=== PATIENT | female | born 2000 | race Caucasian/White ===

== ENCOUNTER 2019-06-30 12:30 | Emergency (ER) | payer OTHER, SELFPAY ==
[2019-06-30 12:51] VITALS: BP 112/67; PULSE 80; RESP 18; TEMP 36.9; O2SAT 100
--- NOTE | 2019-06-30 13:11 | ED.ALLEREA ---
HPI - Allergic Reaction General Chief complaint: Allergic Reaction Stated complaint: ? Allergic reaction Time Seen by Provider: 06/30/19 12:39 Source: patient Mode of arrival: ambulatory Limitations: no limitations History of Present Illness HPI narrative: Patient is a 19-year-old female who presents to emergency department for evaluation of possible allergic reaction with irritation in the throat that began just prior to arrival after drinking a drink patient has a history of allergic reaction took Benadryl just prior to arrival patient notes mild scratchiness of the throat denies other complaints. Related Data Home Medications Medication Instructions Recorded Confirmed sertraline [Zoloft] 25 mg PO DAILY 06/30/19 06/30/19 Allergies Allergy/AdvReac Type Severity Reaction Status Date / Time Penicillins Allergy Intermediate Itching Verified 06/30/19 12:58 tree nut Allergy Intermediate Hives / Verified 06/30/19 12:58 Red Face Review of Systems Review of Systems: All systems reviewed & are unremarkable except as noted in HPI and below PMFSH Past Medical History Medical History Patient denies medical problems Social History Social History Tobacco type: e-cigarettes Gender identity (if verbalized by the patient): Female Exam Narrative: Exam Narrative: GENERAL: Well-appearing, well-nourished, and in no acute distress. HEAD: Normocephalic, atraumatic. EYES: PERRLA and EOMI. ENT: Nares clear, no rhinorrhea or epistaxis. Mucous membranes moist. Oropharynx without tonsillar hypertrophy exudate or other lesions. No angioedema in the oropharynx NECK: Supple. No adenopathy or masses. No stridor CHEST: Clear to auscultation. No respiratory distress. No wheezes rales or rhonchi HEART: Regular rate and rhythm. No murmur heard. Normal peripheral pulses. ABDOMEN: Soft, nontender, nondistended EXTREMITIES: Normal range of motion. No edema. SKIN: Warm, dry, no rash. NEURO: No focal deficits. Alert and oriented x3. Cranial nerves II through XII grossly intact PSYCH: Normal mood and affect. Course Course Emergency Course: Patient resting comfortably in the room in no distress with no worsening scenario afebrile nontoxic-appearing felt appropriate for outpatient reevaluation Vital Signs Vital signs: Vital Signs Temperature 98.5 F 06/30/19 12:51 Pulse Rate 80 06/30/19 12:51 Respiratory Rate 18 06/30/19 12:51 Blood Pressure 112/67 06/30/19 12:51 Pulse Oximetry 100 06/30/19 12:51 Temperature 98.5 F 06/30/19 12:51 Pulse Rate 80 06/30/19 12:51 Respiratory Rate 18 06/30/19 12:51 Blood Pressure 112/67 06/30/19 12:51 Pulse Oximetry 100 06/30/19 12:51 MDM - Allergic Reaction MDM Narrative Medical decision making narrative: Patient in the room in no distress no concerning findings at this time has been observed in the ER for 2 hours with no worsening condition felt appropriate for outpatient reevaluation provided with reasons to return Discharge Plan Discharge Clinical Impression: Allergic reaction Patient Disposition: Home, Self-Care Condition: Stable Instructions: Antibiotic Form, Anaphylaxis (ED) Additional Instructions: Follow up with your primary care provider within 5-7 days. Go to ER for shortness of breath, difficulty breathing, chest pain, fever/chills, weakness, nauseau/vomitting, throat tightening or tongue swelling etc. or any other concerns. Stay well-hydrated Take any prescribed medications as directed. Follow patient education sheets If you do not have a drug allergy to tylenol or motrin and can tolerate it then take tylenol or motrin as needed for discomfort/pain. Prescriptions: No Action sertraline [Zoloft] 25 mg Tablet 25 mg PO DAILY RF: 0 Follow-up/Referrals: UNKNOWN,DOCTOR [Primary Care Provider] -
[2019-06-30] MEDS: FAMOTIDINE 20 MG TABLET PO (13:12)
[2019-06-30] MEDS: predniSONE 20 MG TABLET 60 MG PO (13:12)
== END 2019-06-30 14:48 | disposition home or self-care (01) ==
PROVIDERS: Emergency Provider Emergency Medicine
DX: T78.40XA Allergy, unspecified, initial encounter (principal); F17.290 Nicotine dependence, other tobacco product, uncomplicated
CPT/HCPCS: 99283; A9270; J7512

== ENCOUNTER 2020-08-22 19:00 | Emergency (ER) | payer OTHER, SELFPAY ==
[2020-08-22 19:16] VITALS: BP 113/65; PULSE 80; RESP 16; TEMP 36.5; O2SAT 100
--- NOTE | 2020-08-22 19:45 | ED.BACK ---
HPI - Back Pain/Injury General Chief Complaint: Back Pain/Injury Stated Complaint: fell back pain Source: patient Mode of arrival: ambulatory Limitations: no limitations History of Present Illness HPI Narrative: Patient is a 20-year-old female who presents complaining of lower back pain that radiates down right leg. Patient reports fall while playing soccer approximately 2 weeks ago. Patient reports having x-rays completed and is currently seeing a chiropractor. She denies loss of bowel or bladder control. She reports a history of sciatica. She denies all other complaints at this time. MD elicited complaint: back pain Related Data Home Medications Medication Instructions Recorded Confirmed fluticasone propionate [Flovent 2 puff INHALATION BID 08/22/20 08/22/20 HFA] lamotrigine 50 mg PO DAILY 08/22/20 08/22/20 lithium carbonate 300 mg PO QAM 08/22/20 08/22/20 lithium carbonate 450 mg PO HS 08/22/20 08/22/20 olanzapine 5 mg PO QAM 08/22/20 08/22/20 olanzapine 10 mg PO HS 08/22/20 08/22/20 spironolactone 25 mg PO DAILY 08/22/20 08/22/20 trazodone 100 mg PO HS 08/22/20 08/22/20 Allergies Allergy/AdvReac Type Severity Reaction Status Date / Time tree nut Allergy Severe Anaphylaxis Verified 08/22/20 19:28 Penicillins Allergy Intermediate Hives Verified 08/22/20 19:28 Review of Systems Review of Systems: Narrative: CONSTITUTIONAL: Denies fever, chills, or sweats. EYES: Denies visual changes, redness, or discharge. ENT: Denies rhinorrhea, congestion, sore throat, or otalgia. CARDIOVASCULAR: Denies chest pain, palpitations, or edema. RESPIRATORY: Denies cough or dyspnea. GASTROINTESTINAL: Denies abdominal pain, nausea, vomiting, or diarrhea. GENITOURINARY: Denies dysuria or hematuria. SKIN: Denies rash or itching. MUSCULOSKELETAL: Lower back pain NEUROLOGIC: Denies headache, numbness, dizziness, or weakness. PSYCHIATRIC: Denies anxiety or depression. [facility] Past Medical History Medical History Patient denies medical problems Social History Social History (Updated 08/22/20 @ 19:53 by SAMI Foy) Smoking status: Current every day smoker Tobacco type: e-cigarettes/vaping Alcohol intake: current Alcohol use details: Occasional Substance use: never Living arrangements: with family Gender identity (if verbalized by the patient): Female Comments At the time of signature, I have reviewed and agree with nursing past medical, surgical, social, and family history unless otherwise noted. Please see nursing chart for further information. There is no relevant family history pertinent to the presenting complaint. Exam Narrative: Exam Narrative: GENERAL: Well-appearing, well-nourished, and in no acute distress. HEAD: Normocephalic, atraumatic. EYES: EOMI. No redness or drainage. Conjunctiva are normal. ENT: Mucous membranes pink and moist. CHEST: No respiratory distress. Clear to auscultation. HEART: Regular rate and rhythm. MUSCULOSKELETAL: No bony tenderness. EXTREMITIES: Normal range of motion. No edema. SKIN: Warm, dry, no rash. NEURO: No focal deficits. Alert and oriented x3. Gait steady. PSYCH: Normal affect. No signs of depression or anxiety. Course Vital Signs Vital signs: Vital Signs Temperature 36.5 C 08/22/20 19:16 Pulse Rate 80 08/22/20 19:16 Respiratory Rate 16 08/22/20 19:16 Blood Pressure 113/65 08/22/20 19:16 Pulse Oximetry 100 08/22/20 19:16 Temperature 36.5 C 08/22/20 19:16 Pulse Rate 80 08/22/20 19:16 Respiratory Rate 16 08/22/20 19:16 Blood Pressure 113/65 08/22/20 19:16 Pulse Oximetry 100 08/22/20 19:16 Reviewed MDM - Back Pain/Injury MDM Narrative Medical decision making narrative: Patient reports history of sciatica. Patient most likely has sciatica. Patient refuses x-ray at this time. Discussed use of Tylenol for pain, muscle relaxant as well as steroids. Tim
== END 2020-08-22 19:50 | disposition home or self-care (01) ==
PROVIDERS: Emergency Provider Nurse Practitioner
DX: M54.16 Radiculopathy, lumbar region (principal); M54.31 Sciatica, right side; F17.200 Nicotine dependence, unspecified, uncomplicated; J45.909 Unspecified asthma, uncomplicated; F31.9 Bipolar disorder, unspecified
CPT/HCPCS: 99213; G0463

== ENCOUNTER 2020-09-07 16:26 | Emergency (ER) | payer OTHER, SELFPAY ==
--- NOTE | 2020-09-07 16:44 | ED.FEMALEGU ---
HPI - Female Genitourinary General Chief complaint: Urogenital-Female Stated complaint: uti Time Seen by Provider: 09/07/20 16:44 Source: patient Mode of arrival: ambulatory Limitations: no limitations History of Present Illness HPI Narrative: Linh Lion is a 20 yo female with history of bipolar disorder who saw [facility] on , put on macrobid for dysurua, is not any better and now has back pain Related Data Home Medications Medication Instructions Recorded Confirmed lamotrigine 50 mg PO DAILY 08/22/20 09/07/20 lithium carbonate 300 mg PO QAM 08/22/20 09/07/20 Allergies Allergy/AdvReac Type Severity Reaction Status Date / Time tree nut Allergy Severe Anaphylaxis Verified 08/22/20 19:28 Penicillins Allergy Intermediate Hives Verified 08/22/20 19:28 Review of Systems Review of Systems: Narrative: CONSTITUTIONAL: Denies fever, chills, sweats. EYES: Denies visual changes, redness, discharge. ENT: Denies rhinorrhea, congestion, sore throat, otalgia. CARDIOVASCULAR: Denies chest pain, palpitations, edema. RESPIRATORY: Denies dyspnea, wheezing, cough GASTROINTESTINAL: Denies abdominal pain, nausea, vomiting, diarrhea. GENITOURINARY: Denies dysuria, hematuria, abnormal discharge SKIN: Denies rash or itching. NEUROLOGIC: Denies numbness, or focal weakness. PSYCHIATRIC: Denies anxiety or depression. Worsening dysuria PMFSH Past Medical History Medical History (Updated 09/07/20 @ 16:58 by Sandy Ruiz CNP) Patient denies medical problems Social History Social History Smoking status: Current every day smoker Tobacco type: e-cigarettes/vaping Alcohol intake: current Substance use: never Gender identity (if verbalized by the patient): Female Comments At time of signature, I agree with nursing past medical, surgical, social and family history. There is no relevant family history pertinent to the presenting complaint. Exam Narrative: Exam Narrative: GENERAL: This is a well-nourished, well-developed patient, in mild distress. HEAD: normocephalic, atraumatic. EYES: Sclera clear/white. Vision is grossly intact. EARS: External ears normal, . Hearing grossly intact. NOSE: External nose normal without nasal discharge, nares without redness, no rhinorrhea. THROAT: Mucous membranes moist, NECK: Neck supple, non-tender CARDIOVASCULAR: Regular rate and rhythm without murmurs, gallops, or rubs. RESPIRATORY: Clear to auscultation. Breath sounds equal bilaterally. No wheezes, rales, or rhonchi. GASTROINTESTINAL: Abdomen soft, non-tender, SKIN: warm, intact with no suspicious lesions or rash, good texture and turgor. NEURO: awake, alert, and oriented to person, place and time. There were no obvious focal neurologic abnormalities. Steady gait EXTREMITIES: Normal range of motion. BACK: Nontender without deformity Course Course Emergency Course: Patient seen at [facility] and given Macrobid on Thursday is here with increased back pain and increased dysuria Urine dipstick shows 3+ leukocytes 2+ blood, 2+ protein Patient started on ciprofloxacin-500 mg twice daily x7 days Patient given Pyridium Follow-up with PCP Vital Signs Vital signs: Vital Signs Temperature 97.7 F 09/07/20 16:52 Pulse Rate 103 H 09/07/20 16:52 Respiratory Rate 18 09/07/20 16:52 Blood Pressure 114/63 09/07/20 16:52 Pulse Oximetry 100 09/07/20 16:52 Temperature 97.7 F 09/07/20 16:52 Pulse Rate 103 H 09/07/20 16:52 Respiratory Rate 18 09/07/20 16:52 Blood Pressure 114/63 09/07/20 16:52 Pulse Oximetry 100 09/07/20 16:52 MDM - Female Genitourinary Differential Diagnosis Differential diagnosis: Likely urinary tract infection, vaginitis, cystitis and other Lab Data Labs: Urine Glucose Negative Reference Range: Negative Urine Bilirubin Negative
[2020-09-07 16:52] VITALS: BP 114/63; PULSE 103; RESP 18; TEMP 36.5; O2SAT 100
== END 2020-09-07 17:01 | disposition home or self-care (01) ==
PROVIDERS: Emergency Provider Nurse Practitioner
DX: N30.01 Acute cystitis with hematuria (principal); F17.200 Nicotine dependence, unspecified, uncomplicated; J45.909 Unspecified asthma, uncomplicated; F31.9 Bipolar disorder, unspecified
CPT/HCPCS: 81003; 87086; 87088; 87147; 99213; G0463

== ENCOUNTER 2020-11-03 11:01 | Emergency (ER) | payer OTHER, SELFPAY ==
--- NOTE | ~2020-11-03 | CT_ITS ---
EXAMINATION: CT abdomen pelvis w con DATE: 11/03/2020 12:32 INDICATION: Left abdominal pain. Nausea, vomiting, and diarrhea. TECHNIQUE: Computed tomography (CT) of the abdomen and pelvis was performed with 100 mL Omnipaque 350 intravenous contrast. Automated exposure control and iterative reconstruction technique were employe d. The dose-length product was 240.31 mGy-cm. COMPARISON: None. FINDINGS: The visualized portions of the lung bases demonstrate minimal atelectasis. No pleural effus ion. The heart size is normal. No pericardial effusion. The liver and gallbladder are normal. There i s an 11 mm low-attenuation lesion in the spleen, likely benign. The pancreas, adrenal glands, and kid neys are normal. There is an intrauterine device in abnormal position. One of the tines pierces the m yometrium. There are no dilated loops of bowel. The appendix is normal. There are no pathologically e nlarged lymph nodes. There is trace physiologic fluid in the pelvis. The bones are unremarkable. IMPRESSION: 1. Intrauterine device in abnormal position. One of the tines pierces the myometrium. Reviewed, dictated and finalized at location A. IMPRESSION: 1. Intrauterine device in abnormal position. One of the tines pierces the myome trium.
[2020-11-03 11:02] VITALS: BP 124/73; PULSE 95; RESP 15; TEMP 36.7; O2SAT 100
[2020-11-03 11:31] LABS: Basophils Percent Auto 0.5 % (0.2-1.2); Eosinophils Absolute Auto 0.2 K/mm3 (0-0.3); Eosinophils Percent Auto 2.2 % (0-4.4); Hematocrit 37.9 % (37.0-47.0); Hemoglobin 12.4 g/dL (12.0-15.0); Immature Granulocyte Absolute 0.03 K/mm3 (0.00-0.031); Immature Granulocyte Percent A 0.4 % (0-0.5); Lymphocytes Absolute Auto 1.22 K/mm3 (0.9-3.2); Lymphocytes Percent Auto 16.1 % (18.3-44.2); Mean Corpuscular HGB Conc 32.7 g/dl (32-36); Mean Corpuscular Hemoglobin 28.9 pg (26-34); Mean Corpuscular Volume 88.3 fl (80-100); Mean Platelet Volume 10.5 fl (7.4-10.4); Monocytes Absolute Auto 0.7 K/mm3 (0.1-0.6); Monocytes Percent Auto 9.4 % (2.6-8.5); Neutrophils Absolute Auto 5.4 K/mm3 (1.3-6.7); Neutrophils Percent Auto 71.4 % (45.5-73.1); Platelet Count Result 210 k/mm3 (150-375); Red Blood Count 4.29 M/mm3 (4.2-5.4); Red Cell Distribution Width 12.9 % (11.5-14.5); White Blood Count 7.6 K/mm3 (4.5-10.0)
[2020-11-03 11:37] LABS: Add Urine Microscopic? YES; Appearance Urine Clear (Clear); Bilirubin Urine Negative (Negative); Blood Urine Negative (Negative); Color Urine Yellow (Yellow); Glucose Urine UA Negative (Negative); Ketones Urine Negative (Negative); Leukocyte Esterase Ur Negative LEU/UL (Negative); Mucus Urine Rare /lpf; Nitrate Urine Negative (Negative); Protein Urine 2+ mg/dL (Negative); RBC Urine 0-2 /hpf (0-2); Specific Grav Ur 1.024 (1.001-1.035); Squamous Epithelial Cell Urine Rare /hpf (Few); Urobilinogen Urine Negative mg/dL (<2.0); WBC Urine 0-3 /hpf
[2020-11-03 11:40] LABS: Alanine Aminotransferase 17 U/L (4-35); Albumin Level 4.8 g/dL (3.5-5.1); Alkaline Phosphatase 52 U/L (38-126); Anion Gap 8 mmol/L (8-16); Aspartate Amino Transferase 30 U/L (14-36); Bilirubin,Total 0.9 mg/dL (0.2-1.3); Blood Urea Nitrogen 10 mg/dL (7-17); Carbon Dioxide 26 mmol/L (22-30); Chloride 105 mmol/L (98-107); Estimated CRCL calculation 109 ml/min; Estimated Glomerular Filt Rate > 60; Glucose 88 mg/dL (65-105); Lipase 56 U/L (23-300); Potassium 3.6 mmol/L (3.4-5.0); Sodium 139 mmol/L (137-145)
--- NOTE | 2020-11-03 11:48 | ED.GENADULT ---
HPI - General Adult General Chief complaint: Nausea/Vomiting/Diarrhea Stated complaint: vomiting Time Seen by Provider: 11/03/20 11:08 Source: patient Mode of arrival: ambulatory Limitations: no limitations History of Present Illness HPI narrative: Patient presents for evaluation of nausea, vomiting, diarrhea for the last 2 and half weeks. 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 She came in today because she was concerned that she may have. She denies any fever or chills. Reports dysuria without any hematuria, urinary frequency, hesitancy, or other urinary symptoms. She denies any vaginal discharge. LMP now. Reports occasional alcohol use with last intake last night. She is concerned that she had a small amount of blood noted in her emesis today. Related Data Home Medications Medication Instructions Recorded Confirmed lamotrigine 50 mg PO DAILY 08/22/20 09/07/20 lithium carbonate 300 mg PO QAM 08/22/20 09/07/20 spironolactone 25 mg PO DAILY 11/03/20 Allergies Allergy/AdvReac Type Severity Reaction Status Date / Time tree nut Allergy Severe Anaphylaxis Verified 11/03/20 11:15 Penicillins Allergy Intermediate Hives Verified 11/03/20 11:15 Review of Systems Review of Systems: Narrative: CONSTITUTIONAL: Denies fever, chills, or sweats. EYES: Denies visual changes, redness, or discharge. ENT: Denies rhinorrhea, congestion, sore throat, or otalgia. CARDIOVASCULAR: Denies chest pain, palpitations, or edema. RESPIRATORY: Denies cough or dyspnea. GASTROINTESTINAL: Reports abdominal pain, nausea, vomiting, diarrhea GENITOURINARY: Reports dysuria. Denies urinary frequency, hesitancy, hematuria SKIN: Denies rash or itching. MUSCULOSKELETAL: Denies back pain, joint pain, or myalgia. NEUROLOGIC: Denies headache, numbness, dizziness, or weakness. PSYCHIATRIC: Denies anxiety or depression. [facility] Past Medical History Medical History (Updated 11/03/20 @ 13:08 by Kyle Sánchez, SAMI, ) Anxiety Surgical History Surgical History No pertinent past surgical history Family History Family History Mother No pertinent past medical history Social History Social History (Updated 11/03/20 @ 11:50 by SAMI Barrera, ) Smoking status: Current every day smoker Tobacco type: e-cigarettes/vaping Alcohol intake: current Alcohol use details: Occasional Substance use type: marijuana Living arrangements: with family Gender identity (if verbalized by the patient): Female Spiritual care concerns: No Exam Narrative: Exam Narrative: GENERAL: Well-appearing, well-nourished, and in no acute distress. HEAD: Normocephalic, atraumatic. EYES: PERRLA and EOMI. ENT: Nares clear, no rhinorrhea or epistaxis. Mucous membranes moist. Oropharynx without tonsillar hypertrophy exudate or other lesions. Bilateral TMs pearly castellanos nonbulging NECK: Supple. No adenopathy or masses. No carotid bruits or JVD CHEST: Clear to auscultation. No respiratory distress. No wheezes rales or rhonchi HEART: Regular rate and rhythm. No murmur heard. Normal peripheral pulses. ABDOMEN: Soft, tenderness noted in epigastric region, left upper and left lower quadrants. Nondistended, normal active bowel sounds. EXTREMITIES: Normal range of motion. No edema. SKIN: Warm, dry, no rash. NEURO: No focal deficits. Alert and oriented x3. PSYCH: Normal mood and affect Course Course Emergency Course: This is a 20-year-old female who presented with complaints of nausea, vomiting, diarrhea. CT scan was essentially normal. She did have piercing of myometrium without complication. She was advised to follow up with [facility] for this. She requested discharge orders home. Labs were stable and patient was nontoxic appearing. Plans to discharge with Zofran and Lomotil an
[2020-11-03] MEDS: ONDANSETRON INJ 4 MG/2 ML VIAL IV PUSH (11:57)
[2020-11-03] MEDS: SODIUM CHLORIDE 0.9% IV 1,000 ML 999 ML IV CONT (11:57)
[2020-11-03] MEDS: FAMOTIDINE 20 MG/2 ML VIAL IV PUSH (11:57)
[2020-11-03 13:01] VITALS: BP 106/72; PULSE 91; RESP 18; O2SAT 100
== END 2020-11-03 13:22 | disposition home or self-care (01) ==
PROVIDERS: Emergency Provider Nurse Practitioner; PCP Emergency Medicine
DX: R11.2 Nausea with vomiting, unspecified (principal); R19.7 Diarrhea, unspecified; T83.32XA Displacement of intrauterine contraceptive device, initial encounter; F41.9 Anxiety disorder, unspecified; F17.290 Nicotine dependence, other tobacco product, uncomplicated
CPT/HCPCS: 36415; 74177; 80053; 81001; 81025; 83690; 85025; 96361; 96374; 96375; 99284; J2405; J7030; Q9967

== ENCOUNTER 2021-02-06 16:00 | Emergency (ER) | payer OTHER, MEDICAID, SELFPAY ==
[2021-02-06] VITALS (14 sets, daily range): BP systolic 99–127; BP diastolic 64–82; PULSE 78–93; RESP 14–24; TEMP 36.4; O2SAT 94–100
--- NOTE | ~2021-02-06 | XR_ITS ---
XR chest 2V DATE: 02/06/2021 16:39 INDICATION: Chest pain. Recent onset of control medication. TECHNIQUE: PA and lateral views COMPARISON: 04/10/2019 2 view chest FINDINGS: Normal heart size. No hilar or mediastinal enlargement. No pulmonary infiltrate or consolid ation, pleural effusion or pulmonary vascular congestion or pneumothorax. Included skeletal structures are unremarkable. IMPRESSION: Negative chest Negative chest does not preclude the possibility of pulmonary embolism. CT pulmonary scan would be mo re sensitive for detection of pulmonary emboli. Reviewed, dictated and finalized at location B. IMPRESSION: Negative chest Negative chest does not preclude the possibility of pulmonary embolism. CT pulm onary scan would be more sensitive for detection of pulmonary emboli.
--- NOTE | 2021-02-06 16:02 | ECG_ITS ---
Measurements Intervals [place] Rate: 80 P: TX: 0 QRS: 77 QRSD: 83 T: 57 QT: 350 QTc: 404 Interpretive Statements SINUS RHYTHM NORMAL ECG Electronically Signed On 02-06-2021 20:19:03 CDT by Guerrero Jara D.O.
[2021-02-06 16:39] LABS: Basophils Percent Auto 0.4 % (0.2-1.2); Eosinophils Absolute Auto 0.2 K/mm3 (0-0.3); Hematocrit 38.9 % (37.0-47.0); Hemoglobin 13.2 g/dL (12.0-15.0); Immature Granulocyte Absolute 0.02 K/mm3 (0.00-0.031); Immature Granulocyte Percent A 0.3 % (0-0.5); Lymphocytes Absolute Auto 1.82 K/mm3 (0.9-3.2); Lymphocytes Percent Auto 25.6 % (18.3-44.2); Mean Corpuscular HGB Conc 33.9 g/dl (32-36); Mean Corpuscular Hemoglobin 29.1 pg (26-34); Mean Corpuscular Volume 85.9 fl (80-100); Mean Platelet Volume 10.7 fl (7.4-10.4); Monocytes Absolute Auto 0.5 K/mm3 (0.1-0.6); Monocytes Percent Auto 6.5 % (2.6-8.5); Neutrophils Absolute Auto 4.6 K/mm3 (1.3-6.7); Neutrophils Percent Auto 64.2 % (45.5-73.1); Platelet Count Result 219 k/mm3 (150-375); Red Blood Count 4.53 M/mm3 (4.2-5.4); Red Cell Distribution Width 12.4 % (11.5-14.5); White Blood Count 7.1 K/mm3 (4.5-10.0)
[2021-02-06 16:51] LABS: Anion Gap 10 mmol/L (8-16); Blood Urea Nitrogen 8 mg/dL (7-17); Calcium 9.1 mg/dL (8.4-10.2); Carbon Dioxide 26 mmol/L (22-30); Chloride 105 mmol/L (98-107); Estimated CRCL calculation 109 ml/min; Estimated Glomerular Filt Rate > 60; Glucose 96 mg/dL (65-110); Potassium 3.9 mmol/L (3.4-5.0); Sodium 141 mmol/L (137-145)
[2021-02-06 17:00] LABS: Prothrombin Time 12.7 Seconds (11.1-14.7)
[2021-02-06 17:01] LABS: Partial Thromboplastin Time 34.2 SECONDS (22.3-36.8)
[2021-02-06 17:03] LABS: D Dimer 0.31 ug/mL (<0.48)
[2021-02-06 17:04] LABS: Troponin I < 0.012 ng/mL (0.000-0.034)
[2021-02-06] MEDS: ASPIRIN 81 MG CHEWABLE TABLET 324 MG PO (17:44)
--- NOTE | 2021-02-06 17:52 | ED.CHESTPAIN ---
HPI - Chest Pain General Chief Complaint: Chest Pain Stated Complaint: CHEST PAIN X4D Time Seen by Provider: 02/06/21 17:49 Source: patient Mode of arrival: ambulatory Limitations: no limitations History of Present Illness HPI narrative: Patient is a 20-year-old female presenting for evaluation of chest pain over the past 72 hours. Patient reports she has intermittent pain as well as palpitations. Pain is dull, aching in nature without radiation to the neck, jaw, shoulder. No associated shortness of breath. At times she feels her heart is pounding. She states it may be related to stress but was seen by her primary care physician today who referred her to this facility for evaluation. Patient has a Nexplanon implant for control. No recent car or air travel. No history of coagulopathy. History of Covid in April 2020, she was not hospitalized for this. She is now Covid vaccinated. She denies recent upper respiratory infection, congestion, runny nose. She denies cough or shortness of breath. No leg swelling or calf pain. Patient does use e-cigarettes/vaping. Denies other drug use. No vomiting or diaphoresis. Patient states she currently feels well and has no pain Related Data Home Medications Medication Instructions Recorded Confirmed lamotrigine 50 mg PO DAILY 08/22/20 09/07/20 lithium carbonate 300 mg PO QAM 08/22/20 09/07/20 spironolactone 25 mg PO DAILY 11/03/20 Allergies Allergy/AdvReac Type Severity Reaction Status Date / Time tree nut Allergy Severe Anaphylaxis Verified 11/03/20 11:15 Penicillins Allergy Intermediate Hives Verified 11/03/20 11:15 Review of Systems Review of Systems: CONSTITUTIONAL: Denies fever, chills, or sweats. EYES: Denies visual changes, redness, or discharge. ENT: Denies rhinorrhea, congestion, sore throat, or otalgia. CARDIOVASCULAR: Reports chest pain, palpitations, denies edema RESPIRATORY: Denies cough or dyspnea. GASTROINTESTINAL: Denies abdominal pain, nausea, vomiting, or diarrhea. GENITOURINARY: Denies dysuria or hematuria. SKIN: Denies rash or itching. MUSCULOSKELETAL: Denies back pain, joint pain, or myalgia. NEUROLOGIC: Denies headache, numbness, or weakness. PSYCHIATRIC: Reports anxiety PMFSH Past Medical History Medical History Anxiety Surgical History Surgical History No pertinent past surgical history Family History Family History Mother No pertinent past medical history Social History Social History Smoking status: Current every day smoker Tobacco type: e-cigarettes/vaping Alcohol intake: current Alcohol use details: Occasional Substance use type: marijuana Gender identity (if verbalized by the patient): Female Spiritual care concerns: No Exam Narrative: GENERAL: Awake, alert, conversant HEAD: Normocephalic, atraumatic. EYES: PERRLA and EOMI. ENT: Nares clear, no rhinorrhea or epistaxis. Mucous membranes moist. NECK: Supple. CHEST: No respiratory distress, breathing even and non labored, no reproducible chest wall pain HEART: Regular rate, sinus rhythm ABDOMEN:Non distended, non tender EXTREMITIES: Normal range of motion. No edema. No calf pain or tenderness. SKIN: Warm, dry, no rash. NEURO:No focal deficits. Alert and oriented x3 Course Vital Signs Vital signs: Vital Signs Temperature 36.4 C 02/06/21 16:05 Pulse Rate 78 02/06/21 16:05 Respiratory Rate 14 02/06/21 16:05 Blood Pressure 127/78 02/06/21 16:05 Pulse Oximetry 98 02/06/21 16:05 Temperature 36.4 C 02/06/21 16:05 Pulse Rate 85 02/06/21 17:49 Respiratory Rate 15 02/06/21 17:49 Blood Pressure 111/67 02/06/21 17:49 Pulse Oximetry 100 02/06/21 17:49 MDM - Chest Pain MDM Narrative Medical decision jerry
== END 2021-02-06 18:40 | disposition home or self-care (01) ==
PROVIDERS: Emergency Medicine; Emergency Provider Emergency Medicine; PCP Emergency Medicine
DX: R07.89 Other chest pain (principal); Z86.16 Personal history of COVID-19; F17.290 Nicotine dependence, other tobacco product, uncomplicated; F41.9 Anxiety disorder, unspecified
CPT/HCPCS: 36415; 71046; 80048; 81025; 84484; 85025; 85380; 85610; 85730; 93005; 99284; A9270

== ENCOUNTER → 2021-03-12 12:31 | Outpatient (CLI) | payer OTHER, MEDICAID, SELFPAY ==
--- NOTE | ~2021-03-12 | XR_ITS ---
XR chest 2V DATE: 03/12/2021 12:55 INDICATION: Productive cough and wheezing TECHNIQUE: PA and lateral views COMPARISON: None FINDINGS: Normal heart size. No hilar or mediastinal enlargement. No pulmonary vascular congestion or pleural effusion or pneumothorax. Minimal dextroscoliosis of the thoracic spine. IMPRESSION: No active cardiopulmonary disease Reviewed, dictated and finalized at location A. CE ARTIST
== END ==
PROVIDERS: PCP Emergency Medicine; Visit Provider Emergency Medicine
DX: R05.9 Cough, unspecified (principal); R06.2 Wheezing
CPT/HCPCS: 71046

== ENCOUNTER → 2021-03-13 02:11 | Outpatient (CLI) | payer OTHER, MEDICAID, SELFPAY ==
[2021-03-13 18:47] LABS: SARS-CoV-2 RNA PCR Negative
== END ==
PROVIDERS: PCP Emergency Medicine; Visit Provider Emergency Medicine
DX: J06.9 Acute upper respiratory infection, unspecified (principal); Z20.822 Contact with and (suspected) exposure to COVID-19
CPT/HCPCS: C9803; U0003; U0005

== ENCOUNTER 2021-03-18 19:26 | Emergency (ER) | payer OTHER, MEDICAID, SELFPAY ==
[2021-03-18 19:36] VITALS: BP 125/74; PULSE 87; RESP 16; TEMP 36.8; O2SAT 100
--- NOTE | 2021-03-18 19:51 | ED.URI ---
HPI - URI/Sore Throat General Chief Complaint: Upper Respiratory Infection Stated Complaint: Congestion Time Seen by Provider: 03/18/21 19:51 Source: patient, RN notes reviewed and old records reviewed Mode of arrival: ambulatory Limitations: no limitations History of Present Illness HPI Narrative: 20-year-old female presents to the [facility] with multiple symptoms that have been going on for over a month. Saw primary care provider Dr. Rose last week and was Covid and negative chest x-ray. Was prescribed a azithromycin at that time and states that she still has not better. No [id number] products tried. Patient is a vapor. Related Data Home Medications Medication Instructions Recorded Confirmed lamotrigine 50 mg PO DAILY 08/22/20 03/18/21 lithium carbonate 300 mg PO QAM 08/22/20 03/18/21 spironolactone 25 mg PO DAILY 11/03/20 03/18/21 Allergies Allergy/AdvReac Type Severity Reaction Status Date / Time tree nut Allergy Severe Anaphylaxis Verified 03/18/21 19:57 Penicillins Allergy Intermediate Hives Verified 03/18/21 19:57 Review of Systems Review of Systems: All systems reviewed & are unremarkable except as noted in HPI and below Constitutional: Constitutional: Reports no additional constitutional complaints, Denies chills and Denies fever(s) Eyes: Eyes: Reports no additional eye complaints ENT: Reports as per HPI, Reports nasal congestion and Reports sore throat Cardiovascular: Cardiovascular: Reports no additional cardiovascular complaints and Denies chest pain Respiratory: Respiratory: Reports no additional respiratory complaints, Reports chest congestion, Reports cough, Denies dyspnea and Denies wheezing Gastrointestinal: Gastrointestinal: Reports no additional gastrointestinal complaints, Denies abdominal pain, Denies nausea and Denies vomiting Genitourinary: Genitourinary: Reports no additional female genitourinary complaints Musculoskeletal: Musculoskeletal: Reports no additional musculoskeletal complaints Integumentary/Breasts: Skin/Breast: Reports system reviewed and no additional complaints, except as docu Neurologic: Reports system reviewed and no additional complaints, except as documented Psychiatric: Psychiatric: Reports no additional psychiatric complaints Allergic/Immunologic: Allergic/Immunologic: Reports no additional allergic/immunologic complaints PMFSH Past Medical History Medical History Anxiety Surgical History Surgical History No pertinent past surgical history Family History Family History Mother No pertinent past medical history Social History Social History Smoking status: Current every day smoker Tobacco type: e-cigarettes/vaping Alcohol intake: current Alcohol use details: Occasional Substance use type: marijuana Gender identity (if verbalized by the patient): Female Spiritual care concerns: No Comments At the time of my signature, I reviewed and agree with the nursing past medical, surgical, social, and family history. There is no relevant family history pertinent to the patient complaint. Exam Const: General: healthy appearing, no acute distress and alert Nutritional Appearance: well nourished Orientation/consciousness: patient oriented x3 Limitations: no limitations HENMT: Head: normal to inspection Ears: external ears normal, TM's normal bilaterally and EAC's normal Face and sinus: normal facial exam and face symmetric Mouth: Yes Normal oral and palatal mucosa present Throat: posterior oropharynx normal, tonsils normal and uvula midline Eyes: Conjunctivae: conjunctivae normal Pupils: Equal, round and reactive pupils present Neck: Neck: normal visual inspection, no lymphadenopathy and no meningeal signs Chest: Chest palpation & inspe
== END 2021-03-18 20:25 | disposition home or self-care (01) ==
PROVIDERS: Emergency Provider Nurse Practitioner; PCP Emergency Medicine
DX: J40 Bronchitis, not specified as acute or chronic (principal); F17.200 Nicotine dependence, unspecified, uncomplicated
CPT/HCPCS: 87804; 99213; G0463

== ENCOUNTER 2021-05-22 16:30 | Emergency (ER) | payer OTHER, MEDICAID, SELFPAY ==
--- NOTE | ~2021-05-22 | CT_ITS ---
EXAMINATION: CT brain wo con DATE: 05/22/2021 21:26 INDICATION: Headache TECHNIQUE: Computed tomography (CT) of the head was performed without intravenous contrast. The mA wa s adjusted according to patient size. Iterative reconstruction technique was employed. Exam dose: 60 5.33 mGy-cm total exam DLP. COMPARISON: None FINDINGS: No intracranial mass lesion or hemorrhage or cerebrovascular accident. No midline shift or mass effect. Normal ventricular size. Normal castellanos-white matter differentiation. No subdural or epidur al hematoma. No fracture or bone destruction of the cranial vault. Focal opacified right anterior ethmoid air cell. The paranasal sinuses and mastoid air cells are othe rwise unremarkable. IMPRESSION: Focal opacified anterior right ethmoid air cell Reviewed, dictated and finalized at [facility] Reviewed, dictated and finalized at [facility]. [employer]
[2021-05-22 16:34] VITALS: BP 118/69; PULSE 87; RESP 16; TEMP 36.1; O2SAT 100
--- NOTE | 2021-05-22 18:54 | PC.NURSE ---
Ice pack given to pt
[2021-05-22] MEDS: PROCHLORPERAZINE EDISYLATE 10 MG/2 ML VIAL 5 MG IV PUSH (20:51)
[2021-05-22] MEDS: KETOROLAC 30 MG/ML VIAL (*BKC) IV PUSH (20:51)
[2021-05-22] MEDS: SODIUM CHLORIDE 0.9% IV 1,000 ML 999 ML IV CONT (20:51)
[2021-05-22] MEDS: diphenhydrAMINE HCl INJ 50 MG/ML VIAL 25 MG IV PUSH (20:52)
[2021-05-22 21:06] LABS: Basophils Absolute Auto 0.1 K/mm3 (0.0-0.1); Basophils Percent Auto 0.8 % (0.2-1.2); Hematocrit 38.7 % (37.0-47.0); Hemoglobin 13.1 g/dL (12.0-15.0); Immature Granulocyte Absolute 0.02 K/mm3 (0.00-0.031); Immature Granulocyte Percent A 0.3 % (0-0.5); Lymphocytes Absolute Auto 1.62 K/mm3 (0.9-3.2); Lymphocytes Percent Auto 20.4 % (18.3-44.2); Mean Corpuscular HGB Conc 33.9 g/dl (32-36); Mean Corpuscular Hemoglobin 29.4 pg (26-34); Mean Corpuscular Volume 86.8 fl (80-100); Mean Platelet Volume 10.7 fl (7.4-10.4); Monocytes Absolute Auto 0.4 K/mm3 (0.1-0.6); Monocytes Percent Auto 4.9 % (2.6-8.5); Neutrophils Absolute Auto 5.9 K/mm3 (1.3-6.7); Neutrophils Percent Auto 73.6 % (45.5-73.1); Platelet Count Result 244 k/mm3 (150-375); Red Blood Count 4.46 M/mm3 (4.2-5.4); Red Cell Distribution Width 12.4 % (11.5-14.5)
[2021-05-22 21:11] LABS: Add Urine Microscopic? YES; Amorphous Sediment Urine Moderate; Appearance Urine Cloudy (Clear); Bilirubin Urine Negative (Negative); Blood Urine Negative (Negative); Color Urine Yellow (Yellow); Glucose Urine UA Negative (Negative); Ketones Urine Trace mg/dL (Negative); Leukocyte Esterase Ur Negative LEU/UL (Negative); Mucus Urine Rare /lpf; Nitrate Urine Negative (Negative); Protein Urine Negative (Negative); Specific Grav Ur 1.016 (1.001-1.035); Squamous Epithelial Cell Urine Rare /hpf (Few); Urobilinogen Urine Negative mg/dL (<2.0)
[2021-05-22 21:18] LABS: Anion Gap 11 mmol/L (8-16); Blood Urea Nitrogen 12 mg/dL (7-17); Calcium 9.5 mg/dL (8.4-10.2); Carbon Dioxide 26 mmol/L (22-30); Chloride 105 mmol/L (98-107); Estimated CRCL calculation 108 ml/min; Estimated Glomerular Filt Rate > 60; Glucose 102 mg/dL (65-110); Potassium 3.9 mmol/L (3.4-5.0); Sodium 142 mmol/L (137-145)
--- NOTE | 2021-05-22 21:39 | ED.HA ---
HPI - Headache General Chief Complaint: Headache Stated Complaint: headache Time Seen by Provider: 05/22/21 20:21 Source: patient Mode of arrival: ambulatory Limitations: no limitations History of Present Illness HPI Narrative: 21-year-old with a history of bipolar disorder, chronic migraine here with complaints of headache for last 3 days. Patient states that she has taken ibuprofen, naproxen, Tylenol with relief. Patient also states that she is nauseated and has thrown up several times. She denies any fever or chills. She also complains of scotomas. She states that she has a neurologist at [facility] but has not followed up with them for quite some time. MD elicited complaint: migraine Onset (ago): day(s) (4) Onset description: gradually Location: frontal Severity: moderate Relieving factors: nothing Associated symptoms: nausea and vomiting Treatments prior to arrival: acetaminophen and ibuprofen Related Data Home Medications Medication Instructions Recorded Confirmed bupropion HCl 150 mg PO DAILY 05/22/21 05/22/21 lamotrigine 150 mg PO DAILY 05/22/21 05/22/21 olanzapine 5 mg PO DAILY 05/22/21 05/22/21 Allergies Allergy/AdvReac Type Severity Reaction Status Date / Time tree nut Allergy Severe Anaphylaxis Verified 05/22/21 19:58 Penicillins Allergy Intermediate Hives Verified 05/22/21 19:58 Review of Systems Review of Systems: All systems reviewed & are unremarkable except as noted in HPI and below Constitutional: Constitutional: Reports no additional constitutional complaints Eyes: Eyes: Reports no additional eye complaints ENT: Reports system reviewed and no additional complaints, except as documented Cardiovascular: Cardiovascular: Reports no additional cardiovascular complaints Respiratory: Respiratory: Reports no additional respiratory complaints Gastrointestinal: Gastrointestinal: Reports as per HPI Integumentary/Breasts: Skin/Breast: Reports system reviewed and no additional complaints, except as docu Neurologic: Reports as per HPI Psychiatric: Psychiatric: Reports no additional psychiatric complaints Endocrine: Endocrine: Reports no additional endocrine complaints [facility] Past Medical History Medical History Anxiety Surgical History Surgical History No pertinent past surgical history Family History Family History Mother No pertinent past medical history Social History Social History Smoking status: Current every day smoker Tobacco type: e-cigarettes/vaping Alcohol intake: current Alcohol use details: Occasional Substance use type: marijuana Gender identity (if verbalized by the patient): Female Spiritual care concerns: No Exam Narrative: GENERAL: Well-appearing, well-nourished, and in no acute distress. HEAD: Normocephalic, atraumatic. EYES: PERRLA and EOMI. ENT: Nares clear, no rhinorrhea or epistaxis. Mucous membranes moist. NECK: Supple. CHEST: Clear to auscultation. No respiratory distress. HEART: Regular rate and rhythm. No murmur heard. Normal peripheral pulses. ABDOMEN: Soft, nontender, nondistended, normal active bowel sounds. EXTREMITIES: Normal range of motion. No edema. SKIN: Warm, dry, no rash. NEURO: No focal deficits. Alert and oriented x3. PSYCH: Normal mood and affect. Course Course Emergency Course: Patient feeling slightly better. Informed her about her lab work, CT findings. Advised her to continue home medication Vital Signs Vital signs: Vital Signs Temperature 36.1 C L 05/22/21 16:34 Pulse Rate 87 05/22/21 16:34 Respiratory Rate 16 05/22/21 16:34 Blood Pressure 118/69 05/22/21 16:34 Pulse Oximetry 100 05/22/21 16:34 Temperature 36.1 C L 05/22/21 16:34 Pulse Rate 87 05/22/21 16:34
== END 2021-05-22 21:54 | disposition home or self-care (01) ==
PROVIDERS: Emergency Provider Family Medicine; PCP Emergency Medicine
DX: G43.919 Migraine, unspecified, intractable, without status migrainosus (principal); F41.9 Anxiety disorder, unspecified
CPT/HCPCS: 36415; 70450; 80048; 81001; 85025; 96361; 96374; 96375; 99284; J0780; J1200; J1885; J7030

== ENCOUNTER 2021-06-19 10:25 | Outpatient (CLI) | payer OTHER, MEDICAID, SELFPAY | END 2021-06-19 10:26 | disposition home or self-care (01) | LOC: ANHSURGERY 10:32 | PROVIDERS: PCP Physician Assistant; Visit Provider Obstetrics & Gynecology | DX: R10.2 Pelvic and perineal pain (principal); Z01.818 Encounter for other preprocedural examination | CPT/HCPCS: 36415; 86850; 86900; 86901 ==

== ENCOUNTER 2021-06-21 02:01 | Day surgery (SDC) | payer OTHER, MEDICAID, SELFPAY ==
[2021-06-18 13:01] VITALS: BMI 20.5
--- NOTE | 2021-06-18 13:14 | PC.NURSE ---
Report to the Outpatient Waiting Room, entrance under the green pavilion located off [facility], at time 9:45 on date 06/21/21. OR Time: 11:45. - You and your visitor will be asked a series of questions to screen for COVID 19 for your protection. - A mask is required within the hospital. One visitor will be allowed to accompany the patient into the hospital. Patients visitor will be instructed to remain with patient at all times or leave the building. We will allow the visitor to come back to the postoperative area when patient is ready. Preoperative COVID Testing Requirements: No COVID Test needed if: (proof is required; if not received patient will have Rapid Test prior to entry) - Patient has received COVID Vaccine at least 14 days prior to procedure date or - Patient has positive COVID test result within last 90 days of surgery date. COVID Test needed if above criteria is not met Patients may have clear liquids (water, carbonated beverages, clear teas, apple juice) until 3 hours prior to surgery (8:45) with a maximum of 20 ounces. - No food from midnight until time of surgery Take the following medications with a SIP of water the morning of surgery: WELLBUTRIN, LAMOTRIGINE, OLANZAPINE Medications to discontinue per physician: N/A Date to take last dose: N/A Please no make-up, nail wolof, hairspray, perfume, deodorant, or body powder the day of surgery. No jewelry (including any body piercings) or valuables the day of surgery, leave them at home. Please take a shower or bath the night before, or the morning of, surgery with an antibacterial soap. Wear comfortable, loose fitting clothing. - Jewelry must be removed prior to entering the operating room. Rings and piercings that are not removed may be cut off. - The hospital will not accept responsibility for valuables. - Please leave all valuables, including medications, at home the day of surgery. If you are going home after surgery, a licensed wagon driver salesperson must drive you home. - NO public transportation without another adult. - We recommend that an adult stay with you for 24 hours following discharge. - We also recommend that you do not drive, make important decision, drink alcoholic beverages, or take any drugs that were not prescribed by your health care provider for at least 24 hours after your discharge time. Follow any additional instructions given to you from your surgeon. Telephone instructions given to HARVEY MACHADO and asked if any additional questions and then verbalized understanding. Patient advised to call surgeon office or pre surgery nurse liaison [phone] if any additional questions.
--- NOTE | 2021-06-19 07:59 | PM.IMHP ---
H&P: HPI History of Present Illness Date/Time: 06/19/21 07:59 This is 21-year-old female admitted for diagnostic laparoscopy secondary to pain and discomfort. She has had pain with intercourse with the negative appearing ultrasound. There is a strong family history of endometriosis. Risks and benefits reviewed including but not exclusive of , aspiration pneumonia, bleeding, transfusion, perforation injury to bowel, bladder, ureters, or other internal organs with need for open laparotomy. She received the [employer]CO[employer] handout entitled laparoscopy. She had all questions answered. She asked to proceed Chief Complaint: Pelvic pain/dyspareunia Review of Systems Review of Systems: All systems reviewed & are unremarkable except as noted in HPI and below PMFSH Past Medical History Medical History Anxiety Surgical History Surgical History No pertinent past surgical history Family History Family History Mother No pertinent past medical history Social History Social History Smoking status: Current every day smoker Tobacco type: e-cigarettes/vaping Alcohol intake: current Alcohol use details: 2/MONTH Substance use: never Substance use type: does not use Gender identity (if verbalized by the patient): Female Spiritual care concerns: No Meds Home Medications and Allergies Home Medications Medication Instructions Recorded Confirmed Type bupropion HCl 150 mg PO DAILY 05/22/21 06/18/21 History lamotrigine 150 mg PO DAILY 05/22/21 06/18/21 History olanzapine 5 mg PO DAILY PRN 05/22/21 06/18/21 History dextroamphetamine-amphetamine 10 mg PO DAILY 06/18/21 06/18/21 History [Adderall XR] Allergies Allergy/AdvReac Type Severity Reaction Status Date / Time tree nut Allergy Severe Anaphylaxis Verified 06/18/21 13:00 cefdinir [From Omnicef] Allergy Hives Verified 06/18/21 13:00 Exam Const: General: no acute distress Eyes: General: appearance normal, both eyes and all related structures Neck: Neck: supple and no JVD Thyroid: thyroid normal Resp: Effort & Inspection: normal respiratory effort Auscultation: clear to auscultation bilaterally Cardio: Rate: regular rate Rhythm: regular rhythm GI: Inspection: non-distended GI Palp: Yes Soft to palpation, No Tenderness to palpation present (GI) and No Guarding due to palpation present (GI) Auscultation: normal bowel sounds : External Female Exam: normal external appearance Speculum Exam - Vagina: normal appearance of the vagina Speculum Exam - Cervix: normal appearance of the cervix Bimanual exam- vagina & uterus: uterine size normal and Uterine tenderness Bimanual Exam- Adnexa, other: tender bilaterally Skin: General skin exam: no rashes or lesions noted Extrem: General: normal to inspection and no edema Psych: Mental Status: mental status grossly normal Affect: normal affect Assessment and Plan Additional Plan Impression: Chronic pelvic pain Plan: Diagnostic laparoscopy
[2021-06-21] VITALS (10 sets, daily range): BP systolic 109–134; BP diastolic 66–79; PULSE 74–97; RESP 11–20; TEMP 36.2–37.6; O2SAT 95–100
--- NOTE | 2021-06-21 06:42 | WPDHPUPDATE1 ---
History and Physical Update Update Date/Time: 06/21/21 06:42 History and Physical has been reviewed, including an updated exam of the patient. There are NO changes in the patient's condition. Risks, benefits, and alternatives have been discussed and questions answered. Patient agrees to proceed with procedure.
--- NOTE | 2021-06-21 10:20 | P.PNAN_ITS ---
Anes - Initial Pre Proc Eval Procedure: Operation Date: 06/21/21 11:45 Proposed Procedures p Diagnostic Laparoscopy - Philip Ahmadi MD Date/Time: 06/21/21 10:20 Surgeon: Philip Ahmadi MD Pre Op Diagnosis: Pelvic Pain Patient Data Age: 21 Gender: F Height: 1.63 m Weight: 58.2 kg Allergies Allergy/AdvReac Type Severity Reaction Status Date / Time tree nut Allergy Severe Anaphylaxis Verified 06/21/21 10:07 cefdinir [From Omnicef] Allergy Hives Verified 06/21/21 10:07 Home Medications Medication Instructions Recorded Confirmed Type bupropion HCl 150 mg PO DAILY 05/22/21 06/21/21 History lamotrigine 150 mg PO DAILY 05/22/21 06/21/21 History olanzapine 5 mg PO DAILY PRN 05/22/21 06/21/21 History dextroamphetamine-amphetamine 10 mg PO DAILY 06/18/21 06/21/21 History [Adderall XR] hydrocodone-acetaminophen 1 tablet PO Q4H PRN #20 tablet 06/21/21 Rx Patient hx anesthesia problems: none Family hx anesthesia problems: none Results Review: All pre-operative results and documents have been reviewed as part of the pre-operative evaluation. [facility] Past Medical History Medical History Anxiety Surgical History Surgical History No pertinent past surgical history Family History Family History Mother No pertinent past medical history Social History Social History Smoking status: Current every day smoker Tobacco type: e-cigarettes/vaping Alcohol intake: current Alcohol use details: Occasional Substance use type: marijuana Living arrangements: with family Gender identity (if verbalized by the patient): Female Spiritual care concerns: No Anes - Eval Final PreProcedure Day of Procedure 06/21/21 10:20 Patient weight: normal Heart: regular rate and rhythm Lungs: clear to auscultation Airway: Mallampati scale class II Neurological: alert and oriented Last oral intake: >/= 8 hours ASA classification: II Emergent: no Anesthetic plan: proceed Anesthesia type and monitoring: general ETT and standard monitoring Results Review: All pre-operative results and documents have been reviewed as part of the pre-operative evaluation. Informed Consent: The patient's anesthetic plan and its attendant risks and benefits were discussed with the patient/family/POA. Questions were solicited and answers provided to the satisfaction of the patient/family/POA.
[2021-06-21] MEDS: LACTATED RINGERS 1,000 ML 30 ML IV CONT (10:30)
[2021-06-21] MEDS: ACETAMINOPHEN 500 MG TABLET 1000 MG PO (10:30)
[2021-06-21] MEDS: KETOROLAC 15 MG/ML VIAL (*BKC) IV PUSH (10:33)
--- NOTE | 2021-06-21 11:56 | W.PM.PROC2 ---
Procedure Note - Detailed Date of Procedure 06/21/21 Pre-op Diagnosis Pelvic Pain Post-op Diagnosis other (endometriosis) Procedure Performed Laparoscopy with destruction of endometriosis Surgeon Philip Ahmadi MD Anesthesia general Indications A 21-year-old female with a history of endometriosis admitted for diagnostic laparoscopy secondary to severe pelvic pain refractory to medical therapy Findings Normal-appearing ovaries tubes and uterus. Endometriosis along the right left uterosacral ligament in the form of powder burn. [id number] of serosanguineous fluid in the cul-de-sac. Normal-appearing appendix and gallbladder and liver edge. Description of Procedure The patient was prepped draped sterile fashion placed in the dorsal lithotomy position. Under excellent general trach anesthesia weighted speculum placed posterior fornix vagina. Anterior lip of the cervix grasped with single-tooth tenacula Kanpp's cannula inserted the cervix. These 2 were attached to each other later for uterine manipulation. After emptying the bladder of over 400cc clear urine the weighted speculum was removed. The gloves were changed An infraumbilical incision made the Veress needle passed in the abdomen. Abdomen filled with CO2 gas [id number]. The 5mm trocar advanced under direct visualization with the Optiview and no injury seen. Patient placed in Trendelenburg and a suprapubic incision made. The 5mm trocar advanced under direct visualization assuring no injury. The 10cc of serosanguineous fluid was suctioned and removed followed by irrigation. Ovaries and tubes appeared within normal limits as did the uterus the appendix gallbladder liver edge appeared within normal limits areas of blistered endometriosis and alexandrea powder burn endometriosis was seen along the right left uterosacral ligament. This was point cauterized at 35 w per 2nd with monopolar cautery. Irrigation undertaken after that and no other abnormalities seen. The the lower site removed. The gas removed from the abdomen. The patient returned to the lithotomy position. The trocars and gas removed from the abdomen the incisions closed with 4 Monocryl and glue. Patient went to recovery in satisfactory condition. All sponge, needle, instrument counts were correct. There were no immediate complications Estimated Blood Loss 5 Drains No Packing No Pathology none sent Complications No immediate complications Condition stable Disposition PACU
[2021-06-21] MEDS: fentaNYL CITRATE INJ (*CRX) 100 MCG/2 ML VIAL 25 MCG IV PUSH ×8 (12:16→13:03)
[2021-06-21] MEDS: HYDROmorphone HCL INJ (*CRX) 1 MG/ML SYR 0.5 MG IV PUSH ×4 (13:15→13:30)
== END 2021-06-21 14:10 | disposition home or self-care (01) ==
PROVIDERS: PCP Physician Assistant; Visit Provider Obstetrics & Gynecology
PROC: (CPT 49320; principal; 2021-06-21 11:45)
DX: R10.2 Pelvic and perineal pain (principal); N80.3 Endometriosis of pelvic peritoneum; F41.9 Anxiety disorder, unspecified; F17.290 Nicotine dependence, other tobacco product, uncomplicated; F12.90 Cannabis use, unspecified, uncomplicated
CPT/HCPCS: 58662; 36415; 86850; 86900; 86901; A9270; J0330; J1100; J1170; J1885; J2250; J2270; J2405; J2704; J3010; J7120

== ENCOUNTER 2021-11-01 23:17 | Emergency (ER) | payer OTHER, MEDICAID, SELFPAY ==
--- NOTE | ~2021-11-01 | CT_ITS ---
EXAMINATION: CT abdomen pelvis w con DATE: 11/02/2021 00:43 INDICATION: Intermittent left flank pain for multiple days. Dysuria. TECHNIQUE: Computed tomography (CT) of the abdomen and pelvis was performed with 100 cc Omnipaque 300 intravenous contrast. The dose-length product was 166.28 mGy-cm. Automated exposure control and iterative reconstruction technique were employed. COMPARISON: CT dated 11/03/2020 FINDINGS: The lung bases are unremarkable. Heart size normal. No significant pleural or pericardial e ffusion. No significant vascular abnormality. No lymphadenopathy. The liver, spleen, pancreas, adrenal glands and kidneys are unremarkable. No hydronephrosis. Gallblad dao is contracted. There are small hypodensities of the spleen, likely benign cysts. No acute osseous abnormality. A levocurvature of the lumbar spine. IMPRESSION: 1. No acute abdominal abnormality. Reviewed, dictated and finalized at [facility].
[2021-11-01 23:31] VITALS: BP 123/76; PULSE 79; RESP 18; TEMP 37; O2SAT 99
[2021-11-01 23:45] LABS: Basophils Absolute Auto 0.1 K/mm3 (0.0-0.1); Basophils Percent Auto 0.7 % (0.2-1.2); Eosinophils Absolute Auto 0.2 K/mm3 (0-0.3); Eosinophils Percent Auto 2.2 % (0-4.4); Hematocrit 37.5 % (37.0-47.0); Hemoglobin 12.6 g/dL (12.0-15.0); Immature Granulocyte Absolute 0.02 K/mm3 (0.00-0.031); Immature Granulocyte Percent A 0.2 % (0-0.5); Lymphocytes Absolute Auto 2.08 K/mm3 (0.9-3.2); Lymphocytes Percent Auto 25.3 % (18.3-44.2); Mean Corpuscular HGB Conc 33.6 g/dl (32-36); Mean Corpuscular Hemoglobin 29.4 pg (26-34); Mean Corpuscular Volume 87.4 fl (80-100); Mean Platelet Volume 11.1 fl (7.4-10.4); Monocytes Absolute Auto 0.5 K/mm3 (0.1-0.6); Monocytes Percent Auto 6.6 % (2.6-8.5); Neutrophils Absolute Auto 5.4 K/mm3 (1.3-6.7); Platelet Count Result 239 k/mm3 (150-375); Red Blood Count 4.29 M/mm3 (4.2-5.4); Red Cell Distribution Width 12.7 % (11.5-14.5); White Blood Count 8.2 K/mm3 (4.5-10.0)
[2021-11-01 23:47] LABS: Appearance Urine Slightly Cloudy (Clear); Bilirubin Urine Negative (Negative); Blood Urine Negative (Negative); Color Urine Yellow (Yellow); Glucose Urine UA Negative (Negative); Ketones Urine Negative (Negative); Leukocyte Esterase Ur Negative LEU/UL (Negative); Nitrate Urine Negative (Negative); Protein Urine Negative (Negative); Specific Grav Ur 1.015 (1.001-1.035); Urobilinogen Urine 0.2 mg/dL (<2.0); pH Urine 7.5 (5.0-9.0)
[2021-11-01 23:54] LABS: Alanine Aminotransferase 18 U/L (6-35); Albumin Level 4.8 g/dL (3.5-5.1); Alkaline Phosphatase 62 U/L (38-126); Anion Gap 7 mmol/L (8-16); Aspartate Amino Transferase 22 U/L (14-36); Bilirubin,Total 0.3 mg/dL (0.2-1.3); Blood Urea Nitrogen 12 mg/dL (7-17); Calcium 8.8 mg/dL (8.4-10.2); Carbon Dioxide 27 mmol/L (22-30); Chloride 104 mmol/L (98-107); Estimated CRCL calculation 78 ml/min; Estimated Glomerular Filt Rate > 60; Glucose 87 mg/dL (65-110); Lipase 123 U/L (23-300); Potassium 3.6 mmol/L (3.4-5.0); Sodium 138 mmol/L (137-145)
[2021-11-01 23:57] LABS: Amorphous Sediment Urine Few; RBC Urine 0-2 /hpf (0-2); Squamous Epithelial Cell Urine Rare /hpf (Few)
[2021-11-01] MEDS: SODIUM CHLORIDE 0.9% IV 1,000 ML 999 ML IV CONT (23:58)
[2021-11-01] MEDS: KETOROLAC 30 MG/ML VIAL (*BKC) IV PUSH (23:59)
[2021-11-02 00:03] LABS: Add Urine Microscopic? YES
--- NOTE | 2021-11-02 01:20 | ED.GENADULT ---
HPI - General Adult General Chief complaint: Abdominal Pain Stated complaint: flank pain Time Seen by Provider: 11/01/21 23:30 Source: RN notes reviewed History of Present Illness HPI narrative: Patient presents emergency department from home for left flank pain. Patient states symptoms began 2 days ago. Notes pain in the left flank that radiates down into her left leg. Pain is described as sharp and stabbing worse with movement. Patient also notes painful urination with the symptoms she denies any fevers or chills chest pain shortness of breath abdominal pain nausea vomiting diarrhea or any other symptoms. Patient does note occasional tingling down the leg but denies any weakness of the leg denies any bowel or bladder incontinence Related Data Home Medications Medication Instructions Recorded Confirmed bupropion HCl 150 mg 24 hr tablet, 150 mg PO DAILY 05/22/21 06/21/21 extended release lamotrigine 100 mg tablet 150 mg PO DAILY 05/22/21 06/21/21 olanzapine 10 mg tablet 5 mg PO DAILY PRN Anxiety 05/22/21 06/21/21 dextroamphetamine-amphetamine ER 10 mg PO DAILY 06/18/21 06/21/21 10 mg 24hr capsule,extend release (Adderall XR) Allergies Allergy/AdvReac Type Severity Reaction Status Date / Time tree nut Allergy Severe Anaphylaxis Verified 06/21/21 10:07 cefdinir [From Omnicef] Allergy Hives Verified 06/21/21 10:07 Review of Systems Review of Systems: Gen.: Denies fevers or chills ENT: Denies congestion Respiratory: Denies shortness of breath or cough CV: Denies chest pain or palpitations GI: Denies abdominal pain nausea, emesis or diarrhea reports left flank pain reports dysuria Musculoskeletal: Reports left-sided back pain Neuro: Denies numbness, tingling, weakness or focal weakness Skin: Denies rash Except as documented, all other systems reviewed and negative PMFSH Past Medical History Medical History Anxiety Surgical History Surgical History No pertinent past surgical history Family History Family History Mother No pertinent past medical history Social History Social History Smoking status: Current every day smoker Tobacco type: e-cigarettes/vaping Alcohol intake: current Alcohol use details: Occasional Substance use type: marijuana Gender identity (if verbalized by the patient): Female Spiritual care concerns: No Exam Narrative: APPEARANCE: No acute distress, nontoxic, resting in bed EYES: EOMI HEENT: Normocephalic, atraumatic, OMM RESPIRATORY: No respiratory distress Clear to auscultation bilaterally with no rhonchi wheezing or rales. CARDIOVASCULAR: Regular rate and rhythm without murmurs rubs or gallops. Bilateral dorsalis pedis pulse 2+ ABDOMINAL: Soft, nontender, nondistended, no rebound or guarding or flank tenderness : Normal external exam, no skin lesions seen, no vaginal bleeding or discharge cervix is closed no adnexal tenderness no cervical motion tenderness MUSCULOSKELETAl: Moves all extremities. No clubbing, cyanosis or edema. Back: No midline thoracic lumbar tenderness palpation tender palpation over left paravertebral muscles L2-5 pain worse with forward flexion and rotation of the torso to the left NEURO: Awake and alert. Following commands, speech normal, no focal deficits muscle strength 5 out of 5 bilateral upper and lower extremities SKIN:: Warm, dry. No rashes lesions or abrasions PSYCHIATRIC: Normal affect/mood, Course Course Emergency Course: Patient will get up and ambulate in the emergency department with no difficulty States pain is improved at this time discussed with patient results of workup and diagnosis. Discussed need for follow-up with primary care, proper use of medication, and reasons to return to the emergency department
[2021-11-02 01:46] VITALS: BP 116/73; PULSE 89; RESP 16; O2SAT 100
[2021-11-02] MEDS: NITROFURANTOIN MONOHYD MACROCR 100 MG CAP PO (02:42)
[2021-11-02 02:46] VITALS: BP 118/65; PULSE 76; RESP 18; O2SAT 99
== END 2021-11-02 02:48 | disposition home or self-care (01) ==
PROVIDERS: Emergency Provider Emergency Medicine; PCP Physician Assistant
DX: M54.50 Low back pain, unspecified (principal); R30.0 Dysuria; F41.9 Anxiety disorder, unspecified; F17.290 Nicotine dependence, other tobacco product, uncomplicated
CPT/HCPCS: 36415; 74177; 80053; 81001; 81025; 83690; 85025; 96361; 96374; 99284; A9270; J1885; J7030; Q9967

== ENCOUNTER 2021-12-13 22:40 | Emergency (ER) | payer OTHER, MEDICAID, SELFPAY ==
--- NOTE | ~2021-12-13 | CT_ITS ---
EXAMINATION: CT abdomen pelvis wo con DATE: 12/14/2021 00:11 INDICATION: Right flank pain. Nausea. Constipation. TECHNIQUE: Computed tomography (CT) of the abdomen and pelvis was performed without intravenous contr ast. Automated exposure control and iterative reconstruction technique were employed. The dose-length product was 180.80 mGy-cm. COMPARISON: CT abdomen and pelvis 11/02/2021 FINDINGS: The visualized portions of the lung bases are clear without pneumonia or pleural effusion. The heart size is normal. No pericardial effusion. The liver, gallbladder, spleen, pancreas, adrenal glands, and kidneys are normal. There is no urolithiasis. There are no dilated loops of bowel. The ap pendix is normal. There are no pathologically enlarged lymph nodes. There is physiologic fluid in the pelvis. The bones are unremarkable. IMPRESSION: 1. No etiology for the patient's symptoms. Reviewed, dictated and finalized at location A.
[2021-12-13 22:44] VITALS: BP 120/84; PULSE 97; RESP 20; TEMP 37; O2SAT 98
[2021-12-13] MEDS: SODIUM CHLORIDE 0.9% IV 1,000 ML 999 ML IV CONT (23:19)
[2021-12-13] MEDS: ONDANSETRON INJ 4 MG/2 ML VIAL IV PUSH (23:20)
[2021-12-13] MEDS: MORPHINE SULFATE (*CRX) 4 MG/ML INJ IV PUSH (23:21)
[2021-12-13 23:28] LABS: Appearance Urine Clear (Clear); Basophils Absolute Auto 0.1 K/mm3 (0.0-0.1); Basophils Percent Auto 0.8 % (0.2-1.2); Bilirubin Urine Negative (Negative); Blood Urine Negative (Negative); Color Urine Yellow (Yellow); Eosinophils Absolute Auto 0.2 K/mm3 (0-0.3); Eosinophils Percent Auto 2.2 % (0-4.4); Glucose Urine UA Negative (Negative); Hemoglobin 13.2 g/dL (12.0-15.0); Immature Granulocyte Absolute 0.02 K/mm3 (0.00-0.031); Immature Granulocyte Percent A 0.2 % (0-0.5); Ketones Urine Negative (Negative); Leukocyte Esterase Ur Negative LEU/UL (Negative); Lymphocytes Absolute Auto 2.27 K/mm3 (0.9-3.2); Lymphocytes Percent Auto 24.5 % (18.3-44.2); Mean Corpuscular HGB Conc 33.8 g/dl (32-36); Mean Corpuscular Hemoglobin 29.2 pg (26-34); Mean Corpuscular Volume 86.3 fl (80-100); Mean Platelet Volume 10.7 fl (7.4-10.4); Monocytes Absolute Auto 0.5 K/mm3 (0.1-0.6); Monocytes Percent Auto 5.8 % (2.6-8.5); Neutrophils Absolute Auto 6.2 K/mm3 (1.3-6.7); Neutrophils Percent Auto 66.5 % (45.5-73.1); Nitrate Urine Negative (Negative); Platelet Count Result 244 k/mm3 (150-375); Protein Urine 1+ mg/dL (Negative); Red Blood Count 4.52 M/mm3 (4.2-5.4); Red Cell Distribution Width 12.2 % (11.5-14.5); Specific Grav Ur 1.015 (1.001-1.035); Urobilinogen Urine 0.2 mg/dL (<2.0); White Blood Count 9.3 K/mm3 (4.5-10.0)
--- NOTE | 2021-12-13 23:33 | ED.ABDPAIN ---
HPI - Abdominal Pain General Chief Complaint: Abdominal Pain Stated Complaint: abdominal pain and back pain Time Seen by Provider: 12/13/21 22:56 Source: RN notes reviewed History of Present Illness HPI narrative: Patient presents emergency department from home for abdominal pain. Patient states she has an ongoing history of of lower abdominal pain and flank pain secondary to endometriosis for which she is followed by Dr. Cheryl Restrepo. She states that she has had surgery for this before in the past and is scheduled to have surgery this coming Thursday states the pain became more severe today with diffuse pain throughout the bilateral lower abdomen going to the bilateral lower back patient also states she has been followed by nephrology for protein in her urine. She denies any fevers or chills chest pain shortness of breath does states she has been having nausea and vomiting patient states that she does take hydrocodone at home for the pain. Patient states that the pain was flared up approximately a week and a half ago when she was evaluated by Dr. Cheryl Restrepo in the office and had a pelvic exam at that time she states she been having increasing pain and just had a ultrasound in his office 2 days ago and since that time has had increased pain states ultrasound was normal Related Data Home Medications Medication Instructions Recorded Confirmed bupropion HCl 150 mg 24 hr tablet, 150 mg PO DAILY 05/22/21 06/21/21 extended release lamotrigine 100 mg tablet 150 mg PO DAILY 05/22/21 06/21/21 olanzapine 10 mg tablet 5 mg PO DAILY PRN Anxiety 05/22/21 06/21/21 dextroamphetamine-amphetamine ER 10 mg PO DAILY 06/18/21 06/21/21 10 mg 24hr capsule,extend release (Adderall XR) Allergies Allergy/AdvReac Type Severity Reaction Status Date / Time tree nut Allergy Severe Anaphylaxis Verified 12/13/21 23:13 cefdinir [From Omnicef] Allergy Hives Verified 12/13/21 23:13 Review of Systems Review of Systems: Gen.: Denies fevers or chills ENT: Denies congestion Respiratory: Denies shortness of breath or cough CV: Denies chest pain or palpitations GI: See HPI denies burning, urgency, frequency or hematuria Musculoskeletal: Denies back pain or muscle pain Neuro: Denies numbness, tingling, weakness or focal weakness Skin: Denies rash Except as documented, all other systems reviewed and negative PMFSH Past Medical History Medical History Anxiety Surgical History Surgical History No pertinent past surgical history Family History Family History Mother No pertinent past medical history Social History Social History Smoking status: Current every day smoker Tobacco type: e-cigarettes/vaping Alcohol intake: current Alcohol use details: Occasional Substance use type: marijuana Gender identity (if verbalized by the patient): Female Spiritual care concerns: No Exam Narrative: APPEARANCE: No acute distress, nontoxic, resting in bed HEENT: Normocephalic, atraumatic, OMM RESPIRATORY: No respiratory distress, clear to auscultation bilaterally with no rhonchi wheezing or rales CARDIOVASCULAR: RRR s murmur ABDOMINAL: Soft nondistended diffusely tender palpation no rebound or guarding MUSCULOSKELETAl: Moves all extremities. No clubbing, cyanosis or edema. NEURO: Awake and alert. Following commands, speech normal, no focal deficits SKIN:: Warm, dry. Normal Color PSYCHIATRIC: Normal affect/mood Course Course Emergency Course: Discussed with Dr. Cheryl Restrepo patient is well-known to himself states she is scheduled for surgery this Thursday patient had an ultrasound in the office showing possible varicose vein by the uterus otherwise normal ultrasound history of endometriosis Patient states that they are feeling be
[2021-12-13 23:37] LABS: Add Urine Microscopic? YES; Bacteria Urine Trace /hpf; Mucus Urine Rare /lpf; RBC Urine 0-2 /hpf (0-2); Squamous Epithelial Cell Urine Rare /hpf (Few); WBC Urine 0-3 /hpf
[2021-12-13 23:39] LABS: Alanine Aminotransferase 14 U/L (6-35); Albumin Level 4.9 g/dL (3.5-5.1); Alkaline Phosphatase 69 U/L (38-126); Anion Gap 12 mmol/L (8-16); Aspartate Amino Transferase 25 U/L (14-36); Bilirubin,Total 0.5 mg/dL (0.2-1.3); Blood Urea Nitrogen 12 mg/dL (7-17); Calcium 9.2 mg/dL (8.4-10.2); Carbon Dioxide 25 mmol/L (22-30); Chloride 101 mmol/L (98-107); Estimated CRCL calculation 90 ml/min; Estimated Glomerular Filt Rate > 60; Glucose 96 mg/dL (65-110); Lipase 77 U/L (23-300); Potassium 3.5 mmol/L (3.4-5.0); Sodium 138 mmol/L (137-145)
[2021-12-14] VITALS (12 sets, daily range): BP systolic 112–132; BP diastolic 66–90; PULSE 74–98; RESP 16–18; O2SAT 93–100
[2021-12-14] MEDS: KETOROLAC 30 MG/ML VIAL (*BKC) IV PUSH (00:42)
[2021-12-14] MEDS: HYDROmorphone HCL INJ (*CRX) 1 MG/ML SYR 0.5 MG IV PUSH (01:45)
== END 2021-12-14 02:22 | disposition home or self-care (01) ==
PROVIDERS: Emergency Provider Emergency Medicine
DX: R10.30 Lower abdominal pain, unspecified (principal); N80.9 Endometriosis, unspecified; F41.9 Anxiety disorder, unspecified; F17.290 Nicotine dependence, other tobacco product, uncomplicated
CPT/HCPCS: 36415; 74176; 80053; 81001; 81025; 83690; 85025; 96361; 96374; 96375; 99284; J1170; J1885; J2270; J2405; J7030

== ENCOUNTER → 2021-12-16 14:36 | Outpatient (CLI) | payer OTHER, MEDICAID, SELFPAY ==
--- NOTE | ~2021-12-16 | US_ITS ---
EXAMINATION: US renal BI DATE: 12/16/2021 14:59 INDICATION: Proteinuria. Right flank pain. TECHNIQUE: Multiple ultrasound grayscale images of the kidneys were obtained. COMPARISON: CT abdomen and pelvis dated 12/13/2021 FINDINGS: The right kidney measures 11.7 x 4.5 x 6.3 cm. The left kidney measures 11.5 x 5.9 x 6.0 cm. The kidn eys demonstrate normal echogenicity. There is no hydronephrosis in either kidney. No stones identifi ed. The bladder is normal. Incidentally noted are couple approximately 1 cm diameter anechoic cysts a long the posterior margin of the spleen. IMPRESSION: 1. Normal kidneys without hydronephrosis. Reviewed, dictated and finalized at location A.
== END ==
PROVIDERS: PCP Internal Medicine Nephrology; Visit Provider Internal Medicine Nephrology
DX: R80.8 Other proteinuria (principal)
CPT/HCPCS: 76775

== ENCOUNTER 2021-12-16 15:00 | Outpatient (CLI) | payer OTHER, MEDICAID, SELFPAY | END 2021-12-16 15:01 | disposition home or self-care (01) | LOC: ANHSURGERY 15:12 | PROVIDERS: Referring Provider Internal Medicine Nephrology; Visit Provider Obstetrics & Gynecology | DX: Z01.818 Encounter for other preprocedural examination (principal) | CPT/HCPCS: 36415; 86850; 86900; 86901 ==

== ENCOUNTER 2021-12-20 00:56 | Day surgery (SDC) | payer OTHER, MEDICAID, SELFPAY ==
[2021-12-16 14:20] VITALS: BMI 19.2
--- NOTE | 2021-12-16 14:22 | PC.NURSE ---
Report to the Outpatient Waiting Room, entrance under the green pavilion located off [facility], at time _0730_ on date _12/20/21_. OR Time: _09_. - You and your visitor will be asked to self-screen and do not enter if you have any COVID symptoms. - Only one visitor and NO children visitors are allowed at this time. - The patient visitor is requested to leave or wait in car when not with patient due to restrictions. - A mask is required within the hospital. Patients may have clear liquids (water, carbonated beverages, clear teas, apple juice) until 3 hours prior to surgery with a maximum of 20 ounces. - No food from midnight until time of surgery - Infants may have breast milk until 4 hours before surgery, formula 6 hours prior to surgery. - Children will be allowed to drink immediately following surgery. If applicable, please bring a bottle or sippy cup to assist with drinking. Juice, water, soda, and popsicles are readily available. For infants on formula, please bring formula the day of surgery. Pacifiers are allowed. Take the following medications with a SIP of water the morning of surgery: __alprazolam 0.5 mg _ Medications to discontinue per physician ___vitamins or supplements 3 days prior___ Date to take last dose Please no make-up, nail greek, hairspray, perfume, deodorant, or body powder the day of surgery. No jewelry (including any body piercings) or valuables the day of surgery, leave them at home. Please take a shower or bath the night before, or the morning of, surgery with an antibacterial soap. Wear comfortable, loose fitting clothing. Children are encouraged to wear pajamas. - Jewelry must be removed prior to entering the operating room. Rings and piercings that are not removed may be cut off. - The hospital will not accept responsibility for valuables. - Please leave all valuables, including medications, at home the day of surgery. If you are going home after surgery, a licensed local flatbed driver must drive you home. - NO public transportation without another adult. - We recommend that an adult stay with you for 24 hours following discharge. - We also recommend that you do not drive, make important decision, drink alcoholic beverages, or take any drugs that were not prescribed by your health care provider for at least 24 hours after your discharge time. For Pediatric surgeries, we recommend two adults accompany the child home (only one inside the building at this time). Follow any additional instructions given to you from your surgeon. If you or anyone in your household have experienced Covid symptoms in the past week, please notify your surgeon or the nurse liaison at the phone number below for possible testing. Telephone instructions given to _patient__and asked if any additional questions and then verbalized understanding. Patient advised to call surgeon office or pre surgery nurse liaison [phone] if any additional questions.
--- NOTE | 2021-12-16 18:13 | P.HP_ITS ---
H&P: HPI History of Present Illness Date/Time: 12/16/21 18:13 Chief Complaint: Pelvic pain Narrative: Cyst at 21-year-old female history endometriosis admitted for diagnostic laparoscopy and suspected recurrence of endometriosis she has had 2 ER visits negative imaging. Her pain is unrelenting. Risks and benefits of the procedure reviewed in full. She did receive the ACOG handout entitled laparoscopy PMFSH Past Medical History Medical History Anxiety Surgical History Surgical History No pertinent past surgical history Family History Family History Mother No pertinent past medical history Social History Social History Smoking status: Current every day smoker Tobacco type: e-cigarettes/vaping Alcohol intake: current Alcohol use details: socially Substance use: never Substance use type: does not use Additional living arrangements comments: lives with mother Gender identity (if verbalized by the patient): Female Spiritual care concerns: No Meds Home Medications and Allergies Home Medications Medication Instructions Recorded Confirmed Type lamotrigine 100 mg tablet 150 mg PO DAILY 05/22/21 12/16/21 History hydrocodone 5 mg-acetaminophen 325 1 tablet PO Q4H PRN pain #20 tabs 06/21/21 12/16/21 Rx mg tablet ibuprofen 600 mg tablet 600 mg PO TID PRN pain #14 tabs 11/02/21 12/16/21 Rx alprazolam 0.25 mg tablet 0.5 mg PO DAILY PRN Anxiety 12/16/21 12/16/21 History Allergies Allergy/AdvReac Type Severity Reaction Status Date / Time tree nut Allergy Severe Anaphylaxis Verified 12/16/21 14:08 cefdinir [From Omnicef] Allergy Hives Verified 12/16/21 14:08 escitalopram [From Lexapro] AdvReac Itching Verified 12/16/21 14:09 Exam Const: General: cooperative and healthy appearing Nutritional Appearance: average body habitus Orientation/consciousness: oriented to person, oriented to place and oriented to time Limitations: no limitations Resp: Effort & Inspection: normal respiratory effort Cardio: Rate: regular rate Rhythm: regular rhythm GI: Inspection: normal to inspection : External Female Exam: normal external appearance Speculum Exam - Vagina: normal appearance of the vagina Speculum Exam - Cervix: normal appear ance of the cervix and Cervical tenderness present Bimanual exam- vagina & uterus: Uterine tenderness Bimanual Exam- Adnexa, other: tender Assessment and Plan Assessment and plan (1) Pelvic pain: Code(s): R10.2 - Pelvic and perineal pain Status: Acute Plan Laparoscopy
--- NOTE | 2021-12-19 11:37 | P.PNAN_ITS ---
Anes - Initial Pre Proc Eval Procedure: Operation Date: 12/20/21 09:30 Proposed Procedures p Diagnostic Laparoscopy - Philip Restrepo MD Date/Time: 12/19/21 11:37 Surgeon: Philip Restrepo MD Pre Op Diagnosis: Pelvic Pain Patient Data Age: 21 Gender: F Height: 1.63 m Weight: 50.8 kg Allergies Allergy/AdvReac Type Severity Reaction Status Date / Time tree nut Allergy Severe Anaphylaxis Verified 12/20/21 08:15 cefdinir [From Omnicef] Allergy Hives Verified 12/20/21 08:15 escitalopram [From Lexapro] AdvReac Itching Verified 12/20/21 08:15 Home Medications Medication Instructions Recorded Confirmed Type lamotrigine 100 mg tablet 150 mg PO DAILY 05/22/21 12/16/21 History hydrocodone 5 mg-acetaminophen 325 1 tablet PO Q4H PRN pain #20 tabs 06/21/21 12/16/21 Rx mg tablet ibuprofen 600 mg tablet 600 mg PO TID PRN pain #14 tabs 11/02/21 12/16/21 Rx alprazolam 0.25 mg tablet 0.5 mg PO DAILY PRN Anxiety 12/16/21 12/16/21 History hydrocodone 5 mg-acetaminophen 325 1 tablet PO Q4H PRN pain #30 tabs 12/20/21 Rx mg tablet Patient hx anesthesia problems: none Family hx anesthesia problems: none Results Review: All pre-operative results and documents have been reviewed as part of the pre- operative evaluation. [facility] Past Medical History Medical History Anxiety Asthma Depression Endometriosis History of suicide attempt Surgical History Surgical History No pertinent past surgical history Family History Family History Mother No pertinent past medical history Social History Social History Smoking status: Current every day smoker Tobacco type: e-cigarettes/vaping Alcohol intake: current Alcohol use details: socially Substance use: never Substance use type: does not use Living arrangements: with family Additional living arrangements comments: lives with mother Gender identity (if verbalized by the patient): Female Spiritual care concerns: No Anes - Eval Final PreProcedure Day of Procedure 12/19/21 11:37 Patient weight: normal Heart: regular rate and rhythm Lungs: clear to auscultation Airway: Mallampati scale class II Neurological: alert and oriented Last oral intake: >/= 8 hours ASA classification: II Emergent: no Anesthetic plan: proceed Anesthesia type and monitoring: general ETT and standard monitoring Results Review: All pre-operative results and documents have been reviewed as part of the pre- operative evaluation. Informed Consent: The patient's anesthetic plan and its attendant risks and benefits were discussed with the patient/family/POA. Questions were solicited and answers provided to the satisfaction of the patient/family/POA.
[2021-12-20] VITALS (11 sets, daily range): BP systolic 91–122; BP diastolic 63–81; PULSE 50–95; RESP 12–18; TEMP 36.1–36.7; O2SAT 96–100
--- NOTE | 2021-12-20 04:34 | PM.IMHP ---
H&P: HPI History of Present Illness Date/Time: 12/20/21 04:34 Chief Complaint: Pelvic pain Narrative: 21-year-old female with known endometriosis admitted for laparoscopy secondary to severe pelvic pain. Risks and benefits reviewed including but not exclusive of , aspiration pneumonia, bleeding, transfusion, perforation injury to bowel, bladder, ureters, or other internal organs with need for open laparotomy. She received the ACOG handout entitled laparoscopy. She had all questions answered and asked to proceed PMFSH Past Medical History Medical History Anxiety Asthma Depression Endometriosis History of suicide attempt Surgical History Surgical History No pertinent past surgical history Family History Family History Mother No pertinent past medical history Social History Social History Smoking status: Current every day smoker Tobacco type: e-cigarettes/vaping Alcohol intake: current Alcohol use details: socially Substance use: never Substance use type: does not use Living arrangements: with family Additional living arrangements comments: lives with mother Gender identity (if verbalized by the patient): Female Spiritual care concerns: No Meds Home Medications and Allergies Home Medications Medication Instructions Recorded Confirmed Type lamotrigine 100 mg tablet 150 mg PO DAILY 05/22/21 12/16/21 History hydrocodone 5 mg-acetaminophen 325 1 tablet PO Q4H PRN pain #20 tabs 06/21/21 12/16/21 Rx mg tablet ibuprofen 600 mg tablet 600 mg PO TID PRN pain #14 tabs 11/02/21 12/16/21 Rx alprazolam 0.25 mg tablet 0.5 mg PO DAILY PRN Anxiety 12/16/21 12/16/21 History Allergies Allergy/AdvReac Type Severity Reaction Status Date / Time tree nut Allergy Severe Anaphylaxis Verified 12/16/21 14:08 cefdinir [From Omnicef] Allergy Hives Verified 12/16/21 14:08 escitalopram [From Lexapro] AdvReac Itching Verified 12/16/21 14:09 Exam Const: General: cooperative, healthy appearing and comfortable Nutritional Appearance: average body habitus Orientation/consciousness: oriented to person, oriented to place and oriented to time Limitations: no limitations Chest: Chest palpation & inspection: normal inspection of the chest Resp: Effort & Inspection: normal respiratory effort Cardio: Rate: regular rate Rhythm: regular rhythm Heart sounds: S1 normal heart sound present and S2 normal heart sound present GI: Inspection: normal to inspection GI Palp: Yes abdominal tenderness : External Female Exam: normal external appearance Speculum Exam - Vagina: normal appearance of the vagina Speculum Exam - Cervix: normal appearance of the cervix and Cervical tenderness present Bimanual exam- vagina & uterus: Uterine tenderness Bimanual Exam- Adnexa, other: tender bilaterally Assessment and Plan Assessment and plan (1) Pelvic pain: Code(s): R10.2 - Pelvic and perineal pain Status: Acute Plan diagnostic laparoscopy
--- NOTE | 2021-12-20 04:37 | WPDHPUPDATE1 ---
History and Physical Update Update Date/Time: 12/20/21 04:37 History and Physical has been reviewed, including an updated exam of the patient. There are NO changes in the patient's condition. Risks, benefits, and alternatives have been discussed and questions answered. Patient agrees to proceed with procedure.
[2021-12-20] MEDS: LACTATED RINGERS 1,000 ML 30 ML IV CONT ×2 (08:00→10:26)
[2021-12-20] MEDS: KETOROLAC 15 MG/ML VIAL (*BKC) IV PUSH (08:06)
[2021-12-20] MEDS: ACETAMINOPHEN 500 MG TABLET 1000 MG PO (08:06)
--- NOTE | 2021-12-20 09:57 | W.PM.PROC2 ---
Procedure Note - Detailed Date of Procedure 12/20/21 Pre-op Diagnosis Pelvic Pain Post-op Diagnosis Other (Right ovarian cyst/endometriosis) Procedure Performed Laparoscopic destruction of endometriosis and destruction of right ovarian cyst Surgeon Philip Restrepo MD Anesthesia General Indications Sh 21-year-old female with severe pelvic pain Findings Simple right ovarian cyst. Endometrial blistered implants along the right uterosacral ligament. Description of Procedure The patient is prepped draped in the normal sterile fashion placed in the dorsal lithotomy position. Under excellent general trach anesthesia weighted speculum placed in posterior fornix vagina. Anterior lip of the cervix grasped with single-tooth tenaculum. The Knapp's cannula inserted to the cervix and attached to the single-tooth to be used for uterine manipulation. The bladder was emptied of clear urine in the weighted speculum was removed. Gloves were changed An infraumbilical incision made the Veress needle passed in the abdomen. Abdomen filled with CO2 gas [id number]. The 5mm trocar advanced under direct visualization assuring injury. The patient placed in Trendelenburg and a suprapubic incision made. The 5mm trocar advanced under direct visualization assuring no injury about 5cc of serosanguineous fluid was seen in the cul-de-sac this was suction and irrigated. Small blistered areas of endometriosis seen along the right uterosacral ligament. This was point cauterized with monopolar cautery at 35 w per 2nd. A moderate-sized simple ovarian cyst was seen on the right and this was opened in linear fashion and drained of clear fluid. Irrigation then was undertaken the remainder the pelvis was within normal limits and photo documentation was undertaken. The lower site removed. The gas removed from the abdomen. The upper site removed incisions closed with 4 Monocryl glue. Patient went recovery in satisfactory condition. All sponge, needle, instrument counts were correct. There were no immediate complications Estimated Blood Loss 5 Drains No Packing No Pathology None sent Complications No immediate complications Condition Stable Disposition PACU
[2021-12-20] MEDS: fentaNYL CITRATE INJ (*CRX) 100 MCG/2 ML VIAL 25 MCG IV PUSH ×8 (10:16→11:02)
[2021-12-20] MEDS: oxyCODONE HCL (*CRX) 5 MG TAB IR PO (11:13)
[2021-12-20] MEDS: HYDROmorphone HCL INJ (*CRX) 1 MG/ML SYR 0.5 MG IV PUSH ×2 (11:47→12:23)
== END 2021-12-20 12:47 | disposition home or self-care (01) ==
PROVIDERS: Visit Provider Obstetrics & Gynecology
PROC: (CPT 49320; principal; 2021-12-20 09:30)
DX: R10.2 Pelvic and perineal pain (principal); N83.201 Unspecified ovarian cyst, right side; N80.3 Endometriosis of pelvic peritoneum; F17.290 Nicotine dependence, other tobacco product, uncomplicated
CPT/HCPCS: 58662; 36415; 86850; 86900; 86901; A9270; J1100; J1170; J1885; J2250; J2405; J2704; J2710; J3010; J7120

== ENCOUNTER 2021-12-24 21:33 | Emergency (ER) | payer OTHER, MEDICAID, SELFPAY ==
[2021-12-24 21:38] VITALS: BP 106/68; PULSE 97; RESP 16; TEMP 36.8; O2SAT 99
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
--- NOTE | 2021-12-25 01:29 | PC.NURSE ---
pt left ama signed formed and understands risks associated with leaving prior to completed treatment and assessment
== END 2021-12-25 01:16 | disposition left against medical advice (07) ==
PROVIDERS: Emergency Provider Emergency Medicine
DX: R10.84 Generalized abdominal pain (principal); Z98.890 Other specified postprocedural states; F41.9 Anxiety disorder, unspecified; J45.909 Unspecified asthma, uncomplicated; F32.A Depression, unspecified; N80.9 Endometriosis, unspecified; F17.290 Nicotine dependence, other tobacco product, uncomplicated
CPT/HCPCS: 99281

== ENCOUNTER 2022-05-27 09:21 | Outpatient (CLI) | payer OTHER, SELFPAY | END 2022-05-27 09:22 | disposition home or self-care (01) | PROVIDERS: Visit Provider Obstetrics & Gynecology | DX: R10.2 Pelvic and perineal pain (principal); Z01.818 Encounter for other preprocedural examination | CPT/HCPCS: 36415; 86850; 86900; 86901 ==

== ENCOUNTER 2022-05-30 02:04 | Day surgery (SDC) | payer OTHER, SELFPAY ==
[2022-05-21 10:05] VITALS: BMI 19.3
--- NOTE | 2022-05-21 10:14 | PC.NURSE ---
Report to the Outpatient Waiting Room, entrance under the green pavilion located off [facility], at time 1:30 on date 05/30/22. Planned Procedure Time: 3:30. Time changes happen often and if your time is changed the preop area will call you the afternoon before. - You and your visitor will be asked to self-screen and do not enter if you have any COVID symptoms. - Only one visitor is requested with a max of two and NO children visitors are allowed at this time. - The patient visitor may be requested to leave or wait in car when not with patient due to distancing restrictions. - A mask is optional within the hospital at this time. Patients may have clear liquids (water, carbonated beverages, clear teas, apple juice) until 3 hours prior to surgery (12:30) with a maximum of 20 ounces. - No food from midnight until time of surgery Take the following medications with a SIP of water the morning of surgery: ALPRAZOLAM DO NOT STOP ANY OF YOUR OTHER PRESCRIPTION MEDICATIONS PRIOR TO SURGERY?EXCEPT THE FOLLOWING Medications to discontinue per physician: N/A Date to take last dose: N/A Please no make-up, nail italian, hairspray, perfume, deodorant, or body powder the day of surgery. No jewelry (including any body piercings) or valuables the day of surgery, leave them at home. Please take a shower or bath the night before, or the morning of, surgery with an antibacterial soap. Wear comfortable, loose fitting clothing. - Jewelry must be removed prior to entering the operating room. Rings and piercings that are not removed may be cut off. - The hospital will not accept responsibility for valuables. - Please leave all valuables, including medications, at home the day of surgery. If you are going home after surgery, a licensed cdl a driver must drive you home. - NO public transportation without another adult if you receive anesthesia. - We recommend that an adult stay with you for 24 hours following discharge. - We also recommend that you do not drive, make important decision, drink alcoholic beverages, or take any drugs that were not prescribed by your health care provider for at least 24 hours after your discharge time. Follow any additional instructions given to you from your surgeon. If you or anyone in your household have experienced Covid symptoms in the past week, please notify your surgeon or the nurse liaison at the phone number below for possible testing. Telephone instructions given to PT - HARVEY MACHADO and asked if any additional questions and then verbalized understanding. Patient advised to call surgeon office or pre surgery nurse liaison [phone] if any additional questions.
--- NOTE | 2022-05-27 11:45 | PM.IMHP ---
H&P: HPI History of Present Illness Date/Time: 05/27/22 11:45 Chief Complaint: Pelvic pain and dyspareunia Narrative: This is a 22-year-old female with severe pelvic pain and dyspareunia. She has a history of endometriosis. She had taken oral is a which initially helped and now she continues to have pelvic discomfort. She has had colonoscopy negative STD testing, and pelvic floor training and continues to have the severe pain. Risks and benefits reviewed including but not exclusive of , aspiration pneumonia, bleeding, transfusion, perforation injury to bowel, bladder, ureters or other internal organs with need for laparotomy. She received the [employer] handout entitled laparoscopy. She had all questions answered. She asked to proceed PMFSH Past Medical History Medical History Anxiety Asthma Depression Endometriosis History of suicide attempt Surgical History Surgical History No pertinent past surgical history Family History Family History Mother No pertinent past medical history Social History Social History Smoking status: Current some day smoker Tobacco type: e-cigarettes/vaping Alcohol intake: current Alcohol use details: 1-2/MONTH Substance use: current Substance use type: marijuana Living arrangements: with family Additional living arrangements comments: MOM Gender identity (if verbalized by the patient): Female Spiritual care concerns: No Meds Home Medications and Allergies Home Medications Medication Instructions Recorded Confirmed Type lamotrigine 100 mg tablet 150 mg PO HS 05/22/21 05/21/22 History alprazolam 0.25 mg tablet 0.5 mg PO DAILY PRN Anxiety 12/16/21 05/21/22 History aripiprazole 5 mg tablet (Abilify) 5 mg PO HS 05/21/22 05/21/22 History Allergies Allergy/AdvReac Type Severity Reaction Status Date / Time tree nut Allergy Severe Anaphylaxis Verified 05/21/22 10:02 cefdinir [From Omnicef] Allergy Hives Verified 05/21/22 10:02 elagolix [From Orilissa] AdvReac Migraine Verified 05/21/22 10:03 escitalopram [From Lexapro] AdvReac Itching Verified 05/21/22 10:02 Exam Const: General: cooperative, healthy appearing, comfortable and well groomed Nutritional Appearance: average body habitus Orientation/consciousness: oriented to person, oriented to place and oriented to time HENMT: Head: normal to inspection Neck: Neck: normal visual inspection Chest: Chest palpation & inspection: normal inspection of the chest Resp: Effort & Inspection: normal respiratory effort Cardio: Rate: regular rate Rhythm: regular rhythm Heart sounds: S1 normal heart sound present and S2 normal heart sound present GI: Inspection: normal to inspection : External Female Exam: normal external appearance Speculum Exam - Vagina: normal appearance of the vagina Speculum Exam - Cervix: Cervical os closed Bimanual exam- vagina & uterus: Uterine tenderness Bimanual Exam- Adnexa, other: tender bilaterally Assessment and Plan Assessment and plan (1) Pelvic pain: Code(s): R10.2 - Pelvic and perineal pain Status: Acute Plan Diagnostic laparoscopy
[2022-05-30] VITALS (8 sets, daily range): BP systolic 93–121; BP diastolic 48–82; PULSE 49–90; RESP 10–18; TEMP 36.1; O2SAT 100
--- NOTE | 2022-05-30 06:42 | WPDHPUPDATE1 ---
History and Physical Update Update Date/Time: 05/30/22 06:42 History and Physical has been reviewed, including an updated exam of the patient. There are NO changes in the patient's condition. Risks, benefits, and alternatives have been discussed and questions answered. Patient agrees to proceed with procedure.
[2022-05-30] MEDS: ACETAMINOPHEN 500 MG TABLET 1000 MG PO (13:38)
[2022-05-30] MEDS: LACTATED RINGERS 1,000 ML 30 ML IV CONT ×2 (13:55→16:30)
[2022-05-30] MEDS: KETOROLAC 15 MG/ML VIAL (*BKC) IV PUSH (13:57)
--- NOTE | 2022-05-30 15:09 | WPDANESEPPF ---
Anes - Initial Pre Proc Eval Procedure: Operation Date: 05/30/22 15:30 Proposed Procedures p Laparoscopy with Possible Cautery of Endometriosis - Philip Restrepo MD Date/Time: 05/30/22 15:09 Surgeon: Philip Restrepo MD Pre Op Diagnosis: Pain, Hx of Endometriosis Patient Data Age: 22 Gender: F Height: 1.63 m Weight: 50.5 kg Allergies Allergy/AdvReac Type Severity Reaction Status Date / Time tree nut Allergy Severe Anaphylaxis Verified 05/30/22 13:27 cefdinir [From Omnicef] Allergy Hives Verified 05/30/22 13:27 elagolix [From Orilissa] AdvReac Migraine Verified 05/30/22 13:27 escitalopram [From Lexapro] AdvReac Itching Verified 05/30/22 13:27 Home Medications Medication Instructions Recorded Confirmed Type lamotrigine 100 mg tablet 150 mg PO HS 05/22/21 05/30/22 History alprazolam 0.25 mg tablet 0.5 mg PO DAILY PRN Anxiety 12/16/21 05/30/22 History aripiprazole 5 mg tablet (Abilify) 5 mg PO HS 05/21/22 05/30/22 History hydrocodone 5 mg-acetaminophen 325 1 tablet PO Q4H PRN pain #20 tabs 05/30/22 Rx mg tablet Patient hx anesthesia problems: none Family hx anesthesia problems: none Results Review: All pre-operative results and documents have been reviewed as part of the pre-operative evaluation. [facility] Past Medical History Medical History Anxiety Asthma Depression Endometriosis History of suicide attempt Surgical History Surgical History No pertinent past surgical history Family History Family History Mother No pertinent past medical history Social History Social History Smoking status: Current some day smoker Tobacco type: e-cigarettes/vaping Alcohol intake: current Alcohol use details: 1-2/MONTH Substance use: current Substance use type: marijuana Living arrangements: with family Additional living arrangements comments: MOM Gender identity (if verbalized by the patient): Female Spiritual care concerns: No Anes - Eval Final PreProcedure Day of Procedure 05/30/22 15:09 Patient weight: thin Heart: regular rate and rhythm Lungs: clear to auscultation Airway: Mallampati scale class II Neurological: alert and oriented Last oral intake: >/= 8 hours ASA classification: II Emergent: no Anesthetic plan: proceed Anesthesia type and monitoring: general ETT and standard monitoring Results Review: All pre-operative results and documents have been reviewed as part of the pre-operative evaluation. Informed Consent: The patient's anesthetic plan and its attendant risks and benefits were discussed with the patient/family/POA. Questions were solicited and answers provided to the satisfaction of the patient/family/POA.
--- NOTE | 2022-05-30 16:01 | P.OP_ITS ---
Procedure Note - Detailed Date of Procedure 05/30/22 Pre-op Diagnosis Pain, Hx of Endometriosis Post-op Diagnosis Same Procedure Performed Laparoscopy destruction of endometriosis and destruction of left ovarian cyst Surgeon Philip Restrepo MD Anesthesia General Indications this is 22-year-old female with severe pelvic pain and history of endometriosis Findings normal-appearing ovaries uterus the uterus and tubes. The left ovary had a several small simple cyst areas of endometriosis were seen along the right uterosacral ligament Description of Procedure patient was prepped draped in the normal sterile fashion placed in the dorsal lithotomy position. Under excellent general trach anesthesia weighted speculum placed in posterior fornix vagina. Anterior lip of the cervix grasped with single-tooth tenaculum. The Knapp's cannula inserted attached to the single- tooth to be used later for uterine manipulation. After emptying the bladder clear urine weighted speculum was removed. The gloves were changed. An infraumbilical incision made the Veress needle passed in the abdomen. Abdomen filled with CO2 gas with 15mmHg. The 5mm trocar advanced under direct visualization assuring no injury. Patient placed in Trendelenburg and a suprapubic incision made. The 5mm trocar advanced under direct visualization assuring no injury. But 10cc of serosanguineous fluid was seen in the cul-de-sac the at this was suction irrigated removed. Area of endometriosis was seen along the right uterosacral ligament cauterized at 35 w per 2nd with monopolar cautery. The left ovarian cyst was seen in linear incision was made in this drained of clear fluid. The appendix appeared within normal limits the liver edge appeared within normal limits. No other abnormalities were seen. The lower site removed. The gas removed from the abdomen. The upper site removed. The incisions closed with 4 Monocryl and glue. Instruments removed from the vagina. Patient went to recovery in satisfactory condition. All sponge, needle, instrument counts were correct. There were no immediate complications Estimated Blood Loss 5 Drains No Packing No Pathology None sent Complications No immediate complications Condition Stable Disposition PACU
[2022-05-30] MEDS: HYDROmorphone HCL INJ (*CRX) 1 MG/ML SYR 0.25 MG IV PUSH ×5 (16:56→17:53)
[2022-05-30] MEDS: oxyCODONE HCL (*CRX) 5 MG TAB IR PO (17:39)
== END 2022-05-30 18:05 | disposition home or self-care (01) ==
PROVIDERS: Visit Provider Obstetrics & Gynecology
PROC: (CPT 49320; principal; 2022-05-30 15:30)
DX: N80.3C1 Endometriosis of the right uterosacral ligament, unspecified depth (principal); N83.202 Unspecified ovarian cyst, left side; R10.2 Pelvic and perineal pain; F41.9 Anxiety disorder, unspecified; F32.A Depression, unspecified; F17.290 Nicotine dependence, other tobacco product, uncomplicated; F12.90 Cannabis use, unspecified, uncomplicated
CPT/HCPCS: 58662; 36415; 86850; 86900; 86901; A9270; J1100; J1170; J1885; J2250; J2405; J2704; J2710; J7120

== ENCOUNTER 2022-06-23 10:48 | Emergency (ER) | payer OTHER, SELFPAY ==
[2022-06-23 11:03] VITALS: BP 110/75; PULSE 99; RESP 16; TEMP 37.2; O2SAT 100
--- NOTE | 2022-06-23 11:11 | ED.ABDPAIN ---
HPI - Abdominal Pain General Chief Complaint: Nausea/Vomiting/Diarrhea Stated Complaint: Abdominal Pain Time Seen by Provider: 06/23/22 11:19 Source: patient, RN notes reviewed and old records reviewed Mode of arrival: ambulatory Limitations: no limitations History of Present Illness HPI narrative: 22-year-old female presents to the [facility] with complaints of abdominal pain, nausea, vomiting and diarrhea that started yesterday. Is doing better today but needs a work note. Denies any abdominal pain currently. Reports occasional cramping in the left lower quadrant Denies any urinary symptoms frequency urgency or burning. Denies fever Patient also reports pressure and popping in her right ear Onset (ago): day(s) (1) Related Data Patient : No Home Medications Medication Instructions Recorded Confirmed lamotrigine 100 mg tablet 150 mg PO HS 05/22/21 06/23/22 alprazolam 0.25 mg tablet 0.5 mg PO DAILY PRN Anxiety 12/16/21 06/23/22 aripiprazole 5 mg tablet (Abilify) 5 mg PO HS 05/21/22 06/23/22 Allergies Allergy/AdvReac Type Severity Reaction Status Date / Time tree nut Allergy Severe Anaphylaxis Verified 05/30/22 13:27 cefdinir [From Omnicef] Allergy Hives Verified 05/30/22 13:27 elagolix [From Orilissa] AdvReac Migraine Verified 05/30/22 13:27 escitalopram [From Lexapro] AdvReac Itching Verified 05/30/22 13:27 Review of Systems Review of Systems: All systems reviewed & are unremarkable except as noted in HPI and below Constitutional: Constitutional: Reports no additional constitutional complaints Eyes: Eyes: Reports no additional eye complaints ENT: Reports system reviewed and no additional complaints, except as documented Cardiovascular: Cardiovascular: Reports no additional cardiovascular complaints, Denies chest pain and Denies dyspnea Respiratory: Respiratory: Reports no additional respiratory complaints, Denies chest congestion, Denies cough and Denies dyspnea Gastrointestinal: Gastrointestinal: Reports as per HPI, Reports abdominal pain, Reports diarrhea, Reports nausea and Reports vomiting Musculoskeletal: Musculoskeletal: Reports no additional musculoskeletal complaints Integumentary/Breasts: Skin/Breast: Reports system reviewed and no additional complaints, except as docu Neurologic: Reports system reviewed and no additional complaints, except as documented Psychiatric: Psychiatric: Reports no additional psychiatric complaints Allergic/Immunologic: Allergic/Immunologic: Reports no additional allergic/immunologic complaints PMFSH Past Medical History Medical History Anxiety Asthma Depression Endometriosis History of suicide attempt Surgical History Surgical History No pertinent past surgical history Family History Family History Mother No pertinent past medical history Social History Social History Smoking status: Current some day smoker Tobacco type: e-cigarettes/vaping Alcohol intake: current Alcohol use details: 1-2/MONTH Substance use: current Substance use type: marijuana Living arrangements: with family Additional living arrangements comments: MOM Gender identity (if verbalized by the patient): Female Spiritual care concerns: No Comments At the time of my signature, I reviewed and agree with the nursing past medical, surgical, social, and family history. There is no relevant family history pertinent to the patient complaint. Exam Const: General: cooperative, healthy appearing, comfortable, no acute distress, well developed, alert and well nourished Nutritional Appearance: well nourished Orientation/consciousness: patient oriented x3 Limitations: no limitations HENMT: Head: normal to inspection Ears: hearing grossly normal bilate
== END 2022-06-23 11:38 | disposition home or self-care (01) ==
PROVIDERS: Emergency Provider Nurse Practitioner
DX: R11.2 Nausea with vomiting, unspecified (principal); H65.01 Acute serous otitis media, right ear; F17.290 Nicotine dependence, other tobacco product, uncomplicated; J45.909 Unspecified asthma, uncomplicated; N80.9 Endometriosis, unspecified; F41.9 Anxiety disorder, unspecified; F32.A Depression, unspecified
CPT/HCPCS: 99211; G0463

== ENCOUNTER 2023-01-26 11:12 | Outpatient (CLI) | payer OTHER, SELFPAY | END 2023-01-26 11:13 | disposition home or self-care (01) | LOC: ANHSURGERY 11:18 | PROVIDERS: Visit Provider Obstetrics & Gynecology | DX: R10.2 Pelvic and perineal pain (principal); Z01.818 Encounter for other preprocedural examination | CPT/HCPCS: 36415; 86850; 86900; 86901 ==

== ENCOUNTER 2023-01-30 01:30 | Day surgery (SDC) | payer OTHER, SELFPAY ==
[2023-01-21 11:19] VITALS: BMI 19.8
--- NOTE | 2023-01-21 11:24 | PC.NURSE ---
Report to the Outpatient Waiting Room, entrance under the green pavilion located off [facility], at time _1045_ on date _[id number]_. Planned Procedure Time: _1245_. Time changes happen often and if your time is changed the preop area will call you the afternoon before. - You and your visitor will be asked to self-screen and do not enter if you have any COVID symptoms. - A mask is optional within the hospital at this time. Patients may have clear liquids (water, carbonated beverages, clear teas, apple juice) until 3 hours prior to surgery with a maximum of 20 ounces. - No food from midnight until time of surgery Take the following medications with a SIP of water the morning of surgery: ____Alprazolam if needed. DO NOT STOP ANY OF YOUR OTHER PRESCRIPTION MEDICATIONS PRIOR TO SURGERY ?EXCEPT THE FOLLOWING Medications to discontinue per physician None Date to take last dose Please no make-up, nail hungarian, hairspray, perfume, deodorant, or body powder the day of surgery. No jewelry (including any body piercings) or valuables the day of surgery, leave them at home. Please take a shower or bath the night before, or the morning of, surgery with an antibacterial soap. Wear comfortable, loose fitting clothing. - Jewelry must be removed prior to entering the operating room. Rings and piercings that are not removed may be cut off. - The hospital will not accept responsibility for valuables. - Please leave all valuables, including medications, at home the day of surgery. If you are going home after surgery, a licensed cab driver must drive you home. - NO public transportation without another adult if you receive anesthesia. - We recommend that an adult stay with you for 24 hours following discharge. - We also recommend that you do not drive, make important decision, drink alcoholic beverages, or take any drugs that were not prescribed by your health care provider for at least 24 hours after your discharge time. Follow any additional instructions given to you from your surgeon. If you or anyone in your household have experienced Covid symptoms in the past week, please notify your surgeon or the nurse liaison at the phone number below for possible testing. Telephone instructions given to __Patient__and asked if any additional questions and then verbalized understanding. Patient advised to call surgeon office or pre surgery nurse liaison [phone] if any additional questions.
--- NOTE | 2023-01-28 07:31 | PM.IMHP ---
H&P: HPI History of Present Illness Date/Time: 01/28/23 07:31 Chief Complaint: Pelvic pain Narrative: A 22-year-old female with known history of endometriosis admitted for diagnostic laparoscopy and cauterization of endometriosis. Risks and benefits reviewed including but not exclusive of , aspiration pneumonia, bleeding, transfusion, perforation injury to bowel, bladder, ureters, or other internal organs with need for laparotomy. She had all questions answered and asked to proceed. She was offered alternative methods but was definitive in her desire for this procedure PMFSH Past Medical History Medical History (Updated 01/28/23 @ 07:34 by Philip Restrepo MD) Anxiety Asthma Depression Endometriosis History of suicide attempt Pelvic pain Surgical History Surgical History No pertinent past surgical history Family History Family History Mother No pertinent past medical history Social History Social History Smoking status: Current some day smoker Tobacco type: e-cigarettes/vaping Alcohol intake: current Alcohol use details: 1-2/MONTH Substance use: current Substance use type: marijuana Other substance usage details: Daily Living arrangements: with family Additional living arrangements comments: MOM Gender identity (if verbalized by the patient): Female Spiritual care concerns: No Meds Home Medications and Allergies Home Medications Medication Instructions Recorded Confirmed Type lamotrigine 100 mg tablet 150 mg PO HS 05/22/21 01/21/23 History alprazolam 0.25 mg tablet 0.5 mg PO DAILY PRN Anxiety 12/16/21 01/21/23 History aripiprazole 5 mg tablet (Abilify) 5 mg PO HS 05/21/22 01/21/23 History Allergies Allergy/AdvReac Type Severity Reaction Status Date / Time tree nut Allergy Severe Anaphylaxis Verified 01/21/23 11:18 morphine Allergy Mild Agitated Verified 01/21/23 11:18 cefdinir [From Omnicef] Allergy Hives Verified 01/21/23 11:18 elagolix [From Orilissa] AdvReac Migraine Verified 01/21/23 11:18 escitalopram [From Lexapro] AdvReac Itching Verified 01/21/23 11:18 Exam Const: General: cooperative, healthy appearing and comfortable Nutritional Appearance: average body habitus Orientation/consciousness: oriented to person, oriented to place and oriented to time HENMT: Head: normal to inspection Resp: Effort & Inspection: normal respiratory effort Cardio: Rate: regular rate Rhythm: regular rhythm Heart sounds: S1 normal heart sound present and S2 normal heart sound present GI: Inspection: normal to inspection : External Female Exam: normal external appearance Speculum Exam - Vagina: normal appearance of the vagina Speculum Exam - Cervix: normal appearance of the cervix Bimanual exam- vagina & uterus: Cervical tenderness present Bimanual Exam- Adnexa, other: tender bilaterally Assessment and Plan Assessment and plan (1) Pelvic pain: Code(s): R10.2 - Pelvic and perineal pain Status: Acute Plan Laparoscopy
[2023-01-30] VITALS (9 sets, daily range): BP systolic 102–123; BP diastolic 56–82; PULSE 64–90; RESP 14–18; TEMP 36.2–36.9; O2SAT 97–100
--- NOTE | 2023-01-30 06:30 | WPDHPUPDATE1 ---
History and Physical Update Update Date/Time: 01/30/23 06:30 History and Physical has been reviewed, including an updated exam of the patient. There are NO changes in the patient's condition. Risks, benefits, and alternatives have been discussed and questions answered. Patient agrees to proceed with procedure.
[2023-01-30] MEDS: LACTATED RINGERS 1,000 ML 30 ML IV CONT (08:39)
--- NOTE | 2023-01-30 08:51 | WPDANESEPPF ---
Anes - Initial Pre Proc Eval Procedure: Operation Date: 01/30/23 10:00 Proposed Procedures p Diagnostic Laparoscopy with Cautery of Endometriosis - Philip Restrepo MD Date/Time: 01/30/23 08:51 Surgeon: Philip Restrepo MD Pre Op Diagnosis: pain dysperennia, endometriosis Patient Data Age: 22 Gender: F Height: 1.63 m Weight: 52.3 kg Allergies Allergy/AdvReac Type Severity Reaction Status Date / Time tree nut Allergy Severe Anaphylaxis Verified 01/21/23 11:18 morphine Allergy Mild Agitated Verified 01/21/23 11:18 cefdinir [From Omnicef] Allergy Hives Verified 01/21/23 11:18 elagolix [From Orilissa] AdvReac Migraine Verified 01/21/23 11:18 escitalopram [From Lexapro] AdvReac Itching Verified 01/21/23 11:18 Home Medications Medication Instructions Recorded Confirmed Type lamotrigine 100 mg tablet 150 mg PO HS 05/22/21 01/21/23 History alprazolam 0.25 mg tablet 0.5 mg PO DAILY PRN Anxiety 12/16/21 01/21/23 History aripiprazole 5 mg tablet (Abilify) 5 mg PO HS 05/21/22 01/21/23 History hydrocodone 5 mg-acetaminophen 325 1 tablet PO Q4H PRN pain #20 tabs 01/30/23 Rx mg tablet Patient hx anesthesia problems: none Family hx anesthesia problems: none Results Review: All pre-operative results and documents have been reviewed as part of the pre-operative evaluation. [facility] Past Medical History Medical History Anxiety Asthma Depression Endometriosis History of suicide attempt Pelvic pain Surgical History Surgical History (Updated 01/30/23 @ 08:52 by Philip Leon MD) H/O laparoscopy Family History Family History Mother No pertinent past medical history Social History Social History Smoking status: Current some day smoker Tobacco type: e-cigarettes/vaping Alcohol intake: current Alcohol use details: 1-2/MONTH Substance use: current Substance use type: marijuana Other substance usage details: Daily Living arrangements: with family Additional living arrangements comments: MOM Gender identity (if verbalized by the patient): Female Spiritual care concerns: No Anes - Eval Final PreProcedure Day of Procedure 01/30/23 08:51 Patient weight: normal Heart: regular rate and rhythm Lungs: clear to auscultation Airway: Mallampati scale class II Neurological: alert and oriented Last oral intake: >/= 8 hours ASA classification: II Emergent: no Anesthetic plan: proceed Anesthesia type and monitoring: general ETT and standard monitoring Results Review: All pre-operative results and documents have been reviewed as part of the pre-operative evaluation. Informed Consent: The patient's anesthetic plan and its attendant risks and benefits were discussed with the patient/family/POA. Questions were solicited and answers provided to the satisfaction of the patient/family/POA.
[2023-01-30] MEDS: KETOROLAC 15 MG/ML VIAL (*BKC) IV PUSH (08:54)
[2023-01-30] MEDS: SCOPOLAMINE 1.5 MG PATCH TRANSDERM (08:54)
--- NOTE | 2023-01-30 09:54 | P.OP_ITS ---
Procedure Note - Detailed Date of Procedure 01/30/23 Pre-op Diagnosis pain dysperennia, endometriosis Post-op Diagnosis Same (Also right ovarian cyst) Procedure Performed Laparoscopy with destruction of endometriosis and destruction of right ovarian cyst Surgeon Philip Restrepo MD Anesthesia General Indications This is a 22-year-old female with a history of endometriosis and severe pelvic pain Findings Normal-appearing left ovary and tube normal-appearing right tube normal- appearing uterus. Small right ovarian cyst. Blistered endometriosis along the right and left uterosacral ligaments. Normal-appearing appendix and liver edge Description of Procedure Patient was prepped draped in the normal sterile fashion placed in the dorsal lithotomy position. Under excellent general trach anesthesia weighted speculum was placed in the posterior fornix of vagina. Anterior lip of the cervix grasped with a single-tooth tenaculum. Knapp's cannula inserted the cervix and attached to the single-tooth tenaculum to be used later for uterine manipulation. After emptying the bladder of clear urine the weighted speculum was removed and the gloves were changed. An infraumbilical incision made the Veress needle passed in the abdomen. Abdomen filled with CO2 gas [id number]. The 5mm trocar advanced with the optic scope under direct visualization assuring no injury. Patient was placed in Trendelenburg and a suprapubic incision made. The 5mm trocar advanced under direct visualization assuring no injury. [id number] of serosanguineous fluid was seen in the cul de sacs and this was suctioned and irrigated away. Small areas of endometriosis were seen along the right left uterosacral ligament with right greater than left. Small right ovarian cyst was also noted this was drained of clear follicular fluid. Cauterization with the 35mm firm up of mercury was undertaken to the endometriosis. Irrigation undertaken to clear. The trocars were then removed after the gas removed from the abdomen. The incisions closed with 4 Monocryl glue and the patient went to recovery in satisfactory condition. All sponge, needle, instrument counts were correct. There were no immediate complications Estimated Blood Loss 5 Drains No Packing No Pathology None sent Complications No immediate complications Condition Stable Disposition PACU
[2023-01-30] MEDS: fentaNYL CITRATE INJ (*CRX) 100 MCG/2 ML VIAL 25 MCG IV PUSH ×6 (10:30→12:19)
[2023-01-30] MEDS: MIDAZOLAM HCL (*CRX) 2 MG/2 ML VIAL 1 MG IV PUSH ×2 (10:46→10:53)
[2023-01-30] MEDS: ONDANSETRON INJ 4 MG/2 ML VIAL IV PUSH (12:44)
[2023-01-30] MEDS: HYDROcodone/acetaminophen (*CRX) 5-325 MG TABLET 1 TAB PO (12:44)
--- NOTE | 2023-01-30 13:08 | SUR.PHASEII ---
PATIENT HAD INTERMITTENT ANXIETY/PAIN DURING MUCH OF OP PERIOD, RESOLVING AT ABOUT 1230 PM. LAST HALF HOUR SHE WAS CALM, HAPPY AND CHATTING WITH HER FRIEND. ABLE TO MOVE ABOUT EASILY.
--- NOTE | 2023-01-30 13:12 | SUR.PHASEI ---
1200 - pt received fentanyl in 25 mcg increments at 1045, at 1050, and 1057. not charted in the mar.
== END 2023-01-30 13:10 | disposition home or self-care (01) ==
PROVIDERS: Visit Provider Obstetrics & Gynecology
PROC: (CPT 49320; principal; 2023-01-30 10:00)
DX: N80.3C3 Endometriosis of bilateral uterosacral ligament(s), unspecified depth (principal); N83.201 Unspecified ovarian cyst, right side; R10.2 Pelvic and perineal pain; N94.10 Unspecified dyspareunia; F41.9 Anxiety disorder, unspecified; F32.A Depression, unspecified; F17.290 Nicotine dependence, other tobacco product, uncomplicated; F12.90 Cannabis use, unspecified, uncomplicated
CPT/HCPCS: 58662; 36415; 86850; 86900; 86901; A9270; J1100; J1885; J2250; J2310; J2405; J2704; J3010; J7120

== ENCOUNTER 2023-02-06 13:15 | Emergency (ER) | payer OTHER, SELFPAY ==
--- NOTE | 2023-02-06 13:17 | ED.URI ---
HPI - URI/Sore Throat General Chief Complaint: Upper Respiratory Infection Stated Complaint: Sore Throat Time Seen by Provider: 02/06/23 13:36 Source: patient, RN notes reviewed and old records reviewed Mode of arrival: ambulatory Limitations: no limitations History of Present Illness HPI Narrative: 22-year-old female presents to the [facility] with a sore throat x2 days. Had taken left over doxycycline. Reports younger siblings have strep. Denies any other symptoms other than a sore throat. Onset (ago): day(s) (2) Treatments prior to arrival: antibiotics ( left over ) Related Data Home Medications Medication Instructions Recorded Confirmed lamotrigine 100 mg tablet 150 mg PO HS 05/22/21 01/30/23 alprazolam 0.25 mg tablet 0.5 mg PO DAILY PRN Anxiety 12/16/21 01/30/23 aripiprazole 5 mg tablet (Abilify) 5 mg PO HS 05/21/22 01/30/23 Allergies Allergy/AdvReac Type Severity Reaction Status Date / Time tree nut Allergy Severe Anaphylaxis Verified 02/06/23 13:25 morphine Allergy Mild Agitated Verified 02/06/23 13:25 cefdinir [From Omnicef] Allergy Hives Verified 02/06/23 13:25 elagolix [From Orilissa] AdvReac Migraine Verified 02/06/23 13:25 escitalopram [From Lexapro] AdvReac Itching Verified 02/06/23 13:25 Review of Systems Review of Systems: All systems reviewed & are unremarkable except as noted in HPI and below Constitutional: Constitutional: Reports no additional constitutional complaints Eyes: Eyes: Reports no additional eye complaints ENT: Reports as per HPI and Reports sore throat Cardiovascular: Cardiovascular: Reports no additional cardiovascular complaints, Denies chest pain and Denies dyspnea Respiratory: Respiratory: Reports no additional respiratory complaints, Denies chest congestion, Denies cough and Denies dyspnea Gastrointestinal: Gastrointestinal: Reports no additional gastrointestinal complaints, Denies abdominal pain, Denies nausea and Denies vomiting Musculoskeletal: Musculoskeletal: Reports no additional musculoskeletal complaints Integumentary/Breasts: Skin/Breast: Reports system reviewed and no additional complaints, except as docu Neurologic: Reports system reviewed and no additional complaints, except as documented Psychiatric: Psychiatric: Reports no additional psychiatric complaints Allergic/Immunologic: Allergic/Immunologic: Reports no additional allergic/immunologic complaints PMFSH Past Medical History Medical History Anxiety Asthma Depression Endometriosis History of suicide attempt Pelvic pain Surgical History Surgical History H/O laparoscopy Family History Family History Mother No pertinent past medical history Social History Social History Smoking status: Current some day smoker Tobacco type: e-cigarettes/vaping Alcohol intake: current Alcohol use details: 1-2/MONTH Substance use: current Substance use type: marijuana Other substance usage details: Daily Living arrangements: with family Additional living arrangements comments: MOM Gender identity (if verbalized by the patient): Female Spiritual care concerns: No Comments At the time of my signature, I reviewed and agree with the nursing past medical, surgical, social, and family history. There is no relevant family history pertinent to the patient complaint. Exam Const: General: cooperative, healthy appearing, comfortable, no acute distress, well developed, alert and well nourished Nutritional Appearance: well nourished Orientation/consciousness: patient oriented x3 Limitations: no limitations HENMT: Head: normal to inspection Ears: hearing grossly normal bilaterally and external ears normal Face/Nose/Sinus: Normal external nose present, Normal nares present, Normal
[2023-02-06 13:27] VITALS: BP 110/71; PULSE 97; RESP 16; TEMP 37; O2SAT 100
== END 2023-02-06 13:55 | disposition home or self-care (01) ==
PROVIDERS: Emergency Provider Nurse Practitioner
DX: J02.9 Acute pharyngitis, unspecified (principal); F17.290 Nicotine dependence, other tobacco product, uncomplicated; F12.90 Cannabis use, unspecified, uncomplicated; J45.909 Unspecified asthma, uncomplicated; N80.9 Endometriosis, unspecified; F41.9 Anxiety disorder, unspecified; F32.A Depression, unspecified
CPT/HCPCS: 87081; 87880; 99213; G0463

== ENCOUNTER 2024-06-16 13:33 | Outpatient (CLI) | payer OTHER, SELFPAY ==
--- OUTSIDE RECORDS SUMMARY | 2024-06-16 13:44 | XMS_ITS | Continuity of Care Document ---
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 Name Role Phone Joan CHOI, Pineda Unavailable Unavailable Allergies, Adverse Reactions, Alerts Substance Reaction Status Criticality cefdinir Diarrhea Active No Information Medications Medication Instructions Dosage Effective Dates (start - stop) Status Comments EPINEPHRINE 0.3 MG AUTO-INJECT INJECT 0.3 ML INTRAMUSCULARLY ONCE NEEDED FOR ANAPHYLAXIS - Active FLOVENT HFA 44 MCG INHALER TAKE 2 PUFFS BY MOUTH TWICE A DAY - Active ALBUTEROL HFA (PROVENTIL) INH INHALE 2 PUFFS BY MOUTH EVERY 4-6 HOURS NEEDED 2 puff - Active Aerochamber Plus Z Stat spacer Use with MDI as instructed - Active olanzapine 5 mg tablet - Active divalproex 125 mg capsule,delayed release sprinkle - Active levetiracetam 500 mg tablet - Active lithium carbonate ER 450 mg tablet,extended release - Active buspirone 7.5 mg tablet - Active alprazolam 0.25 mg tablet - Active EpiPen 2-Jarad 0.3 mg/0.3 mL injection, auto-injector inject 0.3 milliliter by intramuscular route once as needed for anaphylaxis 0.3 MG - No Longer Active Please dispense 2 two packs Procedures Procedure Date PREVENTIVE COUNSELING, INDIV EVALUATE PT USE OF INHALER Health Risk Assesment Patient Focused Perc Test New (Level 4) OFFICE/OUTPATIENT VISIT Advance Directives Directive Yes / No Effective Date File Name No Information Encounters Encounter Description Practice Location Reason(s) For Visit Diagnoses Date Provider Providers Copied on Encounter [facility], [address] [place] [address], [address] [place] [address], tel:[phone] [facility] No Information 1 Joan Sung. [address] [place] [address], [address] [place] [address] , . tel:[phone] Referring Provider: Scarlet Li, [address] [place] [address], [place], [place], [address] [place] [address] . tel:[phone] [facility], [address] [place] [address], [id number], tel:[phone] [facility] No Information 1 Yazan Novak. [address] [place] [address], [address], [address] [place] [address] , . tel:[phone] Referring Provider: Scarlet Li, [address] [place] [address], [place], [place], [address] [place] [address] . tel:[phone] [facility], [address] [place] [address], [id number], tel:[phone] [facility] No Information 1 Joan Sung. [address] [place] [address], [address], [id number] , . tel:[phone] Referring Provider: Scarlet Li, [address] [place] [address], [place], [place], [address] [place] [address] . tel:[phone] [facility], [address] [place] [address], [id number], tel:[phone] [facility] No Information 1 Steffi [facility] Gurvinder. [address] [facility], [place], [place], [facility] [place], [place]. tel:[phone] Referring Provider: Scarlet Li, [address] [place] [address], [place], [address] . tel:[phone] PREVENTIVE COUNSELING, INDIV [facility], [address] [place] [address], [place], [place], [id number], tel:[phone] [facility] allergy symptoms (chief complaint) Oth adverse food reactions, not elsewhere classified, initAllergy to nuts other than peanutsAsthmaOthe r allergic rhinitis 1 Steffi [facility] Gurvinder. [address] [facility], [place], [place], [facility] [place], [place]. tel:[phone] Referring Provider: Scarlet Li, [address] [place] [address], [place], [address] . tel:[phone] Family History Family Member Type Diagnosis Age At Onset No Information Payers Payer name Insurance type Covered green party ID Kalen flowers(s) Petey [id number] Social History Type Description Quantity Date Captured Comments Sex Female Smoking Status No Information Chief Complaint And Reason For Visit No Information Reason For Referral Reason For Referral No Information Plan Of Treatment Date Type Action Status Future Order: Lab Order ALMOND I gE (F20) ([id number]), Ordered on: Ordered Future Order: Lab Order Byfield N ut IgE W/Component Reflex ([id number]), Ordered on: Ordered Future Order: Lab Order Cashew N ut IgE W/Component Reflex ([id number]), Ordered on: Ordered Future Order: Lab Order Hazelnut IgE W/Component Reflex ([id number]), Ordered on: Ordered Future Order: Lab Order IgE, TOT AL ([id number]), Ordered on: Ordered Future Order: Lab Order Macadami a IgE (RF345) ([id number]), Ordered on: Ordered Future Order: Lab Order PECAN NU T IgE (F201) ([id number]), Ordered on: Ordered Future Order: Lab Order PISTACHI O NUT IgE (F203) ([id number]), Ordered on: Ordered History Of Present Illness Encounter Date Complaint History Of Prese nt Illness allergy symptoms She is a 20 yea r old female with a history of tree nut allergy, asthma, and allergy symptoms who presents today for allergy testing. She also requests refills of her EpiPens and albuterol inhaler. This is her initial visit. She is accompanied by her support person, Romy. She is interested in skin testing today for environmental, seasonal, and food allergies. She has allergy symptoms of stuffy nose, eye swelling, watery eyes, itchy eyes, congestion, runny nose and headaches. Her symptoms are worse in Spring and Fall. She thinks she is allergic to cats and birds. She will take either benadryl or Zyrtec PRN. Allergy symptoms do increase her asthma symptoms. While she presents today for skin testing, she is very anxious about the process.She has a history of asthma that was diagnosed in childhood. She reports she always feels like she is having a hard time breathing but reports her SPO2 is always normal. She has been seen most recently in for breathing 3-4 years ago. She was on oxygen and used albuterol. Denies use of oral steroids at that time. She takes albuterol PRN but uses a family member's inhaler, as she has been out of this medication. Reports that she used to be on daily Singulair and previously needed a daily inhaler that was orange, and may have been Flovent. She reports being unsure of what symptoms are related to her asthma vs her anxiety.She reports known food allergies to tree nuts. Has carried an EpiPen before, but does not currently have one. She reports being diagnosed with the tree allergy in childhood, and denies any known reactions. She avoids tree nuts. She reports drinking almond milk in coffee in 2019 and having a weird throat feeling. Reports being highly allergic to [place] Nuts. Eats peanut butter routinely.She reports her throat feels weird when eating eggs, particularly egg yolks. She feels like she has a hard time breathing after eating egg yolk. She avoids eggsShe reports throat feeling weird with eating strawberry or pineapple. She avoids fruits. She last had allergy testing at age 2.Patient denies a history of eczema, urticaria/angioedema, recurrent infections, contact dermatitis, latex allergy or stinging insect hypersensitivity.SHx: Lives in house with Mom. House built 2005, has lived there 6 months. One bird. Central A/C, gas heat. Carpet in living room and other bedrooms. Finished basement, no mold- uses humidifier. Vapes +nicotine. No smokers in the home. Off of work for [employer], off school for this semester. 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 Immunizations UTD without flu shots Functional Status Date Functional Assessmen t No Information Instructions Date Instruction Additional Infor mation No Information Assessments Type Assessment Date No Information Patient Care Teams Name Effective Dates (start - stop) Status Members No Information
--- OUTSIDE RECORDS SUMMARY | 2024-06-16 13:44 | XMS_ITS | Clinical Summary ---
Author Organization [facility] Address [address] [place] [id number] Phone Care Team Providers Care Chemists Name Role Phone Jennifer Reyes Primary Care Provider [phone] Allergies Active Allergy Reactions Criticality Noted Date Comments Cefdinir Diarrhea,Hives Medium 02/27/2020 Prochlorperazine Hives Medium 06/27/2020 Reaction: HIVES, Tree Extract Anaphylaxis High 12/11/2021 Medications Medication Sig Dispensed Refills Start Date End Date Status ALPRAZolam (XANAX) 0.5 MG tablet TAKE 1 BY MOUTH EVERY 12 HOURS NEEDED 11/25/2021 Active buPROPion XL (WELLBUTRIN XL) 300 MG 24 hr tablet Take 300 mg by mouth 1 (one) time each day 11/04/2021 Active cyclobenzaprine (FLEXERIL) 10 MG tablet TAKE 1 TABLET BY MOUTH THREE TIMES A DAY NEEDED FOR MUSCLE SPASM 11/02/2021 Active escitalopram (LEXAPRO) 5 MG tablet TAKE 1 TABLET BY MOUTH EVERY DAY IN THE MORNING 09/16/2021 Active FLUoxetine (PROzac) 20 MG capsule TAKE 1 CAPSULE BY MOUTH EVERY DAY IN THE MORNING (DISCONTINUE ESCITALOPRAM) 10/22/2021 Active HYDROcodone-acetamino phen (NORCO) 5-325 MG per tablet Take 1 tablet by mouth every 6 (six) hours if needed for pain 12/04/2021 Active lamoTRIgine (LaMICtal) 100 MG tablet Take 100 mg by mouth every night 11/05/2021 Active albuterol HFA (PROVENTIL HFA) 108 (90 Base) MCG/ACT inhaler Inhale 2 puffs 06/20/2020 Active butalbital-acetaminop hen-caffeine (FIORICET) 50-325-40 MG per tablet TAKE 1 TABLET BY MOUTH EVERY 6 HOURS NEEDED FOR HEADACHES 02/10/2022 Active Orilissa 200 MG tablet 01/24/2022 Active ondansetron ODT (ZOFRAN-ODT) 4 MG dispersible tablet TAKE 1 TABLET BY MOUTH EVERY 8 HOURS NEEDED FOR NAUSEA AND VOMITING 02/10/2022 Active Active Problems Problem Noted Date Diagnosed Date Dermatitis 06/12/2021 Overview (12/11/2021): Last Assessment & Plan: Will add steroid cream bid x 7 days. She was advised f/u in the next week if not improving, sooner if worsening. Endometriosis 06/12/2021 Overview (12/11/2021): Last Assessment & Plan: Continue with care per litigation attorney Otalgia of right ear 06/12/2021 Overview (12/11/2021): Last Assessment & Plan: Advised no drops in ear Advised wearing cotton in ear when showering for the next week Advised adding 500mg tylenol q6h prn pain to current ibuprofen regimen x 3d Advised f/u if not improving or if worsening over the next week Otorrhea of right ear 06/12/2021 Overview (12/11/2021): Last Assessment & Plan: Advised no drops in ear Advised wearing cotton in ear when showering for the next week Advised adding 500mg tylenol q6h prn pain to current ibuprofen regimen x 3d Advised f/u if not improving or if worsening over the next week Recurrent major depressive episodes, moderate Overview (12/11/2021): Last Assessment & Plan: Continue with care per psychiatry Tobacco use 06/12/2021 Overview (12/11/2021): Last Assessment & Plan: Encouraged continued attempts at smoking cessation, discussed that the wellbutrin may benefit these attempts 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 -Epinephrine 0.3mg IM PRN anaphylaxis Mild intermittent asthma 05/24/2018 Overview (12/11/2021): Last Assessment & Plan: Present on admission, currently asymptomatic. -Albuterol PRN Neck pain 12/02/2016 Overview (12/11/2021): Last Assessment & Plan: Present on admission. Given description as unilateral to bilateral, progressive, daily, throbbing headache accompanied by blurry vision, diplopia, and left sided decreased sensation of light touch & temperature with left sided extremity weakness at this time most concerning for: -Complex migraine: severity of headache with addition neurologic deficits -Idiopathic intracranial hypertension: with history of pulsatile tinnitus & positional quality of headache in addition to above characteristics Other considerations that are less likely at this time: -Cerebral Venous Sinus thrombosis as patient has vision changes with headache and is on oral contraceptives. However, her headache has been progressive over one month's time, she is a non-smoker, not , no other known chronic illness predisposing her to hypercoagulation. -Meningitis as patient has had headache and neck pain, however no fevers, no vital sign instability on presentation, currently non-ill appearing, and is without nuchal rigidity on exam. -Intracranial mass, however no notable cranial nerve palsies, papilledema, or vomiting for concern for elevated intracranial pressure. At this time would hold her Oral Contraceptives, continue toradol with compazine & benadryl as well as IV fluid hydration. 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 Foot pain 01/15/2016 Immunizations Name Administration Dates Next Due Influenza, Injectable, Quadrivalent, Preservativ e Free 05/25/2020,05/25/2018 Family History Medical History Relation Comments Nephrotic syndrome Brother Relation Status Comments Brother Social History Tobacco Use Types Packs/Day Years Used Date Smoking Tobacco: Every Day Smokeless Tobacco: Never Tobacco Cessation:Ready to Q uit: No; Counseling Given: Yes Comments:e-cigarettes/vaping Alcohol Use Standard Drinks/Week Comments Yes 0 (1 standard drink = 0.6 oz pur e alcohol) occasional use Sex and Gender Information Value Date Recorded Sex Assigned at Not on file Gender Identity Not on file Sexual Orientation Not on file Last Filed Vital Signs Vital Sign Reading Time Taken Comments Blood Pressure 134/70 12/11/2021 9:12 AM CDT Pulse - - Temperature 36.7 C (98.1 F) 12/11/2021 9:12 AM CDT Respiratory Rate 18 12/11/2021 9:12 AM CDT Oxygen Saturation - - Inhaled Oxygen Concentration - - Weight 52.2 kg (115 lb) 12/11/2021 9:12 AM CDT Height 162.6 cm (5' 4 ) 12/11/2021 9:12 AM CDT Body Mass Index 19.74 12/11/2021 9:12 AM CDT Plan of Treatment Health Maintenance Due Date Last Done Comments COVID-19 Vaccine ( season) 2023, 09/17/2020 Influenza Vaccine (#1) 2023 05/25/2020, 2018 Care Teams Chemists Relationship Specialty Start Date End Date Jennifer Reyes PA PCP - General Family Medicine 01/02/22
--- OUTSIDE RECORDS SUMMARY | 2024-06-16 13:45 | XMS_ITS ---
Author Organization [facility] [employer] Address [address] [address] Care Team Providers Care Edi Programmer Name Role Phone Herlinda Arriola Unavailable [phone] Allergies Allergen (clinical drug ingredient) Drug/Non Drug Allergy documented on EMR Reaction Allergy Type Onset Date Status TREE NUT (uncoded) Unknown Allergy 08/21/2023 Active escitalopram Lexapro Unknown Drug Allergy 08/21/2023 Act adam Omnicef Unknown Drug Allergy 08/21/2023 Active REASON FOR VISIT walk in today crisis Medications Medication SIG (Take, Route, Frequency, Duration) Notes Start Date End Date Status lamoTRIgine 200 MG 1 tablet Oral Once a day for 30 days d/c 150 mg dose Active ARIPiprazole 10 MG 1 tablet Oral Once a day for 90 days Active hydrOXYzine HCl 10 MG 1 tablet Orally three times a day for 30 days As needed Active Social History Sex Assigned At : Social History Observation Description Sex Assigned At Female Vital Signs Blood pressure systolic 149 mm Hg 05/16/19 25 Blood pressure diastolic 87 mm Hg 025 Height 64.00 in 05/16/2024 Height-cm 162.56 cm 05/16/2024 Encounters Encounter Location Date Provider Diagnosis [facility] [employer] [facility] [address] [facility] [address] [place] [address] 05/16/2024 Herlinda Arriola Bipolar disorder, current episode depressed, mild F31.31 ; Generalized anxiety disorder F41.1 ; Insomnia due to other mental disorder F51.05 ; Post-traumatic stress disorder, chronic F43.12 and 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 Z79.899 Assessments Encounter Date Diagnosis (ICD Code) Assessment Notes Treatment Notes Treatment Clinical Notes Section Notes 05/16/2024 Bipolar disorder, current episode depressed, mild (ICD-10 - F31.31) Bipolar Disorder: Care Instructions material was published, Learning About Movement Disorders From Antipsychotic Medicines material was published, Learning About How to Get Help During a Mental Health Crisis material was published, Learning About Long-Acting Injectable Antipsychotic Medicines material was published, Learning About Mood Disorders material was published, Learning About Long-Acting Injectable Antipsychotic Medicines material was published, Learning About How to Get Help During a Mental Health Crisis material was published, Learning About Movement Disorders From Antipsychotic Medicines material was published 1. Bipolar I disorder, most recent episode depression - educated to take rx as prescribed Abilify 10 mg at bedtime continue rx and educated on complaince rx jaleel 05/19 [email or web address] -[email or web address]- adhd/ Increase Lamotrigine 200 mg - patient reported depression increase will schedule weekly appointment for next month for increase depression educated on Lamotrigine and watch for rash Lamotrigine lamotrigine has a serious rashes requiring hospitalization and discontinue treatment includingSteven Noble syndrome rare case of toxic epidermal necrolysis and cache related deaths.Incidence with adjunct of epilepsy treatment 0.8% in 2 to 16 years old and 0.3% in adults, bipolarand other mood disorders incidence 0.8% this initial monotherapy and 0.13% as adjunctivetreatment. Other risk factor may include concomitant use of valproate acid derivative or exceeding initiallamotrigine does or does as clinician recommendation; most life-threatening rash of occurring first 2to 8 week of treatment with isolated cases after prolonged treatment; though benign may occur,discontinue treatment at first sign of rash unless clearly not a drug related; TC treatment may notprevent trash from becoming life-threatening or permanently disabling or disfiguring.Comment reaction include, nausea/vomiting, dizziness/vertigo, visual disturbances, somnolence,ataxia, pruritus/rash, pharyngitis, headache, rhinitis, diarrhea, fever, asthenia, insomnia, tremor,abdominal pain, cough, accidental injury, constipation, dysmenorrhea, incoordination, anxiety,seizures, irritability, anorexia, xerostomia, and photosensitivity.Ser ious reactions include: Rash, severe; Stuart Noble syndrome; toxic epidermal necrosis;injury edema, hypersensitivity reactions. Including fatal, multiple organ failure to safe fatal, rash witheosinophilia systemic symptoms, DIC, neutropenia, leukopenia, thrombocytopenia, pancytopenia,aplasti c anemia, hemolytic anemia, i pancreatitis, hepatic failure, rhabdomyolysis, worsening ofsuicidal ideation, worsening of depression, cleft lip/palate [first trimester use]DO not Change Cosmetic, perfumes or soap for next 4 weeks.The patient was advice to take lamotrigine as prescribed the patient was instructed not to deviatefrom the prescription dosages. Stop lamotrigine is the first sign of rash. Patient was insisted to informoffice if any of the serious side effect develops. educated on not drinking ETOH on medications educated on compliance on all medications educated on all medications, benefits, side effects and risk, and educated on depression, anxiety, and ADHD, mood d/o and educated on compliance of medications, metabolic and movement d/o education appointment is, continue therapy discussion with patient about course of treatment and patient instructions. education on serotonin syndrome SSRI/SNRI side effects discussed including but not limited to, gastric upset, nausea, vomiting, diarrhea and/or constipation, weight changes, sexual side effects including loss of libido, increased suicidal thoughts/behaviors in children and young adults, and serotonin syndrome. Second generation antipsychotics (SGAs) have metabolic syndrome issues with weight gain, increase in prolactin, increased waist circumference, increased lipids, and increased glucose. Thus routine monitoring of weight, metabolic labs, etc. is indicated. A general rank ordering of antipsychotics that have the greatest to the least risk of metabolic effects is olanzapine, quetiapine, risperidone, ziprasidone, and aripiprazole. However, weight gain can occur with all of these drugs and considerable variability exists among patients receiving the same drug regarding the risk of metabolic effects. Anti-psychotic agents not only increase the risk of metabolic disorder, they also increase the risk of CVA, akathisia, and movement disorders including EPS or tardive dyskinesia (more common with first generation antipsychotics) and more. Medication Management and Follow-Up - Plan: - Schedule follow-up appointments every 2-3 months to monitor the patient's response to the medication regimen. - Reinforce the importance of avoiding recreational drug use due to potential neurotoxicity and interactions with prescribed medications. schedule therapy educated patient not able to do her ADA forms she will need to see neurologist for her FND 2. 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 Insomnia disorder related to another mental disorder -stable 4. Chronic post-traumatic stress disorder -therapy 5. Long-term drug therapy - 05/16/2024 Generalized anxiety disorder (ICD-10 - F41.1) Generalized Anxiety Disorder: Care Instructions material was published, Learning About Generalized Anxiety Disorder material was published, Learning About Anxiety Disorders material was published, Generalized Anxiety Disorder: Care Instructions material was published, Learning About Generalized Anxiety Disorder material was published, Learning About Anxiety Disorders material was published 1. Bipolar I disorder, most recent episode depression - educated to take rx as prescribed Abilify 10 mg at bedtime continue rx and educated on complaince rx jaleel 05/19 [email or web address] -disorder-marijuana- adhd/ Increase Lamotrigine 200 mg - patient reported depression increase will schedule weekly appointment for next month for increase depression educated on Lamotrigine and watch for rash Lamotrigine lamotrigine has a serious rashes requiring hospitalization and discontinue treatment includingSteven Noble syndrome rare case of toxic epidermal necrolysis and cache related deaths.Incidence with adjunct of epilepsy treatment 0.8% in 2 to 16 years old and 0.3% in adults, bipolarand other mood disorders incidence 0.8% this initial monotherapy and 0.13% as adjunctivetreatment. Other risk factor may include concomitant use of valproate acid derivative or exceeding initiallamotrigine does or does as clinician recommendation; most life-threatening rash of occurring first 2to 8 week of treatment with isolated cases after prolonged treatment; though benign may occur,discontinue treatment at first sign of rash unless clearly not a drug related; TC treatment may notprevent trash from becoming life-threatening or permanently disabling or disfiguring.Comment reaction include, nausea/vomiting, dizziness/vertigo, visual disturbances, somnolence,ataxia, pruritus/rash, pharyngitis, headache, rhinitis, diarrhea, fever, asthenia, insomnia, tremor,abdominal pain, cough, accidental injury, constipation, dysmenorrhea, incoordination, anxiety,seizures, irritability, anorexia, xerostomia, and photosensitivity.Ser ious reactions include: Rash, severe; Stuart Noble syndrome; toxic epidermal necrosis;injury edema, hypersensitivity reactions. Including fatal, multiple organ failure to safe fatal, rash witheosinophilia systemic symptoms, DIC, neutropenia, leukopenia, thrombocytopenia, pancytopenia,aplasti c anemia, hemolytic anemia, i pancreatitis, hepatic failure, rhabdomyolysis, worsening ofsuicidal ideation, worsening of depression, cleft lip/palate [first trimester use]DO not Change Cosmetic, perfumes or soap for next 4 weeks.The patient was advice to take lamotrigine as prescribed the patient was instructed not to deviatefrom the prescription dosages. Stop lamotrigine is the first sign of rash. Patient was insisted to informoffice if any of the serious side effect develops. educated on not drinking ETOH on medications educated on compliance on all medications educated on all medications, benefits, side effects and risk, and educated on depression, anxiety, and ADHD, mood d/o and educated on compliance of medications, metabolic and movement d/o education appointment is, continue therapy discussion with patient about course of treatment and patient instructions. education on serotonin syndrome SSRI/SNRI side effects discussed including but not limited to, gastric upset, nausea, vomiting, diarrhea and/or constipation, weight changes, sexual side effects including loss of libido, increased suicidal thoughts/behaviors in children and young adults, and serotonin syndrome. Second generation antipsychotics (SGAs) have metabolic syndrome issues with weight gain, increase in prolactin, increased waist circumference, increased lipids, and increased glucose. Thus routine monitoring of weight, metabolic labs, etc. is indicated. A general rank ordering of antipsychotics that have the greatest to the least risk of metabolic effects is olanzapine, quetiapine, risperidone, ziprasidone, and aripiprazole. However, weight gain can occur with all of these drugs and considerable variability exists among patients receiving the same drug regarding the risk of metabolic effects. Anti-psychotic agents not only increase the risk of metabolic disorder, they also increase the risk of CVA, akathisia, and movement disorders including EPS or tardive dyskinesia (more common with first generation antipsychotics) and more. Medication Management and Follow-Up - Plan: - Schedule follow-up appointments every 2-3 months to monitor the patient's response to the medication regimen. - Reinforce the importance of avoiding recreational drug use due to potential neurotoxicity and interactions with prescribed medications. schedule therapy educated patient not able to do her ADA forms she will need to see neurologist for her FND 2. 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 Insomnia disorder related to another mental disorder -stable 4. Chronic post-traumatic stress disorder -therapy 5. Long-term drug therapy - 05/16/2024 Insomnia due to other mental disorder (ICD-10 - F51.05) 1. Bipolar I disorder, most recent episode depression - educated to take rx as prescribed Abilify 10 mg at bedtime continue rx and educated on complaince rx jaleel 05/19 [email or web address] -disorder-marijuana- adhd/ Increase Lamotrigine 200 mg - patient reported depression increase will schedule weekly appointment for next month for increase depression educated on Lamotrigine and watch for rash Lamotrigine lamotrigine has a serious rashes requiring hospitalization and discontinue treatment includingSteven Noble syndrome rare case of toxic epidermal necrolysis and cache related deaths.Incidence with adjunct of epilepsy treatment 0.8% in 2 to 16 years old and 0.3% in adults, bipolarand other mood disorders incidence 0.8% this initial monotherapy and 0.13% as adjunctivetreatment. Other risk factor may include concomitant use of valproate acid derivative or exceeding initiallamotrigine does or does as clinician recommendation; most life-threatening rash of occurring first 2to 8 week of treatment with isolated cases after prolonged treatment; though benign may occur,discontinue treatment at first sign of rash unless clearly not a drug related; TC treatment may notprevent trash from becoming life-threatening or permanently disabling or disfiguring.Comment reaction include, nausea/vomiting, dizziness/vertigo, visual disturbances, somnolence,ataxia, pruritus/rash, pharyngitis, headache, rhinitis, diarrhea, fever, asthenia, insomnia, tremor,abdominal pain, cough, accidental injury, constipation, dysmenorrhea, incoordination, anxiety,seizures, irritability, anorexia, xerostomia, and photosensitivity.Ser ious reactions include: Rash, severe; Stuart Noble syndrome; toxic epidermal necrosis;injury edema, hypersensitivity reactions. Including fatal, multiple organ failure to safe fatal, rash witheosinophilia systemic symptoms, DIC, neutropenia, leukopenia, thrombocytopenia, pancytopenia,aplasti c anemia, hemolytic anemia, i pancreatitis, hepatic failure, rhabdomyolysis, worsening ofsuicidal ideation, worsening of depression, cleft lip/palate [first trimester use]DO not Change Cosmetic, perfumes or soap for next 4 weeks.The patient was advice to take lamotrigine as prescribed the patient was instructed not to deviatefrom the prescription dosages. Stop lamotrigine is the first sign of rash. Patient was insisted to informoffice if any of the serious side effect develops. educated on not drinking ETOH on medications educated on compliance on all medications educated on all medications, benefits, side effects and risk, and educated on depression, anxiety, and ADHD, mood d/o and educated on compliance of medications, metabolic and movement d/o education appointment is, continue therapy discussion with patient about course of treatment and patient instructions. education on serotonin syndrome SSRI/SNRI side effects discussed including but not limited to, gastric upset, nausea, vomiting, diarrhea and/or constipation, weight changes, sexual side effects including loss of libido, increased suicidal thoughts/behaviors in children and young adults, and serotonin syndrome. Second generation antipsychotics (SGAs) have metabolic syndrome issues with weight gain, increase in prolactin, increased waist circumference, increased lipids, and increased glucose. Thus routine monitoring of weight, metabolic labs, etc. is indicated. A general rank ordering of antipsychotics that have the greatest to the least risk of metabolic effects is olanzapine, quetiapine, risperidone, ziprasidone, and aripiprazole. However, weight gain can occur with all of these drugs and considerable variability exists among patients receiving the same drug regarding the risk of metabolic effects. Anti-psychotic agents not only increase the risk of metabolic disorder, they also increase the risk of CVA, akathisia, and movement disorders including EPS or tardive dyskinesia (more common with first generation antipsychotics) and more. Medication Management and Follow-Up - Plan: - Schedule follow-up appointments every 2-3 months to monitor the patient's response to the medication regimen. - Reinforce the importance of avoiding recreational drug use due to potential neurotoxicity and interactions with prescribed medications. schedule therapy educated patient not able to do her ADA forms she will need to see neurologist for her FND 2. 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 Insomnia disorder related to another mental disorder -stable 4. Chronic post-traumatic stress disorder -therapy 5. Long-term drug therapy - 05/16/2024 Post-traumatic stress disorder, chronic (ICD-10 - F43.12) Post-Traumatic Stress Disorder (PTSD): Care Instructions material was published, Post-Traumatic Stress Disorder (PTSD): Care Instructions material was published 1. Bipolar I disorder, most recent episode depression - educated to take rx as prescribed Abilify 10 mg at bedtime continue rx and educated on complaince rx jaleel 05/19 [email or web address] -disorder-marijuana- adhd/ Increase Lamotrigine 200 mg - patient reported depression increase will schedule weekly appointment for next month for increase depression educated on Lamotrigine and watch for rash Lamotrigine lamotrigine has a serious rashes requiring hospitalization and discontinue treatment includingSteven Noble syndrome rare case of toxic epidermal necrolysis and cache related deaths.Incidence with adjunct of epilepsy treatment 0.8% in 2 to 16 years old and 0.3% in adults, bipolarand other mood disorders incidence 0.8% this initial monotherapy and 0.13% as adjunctivetreatment. Other risk factor may include concomitant use of valproate acid derivative or exceeding initiallamotrigine does or does as clinician recommendation; most life-threatening rash of occurring first 2to 8 week of treatment with isolated cases after prolonged treatment; though benign may occur,discontinue treatment at first sign of rash unless clearly not a drug related; TC treatment may notprevent trash from becoming life-threatening or permanently disabling or disfiguring.Comment reaction include, nausea/vomiting, dizziness/vertigo, visual disturbances, somnolence,ataxia, pruritus/rash, pharyngitis, headache, rhinitis, diarrhea, fever, asthenia, insomnia, tremor,abdominal pain, cough, accidental injury, constipation, dysmenorrhea, incoordination, anxiety,seizures, irritability, anorexia, xerostomia, and photosensitivity.Ser ious reactions include: Rash, severe; Stuart Noble syndrome; toxic epidermal necrosis;injury edema, hypersensitivity reactions. Including fatal, multiple organ failure to safe fatal, rash witheosinophilia systemic symptoms, DIC, neutropenia, leukopenia, thrombocytopenia, pancytopenia,aplasti c anemia, hemolytic anemia, i pancreatitis, hepatic failure, rhabdomyolysis, worsening ofsuicidal ideation, worsening of depression, cleft lip/palate [first trimester use]DO not Change Cosmetic, perfumes or soap for next 4 weeks.The patient was advice to take lamotrigine as prescribed the patient was instructed not to deviatefrom the prescription dosages. Stop lamotrigine is the first sign of rash. Patient was insisted to informoffice if any of the serious side effect develops. educated on not drinking ETOH on medications educated on compliance on all medications educated on all medications, benefits, side effects and risk, and educated on depression, anxiety, and ADHD, mood d/o and educated on compliance of medications, metabolic and movement d/o education appointment is, continue therapy discussion with patient about course of treatment and patient instructions. education on serotonin syndrome SSRI/SNRI side effects discussed including but not limited to, gastric upset, nausea, vomiting, diarrhea and/or constipation, weight changes, sexual side effects including loss of libido, increased suicidal thoughts/behaviors in children and young adults, and serotonin syndrome. Second generation antipsychotics (SGAs) have metabolic syndrome issues with weight gain, increase in prolactin, increased waist circumference, increased lipids, and increased glucose. Thus routine monitoring of weight, metabolic labs, etc. is indicated. A general rank ordering of antipsychotics that have the greatest to the least risk of metabolic effects is olanzapine, quetiapine, risperidone, ziprasidone, and aripiprazole. However, weight gain can occur with all of these drugs and considerable variability exists among patients receiving the same drug regarding the risk of metabolic effects. Anti-psychotic agents not only increase the risk of metabolic disorder, they also increase the risk of CVA, akathisia, and movement disorders including EPS or tardive dyskinesia (more common with first generation antipsychotics) and more. Medication Management and Follow-Up - Plan: - Schedule follow-up appointments every 2-3 months to monitor the patient's response to the medication regimen. - Reinforce the importance of avoiding recreational drug use due to potential neurotoxicity and interactions with prescribed medications. schedule therapy educated patient not able to do her ADA forms she will need to see neurologist for her FND 2. 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 Insomnia disorder related to another mental disorder -stable 4. Chronic post-traumatic stress disorder -therapy 5. 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 Bipolar I disorder, most recent episode depression - educated to take rx as prescribed Abilify 10 mg at bedtime continue rx and educated on complaince rx jaleel 05/19 [email or web address] Increase Lamotrigine 200 mg - patient reported depression increase will schedule weekly appointment for next month for increase depression educated on Lamotrigine and watch for rash Lamotrigine lamotrigine has a serious rashes requiring hospitalization and discontinue treatment includingSteven Noble syndrome rare case of toxic epidermal necrolysis and cache related deaths.Incidence with adjunct of epilepsy treatment 0.8% in 2 to 16 years old and 0.3% in adults, bipolarand other mood disorders incidence 0.8% this initial monotherapy and 0.13% as adjunctivetreatment. Other risk factor may include concomitant use of valproate acid derivative or exceeding initiallamotrigine does or does as clinician recommendation; most life-threatening rash of occurring first 2to 8 week of treatment with isolated cases after prolonged treatment; though benign may occur,discontinue treatment at first sign of rash unless clearly not a drug related; TC treatment may notprevent trash from becoming life-threatening or permanently disabling or disfiguring.Comment reaction include, nausea/vomiting, dizziness/vertigo, visual disturbances, somnolence,ataxia, pruritus/rash, pharyngitis, headache, rhinitis, diarrhea, fever, asthenia, insomnia, tremor,abdominal pain, cough, accidental injury, constipation, dysmenorrhea, incoordination, anxiety,seizures, irritability, anorexia, xerostomia, and photosensitivity.Ser ious reactions include: Rash, severe; Stuart Noble syndrome; toxic epidermal necrosis;injury edema, hypersensitivity reactions. Including fatal, multiple organ failure to safe fatal, rash witheosinophilia systemic symptoms, DIC, neutropenia, leukopenia, thrombocytopenia, pancytopenia,aplasti c anemia, hemolytic anemia, i pancreatitis, hepatic failure, rhabdomyolysis, worsening ofsuicidal ideation, worsening of depression, cleft lip/palate [first trimester use]DO not Change Cosmetic, perfumes or soap for next 4 weeks.The patient was advice to take lamotrigine as prescribed the patient was instructed not to deviatefrom the prescription dosages. Stop lamotrigine is the first sign of rash. Patient was insisted to informoffice if any of the serious side effect develops. educated on not drinking ETOH on medications educated on compliance on all medications educated on all medications, benefits, side effects and risk, and educated on depression, anxiety, and ADHD, mood d/o and educated on compliance of medications, metabolic and movement d/o education appointment is, continue therapy discussion with patient about course of treatment and patient instructions. education on serotonin syndrome SSRI/SNRI side effects discussed including but not limited to, gastric upset, nausea, vomiting, diarrhea and/or constipation, weight changes, sexual side effects including loss of libido, increased suicidal thoughts/behaviors in children and young adults, and serotonin syndrome. Second generation antipsychotics (SGAs) have metabolic syndrome issues with weight gain, increase in prolactin, increased waist circumference, increased lipids, and increased glucose. Thus routine monitoring of weight, metabolic labs, etc. is indicated. A general rank ordering of antipsychotics that have the greatest to the least risk of metabolic effects is olanzapine, quetiapine, risperidone, ziprasidone, and aripiprazole. However, weight gain can occur with all of these drugs and considerable variability exists among patients receiving the same drug regarding the risk of metabolic effects. Anti-psychotic agents not only increase the risk of metabolic disorder, they also increase the risk of CVA, akathisia, and movement disorders including EPS or tardive dyskinesia (more common with first generation antipsychotics) and more. Medication Management and Follow-Up - Plan: - Schedule follow-up appointments every 2-3 months to monitor the patient's response to the medication regimen. - Reinforce the importance of avoiding recreational drug use due to potential neurotoxicity and interactions with prescribed medications. schedule therapy educated patient not able to do her ADA forms she will need to see neurologist for her FND 2. 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 Insomnia disorder related to another mental disorder -stable 4. Chronic post-traumatic stress disorder -therapy 5. Long-term drug therapy - Plan Of Treatment Medication Medication Name Sig Start Date Stop Date Notes lamoTRIgine 200 MG 1 tablet Oral Once a day for 30 days d/c 150 mg dose Treatment Notes Assessment Notes Bipolar disorder, current ep isode depressed, mild Bipolar Disorder: Care Instructions material was published, Learning About Movement Disorders From Antipsychotic Medicines material was published, Learning About How to Get Help During a Mental Health Crisis material was published, Learning About Long-Acting Injectable Antipsychotic Medicines material was published, Learning About Mood Disorders material was published, Learning About Long-Acting Injectable Antipsychotic Medicines material was published, Learning About How to Get Help During a Mental Health Crisis material was published, Learning About Movement Disorders From Antipsychotic Medicines material was published Generalized anxiety disorder Generalized Anxiety Disorder: Care Instructions material was published, Learning About Generalized Anxiety Disorder material was published, Learning About Anxiety Disorders material was published, Generalized Anxiety Disorder: Care Instructions material was published, Learning About Generalized Anxiety Disorder material was published, Learning About Anxiety Disorders material was published Post-traumatic stress disorder, chronic Post-Traumatic Stress Disorder (PTSD): Care Instructions material was published, Post-Traumatic Stress Disorder (PTSD): Care Instructions material was published 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 M edication Refill: Care Instructions material was published, Medication Refill: Care Instructions material was published Next Appt Details Follow Up: 1 Week, Reason: w rush appt x 4 increase depression and increase Lamotigine Provider Name:Herlinda Arriola , 06/24/2024 04:15:00 PM, [address], [facility] [address], [place], [address], Progress Notes * HARVEY MACHADO RDOB:2000 (24 yo F)Acc No.[id number]:05/16/2024 Patient: Colleen MATTHEWJEETHARVEY R Provider: Karen ARRIOLA PMHNP :2000 A ge:24 Y S ex:Female Date:05/16/2024 Address:[facility] [address] [id number] Subjective: * Chief Complaints: * 1 . Walk in today crisis. * HPI: H istory of Presenting Problem: follow up depression, anxiety, sleep chronic reported Lamotrigine was increase last month been better I started therapy and brought up past and trauma and depression and suicidal thoughts and scary and I do not want to feel like this and I been in depression, tearful today I have not been sleeping best and I notice last 2 weeks hard, and I am afraid therapy will get harder and unsure how to get though it, I feel better when leave therapy and the aftermath of therapy, like I can not take it back what discuss, increase anxiety and depression, I feel like I am spiraling, and hard to wheel self back in I know make me better, I am sleeping 3-4 hours, I am having nightmares and flashbacks and hard to fall asleep, I am scared something bad will happen if go to sleep, appetite not good less, weight gained, I am trying not to back track and 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 I feel like I need to stay still where I am at and opportunity will come to me and not making money, I feel a lot ad, down, hopeless and helpless, anxious, restless, and c oncentration and focus not greatest and I feel like if not moving around I will sit in thoughts so I stay busy, and I feel defeated with world, no hypomnia, or m brooke no psychosis, no SI/HI no plan or intent, no s/e rx and no abnormal movements reportd or noted, I been taking all rx, I started menses last ady also and not helped and cause depression, 05/10/24 and also had therapy that day. I want to see [facility] provider weekly after therapy to help me until I get though this. Mom is doing really good and proud of her in PT now. Therapy every week on Thursday I have biopsy for oraries and uterues, [facility] and Dr. Cheryl Restrepo RECRUITMENT CONSULTANT refer me there? reported had biopsy dxn - endometerosis and adenomysosis Colleen (best friend and lives at their house since 04/18) saw neurologist and FND (functional neurological disorder) CBT - patient educated no control substance of use cannabis will do random UDS FND dxn denies SI/HI no plans or intent , no passive thoughts, no thoughts harm to self or others, hx self cutting mom- lymphoma neurologist hx therapy schedule HX suicide thoughts for relief and happiness to be I feel I am already and walking around , I had a plan and intent before none now, denies SI/HI no plans or intent today hx had suicide thoughts and I cut to cut out the pain, thighs, I think about what I would write on note and how and where I would do it, past attempts x2, OD on Jhoana and other drugs 08/31/2016 and hanging 03/14/19. [facility], ETOH occasional smoking vapor I am trying to stop vaping and smoking cannabis labs [facility] [place] BCP implant removed 07/29/23 Dr. 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 PNEUMATIC - was placed on BCP seen RECRUITMENT CONSULTANT 08/20/23- only take estrogen no progesterone BCP- SCHEDULE TO SEE RECRUITMENT CONSULTANT menses 05/21 DRUGS , cannabis dispensary- reported cut back HX drug use sober 12/2019 seizure- last one 03/2020 HX pseudo- SEIZURES, Asthma friend commit suicide x 2 friends Notes:mom trigger when talk about mental health and mom has lymphoma PTSD Context: f riends commit suicide Notes:friend committed suicide 05/21/2017 birthday [birth year][address] with Xochilt and Mayela and her dad mom Lymphoma Suicide AssessmentReported by yobany lawrence.Severity: s evere Spectrum: t ransient suicidal ideation; obsessional suicidal thought; #2 of suicidal attempts; current behavior/attempts; previous hospitalization for psychiatric condition denies SI/HI no plans or intent , no passive thoughts, no thoughts harm to self or others, hx self cutting friends committed no weapons in home SI/HI no plans or intent passive thoughts chronic stable cutting over 1 year ago anniversary friend weekend 08/11. D epression Screening: MITZI-7 (2018 Edition) F eeling nervous, anxious, or on edge?Nearly every day, N ot being able to stop or control worrying N early every day, W orrying too much about different things N early every day, T rouble relaxing N early every day, B eing so restless that it is hard to sit still N early every day, B ecoming easily annoyed or irritable N early every day, F eeling afraid as if something awful might happen N early every day, T otal MITZI-7 Score 2 1, I f you checked any problems, how difficult have they made it for you to do your work, take care of things at home, or get along with other people? V jose difficult, I nterpretation of Total ( 15 and over) Severe. D epression screening: PHQ-9 L ittle interest or pleasure in doing things N early every day, F eeling down, depressed, or hopeless N early every day, T rouble falling or staying asleep, or sleeping too much N early every day, F eeling tired or having little energy N early every day, P oor appetite or overeating N early every day, F eeling bad about yourself or that you are a failure, or have let yourself or your family down N early every day, T rouble concentrating on things, such as reading the newspaper or watching television?Nearly every day, M oving or speaking so slowly that other people could have noticed; or the opposite, being so fidgety or restless that you have been moving around a lot more than usual N early every day, T houghts that you would be better off or of hurting yourself in some way S everal days (Consider Suicide Assessment Risk), T otal Score 2 5, I nterpretation S evere Depression. I ntervention D epression Screening Findings P ositve, F ollow-Up for Depression M entnd health treatment assessment, Patient follow-up to return when and if necessary, S uicide Risk Assessment Performed , A dditional Evaluation for Depression P sychiatric interview and evaluation, N amandeep of the standardized tool used for adult depression screening: Yobany howard Health Questionnaire (PHQ-9). * ROS: N ose:: a llergies. P atient reports no constipation b ut reports no abdominal pain, no nausea, no vomiting, fair appetite, and no GERD. no diarrhea She reports no arthralgias/joint pain and neck pain b ut reports no muscle aches, no muscle weakness, reported back pain, no swelling in the extremities, and no difficulty walking. She reports s eizures (pseudo seizure hx) and migraines b ut reports no loss of consciousness, no weakness, no numbness, no dizziness, no tremor, no gait dysfunction, and no paralysis; functional neurological d/o- [facility] clinic. She reports depression and anxiety b ut reports sleep disturbances, no alcohol abuse, no hallucinations, no suicidal thoughts, no mood swings, memory loss, no agitation, She reports no fever, no significant weight gain, and no significant weight loss. She reports wears glasses/contact lenses. She reports no chest pain, no shortness of breath , no palpitations, no known heart murmur, and no ankle swelling. She reports no cough She reports no incontinence, no difficulty urinating, no hematuria, and no increased frequency. She reports fatigue. * Medical History: P allen: Attention deficit hyperactivity disorder, combined type, Bipolar I disorder, most recent episode depression, Cannabis dependence, continuous, Cannabis therapy, Chronic post-traumatic stress disorder, Easy bruising, Generalized anxiety disorder, History of SARS-CoV-2, Insomnia disorder related to another mental disorder, Long-term drug therapy, Mild recurrent major depression, Mixed bipolar I disorder, Moderate bipolar disorder, Self-injurious behavior, Severe recurrent major depression, Suicidal thoughts, Unable to concentrate, ,, Bipolar I disorder, most recent episode depression - Onset: 12/16/2022 Cannabis dependence, continuous - Onset: 12/16/2022 Mixed bipolar I disorder - Onset: 06/09/2022 Easy bruising - Onset: 10/29/2021 Cannabis therapy - Onset: 09/24/2021 Attention deficit hyperactivity disorder, combined type - Onset: 06/14/2021 History of SARS-CoV-2 - Onset: 04/13/2021 Unable to concentrate - Onset: 05/06/2021 Mild recurrent major depression - Onset: 10/05/2020 Long-term drug therapy - Onset: 05/21/2020 Moderate bipolar disorder - Onset: 05/18/2020 Self-injurious behavior - Onset: 04/30/2020 Chronic post- traumatic stress disorder - Onset: 04/24/2020 Suicidal thoughts - Onset: 04/24/2020 Insomnia disorder related to another mental disorder - Onset: 04/24/2020 Generalized anxiety disorder - Onset: 04/24/2020 Severe recurrent major depression - Onset: 04/24/2020. * Medications: T carlos lamoTRIgine 150 MG Tablet 1 tablet Oral Once a day , Notes to Pharmacist: d/c 100 mg dose, Taking ARIPiprazole 10 MG Tablet 1 tablet Oral Once a day , Taking hydrOXYzine HCl 10 MG Tablet 1 tablet Orally three times a day As needed, Medication List reviewed and reconciled with the patient * Allergies: T REE NUT: Allergy - Onset Date 08/21/2023, Lexapro: Allergy - Onset Date 08/21/2023, Omnicef: Allergy - Onset Date 08/21/2023. Objective: * Vitals: B P:149/87mm Hg, Ht: 64.00 in, Ht-cm: 162.56 cm. * Examination: P sychiatry: Appearance: w ell-groomed, well-nourished, appears stated age, thin. Abnormal body movements: n one. Affect / mood: s ad, tearful, depressed, apathetic, anxious. Aggression: l ow. Anger control: g ood. Attention: g ood. Attitude: c ooperative. Gait s teady. Homicidal ideation: n one. Suicidal ideation: n one. Memory status: n o impairment. Degree of awareness of surroundings: w ithin normal limits.? Delusions: n o. Hallucinations: n o. Impulse control: f air. Insight: g ood. Intellectual functioning: a verage. Comprehension - Intellectual function: a verage. Judgement: g ood. Orientation: a wake, alert and oriented x 3. Perceptual disorders: n o perceptual disorder noted. Psychomotor activity: w ithin normal range. Sexual impulse control: g ood. Speech / language: a ppropriate pitch/modulation, clear and coherent, normal rate, volume, and articulation (RVR), proper grammar used. Thought content: a ppropriate. Thought process: i ntact. Assessment: * Assessment: 1. B ipolar disorder, current episode depressed, mild - F31.31 (Primary) 2 .?Generalized anxiety disorder - F41.1 3 . I nsomnia due to other mental disorder - F51.05 4 . P ost-traumatic stress disorder, chronic - F43.12 5. O ther group home (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 - Z79.899 1. Bipolar I disorder, most recent episode depression - educated to take rx as prescribed Abilify 10 mg at bedtime continue rx and educated on complaince rx jaleel 05/19 [email or web address] Increase Lamotrigine 200 mg - patient reported depression increase will schedule weekly appointment for next month for increase depression educated on Lamotrigine and watch for rash Lamotrigine lamotrigine has a serious rashes requiring hospitalization and discontinue treatment includingSteven Noble syndrome rare case of toxic epidermal necrolysis and cache related deaths.Incidence with adjunct of epilepsy treatment 0.8% in 2 to 16 years old and 0.3% in adults, bipolarand other mood disorders incidence 0.8% this initial monotherapy and 0.13% as adjunctivetreatment.Other risk factor may include concomitant use of valproate acid derivative or exceeding initiallamotrigine does or does as clinician recommendation; most life-threatening rash of occurring first 2to 8 week of treatment with isolated cases after prolonged treatment; though benign may occur,discontinue treatment at first sign of rash unless clearly not a drug related; TC treatment may notprevent trash from becoming life-threatening or permanently disabling or disfiguring.Comment reaction include, nausea/vomiting, dizziness/vertigo, visual disturbances, somnolence,ataxia, pruritus/rash, pharyngitis, headache, rhinitis, diarrhea, fever, asthenia, insomnia, tremor,abdominal pain, cough, accidental injury, constipation, dysmenorrhea, incoordination, anxiety,seizures, irritability, anorexia, xerostomia, and photosensitivity.Serious reactions include: Rash, severe; Stuart Noble syndrome; toxic epidermal necrosis;injury edema, hypersensitivity reactions. Including fatal, multiple organ failure to safe fatal, rash witheosinophilia systemic symptoms, DIC, neutropenia, leukopenia, thrombocytopenia, pancytopenia,aplastic anemia, hemolytic anemia, i pancreatitis, hepatic failure, rhabdomyolysis, worsening ofsuicidal ideation, worsening of depression, cleft lip/palate [first trimester use]DO not Change Cosmetic, perfumes or soap for next 4 weeks.The patient was advice to take lamotrigine as prescribed the patient was instructed not to deviatefrom the prescription dosages. Stop lamotrigine is the first sign of rash. Patient was insisted to informoffice if any of the serious side effect develops. educated on not drinking ETOH on medications educated on compliance on all medications educated on all medications, benefits, side effects and risk, and educated on depression, anxiety, and ADHD, mood d/o and educated on compliance of medications, metabolic and movement d/o education appointment is, continue therapy discussion with patient about course of treatment and patient instructions. education on serotonin syndrome SSRI/SNRI side effects discussed including but not limited to, gastric upset, nausea, vomiting, diarrhea and/or constipation, weight changes, sexual side effects including loss of libido, increased suicidal thoughts/behaviors in children and young adults, and serotonin syndrome. Second generation antipsychotics (SGAs) have metabolic syndrome issues with weight gain, increase in prolactin, increased waist circumference, increased lipids, and increased glucose. Thus routine monitoring of weight, metabolic labs, etc. is indicated. A general rank ordering of antipsychotics that have the greatest to the least risk of metabolic effects is olanzapine, quetiapine, risperidone, ziprasidone, and aripiprazole. However, weight gain can occur with all of these drugs and considerable variability exists among patients receiving the same drug regarding the risk of metabolic effects. Anti-psychotic agents not only increase the risk of metabolic disorder, they also increase the risk of CVA, akathisia, and movement disorders including EPS or tardive dyskinesia (more common with first generation antipsychotics) and more. Medication Management and Follow-Up - Plan: - Schedule follow-up appointments every 2-3 months to monitor the patient's response to the medication regimen. - Reinforce the importance of avoiding recreational drug use due to potential neurotoxicity and interactions with prescribed medications. schedule therapy educated patient not able to do her ADA forms she will need to see neurologist for her FND 2. 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 Insomnia disorder related to another mental disorder -stable 4. Chronic post-traumatic stress disorder -therapy 5. Long-term drug therapy - Plan: * Treatment: 2. G eneralized anxiety disorder Notes: Generalized Anxiety Disorder: Care Instructions material was published, Learning About Generalized Anxiety Disorder material was published, Learning About Anxiety Disorders material was published, Generalized Anxiety Disorder: Care Instructions material was published, Learning About Generalized Anxiety Disorder material was published, Learning About Anxiety Disorders material was published? 3. P ost-traumatic stress disorder, chronic Notes: Post-Traumatic Stress Disorder (PTSD): Care Instructions material was published, Post-Traumatic Stress Disorder (PTSD): Care Instructions material was published 4. O ther group home (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 Notes: Medication Refill: Care Instructions material was published, Medication Refill: Care Instructions material was published * Procedure Codes: [id number] BEHAV ASSMT W/SCORE & DOCD/STAND INSTRUMENT, 92315 BEHAV ASSMT W/SCORE & DOCD/STAND INSTRUMENT, G9902 Pt scrn tbco and id as user * Preventive Medicine: Counseling: B P Management: P RE-HYPERTENSIVE FOLLOW-UP PLAN: F ollow-up 2 weeks ____, L IFESTYLE RECOMMENDATION: L ifestyle education Recommended Nonpharmacologic Interventions (Lifestyle Modifications) -Weight ReductionA heart-healthy diet , such as Dietary Approaches to Stop Hypertension (DASH) Eating PlanDietary Sodium RestrictionIncreased Physical ActivityModeration in alcohol consumption, R EFERRAL TO ALTERNATIVE / PRIMARY CARE PROVIDER: R eferral to general physician , P HYSICAL ACTIVITY RECOMMENDATION: e ducated on healthy b/p 120/80monitor b/p at homerefer to PCP, Urgent care/ERheart healthy diet and exciselimit salt intakelimit soda intake and caffieneincrease water. C ommunication to patient: C ounseled the Patient on tobacco use; cessation provided 0 05/16/2024 Do not smoke. Nicotine and other chemicals in cigarettes and cigars can cause lung damage. Ask your healthcare provider for information if you currently smoke and need help to quit. E-cigarettes or smokeless tobacco still contain nicotine. Talk to your healthcare provider before you use these products.education on decrease to stopping nicotine products and stop smoking hotline zmqge8-631-Yecn - Yes [place] Tobacco QuitlineCall a Smoking QuitlineThe National Cancer Dawn's Smoking Quitline, (3-177-33X-QUIT)Smokefree.gov, which connects you with your State's Quitline, (6-508-OKFTMHP)[facility] Smoking Quitline, (0-394-IZDVUQA). S moking Cessation counseling done Discuss the importance of quitting smoking,. * Follow Up: 1 Week (Reason: weekly appt x 4 increase depression and increase Lamotigine) * Billing Information: * Visit Code: 70842 OFFICE OUTPATIENT VISIT 25 MINUTES DETAILED HISTORY AND EXAM/MODERATE MEDICAL DECISION MAKING. * Procedure Codes: 30376 BEHAV ASSMT W/SCORE & DOCD/STAND INSTRUMENT. 57502 BEHAV ASSMT W/SCORE & DOCD/STAND INSTRUMENT. G9902 Pt scrn tbco and id as user. * [employer]ER Sign off status: Completed true * Provider: YEIMY VIDES Date: 05/16/2024 Generated for Jorje watson/Hi/Adamransmitting on: 0 06/16/2024 01:44 PM PEANUT [employer]KER History and Physical Notes * HPI (History of Present Illness) Category Sub-Category Detail Notes Category Not es History of Presenting Problem follow up depression, anxiety, sleep chronic reported Lamotrigine was increase last month been better I started therapy and brought up past and trauma and depression and suicidal thoughts and scary and I do not want to feel like this and I been in depression, tearful today I have not been sleeping best and I notice last 2 weeks hard, and I am afraid therapy will get harder and unsure how to get though it, I feel better when leave therapy and the aftermath of therapy, like I can not take it back what discuss, increase anxiety and depression, I feel like I am spiraling, and hard to wheel self back in I know make me better, I am sleeping 3-4 hours, I am having nightmares and flashbacks and hard to fall asleep, I am scared something bad will happen if go to sleep, appetite not good less, weight gained, I am trying not to back track and 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 I feel like I need to stay still where I am at and opportunity will come to me and not making money, I feel a lot ad, down, hopeless and helpless, anxious, restless, and concentration and focus not greatest and I feel like if not moving around I will sit in thoughts so I stay busy, and I feel defeated with world, no hypomnia, or jaleel no psychosis, no SI/HI no plan or intent, no s/e rx and no abnormal movements reportd or noted, I been taking all rx, I started menses last ady also and not helped and cause depression, 05/10/24 and also had therapy that day. I want to see [facility] provider weekly after therapy to help me until I get though this. Mom is doing really good and proud of her in PT now. Therapy every week on Thursday I have biopsy for oraries and uterues, [facility] and Dr. Cheryl Restrepo RECRUITMENT CONSULTANT refer me there reported had biopsy dxn - endometerosis and adenomysosis Colleen (best friend and lives at their house since 04/18) saw neurologist and FND (functional neurological disorder) CBT - patient educated no control substance of use cannabis will do random UDS FND dxn denies SI/HI no plans or intent , no passive thoughts, no thoughts harm to self or others, hx self cutting mom- lymphoma neurologist hx therapy schedule HX suicide thoughts for relief and happiness to be I feel I am already and walking around , I had a plan and intent before none now, denies SI/HI no plans or intent today hx had suicide thoughts and I cut to cut out the pain, thighs, I think about what I would write on note and how and where I would do it, past attempts x2, OD on Jhoana and other drugs 08/31/2016 and hanging 03/14/19. [place] 05/08/2020 [facility], ETOH occasional smoking vapor I am trying to stop vaping and smoking cannabis labs [facility] BCP implant removed 07/29/23 Dr. 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 PNEUMATIC - was placed on BCP seen RECRUITMENT CONSULTANT 08/20/23- only take estrogen no progesterone BCP- SCHEDULE TO SEE RECRUITMENT CONSULTANT menses 05/21 DRUGS , cannabis dispensary- reported cut back HX drug use sober 12/2019 seizure- last one 03/2020 HX pseudo- SEIZURES, Asthma friend commit suicide x 2 friends Notes:mom trigger when talk about mental health and mom has lymphoma PTSD Context: friends commit suicide Notes:friend committed suicide 05/21/2017 birthday 05[address] with Edward and her dad mom Lymphoma Suicide AssessmentReported by patient.Severity: severe Spectrum: transient suicidal ideation; obsessional suicidal thought; #2 of suicidal attempts; current behavior/attempts; previous hospitalization for psychiatric condition denies SI/HI no plans or intent , no passive thoughts, no thoughts harm to self or others, hx self cutting friends committed no weapons in home SI/HI no plans or intent passive thoughts chronic stable cutting over 1 year ago anniversary friend weekend 08/11 Depression screening PHQ-9 Little interest or pleasure in doing things: Nearly every day Feeling down, depressed, or hopeless: Ne viktoriya every day Trouble falling or staying asleep, or sl eeping too much: Nearly every day Feeling tired or having little energy: N early every day Poor appetite or overeating: Nearly ever y day Feeling bad about yourself o r that you are a failure, or have let yourself or your family down: Nearly every day Trouble concentrating on thi ngs, such as reading the newspaper or watching television: Nearly every day Moving or speaking so slowly that other people could have noticed; or the opposite, being so fidgety or restless that you have been moving around a lot more than usual: Nearly every day Thoughts that you would be b saeid off or of hurting yourself in some way: Several days (Consider Suicide Assessment Risk) Total Score: 25 Interpretation: Severe Depression Intervention Depression Screening Findings: P ositve Follow-Up for Depression: [facility] treatment assessment, Patient follow-up to return when and if necessary Suicide Risk Assessment Performed: Additional Evaluation for De pression: Psychiatric interview and evaluation Name of the standardized too l used for adult depression screening:: Patient Health Questionnaire (PHQ-9) Depression Screening MITZI-7 (2018 Edition) Feelin g nervous, anxious, or on edge: Nearly every day Not being able to stop or control worryi ng: Nearly every day Worrying too much about different things : Nearly every day Trouble relaxing: Nearly every day Being so restless that it is hard to sit still: Nearly every day Becoming easily annoyed or irritable: Ne viktoriya every day Feeling afraid as if something awful karson ht happen: Nearly every day Total MITZI-7 Score: 21 If you checked any problems, how difficult have they made it for you to do your work, take care of things at home, or get along with other people?: Very difficult Interpretation of Total: (15 and over) S evere Examination Category Sub-Category Detail Notes Category Not es Psychiatry Appearance: well-groomed, we ll-nourished, appears stated age, thin Attitude: cooperative Psychomotor activity: within normal rang e Abnormal body movements: none Attention: good Degree of awareness of surroundings: wit hin normal limits Orientation: awake, alert and viviane ented x 3 Affect / mood: sad, tearful, depres sed, apathetic, anxious Speech / language: appropriate pitch/mo dulation, clear and coherent, normal rate, volume, and articulation (RVR), proper grammar used Insight: good Judgement: good Thought process: intact Thought content: appropriate Perceptual disorders: no perceptual diso rder noted Aggression: low Anger control: good Suicidal ideation: none Homicidal ideation: none Intellectual functioning: average Impulse control: fair Sexual impulse control: good Memory status: no impairment Delusions: no Hallucinations: no Comprehension - Intellectual function: a verage Gait steady
--- OUTSIDE RECORDS SUMMARY | 2024-06-16 13:45 | XMS_ITS | Clinical Summary ---
Author Organization [facility] Address [address] [place] [address] Care Team Providers Care Waterproofer Helper Name Role Phone Denise Dyson CHIEF OF [employer] Primary Care Provider + Source Comments [facility] [employer],non-owned Affiliates and Associated Physician Practices is amultiple site organization consisting of ambulatory clinics and hospital sitesin [place], [place], [place] and [place]. This disclosure is being madepursuant to the Care Everywhere program and may not contain all information available regarding this patient. Last updated 18.[facility] [employer] Allergies Active Allergy Reactions Criticality Noted Date Comments [place] Oil Anaphylaxis High 02/09/2022 Cefdinir Diarrhea,Urticaria,Other Medium 02/27/2020 Escitalopram Other Medium 02/09/2022 Morphine Other Low 01/27/2023 Combative Prochlorperazine Other Medium 06/27/2020 Reaction: HIVES, Reaction: HIVES, Tree Extract Anaphylaxis High 12/11/2021 Tree Nuts Anaphylaxis High 05/23/2018 Medications * Be aware that medications may not be up to date on this document. Alwaysverify current medications with the patient. Medication Sig Dispensed Refills Start Date End Date Status ALPRAZolam (Xanax) 0.5 MG tablet 01/06/2023 Active ARIPiprazole (Abilify) 10 MG tablet 12/16/2022 Active lamoTRIgine (LaMICtal) 100 MG tablet 12/16/2022 Active PROzac 20 MG capsuleIndications:An xiety with depression 1 (one) capsule 08/21/2023 Active hydrocortisone (Hytone) 2.5 % ointmentIndications:E yelid dermatitis, allergic/contact Apply to affected area 2 times daily 30 g 12/24/2023 Active Active Problems Problem Noted Date Diagnosed Date Bipolar affective disorder 12/24/2023 [facility] current use of therapeutic drug 2023 Insomnia related to another mental disorder 07/27 Body dysmorphic disorder 02/04/2023 Asthma 04/10/2022 02/03/2023 Anxiety with depression 04/10/2022 02/04/20 23 Tobacco use 06/12/2021 02/03/2023 Overview (02/03/2023): Last Assessment & Plan: Encouraged continued attempts at smoking cessation, discussed that the wellbutrin may benefit these attempts Last Assessment & Plan: Encouraged continued attempts at smoking cessation, discussed that the wellbutrin may benefit these attempts Moderate episode of recurrent major depressive d isorder 06/12/2021 02/03/2023 Overview (02/03/2023): Last Assessment & Plan: Continue with care per psychiatry Last Assessment & Plan: Continue with care per psychiatry Endometriosis 06/12/2021 02/03/2023 Overview (02/03/2023): Last Assessment & Plan: Continue with care per chemical handler Last Assessment & Plan: Continue with care per chemical handler Dermatitis 06/12/2021 02/03/2023 Overview (02/03/2023): Last Assessment & Plan: Will add steroid cream bid x 7 days. She was advised f/u in the next week if not improving, sooner if worsening. Last Assessment & Plan: Will add steroid cream bid x 7 days. She was advised f/u in the next week if not improving, sooner if worsening. 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 023 Migraine without aura and wi thout status migrainosus, not intractable 04/23/2020 02/03/2023 Attention disturbance 04/23/2020 02/03/2023 Overview (02/03/2023): Last Assessment & Plan: Continue with care per psychiatry Last Assessment & Plan: Continue with care per psychiatry Food allergy 05/24/2018 02/03/2023 Overview (02/03/2023): Last Assessment & Plan: Present on admission, currently asymptomatic. -Epinephrine 0.3mg IM PRN anaphylaxis Last Assessment & Plan: Present on admission, currently asymptomatic. -Epinephrine 0.3mg IM PRN anaphylaxis Mild intermittent asthma 05/24/2018 023 Overview (02/03/2023): Last Assessment & Plan: Present on admission, currently asymptomatic. -Albuterol PRN Last Assessment & Plan: Present on admission, currently asymptomatic. -Albuterol PRN Cervicalgia 12/02/2016 02/03/2023 Overview (02/03/2023): Last Assessment & Plan: Present on admission. [...] Puncture -Discuss possibility of restarting oral contraceptives Last Assessment & Plan: Present on admission. [...] -Discuss possibility of restarting oral contraceptives Accessory navicular bone of right foot 6 02/03/2023 Resolved Problems Problem Noted Date Diagnosed Date Resolved Date Bipolar affective disorder, currently depressed, mild 08/21/2023 12/24/2023 Weakness of left side of body 04/10/2022 02/03/2023 12/24/2023 History of migraine headaches 04/10/2022 02/03/2023 12/24/2023 Right ear pain 06/12/2021 02/03/2023 12/24/2023 Overview (02/03/2023): Last Assessment & Plan: Advised no drops in ear Advised wearing cotton in ear when showering for the next week Advised adding 500mg tylenol q6h prn pain to current ibuprofen regimen x 3d Advised f/u if not improving or if worsening over the next week Last Assessment & Plan: Advised no drops in ear Advised wearing cotton in ear when showering for the next week Advised adding 500mg tylenol q6h prn pain to current ibuprofen regimen x 3d Advised f/u if not improving or if worsening over the next week Otorrhea of right ear 06/12/2021 02/03/20232023 Overview (02/03/2023): Last Assessment & Plan: Advised no drops in ear Advised wearing cotton in ear when showering for the next week Advised adding 500mg tylenol q6h prn pain to current ibuprofen regimen x 3d Advised f/u if not improving or if worsening over the next week Last Assessment & Plan: Advised no drops in ear Advised wearing cotton in ear when showering for the next week Advised adding 500mg tylenol q6h prn pain to current ibuprofen regimen x 3d Advised f/u if not improving or if worsening over the next week Pain of foot 01/15/2016 02/03/2023 12/24/2023 Immunizations Name Administration Dates Next Due INFLUENZA VACCINE, QUADR. (F LUZONE; FLULAVAL; FLUARIX; AFLURIA QUADRIVALENT; 6MO+), 0.5 ML (IIV4) 05/25/2020,05/25/2018 Family History Medical History Relation Name Comments Other Brother NEPHROTIC SYNDR OME None Known Father None Known Mother Relation Name Status Comments Brother Alive Father Alive Mother Alive Sister Alive Social History Tobacco Use Types Packs/Day Years Used Date Smoking Tobacco: Never Smokeless Tobacco: Never Tobacco Cessation:Counseling Given: No Alcohol Use Standard Drinks/Week Comments Not Currently 0 (1 standard drink = 0.6 oz pur e alcohol) PHQ-2 Answer Date Recorded Patient Health Questionnaire-2 Score 0 12/24/2023 Sex and Gender Information Value Date Recorded Sex Assigned at Not on file Gender Identity Not on file Sexual Orientation Not on file Last Filed Vital Signs Vital Sign Reading Time Taken Comments Blood Pressure 107/72 12/24/2023 12:58 PM CDT Pulse 67 12/24/2023 12:58 PM CDT Temperature 36.4 C (97.6 F) 12/24/2023 12:58 PM CDT Respiratory Rate - - Oxygen Saturation 97% 12/24/2023 12:58 PM CDT Inhaled Oxygen Concentration - - Weight 57.3 kg (126 lb 6.4 oz) 12/24/2023 12:58 PM CDT Height 162.6 cm (5' 4 ) 12/24/2023 12:58 PM CDT Body Mass Index 21.7 12/24/2023 12:58 PM CDT Plan of Treatment Health Maintenance Due Date Last Done Comments HIV SCREENING 2014 HPV VACCINE (1 - 3-dose series) 2014 CHLAMYDIA/GONORRHEA SCREENING 2015 HEPATITIS C SCREENING 04/29/2017 DTAP/TDAP/TD VACCINES (1 - Tdap) 2018 HEPATITIS B VACCINE (1 of 3 - 19+ 3-dose series) 2018 PNEUMOCOCCAL VACCINE (1 of 2 - PCV) 2018 COVID-19 VACCINE (2023-2 5 season) 2023 10/08/2020, 09/17/2020 INFLUENZA VACCINE (#1) 2023 , 05/25/2018 PAP SMEAR 12/26/2024 12/26/2021 ZOSTER VACCINE (1 of 2) 2049 HIB VACCINE Aged Out No longer eligi ble based on patient's age to complete this topic MENINGOCOCCAL (Group B) VACCINE Aged Out No longer eligible b ased on patient's age to complete this topic MENINGOCOCCAL VACCINE Aged Out No pérez kerline eligible based on patient's age to complete this topic Care Teams Waterproofer Helper Relationship Specialty Start Date End Date Denise Dyson, CHIEF OF [employer] [address] [place] [address] PCP - General Nurse Practitioner 03/25/23
--- OUTSIDE RECORDS SUMMARY | 2024-06-16 13:45 | XMS_ITS | Clinical Summary ---
Author Organization [facility] Address [address] [place] [address] Care Team Providers Care Machine Feller Name Role Phone Jennifer Reyes Primary Care Provider [phone] Allergies Active Allergy Reactions Criticality Noted Date Comments Cefdinir Hives,Diarrhea Medium 02/27/2020 Escitalopram Hives Medium 02/09/2022 Morphine Agitation Low 01/27/2023 Combative Prochlorperazine Hives Medium 06/27/2020 Reaction: HIVES, Tree Nuts Anaphylaxis High 05/23/2018 Medications albuterol HFA (PROVENTIL HFA,VENTOLIN HFA,PROAIR HFA) 90 mcg/actuation inhaler Inhale 2 puffs every 6 (six) hours as needed for wheezing Active lamoTRIgine (LaMICtal) 100 mg tablet Take 1 tablet (100 mg total) by mouth nightly 03/15/2021 Active ALPRAZolam (XANAX) 0.5 mg tablet Take by mouth 3 (three) times a day as needed 05/16/2022 Active ARIPiprazole (ABILIFY) 10 mg tablet TAKE 1 TABLET BY MOUTH EVERY DAY AT BEDTIME FOR 30 DAYS 05/15/2022 Active Active Problems Problem Noted Date Diagnosed Date Functional neurological symp gabriel disorder with weakness or paralysis 06/02/2022 Otorrhea of right ear 06/12/2021 Assessment & Plan (06/12/2021 10:35 AM OPERATING ROOM MANAGER): Advised no drops in ear Advised wearing cotton in ear when showering for the next week Advised adding 500mg tylenol q6h prn pain to current ibuprofen regimen x 3d Advised f/u if not improving or if worsening over the next week Otalgia, right 06/12/2021 Assessment & Plan (06/12/2021 10:35 AM OPERATING ROOM MANAGER): Advised no drops in ear Advised wearing cotton in ear when showering for the next week Advised adding 500mg tylenol q6h prn pain to current ibuprofen regimen x 3d Advised f/u if not improving or if worsening over the next week Dermatitis 06/12/2021 Assessment & Plan (06/12/2021 10:36 AM OPERATING ROOM MANAGER): Will add steroid cream bid x 7 days. She was advised f/u in the next week if not improving, sooner if worsening. Tobacco use 06/12/2021 Assessment & Plan (06/12/2021 10:35 AM OPERATING ROOM MANAGER): Encouraged continued attempts at smoking cessation, discussed that the wellbutrin may benefit these attempts Moderate episode of recurrent major depressive d isorder 06/12/2021 Assessment & Plan (06/12/2021 10:36 AM OPERATING ROOM MANAGER): Continue with care per psychiatry Endometriosis 06/12/2021 Assessment & Plan (06/12/2021 10:36 AM OPERATING ROOM MANAGER): Continue with care per explosive ordnance specialist Psychogenic nonepileptic seizure 08/09/2020 Migraine without aura and wi thout status migrainosus, not intractable 04/23/2020 Episodes of decreased attentiveness 04/23/2020 Assessment & Plan (06/12/2021 10:36 AM OPERATING ROOM MANAGER): Continue with care per psychiatry Mild intermittent asthma 05/24/2018 Assessment & Plan (05/24/2018 4:45 AM OPERATING ROOM MANAGER): Present on admission, currently asymptomatic. -Albuterol PRN Multiple food allergies 05/24/2018 Assessment & Plan (05/24/2018 4:47 AM OPERATING ROOM MANAGER): Present on admission, currently asymptomatic. -Epinephrine 0.3mg IM PRN anaphylaxis Cervical pain (neck) 12/02/2016 Assessment & Plan (05/24/2018 4:47 AM OPERATING ROOM MANAGER): Present on admission. Given description as unilateral [...] Accessory navicular bone of right foot 6 Pain of foot 01/15/2016 Resolved Problems Problem Noted Date Diagnosed Date Resolved Date Encounter to establish care 06/12/2021 08/21/2021 Immunizations Immunization Administration Dates Next Due Influenza, Quadrivalent, Spl it, Preservative Free, Intramuscular 05/25/2020,05/25/2018 Influenza, Unspecified 06/12/2021(Deferred: Christiana ent Refused) Pfizer SARS-CoV-2 Monovalent Vaccination (12+ Yrs) PURPLE 10/08/2020,09/17/2020 Surgical History Surgery Date Site/Laterality Comments WISDOM TOOTH EXTRACTION LAPAROSCOPY 06/21/2021 with destruction of endometriosis (Dr. Ahmadi) Medical History Medical History Date Comments Asthma TMJ (temporomandibular joint syndrome) Anxiety Depression Family History Medical History Relation Name Comments Cancer Maternal Grandfather Diabetes Maternal Grandfather Cancer Paternal Grandfather Diabetes Paternal Grandfather Relation Name Status Comments Maternal Grandfather Paternal Grandfather Social History Tobacco Use Types Packs/Day Years Used Date Smoking Tobacco: Some Days Vaping Smokeless Tobacco: Never Tobacco Cessation:Ready to Q uit: Not Asked; Counseling Given: Not Answered Alcohol Use Standard Drinks/Week Comments Yes 0 (1 standard drink = 0.6 oz pure alcohol) 4-6 drinks in one sitting once a month AUDIT-C Answer Date Recorded Q1: How often do you have a drink containing alc ohol? Monthly or less 06/02/2022 Q2: How many drinks containi ng alcohol do you have on a typical day when you are drinking? 1 or 2 06/02/2022 Q3: How often do you have si x or more drinks on one occasion? Never 06/02/2022 PHQ-2 Answer Date Recorded PHQ-2 Total Score (If total score is 3 or more points, staff should administer the PHQ-9) 0 06/12/2021 Hunger Vital Sign Answer Date Recorded Within the past 12 months, y ou worried that your food would run out before you got the money to buy more. Never true 01/28/20 23 Within the past 12 months, t he food you bought just didn't last and you didn't have money to get more. 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 Not on file Not on mihaela e Not on file Obstetrics History Last Filed Vital Signs Vital Sign Reading Time Taken Comments Blood Pressure 108/61 01/27/2023 2:59 PM CDT Pulse 82 01/27/2023 2:59 PM CDT Temperature 37.1 C (98.8 F) 01/27/2023 2:59 PM CDT Respiratory Rate 16 01/27/2023 2:59 PM CDT Oxygen Saturation 99% 06/02/2022 10:15 AM OPERATING ROOM MANAGER Inhaled Oxygen Concentration - - Weight 52.7 kg (116 lb 3.2 oz) 01/27/2023 2:59 P M CDT Height 162.6 cm (5' 4 ) 01/27/2023 2:59 PM CDT Body Mass Index 19.95 01/27/2023 2:59 PM CDT Plan of Treatment Health Maintenance Due Date Last Done Comments Cervical Cancer Screening 1999 Hepatitis C Screening 1999 DTaP/Tdap/Td Vaccine (1 - Tdap) 2010 Varicella Vaccines (1 of 2 - 13+ 2-dose series) 2012 HPV Vaccines (1 - 3-dose series) 2014 Hepatitis B Screening 2017 Regular Well Visit/Exam 18-64 2017 Pneumococcal vaccine <65 (1 of 2 - PCV) 2018 Depression Screening 06/12/2022 06/12/2021 Covid-19 Vaccine ( season) 2023, 09/17/2020 Influenza Vaccine (#1) 2023 05/25/2020, 2018 Insurance [facility] OPEN ACCESS CIGNA OPEN ACCESS AETNA [facility] CIGNA OPEN ACCESS [facility] PLAN [facility] Advance Directives For more information, please contact: [phone] Documents on File Type Date Recorded Patient Manager Mechanical Maintenance Expl anation ADVANCE DIRECTIVE 05/24/2018 12:50 AM * Full Code (Latest Code Status on File) Date Activated Date Inactivated Comments 06/27/2020 8:51 AM 06/30/2020 8:59 PM * Full Code Date Activated Date Inactivated Comments 05/24/2018 2:35 AM 05/25/2018 6:00 PM Care Teams Machine Feller Relationship Specialty Start Date End Date Jennifer Reyes PA PCP - General Chief Of Planning 06/12/21
--- OUTSIDE RECORDS SUMMARY | 2024-06-16 13:45 | XMS_ITS | Clinical Summary ---
Author Organization [facility] Address [address] [place] [address] Phone Care Team Providers Care Shearer Helper Name Role Phone Unavailable Primary Care Provider Unavailabl e Allergies Active Allergy Reactions Criticality Noted Date Comments Adhesive Tape-Silicones Rash Low 01/27/2024 Cefdinir Diarrhea,Hives,Other (See Comments),Unknown High 02/27/2020 Escitalopram Hives High 02/09/2022 Tree Nuts Anaphylaxis,Hives High 05/07/2023 Medications ARIPiprazole (ABILIFY) 10 mg tablet 05/15/2022 Active ALPRAZolam (XANAX) 0.5 mg tablet 11/25/2021 Active lamoTRIgine (LaMICtal) 100 mg tablet 50 mg daily. 03/15/2021 Active FLUoxetine (PROzac) 20 mg capsule TAKE 1 CAPSULE BY MOUTH EVERY DAY IN THE MORNING (DISCONTINUE ESCITALOPRAM ) 10/22/2021 Active albuterol sulfate HFA 90 mcg/actuation aerosol inhaler Take 2 Puffs by inhalation. 06/20/2020 Active hydrOXYzine HCL (ATARAX) 10 mg tablet Take 10 mg by mouth 3 times daily as needed for Itching or Anxiety. Active oxyCODONE (ROXICODONE) 5 mg tabletIndicatio ns:Post-op pain Take 1 Tablet (5 mg) by mouth every 4 hours as needed break-throug h pain. Max Daily Amount: 30 mg 5 Tablet 02/04/2024 1:40 PM CDT 02/04/2024 Active Active Problems No known active problems Encounters Date Type Department Care Team Description 06/15/2024 External Device Data [facility] ABSTRACTION Provider, Abstract 05/25/2024 External Device Data [facility]STRACTION Provider, Abstract 05/19/2024 External Device Data [facility]STRACTION Provider, Abstract from Last 3 Months Social History Tobacco Use Types Packs/Day Years Used Date Smoking Tobacco: Never Passive Smoke Exposure: Never Smokeless Tobacco: Never Alcohol Use Standard Drinks/Week Comments Yes 0 (1 standard drink = 0.6 oz pur e alcohol) monthly Feeling Safe Answer Date Recorded Are you in a relationship wi th someone who hurts you emotionally and/or physically? No 02/04/2024 Food Insecurity Answer Date Recorded Social/Environmental Concerns No concerns Transportation Needs Answer Date Record ed Social/Environmental Concerns No concerns Housing Stability Answer Date Recorded Social/Environmental Concerns No concerns Utility Needs Answer Date Recorded Social/Environmental Concerns No concerns Comments No Sex and Gender Information Value Date Recorded Sex Assigned at Not on file Legal Sex Female 11:48 AM CDT Gender Identity Not on file Sexual Orientation Not on file Last Filed Vital Signs Vital Sign Reading Time Taken Comments Blood Pressure 119/64 02/04/2024 1:51 PM CDT Pulse 76 02/04/2024 1:51 PM CDT Temperature 37 C (98.6 F) 02/04/2024 1:51 PM CDT Respiratory Rate 12 02/04/2024 1:51 PM CDT Oxygen Saturation 100% 02/04/2024 1:51 PM CDT Inhaled Oxygen Concentration - - Weight 56.1 kg (123 lb 9.6 oz) 02/04/2024 9:07 A M CDT Height 162.6 cm (5' 4 ) 02/18/2024 2:36 PM CDT Body Mass Index 21.22 02/04/2024 9:07 AM CDT Plan of Treatment Health Maintenance Due Date Last Done Comments PNEUMOCOCCAL VACCINE 0-64 YE ARS (1 of 2 - PCV) 2005 HPV VACCINES (1 - 3-dose series) 2014 DTAP/TDAP/TD VACCINES (1 - Tdap) 2018 HEPATITIS B VACCINES (1 of 3 - 19+ 3-dose series) 2018 CERVICAL CANCER SCREENING 2020 INFLUENZA VACCINE (#1) 2023 05/25/2020, 2018 COVID-19 Vaccine ( season) 2023, 09/17/2020 Medical Devices Implanted Type Area Communications Station Manager Device Identifier Shelf Expiration Date Model / Serial / Lot Barrier Interceed Adh 3x4in 4350 - [id number] Implanted:Qt y: 1 on 02/04/2024 by Rahul Kilgore MD at [facility] Adhesion Barrier N/A: Pelvis [employer] [id number] 04/26/2028 [id number] / / [id number] Barrier Interceed Adh 3x4in 4350 - [id number] Implanted:Qt y: 1 on 02/04/2024 by Rahul Kilgore MD at [facility] Adhesion Barrier N/A: Pelvis [employer] [id number] 04/26/2028 [id number] / / [id number] Insurance [facility] OPEN ACCESS HMO RX [employer] Advance Directives For more information, please contact: [phone] * Full Code (Latest Code Status on File) Date Activated Date Inactivated Comments 02/04/2024 11:42 AM 02/04/2024 4:01 PM * Full Code Date Activated Date Inactivated Comments 02/04/2024 9:22 AM 02/04/2024 11:42 AM
--- OUTSIDE RECORDS SUMMARY | 2024-06-16 13:45 | XMS_ITS ---
Author Organization [facility] [employer] Address [address] [place] [address] Care Team Providers Care Marketing Forecaster Name Role Phone Herlinda Arriola Unavailable [phone] Allergies Allergen (clinical drug ingredient) Drug/Non Drug Allergy documented on EMR Reaction Allergy Type Onset Date Status TREE NUT (uncoded) Unknown Allergy 08/21/2023 Active escitalopram Lexapro Unknown Drug Allergy 08/21/2023 Act adam Omnicef Unknown Drug Allergy 08/21/2023 Active REASON FOR VISIT follow-up increase Lamotirgine Medications Medication SIG (Take, Route, Fr equency, Duration) Notes Start Date End Date Status hydrOXYzine HCl 10 MG 1 tablet Orally three times a day for 30 days As needed Active lamoTRIgine 200 MG 1 tablet Oral Once a day for 90 days Active ARIPiprazole 10 MG 1 tablet Oral Once a day for 90 days Active Social History Tobacco Use: Social History Observation Description Date Details (start date - stop date) Unknown Sex Assigned At : Social History Observation Description Sex Assigned At Female Sexual History Question Answer Notes Had sex in the past 12 months (vaginal, oral, or anal)? Yes with Men only Tobacco use other than smoking: Question Answer Notes Are you an other tobacco user? Yes e cig Tobacco Control (Standard) Question Answer Notes Tobacco use: Uses tobacco in other forms Additional Findings: Tobacco user e-cigarette AUDIT-C (Standard) Question Answer Notes Did you have a drink contain ing alcohol in the past year? Yes How often did you have six o r more drinks on one occasion in the past year? Less than monthly (1 point) How many drinks did you have on a typical day when you were drinking in the past year? 1 or 2 drinks (0 point) How often did you have a dri nk containing alcohol in the past year? Monthly or less (1 point) Points 2 Interpretation Negative Vital Signs Blood pressure systolic 123 mm Hg 06/02/19 25 Blood pressure diastolic 79 mm Hg 025 Heart Rate 99 /min 06/02/2024 Height 64.00 in 06/02/2024 Weight 129 lbs 06/02/2024 BMI 22.14 kg/m2 06/02/2024 Height-cm 162.56 cm 06/02/2024 Weight-kg 58.51 kg 06/02/2024 Encounters Encounter Location Date Provider Diagnosis [facility] [address] [facility] [address] [place] [address] 06/02/2024 Herlinad Arriola Bipolar disorder, current episode depressed, mild F31.31 ; Generalized anxiety disorder F41.1 ; 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] FND 2. Generalized anxiety disorder -continue medications crystalizer tender PRESCRIBES Xanax - educated to take as [...] disorder -therapy 5. Long-term drug therapy - 06/02/2024 Generalized anxiety disorder (ICD-10 - F41.1) Generalized [...] rx and educated on complaince rx jaleel 1/23 [email or web address] adhd/ Lamotrigine 200 mg - patient reported depression increase will schedule weekly appointment for next month for depression and situational stress educated on Lamotrigine and watch for rash [...] FND 2. Generalized anxiety disorder -continue medications crystalizer tender PRESCRIBES Xanax - educated to take as [...] disorder -therapy 5. Long-term drug therapy - 06/02/2024 Insomnia due to other mental disorder (ICD-10 - F51.05) 1. Bipolar I disorder, most recent episode depression - educated to take rx as prescribed Abilify 10 mg at bedtime continue rx and educated on complaince rx jaleel 05/19 [email or web address]- adhd/ Lamotrigine 200 mg - patient reported depression increase will schedule weekly appointment for next month for depression and situational stress educated on Lamotrigine and watch for rash [...] FND 2. Generalized anxiety disorder -continue medications crystalizer tender PRESCRIBES Xanax - educated to take as [...] disorder -therapy 5. Long-term drug therapy - 06/02/2024 Post-traumatic stress disorder, chronic (ICD-10 - F43.12) Post-Traumatic Stress Disorder (PTSD): Care Instructions material was published, Post-Traumatic Stress Disorder (PTSD): Care Instructions material was published 1. Bipolar I disorder, most recent episode depression - educated to take rx as prescribed Abilify 10 mg at bedtime continue rx and educated on complaince rx jaleel 05/19 [email or web address]- adhd/ Lamotrigine 200 mg - patient reported depression increase will schedule weekly appointment for next month for depression and situational stress educated on Lamotrigine and watch for rash [...] FND 2. Generalized anxiety disorder -continue medications crystalizer tender PRESCRIBES Xanax - educated to take as [...] disorder -therapy 5. Long-term drug therapy - 06/02/2024 Other termite control technician (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 (ICD-10 - Z79.899) Medication Refill: Care Instructions material was published, Medication Refill: Care Instructions material was published 1. Bipolar I disorder, most recent episode depression - educated to take rx as prescribed Abilify 10 mg at bedtime continue rx and educated on complaince rx jaleel 05/19 [email or web address] -[email or web address]-marijuana- adhd/ Lamotrigine 200 mg - patient reported depression increase will schedule weekly appointment for next month for depression and situational stress educated on Lamotrigine and watch for rash [...] FND 2. Generalized anxiety disorder -continue medications crystalizer tender PRESCRIBES Xanax - educated to take as [...] Oral Once a day for 90 days Treatment Notes Assessment Notes Bipolar disorder, current [...] (PTSD): Care Instructions material was published Other termite control technician (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 M edication Refill: Care Instructions material was published, Medication Refill: Care Instructions material was published Next Appt Details Follow Up: 2 Months, Reason: f/u medications Provider Name:Herlinda Arriola , 06/24/2024 04:15:00 PM, [address], [facility] [address], [place], [address], Progress Notes * HARVEY MACHADO RDOB:2000 (24 yo F)Acc No.[id number]:06/02/2024 Patient: Colleen MATTHEWJEETHARVEY R Provider: Karen ARRIOLA PMHNP :2000 A ge:24 Y S ex:Female Date:06/02/2024 Address:[facility] [address] [facility] [id number] Subjective: * Chief Complaints: * 1 . follow-up increase Lamotirgine. * HPI: D epression Screening: MITZI-7 (2018 Edition) F [...] awful might happen N early every day, I f you checked any problems, how difficult have they made it for you to do your work, take care of things at home, or get along with other people? E xtremely difficult, I nterpretation of Total ( 15 and over) Severe. C [place]-Suicide Severity Rating Scale: Suicide Risk (CSRS-screener) i n the past one month Have you wished you were or wished you could go to sleep and not wake up? N o, i n the past one month Have you actually had any thoughts of killing yourself? Y es, H ave you started to work out or worked out the details of how to kill yourself? Do you intend to carry out this plan??No, H ave you had these thoughts and had some intention of acting on them? N o, H ave you been thinking about how you might do this? N o. D epression screening: PHQ-9 L ittle interest or pleasure in doing things N ot at all, F eeling down, depressed, or hopeless M ore than half the days, T rouble falling or staying asleep, or sleeping too much N early every day, F eeling tired or having little energy S everal days, P oor appetite or overeating M ore than half the days, F eeling bad about yourself or that you are a failure, or have let yourself or your family down N ot at all, T rouble concentrating on things, such as reading the newspaper or watching television?Several days, M oving or speaking so slowly that other people could have noticed; or the opposite, being so fidgety or restless that you have been moving around a lot more than usual M ore than half the days, T houghts that you would be better off or of hurting yourself in some way N ot at all, T otal Score 1 1, I nterpretation M oderate Depression. I ntervention D epression Screening Findings P ositsommer F ollow-Up for Depression M ental health treatment assessment, Patient follow-up to return when and if necessary, S uicide Risk Assessment Performed , A dditional Evaluation for Depression P sychiatric interview and evaluation, N amandeep of the standardized tool used for adult depression screening:?Patient Health Questionnaire (PHQ-9). H istory of Presenting Problem: follow up depression, anxiety, sleep chronic reported therapy been really rough and just getting down with a lot stuff and hard to work though and process and I realized before I used everytime I work with a certain person and relationships I turn to ETOH or drugs and I wrote on a board with things going on with what was going on and messed with me and still hooked up with old boyfriend and I am now tryign to work thogh it and not healed from it and hard ot get though it, now hard to be in a relationship now since not ready to date now. mom may come home on home health and I want her to but feel be hard to navigate though it and be her rn coronary care unit afraid I will not have a life and fears I be caring for her rest my life and never have a relationship or move out. 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 Cheryl Restrepo MERCHANDISE MANAGER refer me there? reported had biopsy dxn [...] 08/31/2016 and hanging 03/14/19. [place] 05/08/2020 [facility], ETOH occasional smoking vapor I am trying to stop vaping and smoking cannabis labs [facility] BCP implant removed 07/29/23 Dr. Cheryl Restrepo VISUAL INSPECTOR - was placed on BCP seen MERCHANDISE MANAGER 08/20/23- only take estrogen no progesterone BCP- SCHEDULE TO SEE MERCHANDISE MANAGER menses 05/21 DRUGS , cannabis dispensary- reported [...] 1 year ago anniversary friend weekend 08/11. * ROS: P erformance Met: N ormal blood pressure reading documented, follow-up not required ( G8783) N ose:: a llergies. P atient reports [...] dysfunction, and no paralysis; functional neurological d/o- [facility]. She reports depression and anxiety (situational with mom health) sleep disturbances, no alcohol abuse, no hallucinations, no suicidal thoughts, no mood swings, memory loss, no agitation,? She reports no fever, no significant weight gain, and no significant weight loss. She reports wears glasses/contact lenses. She reports no chest pain, no shortness of breath , no palpitations, no known heart murmur, and no ankle swelling. She reports no cough She reports no incontinence, no difficulty urinating, no hematuria, and no increased frequency. She reports fatigue. * Medical History: Yobany villa: Attention deficit hyperactivity disorder, combined type, Bipolar [...] recurrent major depression - Onset: 04/24/2020. * Social History: T obacco Use: T obacco use other than smoking A re you an other tobacco user? Y es ecig. T obacco Control (Standard) T obacco use: U ses tobacco in other forms, A dditional Findings: Tobacco user e -cigarette. M igrated Social History: M igrated Social History: Alcohol Intake: Occasional 07/10/2020,Tobacco Years: Never smoker 04/24/2020,Smoking Status: 3 06/08/2023. S exual History: S exual History H ad sex in the past 12 months (vaginal, oral, or anal)? Y es, w ith M en only. D rug/Alcohol: D rugs H ave you used drugs other than those for medical reasons in the past 12 months??Yes. C affeine I ntake: m ore than 4 cups per day. D o you smoke marijuana?: Admits. Do you drink alcohol?: Yes. AUDIT-C (Standard) D id you have a drink containing alcohol in the past year? Y es, H ow often did you have six or more drinks on one occasion in the past year? L ess than monthly (1 point), H ow many drinks did you have on a typical day when you were drinking in the past year? 1 or 2 drinks (0 point), H ow often did you have a drink containing alcohol in the past year? M onthly or less (1 point), P oints 2 , I nterpretation N egative. M iscellaneous: A dvance Care Planning A re you your own decision-maker Y es, D o you have Power of Clay Machine Operator for Health or Medical? N o. * Medications: T aking ARIPiprazole 10 MG Tablet 1 tablet Oral Once a day , Taking hydrOXYzine HCl 10 MG Tablet 1 tablet Orally three times a day As needed, Taking lamoTRIgine 200 MG Tablet 1 tablet Oral Once a day , Notes to Pharmacist: d/c 150 mg dose, Medication List reviewed and reconciled with the patient * Allergies: T REE NUT: Allergy - Onset Date 08/21/2023, Lexapro: Allergy - Onset Date 08/21/2023, Omnicef: Allergy - Onset Date 08/21/2023. Objective: * Vitals: B P:123/79mm Hg, HR:99/min, Wt:129lbs, Wt-k.51 kg, Ht: 64.00 in, Ht-cm: 162.56 cm, BMI:22.14Index, Body Surface Area: 1.62. * Examination: P sychiatry: Appearance: w ell-groomed, [...] disorder, chronic - F43.12 5. O ther care home (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 - Z79.899 1. Bipolar I disorder, most recent episode depression - educated to take rx as prescribed Abilify 10 mg at bedtime continue rx and educated on complaince rx jaleel 05/19 [email or web address] L amotrigine 200 mg - patient reported depression increase will schedule weekly appointment for next month for depression and situational stress educated on Lamotrigine and watch for rash [...] FND 2. Generalized anxiety disorder -continue medications crystalizer tender PRESCRIBES Xanax - educated to take as [...] Instructions material was published 4. O ther termite control technician (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 Notes: Medication Refill: Care Instructions material was published, Medication Refill: Care Instructions material was published * Procedure Codes: 9 6127 BEHAV ASSMT W/SCORE & DOCD/STAND INSTRUMENT, G8783 NORMAL BP READING DOC F/U NOT RQR, 65754 BEHAV ASSMT W/SCORE & DOCD/STAND INSTRUMENT, G2211 VISIT COMPLEXITY INHERENT TO ONGOING CARE RELATED TO A PATIENT'S SINGLE, SERIOUS CONDITION OR A COMPLEX CONDITION * Follow Up: 2 Months (Reason: f/u medications) * Billing Information: * Visit Code: 04272 OFFICE OUTPATIENT VISIT 25 MINUTES DETAILED HISTORY AND EXAM/MODERATE MEDICAL DECISION MAKING. * Procedure Codes: 08443 BEHAV ASSMT W/SCORE & DOCD/STAND INSTRUMENT. G8783 NORMAL BP READING DOC F/U NOT RQR. 02935 BEHAV ASSMT W/SCORE & DOCD/STAND INSTRUMENT. G2211 VISIT COMPLEXITY INHERENT TO ONGOING CARE RELATED TO A PATIENT'S SINGLE, SERIOUS CONDITION OR A COMPLEX CONDITION. * NGUAL TRAINER Sign off status: Completed true * Provider: YEIMY VIDES Date: 06/02/2024 Generated for Jorje watson/Hi/eTransmitting on: 06/16/2024 01:45 PM BILINGUAL TRAINER History and Physical Notes * HPI (History of Present Illness) Category Sub-Category Detail Notes Category Not es History of Presenting Problem follow up depression, anxiety, sleep chronic reported therapy been really rough and just getting down with a lot stuff and hard to work though and process and I realized before I used everytime I work with a certain person and relationships I turn to ETOH or drugs and I wrote on a board with things going on with what was going on and messed with me and still hooked up with old boyfriend and I am now tryign to work thogh it and not healed from it and hard ot get though it, now hard to be in a relationship now since not ready to date now. mom may come home on home health and I want her to but feel be hard to navigate though it and be her rn coronary care unit afraid I will not have a life and fears I be caring for her rest my life and never have a relationship or move out. 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 Cheryl Restrepo MERCHANDISE MANAGER refer me there reported had biopsy dxn [...] trying to stop vaping and smoking cannabis [facility] BCP implant removed 07/29/23 Dr. Cheryl Restrepo VISUAL INSPECTOR - was placed on BCP seen MERCHANDISE MANAGER 08/20/23- only take estrogen no progesterone BCP- SCHEDULE TO SEE MERCHANDISE MANAGER menses 05/21 DRUGS , cannabis dispensary- reported [...] Little interest or pleasure in doing things: Not at all Feeling down, depressed, or hopeless: Mo re than half the days Trouble falling or staying asleep, or sl eeping too much: Nearly every day Feeling tired or having little energy: S everal days Poor appetite or overeating: More than h kamran the days Feeling bad about yourself o r that you are a failure, or have let yourself or your family down: Not at all Trouble concentrating on thi ngs, such as reading the newspaper or watching television: Several days Moving or speaking so slowly that other people could have noticed; or the opposite, being so fidgety or restless that you have been moving around a lot more than usual: More than half the days Thoughts that you would be b saeid off or of hurting yourself in some way: Not at all Total Score: 11 Interpretation: Moderate Depression Intervention Depression Screening Findings: P ositve Follow-Up for Depression: [facility] health treatment assessment, Patient follow-up to return [...] awful karson ht happen: Nearly every day If you checked any problems, how difficult have they made it for you to do your work, take care of things at home, or get along with other people?: Extremely difficult Interpretation of Total: (15 and over) S [facility]-Suicide Severity Rating Scale Suicide Risk (CSRS-screener) in the past one month Have you wished you were or wished you could go to sleep and not wake up?: No in the past one month Have y ou actually had any thoughts of killing yourself?: Yes Have you started to work out or worked out the details of how to kill yourself? Do you intend to carry out this plan?: No Have you had these thoughts and had some intention of acting on them?: No Have you been thinking about how you might do this?: No Examination Category Sub-Category Detail Notes Category Not [...]
--- OUTSIDE RECORDS SUMMARY | 2024-06-16 13:45 | XMS_ITS | Clinical Summary ---
Author Organization [facility] Address [address] [place] [address] Care Team Providers Care Primary Teacher Name Role Phone Unavailable Primary Care Provider Unavailabl e Social History Tobacco Use Types Packs/Day Years Used Date Smoking Tobacco: Never Assessed Comments Unknown Sex and Gender Information Value Date Recorded Sex Assigned at Not on file Legal Sex Female 1:46 PM CIVIL PREPAREDNESS COORDINATOR Gender Identity Not on file Sexual Orientation Not on file Plan of Treatment Health Maintenance Due Date Last Done Comments Hepatitis C Virus (HCV) Screening 2000 TdaP Immunization 1999 Human Papillomavirus (HPV) Immunization (1 - 3-dose series) 2014 Hepatitis B Immunization (1 of 3 - 19+ 3-dose series) 2018 Pap Smear 2020 Influenza Immunization (#1) 2023 SARS-COV-2 Immunization ( season) 2023 Respiratory Syncytial Virus (RSV) Immunization (Adult) (1 - 1-dose 75+ series) 2074 Meningococcal Immunization (ACWY) Aged Out No longer eligible based on patient's age to complete this topic Pneumococcal Immunization Combined Aged Out No longer eligible based on patient's age to complete this topic Rotavirus Immunization Aged Out No lo nger eligible based on patient's age to complete this topic
--- OUTSIDE RECORDS SUMMARY | 2024-06-16 13:45 | XMS_ITS | Referral Summary ---
Author Organization [facility] Address [address] [place] [address] Care Team Providers Care Zipper Cutter Name Role Phone Jennifer Reyes Primary Care Provider [phone] Allergies Active Allergy Reactions Criticality Noted Date [...] 06/12/2021 Assessment & Plan (06/12/2021 10:35 AM JAVA GOLDEN GATE DEVELOPER): Advised no drops in ear Advised wearing cotton in ear when showering for the next week Advised adding 500mg tylenol q6h prn pain to current ibuprofen regimen x 3d Advised f/u if not improving or if worsening over the next week Otalgia, right 06/12/2021 Assessment & Plan (06/12/2021 10:35 AM JAVA GOLDEN GATE DEVELOPER): Advised no drops in ear Advised wearing cotton in ear when showering for the next week Advised adding 500mg tylenol q6h prn pain to current ibuprofen regimen x 3d Advised f/u if not improving or if worsening over the next week Dermatitis 06/12/2021 Assessment & Plan (06/12/2021 10:36 AM JAVA GOLDEN GATE DEVELOPER): Will add steroid cream bid x 7 days. She was advised f/u in the next week if not improving, sooner if worsening. Tobacco use 06/12/2021 Assessment & Plan (06/12/2021 10:35 AM JAVA GOLDEN GATE DEVELOPER): Encouraged continued attempts at smoking cessation, discussed that the wellbutrin may benefit these attempts Moderate episode of recurrent major depressive d isorder 06/12/2021 Assessment & Plan (06/12/2021 10:36 AM JAVA GOLDEN GATE DEVELOPER): Continue with care per psychiatry Endometriosis 06/12/2021 Assessment & Plan (06/12/2021 10:36 AM JAVA GOLDEN GATE DEVELOPER): Continue with care per care specialist Psychogenic nonepileptic seizure 08/09/2020 Migraine without aura and wi thout status migrainosus, not intractable 04/23/2020 Episodes of decreased attentiveness 04/23/2020 Assessment & Plan (06/12/2021 10:36 AM JAVA GOLDEN GATE DEVELOPER): Continue with care per psychiatry Mild intermittent asthma 05/24/2018 Assessment & Plan (05/24/2018 4:45 AM JAVA GOLDEN GATE DEVELOPER): Present on admission, currently asymptomatic. -Albuterol PRN Multiple food allergies 05/24/2018 Assessment & Plan (05/24/2018 4:47 AM JAVA GOLDEN GATE DEVELOPER): Present on admission, currently asymptomatic. -Epinephrine 0.3mg IM PRN anaphylaxis Cervical pain (neck) 12/02/2016 Assessment & Plan (05/24/2018 4:47 AM JAVA GOLDEN GATE DEVELOPER): Present on admission. 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 Not on file Not on mihaela e Not on file Last Filed Vital Signs Vital Sign Reading Time Taken Comments Blood Pressure 108/61 01/27/2023 2:59 PM CDT Pulse 82 01/27/2023 2:59 PM CDT Temperature 37.1 C (98.8 F) 01/27/2023 2:59 PM CDT Respiratory Rate 16 01/27/2023 2:59 PM CDT Oxygen Saturation 99% 06/02/2022 10:15 AM JAVA GOLDEN GATE DEVELOPER Inhaled Oxygen Concentration - - Weight 52.7 kg (116 lb 3.2 oz) 01/27/2023 2:59 P M CDT Height 162.6 cm (5' 4 ) 01/27/2023 2:59 PM CDT Body Mass Index 19.95 01/27/2023 2:59 PM CDT Plan of Treatment Not on file Insurance CIGNA OPEN ACCESS CIGNA OPEN ACCESS AETNA [facility] IDPA [facility] OPEN ACCESS [facility] PLAN [facility] Advance Directives For more information, please contact: [phone] Documents on File Type Date Recorded Patient Senior Drafter Expl anation ADVANCE DIRECTIVE 05/24/2018 12:50 AM * Full Code (Latest Code Status on File) Date Activated Date Inactivated Comments 06/27/2020 8:51 AM 06/30/2020 8:59 PM * Full Code Date Activated Date Inactivated Comments 05/24/2018 2:35 AM 05/25/2018 6:00 PM Care Teams Zipper Cutter Relationship Specialty Start Date End Date Jennifer Reyes PA PCP - General Lens Assistant 06/12/21
--- OUTSIDE RECORDS SUMMARY | 2024-06-16 13:45 | XMS_ITS ---
Author Organization [facility] [employer] Address [address] [place] [address] Care Team Providers Care Oracle Forms Developer Name Role Phone Herlinda Arriola Unavailable [phone] Allergies Allergen (clinical drug ingredient) Drug/Non Drug Allergy documented on EMR Reaction Allergy Type Onset Date Status TREE NUT (uncoded) Unknown Allergy 08/21/2023 Active escitalopram Lexapro Unknown Drug Allergy 08/21/2023 Act adam Omnicef Unknown Drug Allergy 08/21/2023 Active REASON FOR VISIT f/u depression Medications Medication SIG (Take, Route, Fr equency, Duration) Notes Start Date End Date Status ARIPiprazole 10 MG 1 tablet Oral Once a day for 90 days Active lamoTRIgine 200 MG 1 tablet Oral Once a day for 90 days Active hydrOXYzine HCl 10 MG 1 tablet Orally three times a day for 30 days As needed Active Social History Tobacco Use: Social History [...] Interpretation Negative Vital Signs Blood pressure systolic 121 mm Hg 06/10/19 25 Blood pressure diastolic 82 mm Hg 025 Heart Rate 97 /min 06/10/2024 Height 64.00 in 06/10/2024 Weight 129 lbs 06/10/2024 BMI 22.14 kg/m2 06/10/2024 Height-cm 162.56 cm 06/10/2024 Weight-kg 58.51 kg 06/10/2024 Encounters Encounter Location Date Provider Diagnosis [facility] [employer] [facility] [address] [place] [address] 06/10/2024 Herlinda Arriola Bipolar disorder, current episode depressed, mild F31.31 ; Generalized anxiety disorder F41.1 ; Insomnia due to other mental disorder F51.05 ; Post-traumatic stress disorder, chronic F43.12 and Other terminal 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 Z79.899 Assessments Encounter Date Diagnosis (ICD Code) Assessment Notes Treatment Notes Treatment Clinical Notes Section Notes 06/10/2024 Bipolar disorder, current episode depressed, mild (ICD-10 [...] and educated on complaince rx jaleel 05/19 [email or web address] -disorder-marijuana- adhd/ Lamotrigine 200 mg - patient reported depression increase will schedule weekly appointment for next month for depression and situational stress no refills needed today educated on Lamotrigine and watch for rash [...] FND 2. Generalized anxiety disorder -continue medications management supervisor PRESCRIBES Xanax - educated to take as [...] disorder -therapy 5. Long-term drug therapy - 06/10/2024 Generalized anxiety disorder (ICD-10 - F41.1) Generalized [...] and educated on complaince rx jaleel 1/23 https://www.Oatmeal/cannabis-use -disorder-marijuana- adhd/ Lamotrigine 200 mg - patient reported depression increase will schedule weekly appointment for next month for depression and situational stress no refills needed today educated on Lamotrigine and watch for rash [...] FND 2. Generalized anxiety disorder -continue medications management supervisor PRESCRIBES Xanax - educated to take as [...] disorder -therapy 5. Long-term drug therapy - 06/10/2024 Insomnia due to other mental disorder (ICD-10 - F51.05) 1. Bipolar I disorder, most recent episode depression - educated to take rx as prescribed Abilify 10 mg at bedtime continue rx and educated on complaince rx jaleel 05/19 https://www.Oatmeal/cannabis-use -disorder-marijuana- adhd/ Lamotrigine 200 mg - patient reported depression increase will schedule weekly appointment for next month for depression and situational stress no refills needed today educated on Lamotrigine and watch for rash [...] FND 2. Generalized anxiety disorder -continue medications management supervisor PRESCRIBES Xanax - educated to take as [...] disorder -therapy 5. Long-term drug therapy - 06/10/2024 Post-traumatic stress disorder, chronic (ICD-10 - F43.12) Post-Traumatic Stress Disorder (PTSD): Care Instructions material was published, Post-Traumatic Stress Disorder (PTSD): Care Instructions material was published 1. Bipolar I disorder, most recent episode depression - educated to take rx as prescribed Abilify 10 mg at bedtime continue rx and educated on complaince rx jaleel 05/19 https://www.Oatmeal/cannabis-use -disorder-marijuana- adhd/ Lamotrigine 200 mg - patient reported depression increase will schedule weekly appointment for next month for depression and situational stress no refills needed today educated on Lamotrigine and watch for rash [...] FND 2. Generalized anxiety disorder -continue medications management supervisor PRESCRIBES Xanax - educated to take as [...] disorder -therapy 5. Long-term drug therapy - 06/10/2024 Other fci (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 (ICD-10 - Z79.899) Medication Refill: Care Instructions material was published, Medication Refill: Care Instructions material was published 1. Bipolar I disorder, most recent episode depression - educated to take rx as prescribed Abilify 10 mg at bedtime continue rx and educated on complaince rx jaleel 05/19 https://www.Oatmeal/cannabis-use -disorder-marijuana- adhd/ Lamotrigine 200 mg - patient reported depression increase will schedule weekly appointment for next month for depression and situational stress no refills needed today educated on Lamotrigine and watch for rash [...] FND 2. Generalized anxiety disorder -continue medications management supervisor PRESCRIBES Xanax - educated to take as [...] Long-term drug therapy - Plan Of Treatment Treatment Notes Assessment Notes Bipolar disorder, current [...] (PTSD): Care Instructions material was published Other fci (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 M edication Refill: Care Instructions material was published, Medication Refill: Care Instructions material was published Next Appt Details Follow Up: 1 Week, Reason: f /u stress Provider Name:Herlinda Arriola , 06/24/2024 04:15:00 PM, [address] [facility] [address], [facility] [address], [place], [address], Progress Notes * HARVEY MACHADO RDOB:2000 (24 yo F)Acc No.[id number]:06/10/2024 Patient: Colleen JONES HARVEY R Provider: Karen ARRIOLA PMHNP :2000 A ge:24 Y S ex:Female Date:06/10/2024 Address:[facility] [address], [place], [id number] Subjective: * Chief Complaints: * 1 . F/u depression. * HPI: D epression Screening: MITZI-7 (2018 [...] go to sleep and not wake up? Y es, i n the past one month Have [...] thinking about how you might do this? Y es. D epression screening: PHQ-9 L ittle interest or pleasure in doing things N ot at all, F eeling down, depressed, or hopeless N ot at all, T rouble falling or staying asleep, or sleeping too much N ot at all, F eeling tired or having little energy N ot at all, P oor appetite or overeating M ore than half the days, F eeling bad about yourself or that you are a failure, or have let yourself or your family down N ot at all, T rouble concentrating on things, such as reading the newspaper or watching television N ot at all, M oving or speaking so slowly that other people could have noticed; or the opposite, being so fidgety or restless that you have been moving around a lot more than usual S everal days, T houghts that you would be better off or of hurting yourself in some way S ever (Consider Suicide Assessment Risk), T otal Score 4 , I nterpretation M inimal Depression. I ntervention D epression Screening Findings N egative, S uicide Risk Assessment Performed? . H istory of Presenting Problem: follow up depression, anxiety, sleep chronic since last visit I was told mom is coming home and I have to prepare for it and I feel likek work not going to be understanding what is going on and I had to change things around with therapy and work, somedays I can not put mental barrier after therapy and work, been a lot, I have to have US endometrosis is flare up and been in a lot pain, I do want to get back on BC implant and monitor hormones and mood. I been thinking negative thoughts and therapy and a lot working though and thoughts if not here and no active thoughts no self cutting, I am not same person as years ago and I have worked though a lot stuff and I do not want to act on thoughts, and I talked to grandma about help with mom and she said not about me, I am working in therapy not to put everything on my plate, h opeless and helpless, anxious, restless, with situation, and how to process it and life flipped upside down in one night, no hypomnia, or m brooke no psychosis, no SI/HI no plan or intent, no s/e rx and no abnormal movements reportd or noted, anxiety and worry keep me awake all night appetite eating and cooking dinner, taking rx, Therapy every week on Thursday I have biopsy for oraries and uterues, [facility] and Dr. Cheryl Restrepo SPRINKLER REPAIR TECHNICIAN refer me there? reported had biopsy dxn [...] 08/31/2016 and hanging 03/14/19. [place] 05/08/2020 [facility], ETOH occasional smoking vapor I am trying to stop vaping and smoking cannabis [facility] BCP implant removed 07/29/23 Dr. Cheryl Restrepo HYSTER MACHINE OPERATOR - was placed on BCP seen SPRINKLER REPAIR TECHNICIAN 08/20/23- only take estrogen no progesterone BCP- SCHEDULE TO SEE SPRINKLER REPAIR TECHNICIAN menses 05/21 DRUGS , cannabis dispensary- reported [...] pressure reading documented, follow-up not required ( G8783)Performance Met: N ormal blood pressure reading documented, follow-up not required ( G8783) N ose:: a llergies. Yobany lawrence reports no constipation b ut reports no [...] and no paralysis; functional neurological d/o- [facility] clinic. She reports depression and anxiety (situational with mom health and coming home next week) sleep disturbances, no alcohol abuse, no hallucinations, [...] es, D o you have Power of Outdoor Landscape Architect for Health or Medical? N o. * Medications: T aking ARIPiprazole 10 MG Tablet 1 tablet Oral Once a day , Taking hydrOXYzine HCl 10 MG Tablet 1 tablet Orally three times a day As needed, Taking lamoTRIgine 200 MG Tablet 1 tablet Oral Once a day , Medication List reviewed and reconciled with the patient * Allergies: T REE NUT: Allergy - Onset Date 08/21/2023, Lexapro: Allergy - Onset Date 08/21/2023, Omnicef: Allergy - Onset Date 08/21/2023. Objective: * Vitals: B P:121/82mm Hg, HR:97/min, Wt:129lbs, Wt-k.51 kg, Ht: 64.00 in, Ht-cm: [...] disorder, chronic - F43.12 5. O ther fci (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 - Z79.899 1. Bipolar I disorder, most recent episode depression - educated to take rx as prescribed Abilify 10 mg at bedtime continue rx and educated on complaince rx jaleel 05/19 [email or web address]-pvx-[email or web address]-marijuana-adhd/ Lamotrigine 200 mg - patient reported depression increase will schedule weekly appointment for next month for depression and situational stress no refills needed today educated on Lamotrigine and watch for rash [...] FND 2. Generalized anxiety disorder -continue medications management supervisor PRESCRIBES Xanax - educated to take as [...] Instructions material was published 4. O ther terminal 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 Notes: Medication Refill: Care Instructions material was published, Medication Refill: Care Instructions material was published * Procedure Codes: 9 6127 BEHAV ASSMT W/SCORE & DOCD/STAND INSTRUMENT, G8783 NORMAL BP READING DOC F/U NOT RQR, 45693 BEHAV ASSMT W/SCORE & DOCD/STAND INSTRUMENT, G8431 CLIN DEPRESSION SCREEN DOC, G8752 MOST RECENT SYSTOLIC BP < 140MM HG, G8754 MOST RECENT DIASTOLIC BP < 90MM HG, G2211 VISIT COMPLEXITY INHERENT TO ONGOING CARE RELATED TO A PATIENT'S SINGLE, SERIOUS CONDITION OR A COMPLEX CONDITION * Preventive Medicine: Counseling: C ommunication to patient: C ounseled the Patient on tobacco use; cessation provided 0 06/10/2024 Date, C ounseled the Patient on smoking cessation; education provided D ate, C ounseled the Patient on smoking effects; education provided D ate. S moking Cessation counseling done Discuss the importance of quitting smoking. * Follow Up: 1 Week (Reason: f/u stress) * Billing Information: * Visit Code: 08511 OFFICE OUTPATIENT VISIT 25 MINUTES DETAILED HISTORY AND EXAM/MODERATE MEDICAL DECISION MAKING. * Procedure Codes: 56855 BEHAV ASSMT W/SCORE & DOCD/STAND INSTRUMENT. G8783 NORMAL BP READING DOC F/U NOT RQR. 35135 BEHAV ASSMT W/SCORE & DOCD/STAND INSTRUMENT. G8431 CLIN DEPRESSION SCREEN DOC. G8752 MOST RECENT SYSTOLIC BP < 140MM HG. G8754 MOST RECENT DIASTOLIC BP < 90MM HG. G2211 VISIT COMPLEXITY INHERENT TO ONGOING CARE RELATED TO A PATIENT'S SINGLE, SERIOUS CONDITION OR A COMPLEX CONDITION. * MACY TECH CUSTOMER SERVICE Sign off status: Completed true * Provider: YEIMY VIDES Date: 06/10/2024 Generated for Jorje watson/Hi/Amena on: 06/16/2024 01:45 PM PHARMACY TECH CUSTOMER SERVICE History and Physical Notes * HPI (History of Present Illness) Category Sub-Category Detail Notes Category Not es History of Presenting Problem follow up depression, anxiety, sleep chronic since last visit I was told ady mom is coming home and I have to prepare for it and I feel likek work not going to be understanding what is going on and I had to change things around with therapy and work, somedays I can not put mental barrier after therapy and work, been a lot, I have to have US endometrosis is flare up and been in a lot pain, I do want to get back on BC implant and monitor hormones and mood. I been thinking negative thoughts and therapy and a lot working though and thoughts if not here and no active thoughts no self cutting, I am not same person as years ago and I have worked though a lot stuff and I do not want to act on thoughts, and I talked to grandma about help with mom and she said not about me, I am working in therapy not to put everything on my plate, hopeless and helpless, anxious, restless, with situation, and how to process it and life flipped upside down in one night, no hypomnia, or jaleel no psychosis, no SI/HI no plan or intent, no s/e rx and no abnormal movements reportd or noted, anxiety and worry keep me awake all night appetite eating and cooking dinner, taking rx, Therapy every week on Thursday I have biopsy for oraries and uterues, [facility] and Dr. Cheryl Restrepo SPRINKLER REPAIR TECHNICIAN refer me there reported had biopsy dxn [...] trying to stop vaping and smoking cannabis [facility] BCP implant removed 07/29/23 Dr. Cheryl Restrepo HYSTER MACHINE OPERATOR - was placed on BCP seen SPRINKLER REPAIR TECHNICIAN 08/20/23- only take estrogen no progesterone BCP- SCHEDULE TO SEE SPRINKLER REPAIR TECHNICIAN menses 05/21 DRUGS , cannabis dispensary- reported [...] at all Feeling down, depressed, or hopeless: No t at all Trouble falling or staying asleep, or sl eeping too much: Not at all Feeling tired or having little energy: N ot at all Poor appetite or overeating: More than h kamran the days Feeling bad about yourself o r that you are a failure, or have let yourself or your family down: Not at all Trouble concentrating on thi ngs, such as reading the newspaper or watching television: Not at all Moving or speaking so slowly that other people could have noticed; or the opposite, being so fidgety or restless that you have been moving around a lot more than usual: Several days Thoughts that you would be b saeid off or of hurting yourself in some way: Several days (Consider Suicide Assessment Risk) Total Score: 4 Interpretation: Minimal Depression Intervention Depression Screening Findings: N egative Suicide Risk Assessment Performed: ____ Depression Screening MITZI-7 (2018 Edition) Feelin g [...] Interpretation of Total: (15 and over) S [facility]-Suicide Severity Rating Scale Suicide Risk (CSRS-screener) in the past one month Have you wished you were or wished you could go to sleep and not wake up?: Yes in the past one month Have y [...] thinking about how you might do this?: Yes Examination Category Sub-Category Detail Notes Category Not [...]
--- OUTSIDE RECORDS SUMMARY | 2024-06-16 13:45 | XMS_ITS | Patient Health Summary ---
Author Organization [facility] Address [address] [place] [address] Care Team Providers Care Forest Engineer Name Role Phone Denise Dyson INVENTORY WORKER-CUSTOMER TRAINER Primary Care Provider + Note from [facility],non-owned Affiliates and Associated Physician Practices is amultiple site organization consisting of ambulatory clinics and hospital sitesin [place], [place], [place] and [place]. This disclosure is being madepursuant to the Care Everywhere program and may not contain all information available regarding this patient. Last updated 18.[facility] Allergies * Glenwood Oil(Anaphylaxis) -High Criticality * Cefdinir(Diarrhea,Urticaria,Other) -Medium Criticality * Escitalopram(Other) -Medium Criticality * Morphine(Other) -Low Criticality * Prochlorperazine(Other) -Medium Criticality * Tree Extract(Anaphylaxis) -High Criticality * Tree Nuts(Anaphylaxis) -High Criticality Medications * Be aware that medications may not be up to date on this document. Alwaysverify current medications with the patient. * ALPRAZolam (Xanax) 0.5 MG tablet(Started 01/06/2023) * ARIPiprazole (Abilify) 10 MG tablet(Started 12/16/2022) * lamoTRIgine (LaMICtal) 100 MG tablet(Started 12/16/2022) * PROzac 20 MG capsule(Started 08/21/2023) 1 (one) capsule * hydrocortisone (Hytone) 2.5 % ointment(Started 12/24/2023) Apply to affected area 2 times daily Active Problems Problem Noted Date Diagnosed Date Bipolar affective disorder 12/24/2023 assisted current use of therapeutic drug 2023 Insomnia related to another mental disorder 07/27 Body dysmorphic disorder 02/04/2023 Asthma 04/10/2022 02/03/2023 Anxiety with depression 04/10/2022 02/04/20 23 Tobacco use 06/12/2021 02/03/2023 Moderate episode of recurrent major depressive d isorder 06/12/2021 02/03/2023 Endometriosis 06/12/2021 02/03/2023 Dermatitis 06/12/2021 02/03/2023 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 023 Migraine without aura and wi thout status migrainosus, not intractable 04/23/2020 02/03/2023 Attention disturbance 04/23/2020 02/03/2023 Food allergy 05/24/2018 02/03/2023 Mild intermittent asthma 05/24/2018 023 Cervicalgia 12/02/2016 02/03/2023 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 (FLUZONE; FLULAVAL; FLUARIX; AFLURIA QUADRIVALENT; 6MO+), 0.5 ML (IIV4)(Given 05/25/2020, 05/25/2018) Social History Tobacco Use Types Packs/Day Years [...] Mass Index 21.7 12/24/2023 12:58 PM CDT Procedures * GLUCOSE - POINT OF CARE (AMB) OK(Performed 02/03/2023) Performed for Dizziness Results * GLUCOSE - POINT OF CARE (AMB) OK (02/03/2023 4:00 PM CDT) Glucose 95 60 - 100 mg/dL Blood BLOOD SPECIMEN / Unknown 02/03/2023 4:00 PM CDT Denise ANTOINE LAB - POINT OF C ARE ORDERABLES Care Teams Forest Engineer Relationship Specialty Start Date End Date Denise Dyson APRN-CNP [address] [place] [address]. [address] [place] [address] PCP - General Nurse Practitioner 03/25/23
--- OUTSIDE RECORDS SUMMARY | 2024-06-16 13:45 | XMS_ITS | Referral Summary ---
Author Organization [facility] (formerly [facility]) Address [address] [facility] [place] [address] Care Team Providers Care Duct Maker Name Role Phone Denise Dyson WINDOWS APPLICATION PACKAGER-DIRECTOR OF REGIONAL SALES Primary Care Provider + Source Comments [facility],non-owned Affiliates and Associated Physician Practices is amultiple site organization consisting of ambulatory clinics and hospital sitesin [place], [place], [place] and [place]. This disclosure is being madepursuant to the Care Everywhere program and may not contain all information available regarding this patient. Last updated 18.[facility] ([facility] Allergies Active Allergy Reactions Criticality Noted Date Comments [place] Oil Anaphylaxis High 02/09/2022 Cefdinir Diarrhea,Urticaria,Other Medium [...] Date Diagnosed Date Bipolar affective disorder 12/24/2023 care home current use of therapeutic drug 2023 Insomnia [...] Assessment & Plan: Continue with care per business continuity management director Last Assessment & Plan: Continue with care per business continuity management director Dermatitis 06/12/2021 02/03/2023 Overview (02/03/2023): Last Assessment [...] AFLURIA QUADRIVALENT; 6MO+), 0.5 ML (IIV4) 05/25/2020,05/25/2018 Social History Tobacco Use Types Packs/Day Years [...] 12/24/2023 12:58 PM CDT Plan of Treatment Not on file Care Teams Duct Maker Relationship Specialty Start Date End Date Denise Dyson, WINDOWS APPLICATION PACKAGER-DIRECTOR OF REGIONAL SALES [address] [place] [id number] PCP - General Nurse Practitioner 03/25/23
--- OUTSIDE RECORDS SUMMARY | 2024-06-16 13:45 | XMS_ITS | Continuity of Care Document ---
Author Organization [facility] Address [address] [place] [address] Phone Care Team Providers Care Assistant Press Operator Name Role Phone Conversion MD, Doctor Unavailable Unavailabl e Allergies, Adverse Reactions, Alerts Substance Reaction Status Criticality No Known Drug Allergies Other Active No I nformation Medications Medication Instructions Dosage Effective Dates (start - stop) Status Comments EPIPEN JR. 0.15MG SYRINGES 1 DIRECTE - Active Advance Directives Directive Yes / No Effective Date File Name No Information Encounters Encounter Description Practice Location Reason(s) For Visit Diagnoses Date Provider Providers [facility] [address], [place], [place], [id number], tel:[phone] Conversion Department No Information 1 Conversion Doctor. [address] [place] [address], [address], . [facility], [address], [place], [id number], tel:[phone] [facility] No Information 8 Noble Gleason. [address] [place] [address], [id number], . tel:[phone] Family History Family Member Type Diagnosis Age At Onset No Information Payers Payer name Insurance type Covered republican ID Authoriza tion(s) No Information Social History Type Description Quantity Date Captured Comments Sex Female Smoking Status No Information Chief Complaint And Reason For Visit No Information Reason For Referral Reason For Referral No Information History Of Present Illness Encounter Date Complaint History Of Prese nt Illness No Information Functional Status Date Functional Assessmen t No Information Instructions Date Instruction Additional Infor mation No Information Assessments Type Assessment Date No Information Patient Care Teams Name Effective Dates (start - stop) Status Members No Information
--- OUTSIDE RECORDS SUMMARY | 2024-06-16 13:45 | XMS_ITS | Clinical Summary ---
Author Organization [facility] Address [facility] [place] [address] Care Team Providers Care De Icer Installer Name Role Phone Brent Rubio MD Primary Care Provider Unav ailable Social History Tobacco Use Types Packs/Day Years Used Date Smoking Tobacco: Never Assessed Comments Unknown Sex and Gender Information Value Date Recorded Sex Assigned at Not on file Legal Sex Female 8:21 PM CDT Gender Identity Not on file Sexual Orientation Not on file Plan of Treatment Health Maintenance Due Date Last Done Comments Cervical Cancer Screening Pa p Smear (Age 21 to 29) Every 3 Years 1999 Cervical Cancer Screening 1999 Annual Physical 2002 HPV Vaccines (1 - 3-dose series) 2014 Hepatitis C 2017 DTaP, Tdap and Td Vaccines ( 1 - Tdap) 2018 Hepatitis B Vaccines (1 of 3 - 19+ 3-dose series) 2018 COVID-19 Vaccine (2023-2 5 season) 2023 Influenza Adult (#1) 2024 Meningococcal B Vaccine Aged Out No l onger eligible based on patient's age to complete this topic Meningococcal Vaccine Aged Out No pérez kerline eligible based on patient's age to complete this topic Pneumococcal Vaccine: Pediat rics (0 to 5 Years) and At-Risk Patients (6 to 64 Years) Aged Out No longer eligible b ased on patient's age to complete this topic RSV Immunizations Under 20 Months Aged Out No longer eligible based on patient's age to complete this topic Care Teams De Icer Installer Relationship Specialty Start Date End Date Brent Rubio MD PCP - General 01/04/16
--- OUTSIDE RECORDS SUMMARY | 2024-06-16 13:45 | XMS_ITS | Encounter Summary ---
Author Organization [facility] Address [address] [place] [address] Care Team Providers Care Geoscience Laboratory Technician Name Role Phone Unavailable Primary Care Provider Unavailabl e Encounter Details Date Type Department Care Team (Late st Contact Info) Description 06/15/2024 External Device Data STL ABSTRACTION Provider, Abstract NO ADDRESS ON FILE Social History Tobacco Use Types Packs/Day Years [...] on file Sexual Orientation Not on file documented as of this encounter Plan of Treatment Not on file documented as of this encounter Visit Diagnoses Not on filedocumented in this encounter
== END 2024-06-16 13:34 | disposition home or self-care (01) ==
LOC: ANHSURGERY 13:36
PROVIDERS: Visit Provider Obstetrics & Gynecology
DX: R10.2 Pelvic and perineal pain (principal)
CPT/HCPCS: 36415; 86850; 86900; 86901

== ENCOUNTER 2024-06-17 09:59 | Day surgery (SDC) | payer OTHER, SELFPAY ==
[2024-06-16 10:15] VITALS: BMI 21.8
--- NOTE | 2024-06-16 10:17 | PC.NURSE ---
Report to the Outpatient Waiting Room, entrance under the green pavilion located off [facility], at time _1000_ on date _[id number]_. Planned Procedure Time: _1200_.? Time changes happen often and if your time is changed the preop area will call you the afternoon before. - You and your visitor will be asked to self-screen and do not enter if you have any COVID symptoms. Please call surgeon if you need to reschedule. - A mask is optional within the hospital at this time. Patients may have clear liquids (water, carbonated beverages, clear teas, apple juice) until 3 hours prior to surgery with a maximum of 20 ounces. - No food from midnight until time of surgery and no smoking, or chewing tobacco (or any form of nicotine). No chewing gum, candy or mints. Take only the following medications with a SIP of water on the morning of surgery: __None____ DO NOT STOP ANY OF YOUR OTHER PRESCRIPTION MEDICATIONS PRIOR TO SURGERY EXCEPT THE FOLLOWING Hold all vitamins and supplements for 3 days per anesthesiologist. Medications to discontinue per physician _None __ Date to take last dose Please no make-up, nail mexican, hairspray, perfume, deodorant, or body powder the day of surgery.? No jewelry (including any body piercings) or valuables the day of surgery, leave them at home.? Please take a shower or bath the night before, or the morning of, surgery with an antibacterial soap.? Wear comfortable, loose fitting clothing.? - Jewelry must be removed prior to entering the operating room.? Rings and piercings that are not removed may be cut off. - The hospital will not accept responsibility for valuables.? - Please leave all valuables, including medications, at home the day of surgery. If you are going home after surgery, a licensed grain combine driver must drive you home.? - NO public transportation without another adult if you receive anesthesia. - We recommend that an adult stay with you for 24 hours following discharge. - We also recommend that you do not drive, make important decision, drink alcoholic beverages, or take any drugs that were not prescribed by your health care provider for at least 24 hours after your discharge time. Follow any additional instructions given to you from your surgeon. Telephone instructions given to __Madeline__and asked if any additional questions and then verbalized understanding. Patient advised to call surgeon office or pre surgery nurse liaison [phone] if any additional questions.
--- NOTE | 2024-06-16 12:39 | P.HP_ITS ---
H&P: HPI History of Present Illness Date/Time: 06/16/24 12:39 Chief Complaint: Pelvic pain and right ovarian cyst Narrative: 24-year-old female admitted for laparoscopy right cystectomy secondary to right ovarian cyst appears to be 3-4 cm in size but she describes the pain as 9/10. Risks and benefits of this procedure reviewed including not exclusive of , aspiration pneumonia, bleeding, transfusion, perforation injury to bowel,, ureters, or other internal organs with need for open laparotomy. She received the ACOG handout entitled laparoscopy. She had all questions answered. She asked to proceed. Review of Systems Review of Systems: All systems reviewed & are unremarkable except as noted in HPI and below Constitutional: Constitutional: Reports no additional constitutional complaints Eyes: Eyes: Reports no additional eye complaints ENT: Reports as per HPI and Reports sore throat Cardiovascular: Cardiovascular: Reports no additional cardiovascular complaints, Denies chest pain and Denies dyspnea Respiratory: Respiratory: Reports no additional respiratory complaints, Denies chest congestion, Denies cough and Denies dyspnea Gastrointestinal: Gastrointestinal: Reports no additional gastrointestinal complaints, Denies abdominal pain, Denies nausea and Denies vomiting Musculoskeletal: Musculoskeletal: Reports no additional musculoskeletal complaints Integumentary/Breasts: Skin/Breast: Reports system reviewed and no additional complaints, except as docu Neurologic: Reports system reviewed and no additional complaints, except as documented Psychiatric: Psychiatric: Reports no additional psychiatric complaints Allergic/Immunologic: Allergic/Immunologic: Reports no additional allergic/immunologic complaints [facility] Past Medical History Medical History History of suicide attempt Depression Endometriosis Asthma Pelvic pain Anxiety Surgical History Surgical History H/O laparoscopy Family History Family History Mother No pertinent past medical history Social History Social History Smoking status: Current some day smoker Tobacco type: e-cigarettes/vaping Alcohol intake: current Alcohol use details: 1-2/MONTH Substance use: current Substance use type: marijuana Other substance usage details: Daily Living arrangements: with family Additional living arrangements comments: MOM Gender identity (if verbalized by the patient): Female Spiritual care concerns: No Meds Home Medications and Allergies Home Medications ?Medication ?Instructions ?Recorded ?Confirmed ?Type aripiprazole 10 mg tablet 10 mg PO HS 06/16/24 06/16/24 History lamotrigine 200 mg tablet 200 mg PO HS 06/16/24 06/16/24 History Allergies Allergy/AdvReac Type Severity Reaction Status Date / Time tree nut Allergy Severe Anaphylaxis Verified 06/16/24 10:07 morphine Allergy Mild Agitated Verified 06/16/24 10:07 cefdinir (From Omnicef) Allergy Hives Verified 06/16/24 10:07 elagolix (From Orilissa) AdvReac Migraine Verified 06/16/24 10:07 escitalopram (From Lexapro) AdvReac Itching Verified 06/16/24 10:07 Exam Const: General: cooperative, healthy appearing and comfortable Nutritional Appearance: average body habitus Orientation/consciousness: oriented to person, oriented to place and oriented to time HENMT: Head: normal to inspection Resp: Effort & Inspection: normal respiratory effort Cardio: Rate: regular rate Rhythm: regular rhythm Heart sounds: S1 normal heart sound present and S2 normal heart sound present GI: Inspection: normal to inspection Percussion: Yes normal to percussion : External Female Exam: normal external appearance Speculum Exam - Vagina: normal appearance of the vagina Speculum Exam - Cervix: normal appearance of the cervix Bimanual exam- vagina & uterus: Uterine tenderness Bimanual Exam- Adnexa, other: tender on the right Assessment and Plan Assessment and plan (1) Pelvic pain: Code(s): R10.2 - Pelvic and perineal pain Status: Acute (2) Right ovarian cyst: Code(s): N83.201 - Unspecified ovarian cyst, right side Status: Acute Plan Proceed with laparoscopic right cystectomy
[2024-06-17] VITALS (13 sets, daily range): BP systolic 90–122; BP diastolic 50–108; PULSE 68–767; RESP 14–22; TEMP 36.6–37.1; O2SAT 94–100
--- NOTE | 2024-06-17 06:27 | WPDHPUPDATE1 ---
History and Physical Update Update Date/Time: 06/17/24 06:27 History and Physical has been reviewed, including an updated exam of the patient. There are NO changes in the patient's condition. Risks, benefits, and alternatives have been discussed and questions answered. Patient agrees to proceed with procedure.
--- OUTSIDE RECORDS SUMMARY | 2024-06-17 10:36 | XMS_ITS | Patient Health Summary ---
Author Organization [facility] Address [address] [facility] [place] [address] Care Team Providers Care Set Up Mechanic Stamping Machines Name Role Phone Denise Dyson FURNACE INSTALLER-DIRECTOR OF COUNTERINTELLIGENCE Primary Care Provider + Note from [facility],non-owned Affiliates and Associated Physician Practices is amultiple site organization consisting of ambulatory clinics and hospital sitesin [place], [place], [place] and [place]. This disclosure is being madepursuant to the Care Everywhere program and may not contain all information available regarding this patient. Last updated 18.[facility] Allergies * [place] Oil(Anaphylaxis) -High Criticality * Cefdinir(Diarrhea,Urticaria,Other) -Medium Criticality [...] Date Diagnosed Date Bipolar affective disorder 12/24/2023 senior care current use of therapeutic drug 2023 Insomnia [...] POINT OF C ARE ORDERABLES Care Teams Set Up Mechanic Stamping Machines Relationship Specialty Start Date End Date Denise Dyson APRN-CNP [address] [place] [address]. [address] [place] [address] PCP - General Nurse Practitioner 03/25/23
--- OUTSIDE RECORDS SUMMARY | 2024-06-17 10:36 | XMS_ITS | Continuity of Care Document ---
Author Organization [facility] Address [address] [facility] [address] [place] [address] Phone Care Team Providers Care Manager Shop Name Role Phone Joan CHOI, Pienda Unavailable Unavailable Allergies, Adverse Reactions, Alerts Substance [...] Encounter [facility], [address] [place] [address], [address] [place] [address], tel:[phone] [facility] No Information 1 Joan Sung. [address] [place] [address], [address] [place] [address] , . tel:[phone] Referring Provider: Scarlet Li, [address] [place] [address], [place], [place], [address] [place] [address] . tel:[phone] [facility], [address] [place] [address], [id number], tel:[phone] [facility] No Information 1 Yazan Novak. [address] [place] [address], [address], [address] [place] [address] , . tel:[phone] Referring Provider: Scarlet Li, [address] [place] [address], [place], [place], [address] [place] [address] . tel:[phone] [facility], [address] [place] [address], [id number], tel:[phone] [facility] No Information 1 Joan Sung. [address] [place] [address], [address], [id number] , . tel:[phone] Referring Provider: Scarlet Li, [address] [place] [address], [place], [address] [place] [address] . tel:[phone] [facility], [address] [place] [address], [id number], tel:[phone] [facility] No Information 1 Steffi [facility] Gurvinder. [address] [facility], [place], [place], [facility], [place]. tel:[phone] Referring Provider: Scarlet Li, [address] [place] [address], [place], [address] . tel:[phone] PREVENTIVE COUNSELING, INDIV [facility], [address] [place] [address], [place], [place], [id number], tel:[phone] [facility] allergy symptoms (chief complaint) Oth adverse food reactions, not elsewhere classified, initAllergy to nuts other than peanutsAsthmaOthe r allergic rhinitis 1 Steffi [facility] Gurvinder. [address] [facility], [place], [place], [facility], [place]. tel:[phone] Referring Provider: Scarlet Li, [address] [place] [address], [place], [address] . tel:[phone] Family History Family Member Type Diagnosis Age At Onset No Information Payers Payer name Insurance type Covered democrat ID Kalen flowers(s) Petey [id number] Social History Type Description Quantity Date Captured Comments Sex Female Smoking Status No Information Chief Complaint And Reason For Visit No Information Reason For Referral Reason For Referral No Information Plan Of Treatment Date Type Action Status Future Order: Lab Order ALMOND I gE (F20) ([id number]), Ordered on: Ordered Future Order: Lab Order [place] N ut IgE W/Component Reflex ([id number]), Ordered on: Ordered Future Order: Lab Order Cas[place] N ut IgE W/Component Reflex ([id number]), Ordered on: Ordered Future Order: Lab Order [place] IgE W/Component Reflex ([id number]), Ordered on: Ordered Future Order: Lab Order IgE, TOT AL ([id number]), Ordered on: Ordered Future Order: Lab Order [place] a IgE (RF345) ([id number]), Ordered on: Ordered Future Order: Lab Order PECAN NU T IgE (F201) ([id number]), Ordered on: Ordered Future Order: Lab Order PISTACHI O NUT IgE (F203) ([id number]), Ordered on: Ordered History Of Present Illness [...] throat feeling. Reports being highly allergic to [place] Nuts. Eats peanut butter routinely.She reports her [...] for this semester. 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 Immunizations UTD without flu shots Functional Status Date Functional Assessmen t No Information Instructions Date Instruction Additional Infor mation No Information Assessments Type Assessment Date No Information Patient Care Teams Name Effective Dates (start - stop) Status Members No Information
--- OUTSIDE RECORDS SUMMARY | 2024-06-17 10:36 | XMS_ITS | Clinical Summary ---
Author Organization [facility] Address [address] [place] [address] Phone Care Team Providers Care Rose Grader Name Role Phone Jennifer Reyes Primary Care Provider [phone] Allergies Active Allergy Reactions Criticality Noted Date [...] Assessment & Plan: Continue with care per donor technician Otalgia of right ear 06/12/2021 Overview (12/11/2021): [...] Vaccine (#1) 2023 05/25/2020, 2018 Care Teams Rose Grader Relationship Specialty Start Date End Date Jennifer Reyes PA PCP - General Family Medicine 01/02/22
--- OUTSIDE RECORDS SUMMARY | 2024-06-17 10:36 | XMS_ITS | Referral Summary ---
Author Organization [facility] Address [address] [facility] [place] [address] Care Team Providers Care Assistant Teacher Name Role Phone Denise Dyson SPOKE MAKER-HAND I BLOCKER Primary Care Provider + Source Comments [facility],non-owned Affiliates and Associated Physician Practices is amultiple site organization consisting of ambulatory clinics and hospital sitesin [place], [place], [place] and [place]. This disclosure is being madepursuant to the Care Everywhere program and may not contain all information available regarding this patient. Last updated 18.[facility] Allergies Active Allergy Reactions Criticality Noted Date Comments [place] Oil Anaphylaxis High 02/09/2022 Cefdinir Diarrhea,Urticaria,Other Medium [...] Date Diagnosed Date Bipolar affective disorder 12/24/2023 group home current use of therapeutic drug 2023 [...] Assessment & Plan: Continue with care per charger operator helper Last Assessment & Plan: Continue with care per charger operator helper Dermatitis 06/12/2021 02/03/2023 Overview (02/03/2023): Last Assessment [...] of Treatment Not on file Care Teams Assistant Teacher Relationship Specialty Start Date End Date Denise Dyson, SPOKE MAKER-HAND I BLOCKER [address] [place] [address] PCP - General Nurse Practitioner 03/25/23
--- OUTSIDE RECORDS SUMMARY | 2024-06-17 10:36 | XMS_ITS | Clinical Summary ---
Author Organization [facility] Address [address] [facility] [place] [address] Care Team Providers Care Commutator Presser Name Role Phone Denise Dyson MANAGING BROKER-PRODUCT/DEVICE TECHNOLOGIST Primary Care Provider + Source Comments [facility],non-owned Affiliates and Associated Physician Practices is amultiple site organization consisting of ambulatory clinics and hospital sitesin [place], [place], [place] and [place]. This disclosure is being madepursuant to the Care Everywhere program and may not contain all information available regarding this patient. Last updated 18.[facility] Allergies Active Allergy Reactions Criticality Noted Date Comments [place] Oil Anaphylaxis High 02/09/2022 Cefdinir Diarrhea,Urticaria,Other Medium [...] Assessment & Plan: Continue with care per manager spa Last Assessment & Plan: Continue with care per manager spa Dermatitis 06/12/2021 02/03/2023 Overview (02/03/2023): Last Assessment [...] age to complete this topic Care Teams Commutator Presser Relationship Specialty Start Date End Date Denise Dyson, MANAGING BROKER-PRODUCT/DEVICE TECHNOLOGIST [address] [facility] [place] [address] PCP - General Nurse Practitioner 03/25/23
--- OUTSIDE RECORDS SUMMARY | 2024-06-17 10:36 | XMS_ITS | Referral Summary ---
Author Organization [facility] Address [address] [place] [address] Care Team Providers Care Bodywork Therapist Name Role Phone Jennifer Reyes Primary Care Provider [phone] Allergies Active Allergy Reactions Criticality Noted Date [...] 06/12/2021 Assessment & Plan (06/12/2021 10:35 AM DISTRICT SALES REPRESENTATIVE): Advised no drops in ear Advised wearing cotton in ear when showering for the next week Advised adding 500mg tylenol q6h prn pain to current ibuprofen regimen x 3d Advised f/u if not improving or if worsening over the next week Otalgia, right 06/12/2021 Assessment & Plan (06/12/2021 10:35 AM DISTRICT SALES REPRESENTATIVE): Advised no drops in ear Advised wearing cotton in ear when showering for the next week Advised adding 500mg tylenol q6h prn pain to current ibuprofen regimen x 3d Advised f/u if not improving or if worsening over the next week Dermatitis 06/12/2021 Assessment & Plan (06/12/2021 10:36 AM DISTRICT SALES REPRESENTATIVE): Will add steroid cream bid x 7 days. She was advised f/u in the next week if not improving, sooner if worsening. Tobacco use 06/12/2021 Assessment & Plan (06/12/2021 10:35 AM DISTRICT SALES REPRESENTATIVE): Encouraged continued attempts at smoking cessation, discussed that the wellbutrin may benefit these attempts Moderate episode of recurrent major depressive d isorder 06/12/2021 Assessment & Plan (06/12/2021 10:36 AM DISTRICT SALES REPRESENTATIVE): Continue with care per psychiatry Endometriosis 06/12/2021 Assessment & Plan (06/12/2021 10:36 AM DISTRICT SALES REPRESENTATIVE): Continue with care per farm mortgage agent Psychogenic nonepileptic seizure 08/09/2020 Migraine without aura and wi thout status migrainosus, not intractable 04/23/2020 Episodes of decreased attentiveness 04/23/2020 Assessment & Plan (06/12/2021 10:36 AM DISTRICT SALES REPRESENTATIVE): Continue with care per psychiatry Mild intermittent asthma 05/24/2018 Assessment & Plan (05/24/2018 4:45 AM DISTRICT SALES REPRESENTATIVE): Present on admission, currently asymptomatic. -Albuterol PRN Multiple food allergies 05/24/2018 Assessment & Plan (05/24/2018 4:47 AM DISTRICT SALES REPRESENTATIVE): Present on admission, currently asymptomatic. -Epinephrine 0.3mg IM PRN anaphylaxis Cervical pain (neck) 12/02/2016 Assessment & Plan (05/24/2018 4:47 AM DISTRICT SALES REPRESENTATIVE): Present on admission. Given description as unilateral [...] on file Legal Sex Female 11:46 PM DISTRICT SALES REPRESENTATIVE Gender Identity Not on file Sexual Orientation [...] CDT Oxygen Saturation 99% 06/02/2022 10:15 AM DISTRICT SALES REPRESENTATIVE Inhaled Oxygen Concentration - - Weight 52.7 kg (116 lb 3.2 oz) 01/27/2023 2:59 P M CDT Height 162.6 cm (5' 4 ) 01/27/2023 2:59 PM CDT Body Mass Index 19.95 01/27/2023 2:59 PM CDT Plan of Treatment Not on file Insurance CIGNA OPEN ACCESS CIGNA OPEN ACCESS AETNA [facility]PA [facility] OPEN ACCESS [facility] Advance Directives For more information, please contact: [phone] Documents on File Type Date Recorded Patient Twist Maker Expl anation ADVANCE DIRECTIVE 05/24/2018 12:50 AM * Full Code (Latest Code Status on File) Date Activated Date Inactivated Comments 06/27/2020 8:51 AM 06/30/2020 8:59 PM * Full Code Date Activated Date Inactivated Comments 05/24/2018 2:35 AM 05/25/2018 6:00 PM Care Teams Bodywork Therapist Relationship Specialty Start Date End Date Jennifer Reyes PA PCP - General Bottom Scrubber 06/12/21
--- OUTSIDE RECORDS SUMMARY | 2024-06-17 10:37 | XMS_ITS | Continuity of Care Document ---
Author Organization [facility] Address [address] [place] [address] Phone Care Team Providers Care Director Nursery School Name Role Phone Conversion MD, Doctor Unavailable [...] Diagnoses Date Provider Providers Copied on [facility], [address], [place], [place], [id number], tel:[phone] Conversion Department No Information 1 Conversion Doctor. [address] [place] [address], [address], . [facility], [address], [place], [id number], tel:[phone] [facility] No Information 8 Noble Gleason. [address] [place] [address], [id number], . tel:[phone] Family History Family Member Type Diagnosis Age At Onset No Information Payers Payer name Insurance type Covered alliance party ID Authoriza tion(s) No Information Social History [...]
--- OUTSIDE RECORDS SUMMARY | 2024-06-17 10:37 | XMS_ITS | Clinical Summary ---
Author Organization [facility] Address [address] [place] [address] Care Team Providers Care Marble Worker Name Role Phone Jennifer Reyes Primary Care Provider [phone] Allergies Active Allergy Reactions Criticality Noted Date [...] 06/12/2021 Assessment & Plan (06/12/2021 10:35 AM PUBLIC MESSAGE SERVICE SUPERVISOR): Advised no drops in ear Advised wearing cotton in ear when showering for the next week Advised adding 500mg tylenol q6h prn pain to current ibuprofen regimen x 3d Advised f/u if not improving or if worsening over the next week Otalgia, right 06/12/2021 Assessment & Plan (06/12/2021 10:35 AM PUBLIC MESSAGE SERVICE SUPERVISOR): Advised no drops in ear Advised wearing cotton in ear when showering for the next week Advised adding 500mg tylenol q6h prn pain to current ibuprofen regimen x 3d Advised f/u if not improving or if worsening over the next week Dermatitis 06/12/2021 Assessment & Plan (06/12/2021 10:36 AM PUBLIC MESSAGE SERVICE SUPERVISOR): Will add steroid cream bid x 7 days. She was advised f/u in the next week if not improving, sooner if worsening. Tobacco use 06/12/2021 Assessment & Plan (06/12/2021 10:35 AM PUBLIC MESSAGE SERVICE SUPERVISOR): Encouraged continued attempts at smoking cessation, discussed that the wellbutrin may benefit these attempts Moderate episode of recurrent major depressive d isorder 06/12/2021 Assessment & Plan (06/12/2021 10:36 AM PUBLIC MESSAGE SERVICE SUPERVISOR): Continue with care per psychiatry Endometriosis 06/12/2021 Assessment & Plan (06/12/2021 10:36 AM PUBLIC MESSAGE SERVICE SUPERVISOR): Continue with care per solo truck driver Psychogenic nonepileptic seizure 08/09/2020 Migraine without aura and wi thout status migrainosus, not intractable 04/23/2020 Episodes of decreased attentiveness 04/23/2020 Assessment & Plan (06/12/2021 10:36 AM PUBLIC MESSAGE SERVICE SUPERVISOR): Continue with care per psychiatry Mild intermittent asthma 05/24/2018 Assessment & Plan (05/24/2018 4:45 AM PUBLIC MESSAGE SERVICE SUPERVISOR): Present on admission, currently asymptomatic. -Albuterol PRN Multiple food allergies 05/24/2018 Assessment & Plan (05/24/2018 4:47 AM PUBLIC MESSAGE SERVICE SUPERVISOR): Present on admission, currently asymptomatic. -Epinephrine 0.3mg IM PRN anaphylaxis Cervical pain (neck) 12/02/2016 Assessment & Plan (05/24/2018 4:47 AM PUBLIC MESSAGE SERVICE SUPERVISOR): Present on admission. Given description as unilateral [...] on file Legal Sex Female 11:46 PM PUBLIC MESSAGE SERVICE SUPERVISOR Gender Identity Not on file Sexual Orientation [...] CDT Oxygen Saturation 99% 06/02/2022 10:15 AM PUBLIC MESSAGE SERVICE SUPERVISOR Inhaled Oxygen Concentration - - Weight 52.7 [...] Influenza Vaccine (#1) 2023 05/25/2020, 2018 [facility] CIGNA OPEN ACCESS AETNA [facility] CIGNA OPEN ACCESS IDPA [facility] Advance Directives For more information, please contact: [phone] Documents on File Type Date Recorded Patient Shearer Helper Expl anation ADVANCE DIRECTIVE 05/24/2018 12:50 AM * Full Code (Latest Code Status on File) Date Activated Date Inactivated Comments 06/27/2020 8:51 AM 06/30/2020 8:59 PM * Full Code Date Activated Date Inactivated Comments 05/24/2018 2:35 AM 05/25/2018 6:00 PM Care Teams Marble Worker Relationship Specialty Start Date End Date Jennifer Reyes PA PCP - General Rail Washer 06/12/21
--- OUTSIDE RECORDS SUMMARY | 2024-06-17 10:37 | XMS_ITS | Clinical Summary ---
Author Organization [facility] Address [address] [place] [address] Phone Care Team Providers Care Charter Bus Driver Name Role Phone Unavailable Primary Care Provider [...] 2023, 09/17/2020 Medical Devices Implanted Type Area Hard Candy Batch Mixer Device Identifier Shelf Expiration Date Model / Serial / Lot Barrier Interceed Adh 3x4in 4350 - [id number] Implanted:Qt y: 1 on 02/04/2024 by Rahul Kilgore MD at [facility] Adhesion Barrier N/A: Pel[employer] [id number] 04/26/2028 4350 / / [id number] Barrier Interceed Adh 3x4in 4350 - [id number] Implanted:Qt y: 1 on 02/04/2024 by Rahul Kilgore MD at [facility] Adhesion Barrier N/A: [employer] [id number] 04/26/2028 4350 / / [id number] Insurance [facility] OPEN ACCESS HMO RX EXPRESS SCRIPTS Express Advance Directives For more information, please contact: [phone] * Full Code (Latest Code Status on File) Date Activated Date Inactivated Comments 02/04/2024 11:42 AM 02/04/2024 4:01 PM * Full Code Date Activated Date Inactivated Comments 02/04/2024 9:22 AM 02/04/2024 11:42 AM
--- OUTSIDE RECORDS SUMMARY | 2024-06-17 10:37 | XMS_ITS ---
Author Organization [facility] Address [address] [address] Care Team Providers Care Chemist Water Purification Name Role Phone Herlinda Arriola Unavailable [phone] Allergies Allergen (clinical drug ingredient) Drug/Non Drug [...] 05/16/2024 Encounters Encounter Location Date Provider Diagnosis [facility] [employer] [facility] [address] [facility] [address] [place] [address] 05/16/2024 Herlinda Arriola Bipolar disorder, current episode depressed, mild F31.31 ; Generalized anxiety disorder F41.1 ; Insomnia due to other mental disorder F51.05 ; Post-traumatic stress disorder, chronic F43.12 and Other manager intermediate (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 Z79.899 Assessments Encounter Date [...] and educated on complaince rx jaleel 05/19 https://www.[employer]/cannabis-use -disorder-marijuana- adhd/ Increase Lamotrigine 200 mg - [...] FND 2. Generalized anxiety disorder -continue medications parts room clerk PRESCRIBES Xanax - educated to take as [...] and educated on complaince rx jaleel 05/19 https://www.[employer]/cannabis-use -disorder-marijuana- adhd/ Increase Lamotrigine 200 mg - [...] FND 2. Generalized anxiety disorder -continue medications parts room clerk PRESCRIBES Xanax - educated to take as [...] and educated on complaince rx jaleel 05/19 https://www.[employer]/cannabis-use -disorder-marijuana- adhd/ Increase Lamotrigine 200 mg - [...] FND 2. Generalized anxiety disorder -continue medications parts room clerk PRESCRIBES Xanax - educated to take as [...] and educated on complaince rx jaleel 05/19 https://www.Mixbook.Nerd [employer]/cannabis-use -disorder-marijuana- adhd/ Increase Lamotrigine 200 mg - [...] FND 2. Generalized anxiety disorder -continue medications parts room clerk PRESCRIBES Xanax - educated to take as [...] 5. Long-term drug therapy - 05/16/2024 Other manager intermediate (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 (ICD-10 - Z79.899) Medication Refill: Care Instructions material was published, Medication Refill: Care Instructions material was published 1. Bipolar I disorder, most recent episode depression - educated to take rx as prescribed Abilify 10 mg at bedtime continue rx and educated on complaince rx jaleel 05/19 https://www.Mixbook.com/cannabis-use -disorder-marijuana- adhd/ Increase Lamotrigine 200 mg - [...] FND 2. Generalized anxiety disorder -continue medications parts room clerk PRESCRIBES Xanax - educated to take as [...] (PTSD): Care Instructions material was published Other manager intermediate (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 M edication Refill: Care Instructions material was published, Medication Refill: Care Instructions material was published Next Appt Details Follow Up: 1 Week, Reason: w rush appt x 4 increase depression and increase Lamotigine Provider Name:Herlinda Arriola , 06/24/2024 04:15:00 PM, [address], [facility] [address], [place], [address], Progress Notes * HARVEY MACHADO RDOB:2000 (24 yo F)Acc No.[id number]:05/16/2024 Patient: Colleen MATTHEWJEETHARVEY R Provider: Karen ARRIOLA PMHNP :2000 A ge:24 Y S ex:Female Date:05/16/2024 Address:[facility] [address] [facility] Subjective: * Chief Complaints: * 1 [...] I have biopsy for oraries and uterues, [facility] and Dr. Cheryl Restrepo FASHION STYLING INTERN refer me there? reported had biopsy dxn [...] to stop vaping and smoking cannabis labs [facility] BCP implant removed 07/29/23 Dr. Cheryl Restrepo BIG DATA LEAD - was placed on BCP seen FASHION STYLING INTERN 08/20/23- only take estrogen no progesterone BCP- SCHEDULE TO SEE FASHION STYLING INTERN menses 05/21 DRUGS , cannabis dispensary- reported [...] P ositve, F ollow-Up for Depression M entin health treatment assessment, Patient follow-up to return [...] dysfunction, and no paralysis; functional neurological d/o- [facility] clinic. She reports depression and anxiety b [...] disorder, chronic - F43.12 5. O ther halfway (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 - Z79.899 1. Bipolar I disorder, most recent episode depression - educated to take rx as prescribed Abilify 10 mg at bedtime continue rx and educated on complaince rx jaleel 05/19 https://www.additudemaHigher One.com/rqfkbzwu-dys-vjqmwuns-marijuana-adhd/ Increase Lamotrigine 200 mg - patient reported [...] FND 2. Generalized anxiety disorder -continue medications parts room clerk PRESCRIBES Xanax - educated to take as [...] Instructions material was published 4. O ther halfway (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 Notes: Medication Refill: Care Instructions material was published, Medication Refill: Care Instructions material was published * Procedure Codes: 9 6127 BEHAV ASSMT W/SCORE & DOCD/STAND INSTRUMENT, 26347 BEHAV ASSMT W/SCORE & DOCD/STAND INSTRUMENT, G9902 [...] stopping nicotine products and stop smoking hotline giuvh2-290-Jeid - Yes [place] Tobacco QuitlineCall a Smoking QuitlineThe National Cancer [place]'s Smoking Quitline, (5-937-04H-QUIT)Smokefree.gov, which connects you with your State's Quitline, (5-672-HRKUJVK)[facility] Smoking Quitline, (2-819-WJVYUUA). S moking Cessation counseling done Discuss the importance of quitting smoking,. * Follow Up: 1 Week (Reason: weekly appt x 4 increase depression and increase Lamotigine) * Billing Information: * Visit Code: 81744 OFFICE OUTPATIENT VISIT 25 MINUTES DETAILED HISTORY AND EXAM/MODERATE MEDICAL DECISION MAKING. * Procedure Codes: 56066 BEHAV ASSMT W/SCORE & DOCD/STAND INSTRUMENT. 26562 BEHAV ASSMT W/SCORE & DOCD/STAND INSTRUMENT. G9902 Pt scrn tbco and id as user. * TRICIAN SUBSTATION Sign off status: Completed true * Provider: YEIMY VIDES Date: 0 05/16/2024 Generated for Jorje watson/Hi/eTransmitting on: 0 06/17/2024 10:36 AM ELECTRICIAN SUBSTATION History and Physical Notes * HPI (History [...] I have biopsy for oraries and uterues, [facility] and Dr. Cheryl Restrepo FASHION STYLING INTERN refer me there reported had biopsy dxn [...] 08/31/2016 and hanging 03/14/19. [place] 05/08/2020 [facility], ETOH occasional smoking vapor I am trying to stop vaping and smoking cannabis labs [facility] BCP implant removed 07/29/23 Dr. Cheryl Restrepo BIG DATA LEAD - was placed on BCP seen FASHION STYLING INTERN 08/20/23- only take estrogen no progesterone BCP- SCHEDULE TO SEE FASHION STYLING INTERN menses 05/21 DRUGS , cannabis dispensary- reported [...] Screening Findings: P ositve Follow-Up for Depression: [facility] treatment assessment, Patient follow-up to return [...]
--- OUTSIDE RECORDS SUMMARY | 2024-06-17 10:37 | XMS_ITS ---
Author Organization [facility] Address [address] [place] [address] Care Team Providers Care Shear Scrapman Name Role Phone Herlinda Arriola Unavailable [phone] Allergies Allergen (clinical drug ingredient) Drug/Non Drug [...] 06/02/2024 Encounters Encounter Location Date Provider Diagnosis [facility] [employer] [facility] [address] [facility] [address] [place] [address] 06/02/2024 Herlinda Arriola Bipolar disorder, current episode depressed, mild F31.31 ; Generalized anxiety disorder F41.1 ; Insomnia due to other mental disorder F51.05 ; Post-traumatic stress disorder, chronic F43.12 and Other longterm (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 Z79.899 Assessments Encounter Date [...] and educated on complaince rx jaleel 05/19 https://www.[employer].com/cannabis-use -disorder-marijuana- adhd/ Lamotrigine 200 mg - patient [...] FND 2. Generalized anxiety disorder -continue medications hospital carrier PRESCRIBES Xanax - educated to take as [...] and educated on complaince rx jaleel 1/23 https://www.[employer]/cannabis-use -disorder-marijuana- adhd/ Lamotrigine 200 mg - patient [...] FND 2. Generalized anxiety disorder -continue medications hospital carrier PRESCRIBES Xanax - educated to take as [...] and educated on complaince rx jaleel 05/19 https://www.[employer]/cannabis-use -disorder-marijuana- adhd/ Lamotrigine 200 mg - patient [...] FND 2. Generalized anxiety disorder -continue medications hospital carrier PRESCRIBES Xanax - educated to take as [...] and educated on complaince rx jaleel 05/19 https://www.[employer]/cannabis-use -disorder-marijuana- adhd/ Lamotrigine 200 mg - patient [...] FND 2. Generalized anxiety disorder -continue medications hospital carrier PRESCRIBES Xanax - educated to take as [...] 5. Long-term drug therapy - 06/02/2024 Other lobsterman (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 (ICD-10 - Z79.899) Medication Refill: Care Instructions material was published, Medication Refill: Care Instructions material was published 1. Bipolar I disorder, most recent episode depression - educated to take rx as prescribed Abilify 10 mg at bedtime continue rx and educated on complaince rx jaleel 05/19 https://www.[employer]/cannabis-use -disorder-marijuana- adhd/ Lamotrigine 200 mg - patient [...] FND 2. Generalized anxiety disorder -continue medications hospital carrier PRESCRIBES Xanax - educated to take as [...] (PTSD): Care Instructions material was published Other lobsterman (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 M edication Refill: Care Instructions material was published, Medication Refill: Care Instructions material was published Next Appt Details Follow Up: 2 Months, Reason: f/u medications Provider Name:Herlinda Arriola , 06/24/2024 04:15:00 PM, [address], [facility] [address], [place], [address], Progress Notes * HARVEY MACHADO RDOB:2000 (24 yo F)Acc No.[id number]:06/02/2024 Patient: Colleen MATTHEWJEETHARVEY R Provider: Karen ARRIOLA PMHNP :2000 A ge:24 Y S ex:Female Date:06/02/2024 Address:[facility] [address], [facility] [place] Subjective: * Chief Complaints: * 1 . 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 Everything falls on me, I had to order picker a shift at [employer] and it is toxic for me but need money since not making money at [employer], therapy and I talked about it, really [...] I have biopsy for oraries and uterues, [facility] and Dr. Cheryl Restrepo COMMUNITY SERVICE COORDINATOR refer me there? reported had biopsy dxn [...] 08/31/2016 and hanging 03/14/19. [place] 05/08/2020 [facility], ETOH occasional smoking vapor I am trying to stop vaping and smoking cannabis labs [facility] BCP implant removed 07/29/23 Dr. Cheryl Restrepo B2B OUTSIDE SALES REPRESENTATIVE - was placed on BCP seen COMMUNITY SERVICE COORDINATOR 08/20/23- only take estrogen no progesterone BCP- SCHEDULE TO SEE COMMUNITY SERVICE COORDINATOR menses 05/21 DRUGS , cannabis dispensary- reported [...] dysfunction, and no paralysis; functional neurological d/o- [facility]. She reports depression and anxiety (situational [...] es, D o you have Power of Shop Router for Health or Medical? N o. * [...] disorder, chronic - F43.12 5. O ther longterm (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 - Z79.899 1. Bipolar I disorder, most recent episode depression - educated to take rx as prescribed Abilify 10 mg at bedtime continue rx and educated on complaince rx jaleel 05/19 https://www.DataSync/rtavunxm-atg-vovtyplm-marijuana-adhd/ L amotrigine 200 mg - patient reported [...] FND 2. Generalized anxiety disorder -continue medications hospital carrier PRESCRIBES Xanax - educated to take as [...] Instructions material was published 4. O ther lobsterman (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 Notes: Medication Refill: Care Instructions material was published, Medication Refill: Care Instructions material was published * Procedure Codes: 9 6127 BEHAV ASSMT W/SCORE & DOCD/STAND INSTRUMENT, G8783 NORMAL BP READING DOC F/U NOT RQR, 94400 BEHAV ASSMT W/SCORE & DOCD/STAND INSTRUMENT, G2211 VISIT COMPLEXITY INHERENT TO ONGOING CARE RELATED TO A PATIENT'S SINGLE, SERIOUS CONDITION OR A COMPLEX CONDITION * Follow Up: 2 Months (Reason: f/u medications) * Billing Information: * Visit Code: 72146 OFFICE OUTPATIENT VISIT 25 MINUTES DETAILED HISTORY AND EXAM/MODERATE MEDICAL DECISION MAKING. * Procedure Codes: 26681 BEHAV ASSMT W/SCORE & DOCD/STAND INSTRUMENT. G8783 NORMAL BP READING DOC F/U NOT RQR. 86792 BEHAV ASSMT W/SCORE & DOCD/STAND INSTRUMENT. G2211 VISIT COMPLEXITY INHERENT TO ONGOING CARE RELATED TO A PATIENT'S SINGLE, SERIOUS CONDITION OR A COMPLEX CONDITION. 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 Everything falls on me, I had to order picker a shift at [employer] and it is toxic for me but need money since not making money at [employer], therapy and I talked about it, really [...] I have biopsy for oraries and uterues, [facility] and Dr. Cheryl Restrepo COMMUNITY SERVICE COORDINATOR refer me there reported had biopsy dxn [...] trying to stop vaping and smoking cannabis [facility] BCP implant removed 07/29/23 Dr. Cheryl Restrepo B2B OUTSIDE SALES REPRESENTATIVE - was placed on BCP seen COMMUNITY SERVICE COORDINATOR 08/20/23- only take estrogen no progesterone BCP- SCHEDULE TO SEE COMMUNITY SERVICE COORDINATOR menses 05/21 DRUGS , cannabis dispensary- reported [...] Screening Findings: P ositve Follow-Up for Depression: [facility] health treatment assessment, Patient follow-up to return [...] Interpretation of Total: (15 and over) [facility]-Suicide Severity Rating Scale Suicide Risk (CSRS-screener) [...]
--- OUTSIDE RECORDS SUMMARY | 2024-06-17 10:37 | XMS_ITS | Encounter Summary ---
Author Organization [facility] Address [address] [place] [address] Care Team Providers Care Media Senior Recruiter Name Role Phone Unavailable Primary Care Provider [...]
--- OUTSIDE RECORDS SUMMARY | 2024-06-17 10:37 | XMS_ITS | Clinical Summary ---
Author Organization [facility] Address [facility] access hospital[address] [place] [address] Care Team Providers Care Portrait Painter Name Role Phone Brent Rubio MD Primary [...] age to complete this topic Care Teams Portrait Painter Relationship Specialty Start Date End Date Brent Rubio MD PCP - General 01/04/16
--- OUTSIDE RECORDS SUMMARY | 2024-06-17 10:37 | XMS_ITS | Clinical Summary ---
Author Organization [facility] Address [address] [place] [address] Care Team Providers Care Business Development Name Role Phone Unavailable Primary Care Provider Unavailabl e Social History Tobacco Use Types Packs/Day Years Used Date Smoking Tobacco: Never Assessed Comments Unknown Sex and Gender Information Value Date Recorded Sex Assigned at Not on file Legal Sex Female 1:46 PM TELEGRAPH INSTALLER Gender Identity Not on file Sexual Orientation [...]
--- OUTSIDE RECORDS SUMMARY | 2024-06-17 10:37 | XMS_ITS ---
Author Organization [facility] Address [address] [place] [address] Care Team Providers Care Stationary Engineer Refrigeration Name Role Phone Herlinda Arriola Unavailable [phone] Allergies Allergen (clinical drug ingredient) Drug/Non Drug [...] 06/10/2024 Encounters Encounter Location Date Provider Diagnosis [facility] [address] [place] [address] 06/10/2024 Herlinda Arriola Bipolar disorder, current episode depressed, mild F31.31 ; Generalized anxiety disorder F41.1 ; Insomnia due to other mental disorder F51.05 ; Post-traumatic stress disorder, chronic F43.12 and Other termite renewal inspector (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 Z79.899 Assessments Encounter Date [...] and educated on complaince rx jaleel 05/19 https://www.[employer].com/cannabis-use -disorder-marijuana- adhd/ Lamotrigine 200 mg - patient [...] FND 2. Generalized anxiety disorder -continue medications church business administrator PRESCRIBES Xanax - educated to take as [...] and educated on complaince rx jaleel 1/23 https://www.PandoDaily/cannabis-use -disorder-marijuana- adhd/ Lamotrigine 200 mg - patient [...] FND 2. Generalized anxiety disorder -continue medications church business administrator PRESCRIBES Xanax - educated to take as [...] and educated on complaince rx jaleel 05/19 https://www.[employer]/cannabis-use -disorder-marijuana- adhd/ Lamotrigine 200 mg - patient [...] FND 2. Generalized anxiety disorder -continue medications church business administrator PRESCRIBES Xanax - educated to take as [...] and educated on complaince rx jaleel 05/19 https://www.[employer]/cannabis-use -disorder-marijuana- adhd/ Lamotrigine 200 mg - patient [...] FND 2. Generalized anxiety disorder -continue medications church business administrator PRESCRIBES Xanax - educated to take as [...] 5. Long-term drug therapy - 06/10/2024 Other alf (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 (ICD-10 - Z79.899) Medication Refill: Care Instructions material was published, Medication Refill: Care Instructions material was published 1. Bipolar I disorder, most recent episode depression - educated to take rx as prescribed Abilify 10 mg at bedtime continue rx and educated on complaince rx jaleel 05/19 https://www.[employer]andoDaily/cannabis-use -disorder-marijuana- adhd/ Lamotrigine 200 mg - patient [...] FND 2. Generalized anxiety disorder -continue medications church business administrator PRESCRIBES Xanax - educated to take as [...] (PTSD): Care Instructions material was published Other alf (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 M edication Refill: Care Instructions material was published, Medication Refill: Care Instructions material was published Next Appt Details Follow Up: 1 Week, Reason: f /u stress Provider Name:Herlinda Arriola , 06/24/2024 04:15:00 PM, [address], [facility] [address], [place], [address], Progress Notes * HARVEY MACHADO RDOB:2000 (24 yo F)Acc No.[id number]:06/10/2024 Patient: Colleen JONES HARVEY R Provider: Karen ARRIOLA PMHNP :2000 A ge:24 Y S ex:Female Date:06/10/2024 Address:[facility] [address], [place], [place] Subjective: * Chief Complaints: * 1 . [...] I have biopsy for oraries and uterues, [facility] and Dr. Cheryl Restrepo OPERATIONS AND MAINTENANCE TECHNICAN refer me there? reported had biopsy dxn [...] hanging 03/14/19. [place] 05/08/2020 [facility], ETOH occasional smoking vapor I am trying to stop vaping and smoking cannabis [facility] BCP implant removed 07/29/23 Dr. Cheryl Restrepo RADIATION PROTECTION ENGINEER - was placed on BCP seen OPERATIONS AND MAINTENANCE TECHNICAN 08/20/23- only take estrogen no progesterone BCP- SCHEDULE TO SEE OPERATIONS AND MAINTENANCE TECHNICAN menses 05/21 DRUGS , cannabis dispensary- reported [...] dysfunction, and no paralysis; functional neurological d/o- [facility] clinic. She reports depression and anxiety (situational [...] es, D o you have Power of Padding Gluer for Health or Medical? N o. * [...] disorder, chronic - F43.12 5. O ther alf (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 - Z79.899 1. Bipolar I disorder, most recent episode depression - educated to take rx as prescribed Abilify 10 mg at bedtime continue rx and educated on complaince rx jaleel 05/19 https://www.[employer]/yunowqtr-wmt-otxscrwx-marijuana-adhd/ Lamotrigine 200 mg - patient reported depression [...] FND 2. Generalized anxiety disorder -continue medications church business administrator PRESCRIBES Xanax - educated to take as [...] material was published 4. O ther termite renewal inspector (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 Notes: Medication Refill: Care Instructions material was published, Medication Refill: Care Instructions material was published * Procedure Codes: 9 6127 BEHAV ASSMT W/SCORE & DOCD/STAND INSTRUMENT, G8783 NORMAL BP READING DOC F/U NOT RQR, 50210 BEHAV ASSMT W/SCORE & DOCD/STAND INSTRUMENT, G8431 [...] stress) * Billing Information: * Visit Code: 69809 OFFICE OUTPATIENT VISIT 25 MINUTES DETAILED HISTORY AND EXAM/MODERATE MEDICAL DECISION MAKING. * Procedure Codes: 71999 BEHAV ASSMT W/SCORE & DOCD/STAND INSTRUMENT. G8783 NORMAL BP READING DOC F/U NOT RQR. 07372 BEHAV ASSMT W/SCORE & DOCD/STAND INSTRUMENT. G8431 CLIN DEPRESSION SCREEN DOC. G8752 MOST RECENT SYSTOLIC BP < 140MM HG. G8754 MOST RECENT DIASTOLIC BP < 90MM HG. G2211 VISIT COMPLEXITY INHERENT TO ONGOING CARE RELATED TO A PATIENT'S SINGLE, SERIOUS CONDITION OR A COMPLEX CONDITION. * NG CRATER Sign off status: Completed true * Provider: YEIMY VIDES Date: 06/10/2024 Generated for Jorje watson/Hi/Amena on: 0 06/17/2024 10:37 AM SPRING CRATER History and Physical Notes * HPI (History [...] I have biopsy for oraries and uterues, [facility] and Dr. Cheryl Restrepo OPERATIONS AND MAINTENANCE TECHNICAN refer me there reported had biopsy dxn [...] BCP implant removed 07/29/23 Dr. Cheryl Restrepo RADIATION PROTECTION ENGINEER - was placed on BCP seen OPERATIONS AND MAINTENANCE TECHNICAN 08/20/23- only take estrogen no progesterone BCP- SCHEDULE TO SEE OPERATIONS AND MAINTENANCE TECHNICAN menses 05/21 DRUGS , cannabis dispensary- reported [...] Interpretation of Total: (15 and over) [facility] Suicide Risk (CSRS-screener) [...]
[2024-06-17] MEDS: KETOROLAC 15 MG/ML VIAL (*BKC) IV PUSH ×2 (11:05→15:23)
[2024-06-17] MEDS: LACTATED RINGERS 1,000 ML 30 ML IV CONT ×2 (11:05→14:00)
--- NOTE | 2024-06-17 11:41 | P.PNAN_ITS ---
Anes - Initial Pre Proc Eval Procedure: Operation Date: 06/17/24 12:00 Proposed Procedures p Diagnostic Laparoscopy, Right Ovarian Cystectomy - Philip Restrepo MD Date/Time: 06/17/24 11:41 Surgeon: Philip Restrepo MD Pre Op Diagnosis: pelvic pain, right ovarian cyst Patient Data Age: 24 Gender: F Height: 1.63 m Weight: 57.7 kg Allergies Allergy/AdvReac Type Severity Reaction Status Date / Time tree nut Allergy Severe Anaphylaxis Verified 06/16/24 10:07 morphine Allergy Mild Agitated Verified 06/16/24 10:07 cefdinir (From Omnicef) Allergy Hives Verified 06/16/24 10:07 elagolix (From Orilissa) AdvReac Migraine Verified 06/16/24 10:07 escitalopram (From Lexapro) AdvReac Itching Verified 06/16/24 10:07 Home Medications ?Medication ?Instructions ?Recorded ?Confirmed ?Type aripiprazole 10 mg tablet 10 mg PO HS 06/16/24 06/16/24 History lamotrigine 200 mg tablet 200 mg PO HS 06/16/24 06/16/24 History Patient hx anesthesia problems: none Family hx anesthesia problems: none Results Review: All pre-operative results and documents have been reviewed as part of the pre- operative evaluation. [facility] Past Medical History Medical History History of suicide attempt Depression Endometriosis Asthma Pelvic pain Anxiety Surgical History Surgical History H/O laparoscopy Family History Family History Mother No pertinent past medical history Social History Social History Smoking status: Current some day smoker Tobacco type: e-cigarettes/vaping Alcohol intake: current Alcohol use details: 1-2/MONTH Substance use: current Substance use type: marijuana Other substance usage details: Daily Living arrangements: with family Additional living arrangements comments: MOM Gender identity (if verbalized by the patient): Female Spiritual care concerns: No Anes - Eval Final PreProcedure Day of Procedure 06/17/24 11:41 Patient weight: normal Heart: regular rate and rhythm Lungs: clear to auscultation Airway: Mallampati scale class II Neurological: alert and oriented Last oral intake: >/= 8 hours ASA classification: III Emergent: no Anesthetic plan: proceed Anesthesia type and monitoring: general ETT and standard monitoring Results Review: All pre-operative results and documents have been reviewed as part of the pre- operative evaluation. Informed Consent: The patient's anesthetic plan and its attendant risks and benefits were discussed with the patient/family/POA. Questions were solicited and answers provided to the satisfaction of the patient/family/POA.
[2024-06-17] MEDS: SCOPOLAMINE 1 MG PATCH 1 PATCH TRANSDERM (12:05)
--- NOTE | 2024-06-17 12:48 | W.PM.PROC2 ---
Procedure Note - Detailed Date of Procedure 06/17/24 Pre-op Diagnosis pelvic pain, right ovarian cyst Post-op Diagnosis Same Procedure Performed Laparoscopic destruction of right ovarian cyst Surgeon Philip Restrepo MD Anesthesia General Indications 24-year-old female a large right ovarian cyst severe pelvic Findings Large right ovarian cyst benign in nature. Appearing left Description of Procedure Patient was prepped draped in normal sterile fashion placed dorsal lithotomy position. Under excellent general trach anesthesia weighted speculum placed in posterior fornix vagina. Anterior lip of the cervix grasped with single-tooth tenaculum. Knapp's cannula inserted attached to the single-tooth to be used later for uterine manipulation. After emptying the bladder clear urine the weighted speculum was removed the gloves were changed. An infraumbilical incision made the Veress needle passed in the abdomen. Abdomen filled with CO2 gas to 15mm Hg. 5mm trocar advanced under direct by direct visualization assuring no injury. Patient placed in Trendelenburg and a suprapubic incision made. The 5mm trocar advanced under direct visualization assuring no injury. Ovaries and tubes and uterus were visualized. There was some scar tissue from previous surgery of the endometriosis resection. A large right ovarian cyst about 5cm in size was present. This was opened in linear fashion and drained of clear fluid. This was cauterized at its base and no other abnormalities were seen this was suction and irrigated. No other abnormalities were seen. The lower site removed. The gas removed from the abdomen. The upper site removed. Incisions closed with 4 Monocryl and glue. The patient went to recovery in satisfactory condition. All sponge, needle, instrument counts were correct. There were no immediate complications Estimated Blood Loss 5 Drains No Packing No Pathology None sent Complications No immediate complications Condition Stable Disposition PACU
[2024-06-17] MEDS: fentaNYL CITRATE INJ (*CRX) 100 MCG/2 ML VIAL 25 MCG IV PUSH ×7 (13:16→14:19)
[2024-06-17] MEDS: oxyCODONE HCL (*CRX) 5 MG TAB IR PO (14:56)
[2024-06-17] MEDS: MIDAZOLAM HCL (*CRX) 2 MG/2 ML VIAL IV PUSH (15:38)
== END 2024-06-17 16:10 | disposition home or self-care (01) ==
LOC: ANHSURGERY 09:59
PROVIDERS: Visit Provider Obstetrics & Gynecology
PROC: (CPT 49320; principal; 2024-06-17 12:00)
DX: N83.201 Unspecified ovarian cyst, right side (principal); J45.909 Unspecified asthma, uncomplicated; F41.9 Anxiety disorder, unspecified; F32.A Depression, unspecified; N80.9 Endometriosis, unspecified; F12.90 Cannabis use, unspecified, uncomplicated; F17.290 Nicotine dependence, other tobacco product, uncomplicated; Z98.890 Other specified postprocedural states
CPT/HCPCS: 58662; A9270; J1100; J1885; J2003; J2250; J2405; J2704; J3010; J7120

== ENCOUNTER 2024-06-20 20:12 | Emergency (ER) | payer OTHER, SELFPAY ==
--- OUTSIDE RECORDS SUMMARY | 2024-06-20 20:14 | XMS_ITS | Patient Health Summary ---
Author Organization [facility] Address [address] [place] [address] Care Team Providers Care Environmental Studies Program Director Name Role Phone Denise Dyson MEDICAL AFFAIRS MANAGER-BRASSIERE CUP MOLD CUTTER Primary Care Provider + Note from [facility],non-owned Affiliates and Associated Physician Practices is amultiple site organization consisting of ambulatory clinics and hospital sitesin [place], [place], [place] and [place]. This disclosure is being madepursuant to the Care Everywhere program and may not contain all information available regarding this patient. Last updated 18.[facility] Allergies * [place] Oil(Anaphylaxis) -High Criticality * Cefdinir(Diarrhea,Urticaria,Other) -Medium Criticality [...] POINT OF C ARE ORDERABLES Care Teams Environmental Studies Program Director Relationship Specialty Start Date End Date Denise Dyson APRN-CNP [address] [place] [address]. [address] [place] [address] PCP - General Nurse Practitioner 03/25/23
--- OUTSIDE RECORDS SUMMARY | 2024-06-20 20:14 | XMS_ITS ---
Author Organization [facility] Address [address] [place] [address] Care Team Providers Care Watch Case Polisher Name Role Phone Herlinda Arriola Unavailable [phone] Allergies Allergen (clinical drug ingredient) Drug/Non Drug [...] 06/02/2024 Encounters Encounter Location Date Provider Diagnosis [facility] [address] [facility] [address] [place] [address] 06/02/2024 Herlinda Arriola Bipolar disorder, current episode depressed, mild F31.31 ; Generalized anxiety disorder F41.1 ; Insomnia due to other mental disorder F51.05 ; Post-traumatic stress disorder, chronic F43.12 and Other halfway (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 Z79.899 Assessments Encounter Date [...] and educated on complaince rx jaleel 05/19 [email or web address] -disorder-marijuana- adhd/ Lamotrigine 200 mg - patient [...] FND 2. Generalized anxiety disorder -continue medications rn document improvement specialist PRESCRIBES Xanax - educated to take [...] and educated on complaince rx jaleel 1/23 https://www.Bulb/cannabis-use -disorder-marijuana- adhd/ Lamotrigine 200 mg - patient [...] FND 2. Generalized anxiety disorder -continue medications rn document improvement specialist PRESCRIBES Xanax - educated to take [...] and educated on complaince rx jaleel 05/19 https://www.Bulb/cannabis-use -disorder-marijuana- adhd/ Lamotrigine 200 mg - patient [...] FND 2. Generalized anxiety disorder -continue medications rn document improvement specialist PRESCRIBES Xanax - educated to take [...] and educated on complaince rx jaleel 05/19 https://www.Bulb/[email or web address]-use -disorder-marijuana- adhd/ Lamotrigine 200 mg - patient [...] FND 2. Generalized anxiety disorder -continue medications rn document improvement specialist PRESCRIBES Xanax - educated to take [...] 5. Long-term drug therapy - 06/02/2024 Other long term care phlebotomist (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 (ICD-10 - Z79.899) Medication Refill: Care Instructions material was published, Medication Refill: Care Instructions material was published 1. Bipolar I disorder, most recent episode depression - educated to take rx as prescribed Abilify 10 mg at bedtime continue rx and educated on complaince rx jaleel 05/19 https://www.Bulb/cannabis-use -disorder-marijuana- adhd/ Lamotrigine 200 mg - patient [...] FND 2. Generalized anxiety disorder -continue medications rn document improvement specialist PRESCRIBES Xanax - educated to take [...] (PTSD): Care Instructions material was published Other long term care phlebotomist (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 M edication Refill: Care Instructions material was published, Medication Refill: Care Instructions material was published Next Appt Details Follow Up: 2 Months, Reason: f/u medications Provider Name:Herlinda Arriola , 06/24/2024 04:15:00 PM, [address], [facility] [address], [place], [address], Progress Notes * HARVEY MACHADO RDOB:2000 (24 yo F)Acc No.[id number]:06/02/2024 Patient: Colleen MATTHEWJEETHARVEY R Provider: Karen ARRIOLA PMHNP :2000 A ge:24 Y S ex:Female Date:06/02/2024 Address:[facility] [address], [place] [facility] [id number] Subjective: * Chief Complaints: * 1 . [...] I ntervention D epression Screening Findings P ositsomemr F ollow-Up for Depression M ental health [...] to navigate though it and be her senior caregiver afraid I will not have a life and fears I be caring for her rest my life and never have a relationship or move out. 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 Cheryl Restrepo VETERINARY RADIOLOGIST refer me there? reported had biopsy dxn [...] 08/31/2016 and hanging 03/14/19. [place] 05/08/2020 formerly [facility], ETOH occasional smoking vapor I am trying to stop vaping and smoking cannabis labs [facility] BCP implant removed 07/29/23 Dr. Cheryl Restrepo CAT AND DOG BATHER - was placed on BCP seen VETERINARY RADIOLOGIST 08/20/23- only take estrogen no progesterone BCP- SCHEDULE TO SEE VETERINARY RADIOLOGIST menses 05/21 DRUGS , cannabis dispensary- reported [...] and no paralysis; functional neurological d/o- [facility]. She reports depression and anxiety (situational [...] es, D o you have Power of Test Evaluator for Health or Medical? N o. * [...] and educated on complaince rx jaleel 05/19 [email or web address]://[email or web address]-marijuana-adhd/ L amotrigine 200 mg - patient reported [...] FND 2. Generalized anxiety disorder -continue medications rn document improvement specialist PRESCRIBES Xanax - educated to take [...] Instructions material was published 4. O ther long term care phlebotomist (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 Notes: Medication Refill: Care Instructions material was published, Medication Refill: Care Instructions material was published * Procedure Codes: 9 6127 BEHAV ASSMT W/SCORE & DOCD/STAND INSTRUMENT, G8783 NORMAL BP READING DOC F/U NOT RQR, 59489 BEHAV ASSMT W/SCORE & DOCD/STAND INSTRUMENT, G2211 VISIT COMPLEXITY INHERENT TO ONGOING CARE RELATED TO A PATIENT'S SINGLE, SERIOUS CONDITION OR A COMPLEX CONDITION * Follow Up: 2 Months (Reason: f/u medications) * Billing Information: * Visit Code: 68473 OFFICE OUTPATIENT VISIT 25 MINUTES DETAILED HISTORY AND EXAM/MODERATE MEDICAL DECISION MAKING. * Procedure Codes: 91448 BEHAV ASSMT W/SCORE & DOCD/STAND INSTRUMENT. G8783 NORMAL BP READING DOC F/U NOT RQR. 38647 BEHAV ASSMT W/SCORE & DOCD/STAND INSTRUMENT. G2211 VISIT COMPLEXITY INHERENT TO ONGOING CARE RELATED TO A PATIENT'S SINGLE, SERIOUS CONDITION OR A COMPLEX CONDITION. * ESS AND BAG INSPECTOR Sign off status: Completed true * Provider: YEIMY VIDES Date: 06/02/2024 Generated for Jorje watson/Hi/eTbethanieitting on: 06/20/2024 08:14 PM HARNESS AND BAG INSPECTOR History and Physical Notes * HPI (History [...] to navigate though it and be her senior caregiver afraid I will not have a life and fears I be caring for her rest my life and never have a relationship or move out. 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 Cheryl Restrepo VETERINARY RADIOLOGIST refer me there reported had biopsy dxn [...] trying to stop vaping and smoking cannabis [facility] BCP implant removed 07/29/23 Dr. Cheryl Restrepo CAT AND DOG BATHER - was placed on BCP seen VETERINARY RADIOLOGIST 08/20/23- only take estrogen no progesterone BCP- SCHEDULE TO SEE VETERINARY RADIOLOGIST menses 05/21 DRUGS , cannabis dispensary- reported [...] Screening Findings: P ositve Follow-Up for Depression: [facility] health treatment assessment, Patient follow-up to [...] Interpretation of Total: (15 and over) [facility]-Suicide Severity Rating Scale Suicide Risk (CSRS-screener) [...]
--- OUTSIDE RECORDS SUMMARY | 2024-06-20 20:14 | XMS_ITS | Referral Summary ---
Author Organization [facility] Address [address] [place] [address] Care Team Providers Care State Tested Nursing Assistant Name Role Phone Jennifer Reyes Primary Care Provider [phone] Allergies Active Allergy Reactions Criticality Noted Date [...] 06/12/2021 Assessment & Plan (06/12/2021 10:35 AM DIE SIZER): Advised no drops in ear Advised wearing cotton in ear when showering for the next week Advised adding 500mg tylenol q6h prn pain to current ibuprofen regimen x 3d Advised f/u if not improving or if worsening over the next week Otalgia, right 06/12/2021 Assessment & Plan (06/12/2021 10:35 AM DIE SIZER): Advised no drops in ear Advised wearing cotton in ear when showering for the next week Advised adding 500mg tylenol q6h prn pain to current ibuprofen regimen x 3d Advised f/u if not improving or if worsening over the next week Dermatitis 06/12/2021 Assessment & Plan (06/12/2021 10:36 AM DIE SIZER): Will add steroid cream bid x 7 days. She was advised f/u in the next week if not improving, sooner if worsening. Tobacco use 06/12/2021 Assessment & Plan (06/12/2021 10:35 AM DIE SIZER): Encouraged continued attempts at smoking cessation, discussed that the wellbutrin may benefit these attempts Moderate episode of recurrent major depressive d isorder 06/12/2021 Assessment & Plan (06/12/2021 10:36 AM DIE SIZER): Continue with care per psychiatry Endometriosis 06/12/2021 Assessment & Plan (06/12/2021 10:36 AM DIE SIZER): Continue with care per director of housing Psychogenic nonepileptic seizure 08/09/2020 Migraine without aura and wi thout status migrainosus, not intractable 04/23/2020 Episodes of decreased attentiveness 04/23/2020 Assessment & Plan (06/12/2021 10:36 AM DIE SIZER): Continue with care per psychiatry Mild intermittent asthma 05/24/2018 Assessment & Plan (05/24/2018 4:45 AM DIE SIZER): Present on admission, currently asymptomatic. -Albuterol PRN Multiple food allergies 05/24/2018 Assessment & Plan (05/24/2018 4:47 AM DIE SIZER): Present on admission, currently asymptomatic. -Epinephrine 0.3mg IM PRN anaphylaxis Cervical pain (neck) 12/02/2016 Assessment & Plan (05/24/2018 4:47 AM DIE SIZER): Present on admission. Given description as unilateral [...] on file Legal Sex Female 11:46 PM DIE SIZER Gender Identity Not on file Sexual Orientation [...] CDT Oxygen Saturation 99% 06/02/2022 10:15 AM DIE SIZER Inhaled Oxygen Concentration - - Weight 52.7 kg (116 lb 3.2 oz) 01/27/2023 2:59 P M CDT Height 162.6 cm (5' 4 ) 01/27/2023 2:59 PM CDT Body Mass Index 19.95 01/27/2023 2:59 PM CDT Plan of Treatment Not on file Insurance CIGNA OPEN ACCESS CIGNA OPEN ACCESS AETNA [facility] IDPA [facility] OPEN ACCESS [facility] PLAN [facility] Advance Directives For more information, please contact: [phone] Documents on File Type Date Recorded Patient Mechanical Manufacturing Technician Expl anation ADVANCE DIRECTIVE 05/24/2018 12:50 AM * Full Code (Latest Code Status on File) Date Activated Date Inactivated Comments 06/27/2020 8:51 AM 06/30/2020 8:59 PM * Full Code Date Activated Date Inactivated Comments 05/24/2018 2:35 AM 05/25/2018 6:00 PM Care Teams State Tested Nursing Assistant Relationship Specialty Start Date End Date Jennifer Reyes PA PCP - General Fiberglass Boat Builder 06/12/21
--- OUTSIDE RECORDS SUMMARY | 2024-06-20 20:14 | XMS_ITS ---
Author Organization [facility] Address [address] [place] [address] Care Team Providers Care Photogrammetric Engineer Name Role Phone Herlinda Arriola Unavailable [phone] Allergies Allergen (clinical drug ingredient) Drug/Non Drug [...] 06/10/2024 Encounters Encounter Location Date Provider Diagnosis [facility] [address] [place] [address] 06/10/2024 Herlinda Arriola Bipolar disorder, current episode depressed, mild F31.31 ; Generalized anxiety disorder F41.1 ; Insomnia due to other mental disorder F51.05 ; Post-traumatic stress disorder, chronic F43.12 and Other long term care administrator (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 Z79.899 Assessments Encounter Date [...] and educated on complaince rx jaleel 05/19 https://[email or web address]/cannabis-use -disorder-marijuana- adhd/ Lamotrigine 200 mg - patient [...] FND 2. Generalized anxiety disorder -continue medications fellmongering machine operator PRESCRIBES Xanax - educated to take as [...] and educated on complaince rx jaleel 1/23 https://www.SocialExpress/cannabis-use -disorder-marijuana- adhd/ Lamotrigine 200 mg - patient [...] FND 2. Generalized anxiety disorder -continue medications fellmongering machine operator PRESCRIBES Xanax - educated to take as [...] and educated on complaince rx jaleel 05/19 https://www.SocialExpress/cannabis-use -disorder-marijuana- adhd/ Lamotrigine 200 mg - patient [...] FND 2. Generalized anxiety disorder -continue medications fellmongering machine operator PRESCRIBES Xanax - educated to take as [...] and educated on complaince rx jaleel 05/19 https://www.SocialExpress/cannabis-use -disorder-marijuana- adhd/ Lamotrigine 200 mg - patient [...] FND 2. Generalized anxiety disorder -continue medications fellmongering machine operator PRESCRIBES Xanax - educated to take as [...] and educated on complaince rx jaleel 05/19 https://www.SocialExpress/cannabis-use -disorder-marijuana- adhd/ Lamotrigine 200 mg - patient [...] FND 2. Generalized anxiety disorder -continue medications fellmongering machine operator PRESCRIBES Xanax - educated to take as [...] Provider Name:Herlinda Arriola , 06/24/2024 04:15:00 PM, [address], [facility] [address], [place], [address], Progress Notes * HARVEY MACHADO RDOB:2000 (24 yo F)Acc No.[id number]:06/10/2024 Patient: Colleen JONES HARVEY R Provider: Karen ARRIOLA PMHNP :2000 A ge:24 Y S ex:Female Date:06/10/2024 Address:[facility] [address], [place], [id number] Subjective: * Chief Complaints: * 1 . [...] I have biopsy for oraries and uterues, [facility] and Dr. Cheryl Restrepo CBX OPERATOR refer me there? reported had biopsy dxn [...] 08/31/2016 and hanging 03/14/19. [place] 05/08/2020 community health, ETOH occasional smoking vapor I am trying to stop vaping and smoking cannabis [facility] BCP implant removed 07/29/23 Dr. Cheryl Restrepo WIRE PREPARATION MACHINE TENDER - was placed on BCP seen CBX OPERATOR 08/20/23- only take estrogen no progesterone BCP- SCHEDULE TO SEE CBX OPERATOR menses 05/21 DRUGS , cannabis dispensary- reported [...] paralysis; functional neurological d/o- [facility] clinic. She reports depression [...] es, D o you have Power of Assembler Crimper for Health or Medical? N o. * [...] and educated on complaince rx jaleel 05/19 [email or web address]-marijuana-adhd/ Lamotrigine 200 mg - patient reported depression [...] FND 2. Generalized anxiety disorder -continue medications fellmongering machine operator PRESCRIBES Xanax - educated to take as [...] published 4. O ther long term care administrator (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 Notes: Medication Refill: Care Instructions material was published, Medication Refill: Care Instructions material was published * Procedure Codes: 9 6127 BEHAV ASSMT W/SCORE & DOCD/STAND INSTRUMENT, G8783 NORMAL BP READING DOC F/U NOT RQR, 03000 BEHAV ASSMT W/SCORE & DOCD/STAND INSTRUMENT, G8431 [...] stress) * Billing Information: * Visit Code: 84798 OFFICE OUTPATIENT VISIT 25 MINUTES DETAILED HISTORY AND EXAM/MODERATE MEDICAL DECISION MAKING. * Procedure Codes: 61668 BEHAV ASSMT W/SCORE & DOCD/STAND INSTRUMENT. G8783 NORMAL BP READING DOC F/U NOT RQR. 81764 BEHAV ASSMT W/SCORE & DOCD/STAND INSTRUMENT. G8431 CLIN DEPRESSION SCREEN DOC. G8752 MOST RECENT SYSTOLIC BP < 140MM HG. G8754 MOST RECENT DIASTOLIC BP < 90MM HG. G2211 VISIT COMPLEXITY INHERENT TO ONGOING CARE RELATED TO A PATIENT'S SINGLE, SERIOUS CONDITION OR A COMPLEX CONDITION. * ILADA MAKER Sign off status: Completed true * Provider: YEIMY VIDES Date: 06/10/2024 Generated for Jorje watson/Hi/Amena on: 06/20/2024 08:14 PM ENCHILADA MAKER History and Physical Notes * HPI [...] I have biopsy for oraries and uterues, [facility] and Dr. Cheryl Restrepo CBX OPERATOR refer me there reported had biopsy dxn [...] BCP implant removed 07/29/23 Dr. Cheryl Restrepo WIRE PREPARATION MACHINE TENDER - was placed on BCP seen CBX OPERATOR 08/20/23- only take estrogen no progesterone BCP- SCHEDULE TO SEE CBX OPERATOR menses 05/21 DRUGS , cannabis dispensary- reported [...] Interpretation of Total: (15 and over) [facility] Suicide Risk (CSRS-screener) in [...]
--- OUTSIDE RECORDS SUMMARY | 2024-06-20 20:14 | XMS_ITS | Clinical Summary ---
Author Organization [facility] Address [address] [place] [address] Care Team Providers Care Nps Name Role Phone Jennifer Reyes Primary Care Provider +1- [phone] Allergies Active Allergy Reactions Criticality Noted Date [...] 06/12/2021 Assessment & Plan (06/12/2021 10:35 AM GANG HEMSTITCHING MACHINE OPERATOR): Advised no drops in ear Advised wearing cotton in ear when showering for the next week Advised adding 500mg tylenol q6h prn pain to current ibuprofen regimen x 3d Advised f/u if not improving or if worsening over the next week Otalgia, right 06/12/2021 Assessment & Plan (06/12/2021 10:35 AM GANG HEMSTITCHING MACHINE OPERATOR): Advised no drops in ear Advised wearing cotton in ear when showering for the next week Advised adding 500mg tylenol q6h prn pain to current ibuprofen regimen x 3d Advised f/u if not improving or if worsening over the next week Dermatitis 06/12/2021 Assessment & Plan (06/12/2021 10:36 AM GANG HEMSTITCHING MACHINE OPERATOR): Will add steroid cream bid x 7 days. She was advised f/u in the next week if not improving, sooner if worsening. Tobacco use 06/12/2021 Assessment & Plan (06/12/2021 10:35 AM GANG HEMSTITCHING MACHINE OPERATOR): Encouraged continued attempts at smoking cessation, discussed that the wellbutrin may benefit these attempts Moderate episode of recurrent major depressive d isorder 06/12/2021 Assessment & Plan (06/12/2021 10:36 AM GANG HEMSTITCHING MACHINE OPERATOR): Continue with care per psychiatry Endometriosis 06/12/2021 Assessment & Plan (06/12/2021 10:36 AM GANG HEMSTITCHING MACHINE OPERATOR): Continue with care per grinding room supervisor Psychogenic nonepileptic seizure 08/09/2020 Migraine without aura and wi thout status migrainosus, not intractable 04/23/2020 Episodes of decreased attentiveness 04/23/2020 Assessment & Plan (06/12/2021 10:36 AM GANG HEMSTITCHING MACHINE OPERATOR): Continue with care per psychiatry Mild intermittent asthma 05/24/2018 Assessment & Plan (05/24/2018 4:45 AM GANG HEMSTITCHING MACHINE OPERATOR): Present on admission, currently asymptomatic. -Albuterol PRN Multiple food allergies 05/24/2018 Assessment & Plan (05/24/2018 4:47 AM GANG HEMSTITCHING MACHINE OPERATOR): Present on admission, currently asymptomatic. -Epinephrine 0.3mg IM PRN anaphylaxis Cervical pain (neck) 12/02/2016 Assessment & Plan (05/24/2018 4:47 AM GANG HEMSTITCHING MACHINE OPERATOR): Present on admission. Given description as unilateral [...] on file Legal Sex Female 11:46 PM GANG HEMSTITCHING MACHINE OPERATOR Gender Identity Not on file Sexual Orientation [...] CDT Oxygen Saturation 99% 06/02/2022 10:15 AM GANG HEMSTITCHING MACHINE OPERATOR Inhaled Oxygen Concentration - - Weight 52.7 [...] Influenza Vaccine (#1) 2023 05/25/2020, 2018 [facility] CIGNA OPEN ACCESS AETNA VIA [facility] CIGNA OPEN ACCESS IDPA [facility] PLAN [facility] Advance Directives For more information, please contact: [phone] Documents on File Type Date Recorded Patient Account Receivable Clerk Expl anation ADVANCE DIRECTIVE 05/24/2018 12:50 AM * Full Code (Latest Code Status on File) Date Activated Date Inactivated Comments 06/27/2020 8:51 AM 06/30/2020 8:59 PM * Full Code Date Activated Date Inactivated Comments 05/24/2018 2:35 AM 05/25/2018 6:00 PM Care Teams Nps Relationship Specialty Start Date End Date Jennifer Reyes PA PCP - General Usability Engineer 06/12/21
--- OUTSIDE RECORDS SUMMARY | 2024-06-20 20:14 | XMS_ITS | Clinical Summary ---
Author Organization [facility] Address [address] [place] [address] Phone Care Team Providers Care Cage Unloader Name Role Phone Jennifer Reyes Primary Care Provider +1- [phone] Allergies Active Allergy Reactions Criticality Noted Date [...] Assessment & Plan: Continue with care per middle school art teacher Otalgia of right ear 06/12/2021 Overview (12/11/2021): [...] Vaccine (#1) 2023 05/25/2020, 2018 Care Teams Cage Unloader Relationship Specialty Start Date End Date Jennifer Reyes PA PCP - General Family Medicine 01/02/22
--- OUTSIDE RECORDS SUMMARY | 2024-06-20 20:14 | XMS_ITS | Clinical Summary ---
Author Organization [facility] Address [address] [place] [address] Care Team Providers Care Marketing Support Manager Name Role Phone Unavailable Primary Care Provider Unavailabl e Social History Tobacco Use Types Packs/Day Years Used Date Smoking Tobacco: Never Assessed Comments Unknown Sex and Gender Information Value Date Recorded Sex Assigned at Not on file Legal Sex Female 1:46 PM APPLE PACKING HEADER Gender Identity Not on file Sexual Orientation [...]
--- OUTSIDE RECORDS SUMMARY | 2024-06-20 20:14 | XMS_ITS | Clinical Summary ---
Author Organization [facility] Address [address] [place] [address] Phone Care Team Providers Care Jinrikisha Driver Name Role Phone Unavailable Primary Care [...] 2023, 09/17/2020 Medical Devices Implanted Type Area Transformer Assembly Supervisor Device Identifier Shelf Expiration Date Model / Serial / Lot Barrier Interceed Adh 3x4in 4350 - [id number] Implanted:Qt y: 1 on 02/04/2024 by Rahul Kilgore MD at [facility] Adhesion Barrier N/A: Pelvis [employer]- [employer] [id number] 04/26/2028 4350 / / [id number] Barrier Interceed Adh 3x4in 4350 - [id number] Implanted:Qt y: 1 on 02/04/2024 by Rahul Kilgore MD at [facility] Adhesion Barrier N/A: Pelvis [employer] [id number] 04/26/2028 [id number] / / [id number] Insurance [facility] OPEN ACCESS HMO RX EXPRESS [employer] Express Advance Directives For more information, please contact: [phone] * Full Code (Latest Code Status on File) Date Activated Date Inactivated Comments 02/04/2024 11:42 AM 02/04/2024 4:01 PM * Full Code Date Activated Date Inactivated Comments 02/04/2024 9:22 AM 02/04/2024 11:42 AM
--- OUTSIDE RECORDS SUMMARY | 2024-06-20 20:14 | XMS_ITS | Clinical Summary ---
Author Organization [facility] Address [address] [place] [address] Care Team Providers Care Inside Upholsterer Name Role Phone Denise Dyson BLINDSTITCH LINING FELLER-TOOL GRINDER Primary Care Provider + Source Comments [facility],non-owned Affiliates and Associated Physician Practices is amultiple site organization consisting of ambulatory clinics and hospital sitesin [place], [place], [place] and [place]. This disclosure is being madepursuant to the Care Everywhere program and may not contain all information available regarding this patient. Last updated 18.[facility] Allergies Active Allergy Reactions Criticality Noted Date Comments [place] Oil Anaphylaxis High 02/09/2022 Cefdinir Diarrhea,Urticaria,Other Medium [...] Date Diagnosed Date Bipolar affective disorder 12/24/2023 prison current use of therapeutic drug 2023 Insomnia [...] Assessment & Plan: Continue with care per learning designer Last Assessment & Plan: Continue with care per learning designer Dermatitis 06/12/2021 02/03/2023 Overview (02/03/2023): Last Assessment [...] age to complete this topic Care Teams Inside Upholsterer Relationship Specialty Start Date End Date Denise Dyson, BLINDSTITCH LINING FELLER-TOOL GRINDER [address] [place] [address] PCP - General Nurse Practitioner 03/25/23
--- OUTSIDE RECORDS SUMMARY | 2024-06-20 20:14 | XMS_ITS ---
Author Organization [facility] [facility] Address [address] [address] Care Team Providers Care Senior Security Engineer Name Role Phone Herlinda Arriola Unavailable [phone] Allergies Allergen (clinical drug ingredient) Drug/Non Drug [...] 05/16/2024 Encounters Encounter Location Date Provider Diagnosis [facility] [address] [facility] [address] [place] [address] 05/16/2024 Herlinda Arriola Bipolar disorder, current episode depressed, mild F31.31 ; Generalized anxiety disorder F41.1 ; Insomnia due to other mental disorder F51.05 ; Post-traumatic stress disorder, chronic F43.12 and Other director long term care (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 Z79.899 Assessments Encounter Date [...] and educated on complaince rx jaleel 05/19 [email or web address]/[email or web address]-use -disorder-marijuana- adhd/ Increase Lamotrigine 200 mg - [...] FND 2. Generalized anxiety disorder -continue medications inventory control assistant PRESCRIBES Xanax - educated to take as [...] and educated on complaince rx jaleel 05/19 https://www.[email or web address]/cannabis-use -disorder-marijuana- adhd/ Increase Lamotrigine 200 mg - [...] FND 2. Generalized anxiety disorder -continue medications inventory control assistant PRESCRIBES Xanax - educated to take as [...] and educated on complaince rx jaleel 05/19 https://www.[email or web address]/cannabis-use -disorder-marijuana- adhd/ Increase Lamotrigine 200 mg - [...] FND 2. Generalized anxiety disorder -continue medications inventory control assistant PRESCRIBES Xanax - educated to take as [...] and educated on complaince rx jaleel 05/19 https://[email or web address].[email or web address] BX/cannabis-use -disorder-marijuana- adhd/ Increase Lamotrigine 200 mg - [...] FND 2. Generalized anxiety disorder -continue medications inventory control assistant PRESCRIBES Xanax - educated to take as [...] 5. Long-term drug therapy - 05/16/2024 Other director long term care (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 (ICD-10 - Z79.899) Medication Refill: Care Instructions material was published, Medication Refill: Care Instructions material was published 1. Bipolar I disorder, most recent episode depression - educated to take rx as prescribed Abilify 10 mg at bedtime continue rx and educated on complaince rx jaleel 05/19 https://www.[employer].com/cannabis-use -disorder-marijuana- adhd/ Increase Lamotrigine 200 mg - [...] FND 2. Generalized anxiety disorder -continue medications inventory control assistant PRESCRIBES Xanax - educated to take as [...] (PTSD): Care Instructions material was published Other director long term care (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 M edication Refill: Care Instructions material was published, Medication Refill: Care Instructions material was published Next Appt Details Follow Up: 1 Week, Reason: w rush appt x 4 increase depression and increase Lamotigine Provider Name:Herlinda Arriola , 06/24/2024 04:15:00 PM, [address], [facility] [address], [place], [address], Progress Notes * HARVEY MACHADO RDOB:2000 (24 yo F)Acc No.[id number]:05/16/2024 Patient: Colleen MATTHEWJEETHARVEY R Provider: Karen ARRIOLA PMHNP :2000 A ge:24 Y S ex:Female Date:05/16/2024 Address:[facility] [address] [facility] Subjective: * Chief Complaints: * 1 [...] I have biopsy for oraries and uterues, [facility] and Dr. Cheryl Restrepo MOTH PROOFER refer me there? reported had biopsy dxn [...] to stop vaping and smoking cannabis labs [facility] BCP implant removed 07/29/23 Dr. Cheryl Restrepo SHIRT OPERATOR - was placed on BCP seen MOTH PROOFER 08/20/23- only take estrogen no progesterone BCP- SCHEDULE TO SEE MOTH PROOFER menses 05/21 DRUGS , cannabis dispensary- reported [...] P ositve, F ollow-Up for Depression M entmt health treatment assessment, Patient follow-up to return [...] dysfunction, and no paralysis; functional neurological d/o- [facility] clinic. She reports depression and anxiety b [...] and educated on complaince rx jaleel 05/19 [email or web address].[email or web address]-grx-lkdohxne-marijuana-adhd/ Increase Lamotrigine 200 mg - patient reported [...] FND 2. Generalized anxiety disorder -continue medications inventory control assistant PRESCRIBES Xanax - educated to take as [...] Instructions material was published 4. O ther care home (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 Notes: Medication Refill: Care Instructions material was published, Medication Refill: Care Instructions material was published * Procedure Codes: 9 6127 BEHAV ASSMT W/SCORE & DOCD/STAND INSTRUMENT, 52107 BEHAV ASSMT W/SCORE & DOCD/STAND INSTRUMENT, G9902 [...] stopping nicotine products and stop smoking hotline jaklt7-359-Kooo - Yes [place] Tobacco QuitlineCall a Smoking QuitlineThe National Cancer [place]'s Smoking Quitline, (5-090-21Z-QUIT)Smokefree.gov, which connects you with your State's Quitline, (9-502-FTQFHGT)[facility] Smoking Quitline, (3-511-LFQLFTP). S moking Cessation counseling done Discuss the importance of quitting smoking,. * Follow Up: 1 Week (Reason: weekly appt x 4 increase depression and increase Lamotigine) * Billing Information: * Visit Code: 96827 OFFICE OUTPATIENT VISIT 25 MINUTES DETAILED HISTORY AND EXAM/MODERATE MEDICAL DECISION MAKING. * Procedure Codes: 15544 BEHAV ASSMT W/SCORE & DOCD/STAND INSTRUMENT. 82231 BEHAV ASSMT W/SCORE & DOCD/STAND INSTRUMENT. G9902 Pt scrn tbco and id as user. * WICH MACHINE OPERATOR Sign off status: Completed true * Provider: YEIMY VIDES Date: 05/16/2024 Generated for Jorje watson/Hi/Adamransmitting on: 0 06/20/2024 08:14 PM SANDWICH MACHINE OPERATOR History and Physical Notes * HPI (History [...] I have biopsy for oraries and uterues, [facility] and Dr. Cheryl Restrepo MOTH PROOFER refer me there reported had biopsy dxn [...] and hanging 03/14/19. [place] 05/08/2020 [facility], ETOH occasional smoking vapor I am trying to stop vaping and smoking cannabis labs [facility] BCP implant removed 07/29/23 Dr. Cheryl Restrepo SHIRT OPERATOR - was placed on BCP seen MOTH PROOFER 08/20/23- only take estrogen no progesterone BCP- SCHEDULE TO SEE MOTH PROOFER menses 05/21 DRUGS , cannabis dispensary- reported [...] Screening Findings: P ositve Follow-Up for Depression: [facility] treatment assessment, Patient follow-up to [...]
--- OUTSIDE RECORDS SUMMARY | 2024-06-20 20:14 | XMS_ITS | Referral Summary ---
Author Organization [facility] Address [address] [facility] [place] [address] Care Team Providers Care Email Marketing Coordinator Name Role Phone Denise Dyson OPERATIONS BOARDMAN-STOCK HOUSE WORKER Primary Care Provider + Source Comments [facility],non-owned Affiliates and Associated Physician Practices is amultiple site organization consisting of ambulatory clinics and hospital sitesin [place], [place], [place] and [place]. This disclosure is being madepursuant to the Care Everywhere program and may not contain all information available regarding this patient. Last updated 18.[facility] Allergies Active Allergy Reactions Criticality Noted Date Comments [place] Oil Anaphylaxis High 02/09/2022 Cefdinir Diarrhea,Urticaria,Other Medium [...] Date Diagnosed Date Bipolar affective disorder 12/24/2023 nursing home current use of therapeutic drug 2023 [...] Assessment & Plan: Continue with care per enterprise resource planner Last Assessment & Plan: Continue with care per enterprise resource planner Dermatitis 06/12/2021 02/03/2023 Overview (02/03/2023): Last Assessment [...] of Treatment Not on file Care Teams Email Marketing Coordinator Relationship Specialty Start Date End Date Denise Dyson, OPERATIONS BOARDMAN-STOCK HOUSE WORKER [address] [place] [id number] PCP - General Nurse Practitioner 03/25/23
--- OUTSIDE RECORDS SUMMARY | 2024-06-20 20:15 | XMS_ITS | Clinical Summary ---
Author Organization [facility] Address Replaced by [facility] [address] [place] [address] Care Team Providers Care Diabetes Territory Manager Name Role Phone Brent Rubio MD Primary [...] age to complete this topic Care Teams Diabetes Territory Manager Relationship Specialty Start Date End Date Brent Rubio MD PCP - General 01/04/16
--- NOTE | 2024-06-20 20:39 | PC.NURSE ---
2038-NO ANSWER FROM WAITING ROOM
--- NOTE | 2024-06-20 20:45 | PC.NURSE ---
2044-NO ANSWER FROM WAITING ROOM
--- OUTSIDE RECORDS SUMMARY | 2024-06-20 20:57 | XMS_ITS | Clinical Summary ---
Author Organization [facility] Address [address] [place] [address] Phone Care Team Providers Care Crm System Administrator Name Role Phone Jennifer Reyes Primary Care Provider +1- [phone] Allergies Active Allergy Reactions Criticality Noted Date [...] Assessment & Plan: Continue with care per lining stamper Otalgia of right ear 06/12/2021 Overview (12/11/2021): [...] Vaccine (#1) 2023 05/25/2020, 2018 Care Teams Crm System Administrator Relationship Specialty Start Date End Date Jennifer Reyes PA PCP - General Family Medicine 01/02/22
--- OUTSIDE RECORDS SUMMARY | 2024-06-20 20:57 | XMS_ITS | Referral Summary ---
Author Organization [facility] Address [address] [place] [address] Care Team Providers Care Alternative Medicine Practitioner Name Role Phone Jennifer Reyes Primary Care Provider +1- [phone] Allergies Active Allergy Reactions Criticality Noted Date [...] 06/12/2021 Assessment & Plan (06/12/2021 10:35 AM BULK PLANT OPERATOR): Advised no drops in ear Advised wearing cotton in ear when showering for the next week Advised adding 500mg tylenol q6h prn pain to current ibuprofen regimen x 3d Advised f/u if not improving or if worsening over the next week Otalgia, right 06/12/2021 Assessment & Plan (06/12/2021 10:35 AM BULK PLANT OPERATOR): Advised no drops in ear Advised wearing cotton in ear when showering for the next week Advised adding 500mg tylenol q6h prn pain to current ibuprofen regimen x 3d Advised f/u if not improving or if worsening over the next week Dermatitis 06/12/2021 Assessment & Plan (06/12/2021 10:36 AM BULK PLANT OPERATOR): Will add steroid cream bid x 7 days. She was advised f/u in the next week if not improving, sooner if worsening. Tobacco use 06/12/2021 Assessment & Plan (06/12/2021 10:35 AM BULK PLANT OPERATOR): Encouraged continued attempts at smoking cessation, discussed that the wellbutrin may benefit these attempts Moderate episode of recurrent major depressive d isorder 06/12/2021 Assessment & Plan (06/12/2021 10:36 AM BULK PLANT OPERATOR): Continue with care per psychiatry Endometriosis 06/12/2021 Assessment & Plan (06/12/2021 10:36 AM BULK PLANT OPERATOR): Continue with care per senior manufacturing test engineer Psychogenic nonepileptic seizure 08/09/2020 Migraine without aura and wi thout status migrainosus, not intractable 04/23/2020 Episodes of decreased attentiveness 04/23/2020 Assessment & Plan (06/12/2021 10:36 AM BULK PLANT OPERATOR): Continue with care per psychiatry Mild intermittent asthma 05/24/2018 Assessment & Plan (05/24/2018 4:45 AM BULK PLANT OPERATOR): Present on admission, currently asymptomatic. -Albuterol PRN Multiple food allergies 05/24/2018 Assessment & Plan (05/24/2018 4:47 AM BULK PLANT OPERATOR): Present on admission, currently asymptomatic. -Epinephrine 0.3mg IM PRN anaphylaxis Cervical pain (neck) 12/02/2016 Assessment & Plan (05/24/2018 4:47 AM BULK PLANT OPERATOR): Present on admission. Given description as [...] on file Legal Sex Female 11:46 PM BULK PLANT OPERATOR Gender Identity Not on file Sexual [...] CDT Oxygen Saturation 99% 06/02/2022 10:15 AM BULK PLANT OPERATOR Inhaled Oxygen Concentration - - Weight 52.7 kg (116 lb 3.2 oz) 01/27/2023 2:59 P M CDT Height 162.6 cm (5' 4 ) 01/27/2023 2:59 PM CDT Body Mass Index 19.95 01/27/2023 2:59 PM CDT Plan of Treatment Not on file Insurance CIGNA OPEN ACCESS CIGNA OPEN ACCESS AETNA [facility] IDPA [facility] OPEN ACCESS [facility] PLAN [facility] Advance Directives For more information, please contact: [phone] Documents on File Type Date Recorded Patient Manager Wealth Management Expl anation ADVANCE DIRECTIVE 05/24/2018 12:50 AM * Full Code (Latest Code Status on File) Date Activated Date Inactivated Comments 06/27/2020 8:51 AM 06/30/2020 8:59 PM * Full Code Date Activated Date Inactivated Comments 05/24/2018 2:35 AM 05/25/2018 6:00 PM Care Teams Alternative Medicine Practitioner Relationship Specialty Start Date End Date Jennifer Reyes PA PCP - General Medical Physics Professor 06/12/21
--- OUTSIDE RECORDS SUMMARY | 2024-06-20 20:57 | XMS_ITS | Clinical Summary ---
Author Organization [facility] Address [address] [place] [address] Care Team Providers Care Mental Health Clinician Name Role Phone Unavailable Primary Care Provider Unavailabl e Social History Tobacco Use Types Packs/Day Years Used Date Smoking Tobacco: Never Assessed Comments Unknown Sex and Gender Information Value Date Recorded Sex Assigned at Not on file Legal Sex Female 1:46 PM CUT OFF SAWYER LOG Gender Identity Not on file Sexual Orientation [...]
--- OUTSIDE RECORDS SUMMARY | 2024-06-20 20:57 | XMS_ITS | Clinical Summary ---
Author Organization [facility] Address [address] [place] [address] Phone Care Team Providers Care Order Picker/Assembler Name Role Phone Unavailable Primary Care Provider [...] 2023, 09/17/2020 Medical Devices Implanted Type Area Clock Maker Device Identifier Shelf Expiration Date Model / Serial / Lot Barrier Interceed Adh 3x4in 4350 - [id number] Implanted:Qt y: 1 on 02/04/2024 by Rahul Kilgore MD at [facility] Adhesion Barrier N/A: Pelvis [employer] [id number] 04/26/2028 [id number] / / [id number] Barrier Interceed Adh 3x4in 4350 - [id number] Implanted:Qt y: 1 on 02/04/2024 by Rahul Kilgore MD at [facility] Adhesion Barrier N/A: Pelvis [employer] [id number] 04/26/2028 [id number] / / [id number] Insurance [facility] OPEN ACCESS HMO RX EXPRESS [employer] Express Advance Directives For more information, please contact: [phone] * Full Code (Latest Code Status on File) Date Activated Date Inactivated Comments 02/04/2024 11:42 AM 02/04/2024 4:01 PM * Full Code Date Activated Date Inactivated Comments 02/04/2024 9:22 AM 02/04/2024 11:42 AM
--- OUTSIDE RECORDS SUMMARY | 2024-06-20 20:57 | XMS_ITS | Clinical Summary ---
Author Organization [facility] Address [address] [place] [address] Care Team Providers Care Oilseed Meat Presser Name Role Phone Jennifer Reyes Primary Care Provider [phone] Allergies Active Allergy Reactions Criticality Noted Date [...] 06/12/2021 Assessment & Plan (06/12/2021 10:35 AM LEVEL VIAL INSPECTOR): Advised no drops in ear Advised wearing cotton in ear when showering for the next week Advised adding 500mg tylenol q6h prn pain to current ibuprofen regimen x 3d Advised f/u if not improving or if worsening over the next week Otalgia, right 06/12/2021 Assessment & Plan (06/12/2021 10:35 AM LEVEL VIAL INSPECTOR): Advised no drops in ear Advised wearing cotton in ear when showering for the next week Advised adding 500mg tylenol q6h prn pain to current ibuprofen regimen x 3d Advised f/u if not improving or if worsening over the next week Dermatitis 06/12/2021 Assessment & Plan (06/12/2021 10:36 AM LEVEL VIAL INSPECTOR): Will add steroid cream bid x 7 days. She was advised f/u in the next week if not improving, sooner if worsening. Tobacco use 06/12/2021 Assessment & Plan (06/12/2021 10:35 AM LEVEL VIAL INSPECTOR): Encouraged continued attempts at smoking cessation, discussed that the wellbutrin may benefit these attempts Moderate episode of recurrent major depressive d isorder 06/12/2021 Assessment & Plan (06/12/2021 10:36 AM LEVEL VIAL INSPECTOR): Continue with care per psychiatry Endometriosis 06/12/2021 Assessment & Plan (06/12/2021 10:36 AM LEVEL VIAL INSPECTOR): Continue with care per rough rounder Psychogenic nonepileptic seizure 08/09/2020 Migraine without aura and wi thout status migrainosus, not intractable 04/23/2020 Episodes of decreased attentiveness 04/23/2020 Assessment & Plan (06/12/2021 10:36 AM LEVEL VIAL INSPECTOR): Continue with care per psychiatry Mild intermittent asthma 05/24/2018 Assessment & Plan (05/24/2018 4:45 AM LEVEL VIAL INSPECTOR): Present on admission, currently asymptomatic. -Albuterol PRN Multiple food allergies 05/24/2018 Assessment & Plan (05/24/2018 4:47 AM LEVEL VIAL INSPECTOR): Present on admission, currently asymptomatic. -Epinephrine 0.3mg IM PRN anaphylaxis Cervical pain (neck) 12/02/2016 Assessment & Plan (05/24/2018 4:47 AM LEVEL VIAL INSPECTOR): Present on admission. Given description as unilateral [...] on file Legal Sex Female 11:46 PM LEVEL VIAL INSPECTOR Gender Identity Not on file Sexual Orientation [...] CDT Oxygen Saturation 99% 06/02/2022 10:15 AM LEVEL VIAL INSPECTOR Inhaled Oxygen Concentration - - Weight 52.7 [...] Influenza Vaccine (#1) 2023 05/25/2020, 2018 [facility] CIGNA OPEN ACCESS AETNA [facility] [employer] CIGNA OPEN ACCESS [facility] PLAN [facility] Advance Directives For more information, please contact: [phone] Documents on File Type Date Recorded Patient Sharepoint Trainer Expl anation ADVANCE DIRECTIVE 05/24/2018 12:50 AM * Full Code (Latest Code Status on File) Date Activated Date Inactivated Comments 06/27/2020 8:51 AM 06/30/2020 8:59 PM * Full Code Date Activated Date Inactivated Comments 05/24/2018 2:35 AM 05/25/2018 6:00 PM Care Teams Oilseed Meat Presser Relationship Specialty Start Date End Date Jennifer Reyes PA PCP - General Product Safety Engineer 06/12/21
--- OUTSIDE RECORDS SUMMARY | 2024-06-20 20:57 | XMS_ITS | Clinical Summary ---
Author Organization [facility] Address [address] [place] [address] Care Team Providers Care Machined Parts Quality Inspector Name Role Phone Denise Dyson TECHNICAL SERVICE ENGINEER-SPOUT WORKER Primary Care Provider + Source Comments [facility],non-owned Affiliates and Associated Physician Practices is amultiple site organization consisting of ambulatory clinics and hospital sitesin [place], [place], [place] and [place]. This disclosure is being madepursuant to the Care Everywhere program and may not contain all information available regarding this patient. Last updated 18.[facility] Allergies Active Allergy Reactions Criticality Noted Date Comments [place] Oil Anaphylaxis High 02/09/2022 Cefdinir Diarrhea,Urticaria,Other Medium [...] Date Diagnosed Date Bipolar affective disorder 12/24/2023 longterm current use of therapeutic drug 2023 Insomnia [...] Assessment & Plan: Continue with care per blasting machine operator Last Assessment & Plan: Continue with care per blasting machine operator Dermatitis 06/12/2021 02/03/2023 Overview (02/03/2023): Last Assessment [...] age to complete this topic Care Teams Machined Parts Quality Inspector Relationship Specialty Start Date End Date Denise Dyson, TECHNICAL SERVICE ENGINEER-SPOUT WORKER [address] [place] [address] PCP - General Nurse Practitioner 03/25/23
--- OUTSIDE RECORDS SUMMARY | 2024-06-20 20:57 | XMS_ITS | Patient Health Summary ---
Author Organization [facility] Address [address] [place] [address] Care Team Providers Care Surgical First Assistant Name Role Phone Denise Dyson HEAD PASTRY CHEF-CANCELING MACHINE OPERATOR Primary Care Provider + Note from [facility],non-owned Affiliates and Associated Physician Practices is amultiple site organization consisting of ambulatory clinics and hospital sitesin [place], [place], [place] and [place]. This disclosure is being madepursuant to the Care Everywhere program and may not contain all information available regarding this patient. Last updated 18.[facility] Allergies * [place] Oil(Anaphylaxis) -High Criticality * Cefdinir(Diarrhea,Urticaria,Other) -Medium Criticality [...] Date Diagnosed Date Bipolar affective disorder 12/24/2023 custodial current use of therapeutic drug 2023 Insomnia [...] POINT OF C ARE ORDERABLES Care Teams Surgical First Assistant Relationship Specialty Start Date End Date Denise Dyson APRN-CNP [address] [place] [address]. [address] [place] [address] PCP - General Nurse Practitioner 03/25/23
--- OUTSIDE RECORDS SUMMARY | 2024-06-20 20:57 | XMS_ITS | Referral Summary ---
Author Organization [facility] [employer] [employer] Address [address] [facility] [address] [facility] [address] [place] [address] Care Team Providers Care Needle Board Repairer Name Role Phone Denise Dyson VETERINARY RECEPTIONIST-RINK RAT Primary Care Provider + Source Comments [facility],non-owned Affiliates and Associated Physician Practices is amultiple site organization consisting of ambulatory clinics and hospital sitesin [place], [place], [place] and [place]. This disclosure is being madepursuant to the Care Everywhere program and may not contain all information available regarding this patient. Last updated 18.[facility] [employer] [facility] Allergies Active Allergy Reactions Criticality Noted Date Comments [place] Oil Anaphylaxis High 02/09/2022 Cefdinir Diarrhea,Urticaria,Other Medium [...] Date Diagnosed Date Bipolar affective disorder 12/24/2023 jail current use of therapeutic drug 2023 Insomnia [...] Assessment & Plan: Continue with care per counter weigher Last Assessment & Plan: Continue with care per counter weigher Dermatitis 06/12/2021 02/03/2023 Overview (02/03/2023): Last Assessment [...] of Treatment Not on file Care Teams Needle Board Repairer Relationship Specialty Start Date End Date Denise Dyson, VETERINARY RECEPTIONIST-RINK RAT [address] [place] [id number] PCP - General Nurse Practitioner 03/25/23
--- OUTSIDE RECORDS SUMMARY | 2024-06-20 20:57 | XMS_ITS | Patient Health Record ---
Author Organization [facility] ideeli [facility] Address [address] [facility] [address] [place] [address] Care Team Providers Care Financial Adviser Name Role Phone Herlinda Arriola Unavailable [phone] Migration, Provider Unavailable Unavailable Allergies Allergen (clinical drug ingredient) Drug/Non Drug Allergy documented on EMR Reaction Allergy Type Onset Date Status TREE NUT (uncoded) Unknown Allergy 08/21/2023 Active escitalopram Lexapro Unknown Drug Allergy 08/21/2023 Act adam Omnicef Unknown Drug Allergy 08/21/2023 Active Results Component Value Reference Range Notes CBC W/ AUTO DIFF Reviewed date:08/13/2023 12:00:00 AM Interpretation: Performing Lab: Notes/Report: ABSOLUTE BASOPHILS 52 CELLS/UL ABSOLUTE EOSINOPHILS 103 CELLS/UL ABSOLUTE LYMPHOCYTES 1092 CELLS/UL ABSOLUTE MONOCYTES 378 CELLS/UL ABSOLUTE NEUTROPHILS 6975 CELLS/UL BASOPHILS 0.6 % EOSINOPHILS 1.2 % HEMATOCRIT 39.9 % HEMOGLOBIN 13.2 G/DL LYMPHOCYTES 12.7 % MCH 28.9 PG MCHC 33.1 G/DL MCV 87.5 FL MONOCYTES 4.4 % MPV 12.4 FL NEUTROPHILS 81.1 % PLATELET COUNT 211 THOUSAND/UL RDW 12.9 % RED BLOOD CELL COUNT 4.56 MILLION/UL WHITE BLOOD CELL COUNT 8.6 THOUSAND/UL CMP, SERUM OR PLASMA Reviewed date:08/13/2023 12:00:00 AM Interpretation: Performing Lab: Notes/Report: ALBUMIN 4.7 G/DL ALBUMIN/GLOBULIN RATIO 2.0 (CALC) ALKALINE PHOSPHATASE 40 U/L ALT 14 U/L AST 15 U/L BILIRUBIN, TOTAL 0.7 MG/DL BUN/CREATININE RATIO SEE NOTE: (CALC) CALCIUM 9.3 MG/DL CARBON DIOXIDE 27 MMOL/L CHLORIDE 105 MMOL/L CREATININE 0.77 MG/DL EGFR 110 ML/MIN/1.73M2 GLOBULIN 2.4 G/DL (CALC) GLUCOSE 88 MG/DL POTASSIUM 4.0 MMOL/L PROTEIN, TOTAL 7.1 G/DL SODIUM 141 MMOL/L UREA NITROGEN (BUN) 16 MG/DL HBA1C (HEMOGLOBIN A1C), FLAKITO Briceño Reviewed date:08/13/2023 12:00:00 AM Interpretation: Performing Lab: Notes/Report: HEMOGLOBIN A1C 5.2 % OF TOTAL HGB TSH, SERUM OR PLASMA Reviewed date:08/13/2023 12:00:00 AM Interpretation: Performing Lab: Notes/Report: TSH W/REFLEX TO FT4 1.26 mIU/L LIPID PANEL, STANDARD (7600) Reviewed date:10/01/2023 08:54:06 AM Interpretation: Performing Lab:CATIE [facility] Energy-[id number] Igor [id number] Nikos Jacobsen MD Notes/Report: CHOLESTEROL, TOTAL 126 <200 mg/dL HDL CHOLESTEROL 61 > OR = 50 mg/dL TRIGLYCERIDES 31 <150 mg/dL LDL-CHOLESTEROL 56 Reference range: <100 Desirable range <100 mg/dL for primary prevention; <70 mg/dL for patients with CHD or diabetic patients with > or = 2 CHD risk factors. LDL-C is now calculated using the Farooq-Hylton calculation, which is a validated novel method providing better accuracy than the Friedewald equation in the estimation of LDL-C. Farooq SS et al. ELLIOTT. 2013;310(19): 5506-1063 (http://education.Xeneta.com/faq/F AQ164) CHOL/HDLC RATIO 2.1 <5.0 (calc) NON HDL CHOLESTEROL 65 <130 mg/dL (calc) For patients with diabetes plus 1 major ASCVD risk factor, treating to a non-HDL-C goal of <100 mg/dL (LDL-C of <70 mg/dL) is considered a therapeutic option. COMPREHENSIVE METABOLIC JM Narvaez ([id number]) Reviewed date:10/01/2023 08:53:46 AM Interpretation: Performing Lab:CATIE [facility] [id number] Igor GiraldoaKS[address] Nikos Jacobsen MD Notes/Report: GLUCOSE 88 65-99 mg/dL Fasting reference interval UREA NITROGEN (BUN) 16 7-25 mg/dL CREATININE 0.77 0.50-0.96 mg/dL EGFR 110 > OR = 60 mL/min/1.73m2 BUN/CREATININE RATIO SEE NOTE: 6-22 (calc) Not Reported: BUN and Creatinine are within reference range. SODIUM 141 135-146 mmol/L POTASSIUM 4.0 3.5-5.3 mmol/L CHLORIDE 105 98-110 mmol/L CARBON DIOXIDE 27 20-32 mmol/L CALCIUM 9.3 8.6-10.2 mg/dL PROTEIN, TOTAL 7.1 6.1-8.1 g/dL ALBUMIN 4.7 3.6-5.1 g/dL GLOBULIN 2.4 1.9-3.7 g/dL (calc) ALBUMIN/GLOBULIN RATIO 2.0 1.0-2.5 (calc) BILIRUBIN, TOTAL 0.7 0.2-1.2 mg/dL ALKALINE PHOSPHATASE 40 31-125 U/L AST 15 10-30 U/L ALT 14 6-29 U/L CBC (INCLUDES DIFF/PLT) ([id number] 9) Reviewed date:10/01/2023 08:52:58 AM Interpretation: Performing Lab:KS, [facility] Energy-[id number] Evy Singh, [id number] Nikos Jacobsen MD Notes/Report: WHITE BLOOD CELL COUNT 8.6 3.8-10.8 Thousand/ uL RED BLOOD CELL COUNT 4.56 3.80-5.10 Million/uL HEMOGLOBIN 13.2 11.7-15.5 g/dL HEMATOCRIT 39.9 35.0-45.0 % MCV 87.5 80.0-100.0 fL MCH 28.9 27.0-33.0 pg MCHC 33.1 32.0-36.0 g/dL RDW 12.9 11.0-15.0 % PLATELET COUNT 211 140-400 Thousand/uL MPV 12.4 7.5-12.5 fL ABSOLUTE NEUTROPHILS 6975 [id number] cells/uL ABSOLUTE LYMPHOCYTES 9393 961-2036 cells/uL ABSOLUTE MONOCYTES 378 200-950 cells/uL ABSOLUTE EOSINOPHILS 103 15-500 cells/uL ABSOLUTE BASOPHILS 52 0-200 cells/uL NEUTROPHILS 81.1 LYMPHOCYTES 12.7 MONOCYTES 4.4 EOSINOPHILS 1.2 BASOPHILS 0.6 HEMOGLOBIN A1c (496) Reviewed date:10/01/2023 08:52:09 AM Interpretation: Performing Lab:Rosalia BEGUM inploid.comHedrick Medical CenterGijxy60364 Administration Celia Weinberg [id number] Nikos Jacobsen Notes/Report: HEMOGLOBIN A1c 5.2 <5.7 % of total Hgb For the purpose of screening for the presence of diabetes: <5.7% Consistent with the absence of diabetes 5.7-6.4% Consistent with increased risk for diabetes (prediabetes) > or =6.5% Consistent with diabetes This assay result is consistent with a decreased risk of diabetes. Currently, no consensus exists regarding use of hemoglobin A1c for diagnosis of diabetes in children. According to [place] Diabetes Association (ADA) guidelines, hemoglobin A1c <7.0% represents optimal control in non- diabetic patients. Different metrics may apply to specific patient populations. Standards of Medical Care in Diabetes(ADA). This test was performed on the Jarad angelina c503 platform. Effective 07/13/23, a change in test platforms from the [employer] to the Jarad angelina c503 may have shifted HbA1c results compared to historical results. Based on laboratory validation testing conducted at [facility], the Jarad platform relative to the Gtz platform had an average increase in HbA1c value of < or = 0.3%. This difference is within accepted variability established by the National Glycohemoglobin Standardization Program. Note that not all individuals will have had a shift in their results and direct comparisons between historical and current results for testing conducted on different platforms is not recommended. TSH W/REFLEX TO FT4 (35344) Reviewed date:10/01/2023 08:52:34 AM Interpretation: Performing Lab:CATIE [facility] Energy-[id number] Evy Singh, [id number] Nikos Jacobsen MD Notes/Report: TSH W/REFLEX TO FT4 1.26 Reference Range > or = 20 Years 0.40-4.50 Ranges First trimester 0.26-2.66 Second trimester 0.55-2.73 Third trimester 0.43-2.91 LIPID PANEL, SERUM Reviewed date:08/13/2023 12:00:00 AM Interpretation: Performing Lab: Notes/Report: CHOL/HDLC RATIO 2.1 (CALC) CHOLESTEROL, TOTAL 126 MG/DL HDL CHOLESTEROL 61 MG/DL LDL-CHOLESTEROL 56 MG/DL (CALC) NON HDL CHOLESTEROL 65 MG/DL (CALC) TRIGLYCERIDES 31 MG/DL Reason For Referral No Information Medications Medication SIG (Take, Route, Fr equency, Duration) Notes Start Date End Date Status ARIPiprazole 10 MG 1 tablet Oral Once a day for 90 days Active lamoTRIgine 200 MG 1 tablet Oral Once a day for 90 days Active hydrOXYzine HCl 10 MG 1 tablet Orally three times a day for 30 days As needed Active Immunizations Vaccine Route Administration Date Status Comme nts Novel [id number], preservative free Unknown 05/25/2020 Administered Pfizer Biontech Covid-19 Vac cine 2nd dose Unknown 09/17/2020 Administered Pfizer [employer]iontech Covid-19 Vac cine 2nd dose Unknown 10/08/2020 Administered Social History Tobacco Use: Social History Observation [...] less (1 point) Points 2 Interpretation Negative Section Notes: Substance UseDo you or have you ever smoked tobacco?: Never smokerHow many years have you smoked tobacco?: 3At what age did you start smoking tobacco?: 16How much tobacco do you smoke?: NoneDo you or have you ever used any other forms of tobacco or nicotine?: NoDo you or have you ever used e-cigarettes or vape?: Current user of electronic cigarettesDo you or have you ever used smokeless tobacco?: Never used smokeless tobaccoHow much tobacco do you chew?: noneWhat was the date of your most recent tobacco screening?: 06/08/2023Has tobacco cessation counseling been provided?: NoOn what date was tobacco cessation counseling provided?: 05/28/2021What is your level of alcohol consumption?: OccasionalHow many years have you consumed alcohol?: 6Have you ever been counseled for unhealthy alcohol use?: YesDo you use any illicit or recreational drugs?: No (Notes: hx sober 4 months)Have you used IV drugs?: NoWhat is your level of caffeine consumption?: ModerateEducation and OccupationWhat is the highest grade or level of school you have completed or the highest degree you have received?: High school graduateAre you currently in school?: YesAre you currently employed?: YesWho is your employer?: [employer]What 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 SexualityWhat is your relationship status?: SingleAre you sexually active?: YesDo you use protection during sex?: NoHow many children do you have?: 0Home and EnvironmentAre you a caregiver?: NoDo you have any siblings?: 3Do you have any pets?: YesDo you have smoke and carbon monoxide detectors in your home?: YesAre you passively exposed to smoke?: NoAre there any smokers in your house?: NoAre there any guns present in your home?: NoDiet and ExerciseWhat type of diet are you following?: RegularLifestyleDo you feel stressed (tense, restless, nervous, or anxious, or unable to sleep at night)?: To some extentDo you use your seat belt or car seat routinely?: YesAdvance DirectiveDo you have an advance directive?: NoDo you have a medical power of manager provider relations?: NoPublic Health and TravelHave you been to an area known to be high risk for COVID-19?: NoActivities of Daily LivingAre you able to care for yourself?: No (Notes: lives with family friend calls her mom)Are you blind or do you have difficulty seeing?: NoAre you deaf or do you have serious difficulty hearing? : NoDo you have difficulty concentrating, remembering or making decisions?: NoDo you have difficulty walking or climbing stairs?: NoDo you have difficulty dressing or bathing?: NoDo you have difficulty doing errands alone?: NoAre you able to walk?: Yes: walks without restrictionsDo you have transportation difficulties?: NoOtherDrugs Abused: Adderall, cocaine, Delta 8Education: 2 Year CollegeFamily history of heart disease?: NoHigh blood pressure: NoHigh Cholesterol: NoMarital status: SinglePast steroid/HgH use?: NoGender Identity and LGBTQ IdentityGender identity: Identifies as FemaleAssigned sex at : FemaleSexual orientation: Straight or heterosexual Problems Problem Type SNOMED Code ICD Code Onset Dates Problem Status W/U Status Risk Notes Problem Bipolar affective disorder, currently depressed, mild (497092288) Bipolar disorder, current episode depressed, mild (F31.31) 4 Active confirmed Problem Generalized anxiety disorder (88643408) Generalized anxiety disorder (F41.1) 4 Active confirmed Problem Posttraumatic stress disorder (46374945) Post-traumatic stress disorder, chronic (F43.12) 4 Active confirmed Problem Insomnia disorder related to another mental disorder (31854664) Insomnia due to other mental disorder (F51.05) 4 Active confirmed Problem Long-term current use of drug therapy (141209171) 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 [address] [facility] [address] [address] 08/13/2023 Herlinda Arriola Major depressive disorder, recurrent, mild F33.0 ; Other usp (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 Z79.899 ; Anorexia R63.0 ; Abnormal weight loss R63.4 ; Other fatigue R53.83 ; Bipolar disorder, current episode depressed, mild F31.31 ; Generalized anxiety disorder F41.1 ; Nausea R11.0 ; Post-traumatic stress disorder, chronic F43.12 and Insomnia due to other mental disorder F51.05 [facility] [address] [facility] [address] [place] [address] 08/21/2023 Herlinda Arriola Major depressive disorder, recurrent, mild F33.0 ; Post-traumatic stress disorder, chronic F43.12 ; Bipolar disorder, current episode depressed, mild F31.31 ; Generalized anxiety disorder F41.1 ; Insomnia due to other mental disorder F51.05 ; Abnormal weight loss R63.4 ; Nausea R11.0 ; Other fatigue R53.83 ; Anorexia R63.0 and Other long lines 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 Z79.899 [facility] [address] [facility] [address] [place] [address] 09/14/2023 Herlinda Arriola [facility] [employer], [facility] [address] [facility] [address] [place] [address] 10/15/2023 Herlinda Arriola Bipolar disorder, current episode depressed, mild F31.31 ; Generalized anxiety disorder F41.1 ; Insomnia due to other mental disorder F51.05 ; Post-traumatic stress disorder, chronic F43.12 and Other long lines 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 Z79.899 [facility] [address] [facility] [address] [place] [address] 11/12/2023 Herlinda Arriola Bipolar disorder, current episode depressed, mild F31.31 ; Generalized anxiety disorder F41.1 ; Insomnia due to other mental disorder F51.05 ; Post-traumatic stress disorder, chronic F43.12 and Other usp (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 Z79.899 [facility] [employer], [facility] [address] [facility] [address] [place] [address] 01/11/2024 Herlinda Arriola Bipolar disorder, current episode depressed, mild F31.31 ; Generalized anxiety disorder F41.1 ; Insomnia due to other mental disorder F51.05 ; Post-traumatic stress disorder, chronic F43.12 and Other long lines 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 Z79.899 [facility] [employer], [facility] [address] [place] [address] [place] [address] 02/01/2024 Herlinda Arriola Bipolar disorder, current episode depressed, mild F31.31 ; Generalized anxiety disorder F41.1 ; Insomnia due to other mental disorder F51.05 ; Post-traumatic stress disorder, chronic F43.12 and Other usp (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 Z79.899 [facility] [employer], [facility] [address] [facility] [address] [place] [address] 02/29/2024 Herlinda Arriola Bipolar disorder, current episode depressed, mild F31.31 ; Generalized anxiety disorder F41.1 ; Insomnia due to other mental disorder F51.05 ; Post-traumatic stress disorder, chronic F43.12 and 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 long lines 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 Z79.899 [facility] [employer] [facility] [address] [place] [address] 04/14/2024 Herlindahugo Arriola Bipolar disorder, current episode depressed, mild F31.31 ; Generalized anxiety disorder F41.1 ; Insomnia due to other mental disorder F51.05 ; Post-traumatic stress disorder, chronic F43.12 and Other long lines 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 Z79.899 [facility] [employer] [facility] [address] [facility] [address] [place] [address] 05/16/2024 Herlindahugo Arriola Bipolar disorder, current episode depressed, mild F31.31 ; Generalized anxiety disorder F41.1 ; Insomnia due to other mental disorder F51.05 ; Post-traumatic stress disorder, chronic F43.12 and Other long lines 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 Z79.899 [employer] [facility] [address] [facility] [address] [place] [address] 06/02/2024 Herlinda Arriola Bipolar disorder, current episode depressed, mild F31.31 ; Generalized anxiety disorder F41.1 ; Insomnia due to other mental disorder F51.05 ; Post-traumatic stress disorder, chronic F43.12 and Other usp (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 Z79.899 [facility] [employer], [facility] [address] [place] [address] [place] [address] 06/10/2024 Herlinda Thery Bipolar disorder, current episode depressed, mild F31.31 ; Generalized anxiety disorder F41.1 ; Insomnia due to other mental disorder F51.05 ; Post-traumatic stress disorder, chronic F43.12 and Other long lines 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 Z79.899 [facility], [facility] [address] [place] [address] 06/25/[address] [facility], [facility] [address] [facility] [address] [place] [address] 07/23/2023 Provider [facility], [facility] [address] [place] [address] [place] [address] 07/31/2023 Provider [facility], [facility] [address] [place] [address] [place] [address] 08/12/[address] [facility], [facility] [address] [facility] [address] [place] [address] 08/24/2023 Provider [facility], [facility] [address] [facility] [address] [place] [address] 09/05/2023 Provider [facility], [facility] [address] [address] 09/12/2023 Provider [facility], [facility] [address] [address] 09/13/2023 Provider [facility], [facility] [address] [address] 10/13/[address] [facility], [facility] [address] [address] 04/13/[address] [facility], [facility] [address] [address] 05/16/2024 Herlinda Arriola Assessments Encounter Date Diagnosis (ICD Code) Assessment Notes Treatment Notes Treatment Clinical Notes Section Notes 08/13/2023 Bipolar disorder, current episode depressed, mild (ICD-10 - F31.31) 08/13/2023 Major depressive disorder, recurrent, mild (ICD-10 - F33.0) 08/13/2023 Generalized anxiety disorder (ICD-10 - F41.1) 08/13/2023 Post-traumat ic stress disorder, chronic (ICD-10 - F43.12) 08/13/2023 Insomnia due to other mental disorder (ICD-10 - F51.05) 08/13/2023 Nausea (ICD-10 - R11.0) 08/13/2023 Other fatigue (ICD-10 - R53.83) 08/13/2023 Anorexia (ICD-10 - R63.0) 08/13/2023 Abnormal weight loss (ICD-10 - R63.4) 08/13/2023 Other long lines 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 (ICD-10 - Z79.899) 01/11/2024 Bipolar disorder, current episode depressed, mild (ICD-10 [...] as prescribed Abilify 10 mg at bedtime started 05/22/22- reported been off rx 4-5 days continue rx jaleel 05/19 [email or web address] Lamotrigine 100 mg - patient reported depression mild and been off rx 4-5 days and would like to GDR - will decrease Lamotrgrine 50 mg daily educated on Lamotrigine and watch for rash Lamotriginelamotrigine has a serious rashes requiring hospitalization and discontinue treatment includingSteven Noble syndrome rare case of toxic epidermal necrolysis and cache related deaths.Incidence with adjunct of epilepsy treatment 0.8% in 2 to 16 years old and 0.3% in adults, bipolarand other mood disorders incidence 0.8% this initial monotherapy and 0.13% as adjunctivetreatment.Oth er risk factor may include concomitant use of [...] dysmenorrhea, incoordination, anxiety,seizures, irritability, anorexia, xerostomia, and photosensitivity.Seriou s reactions include: Rash, severe; Stuart Noble syndrome; [...] FND 2. Generalized anxiety disorder -continue medications veterans adviser PRESCRIBES Xanax - educated to take as prescribed to help anxiety and panic hx Vistaril 10 mg- not taking patient reported caused passive SI thoughts 08/21/23 reported no SI no plans or intent no passive thoughts schedule therapy patient reported see counselor at school helps educated on importance therapy and labs discuss and educated rx options for anxiety, panic and depression - schedule therapy Jose M Prozac 20 mg daily - monitor for jaleel and hypomania 3. Insomnia disorder related to another mental disorder -stable 4. Chronic post-traumatic stress disorder -therapy 5. Long-term drug therapy - 08/21/2023 Bipolar disorder, current episode depressed, mild (ICD-10 - F31.31) 08/21/2023 Major depressive disorder, recurrent, mild (ICD-10 - F33.0) 08/21/2023 Generalized anxiety disorder (ICD-10 - F41.1) 08/21/2023 Post-traumat ic stress disorder, chronic (ICD-10 - F43.12) 08/21/2023 Insomnia due to other mental disorder (ICD-10 - F51.05) 08/21/2023 Nausea (ICD-10 - R11.0) 08/21/2023 Other fatigue (ICD-10 - R53.83) 08/21/2023 Anorexia (ICD-10 - R63.0) 08/21/2023 Abnormal weight loss (ICD-10 - R63.4) 08/21/2023 Other usp (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 (ICD-10 - Z79.899) 10/15/2023 Bipolar disorder, current episode depressed, mild (ICD-10 - F31.31) Bipolar Disorder: Care Instructions material was published, Learning About Movement Disorders From Antipsychotic Medicines material was published, Learning About How to Get Help During a Mental Health Crisis material was published, Learning About Long-Acting Injectable Antipsychotic Medicines material was published, Learning About Mood Disorders material was published 1. Bipolar I disorder, most recent episode depression - educated to take rx as prescribed Abilify 10 mg at bedtime started 1/26/23 jaleel 05/19 Lamotrigine 100 mg - patient requested leave from school for 10 days 08/13/23- 08/24/23 educated on Lamotrigine and watch for rash Lamotriginelamotrigine has a serious rashes requiring hospitalization and discontinue treatment includingSteven Noble syndrome rare case of toxic epidermal necrolysis and cache related deaths.Incidence with adjunct of epilepsy treatment 0.8% in 2 to 16 years old and 0.3% in adults, bipolarand other mood disorders incidence 0.8% this initial monotherapy and 0.13% as adjunctivetreatment.Oth er risk factor may include concomitant use of [...] dysmenorrhea, incoordination, anxiety,seizures, irritability, anorexia, xerostomia, and photosensitivity.Seriou s reactions include: Rash, severe; Stuart Noble syndrome; [...] need to see neurologist for her FND F31.31: Bipolar disorder, current episode depressed, mild 2. Generalized anxiety disorder -continue medications veterans adviser PRESCRIBES Xanax - educated to take as prescribed to help anxiety and panic hx Vistaril 10 mg- patient reported caused passive SI thoughts 08/21/23 reported no SI no plans or intent no passive thoughts schedule therapy patient reported see counselor at school helps educated on importance therapy and labs discuss and educated rx options for anxiety, panic and depression - add Prozac 20 mg daily - monitor for jaleel and hypomania F41.1: Generalized anxiety disordereducated to take as prescribed refer to therapy fluoxetine 20 mg capsule - Take 1 capsule(s) every day by oral route in the morning 3. Insomnia disorder related to another mental disorder -stable F51.05: Insomnia due to other mental disorder 4. Chronic post-traumatic stress disorder -therapy F43.12: Post-traumatic stress disorder, chronic 5. Long-term drug therapy - 10/15/2023 Generalized anxiety disorder (ICD-10 - F41.1) Generalized Anxiety Disorder: Care Instructions material was published, Learning About Generalized Anxiety Disorder material was published, Learning About Anxiety Disorders material was published 1. 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 Generalized anxiety disorder -continue medications veterans adviser PRESCRIBES Xanax - educated to take as prescribed to help anxiety and panic hx Vistaril 10 mg- patient reported caused passive SI thoughts 08/21/23 reported no SI no plans or intent no passive thoughts schedule therapy patient reported see counselor at school helps educated on importance therapy and labs discuss and educated rx options for anxiety, panic and depression - add Prozac 20 mg daily - monitor for jaleel and hypomania F41.1: Generalized anxiety disordereducated to take as prescribed refer to therapy fluoxetine 20 mg capsule - Take 1 capsule(s) every day by oral route in the morning 3. Insomnia disorder related to another mental disorder -stable F51.05: Insomnia due to other mental disorder 4. Chronic post-traumatic stress disorder -therapy F43.12: Post-traumatic stress disorder, chronic 5. Long-term drug therapy - 02/29/2024 Bipolar disorder, current episode depressed, mild (ICD-10 [...] as prescribed Abilify 10 mg at bedtime started 05/22/22- continue rx and educated on complaince rx jaleel 05/19 [email or web address].[email or web address]/nqscjhrq-qlu-gazml oey-dajdciscy-cueq/ Lamotrigine 100 mg - patient reported depression mild Patient reprted been taking Lamotrigine 100 mg last week and improved mood , did not decrease to 50 mg last visit educated on Lamotrigine and watch for rash Lamotriginelamotrigine has a serious rashes requiring hospitalization and discontinue treatment includingSteven Noble syndrome rare case of toxic epidermal necrolysis and cache related deaths.Incidence with adjunct of epilepsy treatment 0.8% in 2 to 16 years old and 0.3% in adults, bipolarand other mood disorders incidence 0.8% this initial monotherapy and 0.13% as adjunctivetreatment.Oth er risk factor may include concomitant use of [...] dysmenorrhea, incoordination, anxiety,seizures, irritability, anorexia, xerostomia, and photosensitivity.Seriou s reactions include: Rash, severe; Stuart Noble syndrome; [...] FND 2. Generalized anxiety disorder -continue medications veterans adviser PRESCRIBES Xanax - educated to take as [...] anxiety, panic and depression - schedule therapy Lucius cordova requested to stop Prozac 20 mg daily - D/C monitor for jaleel and hypomania 3. Insomnia disorder related to another mental disorder -stable 4. Chronic post-traumatic stress disorder -therapy 5. 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 Generalized anxiety disorder -continue medications veterans adviser PRESCRIBES Xanax - educated to take as [...] anxiety, panic and depression - schedule therapy Kavitha or Katarina monitor for jaleel and hypomania 3. Insomnia disorder related to another mental disorder -stable 4. Chronic post-traumatic stress disorder -therapy 5. Long-term drug therapy - 05/16/2024 Bipolar disorder, current episode depressed, mild [...] and educated on complaince rx jaleel 05/19 https://[email or web address].[email or web address]/vetmnjtm-jvp-feqjt hgi-iyaasxcnf-lzzq/ Increase Lamotrigine 200 mg - patient reported [...] 0.8% this initial monotherapy and 0.13% as adjunctivetreatment.Oth er risk factor may include concomitant use of [...] dysmenorrhea, incoordination, anxiety,seizures, irritability, anorexia, xerostomia, and photosensitivity.Seriou s reactions include: Rash, severe; Stuart Noble syndrome; [...] FND 2. Generalized anxiety disorder -continue medications veterans adviser PRESCRIBES Xanax - educated to take as [...] -therapy 5. Long-term drug therapy - 06/02/2024 Bipolar disorder, current episode depressed, mild [...] and educated on complaince rx jaleel 05/19 https://[email or web address].Narrative/ndersxjd-nau-qnmpc wnk-fwzutrbkm-cyed/ Lamotrigine 200 mg - patient reported depression [...] 0.8% this initial monotherapy and 0.13% as adjunctivetreatment.Oth er risk factor may include concomitant use of [...] dysmenorrhea, incoordination, anxiety,seizures, irritability, anorexia, xerostomia, and photosensitivity.Seriou s reactions include: Rash, severe; Stuart Noble syndrome; [...] FND 2. Generalized anxiety disorder -continue medications veterans adviser PRESCRIBES Xanax - educated to take as [...] -therapy 5. Long-term drug therapy - 06/10/2024 Bipolar disorder, current episode depressed, mild [...] and educated on complaince rx jaleel 05/19 https://www.Narrative/kyihmxdi-ojg-ghxce sdw-lknygasxa-jiqj/ Lamotrigine 200 mg - patient reported depression [...] 0.8% this initial monotherapy and 0.13% as adjunctivetreatment.Oth er risk factor may include concomitant use of [...] dysmenorrhea, incoordination, anxiety,seizures, irritability, anorexia, xerostomia, and photosensitivity.Seriou s reactions include: Rash, severe; Stuart Noble syndrome; [...] FND 2. Generalized anxiety disorder -continue medications veterans adviser PRESCRIBES Xanax - educated to take as [...] disorder -therapy 5. 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 Generalized anxiety disorder -continue medications veterans adviser PRESCRIBES Xanax - educated to take as prescribed to help anxiety and panic hx Vistaril 10 mg- educated on rx Will Add Visatril 10 mg three times as needed for anxiety and panic patient reported caused passive SI thoughts 08/21/23 reported no SI no plans or intent no passive thoughts schedule therapy patient reported see counselor at school helps educated on importance therapy and labs discuss and educated rx options for anxiety, panic and depression - schedule therapy Kavitha- Prozac 20 mg daily - monitor for jaleel and hypomania 3. Insomnia disorder related to another mental disorder -stable 4. Chronic post-traumatic stress disorder -therapy 5. Long-term drug therapy - 11/12/2023 Bipolar disorder, current episode depressed, mild (ICD-10 - F31.31) Bipolar Disorder: Care Instructions material was published, Learning About Movement Disorders From Antipsychotic Medicines material was published, Learning About How to Get Help During a Mental Health Crisis material was published, Learning About Long-Acting Injectable Antipsychotic Medicines material was published, Learning About Mood Disorders material was published 1. 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 Generalized anxiety disorder -continue medications veterans adviser PRESCRIBES Xanax - educated to take as prescribed to help anxiety and panic hx Vistaril 10 mg- patient reported caused passive SI thoughts 08/21/23 reported no SI no plans or intent no passive thoughts schedule therapy patient reported see counselor at school helps educated on importance therapy and labs discuss and educated rx options for anxiety, panic and depression - schedule therapy Jose M Prozac 20 mg daily - monitor for jaleel and hypomania F41.1: Generalized anxiety disordereducated to take as prescribed refer to therapy fluoxetine 20 mg capsule - Take 1 capsule(s) every day by oral route in the morning 3. Insomnia disorder related to another mental disorder -stable F51.05: Insomnia due to other mental disorder 4. Chronic post-traumatic stress disorder -therapy F43.12: Post-traumatic stress disorder, chronic 5. Long-term drug therapy - 11/12/2023 Generalized anxiety disorder (ICD-10 - F41.1) Generalized Anxiety Disorder: Care Instructions material was published, Learning About Generalized Anxiety Disorder material was published, Learning About Anxiety Disorders material was published 1. 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 Generalized anxiety disorder -continue medications veterans adviser PRESCRIBES Xanax - educated to take as prescribed to help anxiety and panic hx Vistaril 10 mg- patient reported caused passive SI thoughts 08/21/23 reported no SI no plans or intent no passive thoughts schedule therapy patient reported see counselor at school helps educated on importance therapy and labs discuss and educated rx options for anxiety, panic and depression - schedule therapy Jose M Prozac 20 mg daily - monitor for jaleel and hypomania F41.1: Generalized anxiety disordereducated to take as prescribed refer to therapy fluoxetine 20 mg capsule - Take 1 capsule(s) every day by oral route in the morning 3. Insomnia disorder related to another mental disorder -stable F51.05: Insomnia due to other mental disorder 4. Chronic post-traumatic stress disorder -therapy F43.12: Post-traumatic stress disorder, chronic 5. 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 Generalized anxiety disorder -continue medications veterans adviser PRESCRIBES Xanax - educated to take as prescribed to help anxiety and panic hx Vistaril 10 mg- educated on rx Will Add Visatril 10 mg three times as needed for anxiety and panic patient reported caused passive SI thoughts 08/21/23 reported no SI no plans or intent no passive thoughts schedule therapy patient reported see counselor at school helps educated on importance therapy and labs discuss and educated rx options for anxiety, panic and depression - schedule therapy Kavitha- Prozac 20 mg daily - monitor for jaleel and hypomania 3. Insomnia [...] and educated on complaince rx jaleel 05/19 https://[email or web address] .[email or web address]/trbdwmbc-fqj-slush pbi-irmyfkiwr-fuzf/ Lamotrigine 200 mg - patient reported depression [...] 0.8% this initial monotherapy and 0.13% as adjunctivetreatment.Oth er risk factor may include concomitant use of [...] dysmenorrhea, incoordination, anxiety,seizures, irritability, anorexia, xerostomia, and photosensitivity.Seriou s reactions include: Rash, severe; Stuart Noble syndrome; [...] FND 2. Generalized anxiety disorder -continue medications veterans adviser PRESCRIBES Xanax - educated to take as [...] and educated on complaince rx jaleel 05/19 https://[email or web address].[email or web address]/bybekupo-fov-lfxfw jhk-otdnkxfuh-ghmg/ Lamotrigine 200 mg - patient reported depression [...] 0.8% this initial monotherapy and 0.13% as adjunctivetreatment.Oth er risk factor may include concomitant use of [...] dysmenorrhea, incoordination, anxiety,seizures, irritability, anorexia, xerostomia, and photosensitivity.Seriou s reactions include: Rash, severe; Stuart Noble syndrome; [...] FND 2. Generalized anxiety disorder -continue medications veterans adviser PRESCRIBES Xanax - educated to take as [...] and educated on complaince rx jaleel 05/19 https://[email or web address].Narrative/gwbkwreq-cpk-kdykz iqx-mbmzvyrfa-odny/ Increase Lamotrigine 200 mg - patient reported [...] 0.8% this initial monotherapy and 0.13% as adjunctivetreatment.Oth er risk factor may include concomitant use of [...] dysmenorrhea, incoordination, anxiety,seizures, irritability, anorexia, xerostomia, and photosensitivity.Seriou s reactions include: Rash, severe; Stuart Noble syndrome; [...] FND 2. Generalized anxiety disorder -continue medications veterans adviser PRESCRIBES Xanax - educated to take as prescribed to help anxiety and panic hx Vistaril 10 mg- educated on rx Visatril 10 mg three times as needed for anxiety and panic patient reported caused passive SI thoughts 4/26/24 reported no SI no plans or intent [...] disorder -therapy 5. 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 Generalized anxiety disorder -continue medications veterans adviser PRESCRIBES Xanax - educated to take as [...] anxiety, panic and depression - schedule therapy Kavitha or Katarina monitor for jaleel and hypomania 3. Insomnia disorder related to another mental disorder -stable 4. Chronic post-traumatic stress disorder -therapy 5. 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 Generalized anxiety disorder -continue medications veterans adviser PRESCRIBES Xanax - educated to take as [...] anxiety, panic and depression - schedule therapy Lucius cordova requested to stop Prozac 20 mg daily - D/C monitor for jaleel and hypomania 3. Insomnia disorder related to another mental disorder -stable 4. Chronic post-traumatic stress disorder -therapy 5. Long-term drug therapy - 10/15/2023 Insomnia due to other mental disorder (ICD-10 - F51.05) 1. 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 Generalized anxiety disorder -continue medications veterans adviser PRESCRIBES Xanax - educated to take as prescribed to help anxiety and panic hx Vistaril 10 mg- patient reported caused passive SI thoughts 08/21/23 reported no SI no plans or intent no passive thoughts schedule therapy patient reported see counselor at school helps educated on importance therapy and labs discuss and educated rx options for anxiety, panic and depression - add Prozac 20 mg daily - monitor for jaleel and hypomania F41.1: Generalized anxiety disordereducated to take as prescribed refer to therapy fluoxetine 20 mg capsule - Take 1 capsule(s) every day by oral route in the morning 3. Insomnia disorder related to another mental disorder -stable F51.05: Insomnia due to other mental disorder 4. Chronic post-traumatic stress disorder -therapy F43.12: Post-traumatic stress disorder, chronic 5. 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 Generalized anxiety disorder -continue medications veterans adviser PRESCRIBES Xanax - educated to take as prescribed to help anxiety and panic hx Vistaril 10 mg- not taking patient reported caused passive SI thoughts 08/21/23 reported no SI no plans or intent no passive thoughts schedule therapy patient reported see counselor at school helps educated on importance therapy and labs discuss and educated rx options for anxiety, panic and depression - schedule therapy Jose M Prozac 20 mg daily - monitor for jaleel and hypomania 3. Insomnia disorder related to another mental disorder -stable 4. Chronic post-traumatic stress disorder -therapy 5. Long-term drug therapy - 02/29/2024 Insomnia due to other mental disorder (ICD-10 - F51.05) 1. 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 Insomnia disorder related to another mental disorder -stable 4. Chronic post-traumatic stress disorder -therapy 5. Long-term drug therapy - 04/14/2024 Insomnia due to other mental disorder (ICD-10 - F51.05) 1. 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 Generalized anxiety disorder -continue medications veterans adviser PRESCRIBES Xanax - educated to take as [...] anxiety, panic and depression - schedule therapy Kavitha or Katarina monitor for jaleel and hypomania 3. Insomnia [...] and educated on complaince rx jaleel 05/19 [email or web address]://[email or web address].[email or web address]-hbg-parzo sow-jzcjtbpit-zpra/ Increase Lamotrigine 200 mg - patient reported [...] 0.8% this initial monotherapy and 0.13% as adjunctivetreatment.Oth er risk factor may include concomitant use of [...] dysmenorrhea, incoordination, anxiety,seizures, irritability, anorexia, xerostomia, and photosensitivity.Seriou s reactions include: Rash, severe; Stuart Noble syndrome; [...] FND 2. Generalized anxiety disorder -continue medications veterans adviser PRESCRIBES Xanax - educated to take as [...] and educated on complaince rx jaleel 05/19 https://[email or web address].[email or web address]/gufxzgck-peg-bmcvr mtp-ymlarhtyv-lcsp/ Lamotrigine 200 mg - patient reported depression [...] 0.8% this initial monotherapy and 0.13% as adjunctivetreatment.Oth er risk factor may include concomitant use of [...] dysmenorrhea, incoordination, anxiety,seizures, irritability, anorexia, xerostomia, and photosensitivity.Seriou s reactions include: Rash, severe; Stuart Noble syndrome; [...] FND 2. Generalized anxiety disorder -continue medications veterans adviser PRESCRIBES Xanax - educated to take as [...] and educated on complaince rx jaleel 05/19 [email or web address]-tnu-tkxwe xjl-jhtbqehfv-hema/ Lamotrigine 200 mg - patient reported depression [...] 0.8% this initial monotherapy and 0.13% as adjunctivetreatment.Oth er risk factor may include concomitant use of [...] dysmenorrhea, incoordination, anxiety,seizures, irritability, anorexia, xerostomia, and photosensitivity.Seriou s reactions include: Rash, severe; Stuart Noble syndrome; [...] FND 2. Generalized anxiety disorder -continue medications veterans adviser PRESCRIBES Xanax - educated to take as [...] disorder -therapy 5. Long-term drug therapy - 11/12/2023 Insomnia due to other mental disorder (ICD-10 - F51.05) 1. Bipolar I disorder, most recent episode depression - educated to take rx as prescribed Abilify 10 mg at bedtime started 05/22/22 jaleel 05/19 [email or web address]-ini-fxlxx ddr-cwjlcjxqe-sabk/ Lamotrigine 100 mg - patient requested leave from school for 10 days 08/13/23- 08/24/23 educated on Lamotrigine and watch for rash Lamotriginelamotrigine has a serious rashes requiring hospitalization and discontinue treatment includingSteven Noble syndrome rare case of toxic epidermal necrolysis and cache related deaths.Incidence with adjunct of epilepsy treatment 0.8% in 2 to 16 years old and 0.3% in adults, bipolarand other mood disorders incidence 0.8% this initial monotherapy and 0.13% as adjunctivetreatment.Oth er risk factor may include concomitant use of [...] dysmenorrhea, incoordination, anxiety,seizures, irritability, anorexia, xerostomia, and photosensitivity.Seriou s reactions include: Rash, severe; Stuart Noble syndrome; [...] need to see neurologist for her FND F31.31: Bipolar disorder, current episode depressed, mild 2. Generalized anxiety disorder -continue medications veterans adviser PRESCRIBES Xanax - educated to take as prescribed to help anxiety and panic hx Vistaril 10 mg- patient reported caused passive SI thoughts 08/21/23 reported no SI no plans or intent no passive thoughts schedule therapy patient reported see counselor at school helps educated on importance therapy and labs discuss and educated rx options for anxiety, panic and depression - schedule therapy Jose M Prozac 20 mg daily - monitor for jaleel and hypomania F41.1: Generalized anxiety disordereducated to take as prescribed refer to therapy fluoxetine 20 mg capsule - Take 1 capsule(s) every day by oral route in the morning 3. Insomnia disorder related to another mental disorder -stable F51.05: Insomnia due to other mental disorder 4. Chronic post-traumatic stress disorder -therapy F43.12: Post-traumatic stress disorder, chronic 5. Long-term drug therapy - 02/01/2024 Insomnia due to other mental disorder (ICD-10 - F51.05) 1. Bipolar I disorder, most recent episode depression - educated to take rx as prescribed Abilify 10 mg at bedtime started 05/22/22- continue rx and educated on complaince rx jaleel 05/19 [email or web address]-lkh-[email or web address] ygb-wxfhupegt-ikey/ Lamotrigine 100 mg - patient reported depression mild and been off rx 4-5 days and would like to GDR - will decrease Lamotrgrine 50 mg daily educated on Lamotrigine and watch for rash Lamotriginelamotrigine has a serious rashes requiring hospitalization and discontinue treatment includingSteven Noble syndrome rare case of toxic epidermal necrolysis and cache related deaths.Incidence with adjunct of epilepsy treatment 0.8% in 2 to 16 years old and 0.3% in adults, bipolarand other mood disorders incidence 0.8% this initial monotherapy and 0.13% as adjunctivetreatment.Oth er risk factor may include concomitant use of [...] dysmenorrhea, incoordination, anxiety,seizures, irritability, anorexia, xerostomia, and photosensitivity.Seriou s reactions include: Rash, severe; Stuart Noble syndrome; [...] FND 2. Generalized anxiety disorder -continue medications veterans adviser PRESCRIBES Xanax - educated to take as prescribed to help anxiety and panic hx Vistaril 10 mg- educated on rx Will Add Visatril 10 mg three times as needed for anxiety and panic patient reported caused passive SI thoughts 08/21/23 reported no SI no plans or intent no passive thoughts schedule therapy patient reported see counselor at school helps educated on importance therapy and labs discuss and educated rx options for anxiety, panic and depression - schedule therapy Kavitha- Prozac 20 mg daily - monitor for jaleel and hypomania 3. Insomnia disorder related to another mental disorder -stable 4. Chronic post-traumatic stress disorder -therapy 5. Long-term drug therapy - 01/11/2024 Insomnia due to other mental disorder (ICD-10 - F51.05) 1. Bipolar I disorder, most recent episode depression - educated to take rx as prescribed Abilify 10 mg at bedtime started 05/22/22- reported been off rx 4-5 days continue rx jaleel 05/19 [email or web address]-[email or web address] yar-lyxxqxarj-txel/ Lamotrigine 100 mg - patient reported depression mild and been off rx 4-5 days and would like to GDR - will decrease Lamotrgrine 50 mg daily educated on Lamotrigine and watch for rash Lamotriginelamotrigine has a serious rashes requiring hospitalization and discontinue treatment includingSteven Noble syndrome rare case of toxic epidermal necrolysis and cache related deaths.Incidence with adjunct of epilepsy treatment 0.8% in 2 to 16 years old and 0.3% in adults, bipolarand other mood disorders incidence 0.8% this initial monotherapy and 0.13% as adjunctivetreatment.Oth er risk factor may include concomitant use of [...] dysmenorrhea, incoordination, anxiety,seizures, irritability, anorexia, xerostomia, and photosensitivity.Seriou s reactions include: Rash, severe; Stuart Noble syndrome; [...] FND 2. Generalized anxiety disorder -continue medications veterans adviser PRESCRIBES Xanax - educated to take as prescribed to help anxiety and panic hx Vistaril 10 mg- not taking patient reported caused passive SI thoughts 08/21/23 reported no SI no plans or intent no passive thoughts schedule therapy patient reported see counselor at school helps educated on importance therapy and labs discuss and educated rx options for anxiety, panic and depression - schedule therapy Jose M Prozac 20 mg daily - monitor for jaleel and hypomania 3. Insomnia disorder related to another mental disorder -stable 4. Chronic post-traumatic stress disorder -therapy 5. Long-term drug therapy - 10/15/2023 Post-traumat ic stress disorder, chronic (ICD-10 - F43.12) Post-Traumatic Stress Disorder (PTSD): Care Instructions material was published 1. 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 Generalized anxiety disorder -continue medications veterans adviser PRESCRIBES Xanax - educated to take as prescribed to help anxiety and panic hx Vistaril 10 mg- patient reported caused passive SI thoughts 08/21/23 reported no SI no plans or intent no passive thoughts schedule therapy patient reported see counselor at school helps educated on importance therapy and labs discuss and educated rx options for anxiety, panic and depression - add Prozac 20 mg daily - monitor for jaleel and hypomania F41.1: Generalized anxiety disordereducated to take as prescribed refer to therapy fluoxetine 20 mg capsule - Take 1 capsule(s) every day by oral route in the morning 3. Insomnia disorder related to another mental disorder -stable F51.05: Insomnia due to other mental disorder 4. Chronic post-traumatic stress disorder -therapy F43.12: Post-traumatic stress disorder, chronic 5. Long-term drug therapy - 11/12/2023 Post-traumat ic stress disorder, chronic (ICD-10 - F43.12) Post-Traumatic Stress Disorder (PTSD): Care Instructions material was published 1. Bipolar I disorder, most recent episode depression - educated to take rx as prescribed Abilify 10 mg at bedtime started 05/22/22 jaleel 05/19 [email or web address]://[email or web address].[email or web address]/zqbsrkqy-eoc-xftgn ncl-bokwwjasv-wfxa/ Lamotrigine 100 mg - patient requested leave from school for 10 days 08/13/23- 08/24/23 educated on Lamotrigine and watch for rash Lamotriginelamotrigine has a serious rashes requiring hospitalization and discontinue treatment includingSteven Noble syndrome rare case of toxic epidermal necrolysis and cache related deaths.Incidence with adjunct of epilepsy treatment 0.8% in 2 to 16 years old and 0.3% in adults, bipolarand other mood disorders incidence 0.8% this initial monotherapy and 0.13% as adjunctivetreatment.Oth er risk factor may include concomitant use of [...] dysmenorrhea, incoordination, anxiety,seizures, irritability, anorexia, xerostomia, and photosensitivity.Seriou s reactions include: Rash, severe; Stuart Noble syndrome; [...] need to see neurologist for her FND F31.31: Bipolar disorder, current episode depressed, mild 2. Generalized anxiety disorder -continue medications veterans adviser PRESCRIBES Xanax - educated to take as prescribed to help anxiety and panic hx Vistaril 10 mg- patient reported caused passive SI thoughts 08/21/23 reported no SI no plans or intent no passive thoughts schedule therapy patient reported see counselor at school helps educated on importance therapy and labs discuss and educated rx options for anxiety, panic and depression - schedule therapy Jose M Prozac 20 mg daily - monitor for jaleel and hypomania F41.1: Generalized anxiety disordereducated to take as prescribed refer to therapy fluoxetine 20 mg capsule - Take 1 capsule(s) every day by oral route in the morning 3. Insomnia disorder related to another mental disorder -stable F51.05: Insomnia due to other mental disorder 4. Chronic post-traumatic stress disorder -therapy F43.12: Post-traumatic stress disorder, chronic 5. Long-term drug therapy - 02/01/2024 Post-traumat ic stress disorder, chronic (ICD-10 - F43.12) Post-Traumatic Stress Disorder (PTSD): Care Instructions material was published, Post-Traumatic Stress Disorder (PTSD): Care Instructions material was published 1. Bipolar I disorder, most recent episode depression - educated to take rx as prescribed Abilify 10 mg at bedtime started 05/22/22- continue rx and educated on complaince rx jaleel 05/19 https://[email or web address]-tgt-jdwtn rrp-uqrjyhjwl-xhxj/ Lamotrigine 100 mg - patient reported depression mild and been off rx 4-5 days and would like to GDR - will decrease Lamotrgrine 50 mg daily educated on Lamotrigine and watch for rash Lamotriginelamotrigine has a serious rashes requiring hospitalization and discontinue treatment includingSteven Noble syndrome rare case of toxic epidermal necrolysis and cache related deaths.Incidence with adjunct of epilepsy treatment 0.8% in 2 to 16 years old and 0.3% in adults, bipolarand other mood disorders incidence 0.8% this initial monotherapy and 0.13% as adjunctivetreatment.Oth er risk factor may include concomitant use of [...] dysmenorrhea, incoordination, anxiety,seizures, irritability, anorexia, xerostomia, and photosensitivity.Seriou s reactions include: Rash, severe; Stuart Noble syndrome; [...] FND 2. Generalized anxiety disorder -continue medications veterans adviser PRESCRIBES Xanax - educated to take as prescribed to help anxiety and panic hx Vistaril 10 mg- educated on rx Will Add Visatril 10 mg three times as needed for anxiety and panic patient reported caused passive SI thoughts 08/21/23 reported no SI no plans or intent no passive thoughts schedule therapy patient reported see counselor at school helps educated on importance therapy and labs discuss and educated rx options for anxiety, panic and depression - schedule therapy Kavitha- Prozac 20 mg daily - monitor for jaleel and hypomania 3. Insomnia disorder related to another mental disorder -stable 4. Chronic post-traumatic stress disorder -therapy 5. Long-term drug therapy - 06/10/2024 Post-traumat ic stress disorder, chronic (ICD-10 - F43.12) Post-Traumatic Stress Disorder (PTSD): Care Instructions material was published, Post-Traumatic Stress Disorder (PTSD): Care Instructions material was published 1. Bipolar I disorder, most recent episode depression - educated to take rx as prescribed Abilify 10 mg at bedtime continue rx and educated on complaince rx jaleel 05/19 https://[email or web address].[email or web address]/lbqkclsx-pvw-zgbrk shi-usieqlzxa-jude/ Lamotrigine 200 mg - patient reported depression [...] 0.8% this initial monotherapy and 0.13% as adjunctivetreatment.Oth er risk factor may include concomitant use of [...] dysmenorrhea, incoordination, anxiety,seizures, irritability, anorexia, xerostomia, and photosensitivity.Seriou s reactions include: Rash, severe; Stuart Noble syndrome; [...] FND 2. Generalized anxiety disorder -continue medications veterans adviser PRESCRIBES Xanax - educated to take as [...] -therapy 5. Long-term drug therapy - 06/02/2024 Post-traumat ic stress disorder, chronic (ICD-10 - F43.12) Post-Traumatic Stress Disorder (PTSD): Care Instructions material was published, Post-Traumatic Stress Disorder (PTSD): Care Instructions material was published 1. Bipolar I disorder, most recent episode depression - educated to take rx as prescribed Abilify 10 mg at bedtime continue rx and educated on complaince rx jaleel 05/19 https://[email or web address].[email or web address]-biy-kwowl dmq-mhrbplbkx-gxbu/ Lamotrigine 200 mg - patient reported depression [...] 0.8% this initial monotherapy and 0.13% as adjunctivetreatment.Oth er risk factor may include concomitant use of [...] dysmenorrhea, incoordination, anxiety,seizures, irritability, anorexia, xerostomia, and photosensitivity.Seriou s reactions include: Rash, severe; Stuart Noble syndrome; [...] FND 2. Generalized anxiety disorder -continue medications veterans adviser PRESCRIBES Xanax - educated to take as [...] -therapy 5. Long-term drug therapy - 05/16/2024 Post-traumat ic stress disorder, chronic (ICD-10 - F43.12) Post-Traumatic Stress Disorder (PTSD): Care Instructions material was published, Post-Traumatic Stress Disorder (PTSD): Care Instructions material was published 1. Bipolar I disorder, most recent episode depression - educated to take rx as prescribed Abilify 10 mg at bedtime continue rx and educated on complaince rx jaleel 05/19 https://[email or web address] .Tagstr/zsacknba-jlr-fbbuh dhj-xhqlmctcu-bsxe/ Increase Lamotrigine 200 mg - patient reported [...] 0.8% this initial monotherapy and 0.13% as adjunctivetreatment.Oth er risk factor may include concomitant use of [...] dysmenorrhea, incoordination, anxiety,seizures, irritability, anorexia, xerostomia, and photosensitivity.Seriou s reactions include: Rash, severe; Stuart Noble syndrome; [...] FND 2. Generalized anxiety disorder -continue medications veterans adviser PRESCRIBES Xanax - educated to take as [...] disorder -therapy 5. Long-term drug therapy - 04/14/2024 Post-traumat ic stress disorder, chronic (ICD-10 - F43.12) Post-Traumatic Stress Disorder (PTSD): Care Instructions material was published, Post-Traumatic Stress Disorder (PTSD): Care Instructions material was published 1. Bipolar I disorder, most recent episode depression - educated to take rx as prescribed Abilify 10 mg at bedtime started 05/22/22- continue rx and educated on complaince rx jaleel 05/19 https://www.[email or web address]-ejc-cbhob zos-zfboyubev-ruyh/ Increase Lamotrigine 150 mg - patient reported depression increase educated on Lamotrigine and watch for rash Lamotriginelamotrigine has a serious rashes requiring hospitalization and discontinue treatment includingSteven Noble syndrome rare case of toxic epidermal necrolysis and cache related deaths.Incidence with adjunct of epilepsy treatment 0.8% in 2 to 16 years old and 0.3% in adults, bipolarand other mood disorders incidence 0.8% this initial monotherapy and 0.13% as adjunctivetreatment.Oth er risk factor may include concomitant use of [...] dysmenorrhea, incoordination, anxiety,seizures, irritability, anorexia, xerostomia, and photosensitivity.Seriou s reactions include: Rash, severe; Stuart Noble syndrome; [...] FND 2. Generalized anxiety disorder -continue medications veterans adviser PRESCRIBES Xanax - educated to take as [...] anxiety, panic and depression - schedule therapy Kavitha or Katarina monitor for jaleel and hypomania 3. Insomnia disorder related to another mental disorder -stable 4. Chronic post-traumatic stress disorder -therapy 5. Long-term drug therapy - 10/15/2023 Other [facility] (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 (ICD-10 - Z79.899) Medication Refill: Care Instructions material was published 1. 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 Generalized anxiety disorder -continue medications veterans adviser PRESCRIBES Xanax - educated to take as prescribed to help anxiety and panic hx Vistaril 10 mg- patient reported caused passive SI thoughts 08/21/23 reported no SI no plans or intent no passive thoughts schedule therapy patient reported see counselor at school helps educated on importance therapy and labs discuss and educated rx options for anxiety, panic and depression - add Prozac 20 mg daily - monitor for jaleel and hypomania F41.1: Generalized anxiety disordereducated to take as prescribed refer to therapy fluoxetine 20 mg capsule - Take 1 capsule(s) every day by oral route in the morning 3. Insomnia disorder related to another mental disorder -stable F51.05: Insomnia due to other mental disorder 4. Chronic post-traumatic stress disorder -therapy F43.12: Post-traumatic stress disorder, chronic 5. Long-term drug therapy - 02/29/2024 Post-traumat ic stress disorder, chronic (ICD-10 - F43.12) Post-Traumatic Stress Disorder (PTSD): Care Instructions material was published, Post-Traumatic Stress Disorder (PTSD): Care Instructions material was published 1. Bipolar I disorder, most recent episode depression - educated to take rx as prescribed Abilify 10 mg at bedtime started 05/22/22- continue rx and educated on complaince rx jaleel 05/19 https://[email or web address].[email or web address]-keo-selnl gpp-yoxwnvahs-ghpv/ Lamotrigine 100 mg - patient reported depression mild Patient reprted been taking Lamotrigine 100 mg last week and improved mood , did not decrease to 50 mg last visit educated on Lamotrigine and watch for rash Lamotriginelamotrigine has a serious rashes requiring hospitalization and discontinue treatment includingSteven Noble syndrome rare case of toxic epidermal necrolysis and cache related deaths.Incidence with adjunct of epilepsy treatment 0.8% in 2 to 16 years old and 0.3% in adults, bipolarand other mood disorders incidence 0.8% this initial monotherapy and 0.13% as adjunctivetreatment.Oth er risk factor may include concomitant use of [...] dysmenorrhea, incoordination, anxiety,seizures, irritability, anorexia, xerostomia, and photosensitivity.Seriou s reactions include: Rash, severe; Stuart Noble syndrome; [...] FND 2. Generalized anxiety disorder -continue medications veterans adviser PRESCRIBES Xanax - educated to take as [...] anxiety, panic and depression - schedule therapy Lucius cordova requested to stop Prozac 20 mg daily - D/C monitor for jaleel and hypomania 3. Insomnia disorder related to another mental disorder -stable 4. Chronic post-traumatic stress disorder -therapy 5. Long-term drug therapy - 01/11/2024 Post-traumat ic stress disorder, chronic (ICD-10 - F43.12) Post-Traumatic Stress Disorder (PTSD): Care Instructions material was published, Post-Traumatic Stress Disorder (PTSD): Care Instructions material was published 1. Bipolar I disorder, most recent episode depression - educated to take rx as prescribed Abilify 10 mg at bedtime started 05/22/22- reported been off rx 4-5 days continue rx jaleel 05/19 [email or web address]/ Lamotrigine 100 mg - patient reported depression mild and been off rx 4-5 days and would like to GDR - will decrease Lamotrgrine 50 mg daily educated on Lamotrigine and watch for rash Lamotriginelamotrigine has a serious rashes requiring hospitalization and discontinue treatment includingSteven Noble syndrome rare case of toxic epidermal necrolysis and cache related deaths.Incidence with adjunct of epilepsy treatment 0.8% in 2 to 16 years old and 0.3% in adults, bipolarand other mood disorders incidence 0.8% this initial monotherapy and 0.13% as adjunctivetreatment.Oth er risk factor may include concomitant use of [...] dysmenorrhea, incoordination, anxiety,seizures, irritability, anorexia, xerostomia, and photosensitivity.Seriou s reactions include: Rash, severe; Stuart Noble syndrome; [...] FND 2. Generalized anxiety disorder -continue medications veterans adviser PRESCRIBES Xanax - educated to take as prescribed to help anxiety and panic hx Vistaril 10 mg- not taking patient reported caused passive SI thoughts 08/21/23 reported no SI no plans or intent no passive thoughts schedule therapy patient reported see counselor at school helps educated on importance therapy and labs discuss and educated rx options for anxiety, panic and depression - schedule therapy Jose M Prozac 20 mg daily - monitor for jaleel and hypomania 3. Insomnia disorder related to another mental disorder -stable 4. Chronic post-traumatic stress disorder -therapy 5. Long-term drug therapy - 02/29/2024 Other [facility]p (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 (ICD-10 - Z79.899) Medication Refill: Care Instructions material was published, Medication Refill: Care Instructions material was published 1. Bipolar I disorder, most recent episode depression - educated to take rx as prescribed Abilify 10 mg at bedtime started 05/22/22- continue rx and educated on complaince rx jaleel 05/19 [email or web address]-[email or web address] jfh-wglfttfzv-jswi/ Lamotrigine 100 mg - patient reported depression mild Patient reprted been taking Lamotrigine 100 mg last week and improved mood , did not decrease to 50 mg last visit educated on Lamotrigine and watch for rash Lamotriginelamotrigine has a serious rashes requiring hospitalization and discontinue treatment includingSteven Noble syndrome rare case of toxic epidermal necrolysis and cache related deaths.Incidence with adjunct of epilepsy treatment 0.8% in 2 to 16 years old and 0.3% in adults, bipolarand other mood disorders incidence 0.8% this initial monotherapy and 0.13% as adjunctivetreatment.Oth er risk factor may include concomitant use of [...] dysmenorrhea, incoordination, anxiety,seizures, irritability, anorexia, xerostomia, and photosensitivity.Seriou s reactions include: Rash, severe; Stuart Noble syndrome; [...] FND 2. 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 Insomnia disorder related to another mental disorder -stable 4. Chronic post-traumatic stress disorder -therapy 5. 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 Bipolar I disorder, most recent episode depression - educated to take rx as prescribed Abilify 10 mg at bedtime started 05/22/22- continue rx and educated on complaince rx jaleel 05/19 [email or web address]-[email or web address] paq-vnsxkwpmk-phsa/ Increase Lamotrigine 150 mg - patient reported depression increase educated on Lamotrigine and watch for rash Lamotriginelamotrigine has a serious rashes requiring hospitalization and discontinue treatment includingSteven Noble syndrome rare case of toxic epidermal necrolysis and cache related deaths.Incidence with adjunct of epilepsy treatment 0.8% in 2 to 16 years old and 0.3% in adults, bipolarand other mood disorders incidence 0.8% this initial monotherapy and 0.13% as adjunctivetreatment.Oth er risk factor may include concomitant use of [...] dysmenorrhea, incoordination, anxiety,seizures, irritability, anorexia, xerostomia, and photosensitivity.Seriou s reactions include: Rash, severe; Stuart Noble syndrome; [...] FND 2. Generalized anxiety disorder -continue medications veterans adviser PRESCRIBES Xanax - educated to take as [...] anxiety, panic and depression - schedule therapy Kavitha or Katarina monitor for jaleel and hypomania 3. Insomnia disorder related to another mental disorder -stable 4. Chronic post-traumatic stress disorder -therapy 5. 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 Bipolar I disorder, most recent episode depression - educated to take rx as prescribed Abilify 10 mg at bedtime continue rx and educated on complaince rx jaleel 05/19 [email or web address]-[email or web address]-bqkg/ Increase Lamotrigine 200 mg - patient reported [...] 0.8% this initial monotherapy and 0.13% as adjunctivetreatment.Oth er risk factor may include concomitant use of [...] dysmenorrhea, incoordination, anxiety,seizures, irritability, anorexia, xerostomia, and photosensitivity.Seriou s reactions include: Rash, severe; Stuart Noble syndrome; [...] FND 2. 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 Bipolar I disorder, most recent episode depression - educated to take rx as prescribed Abilify 10 mg at bedtime continue rx and educated on complaince rx jaleel 05/19 [email or web address]-eyzz/ Lamotrigine 200 mg - patient reported depression [...] 0.8% this initial monotherapy and 0.13% as adjunctivetreatment.Oth er risk factor may include concomitant use of [...] dysmenorrhea, incoordination, anxiety,seizures, irritability, anorexia, xerostomia, and photosensitivity.Seriou s reactions include: Rash, severe; Stuart Noble syndrome; [...] FND 2. Generalized anxiety disorder -continue medications veterans adviser PRESCRIBES Xanax - educated to take as [...] 5. Long-term drug therapy - 06/10/2024 Other [facility]p (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 (ICD-10 - Z79.899) Medication Refill: Care Instructions material was published, Medication Refill: Care Instructions material was published 1. Bipolar I disorder, most recent episode depression - educated to take rx as prescribed Abilify 10 mg at bedtime continue rx and educated on complaince rx jaleel 05/19 [email or web address]-[email or web address]-[email or web address]/ Lamotrigine 200 mg - patient reported depression [...] 0.8% this initial monotherapy and 0.13% as adjunctivetreatment.Oth er risk factor may include concomitant use of [...] dysmenorrhea, incoordination, anxiety,seizures, irritability, anorexia, xerostomia, and photosensitivity.Seriou s reactions include: Rash, severe; Stuart Noble syndrome; [...] FND 2. Generalized anxiety disorder -continue medications veterans adviser PRESCRIBES Xanax - educated to take as [...] disorder -therapy 5. 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 Bipolar I disorder, most recent episode depression - educated to take rx as prescribed Abilify 10 mg at bedtime started 05/22/22 jaleel 05/19 [email or web address]-fsy-[email or web address] [email or web address]-qdvg/ Lamotrigine 100 mg - patient requested leave from school for 10 days 08/13/23- 08/24/23 educated on Lamotrigine and watch for rash Lamotriginelamotrigine has a serious rashes requiring hospitalization and discontinue treatment includingSteven Noble syndrome rare case of toxic epidermal necrolysis and cache related deaths.Incidence with adjunct of epilepsy treatment 0.8% in 2 to 16 years old and 0.3% in adults, bipolarand other mood disorders incidence 0.8% this initial monotherapy and 0.13% as adjunctivetreatment.Oth er risk factor may include concomitant use of [...] dysmenorrhea, incoordination, anxiety,seizures, irritability, anorexia, xerostomia, and photosensitivity.Seriou s reactions include: Rash, severe; Stuart Noble syndrome; [...] need to see neurologist for her FND F31.31: Bipolar disorder, current episode depressed, mild 2. Generalized anxiety disorder -continue medications veterans adviser PRESCRIBES Xanax - educated to take as prescribed to help anxiety and panic hx Vistaril 10 mg- patient reported caused passive SI thoughts 08/21/23 reported no SI no plans or intent no passive thoughts schedule therapy patient reported see counselor at school helps educated on importance therapy and labs discuss and educated rx options for anxiety, panic and depression - schedule therapy Jose M Prozac 20 mg daily - monitor for jaleel and hypomania F41.1: Generalized anxiety disordereducated to take as prescribed refer to therapy fluoxetine 20 mg capsule - Take 1 capsule(s) every day by oral route in the morning 3. Insomnia disorder related to another mental disorder -stable F51.05: Insomnia due to other mental disorder 4. Chronic post-traumatic stress disorder -therapy F43.12: Post-traumatic stress disorder, chronic 5. Long-term drug therapy - 01/11/2024 Other [facility] (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 (ICD-10 - Z79.899) Medication Refill: Care Instructions material was published, Medication Refill: Care Instructions material was published 1. Bipolar I disorder, most recent episode depression - educated to take rx as prescribed Abilify 10 mg at bedtime started 05/22/22- reported been off rx 4-5 days continue rx jaleel 05/19 [email or web address]-[email or web address] [email or web address]-[email or web address]/ Lamotrigine 100 mg - patient reported depression mild and been off rx 4-5 days and would like to GDR - will decrease Lamotrgrine 50 mg daily educated on Lamotrigine and watch for rash Lamotriginelamotrigine has a serious rashes requiring hospitalization and discontinue treatment includingSteven Noble syndrome rare case of toxic epidermal necrolysis and cache related deaths.Incidence with adjunct of epilepsy treatment 0.8% in 2 to 16 years old and 0.3% in adults, bipolarand other mood disorders incidence 0.8% this initial monotherapy and 0.13% as adjunctivetreatment.Oth er risk factor may include concomitant use of [...] dysmenorrhea, incoordination, anxiety,seizures, irritability, anorexia, xerostomia, and photosensitivity.Seriou s reactions include: Rash, severe; Stuart Noble syndrome; [...] FND 2. Generalized anxiety disorder -continue medications veterans adviser PRESCRIBES Xanax - educated to take as prescribed to help anxiety and panic hx Vistaril 10 mg- not taking patient reported caused passive SI thoughts 08/21/23 reported no SI no plans or intent no passive thoughts schedule therapy patient reported see counselor at school helps educated on importance therapy and labs discuss and educated rx options for anxiety, panic and depression - schedule therapy Jose M Prozac 20 mg daily - monitor for jaleel and hypomania 3. Insomnia disorder related to another mental disorder -stable 4. Chronic post-traumatic stress disorder -therapy 5. Long-term drug therapy - 02/01/2024 Other usp (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 (ICD-10 - Z79.899) Medication Refill: Care Instructions material was published, Medication Refill: Care Instructions material was published 1. Bipolar I disorder, most recent episode depression - educated to take rx as prescribed Abilify 10 mg at bedtime started 05/22/22- continue rx and educated on complaince rx jaleel 05/19 [email or web address]-[email or web address] [email or web address]-lucepsued-pgxs/ Lamotrigine 100 mg - patient reported depression mild and been off rx 4-5 days and would like to GDR - will decrease Lamotrgrine 50 mg daily educated on Lamotrigine and watch for rash Lamotriginelamotrigine has a serious rashes requiring hospitalization and discontinue treatment includingSteven Noble syndrome rare case of toxic epidermal necrolysis and cache related deaths.Incidence with adjunct of epilepsy treatment 0.8% in 2 to 16 years old and 0.3% in adults, bipolarand other mood disorders incidence 0.8% this initial monotherapy and 0.13% as adjunctivetreatment.Oth er risk factor may include concomitant use of [...] dysmenorrhea, incoordination, anxiety,seizures, irritability, anorexia, xerostomia, and photosensitivity.Seriou s reactions include: Rash, severe; Stuart Noble syndrome; [...] FND 2. Generalized anxiety disorder -continue medications veterans adviser PRESCRIBES Xanax - educated to take as prescribed to help anxiety and panic hx Vistaril 10 mg- educated on rx Will Add Visatril 10 mg three times as needed for anxiety and panic patient reported caused passive SI thoughts 08/21/23 reported no SI no plans or intent no passive thoughts schedule therapy patient reported see counselor at school helps educated on importance therapy and labs discuss and educated rx options for anxiety, panic and depression - schedule therapy Kavitha- Prozac 20 mg daily - monitor for jaleel and hypomania 3. Insomnia disorder related to another mental disorder -stable 4. Chronic post-traumatic stress disorder -therapy 5. Long-term drug therapy - 10/15/2023 Other 1. Bipolar I disorder, most recent episode depression - educated to take rx as prescribed Abilify 10 mg at bedtime started 05/22/22mania 05/19Lamotrigine 100 mg - patient requested leave from school for 10 days 08/13/23- 08/24/23 educated on Lamotrigine and watch for rash Lamotriginelamotrig ine has a serious rashes requiring hospitalization and discontinue treatment includingSteven Noble syndrome rare case of toxic epidermal necrolysis and cache related deaths.Incidence with adjunct of epilepsy treatment 0.8% in 2 to 16 years old and 0.3% in adults, bipolarand other mood disorders incidence 0.8% this initial monotherapy and 0.13% as adjunctivetreatment .Other risk factor may include concomitant use of [...] dysmenorrhea, incoordination, anxiety,seizures, irritability, anorexia, xerostomia, and photosensitivity.Se rious reactions include: Rash, severe; Stuart Noble syndrome; toxic epidermal necrosis;injury edema, hypersensitivity reactions. Including fatal, multiple organ failure to safe fatal, rash witheosinophilia systemic symptoms, DIC, neutropenia, leukopenia, thrombocytopenia, pancytopenia,aplast ic anemia, hemolytic anemia, i pancreatitis, hepatic failure, [...] will need to see neurologist for her FNDF31.31: Bipolar disorder, current episode depressed, mild 2. 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 Insomnia disorder related to another mental disorder -stable F51.05: Insomnia due to other mental disorder 4. Chronic post-traumatic stress disorder -imwvyekO75.12: Post-traumatic stress disorder, chronic 5. Long-term drug therapy -, Aripiprazole Oral Tablet 10 mg (ARIPIPRAZOLE - ORAL) material was published, Lamotrigine Oral Tablet (LAMOTRIGINE - ORAL) material was published, Fluoxetine Oral Capsule (FLUOXETINE - ORAL) material was published 1. 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 Generalized anxiety disorder -continue medications veterans adviser PRESCRIBES Xanax - educated to take as prescribed to help anxiety and panic hx Vistaril 10 mg- patient reported caused passive SI thoughts 08/21/23 reported no SI no plans or intent no passive thoughts schedule therapy patient reported see counselor at school helps educated on importance therapy and labs discuss and educated rx options for anxiety, panic and depression - add Prozac 20 mg daily - monitor for jaleel and hypomania F41.1: Generalized anxiety disordereducated to take as prescribed refer to therapy fluoxetine 20 mg capsule - Take 1 capsule(s) every day by oral route in the morning 3. Insomnia disorder related to another mental disorder -stable F51.05: Insomnia due to other mental disorder 4. Chronic post-traumatic stress disorder -therapy F43.12: Post-traumatic stress disorder, chronic 5. Long-term drug therapy - 01/11/2024 Other Aripiprazole Or al Tablet 10 mg (ARIPIPRAZOLE - ORAL) material was published, Fluoxetine Oral Capsule (FLUOXETINE - ORAL) material was published 1. Bipolar I disorder, most recent episode depression - educated to take rx as prescribed Abilify 10 mg at bedtime started 05/22/22- reported been off rx 4-5 days continue rx jaleel 05/19 [email or web address]-[email or web address]-jtjgbmtgl-qxdf/ Lamotrigine 100 mg - patient reported depression mild and been off rx 4-5 days and would like to GDR - will decrease Lamotrgrine 50 mg daily educated on Lamotrigine and watch for rash Lamotriginelamotrigine has a serious rashes requiring hospitalization and discontinue treatment includingSteven Noble syndrome rare case of toxic epidermal necrolysis and cache related deaths.Incidence with adjunct of epilepsy treatment 0.8% in 2 to 16 years old and 0.3% in adults, bipolarand other mood disorders incidence 0.8% this initial monotherapy and 0.13% as adjunctivetreatment.Oth er risk factor may include concomitant use of [...] dysmenorrhea, incoordination, anxiety,seizures, irritability, anorexia, xerostomia, and photosensitivity.Seriou s reactions include: Rash, severe; Stuart Noble syndrome; [...] FND 2. Generalized anxiety disorder -continue medications veterans adviser PRESCRIBES Xanax - educated to take as prescribed to help anxiety and panic hx Vistaril 10 mg- not taking patient reported caused passive SI thoughts 08/21/23 reported no SI no plans or intent no passive thoughts schedule therapy patient reported see counselor at school helps educated on importance therapy and labs discuss and educated rx options for anxiety, panic and depression - schedule therapy Jose M Prozac 20 mg daily - monitor for jaleel and hypomania 3. Insomnia disorder related to another mental disorder -stable 4. Chronic post-traumatic stress disorder -therapy 5. Long-term drug therapy - Plan Of Treatment Next Appt Details Provider Name:Herlinda Flako , 06/24/2024 04:15:00 PM, [address] [facility] [address], [place], [address], Insurance Providers Payer Name Payer Address Payer Phone Subscriber Number Group Number Insured Name Patient Relationship to Insured Coverage Start Date Coverage End Date Petey HARRIS [id number] [place] [phone] [id number] TRAVIS MACHADO Child - Insured has Financial Responsibility Medical (General) History Medical History History ICD Code Problems: Attention deficit hyperactivit y disorder, combined type Bipolar I disorder, most recent episode depression Cannabis dependence, continuous Cannabis therapy Chronic post-traumatic stress disorder Easy bruising Generalized anxiety disorder History of SARS-CoV-2 Insomnia disorder related to another men damari disorder Long-term drug therapy Mild recurrent major depression Mixed bipolar I disorder Moderate bipolar disorder Self-injurious behavior Severe recurrent major depression Suicidal thoughts Unable to concentrate , Bipolar I disorder, most rec ent episode depression - Onset: 12/16/2022 Cannabis dependence, [...] 05/18/2020 Self-injurious behavior - Onset: 04/30/2020 Chronic post-traumatic stress disorder - Onset: 04/24/2020 Suicidal thoughts - Onset: 04/24/2020 Insomnia disorder related to another mental disorder - Onset: 04/24/2020 Generalized anxiety disorder - Onset: 04/24/2020 Severe recurrent major depression - Onset: 04/24/2020 Surgical History Surgery Date(Month/Year) wisdom teeth
--- OUTSIDE RECORDS SUMMARY | 2024-06-20 20:57 | XMS_ITS | Clinical Summary ---
Author Organization [facility] Address [facility] [address] [place] [address] Care Team Providers Care E Learning Specialist Name Role Phone Brent Rubio MD Primary [...] age to complete this topic Care Teams E Learning Specialist Relationship Specialty Start Date End Date Brent Rubio MD PCP - General 01/04/16
== END 2024-06-20 20:45 | disposition left against medical advice (07) ==
LOC: ANHED 20:55
DX: Z53.21 Procedure and treatment not carried out due to patient leaving prior to being seen by health care provider (principal)
CPT/HCPCS: 99199

== ENCOUNTER 2024-10-02 02:14 | Emergency (ER) | payer OTHER, SELFPAY ==
[2024-10-02] VITALS (7 sets, daily range): BP systolic 105–132; BP diastolic 60–80; PULSE 66–106; RESP 13–20; TEMP 36.8; O2SAT 95–100
--- OUTSIDE RECORDS SUMMARY | 2024-10-02 02:17 | XMS_ITS | Clinical Summary ---
Author Organization [facility] Address [address] [place] [id number] Phone Care Team Providers Care Combiner Operator Name Role Phone Jennifer Reyes Primary Care Provider [phone] Allergies Active Allergy Reactions Criticality Noted Date Comments Cefdinir Diarrhea,Hives Medium 02/27/2020 Prochlorperazine Hives Medium 06/27/2020 Reaction: HIVES, Tree Extract Anaphylaxis High 12/11/2021 Medications ALPRAZolam (XANAX) 0.5 MG tablet TAKE 1 BY MOUTH EVERY 12 HOURS NEEDED 2 Active buPROPion XL (WELLBUTRIN XL) 300 MG 24 hr tablet Take 300 mg by mouth 1 (one) time each day 2 Active cyclobenzaprine (FLEXERIL) 10 MG tablet TAKE 1 TABLET BY MOUTH THREE TIMES A DAY NEEDED FOR MUSCLE SPASM 2 Active escitalopram (LEXAPRO) 5 MG tablet TAKE 1 TABLET BY MOUTH EVERY DAY IN THE MORNING 2 Active FLUoxetine (PROzac) 20 MG capsule TAKE 1 CAPSULE BY MOUTH EVERY DAY IN THE MORNING (DISCONTINUE ESCITALOPRAM) 2 Active HYDROcodone-acet aminophen (NORCO) 5-325 MG per tablet Take 1 tablet by mouth every 6 (six) hours if needed for pain 2 Active lamoTRIgine (LaMICtal) 100 MG tablet Take 100 mg by mouth every night 2 Active albuterol HFA (PROVENTIL HFA) 108 (90 Base) MCG/ACT inhaler Inhale 2 puffs 1 Active butalbital-aceta minophen-caffein e (FIORICET) 50-325-40 MG per tablet TAKE 1 TABLET BY MOUTH EVERY 6 HOURS NEEDED FOR HEADACHES 2 Active Orilissa 200 MG tablet 2 Active ondansetron ODT (ZOFRAN-ODT) 4 MG dispersible tablet TAKE 1 TABLET BY MOUTH EVERY 8 HOURS NEEDED FOR NAUSEA AND VOMITING 2 Active Active Problems Problem Noted Date Diagnosed Date Dermatitis 06/12/2021 Overview (12/11/2021): Last Assessment & Plan: Will add steroid cream bid x 7 days. She was advised f/u in the next week if not improving, sooner if worsening. Endometriosis 06/12/2021 Overview (12/11/2021): Last Assessment & Plan: Continue with care per postal carrier Otalgia of right ear 06/12/2021 Overview (12/11/2021): [...] navicular bone 01/15/2016 Foot pain 01/15/2016 Immunizations Immunization Administration Dates Next Due Influenza, Injectable, Quadrivalent, [...] 0.6 oz pur e alcohol) occasional use Comments Unknown Sex and Gender Information Value Date Recorded Sex Assigned at Not on file Legal Sex Female 11:07 AM MDT Gender Identity Not on file Sexual Orientation [...] 9:12 AM CDT Height 162.6 cm (5' 4) 12/11/2021 9:12 AM CDT Body Mass Index 19.74 12/11/2021 9:12 AM CDT Plan of Treatment Health Maintenance Due Date Last Done Comments COVID-19 Vaccine ( season) 2023, 09/17/2020 Influenza Vaccine (Season Ended) 2024 05/25/19, 05/25/2018 Insurance [employer] [place]ICA[place] - [place] Care Teams Combiner Operator Relationship Specialty Start Date End Date Jennifer Reyes PA PCP - General Family Medicine 01/02/22
--- OUTSIDE RECORDS SUMMARY | 2024-10-02 02:18 | XMS_ITS | Continuity of Care Document ---
Author Organization [facility] Address [address] [place] [address] Phone Care Team Providers Care Administrative Nursing Supervisor Name Role Phone Conversion MD, Doctor Unavailable [...] Diagnoses Date Provider Providers Copied on Encounter [facility], [address], [place], [place], [id number], tel:[phone] Conversion Department No Information 1 Conversion Doctor. [address] [place] [address], [address], . [facility], [address], [place], [id number], tel:[phone] [place] [facility] No Information 8 Noble Gleason. [address] [place] [address], [id number], . tel:[phone] Family History Family Member Type Diagnosis Age At Onset No Information Payers Payer name Insurance type Covered democrat ID Authoriza tion(s) No Information Social History [...]
--- OUTSIDE RECORDS SUMMARY | 2024-10-02 02:18 | XMS_ITS | Clinical Summary ---
Author Organization [facility] Address [address] [place] [address] Care Team Providers Care Landscape Architecture Professor Name Role Phone Jennifer Reyes Primary Care Provider [phone]- [phone] Allergies Active Allergy Reactions Criticality Noted Date [...] 06/12/2021 Assessment & Plan (06/12/2021 10:35 AM PAPER CORE MACHINE OPERATOR): Advised no drops in ear Advised wearing cotton in ear when showering for the next week Advised adding 500mg tylenol q6h prn pain to current ibuprofen regimen x 3d Advised f/u if not improving or if worsening over the next week Otalgia, right 06/12/2021 Assessment & Plan (06/12/2021 10:35 AM PAPER CORE MACHINE OPERATOR): Advised no drops in ear Advised wearing cotton in ear when showering for the next week Advised adding 500mg tylenol q6h prn pain to current ibuprofen regimen x 3d Advised f/u if not improving or if worsening over the next week Dermatitis 06/12/2021 Assessment & Plan (06/12/2021 10:36 AM PAPER CORE MACHINE OPERATOR): Will add steroid cream bid x 7 days. She was advised f/u in the next week if not improving, sooner if worsening. Tobacco use 06/12/2021 Assessment & Plan (06/12/2021 10:35 AM PAPER CORE MACHINE OPERATOR): Encouraged continued attempts at smoking cessation, discussed that the wellbutrin may benefit these attempts Moderate episode of recurrent major depressive d isorder 06/12/2021 Assessment & Plan (06/12/2021 10:36 AM PAPER CORE MACHINE OPERATOR): Continue with care per psychiatry Endometriosis 06/12/2021 Assessment & Plan (06/12/2021 10:36 AM PAPER CORE MACHINE OPERATOR): Continue with care per durable medical equipment repairer Psychogenic nonepileptic seizure 08/09/2020 Migraine without aura and wi thout status migrainosus, not intractable 04/23/2020 Episodes of decreased attentiveness 04/23/2020 Assessment & Plan (06/12/2021 10:36 AM PAPER CORE MACHINE OPERATOR): Continue with care per psychiatry Mild intermittent asthma 05/24/2018 Assessment & Plan (05/24/2018 4:45 AM PAPER CORE MACHINE OPERATOR): Present on admission, currently asymptomatic. -Albuterol PRN Multiple food allergies 05/24/2018 Assessment & Plan (05/24/2018 4:47 AM PAPER CORE MACHINE OPERATOR): Present on admission, currently asymptomatic. -Epinephrine 0.3mg IM PRN anaphylaxis Cervical pain (neck) 12/02/2016 Assessment & Plan (05/24/2018 4:47 AM PAPER CORE MACHINE OPERATOR): Present on admission. Given description [...] Date Encounter to establish care 06/12/2021 08/21/2021 Encounters Date Type Department Care Team Description 07/07/2024 Telephone [facility] Minimally Invasive Surgery [address] [facility] 7th [address] [place] [address] Yessi Mukherjee, A New Referral from Last 3 Months Immunizations Immunization Administration Dates Next Due Influenza, [...] on file Legal Sex Female 11:46 PM PAPER CORE MACHINE OPERATOR Gender Identity Not on file [...] CDT Oxygen Saturation 99% 06/02/2022 10:15 AM PAPER CORE MACHINE OPERATOR Inhaled Oxygen Concentration - - Weight 52.7 kg (116 lb 3.2 oz) 01/27/2023 2:59 P M CDT Height 162.6 cm (5' 4) 01/27/2023 2:59 PM CDT Body Mass Index [...] 2018 Depression Screening 06/12/2022 06/12/2021 Covid-19 Vaccine (3 - season) 2023, 09/17/2020 Influenza Vaccine (Season Ended) 2024 05/25/19, 05/25/2018 [facility] [employer] [facility] A[facility]NA [facility] IDPA [facility] OPEN ACCESS IDPA [facility] Advance Directives For more information, please contact: [phone] Documents on File Type Date Recorded Patient Piecer Up Expl anation ADVANCE DIRECTIVE 05/24/2018 12:50 AM * Full Code (Latest Code Status on File) Date Activated Date Inactivated Comments 06/27/2020 8:51 AM 06/30/2020 8:59 PM * Full Code Date Activated Date Inactivated Comments 05/24/2018 2:35 AM 05/25/2018 6:00 PM Care Teams Landscape Architecture Professor Relationship Specialty Start Date End Date Jennifer Reyes PA PCP - General Office Rental Clerk 06/12/21
--- OUTSIDE RECORDS SUMMARY | 2024-10-02 02:18 | XMS_ITS | Referral Summary ---
Author Organization [facility] Address [address] [place] [address] Care Team Providers Care Well Servicing Rig Operator Name Role Phone Jennifer Reyes Primary Care Provider [phone] Encounters Date Type Department Care Team Description [facility]/07[facility] [address] [facility] 7th [address] [place] [address] Yessi Mukherjee, [facility] New Referral from Last 3 Months Allergies Active Allergy Reactions Criticality Noted Date [...] 06/12/2021 Assessment & Plan (06/12/2021 10:35 AM INCOME TAX ANALYST): Advised no drops in ear Advised wearing cotton in ear when showering for the next week Advised adding 500mg tylenol q6h prn pain to current ibuprofen regimen x 3d Advised f/u if not improving or if worsening over the next week Otalgia, right 06/12/2021 Assessment & Plan (06/12/2021 10:35 AM INCOME TAX ANALYST): Advised no drops in ear Advised wearing cotton in ear when showering for the next week Advised adding 500mg tylenol q6h prn pain to current ibuprofen regimen x 3d Advised f/u if not improving or if worsening over the next week Dermatitis 06/12/2021 Assessment & Plan (06/12/2021 10:36 AM INCOME TAX ANALYST): Will add steroid cream bid x 7 days. She was advised f/u in the next week if not improving, sooner if worsening. Tobacco use 06/12/2021 Assessment & Plan (06/12/2021 10:35 AM INCOME TAX ANALYST): Encouraged continued attempts at smoking cessation, discussed that the wellbutrin may benefit these attempts Moderate episode of recurrent major depressive d isorder 06/12/2021 Assessment & Plan (06/12/2021 10:36 AM INCOME TAX ANALYST): Continue with care per psychiatry Endometriosis 06/12/2021 Assessment & Plan (06/12/2021 10:36 AM INCOME TAX ANALYST): Continue with care per drawer hardware worker Psychogenic nonepileptic seizure 08/09/2020 Migraine without aura and wi thout status migrainosus, not intractable 04/23/2020 Episodes of decreased attentiveness 04/23/2020 Assessment & Plan (06/12/2021 10:36 AM INCOME TAX ANALYST): Continue with care per psychiatry Mild intermittent asthma 05/24/2018 Assessment & Plan (05/24/2018 4:45 AM INCOME TAX ANALYST): Present on admission, currently asymptomatic. -Albuterol PRN Multiple food allergies 05/24/2018 Assessment & Plan (05/24/2018 4:47 AM INCOME TAX ANALYST): Present on admission, currently asymptomatic. -Epinephrine 0.3mg IM PRN anaphylaxis Cervical pain (neck) 12/02/2016 Assessment & Plan (05/24/2018 4:47 AM INCOME TAX ANALYST): Present on admission. Given description as unilateral [...] on file Legal Sex Female 11:46 PM INCOME TAX ANALYST Gender Identity Not on file Sexual Orientation [...] CDT Oxygen Saturation 99% 06/02/2022 10:15 AM INCOME TAX ANALYST Inhaled Oxygen Concentration - - Weight 52.7 kg (116 lb 3.2 oz) 01/27/2023 2:59 P M CDT Height 162.6 cm (5' 4) 01/27/2023 2:59 PM CDT Body Mass Index 19.95 01/27/2023 2:59 PM CDT Plan of Treatment Not on file Insurance [employer] OPEN ACCESS [employer] OPEN ACCESS AETNA [facility] IDPA [facility] OPEN ACCESS IDPA [facility] PLAN [facility] Advance Directives For more information, please contact: [phone] Documents on File Type Date Recorded Patient Paraprofessional Education Assistant Expl anation ADVANCE DIRECTIVE 05/24/2018 12:50 AM * Full Code (Latest Code Status on File) Date Activated Date Inactivated Comments 06/27/2020 8:51 AM 06/30/2020 8:59 PM * Full Code Date Activated Date Inactivated Comments 05/24/2018 2:35 AM 05/25/2018 6:00 PM Care Teams Well Servicing Rig Operator Relationship Specialty Start Date End Date Jennifer Reyes PA PCP - General Vegetable Packer 06/12/21
--- OUTSIDE RECORDS SUMMARY | 2024-10-02 02:18 | XMS_ITS | Clinical Summary ---
Author Organization [facility] [employer] Address [address] [place] [address] Care Team Providers Care Heading Pinner Name Role Phone Denise Dyson MANAGER PSYCHOLOGY-BLOCK PRESS OPERATOR Primary Care Provider + Source Comments [facility],non-owned Affiliates and Associated Physician Practices is amultiple site organization consisting of ambulatory clinics and hospital sitesin [place], [place], [place] and [place]. This disclosure is being madepursuant to the Care Everywhere program and may not contain all information available regarding this patient. Last updated 18.[facility] [employer] Allergies Active Allergy Reactions Criticality Noted Date Comments Adhesive Sensitivity Rash Medium 01/27/2024 [place] Oil Anaphylaxis High 02/09/2022 Cefdinir Diarrhea,Other,Urtic ar ia,Rash,Unknown High 02/27/2020 Escitalopram Other,Urticaria,Unkn ow n High 02/09/2022 Morphine Other,Psychiatric Medium 01/27/2023 Combative Prochlorperazine Other,Urticaria Medium 06/27/2020 Reaction: HIVES, Reaction: HIVES, Reaction: HIVES, Reaction: HIVES, Reaction: HIVES, Reaction: HIVES, Skin Adhesives Rash Medium 01/27/2024 Tree Extract Anaphylaxis High 12/11/2021 Tree Nuts Anaphylaxis High 05/23/2018 Medications * This document contains information received from the source organization and may not represent a complete record from that organization. * Be aware that medications may not be up to date on this document. Alwaysverify current medications with the patient. ARIPiprazole (Abilify) 10 MG tablet 3 Active lamoTRIgine (LaMICtal) 100 MG tablet 3 Active DULoxetine (Cymbalta) 30 MG capsule Take 1 (one) capsule by mouth once daily 5 Active etonogestrel (Nexplanon) 68 MG implant 68 (sixty eight) mg by Subdermal route as directed Active EPINEPHrine (Epipen) 0.3 MG/0.3ML auto-injector penIndications:T ree nut allergy Inject 0.3 mL into muscle once as needed for Anaphylaxis 0.6 mL 5 Active beclomethasone HFA (Qvar RediHaler) 40 MCG/ACT inhalerIndicatio ns:Moderate persistent reactive airway disease without complication (HCC) Inhale 1 (one) puff by mouth 2 times daily 31.8 g 1 5 Active Active Problems Problem Noted Date Diagnosed Date ADHD (attention deficit hype ractivity disorder), combined type 09/01/2024 PTSD (post-traumatic stress disorder) 09/01/2024 Bipolar affective disorder 12/24/2023 group home current [...] Assessment & Plan: Continue with care per emergency department clinician Last Assessment & Plan: Continue with care per emergency department clinician Dermatitis 06/12/2021 02/03/2023 Overview (02/03/2023): Last Assessment [...] week Pain of foot 01/15/2016 02/03/2023 12/24/2023 Encounters * This document contains information received from the source organization and may not represent a complete record from that organization. Date Type Department Care Team Description 09/01/2024 12:20 PM CDT Office Visit [facility] - Family Medicine [address] [facility], [address] [address] Denise Dyson, MANAGER PSYCHOLOGY-[facility] Encounter for medical examination to establish care (Primary Dx); MITZI (generalized anxiety disorder); Moderate episode of recurrent major depressive disorder (HCC); PTSD (post-traumatic stress disorder); Bipolar 1 disorder (HCC); Insomnia related to another mental disorder; Moderate persistent reactive airway disease without complication (HCC); Chronic rhinitis; Tree nut allergy; Lipid screening; Encounter for vitamin deficiency screening; Thyroid disorder screen; Screening for deficiency anemia; Diabetes mellitus screening; Screen for STD (sexually transmitted disease); Encounter for screening for metabolic disorder 09/01/2024 Travel from Last 3 Months Immunizations Immunization Administration Dates Next Due INFLUENZA A [id number] VACCINE 05/25/2020 INFLUENZA VACCINE, QUADR. (F LUZONE; FLULAVAL; FLUARIX; AFLURIA QUADRIVALENT; 6MO+), 0.5 ML (IIV4) 05/25/2020,05/25/2018 Family History Medical History Relation Name Comments Other Brother NEPHROTIC SYNDR OME None Known Father None Known Maternal Aunt None Known Maternal Grandfather None Known Maternal Grandmother None Known Maternal Uncle Lymphoma Mother None Known Other None Known Paternal Aunt None Known Paternal Grandfather None Known Paternal Grandmother None Known Paternal Uncle Relation Name Status Comments Brother Alive Father Alive Maternal Aunt Maternal Grandfather Maternal Grandmother Maternal Uncle Mother Alive Other Paternal Aunt Paternal Grandfather Paternal Grandmother Paternal Uncle Sister Alive Social History Tobacco Use Types Packs/Day Years Used Date Smoking Tobacco: Never Smokeless Tobacco: Never Tobacco Cessation:Counseling Given: No Alcohol Use Standard Drinks/Week Comments Not Currently 0 (1 standard drink = 0.6 oz pur e alcohol) PHQ-2 Answer Date Recorded Patient Health Questionnaire-2 Score 4 09/01/2024 Comments No Sex and Gender Information Value Date Recorded Sex Assigned at Not on file Legal Sex Female 5:40 AM AIRCRAFT SKIN BURNISHER Gender Identity Not on file Sexual Orientation Not on file Last Filed Vital Signs Vital Sign Reading Time Taken Comments Blood Pressure 108/56 09/01/2024 12:34 PM CDT Pulse 96 09/01/2024 12:34 PM CDT Temperature 37 C (98.6 F) 09/01/2024 12:34 PM CDT Respiratory Rate 16 09/01/2024 12:34 PM CDT Oxygen Saturation 99% 09/01/2024 12:43 PM CDT Inhaled Oxygen Concentration - - Weight 58.3 kg (128 lb 9.6 oz) 09/01/2024 12:34 PM CDT Height 162.6 cm (5' 4) 09/01/2024 12:34 PM CDT Body Mass Index 22.07 09/01/2024 12:34 PM CDT Plan of Treatment Health Maintenance Due Date Last Done Comments HPV VACCINE (1 - 3-dose series) 2014 DTAP/TDAP/TD VACCINES (1 - Tdap) 2018 HEPATITIS B VACCINE (1 of 3 - 19+ 3-dose series) 2018 PNEUMOCOCCAL VACCINE (1 of 2 - PCV) 2018 COVID-19 VACCINE (3 - 2023-2 5 season) 2023 10/08/2020, 09/17/2020 INFLUENZA VACCINE (Season Ended) 2024 05/25/2020, 05/25/2020, 05/25/2018 PAP SMEAR 12/26/2024 12/26/2021 CHLAMYDIA/GONORRHEA SCREENING 09/02/2025 09/02/2024 ZOSTER VACCINE (1 of 2) 2049 HEPATITIS C SCREENING Completed 09/02/2024 HIV SCREENING Completed 09/02/2024 HIB VACCINE Aged Out No longer eligi ble based on patient's age to complete this topic MENINGOCOCCAL (Group B) VACCINE SHARED DECISION-MAKING Aged Out No longer eligible based on patient's age to complete this topic MENINGOCOCCAL GROUPS A/C/Y/W VACCINE Aged Out No longer eligible b ased on patient's age to complete this topic Procedures Procedure Name Priority Date/Time Associated Diagnosis Comments CHLAMYDIA + GC AMPLIFIED PROBE Routine 09/02/2024 2:48 PM CDT Screen for STD (sexually transmitted disease) HIV-1 HIV-2 ANTIBODY + HIV P24 AG PANEL Routine 09/02/2024 2:47 PM CDT Screen for STD (sexually transmitted disease) HEPATITIS C ANTIBODY Routine 09/02/2024 2:47 PM CDT Screen for STD (sexually transmitted disease) VITAMIN D 25-HYDROXY Routine 09/02/2024 2:47 PM CDT Encounter for vitamin deficiency screening TSH HI LOW REFLEX FREE T4 Routine 09/02/2024 2:47 PM CDT Thyroid disorder screen COMPREHENSIVE METABOLIC PANEL Routine 09/02/2024 2:47 PM CDT Diabetes mellitus screening CBC W AUTO DIFFERENTIAL Routine 09/02/2024 2:47 PM CDT Screening for deficiency anemia VITAMIN B12 Routine 09/02/2024 2:46 PM CDT Encounter for vitamin deficiency screening from Last 3 Months Results * CHLAMYDIA + GC AMPLIFIED PROBE (09/02/2024 2:48 PM CDT) Chlamydia GIOVANI Urine Negative Negative [facility] INSURANCE BILL GC GIOVANI Urine Negative Negative [facility] INSURANCE BILL Microbiology URINE / Unknown 09/02/2024 2 :48 PM CDT 09/02/2024 Comment: Narrative [facility] INSURANCE BILL - 09/05/2024 11:07 PM CDT Performed at: [address] [place] [id number] Bulk Sealer: Eloise Milian MD, Phone: [phone] Denise Dyson MANAGER PSYCHOLOGY-[facility] LAB - MICROBIOLOGY ORDER TU Final Result Performing Organization Address [facility] Co de Phone Number [facility] INSURANCE BILL [address] [place] [address] * HIV-1 HIV-2 ANTIBODY + HIV P24 AG PANEL (09/02/2024 2:47 PM CDT) Pathologist [facility] HIV Screen 4th Generation w Reflex Non Reactive Non Reactive [facility] INSURANCE BILL Comment: HIV-1/HIV-2 antibodies and HIV-1 p24 antigen were NOT detected. There is no laboratory evidence of HIV infection. HIV Negative Blood BLOOD SPECIMEN / Unknown 09/02/2024 2:47 PM CDT 09/02/2024 Narrative [facility] INSURANCE BILL - 09/03/2024 8:11 AM CDT Performed at: [address] [id number] Bulk Sealer: Kevin Dan PhD, Phone: [phone] Denise Dyson APRN-BLOCK PRESS OPERATOR LAB - CHEMISTRY ORDERABL ES Final Result Performing Organization Address [facility] Co de Phone Number [facility] INSURANCE BILL [address] [place] [address] * TSH HI LOW REFLEX FREE T4 (09/02/2024 2:47 PM CDT) Pathologist [facility] TSH 1.850 0.450 - 4.500 uIU/mL [facility] INSURANCE BILL Blood BLOOD SPECIMEN / Unknown 09/02/2024 2:47 PM CDT 09/02/2024 Narrative [facility] INSURANCE BILL - 09/03/2024 8:11 AM CDT Performed at: - [facility] [address] [id number] Bulk Sealer: Kevin Dan PhD, Phone: [phone] Denise Dyson APRN-[facility] LAB - CHEMISTRY ORDERABL ES Final Result Performing Organization Address [facility] Co de Phone Number [facility] INSURANCE BILL [address] [place] [address] * (ABNORMAL) VITAMIN D 25-HYDROXY (09/02/2024 2:47 PM CDT) [facility] Vitamin D, 25 Hydroxy 25.1(L) 30.0 - 100.0 ng/mL [facility] INSURANCE BILL Comment: Vitamin D deficiency has been defined by the [place] of Medicine and an Endocrine Society practice guideline as a level of serum 25-OH vitamin D less than 20 ng/mL (1,2). The Endocrine Society went on to further define vitamin D insufficiency as a level between 21 and 29 ng/mL (2). 1. IOM ([place] of Medicine). 2010. Dietary reference intakes for calcium and D. [place]: The National Academies Press. 2. Clovis MF, Ruddy NC, Elio CHOW, et al. Evaluation, treatment, and prevention of vitamin D deficiency: an Endocrine Society clinical practice guideline. JCEM. 2010; 96(7):1911-30. Blood BLOOD SPECIMEN / Unknown 09/02/2024 2:47 PM CDT 09/02/2024 Narrative [facility] INSURANCE BILL - 09/03/2024 7:09 AM CDT Performed at: - [facility] [address] [id number] Bulk Sealer: Kevin Dan PhD, Phone: [phone] Denise Dyson MANAGER PSYCHOLOGY-BLOCK PRESS OPERATOR LAB - CHEMISTRY ORDERABL ES Final Result Performing Organization Address [facility]/ZIP Co de Phone Number [facility] INSURANCE BILL [address] [place] [address] * CBC WITH DIFFERENTIAL (09/02/2024 2:47 PM CDT) WBC 5.8 3.4 - 10.8 x10E3/uL [facility] INSURANCE BILL RBC 4.72 3.77 - 5.28 x10E6/uL [facility] INSURANCE BILL Hemoglobin 13.7 11.1 - 15.9 g/dL [facility] INSURANCE BILL Hematocrit 42.5 34.0 - 46.6 % [facility] INSURANCE BILL MCV 90 79 - 97 fL [facility] INSURANCE BILL MCH 29.0 26.6 - 33.0 pg [facility] INSURANCE BILL MCHC 32.2 31.5 - 35.7 g/dL [facility] INSURANCE BILL RDW 12.6 11.7 - 15.4 % [facility] INSURANCE BILL Platelet Count 224 150 - 450 x10E3/uL [facility] INSURANCE BILL Granulocytes % 65 Not Estab. % [facility] INSURANCE BILL Lymphocytes % 18 Not Estab. % [facility] INSURANCE BILL Monocytes % 11 Not Estab. % [facility] INSURANCE BILL Eosinophils % 4 Not Estab. % [facility] INSURANCE BILL Basophils % 1 Not Estab. % [facility] INSURANCE BILL Granulocytes Absolute 3.8 1.4 - 7.0 x10E3/uL [facility] INSURANCE BILL Lymphocytes Absolute 1.0 0.7 - 3.1 x10E3/uL [facility] INSURANCE BILL Monocytes Absolute 0.7 0.1 - 0.9 x10E3/uL [facility] INSURANCE BILL Eosinophils Absolute 0.2 0.0 - 0.4 x10E3/uL [facility] INSURANCE BILL Basophils Absolute 0.1 0.0 - 0.2 x10E3/uL [facility] INSURANCE BILL Immature Granulocytes 1 Not Estab. % [facility] INSURANCE BILL Immature Granulocytes Absolute 0.0 0.0 - 0.1 x10E3/uL [facility] INSURANCE BILL Blood BLOOD SPECIMEN / Unknown 09/02/2024 2:47 PM CDT 09/02/2024 Narrative [facility] INSURANCE BILL - 09/03/2024 7:09 AM CDT Performed at: 01 - [address] [id number] Bulk Sealer: Kevin Dan PhD, Phone: [phone] us Denise Dyson MANAGER PSYCHOLOGY-BLOCK PRESS OPERATOR LAB - HEMATOLOGY ORDERAB LES Final Result [facility] INSURANCE BILL [address] [place] [address] * (ABNORMAL) COMPREHENSIVE METABOLIC PANEL (09/02/2024 2:47 PM CDT) Glucose 83 70 - 99 mg/dL [facility] INSURANCE BILL BUN 6 6 - 20 mg/dL [facility] INSURANCE BILL Creatinine 0.75 0.57 - 1.00 mg/dL [facility] INSURANCE BILL eGFR by CKD-EPI 113 >59 mL/min/1.7 3 [facility] INSURANCE BILL BUN/Creatinine Ratio 8(L) 9 - 23 [facility] INSURANCE BILL Sodium 141 134 - 144 mmol/L [facility] INSURANCE BILL Potassium 3.9 3.5 - 5.2 mmol/L [facility] INSURANCE BILL Chloride 102 96 - 106 mmol/L [facility] INSURANCE BILL CO2 23 20 - 29 mmol/L [facility] INSURANCE BILL Calcium 9.4 8.7 - 10.2 mg/dL [facility] INSURANCE BILL Protein Total 7.4 6.0 - 8.5 g/dL [facility] INSURANCE BILL Albumin 5.0 4.0 - 5.0 g/dL [facility] INSURANCE BILL Globulin Total 2.4 1.5 - 4.5 g/dL [facility] INSURANCE BILL Bilirubin Total 0.5 0.0 - 1.2 mg/dL [facility] INSURANCE BILL Alkaline Phosphatase 65 44 - 121 IU/L [facility] INSURANCE BILL AST 18 0 - 40 IU/L [facility] INSURANCE BILL ALT 14 0 - 32 IU/L [facility] INSURANCE BILL Blood BLOOD SPECIMEN / Unknown 09/02/2024 2:47 PM CDT 09/02/2024 Narrative [facility] INSURANCE BILL - 09/03/2024 8:11 AM CDT Performed at: 01 - [facility] [address] [place], [place] [id number] Bulk Sealer: Kevin Dan PhD, Phone: [phone] us Denise Dyson MANAGER PSYCHOLOGY-BLOCK PRESS OPERATOR LAB - CHEMISTRY ORDERABL ES Final Result [facility] INSURANCE BILL [address] [place] [address] * HEPATITIS C ANTIBODY (09/02/2024 2:47 PM CDT) Hepatitis C Antibody Non Reactive Non Reactive [facility] INSURANCE BILL Comment: HCV antibody alone does not differentiate between previously resolved infection and active infection. Equivocal and Reactive HCV antibody results should be followed up with an HCV RNA test to support the diagnosis of active HCV infection. Blood BLOOD SPECIMEN / Unknown 09/02/2024 2:47 PM CDT 09/02/2024 Narrative [facility] INSURANCE BILL - 09/03/2024 7:09 AM CDT Performed at: - [address] [id number] Bulk Sealer: Kevin Dan PhD, Phone: [phone] Denise Dyson MANAGER PSYCHOLOGY-BLOCK PRESS OPERATOR LAB - CHEMISTRY ORDERABL ES Final Result Performing Organization Address [facility]/ZIP Co de Phone Number [facility] [address] [place] [address] * VITAMIN B12 (09/02/2024 2:46 PM CDT) Vitamin B12 485 232 - 1,245 pg/mL [facility] INSURANCE BILL Blood BLOOD SPECIMEN / Unknown 09/02/2024 2:46 PM CDT 09/02/2024 Narrative [facility] INSURANCE BILL - 09/03/2024 8:11 AM CDT Performed at: [address] [id number] Bulk Sealer: Kevin Dan PhD, Phone: [phone] Denise Dyson MANAGER PSYCHOLOGY-BLOCK PRESS OPERATOR LAB - CHEMISTRY ORDERABL ES Final Result Performing Organization Address City/[facility]/ZIP Co de Phone Number [facility] [address] [place] [address] from Last 3 Months Insurance [employer] Care Teams Heading Pinner Relationship Specialty Start Date End Date Denise Dyson, MANAGER PSYCHOLOGY-BLOCK PRESS OPERATOR [address] [place] [address] PCP - General Nurse Practitioner 03/25/23
--- OUTSIDE RECORDS SUMMARY | 2024-10-02 02:18 | XMS_ITS | Clinical Summary ---
Author Organization [facility] Address [address] [place] [address] Care Team Providers Care Home Economics Teacher Name Role Phone Unavailable Primary Care Provider Unavailabl e Social History Tobacco Use Types Packs/Day Years Used Date Smoking Tobacco: Never Assessed Comments Unknown Sex and Gender Information Value Date Recorded Sex Assigned at Not on file Legal Sex Female 1:46 PM FIRE TENDER Gender Identity Not on file Sexual Orientation [...]
--- OUTSIDE RECORDS SUMMARY | 2024-10-02 02:18 | XMS_ITS | Clinical Summary ---
Author Organization [facility] Address [address] [place] [address] Phone Care Team Providers Care Structural Steel Fitter Name Role Phone Unavailable Primary Care Provider [...] Encounters Date Type Department Care Team Description 09/20/2024 External Device Data STL ABSTRACTION Provider, Abstract 09/16/2024 External Device Data ST[facility] ABSTRACTION Provider, Abstract 09/14/2024 External Device Data ST[facility] ABSTRACTION Provider, Abstract 09/14/2024 External Device Data STL ABSTRACTION Provider, Abstract 08/09/2024 External Device Data STL ABSTRACTION Provider, Abstract 07/13/2024 External Device Data STL ABSTRACTION Provider, Abstract 07/13/2024 External Device Data STL ABSTRACTION Provider, Abstract 07/02/2024 External Device Data STL ABSTRACTION Provider, Abstract 07/02/2024 External Device Data STL ABSTRACTION Provider, Abstract [...] No 02/04/2024 Food Insecurity Answer Date Recorded Patient needs follow up regardin 09/04/2024 Transportation Needs Answer Date Record ed Patient needs follow up regardin 09/04/2024 Housing Stability Answer Date Recorded Social/Environmental Concerns No concerns Utility Needs Answer Date Recorded Patient needs follow up regardin 09/04/2024 Comments No Sex and Gender Information Value [...] A M CDT Height 162.6 cm (5' 4) 02/18/2024 2:36 PM CDT Body Mass Index 21.22 02/04/2024 9:07 AM CDT Plan of Treatment Health Maintenance Due Date Last Done Comments HPV VACCINES (1 - 3-dose series) 2014 DTAP/TDAP/TD VACCINES (1 - Tdap) 2018 HEPATITIS B VACCINES (1 of 3 - 19+ 3-dose series) 2018 CERVICAL CANCER SCREENING 2020 HPV/Cotest (21-29) 2020 PAP SMEAR 2020 INFLUENZA VACCINE (#1) 2023 05/25/2020, 2018 COVID-19 Vaccine ( season) 2023, 09/17/2020 Medical Devices Implanted Type Area Biology Professor Device Identifier Shelf Expiration Date Model / Serial / Lot Barrier Interceed Adh 3x4in 4350 - [id number] Implanted:Qt y: 1 on 02/04/2024 by Rahul Kilgore MD at [facility] Adhesion Barrier N/A: [employer] [id number] 04/26/2028 4350 / / [id number] Barrier Interceed Adh 3x4in 4350 - [id number] Implanted:Qt y: 1 on 02/04/2024 by Rahul Kilgore MD at [facility] Adhesion Barrier N/A: [employer] [id number] 04/26/2028 [id number] / / [id number] Insurance CIG OPEN ACCESS HMO RX [employer] Express Advance Directives For more information, please contact: [phone] * Full Code (Latest Code Status on File) Date Activated Date Inactivated Comments 02/04/2024 11:42 AM 02/04/2024 4:01 PM * Full Code Date Activated Date Inactivated Comments 02/04/2024 9:22 AM 02/04/2024 11:42 AM
--- OUTSIDE RECORDS SUMMARY | 2024-10-02 02:18 | XMS_ITS | Continuity of Care Document ---
Author Organization [facility] Address [address] [facility] [address] [place] [address] Phone Care Team Providers Care Home Health Care Case Manager Name Role Phone Joan CHOI, Pineda [...] Encounter [facility], [address] [place] [address], [address] [place] [address], tel:[phone] [facility] No Information 1 Joan Sung. [address] [place] [address], [address] [place] [address] , . tel:[phone] Referring Provider: Scarlet Li, [address] [place] [address], [place], [place], [address] [place] [address] . tel:[phone] [facility], [address] [place] [address], [id number], tel:[phone] [facility] No Information 1 Yazan Novak. [address] [place] [address], [address], [address] [place] [address] , . tel:[phone] Referring Provider: Scarlet Li, [address] [place] [address], [place], [place], [address] [place] [address] . tel:[phone] [facility], [address] [place] [address], [id number], tel:[phone] [facility] No Information 1 Joan Sung. [address] [place] [address], [address], [id number] , . tel:[phone] Referring Provider: Scarlet Li, [address] [place] [address], [place], [place], [address] [place] [address] . tel:[phone] [facility], [address] [place] [address], [id number], tel:[phone] [facility] No Information 1 Steffi [facility] Gurvinder. [address] [facility], [place], [place], [facility], [place]. tel:[phone] Referring Provider: Scarlet Li, [address] [place] [address], [place], [address] . tel:[phone] PREVENTIVE COUNSELING, INDIV [facility], [address] [place] [address], [place], [place], [id number], tel:[phone] [facility] allergy symptoms (chief complaint) Oth adverse food reactions, not elsewhere classified, initAllergy to nuts other than peanutsAsthmaOthe r allergic rhinitis 1 Steffi [facility] Gurvinder. [address] [facility], [place], [place], [facility], [place]. tel:[phone] Referring Provider: Scarlet Li, [address] [place] [address], [place], [address] . tel:[phone] Family History Family Member Type Diagnosis Age At Onset No Information Payers Payer name Insurance type Covered constitution party ID Kalen flowers(s) Petey [id number] Social History Type Description Quantity Date Captured Comments Sex Female Smoking Status No Information Chief Complaint And Reason For Visit No Information Reason For Referral Reason For Referral No Information Plan Of Treatment Date Type Action Status Future Order: Lab Order ALMOND I gE ([id number]) ([id number]), Ordered on: Ordered Future Order: Lab Order Breckenridge N ut IgE W/Component Reflex ([id number]), Ordered on: Ordered Future Order: Lab Order Cashew N ut IgE W/Component Reflex ([id number]), Ordered on: Ordered Future Order: Lab Order Hazelnut IgE W/Component Reflex ([id number]), Ordered on: Ordered Future Order: Lab Order IgE, TOT AL ([id number]), Ordered on: Ordered Future Order: Lab Order Macadami a IgE ([id number]) ([id number]), Ordered on: Ordered Future Order: Lab Order PECAN NU T IgE (F201) ([id number]), Ordered on: Ordered Future Order: Lab Order PISTACHI O NUT IgE ([id number]) ([id number]), Ordered on: Ordered History Of Present Illness [...] throat feeling. Reports being highly allergic to Breckenridge Nuts. Eats peanut butter routinely.She reports her [...] for this semester. 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
--- NOTE | 2024-10-02 02:35 | ED.ALLEREA ---
HPI - Allergic Reaction General Chief complaint: Allergic Reaction Stated complaint: allergic rx, not used epi pen Time Seen by Provider: 10/02/24 02:25 History of Present Illness HPI narrative: 24-year-old female with a history of anaphylaxis to [place] and tree nuts presenting to the emergency department after having a pizza earlier today with tree nuts. Ingested approximately 1 slice about 30 minutes prior to arrival. She had immediate sensation of some numbness and tingling in her tongue lips and throat and feeling like her throat was closing. She vomited once and was feeling like she was having diarrhea. Did not use her epinephrine pending came to the hospital. 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 No history of any recent exposures, allergens or medical problems. Was otherwise in her normal state of health. Related Data Home Medications ?Medication ?Instructions ?Recorded ?Confirmed ?Last Taken ?Type aripiprazole 10 mg tablet 10 mg PO HS 06/16/24 06/16/24 Unknown History lamotrigine 200 mg tablet 200 mg PO HS 06/16/24 06/16/24 Unknown History Allergies Allergy/AdvReac Type Severity Reaction Status Date / Time tree nut Allergy Severe Anaphylaxis Verified 10/02/24 02:21 morphine Allergy Mild Agitated Verified 10/02/24 02:21 cefdinir (From Omnicef) Allergy Hives Verified 10/02/24 02:21 elagolix (From Orilissa) AdvReac Migraine Verified 10/02/24 02:21 escitalopram (From Lexapro) AdvReac Itching Verified 10/02/24 02:21 Review of Systems Review of Systems: As reviewed above in HPI [facility] Past Medical History Medical History History of suicide attempt Depression Endometriosis Asthma Pelvic pain Anxiety Surgical History Surgical History H/O laparoscopy Family History Family History Mother No pertinent past medical history Social History Social History Smoking status: Current some day smoker Tobacco type: e-cigarettes/vaping Alcohol intake: current Alcohol use details: 1-2/MONTH Substance use: current Substance use type: marijuana Other substance usage details: Daily Living arrangements: with family Additional living arrangements comments: MOM Gender identity (if verbalized by the patient): Female Spiritual care concerns: No Exam Narrative: GENERAL: Anxious appearing, complaining of throat closing, conversing in full sentences HEAD: [Normocephalic, atraumatic.] EYES: [PERRLA and EOMI.] ENT: Nares clear, no rhinorrhea or epistaxis. Mucous membranes moist. Posterior oropharynx without any erythema or exudates, no base of tongue swelling, no brawny neck edema. NECK: Supple. CHEST: [Clear to auscultation. No respiratory distress.] No stridor HEART: [Regular rate and rhythm]. No murmur heard. [Normal peripheral pulses.] ABDOMEN: [Soft, nondistended], [nontender], [No rigidity or guarding] EXTREMITIES: Normal range of motion. [No edema.] SKIN: Warm, dry, no rash. NEURO: [No focal deficits]. Alert and oriented [x3.] PSYCH: [Normal mood and affect.] Course Vital Signs Vital signs: Vital Signs Temperature 36.8 C 10/02/24 02:17 Pulse Rate 106 H 10/02/24 02:17 Respiratory Rate 20 10/02/24 02:17 Blood Pressure 132/80 10/02/24 02:17 Pulse Oximetry 100 10/02/24 02:17 Oxygen Delivery Room Air 10/02/24 02:17 Temperature 36.8 C 10/02/24 02:17 Pulse Rate 79 10/02/24 03:47 Respiratory Rate 16 10/02/24 03:47 Blood Pressure 105/60 10/02/24 03:47 Pulse Oximetry 99 10/02/24 03:47 Oxygen Delivery Room Air 10/02/24 02:31 MDM - Allergic Reaction MDM Narrative Medical decision making narrative: 24-year-old female with 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 Patient states that she had immediate sensation of throat closing, numbness and tingling in her face and lips and nauseousness with 1 episode of vomiting and feeling his she was having diarrhea. She presents about 30 minutes after the onset of symptoms. Did not use her epinephrine pen. Patient is very anxious appearing, is slightly tachycardic with a pulse of 106 but saturating well on room air. No hives or rash on her extremities are exam. She does have nauseousness, abdominal discomfort and sensations of numb lips and throat closing concerning for potential anaphylaxis given her history. She was given intramuscular epinephrine, IV Solu-Medrol Pepcid and diphenhydramine as well as a fluid bolus. Basic laboratory studies were obtained. Patient was re-evaluated for symptom management and will be observed here for several hours after epinephrine. Patient was treated for anaphylaxis here with great symptomatic resolution. Patient was re-evaluated after an hour and did not have any recurrence and still felt better. Discussed with her that we would like to observe her for several more hours given her allergic reaction and chances of rebound specially when the medications were off. Patient declined observation here in like to go home. She was given strict return precautions and she does have an epinephrine pen with her but she will sign against medical advice given that we would prefer to observe her for several hours for safety prior to a safe discharge. Medical Records Attestation: I reviewed the patient's medical records. Lab Data Attestation: I reviewed the patient's lab results. 10/02/24 02:50 10/02/24 02:50 Labs: Lab Results 10/02/24 Range/Units 02:50 WBC 7.5 (4.5-10.0) K/mm3 RBC 4.32 (4.2-5.4) M/mm3 Hgb 12.4 (12.0-15.0) g/dL Hct 37.9 (37.0-47.0) % MCV 87.7 (80-100) fl MCH 28.7 (26-34) pg MCHC 32.7 (32-36) g/dl RDW 12.6 (11.5-14.5) % Plt Count 214 (150-375) k/mm3 MPV 10.6 H (7.4-10.4) fl Immature Gran % (Auto) 0.1 (0-0.5) % Neut % (Auto) 65.4 (45.5-73.1) % Lymph % (Auto) 21.4 (18.3-44.2) % [place] % (Auto) 6.3 (2.6-8.5) % Eos % (Auto) 5.9 H (0-4.4) % Baso % (Auto) 0.9 (0.2-1.2) % Lymph # (Auto) 1.61 (0.9-3.2) K/mm3 [place] # (Auto) 0.5 (0.1-0.6) K/mm3 Eos # (Auto) 0.4 H (0-0.3) K/mm3 Baso # (Auto) 0.1 (0.0-0.1) K/mm3 Abs Immat Gran (auto) 0.01 (0.00-0.031) K/mm3 Absolute Neuts (auto) 4.9 (1.3-6.7) K/mm3 Absolute Nucleated RBC 0.000 (0.0-0.012) K/mm3 Nucleated RBC % 0.0 (0.0-0.2) % Sodium 140 (137-145) mmol/L Potassium 3.1 L (3.4-5.0) mmol/L Chloride 102 (98-107) mmol/L Carbon Dioxide 25 (22-30) mmol/L Anion Gap 13 H (4-12) mmol/L BUN 7 D (7-17) mg/dL Creatinine 0.65 L (0.7-1.0) mg/dL Estim Creat Clear Calc 97 ml/min Estimated GFR > 60 (59 - ) Glucose 82 (65-110) mg/dL Calcium 8.9 (8.4-10.2) mg/dL Discharge Plan Discharge Clinical Impression: Anaphylaxis Patient Disposition: Left Against Medical Advice Condition: Stable Patient Language: Congolese Prescriptions: No Action aripiprazole 10 mg tablet 10 mg PO HS lamotrigine 200 mg tablet 200 mg PO HS hydrocodone-acetaminophen 5-325 mg tablet 1 tablet PO Q4H PRN (Reason: pain) Qty: 30 0RF Follow-up/Referrals: PHYSICIAN,MINER ASSISTANT [Non-Staff] -
--- OUTSIDE RECORDS SUMMARY | 2024-10-02 02:39 | XMS_ITS | Clinical Summary ---
Author Organization [facility] Address [address] [place] [address] Care Team Providers Care Payroll Representative Name Role Phone Jennifer Reyes Primary Care Provider [phone] Allergies Active Allergy Reactions Criticality Noted Date [...] 06/12/2021 Assessment & Plan (06/12/2021 10:35 AM PUMP ERECTOR): Advised no drops in ear Advised wearing cotton in ear when showering for the next week Advised adding 500mg tylenol q6h prn pain to current ibuprofen regimen x 3d Advised f/u if not improving or if worsening over the next week Otalgia, right 06/12/2021 Assessment & Plan (06/12/2021 10:35 AM PUMP ERECTOR): Advised no drops in ear Advised wearing cotton in ear when showering for the next week Advised adding 500mg tylenol q6h prn pain to current ibuprofen regimen x 3d Advised f/u if not improving or if worsening over the next week Dermatitis 06/12/2021 Assessment & Plan (06/12/2021 10:36 AM PUMP ERECTOR): Will add steroid cream bid x 7 days. She was advised f/u in the next week if not improving, sooner if worsening. Tobacco use 06/12/2021 Assessment & Plan (06/12/2021 10:35 AM PUMP ERECTOR): Encouraged continued attempts at smoking cessation, discussed that the wellbutrin may benefit these attempts Moderate episode of recurrent major depressive d isorder 06/12/2021 Assessment & Plan (06/12/2021 10:36 AM PUMP ERECTOR): Continue with care per psychiatry Endometriosis 06/12/2021 Assessment & Plan (06/12/2021 10:36 AM PUMP ERECTOR): Continue with care per haulpak driver Psychogenic nonepileptic seizure 08/09/2020 Migraine without aura and wi thout status migrainosus, not intractable 04/23/2020 Episodes of decreased attentiveness 04/23/2020 Assessment & Plan (06/12/2021 10:36 AM PUMP ERECTOR): Continue with care per psychiatry Mild intermittent asthma 05/24/2018 Assessment & Plan (05/24/2018 4:45 AM PUMP ERECTOR): Present on admission, currently asymptomatic. -Albuterol PRN Multiple food allergies 05/24/2018 Assessment & Plan (05/24/2018 4:47 AM PUMP ERECTOR): Present on admission, currently asymptomatic. -Epinephrine 0.3mg IM PRN anaphylaxis Cervical pain (neck) 12/02/2016 Assessment & Plan (05/24/2018 4:47 AM PUMP ERECTOR): Present on admission. Given description as unilateral [...] Type Department Care Team Description 07/07/2024 Telephone [facility] Minimally Invasive Surgery [address] [facility] [address] 7th [address] [place] [address] Yessi Mukherjee, A New Referral [...] on file Legal Sex Female 11:46 PM PUMP ERECTOR Gender Identity Not on file Sexual Orientation [...] CDT Oxygen Saturation 99% 06/02/2022 10:15 AM PUMP ERECTOR Inhaled Oxygen Concentration - - Weight 52.7 [...] Vaccine (Season Ended) 2024 05/25/19, 05/25/2018 Insurance [employer] [facility] AETNA [facility] IDPA [facility] OPEN ACCESS IDPA [facility] HEALTHCARE [facility] Advance Directives For more information, please contact: [phone] Documents on File Type Date Recorded Patient Legal Advisor Expl anation ADVANCE DIRECTIVE 05/24/2018 12:50 AM * Full Code (Latest Code Status on File) Date Activated Date Inactivated Comments 06/27/2020 8:51 AM 06/30/2020 8:59 PM * Full Code Date Activated Date Inactivated Comments 05/24/2018 2:35 AM 05/25/2018 6:00 PM Care Teams Payroll Representative Relationship Specialty Start Date End Date Jennifer Reyes PA PCP - General Optometric Technician 06/12/21
--- OUTSIDE RECORDS SUMMARY | 2024-10-02 02:39 | XMS_ITS | Referral Summary ---
Author Organization [facility] Address [address] [place] [address] Care Team Providers Care Loom Operator Apprentice Name Role Phone Jennifer Reyes Primary Care Provider [phone]- [phone] Encounters Date Type Department Care Team Description 07/07/2024 [facility] [address] [facility] [facility] [address] 7th [address] [place] [address] Yessi Mukherjee, [facility] New Referral from Last 3 Months Allergies [...] 06/12/2021 Assessment & Plan (06/12/2021 10:35 AM OLERICULTURE TEACHER): Advised no drops in ear Advised wearing cotton in ear when showering for the next week Advised adding 500mg tylenol q6h prn pain to current ibuprofen regimen x 3d Advised f/u if not improving or if worsening over the next week Otalgia, right 06/12/2021 Assessment & Plan (06/12/2021 10:35 AM OLERICULTURE TEACHER): Advised no drops in ear Advised wearing cotton in ear when showering for the next week Advised adding 500mg tylenol q6h prn pain to current ibuprofen regimen x 3d Advised f/u if not improving or if worsening over the next week Dermatitis 06/12/2021 Assessment & Plan (06/12/2021 10:36 AM OLERICULTURE TEACHER): Will add steroid cream bid x 7 days. She was advised f/u in the next week if not improving, sooner if worsening. Tobacco use 06/12/2021 Assessment & Plan (06/12/2021 10:35 AM OLERICULTURE TEACHER): Encouraged continued attempts at smoking cessation, discussed that the wellbutrin may benefit these attempts Moderate episode of recurrent major depressive d isorder 06/12/2021 Assessment & Plan (06/12/2021 10:36 AM OLERICULTURE TEACHER): Continue with care per psychiatry Endometriosis 06/12/2021 Assessment & Plan (06/12/2021 10:36 AM OLERICULTURE TEACHER): Continue with care per it security administrator Psychogenic nonepileptic seizure 08/09/2020 Migraine without aura and wi thout status migrainosus, not intractable 04/23/2020 Episodes of decreased attentiveness 04/23/2020 Assessment & Plan (06/12/2021 10:36 AM OLERICULTURE TEACHER): Continue with care per psychiatry Mild intermittent asthma 05/24/2018 Assessment & Plan (05/24/2018 4:45 AM OLERICULTURE TEACHER): Present on admission, currently asymptomatic. -Albuterol PRN Multiple food allergies 05/24/2018 Assessment & Plan (05/24/2018 4:47 AM OLERICULTURE TEACHER): Present on admission, currently asymptomatic. -Epinephrine 0.3mg IM PRN anaphylaxis Cervical pain (neck) 12/02/2016 Assessment & Plan (05/24/2018 4:47 AM OLERICULTURE TEACHER): Present on admission. Given description as unilateral [...] on file Legal Sex Female 11:46 PM OLERICULTURE TEACHER Gender Identity Not on file Sexual Orientation [...] CDT Oxygen Saturation 99% 06/02/2022 10:15 AM OLERICULTURE TEACHER Inhaled Oxygen Concentration - - Weight 52.7 kg (116 lb 3.2 oz) 01/27/2023 2:59 P M CDT Height 162.6 cm (5' 4) 01/27/2023 2:59 PM CDT Body Mass Index 19.95 01/27/2023 2:59 PM CDT Plan of Treatment Not on file Insurance [employer] OPEN ACCESS [employer] OPEN ACCESS AETNA [facility] IDPA [facility] OPEN ACCESS IDPA [facility] PLAN [facility] Advance Directives For more information, please contact: [phone] Documents on File Type Date Recorded Patient Terra Cotta Setter Expl anation ADVANCE DIRECTIVE 05/24/2018 12:50 AM * Full Code (Latest Code Status on File) Date Activated Date Inactivated Comments 06/27/2020 8:51 AM 06/30/2020 8:59 PM * Full Code Date Activated Date Inactivated Comments 05/24/2018 2:35 AM 05/25/2018 6:00 PM Care Teams Loom Operator Apprentice Relationship Specialty Start Date End Date Jennifer Reyes PA PCP - General Hospice Bereavement Coordinator 06/12/21
--- OUTSIDE RECORDS SUMMARY | 2024-10-02 02:39 | XMS_ITS | Clinical Summary ---
Author Organization [facility] Address [address] [place] [address] Phone Care Team Providers Care Line Fisher Name Role Phone Unavailable Primary Care Provider [...] 2023, 09/17/2020 Medical Devices Implanted Type Area Investigations Manager Device Identifier Shelf Expiration Date Model / Serial / Lot Barrier Interceed Adh 3x4in 4350 - [id number] Implanted:Qt y: 1 on 02/04/2024 by Rahul Kilgore MD at [facility] Adhesion Barrier N/A: Pelvis [employer] [id number] 04/26/2028 [id number] / / [id number] Barrier Interceed Adh 3x4in 4350 - [id number] Implanted:Qt y: 1 on 02/04/2024 by Rahul Kilgore MD at [facility] Adhesion Barrier N/A: Pelvis [employer] [id number] 04/26/2028 [id number] / / [id number] Insurance CIG OPEN ACCESS HMO RX [employer] Advance Directives For more information, please contact: [phone] * Full Code (Latest Code Status on File) Date Activated Date Inactivated Comments 02/04/2024 11:42 AM 02/04/2024 4:01 PM * Full Code Date Activated Date Inactivated Comments 02/04/2024 9:22 AM 02/04/2024 11:42 AM
--- OUTSIDE RECORDS SUMMARY | 2024-10-02 02:39 | XMS_ITS | Clinical Summary ---
Author Organization [facility] Address [address] [place] [address] Care Team Providers Care Gauge Controller Name Role Phone Denise Dyson COORDINATOR INTEGRATED MARKETING-MOTOR SCOOTER MECHANIC Primary Care Provider + Source Comments [facility],non-owned Affiliates and Associated Physician Practices is amultiple site organization consisting of ambulatory clinics and hospital sitesin [place], [place], [place] and [place]. This disclosure is being madepursuant to the Care Everywhere program and may not contain all information available regarding this patient. Last updated 18.[facility] Allergies Active Allergy Reactions Criticality Noted Date Comments Adhesive Sensitivity Rash Medium 01/27/2024 Blue Oil Anaphylaxis High 02/09/2022 Cefdinir Diarrhea,Other,Urtic ar [...] stress disorder) 09/01/2024 Bipolar affective disorder 12/24/2023 longterm current use [...] Assessment & Plan: Continue with care per lead pharmacy technician Last Assessment & Plan: Continue with care per lead pharmacy technician Dermatitis 06/12/2021 02/03/2023 Overview (02/03/2023): Last Assessment [...] Description 09/01/2024 12:20 PM CDT Office Visit [facility] - Family Medicine [address] [facility], [address] [address] Denise Dyson, COORDINATOR INTEGRATED MARKETING-[facility] Encounter for medical examination to establish care [...] Immunization Administration Dates Next Due INFLUENZA A [id number] VACCINE 05/25/2020 INFLUENZA VACCINE, QUADR. 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 Gender Identity Not on file Sexual [...] - 09/05/2024 11:07 PM CDT Performed at: [address] [place] [id number] Sales Facilitator: Eloise Milian MD, Phone: [phone] Denise Dyson COORDINATOR INTEGRATED MARKETING-[facility] LAB - MICROBIOLOGY ORDER TU Final Result Performing Organization Address [facility] Co de Phone Number [facility] INSURANCE BILL [address] [place] [address] * HIV-1 HIV-2 ANTIBODY + HIV P24 AG PANEL (09/02/2024 2:47 PM CDT) Pathologist [facility] HIV Screen 4th Generation w Reflex Non Reactive Non Reactive [facility] INSURANCE BILL Comment: HIV-1/HIV-2 antibodies and HIV-1 p24 antigen were NOT detected. There is no laboratory evidence of HIV infection. HIV Negative Blood BLOOD SPECIMEN / Unknown 09/02/2024 2:47 PM CDT 09/02/2024 Narrative [facility] INSURANCE BILL - 09/03/2024 8:11 AM CDT Performed at: [address] [id number] Sales Facilitator: Kevin Dan PhD, Phone: [phone] Denise Dyson APRN-MOTOR SCOOTER MECHANIC LAB - CHEMISTRY ORDERABL ES Final Result Performing Organization Address [facility] Co de Phone Number [facility] INSURANCE BILL [address] [place] [address] * TSH HI LOW REFLEX FREE T4 (09/02/2024 2:47 PM CDT) Pathologist [facility] TSH 1.850 0.450 - 4.500 uIU/mL [facility] INSURANCE BILL Blood BLOOD SPECIMEN / Unknown 09/02/2024 2:47 PM CDT 09/02/2024 Narrative [facility] INSURANCE BILL - 09/03/2024 8:11 AM CDT Performed at: - [facility] [address] [id number] Sales Facilitator: Kevin Dan PhD, Phone: [phone] Denise Dyson APRN-[facility] LAB - CHEMISTRY ORDERABL ES Final Result Performing Organization Address [facility] Co de Phone Number [facility] INSURANCE BILL [address] [place] [address] * (ABNORMAL) VITAMIN D 25-HYDROXY (09/02/2024 2:47 PM CDT) [facility] Vitamin D, 25 Hydroxy 25.1(L) 30.0 - 100.0 ng/mL [facility] INSURANCE BILL Comment: Vitamin D deficiency has been defined by the [place] of [employer] and an Endocrine Society practice guideline as a level of serum 25-OH vitamin D less than 20 ng/mL (1,2). The Endocrine Society went on to further define vitamin D insufficiency as a level between 21 and 29 ng/mL (2). 1. IOM ([place] of [employer]). 2010. Dietary reference intakes for [...] 7:09 AM CDT Performed at: - [facility] [address] [id number] Sales Facilitator: Kevin Dan PhD, Phone: [phone] Denise Dyson COORDINATOR INTEGRATED MARKETING-MOTOR SCOOTER MECHANIC LAB - CHEMISTRY ORDERABL ES Final Result Performing Organization Address [facility]/ZIP Co de Phone Number [facility] INSURANCE BILL [address] [place] [address] * CBC WITH DIFFERENTIAL (09/02/2024 2:47 PM [...] 7:09 AM CDT Performed at: 01 - [address] [id number] Sales Facilitator: Kevin Dan PhD, Phone: [phone] us Denise Dyson COORDINATOR INTEGRATED MARKETING-MOTOR SCOOTER MECHANIC LAB - HEMATOLOGY ORDERAB LES Final Result [facility] INSURANCE BILL [address] [place] [address] * (ABNORMAL) COMPREHENSIVE METABOLIC PANEL (09/02/2024 2:47 [...] 8:11 AM CDT Performed at: 01 - [facility] [address] [place], [place] [id number] Sales Facilitator: Kevin Dan PhD, Phone: [phone] us Denise Dyson COORDINATOR INTEGRATED MARKETING-MOTOR SCOOTER MECHANIC LAB - CHEMISTRY ORDERABL ES Final Result [facility] INSURANCE BILL [address] [place] [address] * HEPATITIS C ANTIBODY (09/02/2024 2:47 PM [...] 09/03/2024 7:09 AM CDT Performed at: - [address] [id number] Sales Facilitator: Kevin Dan PhD, Phone: [phone] Denise Dysno COORDINATOR INTEGRATED MARKETING-MOTOR SCOOTER MECHANIC LAB - CHEMISTRY ORDERABL ES Final Result Performing Organization Address [facility]/ZIP Co de Phone Number [facility] [address] [place] [address] * VITAMIN B12 (09/02/2024 2:46 PM CDT) Vitamin B12 485 232 - 1,245 pg/mL [facility] INSURANCE BILL Blood BLOOD SPECIMEN / Unknown 09/02/2024 2:46 PM CDT 09/02/2024 Narrative [facility] INSURANCE BILL - 09/03/2024 8:11 AM CDT Performed at: [address] [id number] Sales Facilitator: Kevin Dan PhD, Phone: [phone] Denise Dyson COORDINATOR INTEGRATED MARKETING-MOTOR SCOOTER MECHANIC LAB - CHEMISTRY ORDERABL ES Final Result Performing Organization Address City/[facility]/ZIP Co de Phone Number [facility] B[facility] [address] [place] [address] from Last 3 Months Insurance [employer] Care Teams Gauge Controller Relationship Specialty Start Date End Date Denise Dyson, COORDINATOR INTEGRATED MARKETING-MOTOR SCOOTER MECHANIC [address] [place] [address] PCP - General Nurse Practitioner 03/25/23
--- OUTSIDE RECORDS SUMMARY | 2024-10-02 02:39 | XMS_ITS | Continuity of Care Document ---
Author Organization [facility] Address [address] [place] [address] Phone Care Team Providers Care Rehabilitation Program Coordinator Name Role Phone Conversion MD, Doctor Unavailable [...] Diagnoses Date Provider Providers Copied on Encounter [facility], [address], [place], [place], [id number], tel:[phone] Conversion Department No Information 1 Conversion Doctor. [address] [place] [address], [address], . [facility], [address], [place], [address], tel:[phone] [facility] No Information 8 Noble Gleason. [address] [place] [address], [id number], . tel:[phone] Family History Family Member Type Diagnosis Age At Onset No Information Payers Payer name Insurance type Covered green party ID Authoriza tion(s) No Information Social [...]
--- OUTSIDE RECORDS SUMMARY | 2024-10-02 02:39 | XMS_ITS | Clinical Summary ---
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
--- OUTSIDE RECORDS SUMMARY | 2024-10-02 02:39 | XMS_ITS | Patient Health Record ---
Author Organization [facility] [employer] Address [address] [facility] [address] [place] [address] Care Team Providers Care Pin Setter Name Role Phone Herlinda Arriola Unavailable [phone] Allergies Allergen (clinical drug ingredient) Drug/Non Drug Allergy documented on EMR Reaction Allergy Type Onset Date Status TREE NUT (uncoded) Unknown Allergy 08/21/2023 Active escitalopram Lexapro Unknown Drug Allergy 08/21/2023 Act adam Omnicef Unknown Drug Allergy 08/21/2023 Active Reason For Referral No Information Medications Medication SIG (Take, Route, Fr equency, Duration) Notes Start Date End Date Status hydrOXYzine HCl 10 MG 1 tablet Orally three times a day for 90 days As needed Active lamoTRIgine 200 MG 1 tablet Oral Once a day for 90 days Active ARIPiprazole 10 MG 1 tablet Oral Once a day for 90 days Active DULoxetine HCl 30 MG 1 capsule Orally On ce a day for 30 day(s) 08/23/2024 Active Immunizations Vaccine Route Administration Date Status Comme nts Pfizer Biontech Covid-19 Vac cine 2nd dose Unknown 09/17/2020 Administered Pfizer Biontech Covid-19 Vac cine 2nd dose Unknown 10/08/2020 Administered Novel [id number], preservative free Unknown 05/25/2020 Administered Social History Tobacco Use: Social History [...] you currently employed?: YesWho is your employer?: skip WrightWhat 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 SexualityWhat is [...] NoDo you have a medical power of privacy attorney?: NoPublic Health and TravelHave you been to [...] Problem Bipolar affective disorder, currently depressed, mild (419478594) Bipolar disorder, current episode depressed, mild (F31.31) 08/21/19 24 Active confirmed Problem Generalized anxiety disorder (56034948) Generalized anxiety disorder (F41.1) 08/21/19 24 Active confirmed Problem Posttraumatic stress disorder (72125537) Post-traumatic stress disorder, chronic (F43.12) 08/21/19 24 Active confirmed Problem Insomnia disorder related to another mental disorder (71021638) Insomnia due to other mental disorder (F51.05) 08/21/19 24 Active confirmed Problem Screening for cardiovascular system disease (064962223) Encounter for screening for cardiovascular disorders (Z13.6) Active confirmed Problem Long-term current use of drug therapy (743895327) Other long chain beamer (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 (Z79.899) 08/21/19 Active confirmed Problem Depression Screening (155889863) Encounter for screening for depression (Z13.31) Active confirmed Problem 94694358 ADHD (attention deficit hyperactivity disorder), combined type (F90.2) Active confirmed Vital Signs Heart Rate 67 /min 08/23/2024 Respiratory Rate 18 /min 01/11/2024 Height-cm 162.56 cm 08/23/2024 Blood pressure diastolic 72 mm Hg 08/23/2024 Weight-kg 58.97 kg 08/23/2024 Height 64.00 in 08/23/2024 Blood pressure systolic 108 mm Hg 08/23/2024 Weight 130 lbs 08/23/2024 BMI 22.31 kg/m2 08/23/2024 Encounters Encounter Location Date Provider Diagnosis Treato [address] [facility] [address] [address] 10/15/2023 Herlinda Arriola Bipolar disorder, current episode depressed, mild F31.31 ; Generalized anxiety disorder F41.1 ; Insomnia due to other mental disorder F51.05 ; Post-traumatic stress disorder, chronic F43.12 and Other long chain beamer (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 Z79.899 [employer] [facility] [address] [facility] [address] [address] 11/12/2023 Herlinda Arriola Bipolar disorder, current episode depressed, mild F31.31 ; Generalized anxiety disorder F41.1 ; Insomnia due to other mental disorder F51.05 ; Post-traumatic stress disorder, chronic F43.12 and Other assisted (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 Z79.899 [employer] [facility] [address] [facility] [address] [address] 01/11/2024 Herlinda Arriola Bipolar disorder, current episode depressed, mild F31.31 ; Generalized anxiety disorder F41.1 ; Insomnia due to other mental disorder F51.05 ; Post-traumatic stress disorder, chronic F43.12 and Other long chain beamer (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 Z79.899 [employer] [facility] [address] [facility] [address] [address] 02/01/2024 Herlinda Arriola Bipolar disorder, current episode depressed, mild F31.31 ; Generalized anxiety disorder F41.1 ; Insomnia due to other mental disorder F51.05 ; Post-traumatic stress disorder, chronic F43.12 and Other long chain beamer (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 Z79.899 [facility] [employer] [facility] [address] [place] [address] [place] [address] 02/29/2024 Herlinda Arriola Bipolar disorder, current episode depressed, mild F31.31 ; Generalized anxiety disorder F41.1 ; Insomnia due to other mental disorder F51.05 ; Post-traumatic stress disorder, chronic F43.12 and Other long chain beamer (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 Z79.899 [facility] [employer] [facility] [address] [place] [address] [place] [address] 04/14/2024 Herlinda Arriola Bipolar disorder, current episode depressed, mild F31.31 ; Generalized anxiety disorder F41.1 ; Insomnia due to other mental disorder F51.05 ; Post-traumatic stress disorder, chronic F43.12 and Other assisted (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 Z79.899 [facility] [employer] [facility] [address] [place] [address] [place] [address] 05/16/2024 Herlinda Arriola Bipolar disorder, current episode depressed, mild F31.31 ; Generalized anxiety disorder F41.1 ; Insomnia due to other mental disorder F51.05 ; Post-traumatic stress disorder, chronic F43.12 and Other assisted (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 Z79.899 [facility] [employer], [facility] [address] [place] [address] [place] [address] 06/02/2024 Herlinda Arriola Bipolar disorder, current episode depressed, mild F31.31 ; Generalized anxiety disorder F41.1 ; Insomnia due to other mental disorder F51.05 ; Post-traumatic stress disorder, chronic F43.12 and Other long chain beamer (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 Z79.899 [facility] [employer], [facility] [address] [place] [address] [place] [address] 06/10/2024 Herlindahugo Arriola Bipolar disorder, current episode depressed, mild F31.31 ; Generalized anxiety disorder F41.1 ; Insomnia due to other mental disorder F51.05 ; Post-traumatic stress disorder, chronic F43.12 and Other long chain beamer (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 Z79.899 [facility], [facility] [address] [facility] [address] [place] [address] 06/24/2024 Herlinda Arriola Bipolar disorder, current episode depressed, mild F31.31 ; Generalized anxiety disorder F41.1 ; Insomnia due to other mental disorder F51.05 ; Post-traumatic stress disorder, chronic F43.12 and Other long chain beamer (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 Z79.899 [facility], [place] [id number] [facility] [address] [facility] [address] [place] [address] 08/08/2024 Herlinda Arriola Encounter for screen ing for depression Z13.31 ; Encounter for screening for cardiovascular disorders Z13.6 ; Bipolar disorder, current episode depressed, mild F31.31 ; Generalized anxiety disorder F41.1 ; Insomnia due to other mental disorder F51.05 ; Post-traumatic stress disorder, chronic F43.12 ; Other assisted (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 Z79.899 and ADHD (attention deficit hyperactivity disorder), combined type F90.[address] [facility] [address] [place] [address] 08/23/2024 Herlinda Arriola Encounter for screen ing for depression Z13.31 ; Encounter for screening for cardiovascular disorders Z13.6 ; Bipolar disorder, current episode depressed, mild F31.31 ; Generalized anxiety disorder F41.1 ; Insomnia due to other mental disorder F51.05 ; Post-traumatic stress disorder, chronic F43.12 ; Other assisted (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 Z79.899 ; ADHD (attention deficit hyperactivity disorder), combined type F90.2 and Nicotine use Z72.0 [place] [address] [facility] [address] [place] [address] 09/16/2024 Herlinda Arriola [facility], [facility] [address] [address] 10/13/2023 Herlinda Arriola [facility], [place] [address] [facility] [address] [place] [address] 04/13/2024 Herlinda Arriola [facility], [place] [address] [facility] [address] [place] [address] 05/16/2024 Herlinda Arriola [facility] [address] [place] [address] [place] [address] 08/22/2024 Herlinda Arriola [facility] [employer] [facility] [address] [place] [address] [place] [address] 08/22/2024 Herlinda Arriola [facility] [employer] [facility] [address] [place] [address] [place] [address] 08/22/2024 Herlinda Flako Assessments Encounter Date Diagnosis (ICD Code) Assessment Notes Treatment Notes Treatment Clinical Notes Section Notes 08/23/2024 Encounter for screening for depression (ICD-10 - Z13.31) Learning About Depression Screening material was published 1. Bipolar I disorder, most recent episode depression - educated to take rx as prescribed Abilify 10 mg at bedtime continue rx and educated on complaince rx jaleel 05/19 https://www.[employer]/cannabis-use -disorder-marijuana- adhd/ Lamotrigine 200 mg - schedule weekly appointment for depression and situational stress educated on [...] FND 2. 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 Chronic post-traumatic stress disorder -therapy 5. ADHD Discuss and educated D/C Straterra 40 mg daily in am- Patient stopped 2 weeks ago - had depression on rx . Long-term drug therapy - 06/10/2024 Bipolar disorder, [...] and educated on complaince rx jaleel 05/19 https://www.[employer]/cannabis-use -disorder-marijuana- adhd/ Lamotrigine 200 mg - patient [...] FND 2. 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 Generalized anxiety disorder -continue medications dining room helper PRESCRIBES Xanax - educated to take as [...] and educated on complaince rx jaleel 05/19 https://www.[employer]/cannabis-use -disorder-marijuana- adhd/ Increase Lamotrigine 200 mg - [...] FND 2. 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 Long-term drug therapy - 02/29/2024 Bipolar [...] and educated on complaince rx jaleel 05/19 https://www.[employer]/cannabis-use -disorder-marijuana- adhd/ Lamotrigine 100 mg - patient reported depression mild Patient reprted been taking Lamotrigine 100 mg last week and improved mood , did not decrease to 50 mg last visit educated on Lamotrigine and watch for rash Lamotriginelamotrigi ne has a serious rashes requiring hospitalization and [...] FND 2. 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 Long-term drug therapy - 01/11/2024 Bipolar disorder, current episode depressed, mild [...] rx 4-5 days continue rx jaleel 05/19 https://www.[email or web address]/cannabis-use -disorder-marijuana- adhd/ Lamotrigine 100 mg - patient reported depression mild and been off rx 4-5 days and would like to GDR - will decrease Lamotrgrine 50 mg daily educated on Lamotrigine and watch for rash Lamotriginelamotrigi ne has a serious rashes requiring hospitalization and [...] FND 2. Generalized anxiety disorder -continue medications dining room helper PRESCRIBES Xanax - educated to take as [...] mg at bedtime started 05/22/22 jaleel 05/19 https://www.[email or web address]/cannabis-use -disorder-marijuana- adhd/ Lamotrigine 100 mg - patient requested leave from school for 10 days 08/13/23- 08/24/23 educated on Lamotrigine and watch for rash Allenotrigincassi herman has a serious rashes requiring hospitalization and [...] mild 2. 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 Long-term drug therapy - 10/15/2023 Bipolar disorder, current episode depressed, mild [...] educated on Lamotrigine and watch for rash Lamotriginelamotrigi virgil has a serious rashes requiring hospitalization and [...] mild 2. Generalized anxiety disorder -continue medications dining room helper PRESCRIBES Xanax - educated to take as [...] educated on Lamotrigine and watch for rash Lamotriginelamotrigi ne has a serious rashes requiring hospitalization and [...] mild 2. 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 Long-term drug therapy - 06/24/2024 Bipolar disorder, current episode depressed, mild (ICD-10 [...] and educated on complaince rx jaleel 05/19 no refill needed today https://www.[email or web address]/cannabis-use -disorder-marijuana- adhd/ Lamotrigine 200 mg - patient [...] FND 2. Generalized anxiety disorder -continue medications dining room helper PRESCRIBES Xanax - educated to take as prescribed to help anxiety and panic hx Vistaril 10 mg- educated on rx Visatril 10 mg three times as needed for anxiety and panic- educated ot take rx for anxiety patient reported caused passive SI thoughts 08/21/23 [...] disorder -therapy 5. Long-term drug therapy - 08/08/2024 Encounter for screening for depression (ICD-10 - Z13.31) Learning About Depression Screening material was published 1. Bipolar I disorder, most recent episode depression - educated to take rx as prescribed Abilify 10 mg at bedtime continue rx and educated on complaince rx jaleel 05/19 https://www.[employer]/cannabis-use -disorder-marijuana- adhd/ Lamotrigine 200 mg - patient [...] FND 2. 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 Chronic post-traumatic stress disorder -therapy 5. ADHD Discuss and educated on Straterra 40 mg daily in am . Long-term drug therapy - 04/14/2024 Bipolar disorder, [...] and educated on complaince rx jaleel 05/19 https://www.[employer]/cannabis-use -disorder-marijuana- adhd/ Increase Lamotrigine 150 mg - patient reported depression increase educated on Lamotrigine and watch for rash Lamotriginelamotrigi ne has a serious rashes requiring hospitalization and [...] FND 2. Generalized anxiety disorder -continue medications dining room helper PRESCRIBES Xanax - educated to take as [...] and educated on complaince rx jaleel 05/19 https://www.[employer]/cannabis-use -disorder-marijuana- adhd/ Lamotrigine 100 mg - patient reported depression mild and been off rx 4-5 days and would like to GDR - will decrease Lamotrgrine 50 mg daily educated on Lamotrigine and watch for rash Lamotriginelamotrigi ne has a serious rashes requiring hospitalization and [...] FND 2. 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 Long-term drug therapy - 02/01/2024 Generalized [...] and educated on complaince rx jaleel 05/19 https://www.[email or web address]/cannabis-use -disorder-marijuana- adhd/ Lamotrigine 100 mg - patient reported depression mild and been off rx 4-5 days and would like to GDR - will decrease Lamotrgrine 50 mg daily educated on Lamotrigine and watch for rash Lamotriginelamotrigi ne has a serious rashes requiring hospitalization and [...] FND 2. Generalized anxiety disorder -continue medications dining room helper PRESCRIBES Xanax - educated to take as [...] and educated on complaince rx jaleel 05/19 https://www.[employer]com/cannabis-use -disorder-marijuana- adhd/ Increase Lamotrigine 150 mg - patient reported depression increase educated on Lamotrigine and watch for rash Lamotriginelamotrigi ne has a serious rashes requiring hospitalization and [...] FND 2. Generalized anxiety disorder -continue medications dining room helper PRESCRIBES Xanax - educated to take as [...] disorder -therapy 5. Long-term drug therapy - 08/08/2024 Encounter for screening for cardiovascular disorders (ICD-10 - Z13.6) 1. Bipolar I disorder, most recent episode depression - educated to take rx as prescribed Abilify 10 mg at bedtime continue rx and educated on complaince rx jaleel 05/19 https://www.[email or web address]/cannabis-use -disorder-marijuana- adhd/ Lamotrigine 200 mg - patient [...] FND 2. 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 Chronic post-traumatic stress disorder -therapy 5. ADHD Discuss and educated on Straterra 40 mg daily in am . Long-term drug therapy - 10/15/2023 Insomnia due to other mental disorder (ICD-10 - F51.05) 1. Bipolar I disorder, most recent episode depression - educated to take rx as prescribed Abilify 10 mg at bedtime started 05/22/22 jaleel 05/19 Lamotrigine 100 mg - patient requested leave from school for 10 days 08/13/23- 08/24/23 educated on Lamotrigine and watch for rash Jose Guadalupe herman has a serious rashes requiring hospitalization and [...] mild 2. 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 Long-term drug therapy - 06/24/2024 Generalized anxiety disorder (ICD-10 - F41.1) Generalized [...] and educated on complaince rx jaleel 05/19 no refill needed today https://www.[employer]/cannabis-use -disorder-marijuana- adhd/ Lamotrigine 200 mg - patient [...] FND 2. 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 Long-term drug therapy - 11/12/2023 Generalized anxiety disorder (ICD-10 - F41.1) Generalized Anxiety Disorder: Care Instructions material was published, Learning About Generalized Anxiety Disorder material was published, Learning About Anxiety Disorders material was published 1. Bipolar I disorder, most recent episode depression - educated to take rx as prescribed Abilify 10 mg at bedtime started 05/22/22 jaleel 05/19 https://www.[employer]/cannabis-use -disorder-marijuana- adhd/ Lamotrigine 100 mg - patient requested leave from school for 10 days 08/13/23- 08/24/23 educated on Lamotrigine and watch for rash Lamotriginelamotrigi ne has a serious rashes requiring hospitalization and [...] mild 2. Generalized anxiety disorder -continue medications dining room helper PRESCRIBES Xanax - educated to take as [...] rx 4-5 days continue rx jaleel 05/19 https://www.[email or web address]/cannabis-use -disorder-marijuana- adhd/ Lamotrigine 100 mg - patient reported depression mild and been off rx 4-5 days and would like to GDR - will decrease Lamotrgrine 50 mg daily educated on Lamotrigine and watch for rash Lamotriginelamotrigi ne has a serious rashes requiring hospitalization and [...] FND 2. Generalized anxiety disorder -continue medications dining room helper PRESCRIBES Xanax - educated to take as [...] and educated on complaince rx jaleel 05/19 https://www[employer]com/cannabis-use -disorder-marijuana- adhd/ Lamotrigine 100 mg - patient reported depression mild Patient reprted been taking Lamotrigine 100 mg last week and improved mood , did not decrease to 50 mg last visit educated on Lamotrigine and watch for rash Lamotriginelamotrigi ne has a serious rashes requiring hospitalization and [...] FND 2. Generalized anxiety disorder -continue medications dining room helper PRESCRIBES Xanax - educated to take as [...] and educated on complaince rx jaleel 05/19 https://www.[employer]/cannabis-use -disorder-marijuana- adhd/ Increase Lamotrigine 200 mg - [...] FND 2. 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 Generalized anxiety disorder -continue medications dining room helper PRESCRIBES Xanax - educated to take as [...] disorder -therapy 5. Long-term drug therapy - 08/23/2024 Encounter for screening for cardiovascular disorders (ICD-10 - Z13.6) 1. Bipolar I disorder, most recent episode depression - educated to take rx as prescribed Abilify 10 mg at bedtime continue rx and educated on complaince rx jaleel 05/19 https://www.[employer]/cannabis-use -disorder-marijuana- adhd/ Lamotrigine 200 mg - schedule weekly appointment for depression and situational stress educated on [...] FND 2. 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 Chronic post-traumatic stress disorder -therapy 5. ADHD Discuss and educated D/C Straterra 40 mg daily in am- Patient stopped 2 weeks ago - had depression on rx . Long-term drug therapy - 08/23/2024 Bipolar disorder, current episode depressed, mild (ICD-10 [...] Disorders From Antipsychotic Medicines material was published, Bipolar Disorder: Care Instructions material was published, Learning About Movement Disorders From Antipsychotic Medicines material was published, Learning About Mood Disorders material was published 1. Bipolar I disorder, most recent episode depression - educated to take rx as prescribed Abilify 10 mg at bedtime continue rx and educated on complaince rx jaleel 05/19 https://www.[email or web address]/cannabis-use -disorder-marijuana- adhd/ Lamotrigine 200 mg - schedule weekly appointment for depression and situational stress educated on [...] FND 2. 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 Chronic post-traumatic stress disorder -therapy 5. ADHD Discuss and educated D/C Straterra 40 mg daily in am- Patient stopped 2 weeks ago - had depression on rx . Long-term drug therapy - 06/10/2024 Insomnia due to other mental disorder (ICD-10 - F51.05) 1. Bipolar I disorder, most recent episode depression - educated to take rx as prescribed Abilify 10 mg at bedtime continue rx and educated on complaince rx jaleel 05/19 https://www.[email or web address]/cannabis-use -disorder-marijuana- adhd/ Lamotrigine 200 mg - patient [...] FND 2. 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 Generalized anxiety disorder -continue medications dining room helper PRESCRIBES Xanax - educated to take as [...] and educated on complaince rx jaleel 05/19 https://www.[employer]/cannabis-use -disorder-marijuana- adhd/ Increase Lamotrigine 200 mg - [...] FND 2. Generalized anxiety disorder -continue medications dining room helper PRESCRIBES Xanax - educated to take as [...] and educated on complaince rx jaleel 05/19 https://www.[employer]/cannabis-use -disorder-marijuana- adhd/ Lamotrigine 100 mg - patient reported depression mild Patient reprted been taking Lamotrigine 100 mg last week and improved mood , did not decrease to 50 mg last visit educated on Lamotrigine and watch for rash Lamotriginelamotrigi virgil has a serious rashes requiring hospitalization and [...] FND 2. 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 Long-term drug therapy - 10/15/2023 Post-traumatic stress disorder, chronic (ICD-10 - F43.12) Post-Traumatic Stress Disorder (PTSD): Care Instructions material was published 1. Bipolar I disorder, most recent episode depression - educated to take rx as prescribed Abilify 10 mg at bedtime started 05/22/22 jaleel 05/19 Lamotrigine 100 mg - patient requested leave from school for 10 days 08/13/23- 08/24/23 educated on Lamotrigine and watch for rash Lamotriginelamotrigi ne has a serious rashes requiring hospitalization and [...] mild 2. 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 Long-term drug therapy - 11/12/2023 Insomnia due to other mental disorder (ICD-10 - F51.05) 1. Bipolar I disorder, most recent episode depression - educated to take rx as prescribed Abilify 10 mg at bedtime started 05/22/22 jaleel 05/19 https://www.[employer]/cannabis-use -disorder-marijuana- adhd/ Lamotrigine 100 mg - patient requested leave from school for 10 days 08/13/23- 08/24/23 educated on Lamotrigine and watch for rash Lamotriginelamotrigi ne has a serious rashes requiring hospitalization and [...] mild 2. 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 Long-term drug therapy - 08/08/2024 Bipolar disorder, current episode depressed, mild (ICD-10 [...] Disorders From Antipsychotic Medicines material was published, Bipolar Disorder: Care Instructions material was published, Learning About Movement Disorders From Antipsychotic Medicines material was published, Learning About Mood Disorders material was published 1. Bipolar I disorder, most recent episode depression - educated to take rx as prescribed Abilify 10 mg at bedtime continue rx and educated on complaince rx jaleel 05/19 https://www.[email or web address]/cannabis-use -disorder-marijuana- adhd/ Lamotrigine 200 mg - patient [...] FND 2. 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 Chronic post-traumatic stress disorder -therapy 5. ADHD Discuss and educated on Straterra 40 mg daily in am . Long-term drug therapy - 08/08/2024 Generalized anxiety disorder (ICD-10 - F41.1) Generalized [...] and educated on complaince rx jaleel 05/19 https://www.[employer]/cannabis-use -disorder-marijuana- adhd/ Lamotrigine 200 mg - patient [...] FND 2. 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 Chronic post-traumatic stress disorder -therapy 5. ADHD Discuss and educated on Straterra 40 mg daily in am . Long-term drug therapy - 06/24/2024 Insomnia due to other mental disorder (ICD-10 - F51.05) 1. Bipolar I disorder, most recent episode depression - educated to take rx as prescribed Abilify 10 mg at bedtime continue rx and educated on complaince rx jaleel 05/19 no refill needed today https://www.[employer]/cannabis-use -disorder-marijuana- adhd/ Lamotrigine 200 mg - patient [...] FND 2. 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 Long-term drug therapy - 02/01/2024 Insomnia due to other mental disorder (ICD-10 - F51.05) 1. Bipolar I disorder, most recent episode depression - educated to take rx as prescribed Abilify 10 mg at bedtime started 05/22/22- continue rx and educated on complaince rx jaleel 05/19 https://www.[email or web address]/cannabis-use -disorder-marijuana- adhd/ Lamotrigine 100 mg - patient reported depression mild and been off rx 4-5 days and would like to GDR - will decrease Lamotrgrine 50 mg daily educated on Lamotrigine and watch for rash Lamotriginelamotrigi ne has a serious rashes requiring hospitalization and [...] FND 2. 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 Long-term drug therapy - 02/01/2024 Post-traumatic stress disorder, chronic (ICD-10 - F43.12) Post-Traumatic Stress Disorder (PTSD): Care Instructions material was published, Post-Traumatic Stress Disorder (PTSD): Care Instructions material was published 1. Bipolar I disorder, most recent episode depression - educated to take rx as prescribed Abilify 10 mg at bedtime started 05/22/22- continue rx and educated on complaince rx jaleel 05/19 https://www.[email or web address]/cannabis-use -disorder-marijuana- adhd/ Lamotrigine 100 mg - patient reported depression mild and been off rx 4-5 days and would like to GDR - will decrease Lamotrgrine 50 mg daily educated on Lamotrigine and watch for rash Lamotriginelamotrigi ne has a serious rashes requiring hospitalization and [...] FND 2. 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 Long-term drug therapy - 04/14/2024 Post-traumatic stress disorder, chronic (ICD-10 - F43.12) Post-Traumatic Stress Disorder (PTSD): Care Instructions material was published, Post-Traumatic Stress Disorder (PTSD): Care Instructions material was published 1. Bipolar I disorder, most recent episode depression - educated to take rx as prescribed Abilify 10 mg at bedtime started 05/22/22- continue rx and educated on complaince rx jaleel 05/19 https://www.[email or web address]/cannabis-use -disorder-marijuana- adhd/ Increase Lamotrigine 150 mg - patient reported depression increase educated on Lamotrigine and watch for rash Lamotriginelamotrigi ne has a serious rashes requiring hospitalization and [...] FND 2. 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 Long-term drug therapy - 10/15/2023 Other long chain beamer (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 (ICD-10 - Z79.899) Medication Refill: Care Instructions material was published 1. Bipolar I disorder, most recent episode depression - educated to take rx as prescribed Abilify 10 mg at bedtime started 05/22/22 jaleel 05/19 Lamotrigine 100 mg - patient requested leave from school for 10 days 08/13/23- 08/24/23 educated on Lamotrigine and watch for rash Allenotrigincassi herman has a serious rashes requiring hospitalization and [...] mild 2. 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 Long-term drug therapy - 08/08/2024 Insomnia due to other mental disorder (ICD-10 - F51.05) 1. Bipolar I disorder, most recent episode depression - educated to take rx as prescribed Abilify 10 mg at bedtime continue rx and educated on complaince rx jaleel 05/19 https://www.[employer]/cannabis-use -disorder-marijuana- adhd/ Lamotrigine 200 mg - patient [...] FND 2. 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 Chronic post-traumatic stress disorder -therapy 5. ADHD Discuss and educated on Straterra 40 mg daily in am . Long-term drug therapy - 06/24/2024 Post-traumatic stress disorder, chronic (ICD-10 - F43.12) Post-Traumatic Stress Disorder (PTSD): Care Instructions material was published, Post-Traumatic Stress Disorder (PTSD): Care Instructions material was published 1. Bipolar I disorder, most recent episode depression - educated to take rx as prescribed Abilify 10 mg at bedtime continue rx and educated on complaince rx jaleel 05/19 no refill needed today https://www.[employer]/cannabis-use -disorder-marijuana- adhd/ Lamotrigine 200 mg - patient [...] FND 2. 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 Long-term drug therapy - 11/12/2023 Post-traumatic stress disorder, chronic (ICD-10 - F43.12) Post-Traumatic Stress Disorder (PTSD): Care Instructions material was published 1. Bipolar I disorder, most recent episode depression - educated to take rx as prescribed Abilify 10 mg at bedtime started 05/22/22 jaleel 05/19 https://www.[employer]/cannabis-use -disorder-marijuana- adhd/ Lamotrigine 100 mg - patient requested leave from school for 10 days 08/13/23- 08/24/23 educated on Lamotrigine and watch for rash Lamotriginelamotrigi ne has a serious rashes requiring hospitalization and [...] mild 2. 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 Long-term drug therapy - 01/11/2024 Post-traumatic stress disorder, chronic (ICD-10 - F43.12) Post-Traumatic Stress Disorder (PTSD): Care Instructions material was published, Post-Traumatic Stress Disorder (PTSD): Care Instructions material was published 1. Bipolar I disorder, most recent episode depression - educated to take rx as prescribed Abilify 10 mg at bedtime started 05/22/22- reported been off rx 4-5 days continue rx jaleel 05/19 https://www.[employer]/cannabis-use -disorder-marijuana- adhd/ Lamotrigine 100 mg - patient reported depression mild and been off rx 4-5 days and would like to GDR - will decrease Lamotrgrine 50 mg daily educated on Lamotrigine and watch for rash Lamotriginelamotrigi ne has a serious rashes requiring hospitalization and [...] FND 2. 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 Long-term drug therapy - 02/29/2024 Post-traumatic stress disorder, chronic (ICD-10 - F43.12) Post-Traumatic Stress Disorder (PTSD): Care Instructions material was published, Post-Traumatic Stress Disorder (PTSD): Care Instructions material was published 1. Bipolar I disorder, most recent episode depression - educated to take rx as prescribed Abilify 10 mg at bedtime started 05/22/22- continue rx and educated on complaince rx jaleel 05/19 https://www.[email or web address]/cannabis-use -disorder-marijuana- adhd/ Lamotrigine 100 mg - patient reported depression mild Patient reprted been taking Lamotrigine 100 mg last week and improved mood , did not decrease to 50 mg last visit educated on Lamotrigine and watch for rash Lamotriginelamotrigi ne has a serious rashes requiring hospitalization and [...] FND 2. 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 Generalized anxiety disorder -continue medications dining room helper PRESCRIBES Xanax - educated to take as [...] disorder -therapy 5. Long-term drug therapy - 08/23/2024 Generalized anxiety disorder (ICD-10 - F41.1) Generalized [...] and educated on complaince rx jaleel 05/19 https://www.[employer]/cannabis-use -disorder-marijuana- adhd/ Lamotrigine 200 mg - schedule weekly appointment for depression and situational stress educated on [...] FND 2. 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 Chronic post-traumatic stress disorder -therapy 5. ADHD Discuss and educated D/C Straterra 40 mg daily in am- Patient stopped 2 weeks ago - had depression on rx . Long-term drug therapy - 06/10/2024 Post-traumatic stress disorder, chronic (ICD-10 - F43.12) Post-Traumatic Stress Disorder (PTSD): Care Instructions material was published, Post-Traumatic Stress Disorder (PTSD): Care Instructions material was published 1. Bipolar I disorder, most recent episode depression - educated to take rx as prescribed Abilify 10 mg at bedtime continue rx and educated on complaince rx jaleel 05/19 https://www.[employer]/cannabis-use -disorder-marijuana- adhd/ Lamotrigine 200 mg - patient [...] FND 2. 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 Long-term drug therapy - 06/10/2024 Other long chain beamer (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 (ICD-10 - Z79.899) Medication Refill: Care Instructions material was published, Medication Refill: Care Instructions material was published 1. Bipolar I disorder, most recent episode depression - educated to take rx as prescribed Abilify 10 mg at bedtime continue rx and educated on complaince rx jaleel 05/19 https://www.[employer]/cannabis-use -disorder-marijuana- adhd/ Lamotrigine 200 mg - patient [...] FND 2. 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 Bipolar I disorder, most recent episode depression - educated to take rx as prescribed Abilify 10 mg at bedtime continue rx and educated on complaince rx jaleel 05/19 https://www.[email or web address]/cannabis-use -disorder-marijuana- adhd/ Lamotrigine 200 mg - patient [...] FND 2. Generalized anxiety disorder -continue medications dining room helper PRESCRIBES Xanax - educated to take as [...] Long-term drug therapy - 05/16/2024 Other long chain beamer (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 (ICD-10 - Z79.899) Medication Refill: Care Instructions material was published, Medication Refill: Care Instructions material was published 1. Bipolar I disorder, most recent episode depression - educated to take rx as prescribed Abilify 10 mg at bedtime continue rx and educated on complaince rx jaleel 05/19 https://www.[email or web address]/cannabis-use -disorder-marijuana- adhd/ Increase Lamotrigine 200 mg - [...] FND 2. 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 Long-term drug therapy - 02/29/2024 Other long chain beamer (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 (ICD-10 - Z79.899) Medication Refill: Care Instructions material was published, Medication Refill: Care Instructions material was published 1. Bipolar I disorder, most recent episode depression - educated to take rx as prescribed Abilify 10 mg at bedtime started 05/22/22- continue rx and educated on complaince rx jaleel 05/19 https://www.[employer]com/cannabis-use -disorder-marijuana- adhd/ Lamotrigine 100 mg - patient reported depression mild Patient reprted been taking Lamotrigine 100 mg last week and improved mood , did not decrease to 50 mg last visit educated on Lamotrigine and watch for rash Jose Guadalupe herman has a serious rashes requiring hospitalization and [...] FND 2. 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 Long-term drug therapy - 01/11/2024 Other long chain beamer (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 (ICD-10 - Z79.899) Medication Refill: Care Instructions material was published, Medication Refill: Care Instructions material was published 1. Bipolar I disorder, most recent episode depression - educated to take rx as prescribed Abilify 10 mg at bedtime started 05/22/22- reported been off rx 4-5 days continue rx jaleel 05/19 https://www.[employer]/cannabis-use -disorder-marijuana- adhd/ Lamotrigine 100 mg - patient reported depression mild and been off rx 4-5 days and would like to GDR - will decrease Lamotrgrine 50 mg daily educated on Lamotrigine and watch for rash Lamotriginelamotrigi ne has a serious rashes requiring hospitalization and [...] FND 2. 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 Bipolar I disorder, most recent episode depression - educated to take rx as prescribed Abilify 10 mg at bedtime started 05/22/22 jaleel 05/19 https://www.[employer]/cannabis-use -disorder-marijuana- adhd/ Lamotrigine 100 mg - patient requested leave from school for 10 days 08/13/23- 08/24/23 educated on Lamotrigine and watch for rash Lamotriginelamotrigi virgil has a serious rashes requiring hospitalization and [...] mild 2. 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 Long-term drug therapy - 08/08/2024 Post-traumatic stress disorder, chronic (ICD-10 - F43.12) Post-Traumatic Stress Disorder (PTSD): Care Instructions material was published, Post-Traumatic Stress Disorder (PTSD): Care Instructions material was published, Post-Traumatic Stress Disorder (PTSD): Care Instructions material was published 1. Bipolar I disorder, most recent episode depression - educated to take rx as prescribed Abilify 10 mg at bedtime continue rx and educated on complaince rx jaleel 05/19 https://www.[employer]/cannabis-use -disorder-marijuana- adhd/ Lamotrigine 200 mg - patient [...] FND 2. 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 Chronic post-traumatic stress disorder -therapy 5. ADHD Discuss and educated on Straterra 40 mg daily in am . 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 Bipolar I disorder, most recent episode depression - educated to take rx as prescribed Abilify 10 mg at bedtime continue rx and educated on complaince rx jaleel 05/19 https://www.[employer]/cannabis-use -disorder-marijuana- adhd/ Lamotrigine 200 mg - schedule weekly appointment for depression and situational stress educated on [...] FND 2. 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 Chronic post-traumatic stress disorder -therapy 5. ADHD Discuss and educated D/C Straterra 40 mg daily in am- Patient stopped 2 weeks ago - had depression on rx . Long-term drug therapy - 06/24/2024 Other long chain beamer (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 (ICD-10 - Z79.899) Medication Refill: Care Instructions material was published, Medication Refill: Care Instructions material was published 1. Bipolar I disorder, most recent episode depression - educated to take rx as prescribed Abilify 10 mg at bedtime continue rx and educated on complaince rx jaleel 05/19 no refill needed today https://www.[employer]com/cannabis-use -disorder-marijuana- adhd/ Lamotrigine 200 mg - patient [...] FND 2. Generalized anxiety disorder -continue medications dining room helper PRESCRIBES Xanax - educated to take as prescribed to help anxiety and panic hx Vistaril 10 mg- educated on rx Visatril 10 mg three times as needed for anxiety and panic- educated ot take rx for anxiety patient reported caused passive SI thoughts 08/21/23 [...] 5. Long-term drug therapy - 04/14/2024 Other assisted (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 (ICD-10 - Z79.899) Medication Refill: Care Instructions material was published, Medication Refill: Care Instructions material was published 1. Bipolar I disorder, most recent episode depression - educated to take rx as prescribed Abilify 10 mg at bedtime started 05/22/22- continue rx and educated on complaince rx jaleel 05/19 https://www.[employer]com/cannabis-use -disorder-marijuana- adhd/ Increase Lamotrigine 150 mg - patient reported depression increase educated on Lamotrigine and watch for rash Lamotrigincassi herman has a serious rashes requiring hospitalization and [...] FND 2. 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 Long-term drug therapy - 02/01/2024 Other assisted (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 (ICD-10 - Z79.899) Medication Refill: Care Instructions material was published, Medication Refill: Care Instructions material was published 1. Bipolar I disorder, most recent episode depression - educated to take rx as prescribed Abilify 10 mg at bedtime started 05/22/22- continue rx and educated on complaince rx jaleel 05/19 https://www.[employer].Last Guide/cannabis-use -disorder-marijuana- adhd/ Lamotrigine 100 mg - patient reported depression mild and been off rx 4-5 days and would like to GDR - will decrease Lamotrgrine 50 mg daily educated on Lamotrigine and watch for rash Allenotrigincassi herman has a serious rashes requiring hospitalization and [...] FND 2. Generalized anxiety disorder -continue medications dining room helper PRESCRIBES Xanax - educated to take as [...] disorder -therapy 5. Long-term drug therapy - 08/08/2024 Other assisted (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 (ICD-10 - Z79.899) Medication Refill: Care Instructions material was published, Medication Refill: Care Instructions material was published, Medication Refill: Care Instructions material was published 1. Bipolar I disorder, most recent episode depression - educated to take rx as prescribed Abilify 10 mg at bedtime continue rx and educated on complaince rx jaleel 05/19 https://www.[employer]/cannabis-use -disorder-marijuana- adhd/ Lamotrigine 200 mg - patient [...] FND 2. 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 Chronic post-traumatic stress disorder -therapy 5. ADHD Discuss and educated on Straterra 40 mg daily in am . Long-term drug therapy - 08/23/2024 Post-traumatic stress disorder, chronic (ICD-10 - F43.12) Post-Traumatic Stress Disorder (PTSD): Care Instructions material was published, Post-Traumatic Stress Disorder (PTSD): Care Instructions material was published, Post-Traumatic Stress Disorder (PTSD): Care Instructions material was published 1. Bipolar I disorder, most recent episode depression - educated to take rx as prescribed Abilify 10 mg at bedtime continue rx and educated on complaince rx jaleel 05/19 https://www.[employer]/cannabis-use -disorder-marijuana- adhd/ Lamotrigine 200 mg - schedule weekly appointment for depression and situational stress educated on [...] FND 2. 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 Chronic post-traumatic stress disorder -therapy 5. ADHD Discuss and educated D/C Straterra 40 mg daily in am- Patient stopped 2 weeks ago - had depression on rx . Long-term drug therapy - 08/23/2024 Other long chain beamer (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 (ICD-10 - Z79.899) Medication Refill: Care Instructions material was published, Medication Refill: Care Instructions material was published, Medication Refill: Care Instructions material was published 1. Bipolar I disorder, most recent episode depression - educated to take rx as prescribed Abilify 10 mg at bedtime continue rx and educated on complaince rx jaleel 05/19 https://www.[employer]/cannabis-use -disorder-marijuana- adhd/ Lamotrigine 200 mg - schedule weekly appointment for depression and situational stress educated on [...] FND 2. 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 Chronic post-traumatic stress disorder -therapy 5. ADHD Discuss and educated D/C Straterra 40 mg daily in am- Patient stopped 2 weeks ago - had depression on rx . Long-term drug therapy - 08/08/2024 ADHD (attention deficit hyperactivity disorder), combined type (ICD-10 - F90.2) Attention Deficit Hyperactivity Disorder (ADHD) in Adults: Care Instructions material was published, Learning About Attention Deficit Hyperactivity Disorder (ADHD) in Adults material was published, Learning About Stimulant Medicines for Attention Deficit Hyperactivity Disorder (ADHD) material was published 1. Bipolar I disorder, most recent episode depression - educated to take rx as prescribed Abilify 10 mg at bedtime continue rx and educated on complaince rx jaleel 05/19 https://www.[employer]com/cannabis-use -disorder-marijuana- adhd/ Lamotrigine 200 mg - patient [...] FND 2. 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 Chronic post-traumatic stress disorder -therapy 5. ADHD Discuss and educated on Straterra 40 mg daily in am . Long-term drug therapy - 08/23/2024 ADHD (attention deficit hyperactivity disorder), combined type (ICD-10 - F90.2) Attention Deficit Hyperactivity Disorder (ADHD) in Adults: Care Instructions material was published, Learning About Attention Deficit Hyperactivity Disorder (ADHD) in Adults material was published, Learning About Stimulant Medicines for Attention Deficit Hyperactivity Disorder (ADHD) material was published 1. Bipolar I disorder, most recent episode depression - educated to take rx as prescribed Abilify 10 mg at bedtime continue rx and educated on complaince rx jaleel 05/19 https://www.[employer].Last Guide/cannabis-use -disorder-marijuana- adhd/ Lamotrigine 200 mg - schedule weekly appointment for depression and situational stress educated on [...] FND 2. 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 Chronic post-traumatic stress disorder -therapy 5. ADHD Discuss and educated D/C Straterra 40 mg daily in am- Patient stopped 2 weeks ago - had depression on rx . Long-term drug therapy - 08/23/2024 Nicotine use (ICD-10 - Z72.0) 1. Bipolar I disorder, most recent episode depression - educated to take rx as prescribed Abilify 10 mg at bedtime continue rx and educated on complaince rx jaleel 05/19 https://www.[employer]/cannabis-use -disorder-marijuana- adhd/ Lamotrigine 200 mg - schedule weekly appointment for depression and situational stress educated on [...] FND 2. 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 Chronic post-traumatic stress disorder -therapy 5. ADHD Discuss and educated D/C Straterra 40 mg daily in am- Patient stopped 2 weeks ago - had depression on rx . Long-term drug therapy - 10/15/2023 Other 1. [...] depressed, mild 2. 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 Chronic post-traumatic stress disorder -nrsmrilE49.12: Post-traumatic stress disorder, chronic 5. Long-term drug [...] educated on Lamotrigine and watch for rash Lamotriginelamotrigi ne has a serious rashes requiring hospitalization and [...] mild 2. Generalized anxiety disorder -continue medications dining room helper PRESCRIBES Xanax - educated to take as [...] rx 4-5 days continue rx jaleel 05/19 https://www.[employer]com/cannabis-use -disorder-marijuana- adhd/ Lamotrigine 100 mg - patient reported depression mild and been off rx 4-5 days and would like to GDR - will decrease Lamotrgrine 50 mg daily educated on Lamotrigine and watch for rash Lamotriginelamotrigi ne has a serious rashes requiring hospitalization and [...] FND 2. Generalized anxiety disorder -continue medications dining room helper PRESCRIBES Xanax - educated to take as [...] disorder -therapy 5. Long-term drug therapy - 08/08/2024 Other Aripiprazole material was published, Lamotrigine material was published, Hydroxyzine material was published, Atomoxetine material was published 1. Bipolar I disorder, most recent episode depression - educated to take rx as prescribed Abilify 10 mg at bedtime continue rx and educated on complaince rx jaleel 05/19 https://www.[employer]com/cannabis-use -disorder-marijuana- adhd/ Lamotrigine 200 mg - patient [...] FND 2. 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 Chronic post-traumatic stress disorder -therapy 5. ADHD Discuss and educated on Straterra 40 mg daily in am . Long-term drug therapy - Plan Of Treatment No Information Insurance Providers Payer Name Payer Address Payer Phone Subscriber Number Group Number Insured Name Patient Relationship to Insured Coverage Start Date Coverage End Date Petey PENALOZA [id number] [place]HIRAM [id number] TRAVIS MACHADO Child - Insured has Financial [...]
--- OUTSIDE RECORDS SUMMARY | 2024-10-02 02:39 | XMS_ITS | Clinical Summary ---
Author Organization [facility] Address [address] [place] [address] Phone Care Team Providers Care Tractor Technician Name Role Phone Jennifer Reyes Primary Care Provider [phone] Allergies Active Allergy Reactions Criticality Noted Date [...] Assessment & Plan: Continue with care per hosiery mender Otalgia of right ear 06/12/2021 Overview (12/11/2021): [...] Insurance [employer] [place] - [place] Care Teams Tractor Technician Relationship Specialty Start Date End Date Jennifer Reyes PA PCP - General Family Medicine 01/02/22
--- OUTSIDE RECORDS SUMMARY | 2024-10-02 02:39 | XMS_ITS | Continuity of Care Document ---
Author Organization [facility] Address [address] [place] [address] Phone Care Team Providers Care Microsoft Application Developer Name Role Phone Joan CHOI, Pineda Unavailable [...] Encounter [facility], [address] [place] [address], [address] [place] [address], tel:[phone] [facility] No Information 1 Joan Sung. [address] [place] [address], [address] [place] [address] , . tel:[phone] Referring Provider: Scarlet Li, [address] [place] [address], [place], [place], [address] [place] [address] . tel:[phone] [facility], [address] [place] [address], [id number], tel:[phone] [facility] No Information 1 Yazan Novak. [address] [place] [address], [address], [address] [place] [address] , . tel:[phone] Referring Provider: Scarlet Li, [address] [place] [address], [place], [place], [address] [place] [address] . tel:[phone] [facility], [address] [place] [address], [id number], tel:[phone] [facility] No Information 1 Joan Sung. [address] [place] [address], [address], [id number] , . tel:[phone] Referring Provider: Scarlet Li, [address] [place] [address], [place], [place], [address] [place] [address] . tel:[phone] [facility], [address] [place] [address], [id number], tel:[phone] [facility] No Information 1 Steffi [facility] Gurvinder. [address] [facility], [place], [place], [facility], [place]. tel:[phone] Referring Provider: Scarlet Li, [address] [place] [address], [place], [address] . tel:[phone] PREVENTIVE COUNSELING, INDIV [facility], [address] [place] [address], [place], [place], [id number], tel:[phone] [facility] allergy symptoms (chief complaint) Oth adverse food reactions, not elsewhere classified, initAllergy to nuts other than peanutsAsthmaOthe r allergic rhinitis 1 Steffi [facility] Gurvinder. [address] [facility], [place], [place], [facility], [place]. tel:[phone] Referring Provider: Scarlet Li, [address] [place] [address], [place], [address] . tel:[phone] Family History Family Member Type Diagnosis Age At Onset No Information Payers Payer name Insurance type Covered constitution party ID Kalen flowers(s) Petey [id number] Social History Type Description Quantity Date Captured Comments Sex Female Smoking Status No Information Chief Complaint And Reason For Visit No Information Reason For Referral Reason For Referral No Information Plan Of Treatment Date Type Action Status Future Order: Lab Order ALMOND I gE (F20) ([id number]), Ordered on: Ordered Future Order: Lab Order Comanche N ut IgE W/Component Reflex ([id number]), Ordered on: Ordered Future Order: Lab Order Cashew N ut IgE W/Component Reflex ([id number]), Ordered on: Ordered Future Order: Lab Order Hazelnut IgE W/Component Reflex ([id number]), Ordered on: Ordered Future Order: Lab Order IgE, TOT AL ([id number]), Ordered on: Ordered Future Order: Lab Order Macadami a IgE (RF345) ([id number]), Ordered on: Ordered Future Order: Lab Order PECAN NU T IgE (F201) ([id number]), Ordered on: Ordered Future Order: Lab Order PISTACHI O NUT IgE (F203) ([id number]), Ordered on: Ordered History Of Present Illness [...] throat feeling. Reports being highly allergic to Comanche Nuts. Eats peanut butter routinely.She reports her [...] for this semester. 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
[2024-10-02] MEDS: EPINEPHrine HCL INJ 1 MG/ML AMPUL 0.3 MG IM (02:44)
[2024-10-02] MEDS: LACTATED RINGERS 1,000 ML 999 ML IV CONT (02:50)
[2024-10-02] MEDS: diphenhydrAMINE HCl INJ 50 MG/ML VIAL IV PUSH (02:50)
[2024-10-02] MEDS: methylPREDNISolone SOD SUCC 125 MG VIAL IV PUSH (02:52)
[2024-10-02] MEDS: FAMOTIDINE 20 MG/2 ML VIAL IV PUSH (02:53)
[2024-10-02 02:57] LABS: Basophils Absolute Auto 0.1 K/mm3 (0.0-0.1); Basophils Percent Auto 0.9 % (0.2-1.2); Eosinophils Absolute Auto 0.4 K/mm3 (0-0.3); Eosinophils Percent Auto 5.9 % (0-4.4); Hematocrit 37.9 % (37.0-47.0); Hemoglobin 12.4 g/dL (12.0-15.0); Immature Granulocyte Absolute 0.01 K/mm3 (0.00-0.031); Immature Granulocyte Percent A 0.1 % (0-0.5); Lymphocytes Absolute Auto 1.61 K/mm3 (0.9-3.2); Lymphocytes Percent Auto 21.4 % (18.3-44.2); Mean Corpuscular HGB Conc 32.7 g/dl (32-36); Mean Corpuscular Hemoglobin 28.7 pg (26-34); Mean Corpuscular Volume 87.7 fl (80-100); Mean Platelet Volume 10.6 fl (7.4-10.4); Monocytes Absolute Auto 0.5 K/mm3 (0.1-0.6); Monocytes Percent Auto 6.3 % (2.6-8.5); Neutrophils Absolute Auto 4.9 K/mm3 (1.3-6.7); Neutrophils Percent Auto 65.4 % (45.5-73.1); Platelet Count Result 214 k/mm3 (150-375); Red Blood Count 4.32 M/mm3 (4.2-5.4); Red Cell Distribution Width 12.6 % (11.5-14.5); White Blood Count 7.5 K/mm3 (4.5-10.0)
[2024-10-02 03:10] LABS: Anion Gap 13 mmol/L (4-12); Blood Urea Nitrogen 7 mg/dL (7-17); Calcium 8.9 mg/dL (8.4-10.2); Carbon Dioxide 25 mmol/L (22-30); Chloride 102 mmol/L (98-107); Estimated CRCL calculation 97 ml/min; Estimated Glomerular Filt Rate > 60; Glucose 82 mg/dL (65-110); Potassium 3.1 mmol/L (3.4-5.0); Sodium 140 mmol/L (137-145)
== END 2024-10-02 03:49 | disposition left against medical advice (07) ==
LOC: ANHED 02:38
PROVIDERS: Emergency Provider Student in an Organized Health Care Education/Training Program; PCP Nurse Practitioner Family
DX: T78.05XA Anaphylactic reaction due to tree nuts and seeds, initial encounter (principal); F17.290 Nicotine dependence, other tobacco product, uncomplicated; F32.A Depression, unspecified; J45.909 Unspecified asthma, uncomplicated; F41.9 Anxiety disorder, unspecified
CPT/HCPCS: 36415; 80048; 85025; 96361; 96372; 96374; 96375; 99284; J0171; J1200; J2919; J7120

== ENCOUNTER 2024-11-16 03:50 | Emergency (ER) | payer OTHER, SELFPAY ==
--- OUTSIDE RECORDS SUMMARY | 2024-11-16 03:52 | XMS_ITS | Clinical Summary ---
Author Organization [facility] Address [address] [place] [address] Phone Care Team Providers Care Nail Puller Name Role Phone Jennifer Reyes Primary Care Provider [phone] Allergies Active Allergy Reactions Criticality Noted Date [...] Assessment & Plan: Continue with care per timber deadener Otalgia of right ear 06/12/2021 Overview (12/11/2021): [...] ( season) 2023, 09/17/2020 Influenza Vaccine (#1) 2024 05/25/2020, 2018 Insurance [employer] [place]ICA[place] - [place] Care Teams Nail Puller Relationship Specialty Start Date End Date Jennifer Reyes PA PCP - General Family Medicine 01/02/22
--- OUTSIDE RECORDS SUMMARY | 2024-11-16 03:52 | XMS_ITS | Clinical Summary ---
Author Organization [facility] Address [address] [place] [address] Care Team Providers Care Travel Nurse Name Role Phone Denise Dyson HIGH SCHOOL AUTO REPAIR TEACHER-BILLBOARD ERECTOR Primary Care Provider + Source Comments [facility],non-owned Affiliates and Associated Physician Practices is amultiple site organization consisting of ambulatory clinics and hospital sitesin [place], [place], [place] and [place]. This disclosure is being madepursuant to the Care Everywhere program and may not contain all information available regarding this patient. 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 drug 2023 Insomnia [...] Assessment & Plan: Continue with care per band booker Last Assessment & Plan: Continue with care per band booker Dermatitis 06/12/2021 02/03/2023 Overview (02/03/2023): Last Assessment [...] navicular bone of right foot 6 02/03/2023 History of suicide attempt Resolved Problems Problem Noted Date Diagnosed Date [...] Description 09/01/2024 12:20 PM CDT Office Visit [facility] - Family Medicine [address] [place] [id number] Denise Dyson, HIGH SCHOOL AUTO REPAIR TEACHER-BILLBOARD ERECTOR Encounter for medical examination to establish care [...] Immunization Administration Dates Next Due INFLUENZA A H3O7-23 VACCINE 05/25/2020 INFLUENZA VACCINE, QUADR. (F LUZONE; [...] on file Legal Sex Female 5:40 AM TWIST TESTER Gender Identity Not on file Sexual Orientation [...] season) 2023 10/08/2020, 09/17/2020 INFLUENZA VACCINE (#1) 2024 , 05/25/2020, 05/25/2018 PAP SMEAR 12/26/2024 12/26/2021 CHLAMYDIA/GONORRHEA [...] - 09/05/2024 11:07 PM CDT Performed at: [address] [id number] Product Safety Test Engineer: Eloise Milian MD, Phone: [phone] Denise Dyson HIGH SCHOOL AUTO REPAIR TEACHER-[facility] - MICROBIOLOGY ORDER TU Final Result Performing Organization Address [facility]/ZIP Co de Phone Number [facility] INSURANCE BILL [address] [place] [address] * HIV-1 HIV-2 ANTIBODY + HIV P24 AG PANEL (09/02/2024 2:47 PM CDT) Pathologist [facility] HIV Screen 4th Generation w Reflex Non Reactive Non Reactive [facility] INSURANCE BILL Comment: HIV-1/HIV-2 antibodies and HIV-1 p24 antigen were NOT detected. There is no laboratory evidence of HIV infection. HIV Negative Blood BLOOD SPECIMEN / Unknown 09/02/2024 2:47 PM CDT 09/02/2024 Narrative [facility] INSURANCE BILL - 09/03/2024 8:11 AM CDT Performed at: [address] [id number] Product Safety Test Engineer: Kevin Dan PhD, Phone: [phone] Denise Dyson HIGH SCHOOL AUTO REPAIR TEACHER-BILLBOARD ERECTOR LAB - CHEMISTRY ORDERABL ES Final Result Performing Organization Address [facility]/ZIP Co de Phone Number [facility] INSURANCE BILL [address] [place] [address] * TSH HI LOW REFLEX FREE T4 (09/02/2024 2:47 PM CDT) Pathologist [facility] TSH 1.850 0.450 - 4.500 uIU/mL [facility] INSURANCE BILL Blood BLOOD SPECIMEN / Unknown 09/02/2024 2:47 PM CDT 09/02/2024 Narrative [facility] INSURANCE BILL - 09/03/2024 8:11 AM CDT Performed at: - [facility] [id number] Product Safety Test Engineer: Kevin Dan PhD, Phone: [phone] Denisesofya Dyson HIGH SCHOOL AUTO REPAIR TEACHER-[facility] - CHEMISTRY ORDERABL ES Final Result Performing Organization Address [facility] Co de Phone Number [facility] INSURANCE BILL [address] [place] [address] * (ABNORMAL) VITAMIN D 25-HYDROXY (09/02/2024 2:47 PM CDT) Vitamin D, 25 Hydroxy 25.1(L) 30.0 - 100.0 ng/mL [facility] INSURANCE BILL Comment: Vitamin D deficiency has been defined by the [place] of Medicine and an Endocrine Society practice guideline as a level of serum 25-OH vitamin D less than 20 ng/mL (1,2). The Endocrine Society went on to further define vitamin D insufficiency as a level between 21 and 29 ng/mL (2). 1. IOM ([place] of Medicine). 2010. Dietary reference intakes for [...] 09/03/2024 7:09 AM CDT Performed at: - [address] [id number] Product Safety Test Engineer: Kevin Dan PhD, Phone: [phone] Denise Dyson HIGH SCHOOL AUTO REPAIR TEACHER-BILLBOARD ERECTOR LAB - CHEMISTRY ORDERABL ES Final Result Performing Organization Address City/[facility]/ZIP Co de Phone Number [facility] INSURANCE BILL [address] [place] [address] * CBC WITH DIFFERENTIAL (09/02/2024 2:47 PM [...] 7:09 AM CDT Performed at: 01 - [address] [id number] Product Safety Test Engineer: Kevin Dan PhD, Phone: [phone] us Denise Dyson HIGH SCHOOL AUTO REPAIR TEACHER-BILLBOARD ERECTOR LAB - HEMATOLOGY ORDERAB LES Final Result [facility] INSURANCE BILL [address] [place] [address] * (ABNORMAL) COMPREHENSIVE METABOLIC PANEL (09/02/2024 2:47 [...] 8:11 AM CDT Performed at: 01 - [place] [id number] [place], [place] [id number] Product Safety Test Engineer: Kevin Dan PhD, Phone: [phone] us Denise Dyson HIGH SCHOOL AUTO REPAIR TEACHER-BILLBOARD ERECTOR LAB - CHEMISTRY ORDERABL ES Final Result [facility] INSURANCE BILL [address] [place] [address] * HEPATITIS C ANTIBODY (09/02/2024 2:47 PM [...] 09/03/2024 7:09 AM CDT Performed at: - [address] [id number] Product Safety Test Engineer: Kevin Dan PhD, Phone: [phone] Denise Dyson HIGH SCHOOL AUTO REPAIR TEACHER-BILLBOARD ERECTOR LAB - CHEMISTRY ORDERABL ES Final Result Performing Organization Address [facility]/ZIP Co de Phone Number [facility] [address] [place] [address] * VITAMIN B12 (09/02/2024 2:46 PM CDT) Vitamin B12 485 232 - 1,245 pg/mL [facility] INSURANCE BILL Blood BLOOD SPECIMEN / Unknown 09/02/2024 2:46 PM CDT 09/02/2024 Narrative [facility] INSURANCE BILL - 09/03/2024 8:11 AM CDT Performed at: [address] [id number] Product Safety Test Engineer: Kevin Dan PhD, Phone: [phone] Denise Dyson HIGH SCHOOL AUTO REPAIR TEACHER-BILLBOARD ERECTOR LAB - CHEMISTRY ORDERABL ES Final Result Performing Organization Address City/[facility]/ZIP Co de Phone Number [facility] [address] [place] [address] from Last 3 Months Insurance [employer] Care Teams Travel Nurse Relationship Specialty Start Date End Date Denise Dyson, HIGH SCHOOL AUTO REPAIR TEACHER-BILLBOARD ERECTOR [address] [facility] [address] [place] [id number] PCP - General Nurse Practitioner 03/25/23
--- OUTSIDE RECORDS SUMMARY | 2024-11-16 03:52 | XMS_ITS | Clinical Summary ---
Author Organization [facility] Address [address] [place] [address] Phone Care Team Providers Care Entry Driver Operator Name Role Phone Unavailable Primary Care Provider [...] Encounters Date Type Department Care Team Description 11/09/2024 External Device Data STL ABSTRACTION Provider, Abstract 11/09/2024 External Device Data STL ABSTRACTION Provider, Abstract 10/11/2024 External Device Data STL ABSTRACTION Provider, Abstract 09/20/2024 External Device Data STL ABSTRACTION Provider, [...] = 0.6 oz pur e alcohol) monthly Comments No Sex and Gender Information Value [...] series) 2018 CERVICAL CANCER SCREENING 2020 HPV/Cotest () 2020 PAP SMEAR 2020 COVID-19 Vaccine (3 - season) 2023, 09/17/2020 INFLUENZA VACCINE (#1) 2024 05/25/2020, 2018 Medical Devices Implanted Type Area Blower Operator Device Identifier Shelf Expiration Date Model / Serial / Lot Barrier Interceed Adh 3x4in 4350 - [id number] Implanted:Qt y: 1 on 02/04/2024 by Rahul Kilgore MD at [facility] Adhesion Barrier N/A: Pelvis [employer] [id number] 04/26/2028 [id number] / / [id number] Barrier Interceed Adh 3x4in 4350 - [id number] Implanted:Qt y: 1 on 02/04/2024 by Rahul Kilgore MD at [facility] Adhesion Barrier N/A: Pelvis [employer] [id number] 04/26/2028 [id number] / / [id number] Insurance [facility] OPEN ACCESS HMO RX [employer] Advance Directives For more information, please contact: [phone] * Full Code (Latest Code Status on File) Date Activated Date Inactivated Comments 02/04/2024 11:42 AM 02/04/2024 4:01 PM * Full Code Date Activated Date Inactivated Comments 02/04/2024 9:22 AM 02/04/2024 11:42 AM
--- OUTSIDE RECORDS SUMMARY | 2024-11-16 03:52 | XMS_ITS | Clinical Summary ---
Author Organization [facility] Address [address] [place] [id number] Care Team Providers Care Tool Design Draftsperson Name Role Phone Brent Rubio MD Primary Care Provider Unav ailable Allergies Active Allergy Reactions Criticality Noted Date Comments [place] Oil Anaphylaxis High 02/09/2022 Cefdinir Diarrhea,Hives,Other (see comment),Rash,Unknown High 02/27/2020 Escitalopram Hives,Other (see comment),Unknown High 02/09/2022 Morphine Anxiety,Other (see comment) Low 01/27/2023 Combative Prochlorperazine Hives,Other (see comment) Medium 06/27/2020 Reaction: HIVES, Reaction: HIVES, Reaction: HIVES, Reaction: HIVES, Tape Rash Low 01/27/2024 Tree Extract Anaphylaxis High 12/11/2021 Medications No known medications Social History Tobacco Use Types Packs/Day Years Used Date Smoking Tobacco: Never Assessed Comments No Sex and Gender Information Value Date Recorded Sex Assigned at Female 06/20/2024 9:14 PM NEWS CLIPPING CUTTER Legal Sex Female 8:21 PM CDT Gender Identity Not on file Sexual Orientation Not on file Last Filed Vital Signs Vital Sign Reading Time Taken Comments Blood Pressure 106/58 06/21/2024 1:00 AM NEWS CLIPPING CUTTER Pulse 110 06/20/2024 9:05 PM NEWS CLIPPING CUTTER Temperature 37.3 C (99.2 F) 06/20/2024 9:05 PM NEWS CLIPPING CUTTER Respiratory Rate 18 06/20/2024 9:05 PM NEWS CLIPPING CUTTER Oxygen Saturation 94% 06/21/2024 1:00 AM NEWS CLIPPING CUTTER Inhaled Oxygen Concentration - - Weight 58.7 kg (129 lb 6.6 oz) 06/20/2024 9:05 P M NEWS CLIPPING CUTTER Height 162.6 cm (5' 4) 06/20/2024 9:05 PM NEWS CLIPPING CUTTER Body Mass Index 22.21 06/20/2024 9:05 PM NEWS CLIPPING CUTTER Plan of Treatment Health Maintenance Due Date [...] - 19+ 3-dose series) 2018 COVID-19 Vaccine (3 - 2023-2 5 season) 2023 10/08/2020, 09/17/2020 Meningococcal B Vaccine Aged Out No l onger eligible based on patient's age to complete this topic Meningococcal Vaccine Aged Out No pérez kerline eligible based on patient's age to complete this topic Pneumococcal Vaccine: Pediatrics (0 to 5 Years) and At-Risk Patients (6 to 49 Years) Aged Out No longer eligible b ased on patient's age to complete this topic RSV Immunizations Under 20 Months Aged Out No longer eligible b ased on patient's age to complete this topic Insurance Care Teams Tool Design Draftsperson Relationship Specialty Start Date End Date Brent Rubio MD PCP - General 01/04/16
--- OUTSIDE RECORDS SUMMARY | 2024-11-16 03:52 | XMS_ITS | Referral Summary ---
Author Organization [facility] Address [address] [place] [address] Care Team Providers Care Bottoming Room Supervisor Name Role Phone Jennifer Reyes Primary Care Provider [phone]- [phone] Encounters Date Type Department Care Team Description 10/11/2024 2:15 PM CDT Office Visit [facility] [address] [place] [address] Health 7th Floor [address] [place] [address] Sara Alcala MD Endometriosis (Primary Dx); Chronic pelvic pain in female from Last 3 Months Allergies Active Allergy Reactions Criticality Noted Date Comments Adhesive Rash Medium 01/27/2024 [place] Oil Anaphylaxis High 02/09/2022 Cefdinir Hives,Diarrhea Medium 02/27/2020 Escitalopram Hives Medium 02/09/2022 Morphine Agitation Low 01/27/2023 Combative Other Anaphylaxis High 12/11/2021 TREE EXTRACT Prochlorperazine Hives Medium 06/27/2020 Reaction: HIVES, Tree Nuts Anaphylaxis High 05/23/2018 Medications lamoTRIgine (LaMICtal) 100 mg tablet Take 1 tablet (100 mg total) by mouth nightly 1 Active ARIPiprazole (ABILIFY) 10 mg tablet TAKE 1 TABLET BY MOUTH EVERY DAY AT BEDTIME FOR 30 DA[address] (CYMBALTA) 30 mg capsule Take 1 capsule (30 mg total) by mouth daily 5 Active lamoTRIgine (LaMICtal) 200 mg tablet 5 Active etonogestreL (NEXPLANON) 68 mg implantIndications : Contraception by subdermal route Active methocarbamoL (ROBAXIN) 750 mg tabletIndications: Pelvic Pain Take 1 tablet (750 mg total) by mouth 3 (three) times a day Start taking at night, and then if tolerated, increase to 3x/day. 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 06/02/2022 Otorrhea of right ear 06/12/2021 Assessment & Plan (06/12/2021 10:35 AM HEALTH/SAFETY JOB TITLES): Advised no drops in ear Advised wearing cotton in ear when showering for the next week Advised adding 500mg tylenol q6h prn pain to current ibuprofen regimen x 3d Advised f/u if not improving or if worsening over the next week Otalgia, right 06/12/2021 Assessment & Plan (06/12/2021 10:35 AM HEALTH/SAFETY JOB TITLES): Advised no drops in ear Advised wearing cotton in ear when showering for the next week Advised adding 500mg tylenol q6h prn pain to current ibuprofen regimen x 3d Advised f/u if not improving or if worsening over the next week Dermatitis 06/12/2021 Assessment & Plan (06/12/2021 10:36 AM HEALTH/SAFETY JOB TITLES): Will add steroid cream bid x 7 days. She was advised f/u in the next week if not improving, sooner if worsening. Tobacco use 06/12/2021 Assessment & Plan (06/12/2021 10:35 AM HEALTH/SAFETY JOB TITLES): Encouraged continued attempts at smoking cessation, discussed that the wellbutrin may benefit these attempts Moderate episode of recurrent major depressive d isorder 06/12/2021 Assessment & Plan (06/12/2021 10:36 AM HEALTH/SAFETY JOB TITLES): Continue with care per psychiatry Endometriosis 06/12/2021 Assessment & Plan (06/12/2021 10:36 AM HEALTH/SAFETY JOB TITLES): Continue with care per chick sexer Psychogenic nonepileptic seizure 08/09/2020 Migraine without aura and wi thout status migrainosus, not intractable 04/23/2020 Episodes of decreased attentiveness 04/23/2020 Assessment & Plan (06/12/2021 10:36 AM HEALTH/SAFETY JOB TITLES): Continue with care per psychiatry Mild intermittent asthma 05/24/2018 Assessment & Plan (05/24/2018 4:45 AM HEALTH/SAFETY JOB TITLES): Present on admission, currently asymptomatic. -Albuterol PRN Multiple food allergies 05/24/2018 Assessment & Plan (05/24/2018 4:47 AM HEALTH/SAFETY JOB TITLES): Present on admission, currently asymptomatic. -Epinephrine 0.3mg IM PRN anaphylaxis Cervical pain (neck) 12/02/2016 Assessment & Plan (05/24/2018 4:47 AM HEALTH/SAFETY JOB TITLES): Present on admission. Given description as unilateral [...] Preservative Free, Intramuscular 05/25/2020,05/25/2018 Influenza, Unspecified 06/12/2021(Deferred: Christiaan ent Refused) Pfizer SARS-CoV-2 Monovalent Vaccination (12+ [...] money to get more. 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 Not on file Not on file Not on file Last Filed Vital Signs Vital Sign Reading Time Taken Comments Blood Pressure 115/70 10/11/2024 2:18 PM CDT Pulse 82 01/27/2023 2:59 PM CDT Temperature 37.1 C (98.8 F) 01/27/2023 2:59 PM CDT Respiratory Rate 16 01/27/2023 2:59 PM CDT Oxygen Saturation 99% 06/02/2022 10: 15 AM HEALTH/SAFETY JOB TITLES Inhaled Oxygen Concentration - - Weight 57.5 kg (126 lb 11.2 oz) 10/11/2024 2:18 PM CDT Height 162.6 cm (5' 4) 10/11/2024 2:18 PM CDT Body Mass Index 21.75 10/11/2024 2:18 PM CDT Plan of Treatment Not on file Insurance [employer] OPEN ACCESS CIGNA OPEN ACCESS AETNA [facility] [place] [address] [place] [address] OPEN ACCESS IDPA [employer] [facility] Advance Directives For more information, please contact: [phone] Documents on File Type Date Recorded Patient Gaming Host Expl anation ADVANCE DIRECTIVE 05/24/2018 12:50 AM * Full Code (Latest Code Status on File) Date Activated Date Inactivated Comments 06/27/2020 8:51 AM 06/30/2020 8:59 PM * Full Code Date Activated Date Inactivated Comments 05/24/2018 2:35 AM 05/25/2018 6:00 PM Care Teams Bottoming Room Supervisor Relationship Specialty Start Date End Date Jennifer Reyes PA PCP - General Haunted History Tour Guide 06/12/21
--- OUTSIDE RECORDS SUMMARY | 2024-11-16 03:52 | XMS_ITS | Clinical Summary ---
Author Organization [facility] Address [address] [place] [address] Care Team Providers Care License Inspector Name Role Phone Jennifer Reyes Primary Care Provider [phone]- [phone] Allergies Active Allergy Reactions Criticality Noted Date Comments Adhesive Rash Medium 01/27/2024 [place] Oil Anaphylaxis High 02/09/2022 Cefdinir Hives,Diarrhea Medium [...] 06/12/2021 Assessment & Plan (06/12/2021 10:35 AM SURGICAL DENTAL ASSISTANT): Advised no drops in ear Advised wearing cotton in ear when showering for the next week Advised adding 500mg tylenol q6h prn pain to current ibuprofen regimen x 3d Advised f/u if not improving or if worsening over the next week Otalgia, right 06/12/2021 Assessment & Plan (06/12/2021 10:35 AM SURGICAL DENTAL ASSISTANT): Advised no drops in ear Advised wearing cotton in ear when showering for the next week Advised adding 500mg tylenol q6h prn pain to current ibuprofen regimen x 3d Advised f/u if not improving or if worsening over the next week Dermatitis 06/12/2021 Assessment & Plan (06/12/2021 10:36 AM SURGICAL DENTAL ASSISTANT): Will add steroid cream bid x 7 days. She was advised f/u in the next week if not improving, sooner if worsening. Tobacco use 06/12/2021 Assessment & Plan (06/12/2021 10:35 AM SURGICAL DENTAL ASSISTANT): Encouraged continued attempts at smoking cessation, discussed that the wellbutrin may benefit these attempts Moderate episode of recurrent major depressive d isorder 06/12/2021 Assessment & Plan (06/12/2021 10:36 AM SURGICAL DENTAL ASSISTANT): Continue with care per psychiatry Endometriosis 06/12/2021 Assessment & Plan (06/12/2021 10:36 AM SURGICAL DENTAL ASSISTANT): Continue with care per hair or beauty salon manager Psychogenic nonepileptic seizure 08/09/2020 Migraine without aura and wi thout status migrainosus, not intractable 04/23/2020 Episodes of decreased attentiveness 04/23/2020 Assessment & Plan (06/12/2021 10:36 AM SURGICAL DENTAL ASSISTANT): Continue with care per psychiatry Mild intermittent asthma 05/24/2018 Assessment & Plan (05/24/2018 4:45 AM SURGICAL DENTAL ASSISTANT): Present on admission, currently asymptomatic. -Albuterol PRN Multiple food allergies 05/24/2018 Assessment & Plan (05/24/2018 4:47 AM SURGICAL DENTAL ASSISTANT): Present on admission, currently asymptomatic. -Epinephrine 0.3mg IM PRN anaphylaxis Cervical pain (neck) 12/02/2016 Assessment & Plan (05/24/2018 4:47 AM SURGICAL DENTAL ASSISTANT): Present on admission. 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 on file Not on file Not on file Obstetrics History Para Term AB IAB SAB Ectopic Multiple Livin g Live Births 0 0 0 0 0 0 0 0 0 0 0 Last Filed Vital Signs Vital Sign Reading Time Taken Comments Blood Pressure 115/70 10/11/2024 2:18 PM CDT Pulse 82 01/27/2023 2:59 PM CDT Temperature 37.1 C (98.8 F) 01/27/2023 2:59 PM CDT Respiratory Rate 16 01/27/2023 2:59 PM CDT Oxygen Saturation 99% 06/02/2022 10: 15 AM SURGICAL DENTAL ASSISTANT Inhaled Oxygen Concentration - - Weight 57.5 kg (126 lb 11.2 oz) 10/11/2024 2:18 PM CDT Height 162.6 cm (5' 4) 10/11/2024 2:18 PM CDT Body Mass Index 21.75 10/11/2024 2:18 PM CDT Plan of Treatment Health Maintenance [...] Depression Screening 06/12/2022 06/12/2021 Covid-19 Vaccine ( - season) 2023, 09/17/2020 Influenza Vaccine (#1) 2024 05/25/2020, 2018 Insurance CIGNA OPEN ACCESS CIGNA OPEN ACCESS AETNA [facility] [place] [address] [place] [address] OPEN ACCESS IDPA [facility] Advance Directives For more information, please contact: [phone] Documents on File Type Date Recorded Patient Cartoon Artist Expl anation ADVANCE DIRECTIVE 05/24/2018 12:50 AM * Full Code (Latest Code Status on File) Date Activated Date Inactivated Comments 06/27/2020 8:51 AM 06/30/2020 8:59 PM * Full Code Date Activated Date Inactivated Comments 05/24/2018 2:35 AM 05/25/2018 6:00 PM Care Teams License Inspector Relationship Specialty Start Date End Date Jennifer Reyes PA PCP - General Electrical Manufacturing Technician 06/12/21
--- OUTSIDE RECORDS SUMMARY | 2024-11-16 03:52 | XMS_ITS | Clinical Summary ---
Author Organization [facility] Address [address] [place] [address] Care Team Providers Care Toaster Element Repairer Name Role Phone Unavailable Primary Care Provider Unavailabl e Social History Tobacco Use Types Packs/Day Years Used Date Smoking Tobacco: Never Assessed Comments Unknown Sex and Gender Information Value Date Recorded Sex Assigned at Not on file Legal Sex Female 1:46 PM FLY SETTER Gender Identity Not on file Sexual Orientation [...]
--- OUTSIDE RECORDS SUMMARY | 2024-11-16 03:53 | XMS_ITS | Patient Health Record ---
Author Organization [facility] [employer] Address [address] [place] [address] Care Team Providers Care Senior Consulting Manager Name Role Phone Herlinda Arriola Unavailable [phone] Allergies Allergen (clinical drug ingredient) Drug/Non Drug [...] MG 1 tablet Orally three times a day; Duration: 90 days As needed Active lamoTRIgine 200 MG 1 tablet Oral Once a day; Duration: 90 days Active ARIPiprazole 10 MG 1 tablet Oral Once a day; Duration: 90 days Active DULoxetine HCl 30 MG 1 capsule Orally On ce a day; Duration: 30 day(s) 08/23/2024 Active Immunizations Vaccine Route Administration Date Status Comme nts Pfizer Biontech Covid-19 Vac cine 2nd dose Unknown 09/17/2020 Administered Pfizer Biontech Covid-19 Vac cine 2nd dose Unknown 10/08/2020 Administered Novel [id number]-[id number], preservative free Unknown 05/25/2020 Administered Social History [...] NoDo you have a medical power of attorney general?: NoPublic Health and TravelHave you been to [...] Problem Bipolar affective disorder, currently depressed, mild (411492440) Bipolar disorder, current episode depressed, mild (F31.31) 08/21/19 24 Active confirmed Problem Generalized anxiety disorder (46806907) Generalized anxiety disorder (F41.1) 08/21/19 24 Active confirmed Problem Posttraumatic stress disorder (43701868) Post-traumatic stress disorder, chronic (F43.12) 08/21/19 24 Active confirmed Problem Insomnia disorder related to another mental disorder (44562187) Insomnia due to other mental disorder (F51.05) 08/21/19 Active confirmed Problem Screening for cardiovascular system disease (047728187) Encounter for screening for cardiovascular disorders (Z13.6) Active confirmed Problem Long-term current use of drug therapy (837607523) Other intermediate frame tender (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 (Z79.899) 08/21/19 Active confirmed Problem Depression Screening (780702089) Encounter for screening for depression (Z13.31) Active confirmed Problem ADHD (attention deficit hyperactivity disorder), combined type (F90.2) Active confirmed Vital Signs Heart Rate 67 /min 08/23/2024 Respiratory Rate 18 /min 01/11/2024 Blood pressure diastolic 72 mm Hg 08/23/2024 Height-cm 162.56 cm 08/23/2024 Weight-kg 58.97 kg 08/23/2024 Height 64.00 in 08/23/2024 Blood pressure systolic 108 mm Hg 08/23/2024 Weight 130 lbs 08/23/2024 BMI 22.31 kg/m2 08/23/2024 Encounters Encounter Location Date Provider Diagnosis [facility] [address] [facility] [address] [address] 01/11/2024 Herlinda Arriola Bipolar disorder, current episode depressed, mild F31.31 ; Generalized anxiety disorder F41.1 ; Insomnia due to other mental disorder F51.05 ; Post-traumatic stress disorder, chronic F43.12 and Other intermediate frame tender (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 Z79.899 [facility] [address] [facility] [address] [address] 02/01/2024 Herlinda Arriola Bipolar disorder, current episode depressed, mild F31.31 ; Generalized anxiety disorder F41.1 ; Insomnia due to other mental disorder F51.05 ; Post-traumatic stress disorder, chronic F43.12 and Other intermediate frame tender (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 Z79.899 [facility] [address] [facility] [address] [address] 02/29/2024 Herlinda Arriola Bipolar disorder, current episode depressed, mild F31.31 ; Generalized anxiety disorder F41.1 ; Insomnia due to other mental disorder F51.05 ; Post-traumatic stress disorder, chronic F43.12 and Other care home (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 Z79.899 [facility] [address] [place] [address] 04/14/2024 Herlinda Flako Bipolar disorder, current episode depressed, mild F31.31 ; Generalized anxiety disorder F41.1 ; Insomnia due to other mental disorder F51.05 ; Post-traumatic stress disorder, chronic F43.12 and Other care home (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 Z79.899 [facility] [employer] [facility] [address] [facility] [address] [place] [address] 05/16/2024 Herlinda Flako Bipolar disorder, current episode depressed, mild F31.31 ; Generalized anxiety disorder F41.1 ; Insomnia due to other mental disorder F51.05 ; Post-traumatic stress disorder, chronic F43.12 and Other care home (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 Z79.899 [facility] [employer] [facility] [address] [facility] [address] [facility] [address] [place] [address] 06/02/2024 Herlinda Flako Bipolar disorder, current episode depressed, mild F31.31 ; Generalized anxiety disorder F41.1 ; Insomnia due to other mental disorder F51.05 ; Post-traumatic stress disorder, chronic F43.12 and Other care home (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 Z79.899 [facility] [employer] [facility] [address] [facility] [address] [place] [address] 06/10/2024 Herlinda Arriola Bipolar disorder, current episode depressed, mild F31.31 ; Generalized anxiety disorder F41.1 ; Insomnia due to other mental disorder F51.05 ; Post-traumatic stress disorder, chronic F43.12 and Other care home (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 Z79.899 [facility] [employer] [facility] [address] [facility] [address] [place] [address] 06/24/2024 Herlinda Therel Bipolar disorder, current episode depressed, mild F31.31 ; Generalized anxiety disorder F41.1 ; Insomnia due to other mental disorder F51.05 ; Post-traumatic stress disorder, chronic F43.12 and Other intermediate frame tender (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 Z79.899 [facility] [employer] [facility] [address] [facility] [address] [place] [address] 08/08/2024 Herlinda Arriola Encounter for screen ing for depression Z13.31 ; Encounter for screening for cardiovascular disorders Z13.6 ; Bipolar disorder, current episode depressed, mild F31.31 ; Generalized anxiety disorder F41.1 ; Insomnia due to other mental disorder F51.05 ; Post-traumatic stress disorder, chronic F43.12 ; Other care home (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 Z79.899 and ADHD (attention deficit hyperactivity disorder), combined type F90.2 [facility] [employer] [facility] [address] [facility] [address] [address] 08/23/2024 Herlinda Arriola Encounter for screen ing for depression Z13.31 ; Encounter for screening for cardiovascular disorders Z13.6 ; Bipolar disorder, current episode depressed, mild F31.31 ; Generalized anxiety disorder F41.1 ; Insomnia due to other mental disorder F51.05 ; Post-traumatic stress disorder, chronic F43.12 ; Other intermediate frame tender (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 Z79.899 ; ADHD (attention deficit hyperactivity disorder), combined type F90.2 and Nicotine use Z72.0 [facility] [employer] [facility] [address] [facility] [address] [address] 09/16/2024 Herlinda [facility]QM[facility], [facility] [address] [address] 04/13/2024 Herlinda [facility]QM[facility], [facility] [address] [facility] [address] [address] 05/16/2024 Herlinda [facility]QMOS[facility], [facility] [address] [facility] [address] [address] 08/22/2024 Herlinda [facility]QM[facility], [facility] [address] [address] 08/22/2024 Herlinda [facility]QMOS[facility], [facility] [address] [facility] [address] [address] 08/22/2024 Herlinda Arriola Assessments Encounter Date Diagnosis (ICD Code) Assessment Notes Treatment Notes Treatment Clinical Notes Section Notes 01/11/2024 Bipolar disorder, current episode depressed, mild [...] rx 4-5 days continue rx jaleel 05/19 https://www.[employer]/bfpipgjp-wfs-uxhyl sog-nrwhcjvzi-hsav/ Lamotrigine 100 mg - patient reported depression [...] FND 2. Generalized anxiety disorder -continue medications customs import specialist PRESCRIBES Xanax - educated to take [...] and depression - schedule therapy Jose M Mackey 20 mg daily - monitor for jaleel and hypomania 3. Insomnia disorder related to another mental disorder -stable 4. Chronic post-traumatic stress disorder -therapy 5. Long-term drug therapy - 08/23/2024 Encounter for screening for depression (ICD-10 - Z13.31) Learning About Depression Screening material was published 1. Bipolar I disorder, most recent episode depression - educated to take rx as prescribed Abilify 10 mg at bedtime continue rx and educated on complaince rx jaleel 05/19 https://www.[employer]/kktvtzht-yuu-myamz fin-acfmlklgu-lsec/ Lamotrigine 200 mg - schedule weekly appointment [...] FND 2. Generalized anxiety disorder -continue medications customs import specialist PRESCRIBES Xanax - educated to take [...] rx . Long-term drug therapy - 08/08/2024 Encounter for screening for depression (ICD-10 - Z13.31) Learning About Depression Screening material was published 1. Bipolar I disorder, most recent episode depression - educated to take rx as prescribed Abilify 10 mg at bedtime continue rx and educated on complaince rx jaleel 05/19 https://www.[employer]/rkcpexpp-nlq-hznew dza-iphhyfvbg-svdy/ Lamotrigine 200 mg - patient reported depression [...] FND 2. Generalized anxiety disorder -continue medications customs import specialist PRESCRIBES Xanax - educated to take [...] am . Long-term drug therapy - 06/24/2024 Bipolar disorder, [...] rx jaleel 05/19 no refill needed today https://www.[employer] .[employer]/nwucsllt-bnr-akggh qjy-wnzawzrnm-ixqx/ Lamotrigine 200 mg - patient reported depression [...] FND 2. Generalized anxiety disorder -continue medications customs import specialist PRESCRIBES Xanax - educated to take [...] and educated on complaince rx jaleel 05/19 https://www.[employer]/wbqyxtrw-akq-vsunw ouf-mvrmvrcdq-gqlw/ Lamotrigine 200 mg - patient reported depression [...] FND 2. Generalized anxiety disorder -continue medications customs import specialist PRESCRIBES Xanax - educated to take [...] and educated on complaince rx jaleel 05/19 https://www.[employer]/bizwnoew-xmv-wxdhh suj-usluaclpt-poso/ Lamotrigine 200 mg - patient reported depression [...] FND 2. Generalized anxiety disorder -continue medications customs import specialist PRESCRIBES Xanax - educated to take [...] and educated on complaince rx jaleel 05/19 https://www.[employer]/jthhsdkk-xyy-gqyhb iok-nudvchlcp-rekp/ Increase Lamotrigine 200 mg - patient reported [...] FND 2. Generalized anxiety disorder -continue medications customs import specialist PRESCRIBES Xanax - educated to take [...] and educated on complaince rx jaleel 05/19 https://www.[employer] .[employer] Media/njzkoxba-feo-kbrqw xtj-vrksjzyxy-qttw/ Lamotrigine 100 mg - patient reported depression [...] FND 2. Generalized anxiety disorder -continue medications customs import specialist PRESCRIBES Xanax - educated to take [...] and educated on complaince rx jaleel 05/19 https://www.[employer]/cmqvzzdo-kvc-pysfi lnu-hacppscwc-hlln/ Lamotrigine 100 mg - patient reported depression [...] FND 2. Generalized anxiety disorder -continue medications customs import specialist PRESCRIBES Xanax - educated to take [...] and educated on complaince rx jaleel 05/19 https://www.[employer]/iewdipas-ale-aelzb tfp-fvhcquajl-wbsv/ Increase Lamotrigine 150 mg - patient reported [...] FND 2. Generalized anxiety disorder -continue medications customs import specialist PRESCRIBES Xanax - educated to take [...] and educated on complaince rx jaleel 05/19 https://www.[employer]/tgjdqple-wwl-onzfv viq-ttwqdfsdt-vgvp/ Increase Lamotrigine 150 mg - patient reported [...] FND 2. Generalized anxiety disorder -continue medications customs import specialist PRESCRIBES Xanax - educated to take [...] and educated on complaince rx jaleel 05/19 https://www.[employer] .[employer] Media/pvhbajqw-ikr-zljea inj-grqyoezmt-cvlb/ Lamotrigine 100 mg - patient reported depression [...] FND 2. Generalized anxiety disorder -continue medications customs import specialist PRESCRIBES Xanax - educated to take [...] and educated on complaince rx jaleel 05/19 https://www.[employer]/psevnhyy-hpq-iomtl gkl-uczrhwtvg-jetg/ Lamotrigine 100 mg - patient reported depression mild Patient reprted been taking Lamotrigine 100 mg last week and improved mood , did not decrease to 50 mg last visit educated on Lamotrigine and watch for rash Lamotriginpedromotrigine has a serious rashes requiring hospitalization and [...] FND 2. Generalized anxiety disorder -continue medications customs import specialist PRESCRIBES Xanax - educated to take [...] and educated on complaince rx jaleel 05/19 https://www.[employer]/sfpgorfr-uki-gpqdl wek-qjmlrposr-gpsb/ Increase Lamotrigine 200 mg - patient reported [...] FND 2. Generalized anxiety disorder -continue medications customs import specialist PRESCRIBES Xanax - educated to take [...] and educated on complaince rx jaleel 05/19 https://www.[employer]/dihzhfim-exn-loltg wgy-gkzkjeola-gcim/ Lamotrigine 200 mg - patient reported depression [...] FND 2. Generalized anxiety disorder -continue medications customs import specialist PRESCRIBES Xanax - educated to take [...] and educated on complaince rx jaleel 05/19 https://www.[employer]/wuludfey-lfo-dsdsy wns-pblmmyyew-gtmf/ Lamotrigine 200 mg - patient reported depression [...] FND 2. Generalized anxiety disorder -continue medications customs import specialist PRESCRIBES Xanax - educated to take [...] disorder -therapy 5. Long-term drug therapy - 06/24/2024 Generalized [...] rx jaleel 05/19 no refill needed today https://www[employer] .[employer] Media/cpappzlk-fwx-hzfxx mws-zvqqlnjnq-mccl/ Lamotrigine 200 mg - patient reported depression [...] FND 2. Generalized anxiety disorder -continue medications customs import specialist PRESCRIBES Xanax - educated to take [...] and educated on complaince rx jaleel 05/19 https://www.[employer] .com/eosfhszm-ksp-qulqw kza-qvgmlygzr-dlll/ Lamotrigine 200 mg - patient reported depression [...] FND 2. Generalized anxiety disorder -continue medications customs import specialist PRESCRIBES Xanax - educated to take [...] am . Long-term drug therapy - 08/23/2024 Encounter for screening for cardiovascular disorders (ICD-10 - Z13.6) 1. Bipolar I disorder, most recent episode depression - educated to take rx as prescribed Abilify 10 mg at bedtime continue rx and educated on complaince rx jaleel 05/19 https://www.[employer]/jrbrvdel-ijz-cuirb zsw-idqenksgm-iqng/ Lamotrigine 200 mg - schedule weekly appointment [...] FND 2. Generalized anxiety disorder -continue medications customs import specialist PRESCRIBES Xanax - educated to take [...] on rx . Long-term drug therapy - 01/11/2024 Generalized anxiety [...] rx 4-5 days continue rx jaleel 05/19 https://www.[employer]/zeaekrsl-kfr-ebftp hby-nioedaaom-simq/ Lamotrigine 100 mg - patient reported depression [...] FND 2. Generalized anxiety disorder -continue medications customs import specialist PRESCRIBES Xanax - educated to take [...] -therapy 5. Long-term drug therapy - 08/23/2024 Bipolar disorder, [...] and educated on complaince rx jaleel 05/19 https://www.[employer]/lxgkwjqh-vwe-eweml vsk-daewikjkb-bhfb/ Lamotrigine 200 mg - schedule weekly appointment [...] FND 2. Generalized anxiety disorder -continue medications customs import specialist PRESCRIBES Xanax - educated to take [...] rx . Long-term drug therapy - 08/08/2024 Bipolar disorder, [...] and educated on complaince rx jaleel 05/19 https://www.[employer] .[employer] Media/rnskopur-ynh-jcyar agh-obyqentnr-atyh/ Lamotrigine 200 mg - patient reported depression [...] FND 2. Generalized anxiety disorder -continue medications customs import specialist PRESCRIBES Xanax - educated to take [...] and educated on complaince rx jaleel 05/19 https://www.[employer]/aysjsbhz-tqp-yovid kon-fgwkmeptm-yxej/ Lamotrigine 200 mg - patient reported depression [...] FND 2. Generalized anxiety disorder -continue medications customs import specialist PRESCRIBES Xanax - educated to take [...] rx jaleel 05/19 no refill needed today https://www.[employer]/mjgipogc-ykz-mztdn rwh-mobslysoj-fdet/ Lamotrigine 200 mg - patient reported depression [...] FND 2. Generalized anxiety disorder -continue medications customs import specialist PRESCRIBES Xanax - educated to take [...] and educated on complaince rx jaleel 05/19 https://www.[employer]/tcfsoebc-bbr-mtmjq cvz-jkkbensmi-qgxu/ Lamotrigine 200 mg - patient reported depression [...] FND 2. Generalized anxiety disorder -continue medications customs import specialist PRESCRIBES Xanax - educated to take [...] and educated on complaince rx jaleel 05/19 https://www.[employer]/kzxnztsz-say-ihajx riv-posyllnvp-lrjz/ Lamotrigine 200 mg - patient reported depression [...] FND 2. Generalized anxiety disorder -continue medications customs import specialist PRESCRIBES Xanax - educated to take [...] and educated on complaince rx jaleel 05/19 https://www.[employer]/oytbojdv-riw-riqol qcn-pzyeuwyha-lhak/ Increase Lamotrigine 200 mg - patient reported [...] FND 2. Generalized anxiety disorder -continue medications customs import specialist PRESCRIBES Xanax - educated to take [...] and educated on complaince rx jaleel 05/19 https://www.[employer]/rjfcqlia-yxh-drhbo aog-yzbaqhynt-tlxf/ Lamotrigine 100 mg - patient reported depression [...] FND 2. Generalized anxiety disorder -continue medications customs import specialist PRESCRIBES Xanax - educated to take [...] rx 4-5 days continue rx jaleel 05/19 https://www.[employer] .[employer] Media/adydzeak-xlp-wgctj pzk-vnfrpcoca-lhys/ Lamotrigine 100 mg - patient reported depression [...] FND 2. Generalized anxiety disorder -continue medications customs import specialist PRESCRIBES Xanax - educated to take [...] and educated on complaince rx jaleel 05/19 https://www.[employer] .[employer] Media/esccgjqi-avv-qapwi wwy-nojmmugpg-yxjw/ Lamotrigine 100 mg - patient reported depression [...] FND 2. Generalized anxiety disorder -continue medications customs import specialist PRESCRIBES Xanax - educated to take [...] and educated on complaince rx jaleel 05/19 https://www.[employer]/cdufqfge-tlt-wcgqr ohv-goytruphd-nifo/ Increase Lamotrigine 150 mg - patient reported [...] FND 2. Generalized anxiety disorder -continue medications customs import specialist PRESCRIBES Xanax - educated to take [...] and educated on complaince rx jaleel 05/19 https://www.[employer]/kiemhmtr-pia-tyarg ain-pcvhfjuqt-tfrj/ Increase Lamotrigine 150 mg - patient reported [...] FND 2. Generalized anxiety disorder -continue medications customs import specialist PRESCRIBES Xanax - educated to take [...] and educated on complaince rx jaleel 05/19 https://www.[employer]/bnrddfjs-hyz-kiyjm liv-wuucxwfvs-jxoo/ Lamotrigine 100 mg - patient reported depression [...] FND 2. Generalized anxiety disorder -continue medications customs import specialist PRESCRIBES Xanax - educated to take [...] and educated on complaince rx jaleel 05/19 https://www.[employer]/zakbqmwr-uzr-hemnt tws-hsijbolsp-qaev/ Lamotrigine 100 mg - patient reported depression [...] FND 2. Generalized anxiety disorder -continue medications customs import specialist PRESCRIBES Xanax - educated to take [...] panic and depression - schedule therapy Kavitha- nylat requested to stop Prozac 20 mg daily [...] and educated on complaince rx jaleel 05/19 https://www.[employer]/zxftztvq-kmc-eukkp leg-hewqbyfxs-fhuz/ Increase Lamotrigine 200 mg - patient reported [...] FND 2. Generalized anxiety disorder -continue medications customs import specialist PRESCRIBES Xanax - educated to take [...] and educated on complaince rx jaleel 05/19 https://www.[employer]/eedepgfm-puj-wmzuj urc-begturaqy-kuen/ Lamotrigine 200 mg - patient reported depression [...] FND 2. Generalized anxiety disorder -continue medications customs import specialist PRESCRIBES Xanax - educated to take [...] and educated on complaince rx jaleel 05/19 https://www.[employer]/aqjqtcyo-ydb-haiiq mqw-ayfzbacel-chfe/ Lamotrigine 200 mg - patient reported depression [...] FND 2. Generalized anxiety disorder -continue medications customs import specialist PRESCRIBES Xanax - educated to take [...] disorder -therapy 5. Long-term drug therapy - 06/24/2024 Post-traumatic stress disorder, chronic (ICD-10 - F43.12) Post-Traumatic Stress Disorder (PTSD): Care Instructions material was published, Post-Traumatic Stress Disorder (PTSD): Care Instructions material was published 1. Bipolar I disorder, most recent episode depression - educated to take rx as prescribed Abilify 10 mg at bedtime continue rx and educated on complaince rx jaleel 05/19 no refill needed today https://www.[employer]/coxgqpfj-yrb-yarvt euk-fcizauiwb-xiga/ Lamotrigine 200 mg - patient reported depression [...] FND 2. Generalized anxiety disorder -continue medications customs import specialist PRESCRIBES Xanax - educated to take [...] -therapy 5. Long-term drug therapy - 08/08/2024 Insomnia due to other mental disorder (ICD-10 - F51.05) 1. Bipolar I disorder, most recent episode depression - educated to take rx as prescribed Abilify 10 mg at bedtime continue rx and educated on complaince rx jaleel 05/19 https://www.[employer]/udoakzdf-hhi-ftiwk dgh-illoqieil-ofyc/ Lamotrigine 200 mg - patient reported depression [...] FND 2. Generalized anxiety disorder -continue medications customs import specialist PRESCRIBES Xanax - educated to take [...] am . Long-term drug therapy - 08/23/2024 Generalized anxiety [...] and educated on complaince rx jaleel 05/19 https://www.[employer]/sljghkrz-car-mopwi eqk-zvfxtteda-mtyt/ Lamotrigine 200 mg - schedule weekly appointment [...] FND 2. Generalized anxiety disorder -continue medications customs import specialist PRESCRIBES Xanax - educated to take [...] on rx . Long-term drug therapy - 01/11/2024 Post-traumatic stress disorder, chronic (ICD-10 - F43.12) Post-Traumatic Stress Disorder (PTSD): Care Instructions material was published, Post-Traumatic Stress Disorder (PTSD): Care Instructions material was published 1. Bipolar I disorder, most recent episode depression - educated to take rx as prescribed Abilify 10 mg at bedtime started 05/22/22- reported been off rx 4-5 days continue rx jaleel 05/19 https://www.[employer]/jmtvplsf-rae-ihbkw dfs-vlzagavss-jyvz/ Lamotrigine 100 mg - patient reported depression [...] FND 2. Generalized anxiety disorder -continue medications customs import specialist PRESCRIBES Xanax - educated to take [...] -therapy 5. 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 Bipolar I disorder, most recent episode depression - educated to take rx as prescribed Abilify 10 mg at bedtime continue rx and educated on complaince rx jaleel 05/19 https://www.[employer]/vkqgcxum-ylz-akmtw xtn-hwuvgxzhc-pxll/ Lamotrigine 200 mg - schedule weekly appointment [...] FND 2. Generalized anxiety disorder -continue medications customs import specialist PRESCRIBES Xanax - educated to take [...] rx . Long-term drug therapy - 08/08/2024 Post-traumatic stress [...] and educated on complaince rx jaleel 05/19 https://www[employer]/uemuamhv-nkv-sglnn rqv-nbzrhjxck-yvex/ Lamotrigine 200 mg - patient reported depression [...] FND 2. Generalized anxiety disorder -continue medications customs import specialist PRESCRIBES Xanax - educated to take [...] am . Long-term drug therapy - 06/24/2024 Other care home (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 (ICD-10 - Z79.899) Medication Refill: Care Instructions material was published, Medication Refill: Care Instructions material was published 1. Bipolar I disorder, most recent episode depression - educated to take rx as prescribed Abilify 10 mg at bedtime continue rx and educated on complaince rx jaleel 05/19 no refill needed today [email or web address]://[email or web address]/lzsijfdo-aal-sdraw rsi-xxtxfpyzk-kmcf/ Lamotrigine 200 mg - patient reported depression [...] FND 2. Generalized anxiety disorder -continue medications customs import specialist PRESCRIBES Xanax - educated to take [...] 5. Long-term drug therapy - 06/10/2024 Other care home (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 (ICD-10 - Z79.899) Medication Refill: Care Instructions material was published, Medication Refill: Care Instructions material was published 1. Bipolar I disorder, most recent episode depression - educated to take rx as prescribed Abilify 10 mg at bedtime continue rx and educated on complaince rx jaleel 05/19 https://www.Sandata/krematqs-wgu-xjfuw pbg-tmfoopcbw-qfov/ Lamotrigine 200 mg - patient reported depression [...] FND 2. Generalized anxiety disorder -continue medications customs import specialist PRESCRIBES Xanax - educated to take [...] 5. Long-term drug therapy - 06/02/2024 Other care home (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 (ICD-10 - Z79.899) Medication Refill: Care Instructions material was published, Medication Refill: Care Instructions material was published 1. Bipolar I disorder, most recent episode depression - educated to take rx as prescribed Abilify 10 mg at bedtime continue rx and educated on complaince rx jaleel 05/19 https://www.Sandata/stbxuugf-vwa-vslfg llg-ljcwimehi-hugw/ Lamotrigine 200 mg - patient reported depression [...] FND 2. Generalized anxiety disorder -continue medications customs import specialist PRESCRIBES Xanax - educated to take [...] 5. Long-term drug therapy - 05/16/2024 Other care home (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 (ICD-10 - Z79.899) Medication Refill: Care Instructions material was published, Medication Refill: Care Instructions material was published 1. Bipolar I disorder, most recent episode depression - educated to take rx as prescribed Abilify 10 mg at bedtime continue rx and educated on complaince rx jaleel 05/19 https://www.Sandata/grthesbn-wlt-cyuks qeo-fnxpljrgc-nttx/ Increase Lamotrigine 200 mg - patient reported [...] FND 2. Generalized anxiety disorder -continue medications customs import specialist PRESCRIBES Xanax - educated to take [...] 5. Long-term drug therapy - 02/29/2024 Other care home (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 (ICD-10 - Z79.899) Medication Refill: Care Instructions material was published, Medication Refill: Care Instructions material was published 1. Bipolar I disorder, most recent episode depression - educated to take rx as prescribed Abilify 10 mg at bedtime started 05/22/22- continue rx and educated on complaince rx jaleel 05/19 https://www.[email or web address]/syqbjphn-jzn-mquxg bnl-lsdnpdybc-sjkw/ Lamotrigine 100 mg - patient reported depression [...] FND 2. Generalized anxiety disorder -continue medications customs import specialist PRESCRIBES Xanax - educated to take [...] 5. Long-term drug therapy - 01/11/2024 Other intermediate frame tender (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 (ICD-10 - Z79.899) Medication Refill: Care Instructions material was published, Medication Refill: Care Instructions material was published 1. Bipolar I disorder, most recent episode depression - educated to take rx as prescribed Abilify 10 mg at bedtime started 05/22/22- reported been off rx 4-5 days continue rx jaleel 05/19 https://www.[employer] .[employer] Media/hxuffoxj-ezt-yyyjb hbv-zakndqkqw-crlm/ Lamotrigine 100 mg - patient reported depression [...] FND 2. Generalized anxiety disorder -continue medications customs import specialist PRESCRIBES Xanax - educated to take [...] 5. Long-term drug therapy - 02/01/2024 Other intermediate frame tender (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 (ICD-10 - Z79.899) Medication Refill: Care Instructions material was published, Medication Refill: Care Instructions material was published 1. Bipolar I disorder, most recent episode depression - educated to take rx as prescribed Abilify 10 mg at bedtime started 05/22/22- continue rx and educated on complaince rx jaleel 05/19 https://www.[employer] .[employer]59 Media/gihzoess-rct-tijuq rir-wnywnhexz-lvlf/ Lamotrigine 100 mg - patient reported depression [...] FND 2. Generalized anxiety disorder -continue medications customs import specialist PRESCRIBES Xanax - educated to take [...] 5. Long-term drug therapy - 04/14/2024 Other intermediate frame tender (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 (ICD-10 - Z79.899) Medication Refill: Care Instructions material was published, Medication Refill: Care Instructions material was published 1. Bipolar I disorder, most recent episode depression - educated to take rx as prescribed Abilify 10 mg at bedtime started 05/22/22- continue rx and educated on complaince rx jalele 05/19 https://www.Sandata/wxnkhuzz-gvx-ysrsc xns-ybvvctgsv-lndf/ Increase Lamotrigine 150 mg - patient reported depression increase educated on Lamotrigine and watch for rash Lamotriginpedromotrigine has a serious rashes requiring hospitalization and [...] FND 2. Generalized anxiety disorder -continue medications customs import specialist PRESCRIBES Xanax - educated to take [...] 5. Long-term drug therapy - 08/08/2024 Other intermediate frame tender (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 (ICD-10 - Z79.899) Medication Refill: Care Instructions material was published, Medication Refill: Care Instructions material was published, Medication Refill: Care Instructions material was published 1. Bipolar I disorder, most recent episode depression - educated to take rx as prescribed Abilify 10 mg at bedtime continue rx and educated on complaince rx jaleel 05/19 https://www.Sandata/fmfqesgz-gsz-smalj kbi-grvvpangq-nbnt/ Lamotrigine 200 mg - patient reported depression [...] FND 2. Generalized anxiety disorder -continue medications customs import specialist PRESCRIBES Xanax - educated to take [...] and educated on complaince rx jaleel 05/19 https://www.Sandata/pfreeeng-ths-acgnr xcw-fhnleneor-zzqq/ Lamotrigine 200 mg - schedule weekly appointment [...] FND 2. Generalized anxiety disorder -continue medications customs import specialist PRESCRIBES Xanax - educated to take [...] . Long-term drug therapy - 08/23/2024 Other care home (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 (ICD-10 - Z79.899) Medication Refill: Care Instructions material was published, Medication Refill: Care Instructions material was published, Medication Refill: Care Instructions material was published 1. Bipolar I disorder, most recent episode depression - educated to take rx as prescribed Abilify 10 mg at bedtime continue rx and educated on complaince rx jaleel 05/19 https://www.Sandata/qkntihnl-nxm-cnaaq ydj-rfnyztggb-itlx/ Lamotrigine 200 mg - schedule weekly appointment [...] FND 2. Generalized anxiety disorder -continue medications customs import specialist PRESCRIBES Xanax - educated to take [...] and educated on complaince rx jaleel 05/19 https://www.[employer] .[employer]59 Media/ieyokezv-rom-gupgd dyi-wzatmbfqa-ijnx/ Lamotrigine 200 mg - patient reported depression [...] FND 2. Generalized anxiety disorder -continue medications customs import specialist PRESCRIBES Xanax - educated to take [...] and educated on complaince rx jaleel 05/19 https://www.Sandata/wclocazx-qol-wyrln zdq-adotgfrtu-iiwo/ Lamotrigine 200 mg - schedule weekly appointment [...] FND 2. Generalized anxiety disorder -continue medications customs import specialist PRESCRIBES Xanax - educated to take [...] and educated on complaince rx jaleel 05/19 https://www.Sandata/yphmmspu-xrw-rdtfd ugl-zdmqtygbq-magx/ Lamotrigine 200 mg - schedule weekly appointment [...] FND 2. Generalized anxiety disorder -continue medications customs import specialist PRESCRIBES Xanax - educated to take as prescribed to help anxiety and panic hx Vistaril 10 mg- educated on rx Visatril 10 mg three times as needed for anxiety and panic- educated to take rx for anxiety discuss and educated on medication options add Cymbalta 30 mg daily for depression and anxiety patient reported caused passive SI thoughts 4/26/24 [...] on rx . Long-term drug therapy - 01/11/2024 Other Aripiprazole Oral Tablet 10 mg (ARIPIPRAZOLE - ORAL) material was published, Fluoxetine Oral Capsule (FLUOXETINE - ORAL) material was published 1. Bipolar I disorder, most recent episode depression - educated to take rx as prescribed Abilify 10 mg at bedtime started 05/22/22- reported been off rx 4-5 days continue rx jaleel 05/19 https://www.Sandata/gviijtme-apg-kvgoy wya-azzuwewfv-thmg/ Lamotrigine 100 mg - patient reported depression [...] FND 2. Generalized anxiety disorder -continue medications customs import specialist PRESCRIBES Xanax - educated to take [...] and educated on complaince rx jaleel 05/19 https://www.Sandata/ajcnhukh-cki-amdkq dfu-ocsjjfnea-jaxr/ Lamotrigine 200 mg - patient reported depression [...] FND 2. Generalized anxiety disorder -continue medications customs import specialist PRESCRIBES Xanax - educated to take [...] Insured Coverage Start Date Coverage End Date [employer] [address] [place] [address] [id number] TRAVIS MACHADO Child - Insured has Financial [...]
[2024-11-16 03:54] VITALS: BP 151/93; PULSE 92; RESP 20; TEMP 36.7; O2SAT 100
[2024-11-16 04:52] VITALS: BP 125/93; PULSE 87; RESP 13; TEMP 37.1; O2SAT 97
[2024-11-16 05:09] LABS: BEDSIDEPREGUCG Negative (Negative)
--- OUTSIDE RECORDS SUMMARY | 2024-11-16 05:14 | XMS_ITS | Clinical Summary ---
Author Organization [facility] Address [address] [place] [address] Care Team Providers Care Piercing Artist Name Role Phone Jennifer Reyes Primary Care Provider [phone]- [phone] Allergies Active Allergy Reactions Criticality Noted Date Comments Adhesive Rash Medium 01/27/2024 Hope Oil Anaphylaxis High 02/09/2022 Cefdinir Hives,Diarrhea Medium [...] 06/12/2021 Assessment & Plan (06/12/2021 10:35 AM TELECOMMUNICATIONS PROJECT MANAGER): Advised no drops in ear Advised wearing cotton in ear when showering for the next week Advised adding 500mg tylenol q6h prn pain to current ibuprofen regimen x 3d Advised f/u if not improving or if worsening over the next week Otalgia, right 06/12/2021 Assessment & Plan (06/12/2021 10:35 AM TELECOMMUNICATIONS PROJECT MANAGER): Advised no drops in ear Advised wearing cotton in ear when showering for the next week Advised adding 500mg tylenol q6h prn pain to current ibuprofen regimen x 3d Advised f/u if not improving or if worsening over the next week Dermatitis 06/12/2021 Assessment & Plan (06/12/2021 10:36 AM TELECOMMUNICATIONS PROJECT MANAGER): Will add steroid cream bid x 7 days. She was advised f/u in the next week if not improving, sooner if worsening. Tobacco use 06/12/2021 Assessment & Plan (06/12/2021 10:35 AM TELECOMMUNICATIONS PROJECT MANAGER): Encouraged continued attempts at smoking cessation, discussed that the wellbutrin may benefit these attempts Moderate episode of recurrent major depressive d isorder 06/12/2021 Assessment & Plan (06/12/2021 10:36 AM TELECOMMUNICATIONS PROJECT MANAGER): Continue with care per psychiatry Endometriosis 06/12/2021 Assessment & Plan (06/12/2021 10:36 AM TELECOMMUNICATIONS PROJECT MANAGER): Continue with care per senior developer Psychogenic nonepileptic seizure 08/09/2020 Migraine without aura and wi thout status migrainosus, not intractable 04/23/2020 Episodes of decreased attentiveness 04/23/2020 Assessment & Plan (06/12/2021 10:36 AM TELECOMMUNICATIONS PROJECT MANAGER): Continue with care per psychiatry Mild intermittent asthma 05/24/2018 Assessment & Plan (05/24/2018 4:45 AM TELECOMMUNICATIONS PROJECT MANAGER): Present on admission, currently asymptomatic. -Albuterol PRN Multiple food allergies 05/24/2018 Assessment & Plan (05/24/2018 4:47 AM TELECOMMUNICATIONS PROJECT MANAGER): Present on admission, currently asymptomatic. -Epinephrine 0.3mg IM PRN anaphylaxis Cervical pain (neck) 12/02/2016 Assessment & Plan (05/24/2018 4:47 AM TELECOMMUNICATIONS PROJECT MANAGER): Present on admission. Given description as [...] CDT Office Visit [facility] [address] [facility] [address] [address] [place] [address] Sara Alcala MD Endometriosis (Primary [...] on file Legal Sex Female 11:46 PM TELECOMMUNICATIONS PROJECT MANAGER Gender Identity Not on file Sexual [...] Oxygen Saturation 99% 06/02/2022 10: 15 AM TELECOMMUNICATIONS PROJECT MANAGER Inhaled Oxygen Concentration - - Weight 57.5 [...] CIGNA OPEN ACCESS CIGNA OPEN ACCESS AETNA [facility] [address] [place] [address] OPEN ACCESS IDPA [facility] Advance Directives For more information, please contact: [phone] Documents on File Type Date Recorded Patient Frame Feeder Expl anation ADVANCE DIRECTIVE 05/24/2018 12:50 AM * Full Code (Latest Code Status on File) Date Activated Date Inactivated Comments 06/27/2020 8:51 AM 06/30/2020 8:59 PM * Full Code Date Activated Date Inactivated Comments 05/24/2018 2:35 AM 05/25/2018 6:00 PM Care Teams Piercing Artist Relationship Specialty Start Date End Date Jennifer Reyes PA PCP - General Manager Appointment 06/12/21
--- OUTSIDE RECORDS SUMMARY | 2024-11-16 05:14 | XMS_ITS | Clinical Summary ---
Author Organization [facility] Address [address] [facility] [place] [address] Care Team Providers Care Prune Washer Name Role Phone Denise Dyson INTERIOR DESIGN FACULTY MEMBER-SALESPERSON HOSIERY Primary Care Provider + Source Comments [facility],non-owned Affiliates and Associated Physician Practices is amultiple site organization consisting of ambulatory clinics and hospital sitesin [place], [place] and [place]. This disclosure is being madepursuant to the Care Everywhere program and may not contain all information available regarding this patient. Last updated 18.[facility] Allergies Active Allergy Reactions Criticality Noted Date Comments Adhesive Sensitivity Rash Medium 01/27/2024 [place] Oil Anaphylaxis High 02/09/2022 Cefdinir Diarrhea,Other,Urtic ar [...] stress disorder) 09/01/2024 Bipolar affective disorder 12/24/2023 termite inspector current use of therapeutic drug 2023 Insomnia [...] & Plan: Continue with care per manager part Last Assessment & Plan: Continue with care per manager part Dermatitis 06/12/2021 02/03/2023 Overview (02/03/2023): Last Assessment [...] Description 09/01/2024 12:20 PM CDT Office Visit [facility] [address] [place] [phone] Denise Dyson, INTERIOR DESIGN FACULTY MEMBER-SALESPERSON HOSIERY Encounter for medical examination to establish care [...] Immunization Administration Dates Next Due INFLUENZA A [id number] VACCINE 05/25/2020 INFLUENZA VACCINE, QUADR. (F LUZONE; [...] on file Legal Sex Female 5:40 AM FINGERPRINT EXPERT Gender Identity Not on file Sexual Orientation [...] - 09/05/2024 11:07 PM CDT Performed at: [address] [id number] Compounding Scaler: Eloise Milian MD, Phone: [phone] Denise Dyson INTERIOR DESIGN FACULTY MEMBER-[facility] - MICROBIOLOGY ORDER TU Final Result Performing Organization Address [facility] [place] [facility]/ZIP Co de Phone Number [facility] INSURANCE BILL [address] [place] [address] * HIV-1 HIV-2 ANTIBODY + HIV P24 [...] - 09/03/2024 8:11 AM CDT Performed at: [address] [id number] Compounding Scaler: Kevin Dan PhD, Phone: [phone] Denise Dyson INTERIOR DESIGN FACULTY MEMBER-SALESPERSON HOSIERY LAB - CHEMISTRY ORDERABL ES Final Result Performing Organization Address [facility] [place] [facility] [place] [facility]/ZIP Co de Phone Number [facility] INSURANCE BILL [address] [place] [address] * TSH HI LOW REFLEX FREE T4 (09/02/2024 2:47 PM CDT) Pathologist [facility] TSH 1.850 0.450 - 4.500 uIU/mL [facility] INSURANCE BILL Blood BLOOD SPECIMEN / Unknown 09/02/2024 2:47 PM CDT 09/02/2024 Narrative [facility] INSURANCE BILL - 09/03/2024 8:11 AM CDT Performed at: - [facility] [id number] Compounding Scaler: Kevin Dan PhD, Phone: [phone] Denisesofya Dyson INTERIOR DESIGN FACULTY MEMBER-[facility] - CHEMISTRY ORDERABL ES Final Result Performing Organization Address [facility] [place] [facility] [place] [facility] Co de Phone Number [facility] INSURANCE BILL [address] [place] [address] * (ABNORMAL) VITAMIN D 25-HYDROXY (09/02/2024 2:47 PM CDT) Vitamin D, 25 Hydroxy 25.1(L) 30.0 - 100.0 ng/mL [facility] INSURANCE BILL Comment: Vitamin D deficiency has been defined by the [place] of Medicine and an Endocrine Society practice guideline as a level of serum 25-OH vitamin D less than 20 ng/mL (1,2). The Endocrine Society went on to further define vitamin D insufficiency as a level between 21 and 29 ng/mL (2). 1. IOM ([place] of Medicine). 2010. Dietary reference intakes for [...] 09/03/2024 7:09 AM CDT Performed at: - [facility] [id number] Compounding Scaler: Kevin Dan PhD, Phone: [phone] Denise Dyson INTERIOR DESIGN FACULTY MEMBER-SALESPERSON HOSIERY LAB - CHEMISTRY ORDERABL ES Final Result Performing Organization Address City/[facility] [place] [facility]/ZIP Co de Phone Number [facility] INSURANCE BILL [address] [place] [address] * CBC WITH DIFFERENTIAL (09/02/2024 2:47 PM [...] 7:09 AM CDT Performed at: 01 - [facility] [id number] Compounding Scaler: Kevin Dan PhD, Phone: [phone] us Denise Dyson INTERIOR DESIGN FACULTY MEMBER-SALESPERSON HOSIERY LAB - HEMATOLOGY ORDERAB LES Final Result [facility] INSURANCE BILL [address] [place] [address] * (ABNORMAL) COMPREHENSIVE METABOLIC PANEL (09/02/2024 2:47 [...] 8:11 AM CDT Performed at: 01 - [place] [id number] [place], [place] [id number] Compounding Scaler: Kevin Dan PhD, Phone: [phone] us Denise Dyson INTERIOR DESIGN FACULTY MEMBER-SALESPERSON HOSIERY LAB - CHEMISTRY ORDERABL ES Final Result [facility] INSURANCE BILL [address] [place] [address] * HEPATITIS C ANTIBODY (09/02/2024 2:47 PM [...] 09/03/2024 7:09 AM CDT Performed at: - [facility] [id number] Compounding Scaler: Kevin Dan PhD, Phone: [phone] Denise Dyson INTERIOR DESIGN FACULTY MEMBER-SALESPERSON HOSIERY LAB - CHEMISTRY ORDERABL ES Final Result Performing Organization Address [facility] [place] [facility] [place] [facility]/ZIP Co de Phone Number [facility] INS[facility] BILL [address] [place] [address] * VITAMIN B12 (09/02/2024 2:46 PM CDT) Vitamin B12 485 232 - 1,245 pg/mL [facility] INSURANCE BILL Blood BLOOD SPECIMEN / Unknown 09/02/2024 2:46 PM CDT 09/02/2024 Narrative [facility] INSURANCE BILL - 09/03/2024 8:11 AM CDT Performed at: [facility] [id number] Compounding Scaler: Kevin Dan PhD, Phone: [phone] Denise Dyson INTERIOR DESIGN FACULTY MEMBER-SALESPERSON HOSIERY LAB - CHEMISTRY ORDERABL ES Final Result Performing Organization Address City/[facility] [place] [facility]/ZIP Co de Phone Number [facility] INSURANCE BILL [address] [place] [address] from Last 3 Months Insurance CIGNA Care Teams Prune Washer Relationship Specialty Start Date End Date Denise Dyson, INTERIOR DESIGN FACULTY MEMBER-SALESPERSON HOSIERY [address] [facility] [address] [place] [id number] PCP - General Nurse Practitioner 03/25/23
--- OUTSIDE RECORDS SUMMARY | 2024-11-16 05:14 | XMS_ITS | Clinical Summary ---
Author Organization Address [address] [place] [address] Care Team Providers Care Sports Marketer Name Role Phone Unavailable Primary Care Provider Unavailabl e Social History Tobacco Use Types Packs/Day Years Used Date Smoking Tobacco: Never Assessed Comments Unknown Sex and Gender Information Value Date Recorded Sex Assigned at Not on file Legal Sex Female 1:46 PM SUPERVISOR IRRIGATION Gender Identity Not on file Sexual Orientation [...]
--- OUTSIDE RECORDS SUMMARY | 2024-11-16 05:14 | XMS_ITS | Clinical Summary ---
Author Organization [facility] Address [address] [place] [id number] Phone Care Team Providers Care Soft Mud Molder Name Role Phone Jennifer Reyes Primary Care Provider +1- [phone] Allergies Active Allergy Reactions Criticality Noted Date [...] Assessment & Plan: Continue with care per clinical research administrator Otalgia of right ear 06/12/2021 Overview (12/11/2021): [...] Insurance CIGNA [place]ICA[place] - [place] Care Teams Soft Mud Molder Relationship Specialty Start Date End Date Jennifer Reyes PA PCP - General Family Medicine 01/02/22
--- OUTSIDE RECORDS SUMMARY | 2024-11-16 05:14 | XMS_ITS | Clinical Summary ---
Author Organization [facility] Address [address] [place] [address] Phone Care Team Providers Care Director Of Software Development Name Role Phone Unavailable Primary Care [...] 05/25/2020, 2018 Medical Devices Implanted Type [facility] Orderly Device Identifier Shelf Expiration Date Model / Serial / Lot Barrier Interceed Adh 3x4in 4350 - [id number] Implanted:Qt y: 1 on 02/04/2024 by Rahul Kilgore MD at [facility] Adhesion Barrier N/A: Pelvis [employer] [id number] 04/26/2028 4350 / / [id number] Barrier Interceed Adh 3x4in 4350 - [id number] Implanted:Qt y: 1 on 02/04/2024 by Rahul Kilgore MD at [facility] Adhesion Barrier N/A: Pelvis [employer] [id number] 04/26/2028 [id number] / / [id number] Insurance [facility] OPEN ACCESS HMO RX [employer] Advance Directives For more information, please contact: [phone] * Full Code (Latest Code Status on File) Date Activated Date Inactivated Comments 02/04/2024 11:42 AM 02/04/2024 4:01 PM * Full Code Date Activated Date Inactivated Comments 02/04/2024 9:22 AM 02/04/2024 11:42 AM
--- OUTSIDE RECORDS SUMMARY | 2024-11-16 05:14 | XMS_ITS | Referral Summary ---
Author Organization [facility] osp[facility] Address [address] [place] [address] Care Team Providers Care Coding Tech Name Role Phone Jennifer Reyes Primary Care Provider [phone]- [phone] Encounters Date Type Department Care Team Description 10/11/2024 2:15 PM CDT Office Visit [facility] [address] [place] [address] Health 7th Floor [address] [place] [address] Sara Alcala MD Endometriosis (Primary Dx); Chronic pelvic pain in female from Last 3 Months Allergies Active Allergy Reactions Criticality Noted Date Comments Adhesive Rash Medium 01/27/2024 [place] Oil Anaphylaxis High 02/09/2022 Cefdinir Hives,Diarrhea Medium [...] 06/12/2021 Assessment & Plan (06/12/2021 10:35 AM AEROSOL SUPERVISOR): Advised no drops in ear Advised wearing cotton in ear when showering for the next week Advised adding 500mg tylenol q6h prn pain to current ibuprofen regimen x 3d Advised f/u if not improving or if worsening over the next week Otalgia, right 06/12/2021 Assessment & Plan (06/12/2021 10:35 AM AEROSOL SUPERVISOR): Advised no drops in ear Advised wearing cotton in ear when showering for the next week Advised adding 500mg tylenol q6h prn pain to current ibuprofen regimen x 3d Advised f/u if not improving or if worsening over the next week Dermatitis 06/12/2021 Assessment & Plan (06/12/2021 10:36 AM AEROSOL SUPERVISOR): Will add steroid cream bid x 7 days. She was advised f/u in the next week if not improving, sooner if worsening. Tobacco use 06/12/2021 Assessment & Plan (06/12/2021 10:35 AM AEROSOL SUPERVISOR): Encouraged continued attempts at smoking cessation, discussed that the wellbutrin may benefit these attempts Moderate episode of recurrent major depressive d isorder 06/12/2021 Assessment & Plan (06/12/2021 10:36 AM AEROSOL SUPERVISOR): Continue with care per psychiatry Endometriosis 06/12/2021 Assessment & Plan (06/12/2021 10:36 AM AEROSOL SUPERVISOR): Continue with care per superintendent fish hatchery Psychogenic nonepileptic seizure 08/09/2020 Migraine without aura and wi thout status migrainosus, not intractable 04/23/2020 Episodes of decreased attentiveness 04/23/2020 Assessment & Plan (06/12/2021 10:36 AM AEROSOL SUPERVISOR): Continue with care per psychiatry Mild intermittent asthma 05/24/2018 Assessment & Plan (05/24/2018 4:45 AM AEROSOL SUPERVISOR): Present on admission, currently asymptomatic. -Albuterol PRN Multiple food allergies 05/24/2018 Assessment & Plan (05/24/2018 4:47 AM AEROSOL SUPERVISOR): Present on admission, currently asymptomatic. -Epinephrine 0.3mg IM PRN anaphylaxis Cervical pain (neck) 12/02/2016 Assessment & Plan (05/24/2018 4:47 AM AEROSOL SUPERVISOR): Present on admission. Given description as [...] on file Legal Sex Female 11:46 PM AEROSOL SUPERVISOR Gender Identity Not on file Sexual [...] Oxygen Saturation 99% 06/02/2022 10: 15 AM AEROSOL SUPERVISOR Inhaled Oxygen Concentration - - Weight 57.5 kg (126 lb 11.2 oz) 10/11/2024 2:18 PM CDT Height 162.6 cm (5' 4) 10/11/2024 2:18 PM CDT Body Mass Index 21.75 10/11/2024 2:18 PM CDT Plan of Treatment Not on file Insurance [employer] OPEN ACCESS CIGNA OPEN ACCESS AETNA [facility] [place] [place] [address] OPEN ACCESS IDPA [employer] PLAN [facility] Advance Directives For more information, please contact: [phone] Documents on File Type Date Recorded Patient Carbon Furnace Operator Expl anation ADVANCE DIRECTIVE 05/24/2018 12:50 AM * Full Code (Latest Code Status on File) Date Activated Date Inactivated Comments 06/27/2020 8:51 AM 06/30/2020 8:59 PM * Full Code Date Activated Date Inactivated Comments 05/24/2018 2:35 AM 05/25/2018 6:00 PM Care Teams Coding Tech Relationship Specialty Start Date End Date Jennifer Reyes PA PCP - General Materials Coordinator 06/12/21
--- OUTSIDE RECORDS SUMMARY | 2024-11-16 05:14 | XMS_ITS | Clinical Summary ---
Author Organization [facility] Address [address] [place] [id number] Care Team Providers Care Pick Out Hand Name Role Phone Brent Rubio MD Primary Care Provider Unav ailable Allergies Active Allergy Reactions Criticality Noted Date Comments [place] Oil Anaphylaxis High 02/09/2022 Cefdinir Diarrhea,Hives,Other (see [...] Sex Assigned at Female 06/20/2024 9:14 PM SPRINKLING SYSTEM INSTALLER Legal Sex Female 8:21 PM CDT Gender Identity Not on file Sexual Orientation Not on file Last Filed Vital Signs Vital Sign Reading Time Taken Comments Blood Pressure 106/58 06/21/2024 1:00 AM SPRINKLING SYSTEM INSTALLER Pulse 110 06/20/2024 9:05 PM SPRINKLING SYSTEM INSTALLER Temperature 37.3 C (99.2 F) 06/20/2024 9:05 PM SPRINKLING SYSTEM INSTALLER Respiratory Rate 18 06/20/2024 9:05 PM SPRINKLING SYSTEM INSTALLER Oxygen Saturation 94% 06/21/2024 1:00 AM SPRINKLING SYSTEM INSTALLER Inhaled Oxygen Concentration - - Weight 58.7 kg (129 lb 6.6 oz) 06/20/2024 9:05 P M SPRINKLING SYSTEM INSTALLER Height 162.6 cm (5' 4) 06/20/2024 9:05 PM SPRINKLING SYSTEM INSTALLER Body Mass Index 22.21 06/20/2024 9:05 PM SPRINKLING SYSTEM INSTALLER Plan of Treatment Health Maintenance Due Date [...] to complete this topic Insurance Care Teams Pick Out Hand Relationship Specialty Start Date End Date Brent Rubio MD PCP - General 01/04/16
[2024-11-16 05:15] LABS: Hematocrit 41.0 % (37.0-47.0); Hemoglobin 13.8 g/dL (12.0-15.0); Immature Granulocyte Percent A 0.3 % (0-0.5); Lymphocytes Absolute Auto 0.86 K/mm3 (0.9-3.2); Mean Corpuscular HGB Conc 33.7 g/dl (32-36); Mean Corpuscular Hemoglobin 29.3 pg (26-34); Mean Corpuscular Volume 87.0 fl (80-100); Nucleated Red Blood Cells Absolute Auto 0.000 K/mm3 (0.0-0.012); Nucleated Red Blood Cells Perc 0.0 % (0.0-0.2); Platelet Count Result 253 k/mm3 (150-375); Red Blood Count 4.71 M/mm3 (4.2-5.4); White Blood Count 15.6 K/mm3 (4.5-10.0)
--- NOTE | 2024-11-16 05:16 | ED.NAVMDI ---
HPI - Nausea/Vomiting/Diarrhea General Chief complaint: Nausea/Vomiting/Diarrhea Stated complaint: n/v for 24 hours Time Seen by Provider: 11/16/24 04:55 History of Present Illness HPI Narrative: 24-year-old otherwise healthy female presenting to the emergency department with diffuse chills and nauseousness with vomiting. She states she has had some diarrhea as well. Symptoms going on for last 2 days. Was otherwise in her normal state of health, no fever, headache, vision changes, abdominal pain, back pain, urinary complaints. She states she feels very dehydrated. States that she is not able tolerate oral intake as she just vomits. Has tried some Zofran home without relief as she states she took it and vomited the Zofran up without having intake affect. Was otherwise in her normal state of health. Only recent medication changes that she had her Nexplanon removed and she started oral pills again. Denies urinary complaints, vaginal complaints or chance of . Related Data Home Medications ?Medication ?Instructions ?Recorded ?Confirmed ?Last Taken ?Type aripiprazole 10 mg tablet 10 mg PO HS 06/16/24 06/16/24 Unknown History lamotrigine 200 mg tablet 200 mg PO HS 06/16/24 06/16/24 Unknown History Allergies Allergy/AdvReac Type Severity Reaction Status Date / Time tree nut Allergy Severe Anaphylaxis Verified 11/16/24 03:51 morphine Allergy Mild Agitated Verified 11/16/24 03:51 cefdinir (From Omnicef) Allergy Hives Verified 11/16/24 03:51 elagolix (From [place]ilissa) AdvReac Migraine Verified 11/16/24 03:51 escitalopram (From Lexapro) AdvReac Itching Verified 11/16/24 03:51 Review of Systems Review of Systems: As reviewed above in HPI PMFSH Past Medical History Medical History History of suicide attempt Depression Endometriosis Asthma Pelvic pain Anxiety Surgical History Surgical History H/O laparoscopy Family History Family History Mother No pertinent past medical history Social History Social History Smoking status: Current some day smoker Tobacco type: e-cigarettes/vaping Alcohol intake: current Alcohol use details: 1-2/MONTH Substance use: current Substance use type: marijuana Other substance usage details: Daily Living arrangements: with family Additional living arrangements comments: MOM Gender identity (if verbalized by the patient): Female Spiritual care concerns: No Exam Narrative: GENERAL: [Well-appearing, well-nourished, and in no acute distress.] HEAD: [Normocephalic, atraumatic.] EYES: [PERRLA and EOMI.] ENT: Nares clear, no rhinorrhea or epistaxis. Mucous membranes moist. NECK: Supple. CHEST: [Clear to auscultation. No respiratory distress.] HEART: [Regular rate and rhythm]. No murmur heard. [Normal peripheral pulses.] ABDOMEN: [Soft, nondistended], [nontender], [No rigidity or guarding] EXTREMITIES: Normal range of motion. [No edema.] SKIN: Warm, dry, no rash. NEURO: [No focal deficits]. Alert and oriented [x3.] PSYCH: [Normal mood and affect.] Course Vital Signs Vital signs: Vital Signs Temperature 36.7 C 11/16/24 03:54 Pulse Rate 92 11/16/24 03:54 Respiratory Rate 20 11/16/24 03:54 Blood Pressure 151/93 H 11/16/24 03:54 Pulse Oximetry 100 11/16/24 03:54 Oxygen Delivery Room Air 11/16/24 03:54 Temperature 37.1 C 11/16/24 04:52 Pulse Rate 87 11/16/24 04:52 Respiratory Rate 13 11/16/24 04:52 Blood Pressure 125/93 H 11/16/24 04:52 Pulse Oximetry 97 11/16/24 04:52 Oxygen Delivery Room Air 11/16/24 04:52 MDM - Nausea/Vomiting/Diarrhea MDM Narrative Medical decision making narrative: 24-year-old otherwise healthy female presenting to the emergency department with diffuse chills and nauseousness with vomiting. She states she has had some diarrhea as well. Symptoms going on for last 2 days. Was otherwise in her normal state of health, no fever, headache, vision changes, abdominal pain, back pain, urinary complaints. She states she feels very dehydrated. States that she is not able tolerate oral intake as she just vomits. Has tried some Zofran home without relief as she states she took it and vomited the Zofran up without having intake affect. Was otherwise in her normal state of health. Only recent medication changes that she had her Nexplanon removed and she started oral pills again. Denies urinary complaints, vaginal complaints or chance of . Patient is hemodynamically stable with normal vital signs here afebrile without any hypoxia, tachypnea, tachycardia or blood pressure concerns. She has an unremarkable physical examination. She does appear slightly dehydrated with dry mucous membranes. Likely gastroenteritis given her symptomatology. Low suspicion other acute pathology given the lack of any pain or urinary symptoms. Could also be secondary to the estrogen and hormone changes with her changes in her Nexplanon to oral pills. Her job was concerned about COVID. Viral panel swabs obtained, CBC, CMP, urinalysis and lipase obtained. She was given D5 LR and Zofran and re-evaluated. Patient need additional antiemetics and responded well to Compazine diphenhydramine. She has a minor white count but no abdominal pain or tenderness on examination. No urinary complaints. Normal hemoglobin, normal platelets. Electrolytes were largely unremarkable. Normal renal function. LFTs mildly elevated but not severe. Likely viral etiology in nature causing gastroenteritis. Urinalysis shows moderate squames but no signs of significant infection. test negative. UDS positive for cannabinoids which could contribute to the symptoms. Viral panel negative. Patient felt much better after re-evaluation will be sent home with Compazine prescription as well as Toradol for symptom control. She will follow-up with her doctor and given return precautions. Medical Records Attestation: I reviewed the patient's medical records. Lab Data Attestation: I reviewed the patient's lab results. 11/16/24 05:03 11/16/24 05:03 Labs: Lab Results 11/16/24 11/16/24 11/16/24 Range/Units 05:03 05:07 06:06 WBC 15.6 H (4.5-10.0) K/mm3 RBC 4.71 (4.2-5.4) M/mm3 Hgb 13.8 (12.0-15.0) g/dL Hct 41.0 (37.0-47.0) % MCV 87.0 (80-100) fl MCH 29.3 (26-34) pg MCHC 33.7 (32-36) g/dl RDW 13.0 (11.5-14.5) % Plt Count 253 (150-375) k/mm3 MPV 11.3 H (7.4-10.4) fl Immature Gran % (Auto) 0.3 (0-0.5) % Neut % (Auto) 84.9 H (45.5-73.1) % Lymph % (Auto) 5.5 L (18.3-44.2) % [place] % (Auto) 9.1 H (2.6-8.5) % Eos % (Auto) 0.0 (0-4.4) % Baso % (Auto) 0.2 (0.2-1.2) % Lymph # (Auto) 0.86 L (0.9-3.2) K/mm3 [place] # (Auto) 1.4 H (0.1-0.6) K/mm3 Eos # (Auto) 0.0 (0-0.3) K/mm3 Baso # (Auto) 0.0 (0.0-0.1) K/mm3 Abs Immat Gran (auto) 0.05 H (0.00-0.031) K/mm3 Absolute Neuts (auto) 13.3 H (1.3-6.7) K/mm3 Absolute Nucleated RBC 0.000 (0.0-0.012) K/mm3 Nucleated RBC % 0.0 (0.0-0.2) % Sodium 138 (137-145) mmol/L Potassium 3.3 L (3.4-5.0) mmol/L Chloride 100 (98-107) mmol/L Carbon Dioxide 24 (22-30) mmol/L Anion Gap 14 H (4-12) mmol/L BUN 12 D (7-17) mg/dL Creatinine 0.66 L (0.7-1.0) mg/dL Estim Creat Clear Calc 96 ml/min Estimated GFR > 60 (59 - ) Glucose 109 (65-110) mg/dL Calcium 9.9 (8.4-10.2) mg/dL Total Bilirubin 0.8 (0.2-1.3) mg/dL AST 46 H (14-36) U/L ALT 47 H (6-35) U/L Alkaline Phosphatase 58 (38-126) U/L Total Protein 8.3 H (6.3-8.2) g/dL Albumin 5.1 (3.5-5.1) g/dL Lipase 73 (23-300) U/L Urine Color Dark yellow (Yellow) Urine Appearance Cloudy H (Clear) Urine pH 6.0 (5.0-9.0) Ur Specific [place] 1.029 (1.001-1.035) Urine Protein 3+ H (Negative) mg/dL Urine Glucose (UA) Trace H (Negative) mg/dL Urine Ketones 1+ H (Negative) mg/dL Ur Blood (Man) Negative (Negative) Urine Nitrate Negative (Negative) Urine Bilirubin Negative (Negative) Urine Urobilinogen 1.0 (<2.0) mg/dL Add Ur Microanalysis Reviewed Leukocyte Esterase Rfl Negative (Negative) HEBER/UL Urine RBC 0-2 (0-2) /hpf Urine WBC 6-10 H (0-3) /hpf Ur Squamous Epith Cells Moderate (Few) /hpf Urine Bacteria None seen /hpf Urine Casts 6-10 POC Urine HCG, Qual Negative (Negative) Urine Opiates Screen Negative (Negative) Urine Methadone Screen Negative (Negative) Ur Barbiturates Screen Negative (Negative) Ur Phencyclidine Scrn Negative (Negative) Ur Amphetamine Screen Negative (Negative) U Benzodiazepines Scrn Negative (Negative) Urine Cocaine Screen Negative (Negative) U Cannabinoids Screen Positive A (Negative) Influenza A (RT-PCR) Negative (Negative) Influenza B (RT-PCR) Negative (Negative) RSV (RT-PCR) Negative (Negative) SARS-CoV-2 RNA (RT-PCR) Negative (Negative) Discharge Plan Discharge Clinical Impression: Acute viral syndrome, Gastroenteritis Patient Disposition: Home Condition: Stable Instructions: Antibiotic Form Additional Instructions: Symptoms likely secondary to viral gastroenteritis. We will send you home with Compazine as well as Toradol for symptom control. Return with any emergent concerns. Follow-up with regular doctor. Maintain a bland diet and use electrolyte replacement solutions and water. Patient Language: Tongan Prescriptions: New prochlorperazine maleate [Compazine] 10 mg tablet 10 mg PO Q8H PRN (Reason: nausea and vomiting) Qty: 20 0RF ketorolac 10 mg tablet 10 mg PO Q8H PRN (Reason: pain) 5 Days Qty: 20 0RF Rx Instructions: maximum total duration of 5 days from all oral, intranasal, or parenteral formulations No Action aripiprazole 10 mg tablet 10 mg PO HS lamotrigine 200 mg tablet 200 mg PO HS hydrocodone-acetaminophen 5-325 mg tablet 1 tablet PO Q4H PRN (Reason: pain) Qty: 30 0RF Follow-up/Referrals: Kiel,Denise Rodríguez APRN [Primary Care Provider] - Time of Disposition: 06:55
[2024-11-16] MEDS: ONDANSETRON INJ 4 MG/2 ML VIAL IV PUSH (05:22)
[2024-11-16] MEDS: DEXTROSE 5%/LACTATED RINGERS 1,000 ML 1000 ML IV CONT (05:22)
[2024-11-16 05:37] LABS: Add Urine Microscopic? YES; Alanine Aminotransferase 47 U/L (6-35); Albumin Level 5.1 g/dL (3.5-5.1); Alkaline Phosphatase 58 U/L (38-126); Anion Gap 14 mmol/L (4-12); Appearance Urine Cloudy (Clear); Aspartate Amino Transferase 46 U/L (14-36); Bilirubin,Total 0.8 mg/dL (0.2-1.3); Blood Urea Nitrogen 12 mg/dL (7-17); Calcium 9.9 mg/dL (8.4-10.2); Carbon Dioxide 24 mmol/L (22-30); Chloride 100 mmol/L (98-107); Estimated CRCL calculation 96 ml/min; Estimated Glomerular Filt Rate > 60; Glucose 109 mg/dL (65-110); Glucose Urine UA Trace mg/dL (Negative); Leukocyte Esterase Ur Negative LEU/UL (Negative); Lipase 73 U/L (23-300); Need Manual Microscopic Reviewed; Nitrate Urine Negative (Negative); Potassium 3.3 mmol/L (3.4-5.0); Sodium 138 mmol/L (137-145); Specific Grav Ur 1.029 (1.001-1.035); Total Protein 8.3 g/dL (6.3-8.2)
[2024-11-16] MEDS: PROCHLORPERAZINE EDISYLATE 10 MG/2 ML VIAL IV PUSH (05:50)
[2024-11-16 06:44] LABS: Cannabinoid Screen Urine Positive (Negative)
[2024-11-16 06:46] LABS: Influenza A QL RT-PCR Negative (Negative); Influenza B QL RT-PCR Negative (Negative); RSV RNA, RT-PCR Negative (Negative); SARS-CoV-2 RNA PCR Negative (Negative)
== END 2024-11-16 07:10 | disposition home or self-care (01) ==
PROVIDERS: Emergency Provider Student in an Organized Health Care Education/Training Program; PCP Nurse Practitioner Family
DX: A08.4 Viral intestinal infection, unspecified (principal); Z20.822 Contact with and (suspected) exposure to COVID-19; J45.909 Unspecified asthma, uncomplicated; N80.9 Endometriosis, unspecified; F32.A Depression, unspecified; F41.9 Anxiety disorder, unspecified; F17.290 Nicotine dependence, other tobacco product, uncomplicated
CPT/HCPCS: 36415; 80053; 80307; 81001; 81025; 83690; 85025; 87637; 96361; 96374; 96375; 99284; J0780; J1200; J2405; J7121

== ENCOUNTER 2024-11-20 16:51 | Emergency (ER) | payer OTHER, SELFPAY ==
--- OUTSIDE RECORDS SUMMARY | 2024-11-20 16:53 | XMS_ITS | Referral Summary ---
Author Organization [facility] Address [address] [place] [address] Care Team Providers Care Code Clerk Name Role Phone Jennifer Reyes Primary Care Provider +1- [phone] Encounters Date Type Department Care Team Description 10/11/2024 2:15 PM CDT Office Visit [facility] [address] [place] [address] Health 7th Floor [address] [place] [address] Sara Alcala MD Endometriosis (Primary Dx); Chronic pelvic pain in female from Last 3 Months Allergies Active Allergy Reactions Criticality Noted Date Comments Adhesive Rash Medium 01/27/2024 [place] Oil Anaphylaxis High 02/09/2022 Cefdinir Hives,Diarrhea Medium [...] 06/12/2021 Assessment & Plan (06/12/2021 10:35 AM CHURN TENDER): Advised no drops in ear Advised wearing cotton in ear when showering for the next week Advised adding 500mg tylenol q6h prn pain to current ibuprofen regimen x 3d Advised f/u if not improving or if worsening over the next week Otalgia, right 06/12/2021 Assessment & Plan (06/12/2021 10:35 AM CHURN TENDER): Advised no drops in ear Advised wearing cotton in ear when showering for the next week Advised adding 500mg tylenol q6h prn pain to current ibuprofen regimen x 3d Advised f/u if not improving or if worsening over the next week Dermatitis 06/12/2021 Assessment & Plan (06/12/2021 10:36 AM CHURN TENDER): Will add steroid cream bid x 7 days. She was advised f/u in the next week if not improving, sooner if worsening. Tobacco use 06/12/2021 Assessment & Plan (06/12/2021 10:35 AM CHURN TENDER): Encouraged continued attempts at smoking cessation, discussed that the wellbutrin may benefit these attempts Moderate episode of recurrent major depressive d isorder 06/12/2021 Assessment & Plan (06/12/2021 10:36 AM CHURN TENDER): Continue with care per psychiatry Endometriosis 06/12/2021 Assessment & Plan (06/12/2021 10:36 AM CHURN TENDER): Continue with care per slipper maker Psychogenic nonepileptic seizure 08/09/2020 Migraine without aura and wi thout status migrainosus, not intractable 04/23/2020 Episodes of decreased attentiveness 04/23/2020 Assessment & Plan (06/12/2021 10:36 AM CHURN TENDER): Continue with care per psychiatry Mild intermittent asthma 05/24/2018 Assessment & Plan (05/24/2018 4:45 AM CHURN TENDER): Present on admission, currently asymptomatic. -Albuterol PRN Multiple food allergies 05/24/2018 Assessment & Plan (05/24/2018 4:47 AM CHURN TENDER): Present on admission, currently asymptomatic. -Epinephrine 0.3mg IM PRN anaphylaxis Cervical pain (neck) 12/02/2016 Assessment & Plan (05/24/2018 4:47 AM CHURN TENDER): Present on admission. Given description as unilateral [...] on file Legal Sex Female 11:46 PM CHURN TENDER Gender Identity Not on file Sexual [...] Oxygen Saturation 99% 06/02/2022 10: 15 AM CHURN TENDER Inhaled Oxygen Concentration - - Weight 57.5 kg (126 lb 11.2 oz) 10/11/2024 2:18 PM CDT Height 162.6 cm (5' 4) 10/11/2024 2:18 PM CDT Body Mass Index 21.75 10/11/2024 2:18 PM CDT Plan of Treatment Not on file Insurance [employer] [place] C[employer] OPEN ACCESS AETNA [facility] [place] [place] [address] OPEN ACCESS IDPA BLUE CROSS COMMUNITY HE[employer] PLAN [facility] Advance Directives For more information, please contact: [phone] Documents on File Type Date Recorded Patient Movie Theater Usher Expl anation ADVANCE DIRECTIVE 05/24/2018 12:50 AM * Full Code (Latest Code Status on File) Date Activated Date Inactivated Comments 06/27/2020 8:51 AM 06/30/2020 8:59 PM * Full Code Date Activated Date Inactivated Comments 05/24/2018 2:35 AM 05/25/2018 6:00 PM Care Teams Code Clerk Relationship Specialty Start Date End Date Jennifer Reyes PA PCP - General Final Inspector And Tester 06/12/21
--- OUTSIDE RECORDS SUMMARY | 2024-11-20 16:53 | XMS_ITS | Clinical Summary ---
Author Organization [facility] Address [address] [place] [address] Care Team Providers Care Flue Dust Laborer Name Role Phone Denise Dyson QUAL RESEARCH MANAGER-EXPERIENTIAL THERAPIST Primary Care Provider + Source Comments [facility],non-owned Affiliates and Associated Physician Practices is amultiple site organization consisting of ambulatory clinics and hospital sitesin [place], [place], [place] and [place]. This disclosure is being madepursuant to the Care Everywhere program and may not contain all information available regarding this patient. 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 Date Type Department Care Team Description 11/17/2024 Results Follow-Up [facility] [address] [place] [address] Crystal Kolb MD 11/17/2024 Results Follow-Up [facility] [address] [place], [place] Crystal Jeffrey MD 11/17/2024 Results Follow-Up [facility] [place], [place] Crystal Jeffrey MD 11/17/2024 Results Follow-Up [facility] [address] [place], [place] [address]Crystal Gruber MD 09/01/2024 12:20 PM CDT Office Visit [facility] - Family Medicine [address] [place] [phone] Denise Dyson, QUAL RESEARCH MANAGER-EXPERIENTIAL THERAPIST Encounter for medical examination to establish care [...] Immunization Administration Dates Next Due INFLUENZA A [id number] VACCINE 05/25/2020 INFLUENZA VACCINE, QUADR. 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 11/16/2024 Narrative 11/16/2024 Ordered by an unspecified provider. us Scanned Document LAB - THERAPEUTIC DRUG MONITORI NG ORDERABLES Final Result * CHLAMYDIA + GC AMPLIFIED PROBE (09/02/2024 2:48 PM CDT) Chlamydia GIOVANI Urine Negative Negative [facility] INSURANCE BILL GC GIOVANI Urine Negative Negative [facility] INSURANCE BILL Microbiology URINE / Unknown 09/02/2024 2 :48 PM CDT 09/02/2024 Comment: Narrative [facility] INSURANCE BILL - 09/05/2024 11:07 PM CDT Performed at: - Lab[address], [place] [id number] Solutions Sales Consultant: Eloise Milian MD, Phone: [phone] us Denise Dyson APRN-EXPERIENTIAL THERAPIST LAB - MICROBIOLOGY ORDER TU Final Result Performing Organization Address [facility] Co de Phone Number [facility] INSURANCE BILL [address] [place] [address] * HIV-1 HIV-2 ANTIBODY + HIV P24 AG PANEL (09/02/2024 2:47 PM CDT) Pathologist [facility] HIV Screen 4th Generation w Reflex Non Reactive Non Reactive [facility] INSURANCE BILL Comment: HIV-1/HIV-2 antibodies and HIV-1 p24 antigen were NOT detected. There is no laboratory evidence of HIV infection. HIV Negative Blood BLOOD SPECIMEN / Unknown 09/02/2024 2:47 PM CDT 09/02/2024 Narrative [facility] INSURANCE BILL - 09/03/2024 8:11 AM CDT Performed at: [address] [place] [id number] Solutions Sales Consultant: Kevin Dan PhD, Phone: [phone] Denise Dyson APRN-[facility] LAB - CHEMISTRY ORDERABL ES Final Result Performing Organization Address [facility] de Phone Number [facility] INSURANCE BILL [address] [place] [address] * TSH HI LOW REFLEX FREE T4 (09/02/2024 2:47 PM CDT) [facility] TSH 1.850 0.450 - 4.500 uIU/mL [facility] INSURANCE BILL Blood BLOOD SPECIMEN / Unknown 09/02/2024 2:47 PM CDT 09/02/2024 Narrative [facility] INSURANCE BILL - 09/03/2024 8:11 AM CDT Performed at: [address] [id number] Solutions Sales Consultant: Kevin Dan PhD, Phone: [phone] Denise Dyson QUAL RESEARCH MANAGER-[facility] LAB - CHEMISTRY ORDERABL ES Final Result Performing Organization Address [facility] Co de Phone Number [facility] INSURANCE BILL [address] [place] [address] * (ABNORMAL) VITAMIN D 25-HYDROXY (09/02/2024 2:47 PM CDT) Vitamin D, 25 Hydroxy 25.1(L) 30.0 - 100.0 ng/mL [facility] INSURANCE BILL Comment: Vitamin D deficiency has been defined by the [place] of Medicine and an Endocrine Society practice guideline as a level of serum 25-OH vitamin D less than 20 ng/mL (1,2). The Endocrine Society went on to further define vitamin D insufficiency as a level between 21 and 29 ng/mL (2). 1. IOM ([place] of Medicine). 2010. Dietary reference intakes for calcium and D. [place]: The National Academies Press. 2. [place] MF, Ruddy BOLANOS, Elio CHOW, et al. Evaluation, treatment, and prevention of vitamin D deficiency: an Endocrine Society clinical practice guideline. JCEM. 2010; 96(7):1911-30. Blood BLOOD SPECIMEN / Unknown 09/02/2024 2:47 PM CDT 09/02/2024 Narrative [facility] INSURANCE BILL - 09/03/2024 7:09 AM CDT Performed at: 01 - [address] [id number] Solutions Sales Consultant: Kevin Dna PhD, Phone: [phone] Denise Dyson QUAL RESEARCH MANAGER-EXPERIENTIAL THERAPIST LAB - CHEMISTRY ORDERABL ES Final Result [facility] INSURANCE BILL [address] [place] [address] * CBC WITH DIFFERENTIAL (09/02/2024 2:47 PM [...] 09/03/2024 7:09 AM CDT Performed at: [address] [id number] Solutions Sales Consultant: Kevin Dan PhD, Phone: [phone] Denise Dyson QUAL RESEARCH MANAGER-EXPERIENTIAL THERAPIST LAB - HEMATOLOGY ORDERAB LES Final Result [facility] INSURANCE BILL [address] [place] [address] * (ABNORMAL) COMPREHENSIVE METABOLIC PANEL (09/02/2024 2:47 PM CDT) [facility] Glucose 83 70 - 99 mg/dL [facility] [...] - 09/03/2024 8:11 AM CDT Performed at: [address] [place] [id number] Solutions Sales Consultant: Kevin Dan PhD, Phone: [phone] us Denise Dyson QUAL RESEARCH MANAGER-EXPERIENTIAL THERAPIST LAB - CHEMISTRY ORDERABL ES Final Result [facility] INSURANCE BILL [address] [place] [address] * HEPATITIS C ANTIBODY (09/02/2024 2:47 PM CDT) [facility] Hepatitis C Antibody Non Reactive Non Reactive [...] 7:09 AM CDT [facility]formed [facility]: [facility] [address] [place], [place] [id number] Solutions Sales Consultant: Kevin Dan PhD, Phone: [phone] Denise Dyson QUAL RESEARCH MANAGER-EXPERIENTIAL THERAPIST LAB - CHEMISTRY ORDERABL ES Final Result [facility] INSURANCE BILL [address] [place] [address] * VITAMIN B12 (09/02/2024 2:46 PM CDT) [facility] Vitamin B12 485 232 - 1,245 pg/mL [facility] INSURANCE BILL Blood BLOOD SPECIMEN / Unknown 09/02/2024 2:46 PM CDT 09/02/2024 Narrative [facility] INSURANCE BILL - 09/03/2024 8:11 AM CDT Performed at: [facility] [address] [id number] Solutions Sales Consultant: Kevin Dan PhD, Phone: [phone] Denise Dyson QUAL RESEARCH MANAGER-EXPERIENTIAL THERAPIST LAB - CHEMISTRY ORDERABL ES Final Result Performing Organization Address [facility] Co de Phone Number [facility] INSURANCE BILL [address] [place] [address] from Last 3 Months Insurance [facility] Care Teams Flue Dust Laborer Relationship Specialty Start Date End Date Denise Dyson, QUAL RESEARCH MANAGER-EXPERIENTIAL THERAPIST [address] [place] [address] [place] [address] PCP - General Nurse Practitioner 03/25/23
--- OUTSIDE RECORDS SUMMARY | 2024-11-20 16:53 | XMS_ITS | Encounter Summary ---
Author Organization [facility] Address [address] [place] [address] Care Team Providers Care Substitute Teacher Name Role Phone Denise Dyson APRN-STUDIO TECHNICIAN Primary Care Provider + Encounter Details Date Type Department Care Team (Late st Contact Info) Description 11/17/2024 Results Follow-Up [facility] [address] [place] [address] Crystal Kolb MD [address] [place] [address] Social History Tobacco Use Types Packs/Day Years Used Date Smoking Tobacco: Never Smokeless Tobacco: Never Alcohol Use Standard Drinks/Week Comments Not Currently 0 (1 standard drink = 0.6 oz pur e alcohol) PHQ-2 Answer Date Recorded Patient Health Questionnaire-2 Score 4 09/01/2024 Comments No Sex and Gender Information Value Date Recorded Sex Assigned at Not on file Legal Sex Female 5: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 Gender Identity Not on file Sexual Orientation Not on file documented as of this encounter Progress Notes * Crystal Kolb MD - 11/17/2024 10:29 AM CDT Your laboratory tests from [facility] ER visit from 11/16/2024 arrived to our office-reviewed as discussed over the phone documented in this encounter Plan of Treatment Not on file documented as of this encounter Visit Diagnoses Not on filedocumented in this encounter Care Teams Substitute Teacher Relationship Specialty Start Date End Date Denise Dyson APRN-CNP [address] [phone] PCP - General Nurse Practitioner 03/25/23 documented as of this encounter
--- OUTSIDE RECORDS SUMMARY | 2024-11-20 16:53 | XMS_ITS | Clinical Summary ---
Author Organization [facility] Address [address] [place] [address] Phone Care Team Providers Care Broadcast Program Director Name Role Phone Unavailable Primary Care Provider [...] 05/25/2020, 2018 Medical Devices Implanted Type Area Colors Custodian Device Identifier Shelf Expiration Date Model / Serial / Lot Barrier Interceed Adh 3x4in 4350 - [id number] Implanted:Qt y: 1 on 02/04/2024 by Rahul Kilgore MD at [facility] Adhesion Barrier N/A: Pelvis [employer] [id number] 04/26/2028 [id number] / / [id number] Barrier Interceed Adh 3x4in 4350 - [id number] Implanted:Qt y: 1 on 02/04/2024 by Rahul Kilgore MD at [facility] Adhesion Barrier N/A: Pelvis [employer] [id number] 04/26/2028 [id number] / / [id number] Insurance [facility] OPEN ACCESS HMO RX [employer] Express Advance Directives For more information, please contact: [phone] * Full Code (Latest Code Status on File) Date Activated Date Inactivated Comments 02/04/2024 11:42 AM 02/04/2024 4:01 PM * Full Code Date Activated Date Inactivated Comments 02/04/2024 9:22 AM 02/04/2024 11:42 AM
--- OUTSIDE RECORDS SUMMARY | 2024-11-20 16:53 | XMS_ITS | Clinical Summary ---
Author Organization [facility] Address [address] [place] [address] Care Team Providers Care Sweatband Decorating Machine Operator Name Role Phone Jennifer Reyes Primary Care Provider [phone] Allergies Active Allergy Reactions Criticality Noted Date Comments Adhesive Rash Medium 01/27/2024 [place] Oil Anaphylaxis High 02/09/2022 Cefdinir Hives,Diarrhea Medium [...] 06/12/2021 Assessment & Plan (06/12/2021 10:35 AM SERVICE WORKER): Advised no drops in ear Advised wearing cotton in ear when showering for the next week Advised adding 500mg tylenol q6h prn pain to current ibuprofen regimen x 3d Advised f/u if not improving or if worsening over the next week Otalgia, right 06/12/2021 Assessment & Plan (06/12/2021 10:35 AM SERVICE WORKER): Advised no drops in ear Advised wearing cotton in ear when showering for the next week Advised adding 500mg tylenol q6h prn pain to current ibuprofen regimen x 3d Advised f/u if not improving or if worsening over the next week Dermatitis 06/12/2021 Assessment & Plan (06/12/2021 10:36 AM SERVICE WORKER): Will add steroid cream bid x 7 days. She was advised f/u in the next week if not improving, sooner if worsening. Tobacco use 06/12/2021 Assessment & Plan (06/12/2021 10:35 AM SERVICE WORKER): Encouraged continued attempts at smoking cessation, discussed that the wellbutrin may benefit these attempts Moderate episode of recurrent major depressive d isorder 06/12/2021 Assessment & Plan (06/12/2021 10:36 AM SERVICE WORKER): Continue with care per psychiatry Endometriosis 06/12/2021 Assessment & Plan (06/12/2021 10:36 AM SERVICE WORKER): Continue with care per corncob pipes assembler Psychogenic nonepileptic seizure 08/09/2020 Migraine without aura and wi thout status migrainosus, not intractable 04/23/2020 Episodes of decreased attentiveness 04/23/2020 Assessment & Plan (06/12/2021 10:36 AM SERVICE WORKER): Continue with care per psychiatry Mild intermittent asthma 05/24/2018 Assessment & Plan (05/24/2018 4:45 AM SERVICE WORKER): Present on admission, currently asymptomatic. -Albuterol PRN Multiple food allergies 05/24/2018 Assessment & Plan (05/24/2018 4:47 AM SERVICE WORKER): Present on admission, currently asymptomatic. -Epinephrine 0.3mg IM PRN anaphylaxis Cervical pain (neck) 12/02/2016 Assessment & Plan (05/24/2018 4:47 AM SERVICE WORKER): Present on admission. Given description as unilateral [...] CDT Office Visit [facility] [address] 7[address] [place] [address] Sara Alcala MD Endometriosis (Primary [...] on file Legal Sex Female 11:46 PM SERVICE WORKER Gender Identity Not on file Sexual Orientation [...] Oxygen Saturation 99% 06/02/2022 10: 15 AM SERVICE WORKER Inhaled Oxygen Concentration - - Weight 57.5 [...] CIGNA OPEN ACCESS CIGNA OPEN ACCESS AETNA [facility] [place] [address] [address] OPEN ACCESS IDPA [facility] Advance Directives For more information, please contact: [phone] Documents on File Type Date Recorded Patient Corrugator Operator Helper Expl anation ADVANCE DIRECTIVE 05/24/2018 12:50 AM * Full Code (Latest Code Status on File) Date Activated Date Inactivated Comments 06/27/2020 8:51 AM 06/30/2020 8:59 PM * Full Code Date Activated Date Inactivated Comments 05/24/2018 2:35 AM 05/25/2018 6:00 PM Care Teams Sweatband Decorating Machine Operator Relationship Specialty Start Date End Date Jennifer Reyes PA PCP - General Harp Action Assembler 06/12/21
--- OUTSIDE RECORDS SUMMARY | 2024-11-20 16:53 | XMS_ITS | Encounter Summary ---
Author Organization [facility] Address [address] [place] [address] Care Team Providers Care Hot Water Heater Installer Name Role Phone Denise Dyson APRN-CAT DOG OR OTHER PET GROOMER Primary Care Provider + Encounter Details Date Type Department Care Team (Late st Contact Info) Description 11/17/2024 Results Follow-Up [facility] [address] [place] [address] Crystal Kolb MD [address] [place] [address] Social History Tobacco Use Types [...] on file Legal Sex Female 5:40 AM UNIT DIRECTOR Gender Identity Not on file Sexual Orientation Not on file documented as of this encounter Progress Notes * Crystal Kolb MD - 11/17/2024 10:30 AM CDT Your laboratory tests results from [facility] ER visit on 11/16/2024 arrive to our office-reviewed as discussed over the phone documented in this encounter Plan of Treatment Not on file documented as of this encounter Visit Diagnoses Not on filedocumented in this encounter Care Teams Hot Water Heater Installer Relationship Specialty Start Date End Date Denise Dyson APRN-CNP [address] [phone] PCP - General Nurse Practitioner 03/25/23 documented as of this encounter
--- OUTSIDE RECORDS SUMMARY | 2024-11-20 16:53 | XMS_ITS | Encounter Summary ---
Author Organization [facility] Address [address] [place] [address] Care Team Providers Care High School Social Studies Tutor Name Role Phone Denise Dyson APRN-LOVIN Primary Care Provider + Encounter Details Date Type Department Care Team (Late st Contact Info) Description 11/17/2024 Results Follow-Up [facility] [address] [place] [address] Crystal Kolb MD [address] [place] [address] Social History Tobacco Use Types [...] on file Legal Sex Female 5:40 AM COPPER MINER Gender Identity Not on file Sexual Orientation Not on file documented as of this encounter Progress Notes * Crystal Kolb MD - 11/17/2024 10:18 AM CDT Please review laboratory tests in MyChart: test negative documented in this encounter Plan of Treatment Not on file documented as of this encounter Visit Diagnoses Not on filedocumented in this encounter Care Teams High School Social Studies Tutor Relationship Specialty Start Date End Date Denise Dyson APRN-CNP [address] [place] [address] [place] [address] PCP - General Nurse Practitioner 03/25/23 documented as of this encounter
--- OUTSIDE RECORDS SUMMARY | 2024-11-20 16:53 | XMS_ITS | Encounter Summary ---
Author Organization [facility] Address [address] [place] [address] Care Team Providers Care Forestry Instructor Name Role Phone Denise Dyson APRN-FORM SETTER/DRIVER Primary Care Provider + Encounter Details Date Type Department Care Team (Late st Contact Info) Description 11/17/2024 Results Follow-Up [facility] [address] [place] [address] Crystal Kolb MD [address] [place] [address] Social History Tobacco Use Types [...] on file Legal Sex Female 5:40 AM MARKETING TEACHER Gender Identity Not on file Sexual Orientation Not on file documented as of this encounter Progress Notes * Crystal Kolb MD - 11/17/2024 10:30 AM CDT Your results from [facility] ER visit from 11/16/2024 arrive to our office-reviewed as discussed over the phone documented in this encounter Plan of Treatment Not on file documented as of this encounter Visit Diagnoses Not on filedocumented in this encounter Care Teams Forestry Instructor Relationship Specialty Start Date End Date Denise Dyson APRN-CNP [address] [phone] PCP - General Nurse Practitioner 03/25/23 documented as of this encounter
[2024-11-20 16:54] VITALS: BP 129/79; PULSE 92; RESP 16; TEMP 36.6; O2SAT 98
--- OUTSIDE RECORDS SUMMARY | 2024-11-20 16:54 | XMS_ITS | Patient Health Record ---
Author Organization [facility] [employer] Address [address] [place] [address] Care Team Providers Care Diving Instructor Name Role Phone Herlinda Arriola Unavailable [phone] Allergies Allergen (clinical drug ingredient) Drug/Non Drug [...] cine 2nd dose Unknown 10/08/2020 Administered Novel Qvlvpoxht-[id number], preservative free Unknown 05/25/2020 Administered Social History [...] NoDo you have a medical power of transactional attorney?: NoPublic Health and TravelHave you been [...] Problem Bipolar affective disorder, currently depressed, mild (044223396) Bipolar disorder, current episode depressed, mild (F31.31) 08/21/19 24 Active confirmed Problem Generalized anxiety disorder (11003508) Generalized anxiety disorder (F41.1) 08/21/19 24 Active confirmed Problem Posttraumatic stress disorder (78095189) Post-traumatic stress disorder, chronic (F43.12) 08/21/19 24 Active confirmed Problem Insomnia disorder related to another mental disorder (49655638) Insomnia due to other mental disorder (F51.05) 08/21/19 Active confirmed Problem Screening for cardiovascular system disease (972272367) Encounter for screening for cardiovascular disorders (Z13.6) Active confirmed Problem Long-term current use of drug therapy (113257300) Other termination clerk (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 (Z79.899) 08/21/19 Active confirmed Problem Depression Screening (364106662) Encounter for screening for depression (Z13.31) Active confirmed Problem Attention deficit hyperactivity disorder (413680491) ADHD (attention deficit hyperactivity disorder), combined type (F90.2) Active confirmed Vital Signs Heart Rate 67 /min 08/23/2024 Respiratory Rate 18 /min 01/11/2024 Blood pressure diastolic 72 mm Hg 08/23/2024 Height-cm 162.56 cm 08/23/2024 Weight-kg 58.97 kg 08/23/2024 Height 64.00 in 08/23/2024 Blood pressure systolic 108 mm Hg 08/23/2024 Weight 130 lbs 08/23/2024 BMI 22.31 kg/m2 08/23/2024 Encounters Encounter Location Date Provider Diagnosis [employer] [address] [facility] [address] [address] 01/11/2024 Herlinda Arriola Bipolar disorder, current episode depressed, mild F31.31 ; Generalized anxiety disorder F41.1 ; Insomnia due to other mental disorder F51.05 ; Post-traumatic stress disorder, chronic F43.12 and Other termination clerk (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 Z79.899 [facility] [facility] [address] [facility] [address] [address] 02/01/2024 Herlinda Arriola Bipolar disorder, current episode depressed, mild F31.31 ; Generalized anxiety disorder F41.1 ; Insomnia due to other mental disorder F51.05 ; Post-traumatic stress disorder, chronic F43.12 and Other fpc (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 Z79.899 [facility] [address] [facility] [address] [address] 02/29/2024 Herlinda Arriola Bipolar disorder, current episode depressed, mild F31.31 ; Generalized anxiety disorder F41.1 ; Insomnia due to other mental disorder F51.05 ; Post-traumatic stress disorder, chronic F43.12 and Other fpc (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 Z79.899 [facility] [facility] [address] [facility] [address] [place] [address] 04/14/2024 Herlinda Arriola Bipolar disorder, current episode depressed, mild F31.31 ; Generalized anxiety disorder F41.1 ; Insomnia due to other mental disorder F51.05 ; Post-traumatic stress disorder, chronic F43.12 and Other fpc (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 Z79.899 [facility], [facility] [address] [facility] [address] [facility] [address] [place] [address] 05/16/2024 Herlindahugo Arriola Bipolar disorder, current episode depressed, mild F31.31 ; Generalized anxiety disorder F41.1 ; Insomnia due to other mental disorder F51.05 ; Post-traumatic stress disorder, chronic F43.12 and Other fpc (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 Z79.899 [facility], [facility] [address] [facility] [address] [address] 06/02/2024 Herlindahugo Arriola Bipolar disorder, current episode depressed, mild F31.31 ; Generalized anxiety disorder F41.1 ; Insomnia due to other mental disorder F51.05 ; Post-traumatic stress disorder, chronic F43.12 and Other termination clerk (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 Z79.899 [facility] [employer] [facility] [address] [facility] [address] [address] 06/10/2024 Herlinda Arriola Bipolar disorder, current episode depressed, mild F31.31 ; Generalized anxiety disorder F41.1 ; Insomnia due to other mental disorder F51.05 ; Post-traumatic stress disorder, chronic F43.12 and Other termination clerk (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 Z79.899 [facility] [employer], [facility] [address] [facility] [address] [address] 06/24/2024 Herlindahugo Arriola Bipolar disorder, current episode depressed, mild F31.31 ; Generalized anxiety disorder F41.1 ; Insomnia due to other mental disorder F51.05 ; Post-traumatic stress disorder, chronic F43.12 and Other termination clerk (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 Z79.899 [facility] [employer], [facility] [address] [facility] [address] [facility] [address] [place] [address] 08/08/2024 Herlinda Arriola Encounter for screen ing for depression Z13.31 ; Encounter for screening for cardiovascular disorders Z13.6 ; Bipolar disorder, current episode depressed, mild F31.31 ; Generalized anxiety disorder F41.1 ; Insomnia due to other mental disorder F51.05 ; Post-traumatic stress disorder, chronic F43.12 ; Other termination clerk (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 Z79.899 and ADHD (attention deficit hyperactivity disorder), combined type F90.2 [facility] [employer] [facility] [address] [facility] [address] [address] 08/23/2024 Herlinda Arriola Encounter for screen ing for depression Z13.31 ; Encounter for screening for cardiovascular disorders Z13.6 ; Bipolar disorder, current episode depressed, mild F31.31 ; Generalized anxiety disorder F41.1 ; Insomnia due to other mental disorder F51.05 ; Post-traumatic stress disorder, chronic F43.12 ; Other termination clerk (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 Z79.899 ; ADHD (attention deficit hyperactivity disorder), combined type F90.2 and Nicotine use Z72.0 [facility] [employer] [place] [address] [address] 09/16/2024 Herlinda [employer] [facility], [place] [address] [facility] [address] [address] 04/13/2024 Hrelinda [employer] [facility], [place] [address] [address] 05/16/2024 Herlinda [employer] [facility], [place] [address] [address] 08/22/2024 Herlinda [employer] [facility], [place] [address] [address] 08/22/2024 Herlinda [employer] [facility], [place] [address] [facility] [address] [address] 08/22/2024 Herlinda Arriola Assessments Encounter Date Diagnosis [...] rx 4-5 days continue rx jaleel 05/19 https://www.[employer]/bxyklksg-wbw-iznte sim-wywejnfhw-pxmi/ Lamotrigine 100 mg - patient reported depression [...] FND 2. Generalized anxiety disorder -continue medications interior block wirer PRESCRIBES Xanax - educated to take as [...] and educated on complaince rx jaleel 05/19 https://www.[employer]/xgigkfnx-dnd-gklwk otg-mgunplygi-vfud/ Lamotrigine 100 mg - patient reported depression [...] FND 2. Generalized anxiety disorder -continue medications interior block wirer PRESCRIBES Xanax - educated to take as [...] anxiety, panic and depression - schedule therapy Kvaitha- Prozac 20 mg daily - monitor for [...] and educated on complaince rx jaleel 05/19 https://www.[employer]/amvnnclx-mzr-tgdym zoo-cfwzlfygv-kmsc/ Lamotrigine 100 mg - patient reported depression [...] FND 2. Generalized anxiety disorder -continue medications interior block wirer PRESCRIBES Xanax - educated to take as [...] and educated on complaince rx jaleel 05/19 https://www.[employer]/xxsmtmbd-sme-wowms soj-ojtfckdgc-rowo/ Increase Lamotrigine 150 mg - patient reported [...] FND 2. Generalized anxiety disorder -continue medications interior block wirer PRESCRIBES Xanax - educated to take as [...] and educated on complaince rx jaleel 05/19 https://www.[employer]/gknxajiz-hlg-qnyqn dap-lbnivnxdn-utca/ Increase Lamotrigine 200 mg - patient reported [...] FND 2. Generalized anxiety disorder -continue medications interior block wirer PRESCRIBES Xanax - educated to take as [...] and educated on complaince rx jaleel 05/19 https://www.[employer]/mwytzzzy-bgb-goiih dhs-sjpsgbazx-wmbn/ Lamotrigine 200 mg - patient reported depression [...] FND 2. Generalized anxiety disorder -continue medications interior block wirer PRESCRIBES Xanax - educated to take as [...] and educated on complaince rx jaleel 05/19 https://www.[employer]/yxcjppni-ujm-epxpf htw-gghugaeat-tcok/ Lamotrigine 200 mg - patient reported depression [...] FND 2. Generalized anxiety disorder -continue medications interior block wirer PRESCRIBES Xanax - educated to take as [...] -therapy 5. Long-term drug therapy - 06/24/2024 Bipolar [...] rx jaleel 05/19 no refill needed today https://www.[employer]/eqovjihi-cey-hniye hwe-hkozsivba-sjcs/ Lamotrigine 200 mg - patient reported depression [...] FND 2. Generalized anxiety disorder -continue medications interior block wirer PRESCRIBES Xanax - educated to take as [...] and educated on complaince rx jaleel 05/19 https://www.[employer]/ajgepmme-wsg-woaaa dpe-acgrnxvwd-msnr/ Lamotrigine 200 mg - patient reported depression [...] FND 2. Generalized anxiety disorder -continue medications interior block wirer PRESCRIBES Xanax - educated to take as [...] and educated on complaince rx jaleel 05/19 https://www.[employer]/nanqptlh-yiq-xaunu fnm-hbazyacdt-pahd/ Lamotrigine 200 mg - schedule weekly appointment [...] FND 2. Generalized anxiety disorder -continue medications interior block wirer PRESCRIBES Xanax - educated to take as [...] rx . Long-term drug therapy - 08/23/2024 Encounter for screening for cardiovascular disorders (ICD-10 - Z13.6) 1. Bipolar I disorder, most recent episode depression - educated to take rx as prescribed Abilify 10 mg at bedtime continue rx and educated on complaince rx jaleel 05/19 https://www.[employer]/mishrhfu-wih-zxdgb ukc-tnltyajyx-zjfi/ Lamotrigine 200 mg - schedule weekly appointment [...] FND 2. Generalized anxiety disorder -continue medications interior block wirer PRESCRIBES Xanax - educated to take as [...] and educated on complaince rx jaleel 05/19 https://www.[employer]/mmcblhuj-alf-pqvqn zrf-akzcdiqoz-itth/ Lamotrigine 200 mg - patient reported depression [...] FND 2. Generalized anxiety disorder -continue medications interior block wirer PRESCRIBES Xanax - educated to take as [...] am . Long-term drug therapy - 06/24/2024 Generalized anxiety [...] rx jaleel 05/19 no refill needed today https://www.[employer]/orohztio-nmi-rqxyx nrz-yvxmjlfbs-ughy/ Lamotrigine 200 mg - patient reported depression [...] FND 2. Generalized anxiety disorder -continue medications interior block wirer PRESCRIBES Xanax - educated to take as [...] and educated on complaince rx jaleel 05/19 https://www.[employer]/kdebhdis-bag-lxygy fbq-vayqimgzi-rwyt/ Lamotrigine 200 mg - patient reported depression [...] FND 2. Generalized anxiety disorder -continue medications interior block wirer PRESCRIBES Xanax - educated to take as [...] and educated on complaince rx jaleel 05/19 https://www.[employer]/vovbjobm-khp-ukmbz uxp-xdgvomhxu-bhvy/ Lamotrigine 200 mg - patient reported depression [...] and photosensitivity.Seriou s reactions include: Rash, severe; Stuatr Noble syndrome; toxic epidermal necrosis;injury edema, hypersensitivity [...] FND 2. Generalized anxiety disorder -continue medications interior block wirer PRESCRIBES Xanax - educated to take as [...] and educated on complaince rx jaleel 05/19 https://www.[employer]/ltohxzhh-ynr-colze vhq-wdsjznxjh-zrwu/ Increase Lamotrigine 200 mg - patient reported [...] FND 2. Generalized anxiety disorder -continue medications interior block wirer PRESCRIBES Xanax - educated to take as [...] and educated on complaince rx jaleel 05/19 https://www.[employer]/qgyufosa-efl-uoktu ouc-hslxylbqu-oyvc/ Increase Lamotrigine 150 mg - patient reported [...] FND 2. Generalized anxiety disorder -continue medications interior block wirer PRESCRIBES Xanax - educated to take as [...] and educated on complaince rx jaleel 05/19 https://www.[employer]/layziush-akw-wuseh vwv-simeuugth-dyek/ Lamotrigine 100 mg - patient reported depression [...] FND 2. Generalized anxiety disorder -continue medications interior block wirer PRESCRIBES Xanax - educated to take as [...] and educated on complaince rx jaleel 05/19 https://www.[employer]/vxihdscm-rzt-skndi qtb-igclpigqj-kwmt/ Lamotrigine 100 mg - patient reported depression [...] FND 2. Generalized anxiety disorder -continue medications interior block wirer PRESCRIBES Xanax - educated to take as [...] -therapy 5. Long-term drug therapy - 01/11/2024 Generalized [...] rx 4-5 days continue rx jaleel 05/19 https://www.[employer]/ojigjlnw-vov-rpinh ixe-dnxljhgwr-tfwu/ Lamotrigine 100 mg - patient reported depression [...] FND 2. Generalized anxiety disorder -continue medications interior block wirer PRESCRIBES Xanax - educated to take as [...] rx 4-5 days continue rx jaleel 05/19 https://www.[employer]/ppaesvtg-bba-rlexf vnp-jftfaryih-lhsn/ Lamotrigine 100 mg - patient reported depression [...] FND 2. Generalized anxiety disorder -continue medications interior block wirer PRESCRIBES Xanax - educated to take as [...] and educated on complaince rx jaleel 05/19 https://www.[employer]/uwtcpjlf-qdi-ecydv kai-ndvrofjoh-fxbq/ Lamotrigine 100 mg - patient reported depression [...] FND 2. Generalized anxiety disorder -continue medications interior block wirer PRESCRIBES Xanax - educated to take as [...] and educated on complaince rx jaleel 05/19 https://www.[employer]/mcajiadp-zzt-wplbe jbj-lboukqebd-yeel/ Lamotrigine 100 mg - patient reported depression [...] FND 2. Generalized anxiety disorder -continue medications interior block wirer PRESCRIBES Xanax - educated to take as [...] and educated on complaince rx jaleel 05/19 https://www.[employer]/xzzztyxw-enk-dpqjw oev-brutonxll-dztt/ Increase Lamotrigine 150 mg - patient reported [...] FND 2. Generalized anxiety disorder -continue medications interior block wirer PRESCRIBES Xanax - educated to take as [...] and educated on complaince rx jaleel 05/19 https://www.[employer]/ivwqqbgi-uyx-btjbe rdo-itmwcfmkz-yyxu/ Increase Lamotrigine 200 mg - patient reported [...] FND 2. Generalized anxiety disorder -continue medications interior block wirer PRESCRIBES Xanax - educated to take as [...] and educated on complaince rx jaleel 05/19 https://www.[employer]/mxhshptl-vwz-kkyeg bul-kmzzizxac-lgoj/ Lamotrigine 200 mg - patient reported depression [...] FND 2. Generalized anxiety disorder -continue medications interior block wirer PRESCRIBES Xanax - educated to take as [...] and educated on complaince rx jaleel 05/19 https://www.[employer]/gvqherhx-fef-qjlnv mwz-mkraoffxs-pdwg/ Lamotrigine 200 mg - patient reported depression [...] FND 2. Generalized anxiety disorder -continue medications interior block wirer PRESCRIBES Xanax - educated to take as [...] -therapy 5. Long-term drug therapy - 06/24/2024 Insomnia due to other mental disorder (ICD-10 - F51.05) 1. Bipolar I disorder, most recent episode depression - educated to take rx as prescribed Abilify 10 mg at bedtime continue rx and educated on complaince rx jaleel 05/19 no refill needed today https://www.[employer]/qjbvubsy-jpr-ppbfy niz-wkszmscys-hxhu/ Lamotrigine 200 mg - patient reported depression [...] FND 2. Generalized anxiety disorder -continue medications interior block wirer PRESCRIBES Xanax - educated to take as [...] -therapy 5. Long-term drug therapy - 08/08/2024 Bipolar [...] and educated on complaince rx jaleel 05/19 https://www.[employer]/noqvxlup-vbt-mikns uux-vkxkqwhll-wusi/ Lamotrigine 200 mg - patient reported depression [...] FND 2. Generalized anxiety disorder -continue medications interior block wirer PRESCRIBES Xanax - educated to take as [...] and educated on complaince rx jaleel 05/19 https://www.[employer]/meukbapy-skb-kyxsa oyg-qxupxgirq-xinb/ Lamotrigine 200 mg - patient reported depression [...] FND 2. Generalized anxiety disorder -continue medications interior block wirer PRESCRIBES Xanax - educated to take as [...] am . Long-term drug therapy - 08/23/2024 Bipolar [...] and educated on complaince rx jaleel 05/19 https://www.[employer]/ojpthmfa-dsx-xqwwv flu-cnxkmtvea-dkff/ Lamotrigine 200 mg - schedule weekly appointment [...] FND 2. Generalized anxiety disorder -continue medications interior block wirer PRESCRIBES Xanax - educated to take as [...] rx . Long-term drug therapy - 08/23/2024 Generalized [...] and educated on complaince rx jaleel 05/19 https://www.[employer]/uliznndz-sdc-wbodb ewp-oejxidbun-kotx/ Lamotrigine 200 mg - schedule weekly appointment [...] FND 2. Generalized anxiety disorder -continue medications interior block wirer PRESCRIBES Xanax - educated to take as [...] rx . Long-term drug therapy - 08/08/2024 Insomnia due to other mental disorder (ICD-10 - F51.05) 1. Bipolar I disorder, most recent episode depression - educated to take rx as prescribed Abilify 10 mg at bedtime continue rx and educated on complaince rx jaleel 05/19 https://[employer].FeZo/vloirrbt-yxb-gwmgz hyu-xwfhbrrwr-mhas/ Lamotrigine 200 mg - patient reported depression [...] FND 2. Generalized anxiety disorder -continue medications interior block wirer PRESCRIBES Xanax - educated to take as [...] rx jaleel 05/19 no refill needed today https://www.[employer]/myswrnfp-vqu-bfqvv dlk-tlemjkdfb-vrhv/ Lamotrigine 200 mg - patient reported depression [...] FND 2. Generalized anxiety disorder -continue medications interior block wirer PRESCRIBES Xanax - educated to take as [...] and educated on complaince rx jaleel 05/19 https://www.Fe[employer]/bfeamcqs-ssj-ezxzm gmc-qvlczozag-mjah/ Lamotrigine 200 mg - patient reported depression [...] FND 2. Generalized anxiety disorder -continue medications interior block wirer PRESCRIBES Xanax - educated to take as [...] and educated on complaince rx jaleel 05/19 https://www.[employer]/wivmehig-kky-iybwn rpe-gjurtdkbe-njbv/ Lamotrigine 200 mg - patient reported depression [...] FND 2. Generalized anxiety disorder -continue medications interior block wirer PRESCRIBES Xanax - educated to take as [...] and educated on complaince rx jaleel 05/19 https://www.[employer]/hwxfboob-mkq-rsstn xrj-ifvnvgowh-nlcz/ Increase Lamotrigine 200 mg - patient reported [...] FND 2. Generalized anxiety disorder -continue medications interior block wirer PRESCRIBES Xanax - educated to take as [...] - educated to take rx as prescribed Abigilberty 10 mg at bedtime started 05/22/22- continue rx and educated on complaince rx jaleel 05/19 https://www.[employer]/ggzjbsqe-cny-xzyaw tbw-ziadmxjcd-gldx/ Increase Lamotrigine 150 mg - patient reported [...] FND 2. Generalized anxiety disorder -continue medications interior block wirer PRESCRIBES Xanax - educated to take as [...] and educated on complaince rx jaleel 05/19 https://www.Fe[employer]/qcwrhxmu-yya-rxepu aqw-qxlkwalke-fgva/ Lamotrigine 100 mg - patient reported depression [...] FND 2. Generalized anxiety disorder -continue medications interior block wirer PRESCRIBES Xanax - educated to take as [...] anxiety, panic and depression - schedule therapy KavithaEfrain rat requested to stop Prozac 20 mg daily [...] and educated on complaince rx jaleel 05/19 https://www.[employer]/nmabosfa-sth-sliov cle-lgdjybvjf-hghw/ Lamotrigine 100 mg - patient reported depression [...] FND 2. Generalized anxiety disorder -continue medications interior block wirer PRESCRIBES Xanax - educated to take as [...] -therapy 5. Long-term drug therapy - 01/11/2024 Post-traumatic stress disorder, chronic (ICD-10 - F43.12) Post-Traumatic Stress Disorder (PTSD): Care Instructions material was published, Post-Traumatic Stress Disorder (PTSD): Care Instructions material was published 1. Bipolar I disorder, most recent episode depression - educated to take rx as prescribed Abilify 10 mg at bedtime started 05/22/22- reported been off rx 4-5 days continue rx jaleel 05/19 https://www.[employer]/jynihdbj-vjr-bbkmn yzq-aibrnmtzx-rptk/ Lamotrigine 100 mg - patient reported depression [...] FND 2. Generalized anxiety disorder -continue medications interior block wirer PRESCRIBES Xanax - educated to take as [...] 5. Long-term drug therapy - 01/11/2024 Other fpc (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 (ICD-10 - Z79.899) Medication Refill: Care Instructions material was published, Medication Refill: Care Instructions material was published 1. Bipolar I disorder, most recent episode depression - educated to take rx as prescribed Abilify 10 mg at bedtime started 05/22/22- reported been off rx 4-5 days continue rx jaleel 05/19 https://www.[employer]/bnktnvbe-aii-ktetv qfp-dytwbbbor-ixtp/ Lamotrigine 100 mg - patient reported depression [...] FND 2. Generalized anxiety disorder -continue medications interior block wirer PRESCRIBES Xanax - educated to take as [...] 5. Long-term drug therapy - 02/01/2024 Other termination clerk (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 (ICD-10 - Z79.899) Medication Refill: Care Instructions material was published, Medication Refill: Care Instructions material was published 1. Bipolar I disorder, most recent episode depression - educated to take rx as prescribed Abilify 10 mg at bedtime started 05/22/22- continue rx and educated on complaince rx jaleel 05/19 https://www.[employer]/bdwurkox-plv-ozcsg gao-vndlzooeg-wwwg/ Lamotrigine 100 mg - patient reported depression [...] FND 2. Generalized anxiety disorder -continue medications interior block wirer PRESCRIBES Xanax - educated to take as [...] 5. Long-term drug therapy - 02/29/2024 Other termination clerk (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 (ICD-10 - Z79.899) Medication Refill: Care Instructions material was published, Medication Refill: Care Instructions material was published 1. Bipolar I disorder, most recent episode depression - educated to take rx as prescribed Abilify 10 mg at bedtime started 05/22/22- continue rx and educated on complaince rx jaleel 05/19 https://www.[employer]/vqutvbhg-hni-hnfvf bnw-swmrtagfx-rlvd/ Lamotrigine 100 mg - patient reported depression [...] FND 2. Generalized anxiety disorder -continue medications interior block wirer PRESCRIBES Xanax - educated to take as [...] 5. Long-term drug therapy - 04/14/2024 Other termination clerk (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 (ICD-10 - Z79.899) Medication Refill: Care Instructions material was published, Medication Refill: Care Instructions material was published 1. Bipolar I disorder, most recent episode depression - educated to take rx as prescribed Abilify 10 mg at bedtime started 05/22/22- continue rx and educated on complaince rx jaleel 05/19 https://www.[employer]/yuttejpc-xeq-xcxof utt-gbndyuuzv-zlnd/ Increase Lamotrigine 150 mg - patient reported [...] FND 2. Generalized anxiety disorder -continue medications interior block wirer PRESCRIBES Xanax - educated to take as [...] 5. Long-term drug therapy - 05/16/2024 Other fpc (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 (ICD-10 - Z79.899) Medication Refill: Care Instructions material was published, Medication Refill: Care Instructions material was published 1. Bipolar I disorder, most recent episode depression - educated to take rx as prescribed Abilify 10 mg at bedtime continue rx and educated on complaince rx jaleel 05/19 https://www.[employer]/hzrvgehf-cfh-lmgpj ezs-iidlcwjdi-idji/ Increase Lamotrigine 200 mg - patient reported [...] FND 2. Generalized anxiety disorder -continue medications interior block wirer PRESCRIBES Xanax - educated to take as [...] 5. Long-term drug therapy - 06/02/2024 Other termination clerk (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 (ICD-10 - Z79.899) Medication Refill: Care Instructions material was published, Medication Refill: Care Instructions material was published 1. Bipolar I disorder, most recent episode depression - educated to take rx as prescribed Abilify 10 mg at bedtime continue rx and educated on complaince rx jaleel 05/19 https://www.FeZo/rkpzcdtl-rob-eprzy leb-yhyhxdygk-wqhm/ Lamotrigine 200 mg - patient reported depression [...] FND 2. Generalized anxiety disorder -continue medications interior block wirer PRESCRIBES Xanax - educated to take as [...] 5. Long-term drug therapy - 06/10/2024 Other fpc (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 (ICD-10 - Z79.899) Medication Refill: Care Instructions material was published, Medication Refill: Care Instructions material was published 1. Bipolar I disorder, most recent episode depression - educated to take rx as prescribed Abilify 10 mg at bedtime continue rx and educated on complaince rx jaleel 05/19 https://www.FeZo/lujfrmzb-jze-jfwhr izb-jgohtgplj-zqcf/ Lamotrigine 200 mg - patient reported depression [...] FND 2. Generalized anxiety disorder -continue medications interior block wirer PRESCRIBES Xanax - educated to take as [...] -therapy 5. Long-term drug therapy - 08/08/2024 Post-traumatic [...] and educated on complaince rx jaleel 05/19 https://www.FeZo/ixbtayav-nxj-jabbh biz-ihurwcbwc-fosy/ Lamotrigine 200 mg - patient reported depression [...] FND 2. Generalized anxiety disorder -continue medications interior block wirer PRESCRIBES Xanax - educated to take as [...] . Long-term drug therapy - 06/24/2024 Other fpc (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 (ICD-10 - Z79.899) Medication Refill: Care Instructions material was published, Medication Refill: Care Instructions material was published 1. Bipolar I disorder, most recent episode depression - educated to take rx as prescribed Abilify 10 mg at bedtime continue rx and educated on complaince rx jaleel 05/19 no refill needed today https://www.[employer] .[employer]/qtpawltg-gqy-houwo xxb-shidsmezk-uwip/ Lamotrigine 200 mg - patient reported depression [...] FND 2. Generalized anxiety disorder -continue medications interior block wirer PRESCRIBES Xanax - educated to take as [...] and educated on complaince rx jaleel 05/19 https://www.[employer] .[employer]/uwmssymm-srf-zfmdb ewj-nllncvwvk-bagz/ Lamotrigine 200 mg - schedule weekly appointment [...] FND 2. Generalized anxiety disorder -continue medications interior block wirer PRESCRIBES Xanax - educated to take as [...] rx . Long-term drug therapy - 08/23/2024 Post-traumatic [...] and educated on complaince rx jaleel 05/19 https://www.FeZo/eqnqjbko-uqu-fdxcx sws-ncqqlxrlo-rdkn/ Lamotrigine 200 mg - schedule weekly appointment [...] FND 2. Generalized anxiety disorder -continue medications interior block wirer PRESCRIBES Xanax - educated to take as [...] rx . Long-term drug therapy - 08/08/2024 Other termination clerk (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 (ICD-10 - Z79.899) Medication Refill: Care Instructions material was published, Medication Refill: Care Instructions material was published, Medication Refill: Care Instructions material was published 1. Bipolar I disorder, most recent episode depression - educated to take rx as prescribed Abilify 10 mg at bedtime continue rx and educated on complaince rx jaleel 05/19 https://www.FeZo/ojlgpaed-dys-sgpxd tzh-afjwtvgks-nrps/ Lamotrigine 200 mg - patient reported depression [...] FND 2. Generalized anxiety disorder -continue medications interior block wirer PRESCRIBES Xanax - educated to take as [...] am . Long-term drug therapy - 08/08/2024 ADHD [...] and educated on complaince rx jaleel 05/19 https://www.FeZo/dsoxvsww-oqo-xsofq gab-yshinaktw-cafy/ Lamotrigine 200 mg - patient reported depression [...] FND 2. Generalized anxiety disorder -continue medications interior block wirer PRESCRIBES Xanax - educated to take as [...] am . Long-term drug therapy - 08/23/2024 Other termination clerk (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 (ICD-10 - Z79.899) Medication Refill: Care Instructions material was published, Medication Refill: Care Instructions material was published, Medication Refill: Care Instructions material was published 1. Bipolar I disorder, most recent episode depression - educated to take rx as prescribed Abilify 10 mg at bedtime continue rx and educated on complaince rx jaleel 05/19 https://www.[employer] .[employer]/kzqiypqp-azj-ubmqz wtu-nqyllvmvn-nows/ Lamotrigine 200 mg - schedule weekly appointment [...] FND 2. Generalized anxiety disorder -continue medications interior block wirer PRESCRIBES Xanax - educated to take as [...] rx . Long-term drug therapy - 08/23/2024 ADHD [...] and educated on complaince rx jaleel 05/19 https://www.FeZo/mqbhogdp-bcw-nrjpx yag-gbgffyllh-hxyk/ Lamotrigine 200 mg - schedule weekly appointment [...] FND 2. Generalized anxiety disorder -continue medications interior block wirer PRESCRIBES Xanax - educated to take as [...] and educated on complaince rx jaleel 05/19 https://www.FeZo/augutmog-vsr-twfyg vnh-gezwdwsuw-nvnq/ Lamotrigine 200 mg - schedule weekly appointment [...] FND 2. Generalized anxiety disorder -continue medications interior block wirer PRESCRIBES Xanax - educated to take as [...] rx 4-5 days continue rx jaleel 05/19 https://www.FeZo/ifoimmtc-zvx-jgbbz riv-yxakkxays-qerp/ Lamotrigine 100 mg - patient reported depression [...] FND 2. Generalized anxiety disorder -continue medications interior block wirer PRESCRIBES Xanax - educated to take as [...] and educated on complaince rx jaleel 05/19 https://www.FeZo/vnysyvbe-ksu-davfs tzl-gtsweosqn-bzrz/ Lamotrigine 200 mg - patient reported depression [...] FND 2. Generalized anxiety disorder -continue medications interior block wirer PRESCRIBES Xanax - educated to take as [...] Insured Coverage Start Date Coverage End Date [employer] [address] [place] [address] [phone] [id number] TRAVIS MACHADO Child - Insured has Financial [...]
--- OUTSIDE RECORDS SUMMARY | 2024-11-20 16:54 | XMS_ITS | Clinical Summary ---
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
--- OUTSIDE RECORDS SUMMARY | 2024-11-20 16:54 | XMS_ITS | Clinical Summary ---
Author Organization [facility] Address [address] [place] [id number] Care Team Providers Care Content Specialist Name Role Phone Brent Rubio MD Primary Care Provider Unav ailable Allergies Active Allergy Reactions Criticality Noted Date Comments [place] Oil Anaphylaxis High 02/09/2022 Cefdinir Diarrhea,Hives,Other (see [...] Sex Assigned at Female 06/20/2024 9:14 PM [employer] Legal Sex Female 8:21 PM CDT Gender Identity Not on file Sexual Orientation Not on file Last Filed Vital Signs Vital Sign Reading Time Taken Comments Blood Pressure 106/58 06/21/2024 1:00 AM [employer] Pulse 110 06/20/2024 9:05 PM [employer] Temperature 37.3 C (99.2 F) 06/20/2024 9:05 PM [employer] Respiratory Rate 18 06/20/2024 9:05 PM [employer] Oxygen Saturation 94% 06/21/2024 1:00 AM [employer] Inhaled Oxygen Concentration - - Weight 58.7 kg (129 lb 6.6 oz) 06/20/2024 9:05 P M [employer] Height 162.6 cm (5' 4) 06/20/2024 9:05 PM [employer] Body Mass Index 22.21 06/20/2024 9:05 PM [employer] Plan of Treatment Health Maintenance Due Date [...] to complete this topic Insurance Care Teams Content Specialist Relationship Specialty Start Date End Date Brent Rubio MD PCP - General 01/04/16
--- OUTSIDE RECORDS SUMMARY | 2024-11-20 16:54 | XMS_ITS | Clinical Summary ---
Author Organization [facility] Address [address] [place] [address] Phone Care Team Providers Care Barrel Washer Name Role Phone Jennifer Reyes Primary Care Provider +1- [phone] Allergies Active Allergy Reactions Criticality Noted Date [...] & Plan: Continue with care per lead medical technologist Otalgia of right ear 06/12/2021 Overview (12/11/2021): [...] Insurance [employer]NA [place]ICA[place] - [place] Care Teams Barrel Washer Relationship Specialty Start Date End Date Jennifer Reyes PA PCP - General Family Medicine 01/02/22
[2024-11-20 17:05] LABS: BEDSIDEPREGUCG Negative (Negative)
[2024-11-20 17:15] LABS: Add Urine Microscopic? YES; Appearance Urine Cloudy (Clear); Glucose Urine UA Negative (Negative); Leukocyte Esterase Ur Negative LEU/UL (Negative); Nitrate Urine Negative (Negative); Non Pathogenic Casts 0-2; Specific Grav Ur 1.008 (1.001-1.035)
--- OUTSIDE RECORDS SUMMARY | 2024-11-20 20:43 | XMS_ITS | Encounter Summary ---
Author Organization [facility] Health Address [address] [place] [address] Care Team Providers Care Rn Nursery Name Role Phone Denise Dyson APRN-GEOGRAPHY HEAD Primary Care Provider + Encounter Details Date Type Department Care Team (Late st Contact Info) Description 11/17/2024 Results Follow-Up [facility] [address] [place] [address] Crystal Kolb MD [address] [place] [address] Social History Tobacco Use Types [...] on file Legal Sex Female 5:40 AM MEDIA RELATIONS SPECIALIST Gender Identity Not on file Sexual Orientation Not on file documented as of this encounter Progress Notes * Crystal Kolb MD - 11/17/2024 10:29 AM CDT Your laboratory tests from [facility] ER visit from 11/16/2024 arrived to our office-reviewed as discussed over the phone documented in this encounter Plan of Treatment Not on file documented as of this encounter Visit Diagnoses Not on filedocumented in this encounter Care Teams Rn Nursery Relationship Specialty Start Date End Date Denise Dyson APRN-CNP [address] [phone] PCP - General Nurse Practitioner 03/25/23 documented as of this encounter
--- OUTSIDE RECORDS SUMMARY | 2024-11-20 20:43 | XMS_ITS | Encounter Summary ---
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
--- OUTSIDE RECORDS SUMMARY | 2024-11-20 20:43 | XMS_ITS | Encounter Summary ---
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 Gender Identity Not on file Sexual Orientation Not on file documented as of this encounter Progress Notes * Crystal Kolb MD - 11/17/2024 10:30 AM CDT Your results from [facility] ER visit from 11/16/2024 arrive to our office-reviewed as discussed over the phone documented in this encounter Plan of Treatment Not on file documented as of this encounter Visit Diagnoses Not on filedocumented in this encounter Care Teams Bundle Clerk Relationship Specialty Start Date End Date Denise Dyson APRN-CNP [address] [phone] PCP - General Nurse Practitioner 03/25/23 documented as of this encounter
--- OUTSIDE RECORDS SUMMARY | 2024-11-20 20:43 | XMS_ITS | Referral Summary ---
Author Organization [facility] Address [address] [place] [address] Care Team Providers Care Baker Head Name Role Phone Jennifer Reyes Primary Care Provider +1- [phone] Encounters Date Type Department Care Team Description 10/11/2024 2:15 PM CDT Office Visit [facility] [address] [place] [address] Health 7th Floor [address] [place] [address] Sara Alcala MD Endometriosis (Primary Dx); Chronic pelvic pain in female from Last 3 Months Allergies Active Allergy Reactions Criticality Noted Date Comments Adhesive Rash Medium 01/27/2024 [place] Oil Anaphylaxis High 02/09/2022 Cefdinir Hives,Diarrhea Medium [...] 06/12/2021 Assessment & Plan (06/12/2021 10:35 AM SEARCH COORDINATOR): Advised no drops in ear Advised wearing cotton in ear when showering for the next week Advised adding 500mg tylenol q6h prn pain to current ibuprofen regimen x 3d Advised f/u if not improving or if worsening over the next week Otalgia, right 06/12/2021 Assessment & Plan (06/12/2021 10:35 AM SEARCH COORDINATOR): Advised no drops in ear Advised wearing cotton in ear when showering for the next week Advised adding 500mg tylenol q6h prn pain to current ibuprofen regimen x 3d Advised f/u if not improving or if worsening over the next week Dermatitis 06/12/2021 Assessment & Plan (06/12/2021 10:36 AM SEARCH COORDINATOR): Will add steroid cream bid x 7 days. She was advised f/u in the next week if not improving, sooner if worsening. Tobacco use 06/12/2021 Assessment & Plan (06/12/2021 10:35 AM SEARCH COORDINATOR): Encouraged continued attempts at smoking cessation, discussed that the wellbutrin may benefit these attempts Moderate episode of recurrent major depressive d isorder 06/12/2021 Assessment & Plan (06/12/2021 10:36 AM SEARCH COORDINATOR): Continue with care per psychiatry Endometriosis 06/12/2021 Assessment & Plan (06/12/2021 10:36 AM SEARCH COORDINATOR): Continue with care per sulfur burner Psychogenic nonepileptic seizure 08/09/2020 Migraine without aura and wi thout status migrainosus, not intractable 04/23/2020 Episodes of decreased attentiveness 04/23/2020 Assessment & Plan (06/12/2021 10:36 AM SEARCH COORDINATOR): Continue with care per psychiatry Mild intermittent asthma 05/24/2018 Assessment & Plan (05/24/2018 4:45 AM SEARCH COORDINATOR): Present on admission, currently asymptomatic. -Albuterol PRN Multiple food allergies 05/24/2018 Assessment & Plan (05/24/2018 4:47 AM SEARCH COORDINATOR): Present on admission, currently asymptomatic. -Epinephrine 0.3mg IM PRN anaphylaxis Cervical pain (neck) 12/02/2016 Assessment & Plan (05/24/2018 4:47 AM SEARCH COORDINATOR): Present on admission. Given description as unilateral [...] on file Legal Sex Female 11:46 PM SEARCH COORDINATOR Gender Identity Not on file Sexual [...] Oxygen Saturation 99% 06/02/2022 10: 15 AM SEARCH COORDINATOR Inhaled Oxygen Concentration - - Weight 57.5 kg (126 lb 11.2 oz) 10/11/2024 2:18 PM CDT Height 162.6 cm (5' 4) 10/11/2024 2:18 PM CDT Body Mass Index 21.75 10/11/2024 2:18 PM CDT Plan of Treatment Not on file Insurance [employer] OPEN ACCESS CIGNA OPEN ACCESS AETNA [facility] [place] [address] [place] [address] OPEN ACCESS IDPA [facility] Advance Directives For more information, please contact: [phone] Documents on File Type Date Recorded Patient Dentist/Owner Expl anation ADVANCE DIRECTIVE 05/24/2018 12:50 AM * Full Code (Latest Code Status on File) Date Activated Date Inactivated Comments 06/27/2020 8:51 AM 06/30/2020 8:59 PM * Full Code Date Activated Date Inactivated Comments 05/24/2018 2:35 AM 05/25/2018 6:00 PM Care Teams Baker Head Relationship Specialty Start Date End Date Jennifer Reyes PA PCP - General Concrete Bucket Loader 06/12/21
--- OUTSIDE RECORDS SUMMARY | 2024-11-20 20:43 | XMS_ITS | Encounter Summary ---
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 Gender Identity Not on file Sexual Orientation Not on file documented as of this encounter Progress Notes * Crystal Kolb MD - 11/17/2024 10:30 AM CDT Your laboratory tests results from [facility] ER visit on 11/16/2024 arrive to our office-reviewed as discussed over the phone documented in this encounter Plan of Treatment Not on file documented as of this encounter Visit Diagnoses Not on filedocumented in this encounter Care Teams Blow Molding Machine Operator Relationship Specialty Start Date End Date Denise Dyson APRN-CNP [address] [phone] PCP - General Nurse Practitioner 03/25/23 documented as of this encounter
--- OUTSIDE RECORDS SUMMARY | 2024-11-20 20:43 | XMS_ITS | Clinical Summary ---
Author Organization [facility] Address [address] [place] [address] Care Team Providers Care Car Wash Supervisor Name Role Phone Jennifer Reyes Primary Care Provider +1- [phone] Allergies Active Allergy Reactions Criticality Noted Date Comments Adhesive Rash Medium 01/27/2024 [place] Oil Anaphylaxis High 02/09/2022 Cefdinir Hives,Diarrhea Medium [...] 06/12/2021 Assessment & Plan (06/12/2021 10:35 AM QUENCHING CAR OPERATOR): Advised no drops in ear Advised wearing cotton in ear when showering for the next week Advised adding 500mg tylenol q6h prn pain to current ibuprofen regimen x 3d Advised f/u if not improving or if worsening over the next week Otalgia, right 06/12/2021 Assessment & Plan (06/12/2021 10:35 AM QUENCHING CAR OPERATOR): Advised no drops in ear Advised wearing cotton in ear when showering for the next week Advised adding 500mg tylenol q6h prn pain to current ibuprofen regimen x 3d Advised f/u if not improving or if worsening over the next week Dermatitis 06/12/2021 Assessment & Plan (06/12/2021 10:36 AM QUENCHING CAR OPERATOR): Will add steroid cream bid x 7 days. She was advised f/u in the next week if not improving, sooner if worsening. Tobacco use 06/12/2021 Assessment & Plan (06/12/2021 10:35 AM QUENCHING CAR OPERATOR): Encouraged continued attempts at smoking cessation, discussed that the wellbutrin may benefit these attempts Moderate episode of recurrent major depressive d isorder 06/12/2021 Assessment & Plan (06/12/2021 10:36 AM QUENCHING CAR OPERATOR): Continue with care per psychiatry Endometriosis 06/12/2021 Assessment & Plan (06/12/2021 10:36 AM QUENCHING CAR OPERATOR): Continue with care per ob tech Psychogenic nonepileptic seizure 08/09/2020 Migraine without aura and wi thout status migrainosus, not intractable 04/23/2020 Episodes of decreased attentiveness 04/23/2020 Assessment & Plan (06/12/2021 10:36 AM QUENCHING CAR OPERATOR): Continue with care per psychiatry Mild intermittent asthma 05/24/2018 Assessment & Plan (05/24/2018 4:45 AM QUENCHING CAR OPERATOR): Present on admission, currently asymptomatic. -Albuterol PRN Multiple food allergies 05/24/2018 Assessment & Plan (05/24/2018 4:47 AM QUENCHING CAR OPERATOR): Present on admission, currently asymptomatic. -Epinephrine 0.3mg IM PRN anaphylaxis Cervical pain (neck) 12/02/2016 Assessment & Plan (05/24/2018 4:47 AM QUENCHING CAR OPERATOR): Present on admission. Given description as [...] CDT Office Visit [facility] [address] [facility] 7th Floor [address] [place] [address] Sara Alcala MD Endometriosis (Primary [...] on file Legal Sex Female 11:46 PM QUENCHING CAR OPERATOR Gender Identity Not on file Sexual [...] Oxygen Saturation 99% 06/02/2022 10: 15 AM QUENCHING CAR OPERATOR Inhaled Oxygen Concentration - - Weight 57.5 [...] CIGNA OPEN ACCESS CIGNA OPEN ACCESS AETNA [facility] [place] [address] [address] OPEN ACCESS IDPA [facility] Advance Directives For more information, please contact: [phone] Documents on File Type Date Recorded Patient Welfare Manager Expl anation ADVANCE DIRECTIVE 05/24/2018 12:50 AM * Full Code (Latest Code Status on File) Date Activated Date Inactivated Comments 06/27/2020 8:51 AM 06/30/2020 8:59 PM * Full Code Date Activated Date Inactivated Comments 05/24/2018 2:35 AM 05/25/2018 6:00 PM Care Teams Car Wash Supervisor Relationship Specialty Start Date End Date Jennifer Reyes PA PCP - General Shirt Trimmer 06/12/21
--- OUTSIDE RECORDS SUMMARY | 2024-11-20 20:43 | XMS_ITS | Clinical Summary ---
Author Organization [facility] Address [address] [place] [address] Phone Care Team Providers Care Oil Distributor Name Role Phone Jennifer Reyes Primary Care Provider +1- [phone] Allergies Active Allergy Reactions Criticality Noted Date [...] & Plan: Continue with care per lining cleaner Otalgia of right ear 06/12/2021 Overview (12/11/2021): [...] Insurance C[employer] - [place] Care Teams Oil Distributor Relationship Specialty Start Date End Date Jennifer Reyes PA PCP - General Family Medicine 01/02/22
--- OUTSIDE RECORDS SUMMARY | 2024-11-20 20:43 | XMS_ITS | Clinical Summary ---
Author Organization [facility] Address [address] [place] [address] Phone Care Team Providers Care Compensation Associate Name Role Phone Unavailable Primary Care Provider [...] 05/25/2020, 2018 Medical Devices Implanted Type Area Enterprise Integration Architect Device Identifier Shelf Expiration Date Model / Serial / Lot Barrier Interceed Adh 3x4in 4350 - [id number] Implanted:Qt y: 1 on 02/04/2024 by Rahul Kilgore MD at [facility] Adhesion Barrier N/A: Pelvis [employer] [id number] 04/26/2028 [id number] / / [id number] Barrier Interceed Adh 3x4in 4350 - [id number] Implanted:Qt y: 1 on 02/04/2024 by Rahul Kilgore MD at [facility] Adhesion Barrier N/A: Pelvis [employer] [id number] 04/26/2028 [id number] / / [id number] Insurance REPLACED BY [facility] OPEN ACCESS HMO RX [employer] Advance Directives For more information, please contact: [phone] * Full Code (Latest Code Status on File) Date Activated Date Inactivated Comments 02/04/2024 11:42 AM 02/04/2024 4:01 PM * Full Code Date Activated Date Inactivated Comments 02/04/2024 9:22 AM 02/04/2024 11:42 AM
--- OUTSIDE RECORDS SUMMARY | 2024-11-20 20:43 | XMS_ITS | Clinical Summary ---
Author Organization [facility] [employer] Address [address] [facility] [place] [address] Care Team Providers Care Appeals Nurse Name Role Phone Denise Dyson BARK TANNER-SENIOR PUBLICATIONS SPECIALIST Primary Care Provider + Source Comments [facility],non-owned Affiliates and Associated Physician Practices is amultiple site organization consisting of ambulatory clinics and hospital sitesin [place], [place], [place] and [place]. This disclosure is being madepursuant to the Care Everywhere program and may not contain all information available regarding this patient. 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 2023 Insomnia [...] Assessment & Plan: Continue with care per buying intern Last Assessment & Plan: Continue with care per buying intern Dermatitis 06/12/2021 02/03/2023 Overview (02/03/2023): Last Assessment [...] Description 11/17/2024 Results Follow-Up [facility] [address] [place] [address] Crystal Kolb MD 11/17/2024 Results Follow-Up [facility] [address] [place], [place] Crystal [place] MD 11/17/2024 Results Follow-Up [facility] [place], [place] Crystal [place] MD 11/17/2024 Results Follow-Up [facility] [address] [place], [place] [address]Crystal Gruber MD 09/01/2024 12:20 PM CDT Office Visit [facility] - Family Medicine [address] [place] [phone] Denise Dyson, BARK TANNER-SENIOR PUBLICATIONS SPECIALIST Encounter for medical examination to establish care [...] Immunization Administration Dates Next Due INFLUENZA A [id number] VACCINE 05/25/2020 INFLUENZA VACCINE, QUADR. 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 Gender Identity Not on file Sexual Orientation [...] 09/05/2024 11:07 PM CDT Performed at: - [address], [place] [id number] Merchandising Intern: Eloise Milian MD, Phone: [phone] us Denise Dyson APRN-SENIOR PUBLICATIONS SPECIALIST LAB - MICROBIOLOGY ORDER TU Final Result Performing Organization Address [facility] Co de Phone Number [facility] INSURANCE BILL [address] [place] [address] * HIV-1 HIV-2 ANTIBODY + HIV P24 AG PANEL (09/02/2024 2:47 PM CDT) Pathologist [facility] HIV Screen 4th Generation w Reflex Non Reactive Non Reactive [facility] INSURANCE BILL Comment: HIV-1/HIV-2 antibodies and HIV-1 p24 antigen were NOT detected. There is no laboratory evidence of HIV infection. HIV Negative Blood BLOOD SPECIMEN / Unknown 09/02/2024 2:47 PM CDT 09/02/2024 Narrative [facility] INSURANCE BILL - 09/03/2024 8:11 AM CDT Performed at: [address] [place] [id number] Merchandising Intern: Kevin Dan PhD, Phone: [phone] Denise Dyson APRN-[facility] LAB - CHEMISTRY ORDERABL ES Final Result Performing Organization Address [facility] de Phone Number [facility] INSURANCE BILL [address] [place] [address] * TSH HI LOW REFLEX FREE T4 (09/02/2024 2:47 PM CDT) [facility] TSH 1.850 0.450 - 4.500 uIU/mL [facility] INSURANCE BILL Blood BLOOD SPECIMEN / Unknown 09/02/2024 2:47 PM CDT 09/02/2024 Narrative [facility] INSURANCE BILL - 09/03/2024 8:11 AM CDT Performed at: [address] [id number] Merchandising Intern: Kevin Dan PhD, Phone: [phone] Denise Dyson BARK TANNER-[facility] LAB - CHEMISTRY ORDERABL ES Final Result Performing Organization Address [facility] Co de Phone Number [facility] INSURANCE BILL [address] [place] [address] * (ABNORMAL) VITAMIN D 25-HYDROXY (09/02/2024 2:47 PM CDT) Vitamin D, 25 Hydroxy 25.1(L) 30.0 - 100.0 ng/mL [facility] INSURANCE BILL Comment: Vitamin D deficiency has been defined by the Forman of Medicine and an Endocrine Society practice guideline as a level of serum 25-OH vitamin D less than 20 ng/mL (1,2). The Endocrine Society went on to further define vitamin D insufficiency as a level between 21 and 29 ng/mL (2). 1. IOM (Forman of Medicine). 2010. Dietary reference intakes for [...] 7:09 AM CDT Performed at: 01 - [address] [id number] Merchandising Intern: Kevin Dan PhD, Phone: [phone] Denise Dyson BARK TANNER-SENIOR PUBLICATIONS SPECIALIST LAB - CHEMISTRY ORDERABL ES Final Result [facility] INSURANCE BILL [address] [place] [address] * CBC WITH DIFFERENTIAL (09/02/2024 2:47 PM [...] 09/03/2024 7:09 AM CDT Performed at: [address] [id number] Merchandising Intern: Kevin Dan PhD, Phone: [phone] Denise Dyson BARK TANNER-SENIOR PUBLICATIONS SPECIALIST LAB - HEMATOLOGY ORDERAB LES Final Result [facility] INSURANCE BILL [address] [place] [address] * (ABNORMAL) COMPREHENSIVE METABOLIC PANEL (09/02/2024 2:47 PM CDT) [facility] Glucose 83 70 - 99 mg/dL [facility] [...] - 09/03/2024 8:11 AM CDT Performed at: [address] [place] [id number] Merchandising Intern: Kevin Dan PhD, Phone: [phone] us Denise Dyson BARK TANNER-SENIOR PUBLICATIONS SPECIALIST LAB - CHEMISTRY ORDERABL ES Final Result [facility] INSURANCE BILL [address] [place] [address] * HEPATITIS C ANTIBODY (09/02/2024 2:47 PM CDT) [facility] Hepatitis C Antibody Non Reactive Non Reactive [...] 7:09 AM CDT [facility] [address] [place], [place] [id number] Merchandising Intern: Kevin Dan PhD, Phone: [phone] Denise Dyson BARK TANNER-SENIOR PUBLICATIONS SPECIALIST LAB - CHEMISTRY ORDERABL ES Final Result [facility] INSURANCE BILL [address] [place] [address] * VITAMIN B12 (09/02/2024 2:46 PM CDT) [facility] Vitamin B12 485 232 - 1,245 pg/mL [facility] INSURANCE BILL Blood BLOOD SPECIMEN / Unknown 09/02/2024 2:46 PM CDT 09/02/2024 Narrative [facility] INSURANCE BILL - 09/03/2024 8:11 AM CDT Performed at: [facility] [address] [id number] Merchandising Intern: Kevin Dan PhD, Phone: [phone] Denise Dyson BARK TANNER-SENIOR PUBLICATIONS SPECIALIST LAB - CHEMISTRY ORDERABL ES Final Result Performing Organization Address [facility] Co de Phone Number [facility] INSURANCE BILL [address] [place] [address] from Last 3 Months Insurance [facility] Address: [facility] [id number] [phone] Care Teams Appeals Nurse Relationship Specialty Start Date End Date Denise Dyson, BARK TANNER-SENIOR PUBLICATIONS SPECIALIST [address] [place] [address] [place] [address] PCP - General Nurse Practitioner 03/25/23
--- OUTSIDE RECORDS SUMMARY | 2024-11-20 20:43 | XMS_ITS | Clinical Summary ---
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 Legal Sex Female 8:21 PM CDT Gender Identity Not on file Sexual Orientation Not on file Last Filed Vital Signs Vital Sign Reading Time Taken Comments Blood Pressure 106/58 06/21/2024 1:00 AM GRE INSTRUCTOR Pulse 110 06/20/2024 9:05 PM GRE INSTRUCTOR Temperature 37.3 C (99.2 F) 06/20/2024 9:05 PM GRE INSTRUCTOR Respiratory Rate 18 06/20/2024 9:05 PM GRE INSTRUCTOR Oxygen Saturation 94% 06/21/2024 1:00 AM GRE INSTRUCTOR Inhaled Oxygen Concentration - - Weight 58.7 kg (129 lb 6.6 oz) 06/20/2024 9:05 P M GRE INSTRUCTOR Height 162.6 cm (5' 4) 06/20/2024 9:05 PM GRE INSTRUCTOR Body Mass Index 22.21 06/20/2024 9:05 PM GRE INSTRUCTOR Plan of Treatment Health Maintenance Due Date [...] to complete this topic Insurance Care Teams Horse Racetrack Manager Relationship Specialty Start Date End Date Brent Rubio MD PCP - General 01/04/16
--- OUTSIDE RECORDS SUMMARY | 2024-11-20 20:43 | XMS_ITS | Clinical Summary ---
Author Organization 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
== END 2024-11-20 20:15 | disposition left against medical advice (07) ==
PROVIDERS: Emergency Provider Emergency Medicine; PCP Nurse Practitioner Family
DX: N93.9 Abnormal uterine and vaginal bleeding, unspecified (principal)
CPT/HCPCS: 81001; 81025; 99199

== ENCOUNTER 2024-11-29 08:55 | Outpatient (CLI) | payer OTHER, SELFPAY ==
--- OUTSIDE RECORDS SUMMARY | 2024-11-29 09:12 | XMS_ITS | Clinical Summary ---
Author Organization [facility] Address [address] [place] [address] Phone Care Team Providers Care Measurement Supervisor Name Role Phone Jennifer Reyes Primary Care Provider [phone] Allergies Active Allergy Reactions Criticality Noted Date [...] Assessment & Plan: Continue with care per supervisor dog license officer Otalgia of right ear 06/12/2021 Overview (12/11/2021): [...] Insurance [employer] [place] Care Teams Measurement Supervisor Relationship Specialty Start Date End Date Jennifer Reyes PA PCP - General Family Medicine 01/02/22
--- OUTSIDE RECORDS SUMMARY | 2024-11-29 09:12 | XMS_ITS | Patient Health Record ---
Author Organization [facility] Address [address] [facility] [address] [place] [address] Care Team Providers Care Technicians And Trades Workers Name Role Phone Herlinda Arriola Unavailable [phone] Allergies Allergen (clinical drug ingredient) Drug/Non Drug Allergy documented on EMR Reaction Allergy Type Onset Date Status TREE NUT (uncoded) Unknown Allergy 08/21/2023 Active escitalopram Lexapro Unknown Drug Allergy 08/21/2023 Act adam Omnicef Unknown Drug Allergy 08/21/2023 Active clindamycin Clindamycin Unknown Drug Allergy Act adam doxycycline Doxycycline Unknown Drug Allergy Act adam morphine Morphine Unknown Drug Allergy Active Reason For Referral No Information Medications Medication SIG (Take, Route, Fr equency, Duration) Notes Start Date End Date Status DULoxetine HCl 30 MG 1 capsule Orally On ce a day; Duration: 90 days Active lamoTRIgine 200 MG 1 tablet Oral Once a day; Duration: 90 days Active ARIPiprazole 10 MG 1 tablet Oral Once a day; Duration: 90 days Active hydrOXYzine HCl 10 MG 1 tablet Orally three times a day; Duration: 90 days As needed Active Immunizations Vaccine Route Administration Date Status Comme nts Novel [id number], preservative free Unknown 05/25/2020 Administered Pfizer Biontech [...] NoDo you have a medical power of claim attorney?: NoPublic Health and TravelHave you been [...] Problem Bipolar affective disorder, currently depressed, mild (584995168) Bipolar disorder, current episode depressed, mild (F31.31) 08/21/19 24 Active confirmed Problem Generalized anxiety disorder (77696807) Generalized anxiety disorder (F41.1) 08/21/19 24 Active confirmed Problem Posttraumatic stress disorder (57233116) Post-traumatic stress disorder, chronic (F43.12) 08/21/19 24 Active confirmed Problem Insomnia disorder related to another mental disorder (19132499) Insomnia due to other mental disorder (F51.05) 08/21/19 24 Active confirmed Problem Screening for cardiovascular system disease (036371652) Encounter for screening for cardiovascular disorders (Z13.6) Active confirmed Problem Long-term current use of drug therapy (189970720) 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 shaft repairer (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 (Z79.899) 08/21/19 24 Active confirmed Problem Depression Screening (910913502) Encounter for screening for depression (Z13.31) Active confirmed Problem Attention deficit hyperactivity disorder (382139929) ADHD (attention deficit hyperactivity disorder), combined type (F90.2) Active confirmed Problem Bipolar disorder (06803674) Bipolar depression (F31.9) Active confirmed Vital Signs Heart Rate 94 /min 11/22/2024 Respiratory Rate 18 /min 11/22/2024 Blood pressure diastolic 78 mm Hg 11/22/2024 Height-cm 162.56 cm 11/22/2024 Weight-kg 55.79 kg 11/22/2024 Height 64.00 in 11/22/2024 Blood pressure systolic 115 mm Hg 11/22/2024 Weight 123 lbs 11/22/2024 BMI 21.11 kg/m2 11/22/2024 Encounters Encounter Location Date Provider Diagnosis [facility] [employer] [facility] [address] [facility] [address] [address] 01/11/2024 Herlinda Arriola Bipolar disorder, current episode depressed, mild F31.31 ; Generalized anxiety disorder F41.1 ; Insomnia due to other mental disorder F51.05 ; Post-traumatic stress disorder, chronic F43.12 and Other intermediate (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 Z79.899 [facility] [employer] [facility] [address] [address] 02/01/2024 Herlinda Arriola Bipolar disorder, current episode depressed, mild F31.31 ; Generalized anxiety disorder F41.1 ; Insomnia due to other mental disorder F51.05 ; Post-traumatic stress disorder, chronic F43.12 and Other intermediate (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 Z79.899 [facility] [employer] [facility] [address] [address] 02/29/2024 Herlinda Arriola Bipolar disorder, current episode depressed, mild F31.31 ; Generalized anxiety disorder F41.1 ; Insomnia due to other mental disorder F51.05 ; Post-traumatic stress disorder, chronic F43.12 and Other shaft repairer (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 Z79.899 [facility] [employer] [facility] [address] [place] [address] [place] [address] 04/14/2024 Herlinda Arriola Bipolar disorder, current episode depressed, mild F31.31 ; Generalized anxiety disorder F41.1 ; Insomnia due to other mental disorder F51.05 ; Post-traumatic stress disorder, chronic F43.12 and Other shaft repairer (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 Z79.899 [facility] [employer] [facility] [address] [place] [address] [place] [address] 05/16/2024 Herlinda Therel Bipolar disorder, current episode depressed, mild F31.31 ; Generalized anxiety disorder F41.1 ; Insomnia due to other mental disorder F51.05 ; Post-traumatic stress disorder, chronic F43.12 and Other intermediate (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 Z79.899 [facility] [employer] [facility] [address] [place] [address] [place] [address] 06/02/2024 Herlinda Arriola Bipolar disorder, current episode depressed, mild F31.31 ; Generalized anxiety disorder F41.1 ; Insomnia due to other mental disorder F51.05 ; Post-traumatic stress disorder, chronic F43.12 and Other shaft repairer (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 Z79.899 [facility] [employer] [facility] [address] [facility] [address] [place] [address] 06/10/2024 Herlinda Thery Bipolar disorder, current episode depressed, mild F31.31 ; Generalized anxiety disorder F41.1 ; Insomnia due to other mental disorder F51.05 ; Post-traumatic stress disorder, chronic F43.12 and Other intermediate (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 Z79.899 [facility] [employer] [facility] [address] [place] [address] [place] [address] 06/24/2024 Herlinda Thery Bipolar disorder, current episode depressed, mild F31.31 ; Generalized anxiety disorder F41.1 ; Insomnia due to other mental disorder F51.05 ; Post-traumatic stress disorder, chronic F43.12 and Other intermediate (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 Z79.899 [facility] [employer], [facility] [address] [place] [address] [place] [address] 08/08/2024 Herlinda Therel Encounter for screen ing for depression Z13.31 ; Encounter for screening for cardiovascular disorders Z13.6 ; Bipolar disorder, current episode depressed, mild F31.31 ; Generalized anxiety disorder F41.1 ; Insomnia due to other mental disorder F51.05 ; Post-traumatic stress disorder, chronic F43.12 ; Other intermediate (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 Z79.899 and ADHD (attention deficit hyperactivity disorder), combined type F90.2 [facility] [employer] [place] [address] [place] [address] [place] [address] 08/23/2024 Herlinda Therel Encounter for screen ing for depression Z13.31 ; Encounter for screening for cardiovascular disorders Z13.6 ; Bipolar disorder, current episode depressed, mild F31.31 ; Generalized anxiety disorder F41.1 ; Insomnia due to other mental disorder F51.05 ; Post-traumatic stress disorder, chronic F43.12 ; Other shaft repairer (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 Z79.899 ; ADHD (attention deficit hyperactivity disorder), combined type F90.2 and Nicotine use Z72.0 [facility] [employer] [place] [address] [facility] [address] [place] [address] 09/16/2024 Herlinda Arriola [facility] [employer], [facility] [address] [facility] [address] [place] [address] 11/22/2024 Herlinda Therel Encounter for screen ing for depression Z13.31 ; Bipolar depression F31.9 ; Encounter for screening for cardiovascular disorders Z13.6 ; Generalized anxiety disorder F41.1 ; Insomnia due to other mental disorder F51.05 ; Post-traumatic stress disorder, chronic F43.12 ; Other intermediate (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 Z79.899 ; ADHD (attention deficit hyperactivity disorder), combined type F90.2 and Nicotine use Z72.0 [facility] [employer] [facility] [address] [facility] [address] [place] [address] 04/13/2024 Herlinda globa.lyel [facility], [place] [address] [place] [address] [place] [address] 05/16/2024 Herlinda Therel [facility] [employer], [facility] [address] [place] [address] [place] [address] 08/22/2024 Herlinda globa.lyel [facility] [address] [place] [address] [place] [address] 08/22/2024 Herlinda Tariqel [facility] [employer] [facility] [address] [place] [address] [place] [address] 08/22/2024 Herlinda Tariqel [facility] [employer] [facility] [address] [place] [address] [place] [address] 11/22/2024 Herlinda Flako Assessments Encounter Date Diagnosis (ICD [...] rx 4-5 days continue rx jaleel 05/19 https://www.[employer]/jhqhnvzk-nqi-tsvik psf-blhwadkkk-knlh/ Lamotrigine 100 mg - patient reported depression [...] FND 2. Generalized anxiety disorder -continue medications motor and generator brush maker PRESCRIBES Xanax - educated to take as [...] and educated on complaince rx jaleel 05/19 https://www.[employer]/spdlbkah-pnz-cocsx zeb-xhtaovmdo-ueyw/ Lamotrigine 100 mg - patient reported depression [...] FND 2. Generalized anxiety disorder -continue medications motor and generator brush maker PRESCRIBES Xanax - educated to take as [...] and educated on complaince rx jaleel 05/19 https://www.[employer]/sfazxzqz-quw-vgguf pee-uktynnjpf-yopl/ Lamotrigine 100 mg - patient reported depression [...] FND 2. Generalized anxiety disorder -continue medications motor and generator brush maker PRESCRIBES Xanax - educated to take as [...] panic and depression - schedule therapy KavithaEfrain nylajess requested to stop Prozac 20 mg daily [...] and educated on complaince rx jaleel 05/19 https://www.[employer]/etcstlxx-ltb-frrqb sfi-ygeyywjrb-vzgh/ Increase Lamotrigine 150 mg - patient reported [...] FND 2. Generalized anxiety disorder -continue medications motor and generator brush maker PRESCRIBES Xanax - educated to take as [...] and educated on complaince rx jaleel 05/19 https://www.[employer]/hfuyihld-inx-kudmv qcs-sjxvbtvvs-bbns/ Increase Lamotrigine 200 mg - patient reported [...] FND 2. Generalized anxiety disorder -continue medications motor and generator brush maker PRESCRIBES Xanax - educated to take as [...] and educated on complaince rx jaleel 05/19 https://www.[employer]/doodgxgo-aan-hxnea vtk-wwzozlbxq-imdf/ Lamotrigine 200 mg - patient reported depression [...] FND 2. Generalized anxiety disorder -continue medications motor and generator brush maker PRESCRIBES Xanax - educated to take as [...] and educated on complaince rx jaleel 05/19 https://www.[employer]/gxeagqtx-ccx-nqibo udg-zszexuwjm-kyur/ Lamotrigine 200 mg - patient reported depression [...] FND 2. Generalized anxiety disorder -continue medications motor and generator brush maker PRESCRIBES Xanax - educated to take as [...] rx jaleel 05/19 no refill needed today https://www.[employer]/jgjixypf-aqa-egqpx haz-yngyutjuy-qdco/ Lamotrigine 200 mg - patient reported depression [...] FND 2. Generalized anxiety disorder -continue medications motor and generator brush maker PRESCRIBES Xanax - educated to take as [...] and educated on complaince rx jaleel 05/19 https://www.[employer]/jsjvqufe-tru-xlfsq vem-hsfkmxalk-ugga/ Lamotrigine 200 mg - patient reported depression [...] FND 2. Generalized anxiety disorder -continue medications motor and generator brush maker PRESCRIBES Xanax - educated to take as [...] and educated on complaince rx jaleel 05/19 https://www.[employer]/yjjfsbnm-hnl-vawdr taw-ycenszoiu-plfw/ Lamotrigine 200 mg - schedule weekly appointment [...] FND 2. Generalized anxiety disorder -continue medications motor and generator brush maker PRESCRIBES Xanax - educated to take as [...] on rx . Long-term drug therapy - 11/22/2024 Encounter for screening for depression (ICD-10 - Z13.31) Learning About Depression Screening material was published 1. Bipolar I disorder, most recent episode depression - educated to take rx as prescribed restart Abilify 10 mg at bedtime- having increase depression, agiation continue rx and educated on complaince rx jaleel 05/19 https://www.[employer]/slneejlp-uwt-ssinh wtf-rekqyhdlu-mmkh/ Lamotrigine 200 mg - schedule weekly appointment [...] FND 2. Generalized anxiety disorder -continue medications motor and generator brush maker PRESCRIBES Xanax - educated to take as prescribed to help anxiety and panic hx Vistaril 10 mg- educated on rx Visatril 10 mg three times as needed for anxiety and panic- educated to take rx for anxiety discuss and educated on medication options Cymbalta 30 mg daily for depression and [...] 40 mg daily in am- Patient stopped after 2 weeks ago - had depression on rx 5. Nicotine use Smoking Education Do not smoke. Nicotine and other chemicals in cigarettes and cigars can cause lung damage. Ask your healthcare provider for information if you currently smoke and need help to quit. E-cigarettes or smokeless tobacco still contain nicotine. Talk to your healthcare provider before you use these products. education on decrease to stopping nicotine products and stop smoking hotline given -Quit - Yes [place] Tobacco Quitline Call a Smoking Quitline The [employer]'s Smoking Quitline, (3-385-32T-QUIT) Smokefree.gov, which connects you with your State's Quitline, (0-716-KLTBDEI) Veterans Smoking Quitline, (9-290-JFMQABM) 6. cannabis use Cannabis Use Education NO CONTROL SUBSTANCE PRESCRIBED BY SUBHA with cannabis use Recommend decrease/stop cannabis use as it can negatively impact mood, motivation, anxiety, sleep, focus/concentration/mem ory (vigilance, elasticity, processing and attention); can also contribute to development of psychosis. Recommend decrease/stop cannabis use as it may be negatively impacting mood, motivation, anxiety, sleep, focus; can also contribute to development of psychosis Cannabis/marijuana information: http_s://nagi.nih.gov/p ublications/drugfacts/c annabis-marijuana http_s://www.[employer]/soqsxduk-ktp-neim cuhd-xqeqgmngy-lhrd/ 11/22/2024 Bipolar depression (ICD-10 - F31.9) 1. Bipolar I disorder, most recent episode depression - educated to take rx as prescribed restart Abilify 10 mg at bedtime- having increase depression, agiation continue rx and educated on complaince rx jaleel 05/19 https://www.[employer]/dhlnclml-cai-nafly cqt-qchwmdqil-kmhf/ Lamotrigine 200 mg - schedule weekly appointment [...] FND 2. Generalized anxiety disorder -continue medications motor and generator brush maker PRESCRIBES Xanax - educated to take as prescribed to help anxiety and panic hx Vistaril 10 mg- educated on rx Visatril 10 mg three times as needed for anxiety and panic- educated to take rx for anxiety discuss and educated on medication options Cymbalta 30 mg daily for depression and [...] 40 mg daily in am- Patient stopped after 2 weeks ago - had depression on rx 5. Nicotine use Smoking Education Do not smoke. Nicotine and other chemicals in cigarettes and cigars can cause lung damage. Ask your healthcare provider for information if you currently smoke and need help to quit. E-cigarettes or smokeless tobacco still contain nicotine. Talk to your healthcare provider before you use these products. education on decrease to stopping nicotine products and stop smoking hotline given -Quit - Yes [place] Tobacco Quitline Call a Smoking Quitline The [employer]'s Smoking Quitline, (5-880-95R-QUIT) Smokefree.gov, which connects you with your State's Quitline, (4-616-JUDOIMA) Veterans Smoking Quitline, (8-638-YHMNQKY) 6. cannabis use Cannabis Use Education NO CONTROL SUBSTANCE PRESCRIBED BY SUBHA with cannabis use Recommend decrease/stop cannabis use as it can negatively impact mood, motivation, anxiety, sleep, focus/concentration/mem ory (vigilance, elasticity, processing and attention); can also contribute to development of psychosis. Recommend decrease/stop cannabis use as it may be negatively impacting mood, motivation, anxiety, sleep, focus; can also contribute to development of psychosis Cannabis/marijuana information: http_s://nagi.nih.gov/p ublications/drugfacts/c annabis-marijuana http_s://www.[employer]/vqfnvial-wcx-hrsc axhm-pprtfquwa-okwq/ 08/23/2024 Encounter for screening for cardiovascular disorders (ICD-10 - Z13.6) 1. Bipolar I disorder, most recent episode depression - educated to take rx as prescribed Abilify 10 mg at bedtime continue rx and educated on complaince rx jaleel 05/19 https://www.[employer]/kninoptx-xog-atcfx ujx-qubgjjqlk-wghh/ Lamotrigine 200 mg - schedule weekly appointment [...] FND 2. Generalized anxiety disorder -continue medications motor and generator brush maker PRESCRIBES Xanax - educated to take as [...] on rx . Long-term drug therapy - 11/22/2024 Encounter for screening for cardiovascular disorders (ICD-10 - Z13.6) 1. Bipolar I disorder, most recent episode depression - educated to take rx as prescribed restart Abilify 10 mg at bedtime- having increase depression, agiation continue rx and educated on complaince rx jaleel 05/19 https://www.[employer]/tavsougp-fyw-stawj slp-hnmcloazq-lvvc/ Lamotrigine 200 mg - schedule weekly appointment [...] FND 2. Generalized anxiety disorder -continue medications motor and generator brush maker PRESCRIBES Xanax - educated to take as prescribed to help anxiety and panic hx Vistaril 10 mg- educated on rx Visatril 10 mg three times as needed for anxiety and panic- educated to take rx for anxiety discuss and educated on medication options Cymbalta 30 mg daily for depression and [...] 40 mg daily in am- Patient stopped after 2 weeks ago - had depression on rx 5. Nicotine use Smoking Education Do not smoke. Nicotine and other chemicals in cigarettes and cigars can cause lung damage. Ask your healthcare provider for information if you currently smoke and need help to quit. E-cigarettes or smokeless tobacco still contain nicotine. Talk to your healthcare provider before you use these products. education on decrease to stopping nicotine products and stop smoking hotline given Quit - Yes [place] Tobacco Quitline Call a Smoking Quitline The [employer]'s Smoking Quitline, (6-842-92N-QUIT) Smokefree.gov, which connects you with your State's Quitline, (5-276-CSCOQCA) Veterans Smoking Quitline, (0-215-NZNJMGJ) 6. cannabis use Cannabis Use Education NO CONTROL SUBSTANCE PRESCRIBED BY SUBHA with cannabis use Recommend decrease/stop cannabis use as it can negatively impact mood, motivation, anxiety, sleep, focus/concentration/mem ory (vigilance, elasticity, processing and attention); can also contribute to development of psychosis. Recommend decrease/stop cannabis use as it may be negatively impacting mood, motivation, anxiety, sleep, focus; can also contribute to development of psychosis Cannabis/marijuana information: http_s://nagi.nih.gov/p ublications/drugfacts/c annabis-marijuana http_s://www.[employer]/ugdmgcnj-imc-otdn ctgz-yfwwhyiqj-ssiy/ 08/08/2024 Encounter for screening for cardiovascular disorders (ICD-10 - Z13.6) 1. Bipolar I disorder, most recent episode depression - educated to take rx as prescribed Abilify 10 mg at bedtime continue rx and educated on complaince rx jaleel 05/19 https://www.[employer]/bazfdtwx-gzk-qbrot nox-dzasibrnp-cltu/ Lamotrigine 200 mg - patient reported depression [...] FND 2. Generalized anxiety disorder -continue medications motor and generator brush maker PRESCRIBES Xanax - educated to take as [...] rx jaleel 05/19 no refill needed today https://www.[employer]/fvbqqnaa-ejn-brznn ryi-exgumajwo-djtt/ Lamotrigine 200 mg - patient reported depression [...] FND 2. Generalized anxiety disorder -continue medications motor and generator brush maker PRESCRIBES Xanax - educated to take as [...] and educated on complaince rx jaleel 05/19 https://www.[employer]/zaocqcrw-xtj-tlmer lce-hlmuhdvtw-hrpm/ Lamotrigine 200 mg - patient reported depression [...] FND 2. Generalized anxiety disorder -continue medications motor and generator brush maker PRESCRIBES Xanax - educated to take as [...] and educated on complaince rx jaleel 05/19 https://www.[employer]/tuowypme-mdz-zgfpf dmp-mofmwmfdb-babp/ Lamotrigine 200 mg - patient reported depression [...] FND 2. Generalized anxiety disorder -continue medications motor and generator brush maker PRESCRIBES Xanax - educated to take as [...] and educated on complaince rx jaleel 05/19 https://www.[employer]/jsyniuat-msa-nfbzh fot-bxlkxihgh-xplq/ Increase Lamotrigine 200 mg - patient reported [...] FND 2. Generalized anxiety disorder -continue medications motor and generator brush maker PRESCRIBES Xanax - educated to take as [...] and educated on complaince rx jaleel 05/19 https://www.[employer]/axlwivvt-yhu-ouqhs nja-btumbkwxo-dgdm/ Increase Lamotrigine 150 mg - patient reported [...] FND 2. Generalized anxiety disorder -continue medications motor and generator brush maker PRESCRIBES Xanax - educated to take as [...] and educated on complaince rx jaleel 05/19 https://www.[employer]/uydmgked-kyj-nwbnm mzn-najxydiez-jkno/ Lamotrigine 100 mg - patient reported depression [...] FND 2. Generalized anxiety disorder -continue medications motor and generator brush maker PRESCRIBES Xanax - educated to take as [...] and educated on complaince rx jaleel 05/19 https://www.[employer]/nscgtdbx-dho-aumxz uxt-apxoqtjug-rlxu/ Lamotrigine 100 mg - patient reported depression [...] FND 2. Generalized anxiety disorder -continue medications motor and generator brush maker PRESCRIBES Xanax - educated to take as [...] rx 4-5 days continue rx jaleel 05/19 https://www.[employer]/kzkfoije-etd-oleej cta-nlsvwtbem-fcke/ Lamotrigine 100 mg - patient reported depression [...] FND 2. Generalized anxiety disorder -continue medications motor and generator brush maker PRESCRIBES Xanax - educated to take as [...] rx 4-5 days continue rx jaleel 05/19 https://www.[employer]/uaprdwwh-gma-etyvl ncr-yfzndocfq-dexn/ Lamotrigine 100 mg - patient reported depression [...] FND 2. Generalized anxiety disorder -continue medications motor and generator brush maker PRESCRIBES Xanax - educated to take as [...] and educated on complaince rx jaleel 05/19 https://www.[employer]/ujaokgzh-fmi-vxrxf gwf-yizqvedug-kjyb/ Lamotrigine 100 mg - patient reported depression [...] FND 2. Generalized anxiety disorder -continue medications motor and generator brush maker PRESCRIBES Xanax - educated to take as [...] and educated on complaince rx jaleel 05/19 https://www.[employer]/uslaxasn-mos-qcrha vos-zctwkidrk-esyn/ Lamotrigine 100 mg - patient reported depression [...] FND 2. Generalized anxiety disorder -continue medications motor and generator brush maker PRESCRIBES Xanax - educated to take as [...] and educated on complaince rx jaleel 05/19 https://www.[employer]/pybztzue-diz-idguy ome-bdezabmnb-hyeu/ Increase Lamotrigine 150 mg - patient reported [...] FND 2. Generalized anxiety disorder -continue medications motor and generator brush maker PRESCRIBES Xanax - educated to take as [...] and educated on complaince rx jaleel 05/19 https://www.[employer]/tvviwsqt-qrl-hypxu mvp-btwkqegrv-cjmb/ Increase Lamotrigine 200 mg - patient reported [...] FND 2. Generalized anxiety disorder -continue medications motor and generator brush maker PRESCRIBES Xanax - educated to take as [...] and educated on complaince rx jaleel 05/19 https://www.[employer]/nqxdhihw-iaw-fbmhu cjj-gewqrrhik-cqhw/ Lamotrigine 200 mg - patient reported depression [...] FND 2. Generalized anxiety disorder -continue medications motor and generator brush maker PRESCRIBES Xanax - educated to take as [...] and educated on complaince rx jaleel 05/19 https://www.[employer]/gcwzzucl-jsy-raxrg fny-yeyrlkxgb-wlag/ Lamotrigine 200 mg - patient reported depression [...] FND 2. Generalized anxiety disorder -continue medications motor and generator brush maker PRESCRIBES Xanax - educated to take as [...] rx jaleel 05/19 no refill needed today https://www.[employer]/zbowmhgd-lmu-qnmur ahj-twpacynsi-fzdf/ Lamotrigine 200 mg - patient reported depression [...] FND 2. Generalized anxiety disorder -continue medications motor and generator brush maker PRESCRIBES Xanax - educated to take as [...] and educated on complaince rx jaleel 05/19 https://www.[employer]/tlmghegs-slc-csrld kpf-yxcvdogjh-blpq/ Lamotrigine 200 mg - patient reported depression [...] FND 2. Generalized anxiety disorder -continue medications motor and generator brush maker PRESCRIBES Xanax - educated to take as [...] and educated on complaince rx jaleel 05/19 https://www.[employer]/sjjdoydh-cgw-pkpza cra-lbeygsniu-cont/ Lamotrigine 200 mg - patient reported depression [...] FND 2. Generalized anxiety disorder -continue medications motor and generator brush maker PRESCRIBES Xanax - educated to take as [...] and educated on complaince rx jaleel 05/19 https://www.[employer]/dsttzrqe-cbj-bijtw vzl-qnwbwwqcg-zvyw/ Lamotrigine 200 mg - schedule weekly appointment [...] FND 2. Generalized anxiety disorder -continue medications motor and generator brush maker PRESCRIBES Xanax - educated to take as [...] on rx . Long-term drug therapy - 11/22/2024 Generalized anxiety disorder (ICD-10 - F41.1) Generalized [...] - educated to take rx as prescribed restart Abilify 10 mg at bedtime- having increase depression, agiation continue rx and educated on complaince rx jaleel 05/19 https://www.[employer]/dcdcibot-wbs-uubdd ppd-zscskzusm-craj/ Lamotrigine 200 mg - schedule weekly appointment [...] FND 2. Generalized anxiety disorder -continue medications motor and generator brush maker PRESCRIBES Xanax - educated to take as prescribed to help anxiety and panic hx Vistaril 10 mg- educated on rx Visatril 10 mg three times as needed for anxiety and panic- educated to take rx for anxiety discuss and educated on medication options Cymbalta 30 mg daily for depression and [...] 40 mg daily in am- Patient stopped after 2 weeks ago - had depression on rx 5. Nicotine use Smoking Education Do not smoke. Nicotine and other chemicals in cigarettes and cigars can cause lung damage. Ask your healthcare provider for information if you currently smoke and need help to quit. E-cigarettes or smokeless tobacco still contain nicotine. Talk to your healthcare provider before you use these products. education on decrease to stopping nicotine products and stop smoking hotline given Quit - Yes [place] Tobacco Quitline Call a Smoking Quitline The [employer]'s Smoking Quitline, (6-268-52B-QUIT) Smokefree.gov, which connects you with your State's Quitline, (4-889-WTNDSDO) Veterans Smoking Quitline, (4-793-TARRAOO) 6. cannabis use Cannabis Use Education NO CONTROL SUBSTANCE PRESCRIBED BY SUBHA with cannabis use Recommend decrease/stop cannabis use as it can negatively impact mood, motivation, anxiety, sleep, focus/concentration/mem ory (vigilance, elasticity, processing and attention); can also contribute to development of psychosis. Recommend decrease/stop cannabis use as it may be negatively impacting mood, motivation, anxiety, sleep, focus; can also contribute to development of psychosis Cannabis/marijuana information: http_s://nagi.nih.gov/p ublications/drugfacts/c annabis-marijuana http_s://www.[employer]/ngkhgvuk-chc-ubvg txam-marbbchqi-xfub/ 11/22/2024 Insomnia due to other mental disorder (ICD-10 - F51.05) 1. Bipolar I disorder, most recent episode depression - educated to take rx as prescribed restart Abilify 10 mg at bedtime- having increase depression, agiation continue rx and educated on complaince rx jaleel 05/19 https://www.[employer]/uordltvf-xkr-osokq dfu-osuooakbi-fbhe/ Lamotrigine 200 mg - schedule weekly appointment [...] FND 2. Generalized anxiety disorder -continue medications motor and generator brush maker PRESCRIBES Xanax - educated to take as prescribed to help anxiety and panic hx Vistaril 10 mg- educated on rx Visatril 10 mg three times as needed for anxiety and panic- educated to take rx for anxiety discuss and educated on medication options Cymbalta 30 mg daily for depression and [...] 40 mg daily in am- Patient stopped after 2 weeks ago - had depression on rx 5. Nicotine use Smoking Education Do not smoke. Nicotine and other chemicals in cigarettes and cigars can cause lung damage. Ask your healthcare provider for information if you currently smoke and need help to quit. E-cigarettes or smokeless tobacco still contain nicotine. Talk to your healthcare provider before you use these products. education on decrease to stopping nicotine products and stop smoking hotline given -Quit - Yes [place] Tobacco Quitline Call a Smoking Quitline The [employer]'s Smoking Quitline, (3-095-87P-QUIT) Smokefree.gov, which connects you with your State's Quitline, (5-906-ZIQNZWV) Veterans Smoking Quitline, (6-283-VVCBJFF) 6. cannabis use Cannabis Use Education NO CONTROL SUBSTANCE PRESCRIBED BY SUBHA with cannabis use Recommend decrease/stop cannabis use as it can negatively impact mood, motivation, anxiety, sleep, focus/concentration/mem ory (vigilance, elasticity, processing and attention); can also contribute to development of psychosis. Recommend decrease/stop cannabis use as it may be negatively impacting mood, motivation, anxiety, sleep, focus; can also contribute to development of psychosis Cannabis/marijuana information: http_s://nagi.nih.gov/p ublications/drugfacts/c annabis-marijuana http_s://www.[employer]/uiojdcmp-bxj-dqlr vpdt-ixdahelqw-ttmx/ 08/23/2024 Generalized anxiety disorder (ICD-10 - F41.1) [...] and educated on complaince rx jaleel 05/19 https://www.[employer]/lgjvobpb-diu-afcks qni-fswrpcvws-botp/ Lamotrigine 200 mg - schedule weekly appointment [...] FND 2. Generalized anxiety disorder -continue medications motor and generator brush maker PRESCRIBES Xanax - educated to take as [...] and educated on complaince rx jaleel 05/19 https://www.[employer]/vrfleabg-ztu-ebxff hzn-dssegydux-uwxu/ Lamotrigine 200 mg - patient reported depression [...] FND 2. Generalized anxiety disorder -continue medications motor and generator brush maker PRESCRIBES Xanax - educated to take as [...] rx jaleel 05/19 no refill needed today https://[employer]/fxfmlmrh-cnu-tsbnl alv-sxkpgslyo-rqab/ Lamotrigine 200 mg - patient reported depression [...] FND 2. Generalized anxiety disorder -continue medications motor and generator brush maker PRESCRIBES Xanax - educated to take as [...] and educated on complaince rx jaleel 05/19 https://www.[employer]/dgpqbkds-jkq-kmngn hvn-cdtlqbqpm-ipmx/ Lamotrigine 200 mg - patient reported depression [...] FND 2. Generalized anxiety disorder -continue medications motor and generator brush maker PRESCRIBES Xanax - educated to take as [...] and educated on complaince rx jaleel 05/19 https://www.[employer]/dkycdfdf-gnv-nqrgi nho-xttmuxgcs-endy/ Lamotrigine 200 mg - patient reported depression [...] FND 2. Generalized anxiety disorder -continue medications motor and generator brush maker PRESCRIBES Xanax - educated to take as [...] and educated on complaince rx jaleel 05/19 https://www.[employer]/fkbwgsmw-spw-hwjbr hce-vppobwvwn-wnkd/ Increase Lamotrigine 200 mg - patient reported [...] FND 2. Generalized anxiety disorder -continue medications motor and generator brush maker PRESCRIBES Xanax - educated to take as [...] and educated on complaince rx jaleel 05/19 https://www.[employer]/uvcmshly-wso-brgta ocb-dynqivwnx-fnpn/ Increase Lamotrigine 150 mg - patient reported [...] FND 2. Generalized anxiety disorder -continue medications motor and generator brush maker PRESCRIBES Xanax - educated to take as [...] and educated on complaince rx jaleel 05/19 https://www.[employer]/rvoxotea-jub-slcbw zod-ofovfxlso-dcsg/ Lamotrigine 100 mg - patient reported depression [...] FND 2. Generalized anxiety disorder -continue medications motor and generator brush maker PRESCRIBES Xanax - educated to take as [...] and educated on complaince rx jaleel 05/19 https://www.[employer]/cslkypmq-euh-idhyi tdq-tkkqdygim-rgeu/ Lamotrigine 100 mg - patient reported depression [...] FND 2. Generalized anxiety disorder -continue medications motor and generator brush maker PRESCRIBES Xanax - educated to take as [...] rx 4-5 days continue rx jaleel 05/19 https://[employer]/kxjjrqct-cke-knvuz jbf-faivepkji-rwll/ Lamotrigine 100 mg - patient reported depression [...] FND 2. Generalized anxiety disorder -continue medications motor and generator brush maker PRESCRIBES Xanax - educated to take as [...] 5. Long-term drug therapy - 01/11/2024 Other shaft repairer (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 (ICD-10 - Z79.899) Medication Refill: Care Instructions material was published, Medication Refill: Care Instructions material was published 1. Bipolar I disorder, most recent episode depression - educated to take rx as prescribed Abilify 10 mg at bedtime started 05/22/22- reported been off rx 4-5 days continue rx jaleel 05/19 https://www.[employer]/oudbxyue-fje-lmwyt zjk-xxubwklgc-acwr/ Lamotrigine 100 mg - patient reported depression [...] FND 2. Generalized anxiety disorder -continue medications motor and generator brush maker PRESCRIBES Xanax - educated to take as [...] Long-term drug therapy - 02/01/2024 Other intermediate (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 (ICD-10 - Z79.899) Medication Refill: Care Instructions material was published, Medication Refill: Care Instructions material was published 1. Bipolar I disorder, most recent episode depression - educated to take rx as prescribed Abilify 10 mg at bedtime started 05/22/22- continue rx and educated on complaince rx jaleel 05/19 https://www.[employer]/ximxmkxi-kqi-eyhvc ers-roumgjwtr-tgjx/ Lamotrigine 100 mg - patient reported depression [...] FND 2. Generalized anxiety disorder -continue medications motor and generator brush maker PRESCRIBES Xanax - educated to take as [...] 5. Long-term drug therapy - 02/29/2024 Other intermediate (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 (ICD-10 - Z79.899) Medication Refill: Care Instructions material was published, Medication Refill: Care Instructions material was published 1. Bipolar I disorder, most recent episode depression - educated to take rx as prescribed Abilify 10 mg at bedtime started 05/22/22- continue rx and educated on complaince rx jaleel 05/19 https://www.[employer]/odbruiai-hnn-bpsho wno-tkykrjtsk-metk/ Lamotrigine 100 mg - patient reported depression [...] FND 2. Generalized anxiety disorder -continue medications motor and generator brush maker PRESCRIBES Xanax - educated to take as [...] 5. Long-term drug therapy - 04/14/2024 Other shaft repairer (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 (ICD-10 - Z79.899) Medication Refill: Care Instructions material was published, Medication Refill: Care Instructions material was published 1. Bipolar I disorder, most recent episode depression - educated to take rx as prescribed Abilify 10 mg at bedtime started 05/22/22- continue rx and educated on complaince rx jaleel 05/19 https://www.[employer]/fiwxanzu-xxz-exldh doz-lqowgmrxf-xvcz/ Increase Lamotrigine 150 mg - patient reported [...] FND 2. Generalized anxiety disorder -continue medications motor and generator brush maker PRESCRIBES Xanax - educated to take as [...] 5. Long-term drug therapy - 05/16/2024 Other shaft repairer (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 (ICD-10 - Z79.899) Medication Refill: Care Instructions material was published, Medication Refill: Care Instructions material was published 1. Bipolar I disorder, most recent episode depression - educated to take rx as prescribed Abilify 10 mg at bedtime continue rx and educated on complaince rx jaleel 05/19 https://www.[employer]/mdgawjao-iuu-yvopy dxo-fiwkekndb-zklu/ Increase Lamotrigine 200 mg - patient reported [...] FND 2. Generalized anxiety disorder -continue medications motor and generator brush maker PRESCRIBES Xanax - educated to take as [...] 5. Long-term drug therapy - 06/02/2024 Other shaft repairer (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 (ICD-10 - Z79.899) Medication Refill: Care Instructions material was published, Medication Refill: Care Instructions material was published 1. Bipolar I disorder, most recent episode depression - educated to take rx as prescribed Abilify 10 mg at bedtime continue rx and educated on complaince rx jaleel 05/19 https://www.[employer]/jbhgqvgh-thh-ehkcz zle-wczowdtjm-xube/ Lamotrigine 200 mg - patient reported depression [...] FND 2. Generalized anxiety disorder -continue medications motor and generator brush maker PRESCRIBES Xanax - educated to take as [...] 5. Long-term drug therapy - 06/10/2024 Other intermediate (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 (ICD-10 - Z79.899) Medication Refill: Care Instructions material was published, Medication Refill: Care Instructions material was published 1. Bipolar I disorder, most recent episode depression - educated to take rx as prescribed Abilify 10 mg at bedtime continue rx and educated on complaince rx jaleel 05/19 https://[employer]/bzcicrwi-zgt-tifcu tbr-blllwnngd-aric/ Lamotrigine 200 mg - patient reported depression [...] FND 2. Generalized anxiety disorder -continue medications motor and generator brush maker PRESCRIBES Xanax - educated to take as [...] and educated on complaince rx jaleel 05/19 https://www.[employer]/ftcanhla-cuv-ztgxp plu-dubmuglgi-ropu/ Lamotrigine 200 mg - patient reported depression [...] FND 2. Generalized anxiety disorder -continue medications motor and generator brush maker PRESCRIBES Xanax - educated to take as [...] . Long-term drug therapy - 06/24/2024 Other intermediate (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 (ICD-10 - Z79.899) Medication Refill: Care Instructions material was published, Medication Refill: Care Instructions material was published 1. Bipolar I disorder, most recent episode depression - educated to take rx as prescribed Abilify 10 mg at bedtime continue rx and educated on complaince rx jaleel 05/19 no refill needed today https://www.[employer]/qjssionc-cuo-wlpxs gtw-bjamjyukf-tenj/ Lamotrigine 200 mg - patient reported depression [...] FND 2. Generalized anxiety disorder -continue medications motor and generator brush maker PRESCRIBES Xanax - educated to take as [...] and educated on complaince rx jaleel 05/19 https://www.[employer]/tihrxkqr-jib-vuefp sjd-iggcctsxi-zxci/ Lamotrigine 200 mg - schedule weekly appointment [...] FND 2. Generalized anxiety disorder -continue medications motor and generator brush maker PRESCRIBES Xanax - educated to take as [...] on rx . Long-term drug therapy - 11/22/2024 Post-traumatic stress disorder, chronic (ICD-10 - F43.12) Post-Traumatic Stress Disorder (PTSD): Care Instructions material was published, Post-Traumatic Stress Disorder (PTSD): Care Instructions material was published, Post-Traumatic Stress Disorder (PTSD): Care Instructions material was published 1. Bipolar I disorder, most recent episode depression - educated to take rx as prescribed restart Abilify 10 mg at bedtime- having increase depression, agiation continue rx and educated on complaince rx jaleel 05/19 https://www.[employer]/zdjijdzw-for-jhtzn wnv-tnudvsrab-ghci/ Lamotrigine 200 mg - schedule weekly appointment [...] FND 2. Generalized anxiety disorder -continue medications motor and generator brush maker PRESCRIBES Xanax - educated to take as prescribed to help anxiety and panic hx Vistaril 10 mg- educated on rx Visatril 10 mg three times as needed for anxiety and panic- educated to take rx for anxiety discuss and educated on medication options Cymbalta 30 mg daily for depression and [...] 40 mg daily in am- Patient stopped after 2 weeks ago - had depression on rx 5. Nicotine use Smoking Education Do not smoke. Nicotine and other chemicals in cigarettes and cigars can cause lung damage. Ask your healthcare provider for information if you currently smoke and need help to quit. E-cigarettes or smokeless tobacco still contain nicotine. Talk to your healthcare provider before you use these products. education on decrease to stopping nicotine products and stop smoking hotline given -Quit - Yes [place] Tobacco Quitline Call a Smoking Quitline The [employer]'s Smoking Quitline, (1-063-28T-QUIT) Smokefree.gov, which connects you with your State's Quitline, (9-254-MCHNSVE) Veterans Smoking Quitline, (6-300-BXZIMXI) 6. cannabis use Cannabis Use Education NO CONTROL SUBSTANCE PRESCRIBED BY SUBHA with cannabis use Recommend decrease/stop cannabis use as it can negatively impact mood, motivation, anxiety, sleep, focus/concentration/mem ory (vigilance, elasticity, processing and attention); can also contribute to development of psychosis. Recommend decrease/stop cannabis use as it may be negatively impacting mood, motivation, anxiety, sleep, focus; can also contribute to development of psychosis Cannabis/marijuana information: http_s://nagi.nih.gov/p ublications/drugfacts/c annabis-marijuana http_s://www.[employer]/tkceubzk-lfh-qlbt ndia-kkzeaagzg-umyk/ 11/22/2024 Other intermediate (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 (ICD-10 - Z79.899) Medication Refill: Care Instructions material was published, Medication Refill: Care Instructions material was published, Medication Refill: Care Instructions material was published 1. Bipolar I disorder, most recent episode depression - educated to take rx as prescribed restart Abilify 10 mg at bedtime- having increase depression, agiation continue rx and educated on complaince rx jaleel 05/19 https://www.[employer]/udxypcuf-xer-xslpf azm-crogzajda-ikot/ Lamotrigine 200 mg - schedule weekly appointment [...] FND 2. Generalized anxiety disorder -continue medications motor and generator brush maker PRESCRIBES Xanax - educated to take as prescribed to help anxiety and panic hx Vistaril 10 mg- educated on rx Visatril 10 mg three times as needed for anxiety and panic- educated to take rx for anxiety discuss and educated on medication options Cymbalta 30 mg daily for depression and [...] 40 mg daily in am- Patient stopped after 2 weeks ago - had depression on rx 5. Nicotine use Smoking Education Do not smoke. Nicotine and other chemicals in cigarettes and cigars can cause lung damage. Ask your healthcare provider for information if you currently smoke and need help to quit. E-cigarettes or smokeless tobacco still contain nicotine. Talk to your healthcare provider before you use these products. education on decrease to stopping nicotine products and stop smoking hotline given -Quit - Yes [place] Tobacco Quitline Call a Smoking Quitline The [employer]'s Smoking Quitline, (3-640-90R-QUIT) Smokefree.gov, which connects you with your State's Quitline, (3-670-PSYFCQY) Veterans Smoking Quitline, (1-788-XGEFIPL) 6. cannabis use Cannabis Use Education NO CONTROL SUBSTANCE PRESCRIBED BY SUBHA with cannabis use Recommend decrease/stop cannabis use as it can negatively impact mood, motivation, anxiety, sleep, focus/concentration/mem ory (vigilance, elasticity, processing and attention); can also contribute to development of psychosis. Recommend decrease/stop cannabis use as it may be negatively impacting mood, motivation, anxiety, sleep, focus; can also contribute to development of psychosis Cannabis/marijuana information: http_s://nagi.nih.gov/p ublications/drugfacts/c annabis-marijuana http_s://www.[employer]/cikhdpxr-fzw-vcng unqu-nfjoiesck-kbgt/ 08/23/2024 Post-traumatic stress disorder, chronic (ICD-10 - [...] and educated on complaince rx jaleel 05/19 https://www.[employer]/rxhoqoai-fee-ifgel suu-helupzfhd-ipzh/ Lamotrigine 200 mg - schedule weekly appointment [...] FND 2. Generalized anxiety disorder -continue medications motor and generator brush maker PRESCRIBES Xanax - educated to take as [...] . Long-term drug therapy - 08/08/2024 Other intermediate (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 (ICD-10 - Z79.899) Medication Refill: Care Instructions material was published, Medication Refill: Care Instructions material was published, Medication Refill: Care Instructions material was published 1. Bipolar I disorder, most recent episode depression - educated to take rx as prescribed Abilify 10 mg at bedtime continue rx and educated on complaince rx jaleel 05/19 https://www.[employer]/hxcywfja-bkf-bixtx gfh-msflhhuto-aayj/ Lamotrigine 200 mg - patient reported depression [...] FND 2. Generalized anxiety disorder -continue medications motor and generator brush maker PRESCRIBES Xanax - educated to take as [...] and educated on complaince rx jaleel 05/19 https://www.[employer]/fbbvxedj-upw-rncqo nqq-xfsjsxzlo-ptor/ Lamotrigine 200 mg - patient reported depression [...] FND 2. Generalized anxiety disorder -continue medications motor and generator brush maker PRESCRIBES Xanax - educated to take as [...] . Long-term drug therapy - 08/23/2024 Other intermediate (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 (ICD-10 - Z79.899) Medication Refill: Care Instructions material was published, Medication Refill: Care Instructions material was published, Medication Refill: Care Instructions material was published 1. Bipolar I disorder, most recent episode depression - educated to take rx as prescribed Abilify 10 mg at bedtime continue rx and educated on complaince rx jaleel 05/19 https://www.[employer]/elmqfyhn-ebi-alrwj cpg-pmxjzydaa-gola/ Lamotrigine 200 mg - schedule weekly appointment [...] FND 2. Generalized anxiety disorder -continue medications motor and generator brush maker PRESCRIBES Xanax - educated to take as [...] on rx . Long-term drug therapy - 11/22/2024 ADHD (attention deficit hyperactivity disorder), combined type (ICD-10 - F90.2) Attention Deficit Hyperactivity Disorder (ADHD) in Adults: Care Instructions material was published, Learning About Attention Deficit Hyperactivity Disorder (ADHD) in Adults material was published, Learning About Stimulant Medicines for Attention Deficit Hyperactivity Disorder (ADHD) material was published 1. Bipolar I disorder, most recent episode depression - educated to take rx as prescribed restart Abilify 10 mg at bedtime- having increase depression, agiation continue rx and educated on complaince rx jaleel 05/19 https://www.[employer]/ymnbpgli-otk-thqta qex-cgfbjbjep-doiw/ Lamotrigine 200 mg - schedule weekly appointment [...] FND 2. Generalized anxiety disorder -continue medications motor and generator brush maker PRESCRIBES Xanax - educated to take as prescribed to help anxiety and panic hx Vistaril 10 mg- educated on rx Visatril 10 mg three times as needed for anxiety and panic- educated to take rx for anxiety discuss and educated on medication options Cymbalta 30 mg daily for depression and [...] 40 mg daily in am- Patient stopped after 2 weeks ago - had depression on rx 5. Nicotine use Smoking Education Do not smoke. Nicotine and other chemicals in cigarettes and cigars can cause lung damage. Ask your healthcare provider for information if you currently smoke and need help to quit. E-cigarettes or smokeless tobacco still contain nicotine. Talk to your healthcare provider before you use these products. education on decrease to stopping nicotine products and stop smoking hotline given -Quit - Yes [place] Tobacco Quitline Call a Smoking Quitline The [employer]'s Smoking Quitline, (9-512-88O-QUIT) Smokefree.gov, which connects you with your State's Quitline, (3-960-VNLCNYI) Veterans Smoking Quitline, (9-637-SVNRAQO) 6. cannabis use Cannabis Use Education NO CONTROL SUBSTANCE PRESCRIBED BY SUBHA with cannabis use Recommend decrease/stop cannabis use as it can negatively impact mood, motivation, anxiety, sleep, focus/concentration/mem ory (vigilance, elasticity, processing and attention); can also contribute to development of psychosis. Recommend decrease/stop cannabis use as it may be negatively impacting mood, motivation, anxiety, sleep, focus; can also contribute to development of psychosis Cannabis/marijuana information: http_s://nagi.nih.gov/p ublications/drugfacts/c annabis-marijuana http_s://www.[employer]/rrjspecx-njk-xhvo jmnq-gakziqojs-qmar/ 11/22/2024 Nicotine use (ICD-10 - Z72.0) 1. Bipolar I disorder, most recent episode depression - educated to take rx as prescribed restart Abilify 10 mg at bedtime- having increase depression, agiation continue rx and educated on complaince rx jaleel 05/19 https://www.[employer]/xvzlvwjo-kxk-pzxtm fgv-oghnoaqpu-uysg/ Lamotrigine 200 mg - schedule weekly appointment [...] FND 2. Generalized anxiety disorder -continue medications motor and generator brush maker PRESCRIBES Xanax - educated to take as prescribed to help anxiety and panic hx Vistaril 10 mg- educated on rx Visatril 10 mg three times as needed for anxiety and panic- educated to take rx for anxiety discuss and educated on medication options Cymbalta 30 mg daily for depression and [...] 40 mg daily in am- Patient stopped after 2 weeks ago - had depression on rx 5. Nicotine use Smoking Education Do not smoke. Nicotine and other chemicals in cigarettes and cigars can cause lung damage. Ask your healthcare provider for information if you currently smoke and need help to quit. E-cigarettes or smokeless tobacco still contain nicotine. Talk to your healthcare provider before you use these products. education on decrease to stopping nicotine products and stop smoking hotline given -Quit - Yes [place] Tobacco Quitline Call a Smoking Quitline The National [employer]'s Smoking Quitline, (8-887-12C-QUIT) Smokefree.gov, which connects you with your State's Quitline, (3-322-AYHHGBJ) Veterans Smoking Quitline, (8-723-GXFKEJB) 6. cannabis use Cannabis Use Education NO CONTROL SUBSTANCE PRESCRIBED BY SUBHA with cannabis use Recommend decrease/stop cannabis use as it can negatively impact mood, motivation, anxiety, sleep, focus/concentration/mem ory (vigilance, elasticity, processing and attention); can also contribute to development of psychosis. Recommend decrease/stop cannabis use as it may be negatively impacting mood, motivation, anxiety, sleep, focus; can also contribute to development of psychosis Cannabis/marijuana information: http_s://nagi.nih.gov/p ublications/drugfacts/c annabis-marijuana http_s://www.[employer]/fakbmqxz-fsm-ydvz alew-klvrvrhwx-iuet/ 08/23/2024 ADHD (attention deficit hyperactivity disorder), combined [...] and educated on complaince rx jaleel 05/19 https://www.[employer]/muyxnxtf-nne-swjak zqb-joihrrclb-yelk/ Lamotrigine 200 mg - schedule weekly appointment [...] FND 2. Generalized anxiety disorder -continue medications motor and generator brush maker PRESCRIBES Xanax - educated to take as [...] and educated on complaince rx jaleel 05/19 https://www.[employer]/jxdhiobt-jjr-pstag uix-zfwxkwofy-lqzm/ Lamotrigine 200 mg - schedule weekly appointment [...] FND 2. Generalized anxiety disorder -continue medications motor and generator brush maker PRESCRIBES Xanax - educated to take as [...] rx 4-5 days continue rx jaleel 05/19 https://www.[employer]/tyqzxxhp-jra-mplyu dub-ycvopqyhp-pzfh/ Lamotrigine 100 mg - patient reported depression [...] FND 2. Generalized anxiety disorder -continue medications motor and generator brush maker PRESCRIBES Xanax - educated to take as [...] and educated on complaince rx jaleel 05/19 https://www.[employer]/xgxfumbv-xgh-kogbu wwz-cmqkftwjt-bzjk/ Lamotrigine 200 mg - patient reported depression [...] FND 2. Generalized anxiety disorder -continue medications motor and generator brush maker PRESCRIBES Xanax - educated to take as [...] in am . Long-term drug therapy - 11/22/2024 Other Bipolar Disorder: Care Instructions material was published, [...] - educated to take rx as prescribed restart Abilify 10 mg at bedtime- having increase depression, agiation continue rx and educated on complaince rx jaleel 05/19 https://www.[employer]/fvzjtdqj-hfu-efcun lib-bkpwelduk-uepl/ Lamotrigine 200 mg - schedule weekly appointment [...] FND 2. Generalized anxiety disorder -continue medications motor and generator brush maker PRESCRIBES Xanax - educated to take as prescribed to help anxiety and panic hx Vistaril 10 mg- educated on rx Visatril 10 mg three times as needed for anxiety and panic- educated to take rx for anxiety discuss and educated on medication options Cymbalta 30 mg daily for depression and [...] 40 mg daily in am- Patient stopped after 2 weeks ago - had depression on rx 5. Nicotine use Smoking Education Do not smoke. Nicotine and other chemicals in cigarettes and cigars can cause lung damage. Ask your healthcare provider for information if you currently smoke and need help to quit. E-cigarettes or smokeless tobacco still contain nicotine. Talk to your healthcare provider before you use these products. education on decrease to stopping nicotine products and stop smoking hotline given Quit - Yes [place] Tobacco Quitline Call a Smoking Quitline The National [employer]'s Smoking Quitline, (6-339-15K-QUIT) Smokefree.gov, which connects you with your State's Quitline, (2-719-IDVIYBJ) Veterans Smoking Quitline, (8-226-YMTEVCL) 6. cannabis use Cannabis Use Education NO CONTROL SUBSTANCE PRESCRIBED BY SUBHA with cannabis use Recommend decrease/stop cannabis use as it can negatively impact mood, motivation, anxiety, sleep, focus/concentration/mem ory (vigilance, elasticity, processing and attention); can also contribute to development of psychosis. Recommend decrease/stop cannabis use as it may be negatively impacting mood, motivation, anxiety, sleep, focus; can also contribute to development of psychosis Cannabis/marijuana information: http_s://nagi.nih.gov/p ublications/drugfacts/c annabis-marijuana http_s://www.[employer]/iqrecclf-zgc-xqtu mdpy-sqgoykzhs-gfze/ Plan Of Treatment No Information Insurance Providers Payer Name Payer Address Payer Phone Subscriber Number Group Number Insured Name Patient Relationship to Insured Coverage Start Date Coverage End Date Cigna [address] [place] [address] [id number] TRAVIS MACHADO Child - Insured has Financial [...]
--- OUTSIDE RECORDS SUMMARY | 2024-11-29 09:13 | XMS_ITS | Referral Summary ---
Author Organization [facility] Address [address] [place] [address] Care Team Providers Care Progressive Care Unit Registered Nurse Name Role Phone Jennifer Reyes Primary Care Provider [phone] Encounters Date Type Department Care Team Description 11/25/2024 Telephone [facility] Obstetrics and Gynecology [address] [place] [address] Floor [address] [place] [phone] Sara Lassiter Scheduling Appointments 11/25/2024 Telephone [facility] Minimally Invasive Surgery [address] [place] [address] Floor [address] [place] [phone] Sara Alcala MD Follow-up 10/11/2024 2:15 PM CDT Office Visit [facility] Minimally Invasive Surgery [address] [place] [address] Floor [address] [place] [phone] Sara Alcala MD Endometriosis (Primary Dx); Chronic pelvic pain in female from Last 3 Months Allergies Active Allergy Reactions Criticality Noted Date Comments Adhesive Rash Medium 01/27/2024 [place] Oil Anaphylaxis High 02/09/2022 Cefdinir Hives,Diarrhea Medium [...] 06/12/2021 Assessment & Plan (06/12/2021 10:35 AM INVESTIGATIVE AGENT): Advised no drops in ear Advised wearing cotton in ear when showering for the next week Advised adding 500mg tylenol q6h prn pain to current ibuprofen regimen x 3d Advised f/u if not improving or if worsening over the next week Otalgia, right 06/12/2021 Assessment & Plan (06/12/2021 10:35 AM INVESTIGATIVE AGENT): Advised no drops in ear Advised wearing cotton in ear when showering for the next week Advised adding 500mg tylenol q6h prn pain to current ibuprofen regimen x 3d Advised f/u if not improving or if worsening over the next week Dermatitis 06/12/2021 Assessment & Plan (06/12/2021 10:36 AM INVESTIGATIVE AGENT): Will add steroid cream bid x 7 days. She was advised f/u in the next week if not improving, sooner if worsening. Tobacco use 06/12/2021 Assessment & Plan (06/12/2021 10:35 AM INVESTIGATIVE AGENT): Encouraged continued attempts at smoking cessation, discussed that the wellbutrin may benefit these attempts Moderate episode of recurrent major depressive d isorder 06/12/2021 Assessment & Plan (06/12/2021 10:36 AM INVESTIGATIVE AGENT): Continue with care per psychiatry Endometriosis 06/12/2021 Assessment & Plan (06/12/2021 10:36 AM INVESTIGATIVE AGENT): Continue with care per educational institution curator Psychogenic nonepileptic seizure 08/09/2020 Migraine without aura and wi thout status migrainosus, not intractable 04/23/2020 Episodes of decreased attentiveness 04/23/2020 Assessment & Plan (06/12/2021 10:36 AM INVESTIGATIVE AGENT): Continue with care per psychiatry Mild intermittent asthma 05/24/2018 Assessment & Plan (05/24/2018 4:45 AM INVESTIGATIVE AGENT): Present on admission, currently asymptomatic. -Albuterol PRN Multiple food allergies 05/24/2018 Assessment & Plan (05/24/2018 4:47 AM INVESTIGATIVE AGENT): Present on admission, currently asymptomatic. -Epinephrine 0.3mg IM PRN anaphylaxis Cervical pain (neck) 12/02/2016 Assessment & Plan (05/24/2018 4:47 AM INVESTIGATIVE AGENT): Present on admission. 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 Not on file Not on file Not on file Last Filed Vital Signs Vital Sign Reading Time Taken Comments Blood Pressure 115/70 10/11/2024 2:18 PM CDT Pulse 82 01/27/2023 2:59 PM CDT Temperature 37.1 C (98.8 F) 01/27/2023 2:59 PM CDT Respiratory Rate 16 01/27/2023 2:59 PM CDT Oxygen Saturation 99% 06/02/2022 10: 15 AM INVESTIGATIVE AGENT Inhaled Oxygen Concentration - - Weight 57.5 kg (126 lb 11.2 oz) 10/11/2024 2:18 PM CDT Height 162.6 cm (5' 4) 10/11/2024 2:18 PM CDT Body Mass Index 21.75 10/11/2024 2:18 PM CDT Plan of Treatment Not on file Insurance BOND OPEN ACCESS BOND OPEN ACCESS AETNA [facility] IDPA [facility] E Bailee [address] OPEN ACCESS IDPA [facility] PLAN [facility] Advance Directives For more information, please contact: [phone] Documents on File Type Date Recorded Patient Packaging Designer Expl anation ADVANCE DIRECTIVE 05/24/2018 12:50 AM * Full Code (Latest Code Status on File) Date Activated Date Inactivated Comments 06/27/2020 8:51 AM 06/30/2020 8:59 PM * Full Code Date Activated Date Inactivated Comments 05/24/2018 2:35 AM 05/25/2018 6:00 PM Care Teams Progressive Care Unit Registered Nurse Relationship Specialty Start Date End Date Jennifer Reyes PA PCP - General Feed Mill Supervisor 06/12/21
--- OUTSIDE RECORDS SUMMARY | 2024-11-29 09:13 | XMS_ITS | Clinical Summary ---
Author Organization [facility] Address [address] [place] [address] Care Team Providers Care Geothermal Hvac Technician Name Role Phone Denise Dyson WOOD CARVING MACHINE OPERATOR-LINEN TECH Primary Care Provider + Source Comments [facility],non-owned Affiliates and Associated Physician Practices is amultiple site organization consisting of ambulatory clinics and hospital sitesin [place], [place], [place] and [place]. This disclosure is being madepursuant to the Care Everywhere program and may not contain all information available regarding this patient. Last updated 18.[facility] Allergies Active Allergy Reactions Criticality Noted Date Comments Adhesive Sensitivity Rash Medium 01/27/2024 [place] Oil Anaphylaxis High 02/09/2022 Cefdinir Diarrhea,Other,Urtic ar [...] stress disorder) 09/01/2024 Bipolar affective disorder 12/24/2023 watermelon inspector current use of therapeutic drug 2023 [...] Assessment & Plan: Continue with care per employment appeals examiner Last Assessment & Plan: Continue with care per employment appeals examiner Dermatitis 06/12/2021 02/03/2023 Overview (02/03/2023): Last Assessment [...] Description 11/17/2024 Results Follow-Up [facility] [address] [place] [address] Crystal Kolb MD 11/17/2024 Results Follow-Up [facility] [address] [place], [place] Crystal Jeffrey MD 11/17/2024 Results Follow-Up [facility] [place], [place] Crystal Jeffrey MD 11/17/2024 Results Follow-Up [facility] [address] [place], [place] [address]Crystal Gruber MD 09/01/2024 12:20 PM CDT Office Visit [facility] [address] [place] [phone] Denise Dyson, WOOD CARVING MACHINE OPERATOR-LINEN TECH Encounter for medical examination to establish care [...] Immunization Administration Dates Next Due INFLUENZA A [id number] VACCINE 05/25/2020 INFLUENZA VACCINE, QUADR. (F LUZONE; [...] on file Legal Sex Female 5:40 AM COUGAR HUNTER Gender Identity Not on file Sexual Orientation [...] 09/05/2024 11:07 PM CDT Performed at: - Lab[address], [place] [id number] Sales Representative Cash Registers: Eloise Milian MD, Phone: [phone] us Denise Dyson APRN-LINEN TECH LAB - MICROBIOLOGY ORDER TU Final Result Performing Organization Address [facility] Co de Phone Number [facility] INSURANCE BILL [address] [place] [address] * HIV-1 HIV-2 ANTIBODY + HIV P24 [...] - 09/03/2024 8:11 AM CDT Performed at: [address] [place] [id number] Sales Representative Cash Registers: Kevin Dan PhD, Phone: [phone] Denise Dyson APRN-[facility] LAB - CHEMISTRY ORDERABL ES Final Result Performing Organization Address [facility] de Phone Number [facility] INSURANCE BILL [address] [place] [address] * TSH HI LOW REFLEX FREE T4 (09/02/2024 2:47 PM CDT) [facility] TSH 1.850 0.450 - 4.500 uIU/mL [facility] INSURANCE BILL Blood BLOOD SPECIMEN / Unknown 09/02/2024 2:47 PM CDT 09/02/2024 Narrative [facility] INSURANCE BILL - 09/03/2024 8:11 AM CDT Performed at: [address] [id number] Sales Representative Cash Registers: Kevin Dna PhD, Phone: [phone] Denise Dyson WOOD CARVING MACHINE OPERATOR-[facility] LAB - CHEMISTRY ORDERABL ES Final Result Performing Organization Address [facility] Co de Phone Number [facility] INSURANCE BILL [address] [place] [address] * (ABNORMAL) VITAMIN D 25-HYDROXY (09/02/2024 2:47 PM CDT) Vitamin D, 25 Hydroxy 25.1(L) 30.0 - 100.0 ng/mL [facility] INSURANCE BILL Comment: Vitamin D deficiency has been defined by the [place] of Medicine and an Endocrine Society practice guideline as a level of serum 25-OH vitamin D less than 20 ng/mL (1,2). The Endocrine Society went on to further define vitamin D insufficiency as a level between 21 and 29 ng/mL (2). 1. IOM ([place] of Medicine). 2010. Dietary reference intakes for [...] 7:09 AM CDT Performed at: 01 - Lab[address] [id number] Sales Representative Cash Registers: Kevin Dan PhD, Phone: [phone] Denise Dyson WOOD CARVING MACHINE OPERATOR-LINEN TECH LAB - CHEMISTRY ORDERABL ES Final Result [facility] INSURANCE BILL [address] [place] [address] * CBC WITH DIFFERENTIAL (09/02/2024 2:47 PM [...] 09/03/2024 7:09 AM CDT Performed at: [address] [id number] Sales Representative Cash Registers: Kevin Dan PhD, Phone: [phone] Denise Dyson WOOD CARVING MACHINE OPERATOR-LINEN TECH LAB - HEMATOLOGY ORDERAB LES Final Result [facility] INSURANCE BILL [address] [place] [address] * (ABNORMAL) COMPREHENSIVE METABOLIC PANEL (09/02/2024 2:47 PM CDT) [facility] Glucose 83 70 - 99 mg/dL [...] - 09/03/2024 8:11 AM CDT Performed at: [address] [place] [id number] Sales Representative Cash Registers: Kevin Dan PhD, Phone: [phone] us Denise Dyson WOOD CARVING MACHINE OPERATOR-LINEN TECH LAB - CHEMISTRY ORDERABL ES Final Result [facility] INSURANCE BILL [address] [place] [address] * HEPATITIS C ANTIBODY (09/02/2024 2:47 PM CDT) [facility] Hepatitis C Antibody Non Reactive Non [...] 7:09 AM CDT [facility]formed [facility]: [facility] [address] [place], [place] [id number] Sales Representative Cash Registers: Kevin Dan PhD, Phone: [phone] Denise Dyson WOOD CARVING MACHINE OPERATOR-LINEN TECH LAB - CHEMISTRY ORDERABL ES Final Result [facility] INSURANCE BILL [address] [place] [address] * VITAMIN B12 (09/02/2024 2:46 PM CDT) [facility] Vitamin B12 485 232 - 1,245 pg/mL [facility] INSURANCE BILL Blood BLOOD SPECIMEN / Unknown 09/02/2024 2:46 PM CDT 09/02/2024 Narrative [facility] INSURANCE BILL - 09/03/2024 8:11 AM CDT Performed at: [facility] Lab[address] [id number] Sales Representative Cash Registers: Kevin Dan PhD, Phone: [phone] Denise Dyson WOOD CARVING MACHINE OPERATOR-LINEN TECH LAB - CHEMISTRY ORDERABL ES Final Result Performing Organization Address [facility] Co de Phone Number [facility] INSURANCE BILL [address] [place] [address] from Last 3 Months Insurance [facility] Care Teams Geothermal Hvac Technician Relationship Specialty Start Date End Date Denise Dyson, WOOD CARVING MACHINE OPERATOR-LINEN TECH [address] [place] [address] [place] [phone] PCP - General Nurse Practitioner 03/25/23
--- OUTSIDE RECORDS SUMMARY | 2024-11-29 09:13 | XMS_ITS | Encounter Summary ---
Author Organization [facility] Health Address [address] [place] [address] Care Team Providers Care Carbide Tool Die Maker Name Role Phone Denise Dyson APRN-SENIOR STACK ENGINEER Primary Care Provider + Encounter Details Date Type Department Care Team (Late st Contact Info) Description 11/17/2024 Results Follow-Up [facility] [address] [place] [address] Crystal Kolb MD [address] [place] [address] Social History Tobacco Use Types [...] on file Legal Sex Female 5:40 AM VISUAL MERCHANDISING COORDINATOR Gender Identity Not on file Sexual Orientation Not on file documented as of this encounter Progress Notes * Crystal Kolb MD - 11/17/2024 10:30 AM CDT Your laboratory tests results from [facility] ER visit on 11/16/2024 arrive to our office-reviewed as discussed over the phone documented in this encounter Plan of Treatment Not on file documented as of this encounter Visit Diagnoses Not on filedocumented in this encounter Care Teams Carbide Tool Die Maker Relationship Specialty Start Date End Date Denise Dyson APRN-CNP [address] [phone] PCP - General Nurse Practitioner 03/25/23 documented as of this encounter
--- OUTSIDE RECORDS SUMMARY | 2024-11-29 09:13 | XMS_ITS | Encounter Summary ---
Author Organization [facility] Health Address [address] [place] [address] Care Team Providers Care Parent Aide Name Role Phone Denise Dyson APRN-OLVIN Primary Care Provider + Encounter Details Date Type Department Care Team (Late st Contact Info) Description 11/17/2024 Results Follow-Up [facility] [address] [place] [address] Crystal Kolb MD [address] [place] [address] Social History Tobacco Use Types [...] file Legal Sex Female 5:40 AM MEDIA JOB TITLES Gender Identity Not on file Sexual Orientation Not on file documented as of this encounter Progress Notes * Crystal Kolb MD - 11/17/2024 10:18 AM CDT Please review laboratory tests in MyChart: test negative documented in this encounter Plan of Treatment Not on file documented as of this encounter Visit Diagnoses Not on filedocumented in this encounter Care Teams Parent Aide Relationship Specialty Start Date End Date Denise Dyson APRN-CNP [address] [address] [place] [phone] PCP - General Nurse Practitioner 03/25/23 documented as of this encounter
--- OUTSIDE RECORDS SUMMARY | 2024-11-29 09:13 | XMS_ITS | Encounter Summary ---
Author Organization [facility] Health Address [address] [place] [address] Care Team Providers Care Creamery Worker Name Role Phone Denise Dyson APRN-CONSTRUCTION CONSULTANT Primary Care Provider + Encounter Details Date Type Department Care Team (Late st Contact Info) Description 11/17/2024 Results Follow-Up [facility] [address] [place] [address] Crystal Kolb MD [address] [place] [address] Social History Tobacco Use Types [...] on file Legal Sex Female 5:40 AM FLIGHT INSTRUCTOR Gender Identity Not on file Sexual Orientation Not on file documented as of this encounter Progress Notes * Crystal Kolb MD - 11/17/2024 10:29 AM CDT Your laboratory tests from [facility] ER visit from 11/16/2024 arrived to our office-reviewed as discussed over the phone documented in this encounter Plan of Treatment Not on file documented as of this encounter Visit Diagnoses Not on filedocumented in this encounter Care Teams Creamery Worker Relationship Specialty Start Date End Date Denise Dyson APRN-CNP [address] [phone] PCP - General Nurse Practitioner 03/25/23 documented as of this encounter
--- OUTSIDE RECORDS SUMMARY | 2024-11-29 09:13 | XMS_ITS | Encounter Summary ---
Author Organization [facility] Health Address [address] [place] [address] Care Team Providers Care Stiff Leg Operator Name Role Phone Denise Dyson APRN-UNIT TRUST MANAGER Primary Care Provider + Encounter Details Date Type Department Care Team (Late st Contact Info) Description 11/17/2024 Results Follow-Up [facility] [address] [place] [address] Crystal Kolb MD [address] [place] [address] Social History Tobacco Use Types [...] on file Legal Sex Female 5:40 AM WIDE AREA NETWORK SYSTEMS ADMINISTRATOR Gender Identity Not on file Sexual Orientation Not on file documented as of this encounter Progress Notes * Crystal Kolb MD - 11/17/2024 10:30 AM CDT Your results from [facility] ER visit from 11/16/2024 arrive to our office-reviewed as discussed over the phone documented in this encounter Plan of Treatment Not on file documented as of this encounter Visit Diagnoses Not on filedocumented in this encounter Care Teams Stiff Leg Operator Relationship Specialty Start Date End Date Denise Dyson APRN-CNP [address] [phone] PCP - General Nurse Practitioner 03/25/23 documented as of this encounter
--- OUTSIDE RECORDS SUMMARY | 2024-11-29 09:13 | XMS_ITS | Clinical Summary ---
Author Organization [facility] Address [address] [place] [address] Phone Care Team Providers Care Regional Marketing Director Name Role Phone Unavailable Primary Care [...] 05/25/2020, 2018 Medical Devices Implanted Type Area Software Security Architect Device Identifier Shelf Expiration Date Model / Serial / Lot Barrier Interceed Adh 3x4in 4350 - [id number] Implanted:Qt y: 1 on 02/04/2024 by Rahul Kilgore MD at [facility] Adhesion Barrier N/A: Pelvis [employer] [id number] 04/26/2028 4350 / / [id number] Barrier Interceed Adh 3x4in 4350 - [id number] Implanted:Qt y: 1 on 02/04/2024 by Rahul Kilgore MD at [facility] Adhesion Barrier N/A: Pelvis [employer] [id number] 04/26/2028 4350 / / [id number] Insurance [facility] OPEN ACCESS HMO RX [employer] Express Advance Directives For more information, please contact: [phone] * Full Code (Latest Code Status on File) Date Activated Date Inactivated Comments 02/04/2024 11:42 AM 02/04/2024 4:01 PM * Full Code Date Activated Date Inactivated Comments 02/04/2024 9:22 AM 02/04/2024 11:42 AM
--- OUTSIDE RECORDS SUMMARY | 2024-11-29 09:13 | XMS_ITS | Clinical Summary ---
Author Organization [facility] Address [address] [place] [address] Care Team Providers Care Meat Inspector Name Role Phone Jennifer Reyes Primary Care Provider +1- [phone] Allergies Active Allergy Reactions Criticality Noted Date Comments Adhesive Rash Medium 01/27/2024 [place] Oil Anaphylaxis High 02/09/2022 Cefdinir Hives,Diarrhea Medium [...] 06/12/2021 Assessment & Plan (06/12/2021 10:35 AM CLIP RIVETER): Advised no drops in ear Advised wearing cotton in ear when showering for the next week Advised adding 500mg tylenol q6h prn pain to current ibuprofen regimen x 3d Advised f/u if not improving or if worsening over the next week Otalgia, right 06/12/2021 Assessment & Plan (06/12/2021 10:35 AM CLIP RIVETER): Advised no drops in ear Advised wearing cotton in ear when showering for the next week Advised adding 500mg tylenol q6h prn pain to current ibuprofen regimen x 3d Advised f/u if not improving or if worsening over the next week Dermatitis 06/12/2021 Assessment & Plan (06/12/2021 10:36 AM CLIP RIVETER): Will add steroid cream bid x 7 days. She was advised f/u in the next week if not improving, sooner if worsening. Tobacco use 06/12/2021 Assessment & Plan (06/12/2021 10:35 AM CLIP RIVETER): Encouraged continued attempts at smoking cessation, discussed that the wellbutrin may benefit these attempts Moderate episode of recurrent major depressive d isorder 06/12/2021 Assessment & Plan (06/12/2021 10:36 AM CLIP RIVETER): Continue with care per psychiatry Endometriosis 06/12/2021 Assessment & Plan (06/12/2021 10:36 AM CLIP RIVETER): Continue with care per senior maintenance mechanic Psychogenic nonepileptic seizure 08/09/2020 Migraine without aura and wi thout status migrainosus, not intractable 04/23/2020 Episodes of decreased attentiveness 04/23/2020 Assessment & Plan (06/12/2021 10:36 AM CLIP RIVETER): Continue with care per psychiatry Mild intermittent asthma 05/24/2018 Assessment & Plan (05/24/2018 4:45 AM CLIP RIVETER): Present on admission, currently asymptomatic. -Albuterol PRN Multiple food allergies 05/24/2018 Assessment & Plan (05/24/2018 4:47 AM CLIP RIVETER): Present on admission, currently asymptomatic. -Epinephrine 0.3mg IM PRN anaphylaxis Cervical pain (neck) 12/02/2016 Assessment & Plan (05/24/2018 4:47 AM CLIP RIVETER): Present on admission. Given description as unilateral [...] Type Department Care Team Description 11/25/2024 Telephone [facility] Obstetrics and Gynecology [address] [facility] 7th [address] [place] [address] Sara Lassiter Scheduling Appointments 11/25/2024 Telephone [facility] Minimally Invasive Surgery [address] [place] [address] 7th Floor [address] [place] [address] Sara Alcala MD Follow-up 10/11/2024 2:15 PM CDT Office Visit [facility] Minimally Invasive Surgery [address] [place] [address] 7th Floor [address] [place] [address] Sara Alcala MD Endometriosis (Primary [...] on file Legal Sex Female 11:46 PM CLIP RIVETER Gender Identity Not on file Sexual Orientation [...] Oxygen Saturation 99% 06/02/2022 10: 15 AM CLIP RIVETER Inhaled Oxygen Concentration - - Weight 57.5 [...] Influenza Vaccine (#1) 2024 05/25/2020, 2018 Insurance [employer] OPEN ACCESS CIGNA OPEN ACCESS AETNA [facility] OPEN ACCESS IDPA [facility] PLAN CRITICAL ACCESS HOSPITAL HEALTHCARE [facility] Advance Directives For more information, please contact: [phone] Documents on File Type Date Recorded Patient Button Grader Expl anation ADVANCE DIRECTIVE 05/24/2018 12:50 AM * Full Code (Latest Code Status on File) Date Activated Date Inactivated Comments 06/27/2020 8:51 AM 06/30/2020 8:59 PM * Full Code Date Activated Date Inactivated Comments 05/24/2018 2:35 AM 05/25/2018 6:00 PM Care Teams Meat Inspector Relationship Specialty Start Date End Date Jennifer Reyes PA PCP - General Rn Family 06/12/21
--- OUTSIDE RECORDS SUMMARY | 2024-11-29 09:13 | XMS_ITS | Encounter Summary ---
Author Organization [facility] Address [address] [place] [address] Phone Care Team Providers Care Educational Director Name Role Phone Jennifer Reyes Primary Care Provider +1- [phone] Reason for Visit * Reason Onset Date Comments Follow-up 11/25/2024 Encounter Details Date Type Department Care Team (Late st Contact Info) Description 11/25/2024 Telephone [facility] Minimally Invasive Surgery [address] [facility] 7th Floor [address] [place] [address] Sara Alcala MD [address] [facility] [phone] [place] [address] Follow-up Social History Tobacco Use Types Packs/Day Years Used Date Smoking Tobacco: Some Days Vaping Smokeless Tobacco: Never Alcohol Use Standard Drinks/Week [...] on file Legal Sex Female 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 Cheryl Restrepo. Pt is to have them fax records over. Pt wants to know if you are able to do the surgery alone or ifshe needs to see another physician. If so can you direct her in the correct direction. documented in this encounter Plan of Treatment Not on file documented as of this encounter Visit Diagnoses Not on filedocumented in this encounter Care Teams Educational Director Relationship Specialty Start Date End Date Jennifer Reyes PA PCP - General Feeder Operator 06/12/21 documented as of this encounter
[2024-11-29 09:19] LABS: Hematocrit 37.0 % (37.0-47.0); Hemoglobin 12.3 g/dL (12.0-15.0); Mean Corpuscular HGB Conc 33.2 g/dl (32-36); Mean Corpuscular Hemoglobin 29.4 pg (26-34); Mean Corpuscular Volume 88.5 fl (80-100); Platelet Count Result 202 k/mm3 (150-375); Red Blood Count 4.18 M/mm3 (4.2-5.4); White Blood Count 5.8 K/mm3 (4.5-10.0)
[2024-11-29 09:58] LABS: Beta HCG Quantitative < 2.39 mIU/ML
[2024-11-29 10:13] LABS: Thyroid Stimulating Hormone 0.465 uIU/mL (0.465-4.680)
== END 2024-11-29 08:56 | disposition home or self-care (01) ==
LOC: ANHLAB 08:59
PROVIDERS: PCP Nurse Practitioner Family; Visit Provider Obstetrics & Gynecology
DX: N91.2 Amenorrhea, unspecified (principal)
CPT/HCPCS: 36415; 84443; 84702; 85027

== ENCOUNTER 2024-12-09 10:15 | Emergency (ER) | payer OTHER, SELFPAY ==
--- NOTE | ~2024-12-09 | CT_ITS ---
EXAMINATION: CT abdomen pelvis w con DATE: 12/09/2024 13:32 INDICATION: Abdominal pain, nausea and vomiting TECHNIQUE: Computed tomography (CT) of the abdomen and pelvis was performed with 100 mL Omnipaque-350 intravenous contrast. Automated exposure control and iterative reconstruction technique were employe d. The dose-length product was 188.57 mGy-cm. COMPARISON: 12/13/2021 FINDINGS: Lung bases are clear. Heart size is normal. No pericardial or pleural effusion. Liver, gallbladder, p ancreas, bilateral adrenal glands and right kidney are normal. 6 mm left renal cyst. Unchanged 1.6 cm splenic cyst. The decompressed bladder, anteverted uterus and bilateral adnexa are unremarkable. Bledsoe els including the appendix are normal. Minimal likely physiologic free fluid in the cul-de-sac. No ab scess or free intraperineal gas. No pathologically enlarged abdominal or pelvic lymphadenopathy. Bone s are unremarkable. IMPRESSION: 1. No acute intra-abdominal/pelvic process. Reviewed, dictated and finalized at location A.
[2024-12-09 10:17] VITALS: BP 144/94; PULSE 110; RESP 16; TEMP 36.6; O2SAT 100
--- OUTSIDE RECORDS SUMMARY | 2024-12-09 10:18 | XMS_ITS | Clinical Summary ---
Author Organization [facility] Address [address] [place] [address] Phone Care Team Providers Care Remotely Operated Vehicle Name Role Phone Jennifer Reyes Primary Care Provider +1- [phone] Allergies Active Allergy Reactions Criticality Noted Date [...] Assessment & Plan: Continue with care per statistics intern Otalgia of right ear 06/12/2021 Overview (12/11/2021): [...] Insurance CIGNA [place] - [place] Care Teams Remotely Operated Vehicle Relationship Specialty Start Date End Date Jennifer Reyes PA PCP - General Family Medicine 01/02/22
--- OUTSIDE RECORDS SUMMARY | 2024-12-09 10:18 | XMS_ITS | Encounter Summary ---
Author Organization [facility] Address [address] [place] [address] Care Team Providers Care Timber Sizer Name Role Phone Denise Dyson APRN-ENVIRONMENTAL SERVICES TECH Primary Care Provider + Encounter Details Date Type Department Care Team (Late st Contact Info) Description 12/02/2024 Results Follow-Up [facility] [address] [place] [address] Denise Dyson APRN-CNP [address] [place] [address] Social History Tobacco Use Types Packs/Day Years Used Date Smoking Tobacco: Never Smokeless Tobacco: Never Alcohol Use Standard Drinks/Week Comments Not Currently 0 (1 standard drink = 0.6 oz pur e alcohol) PHQ-2 Answer Date Recorded Patient Health Questionnaire-2 Score 4 09/01/2024 Comments No Sex and Gender Information Value Date Recorded Sex Assigned at Not on file Legal Sex Female 5: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
--- OUTSIDE RECORDS SUMMARY | 2024-12-09 10:19 | XMS_ITS | Encounter Summary ---
Author Organization 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 Gender Identity Not on file Sexual Orientation Not on file documented as of this encounter Progress Notes * Crystal Kolb MD - 11/17/2024 10:29 AM CDT Your laboratory tests from [facility] ER visit from 11/16/2024 arrived to our office-reviewed as discussed over the phone documented in this encounter Plan of Treatment Not on file documented as of this encounter Visit Diagnoses Not on filedocumented in this encounter Care Teams Radiology Technician Relationship Specialty Start Date End Date Denise Dyson APRN-CNP [address] [id number] PCP - General Nurse Practitioner 03/25/23 documented as of this encounter
--- OUTSIDE RECORDS SUMMARY | 2024-12-09 10:19 | XMS_ITS | Clinical Summary ---
Author Organization [id number] Address [address] [facility] [place] [address] Care Team Providers Care Graphic Designer Name Role Phone Denise Dyson SMALL PIECE CUTTER-RECEPTIONIST SECRETARY Primary Care Provider + Source Comments [facility],non-owned Affiliates and Associated Physician Practices is amultiple site organization consisting of ambulatory clinics and hospital sitesin [place], [place], [place] and [place]. This disclosure is being madepursuant to the Care Everywhere program and may not contain all information available regarding this patient. Last updated 18.[facility] Allergies Active Allergy Reactions Criticality Noted Date Comments Adhesive Sensitivity Rash Medium 01/27/2024 [place] Oil Anaphylaxis High 02/09/2022 Cefdinir Diarrhea,Other,Urtic ar [...] Assessment & Plan: Continue with care per layup worker Last Assessment & Plan: Continue with care per layup worker Dermatitis 06/12/2021 02/03/2023 Overview (02/03/2023): Last Assessment [...] organization. Date Type Department Care Team Description 12/02/2024 Results Follow-Up [facility] [address] [place] [address] Denise Dyson, RABIA-RECEPTIONIST SECRETARY 11/17/2024 Results Follow-Up [facility] [address] [place] [address] Crystal Kolb MD 11/17/2024 Results Follow-Up [facility] [address] [place] [address] Crystal Jeffrey MD 11/17/2024 Results Follow-Up [facility] [address] [place] [address] Crystal Jeffrey MD 11/17/2024 Results Follow-Up [facility] [address] [place] [address] Crystal Jeffrey MD from Last 3 Months Immunizations Immunization Administration Dates Next Due INFLUENZA A [id number] VACCINE 05/25/2020 INFLUENZA VACCINE, QUADR. (F LUZONE; [...] on file Legal Sex Female 5:40 AM EPIC BEACON ANALYST Gender Identity Not on file Sexual [...] Date/Time Associated Diagnosis Comments LAB RESULTS ORDER 11/29/2024 LAB RESULTS ORDER 11/16/2024 LAB RESULTS ORDER [...] CDT Screen for STD (sexually transmitted disease) from Last 3 Months or Most Recently Relevant to Health Maintenance Results * LAB RESULTS ORDER (11/29/2024) Only the most recent of7 resultswithin the time period is included. 11/29/2024 Narrative 11/29/2024 Ordered by an unspecified provider. Scanned Document LAB - THERAPEUTIC DRUG MONITORI NG ORDERABLES Final Result * CHLAMYDIA + GC AMPLIFIED PROBE (09/02/2024 2:48 PM CDT) Chlamydia GIOVANI Urine Negative Negative [facility] INSURANCE BILL GC GIOVANI Urine Negative Negative [facility] INSURANCE BILL Microbiology URINE / Unknown 09/02/2024 2 :48 PM CDT 09/02/2024 Comment: Narrative [facility] INSURANCE BILL - 09/05/2024 11:07 PM CDT Performed at: [address] [id number] Centrifugal Operator: Eloise Milian MD, Phone: [phone] Denise Dyson APRN-RECEPTIONIST SECRETARY LAB - MICROBIOLOGY ORDER TU Final Result Performing Organization Address [facility] de Phone Number [facility] INSURANCE BILL [address] [place] [address] * HIV-1 HIV-2 ANTIBODY + HIV P24 AG PANEL (09/02/2024 2:47 PM CDT) Pathologist [facility] HIV Screen 4th Generation w Reflex Non Reactive Non Reactive [facility] INSURANCE BILL Comment: HIV-1/HIV-2 antibodies and HIV-1 p24 antigen were NOT detected. There is no laboratory evidence of HIV infection. HIV Negative Blood BLOOD SPECIMEN / Unknown 09/02/2024 2:47 PM CDT 09/02/2024 Narrative [facility] INSURANCE BILL - 09/03/2024 8:11 AM CDT Performed at: [address] [id number] Centrifugal Operator: Kevin Dan PhD, Phone: [phone] Denise Dyson APRN-RECEPTIONIST SECRETARY LAB - CHEMISTRY ORDERABL ES Final Result Performing Organization Address [facility] Co de Phone Number [facility] INSURANCE BILL [address] [place] [address] * HEPATITIS C ANTIBODY (09/02/2024 2:47 PM [...] 7:09 AM CDT Performed at: [facility] [address] [place], [place] [id number] Centrifugal Operator: Kevin Dan PhD, Phone: [phone] Denise Dyson APRN-RECEPTIONIST SECRETARY LAB - CHEMISTRY ORDERABL ES Final Result [facility] INSURANCE BILL [address] [place] [address] from Last 3 Months or Most Recently Relevant to Health Maintenance Insurance [facility] Care Teams Graphic Designer Relationship Specialty Start Date End Date Denise Dyson APRN-RECEPTIONIST SECRETARY [address] [place] [address] [address] [place] [address] PCP - General Nurse Practitioner 03/25/23
--- OUTSIDE RECORDS SUMMARY | 2024-12-09 10:19 | XMS_ITS | Patient Health Record ---
Author Organization [facility] Tagent Address [address] [facility] [address] [place] [address] Care Team Providers Care Curriculum Specialist Name Role Phone Herlinda Arriola Unavailable [phone] Allergies Allergen (clinical drug ingredient) Drug/Non Drug [...] Route Administration Date Status Comme nts Novel Lddxovrjf-V4H2-57, preservative free Unknown 05/25/2020 Administered Pfizer [employer] [...] NoDo you have a medical power of criminal defense attorney?: NoPublic Health and TravelHave you been [...] Problem Bipolar affective disorder, currently depressed, mild (460375072) Bipolar disorder, current episode depressed, mild (F31.31) 08/21/19 24 Active confirmed Problem Generalized anxiety disorder (22041005) Generalized anxiety disorder (F41.1) 08/21/19 24 Active confirmed Problem Posttraumatic stress disorder (76065780) Post-traumatic stress disorder, chronic (F43.12) 08/21/19 24 Active confirmed Problem Insomnia disorder related to another mental disorder (29624821) Insomnia due to other mental disorder (F51.05) 08/21/19 24 Active confirmed Problem Screening for cardiovascular system disease (255803702) Encounter for screening for cardiovascular disorders (Z13.6) Active confirmed Problem Long-term current use of drug therapy (396438202) Other emt intermediate (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 (Z79.899) 08/21/19 24 Active confirmed Problem Depression Screening (245775838) Encounter for screening for depression (Z13.31) Active confirmed Problem Attention deficit hyperactivity disorder (972864106) ADHD (attention deficit hyperactivity disorder), combined type (F90.2) Active confirmed Problem Bipolar disorder (29037417) Bipolar depression (F31.9) Active confirmed Vital Signs Heart Rate 94 /min 11/22/2024 Respiratory Rate 18 /min 11/22/2024 Blood pressure diastolic 78 mm Hg 11/22/2024 Height-cm 162.56 cm 11/22/2024 Weight-kg 55.79 kg 11/22/2024 Height 64.00 in 11/22/2024 Blood pressure systolic 115 mm Hg 11/22/2024 Weight 123 lbs 11/22/2024 BMI 21.11 kg/m2 11/22/2024 Encounters Encounter Location Date Provider Diagnosis [facility] [employer] [facility] [address] [facility] [address] [address] 01/11/2024 Herlinda Arriola Bipolar disorder, current episode depressed, mild F31.31 ; Generalized anxiety disorder F41.1 ; Insomnia due to other mental disorder F51.05 ; Post-traumatic stress disorder, chronic F43.12 and Other fdc (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 Z79.899 [facility] [employer] [facility] [address] [address] 02/01/2024 Herlinda Arriola Bipolar disorder, current episode depressed, mild F31.31 ; Generalized anxiety disorder F41.1 ; Insomnia due to other mental disorder F51.05 ; Post-traumatic stress disorder, chronic F43.12 and Other fdc (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 Z79.899 [facility] [employer] [facility] [address] [address] 02/29/2024 Herlinda Arriola Bipolar disorder, current episode depressed, mild F31.31 ; Generalized anxiety disorder F41.1 ; Insomnia due to other mental disorder F51.05 ; Post-traumatic stress disorder, chronic F43.12 and Other emt intermediate (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 Z79.899 [facility] [employer] [facility] [address] [place] [address] [place] [address] 04/14/2024 Herlinda Arriola Bipolar disorder, current episode depressed, mild F31.31 ; Generalized anxiety disorder F41.1 ; Insomnia due to other mental disorder F51.05 ; Post-traumatic stress disorder, chronic F43.12 and Other emt intermediate (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 Z79.899 [facility] [employer] [facility] [address] [place] [address] [place] [address] 05/16/2024 Herlinda Therel Bipolar disorder, current episode depressed, mild F31.31 ; Generalized anxiety disorder F41.1 ; Insomnia due to other mental disorder F51.05 ; Post-traumatic stress disorder, chronic F43.12 and Other fdc (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 Z79.899 [facility] [employer] [facility] [address] [place] [address] [place] [address] 06/02/2024 Herlinda Arriola Bipolar disorder, current episode depressed, mild F31.31 ; Generalized anxiety disorder F41.1 ; Insomnia due to other mental disorder F51.05 ; Post-traumatic stress disorder, chronic F43.12 and Other emt intermediate (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 Z79.899 [facility] [employer] [facility] [address] [facility] [address] [place] [address] 06/10/2024 Herlinda Thery Bipolar disorder, current episode depressed, mild F31.31 ; Generalized anxiety disorder F41.1 ; Insomnia due to other mental disorder F51.05 ; Post-traumatic stress disorder, chronic F43.12 and Other emt intermediate (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 Z79.899 [facility] [employer] [facility] [address] [place] [address] [place] [address] 06/24/2024 Herlinda Thery Bipolar disorder, current episode depressed, mild F31.31 ; Generalized anxiety disorder F41.1 ; Insomnia due to other mental disorder F51.05 ; Post-traumatic stress disorder, chronic F43.12 and Other emt intermediate (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 Z79.899 [facility] [place], [facility] [address] [place] [address] [place] [address] 08/08/2024 Herlinda Therel Encounter for screen ing for depression Z13.31 ; Encounter for screening for cardiovascular disorders Z13.6 ; Bipolar disorder, current episode depressed, mild F31.31 ; Generalized anxiety disorder F41.1 ; Insomnia due to other mental disorder F51.05 ; Post-traumatic stress disorder, chronic F43.12 ; Other fdc (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 Z79.899 and ADHD (attention deficit hyperactivity disorder), combined type F90.2 [facility] [employer] [place] [address] [place] [address] [place] [address] 08/23/2024 Herlinda Therel Encounter for screen ing for depression Z13.31 ; Encounter for screening for cardiovascular disorders Z13.6 ; Bipolar disorder, current episode depressed, mild F31.31 ; Generalized anxiety disorder F41.1 ; Insomnia due to other mental disorder F51.05 ; Post-traumatic stress disorder, chronic F43.12 ; Other emt intermediate (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 Z79.899 ; ADHD (attention deficit hyperactivity disorder), combined type F90.2 and Nicotine use Z72.0 [facility] [employer] [place] [address] [facility] [address] [place] [address] 09/16/2024 Herlinda Arriola [facility] [place], [facility] [address] [facility] [address] [place] [address] 11/22/2024 Herlinda Therel Encounter for screen ing for depression Z13.31 ; Bipolar depression F31.9 ; Encounter for screening for cardiovascular disorders Z13.6 ; Generalized anxiety disorder F41.1 ; Insomnia due to other mental disorder F51.05 ; Post-traumatic stress disorder, chronic F43.12 ; Other emt intermediate (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 Z79.899 ; ADHD (attention deficit hyperactivity disorder), combined type F90.2 and Nicotine use Z72.0 [facility] [employer] [facility] [address] [facility] [address] [place] [address] 04/13/2024 Herlinda SportsC[employer] [facility] [place], [place] [address] [place] [address] [place] [address] 05/16/2024 Herlinda Therel [facility] [place], [facility] [address] [place] [address] [place] [address] 08/22/2024 Herlinda [employer] [address] [place] [address] [place] [address] 08/22/2024 Herlinda Tariqel [facility] [employer] [facility] [address] [place] [address] [place] [address] 08/22/2024 Herlinda Tariqel [facility] [employer] [facility] [address] [place] [address] [place] [address] 11/22/2024 Herlinda Flako Assessments Encounter Date Diagnosis [...] rx 4-5 days continue rx jaleel 05/19 https://www.[employer]/qvshbuia-gbp-obbmq gzn-zmftqzaso-gxvz/ Lamotrigine 100 mg - patient reported depression [...] FND 2. Generalized anxiety disorder -continue medications senior mainframe developer PRESCRIBES Xanax - educated to take as [...] and educated on complaince rx jaleel 05/19 https://www.[email or web address]/hhlhalaf-yzv-fovtl doh-oordnjelw-zjtk/ Lamotrigine 100 mg - patient reported depression [...] FND 2. Generalized anxiety disorder -continue medications senior mainframe developer PRESCRIBES Xanax - educated to take as [...] and educated on complaince rx jaleel 05/19 https://www.[employer]/aaiuwphh-lzf-stlfh ose-evvxcdnic-wdef/ Lamotrigine 100 mg - patient reported depression [...] FND 2. Generalized anxiety disorder -continue medications senior mainframe developer PRESCRIBES Xanax - educated to take as [...] and educated on complaince rx jaleel 05/19 https://www.[employer]/telvffzd-tht-hvhdf rkz-qlesibqlx-cgng/ Increase Lamotrigine 150 mg - patient reported [...] FND 2. Generalized anxiety disorder -continue medications senior mainframe developer PRESCRIBES Xanax - educated to take as [...] and educated on complaince rx jaleel 05/19 https://www.[employer] .[employer]/nkmvrzff-bzg-mcpno esb-tivhztjbv-bger/ Increase Lamotrigine 200 mg - patient reported [...] FND 2. Generalized anxiety disorder -continue medications senior mainframe developer PRESCRIBES Xanax - educated to take as [...] and educated on complaince rx jaleel 05/19 https://www.[employer]/hzzgauoc-mch-hencc pvs-jiqnnfxln-heem/ Lamotrigine 200 mg - patient reported depression [...] FND 2. Generalized anxiety disorder -continue medications senior mainframe developer PRESCRIBES Xanax - educated to take as [...] and educated on complaince rx jaleel 05/19 https://www.[employer]/ntrhbstr-xai-aejqc alm-watoeswfx-hqzl/ Lamotrigine 200 mg - patient reported depression [...] FND 2. Generalized anxiety disorder -continue medications senior mainframe developer PRESCRIBES Xanax - educated to take as [...] rx jaleel 05/19 no refill needed today https://www.[employer]/xvjmxjqz-rmt-kmffa jip-qptebmzcz-bupe/ Lamotrigine 200 mg - patient reported depression [...] FND 2. Generalized anxiety disorder -continue medications senior mainframe developer PRESCRIBES Xanax - educated to take as [...] and educated on complaince rx jaleel 05/19 https://www.[employer]/ksjarhss-nsa-zusqx fme-gceccvszr-jbbi/ Lamotrigine 200 mg - patient reported depression [...] FND 2. Generalized anxiety disorder -continue medications senior mainframe developer PRESCRIBES Xanax - educated to take as [...] and educated on complaince rx jaleel 05/19 https://www.[employer]/ejrzncdd-xvb-sdzkv yjd-vyorkphrx-hwlk/ Lamotrigine 200 mg - schedule weekly appointment [...] FND 2. Generalized anxiety disorder -continue medications senior mainframe developer PRESCRIBES Xanax - educated to take as [...] and educated on complaince rx jaleel 05/19 https://www.[employer]/pydprtic-saj-xpuda oqe-ifsrohqmo-uynt/ Lamotrigine 200 mg - schedule weekly appointment [...] FND 2. Generalized anxiety disorder -continue medications senior mainframe developer PRESCRIBES Xanax - educated to take as [...] stop smoking hotline given -Quit - Yes [place] Tobacco Quitline Call a Smoking Quitline The [employer]'s Smoking Quitline, (5-262-64M-QUIT) Smokefree.gov, which connects you with your State's Quitline, (2-940-SXUXNKX) Veterans Smoking Quitline, (6-335-OMVCPMJ) 6. cannabis use Cannabis Use Education NO [...] of psychosis Cannabis/marijuana information: http_s://nagi.nih.gov/p ublications/drugfacts/c annabis-marijuana http_s://www.[employer]/mkcklola-zlq-bjat tvdo-izpyvzxcn-qenb/ 11/22/2024 Bipolar depression (ICD-10 - F31.9) 1. Bipolar I disorder, most recent episode depression - educated to take rx as prescribed restart Abilify 10 mg at bedtime- having increase depression, agiation continue rx and educated on complaince rx jaleel 05/19 https://www.[employer]/jxkjnwsb-mpv-akjth cmv-xdlqnbcsg-pafi/ Lamotrigine 200 mg - schedule weekly appointment [...] FND 2. Generalized anxiety disorder -continue medications senior mainframe developer PRESCRIBES Xanax - educated to take as [...] stop smoking hotline given -Quit - Yes [place] Tobacco Quitline Call a Smoking Quitline The [employer]'s Smoking Quitline, (3-227-51J-QUIT) Smokefree.gov, which connects you with your State's Quitline, (5-268-FLSOTOV) Veterans Smoking Quitline, (2-565-IXBKPWR) 6. cannabis use Cannabis Use Education NO [...] of psychosis Cannabis/marijuana information: http_s://nagi.nih.gov/p ublications/drugfacts/c annabis-marijuana http_s://www.[employer]/jdtdrzwd-sjz-svfy yagy-cextsdymk-hggt/ 08/23/2024 Encounter for screening for cardiovascular disorders (ICD-10 - Z13.6) 1. Bipolar I disorder, most recent episode depression - educated to take rx as prescribed Abilify 10 mg at bedtime continue rx and educated on complaince rx jaleel 05/19 https://www.[employer]/plglljar-zsq-hldpr cdu-neanpllig-unyb/ Lamotrigine 200 mg - schedule weekly appointment [...] FND 2. Generalized anxiety disorder -continue medications senior mainframe developer PRESCRIBES Xanax - educated to take as [...] and educated on complaince rx jaleel 05/19 https://www.[employer]/asoyrrqv-gez-aiadc yup-ocmokzdro-niqe/ Lamotrigine 200 mg - schedule weekly appointment [...] FND 2. Generalized anxiety disorder -continue medications senior mainframe developer PRESCRIBES Xanax - educated to take as [...] stop smoking hotline given Quit - Yes [place] Tobacco Quitline Call a Smoking Quitline The [employer]'s Smoking Quitline, (5-828-45N-QUIT) Smokefree.gov, which connects you with your State's Quitline, (8-183-KVRWJFW) Veterans Smoking Quitline, (9-872-GJPPLAZ) 6. cannabis use Cannabis Use Education NO [...] of psychosis Cannabis/marijuana information: http_s://nagi.nih.gov/p ublications/drugfacts/c annabis-marijuana http_s://www.[employer]/dqunwcsq-wtv-fcvc cjfv-wyiziakuq-fvkg/ 08/08/2024 Encounter for screening for cardiovascular disorders (ICD-10 - Z13.6) 1. Bipolar I disorder, most recent episode depression - educated to take rx as prescribed Abilify 10 mg at bedtime continue rx and educated on complaince rx jaleel 05/19 https://www.[employer]/mnrzuhmh-jpy-rznvq jxe-xtfxkzbkf-fcfr/ Lamotrigine 200 mg - patient reported depression [...] FND 2. Generalized anxiety disorder -continue medications senior mainframe developer PRESCRIBES Xanax - educated to take as [...] rx jaleel 05/19 no refill needed today https://www.[employer]/rlszffyt-stj-vnmcv vsk-oubhzujtk-zgiy/ Lamotrigine 200 mg - patient reported depression [...] FND 2. Generalized anxiety disorder -continue medications senior mainframe developer PRESCRIBES Xanax - educated to take as [...] and educated on complaince rx jaleel 05/19 https://www.[employer]/ybncglej-bbr-wkysj cyq-jdtkzlwlu-czzv/ Lamotrigine 200 mg - patient reported depression [...] FND 2. Generalized anxiety disorder -continue medications senior mainframe developer PRESCRIBES Xanax - educated to take as [...] and educated on complaince rx jaleel 05/19 https://www.[employer]/letuyhgq-flt-gcphd mvg-hpbsrdxyb-szxf/ Lamotrigine 200 mg - patient reported depression [...] FND 2. Generalized anxiety disorder -continue medications senior mainframe developer PRESCRIBES Xanax - educated to take as [...] and educated on complaince rx jaleel 05/19 https://www.[employer]/ymvqlkci-zcc-llajh lad-qanoqonxg-mish/ Increase Lamotrigine 200 mg - patient reported [...] FND 2. Generalized anxiety disorder -continue medications senior mainframe developer PRESCRIBES Xanax - educated to take as [...] and educated on complaince rx jaleel 05/19 https://www.[employer]/ubysspoq-ltf-vyhbz fuq-rvlpqtamr-wfuy/ Increase Lamotrigine 150 mg - patient reported [...] FND 2. Generalized anxiety disorder -continue medications senior mainframe developer PRESCRIBES Xanax - educated to take as [...] and educated on complaince rx jaleel 05/19 https://www.[employer]/udwzulau-kff-vgpoc hcn-tfoatqifg-jnbo/ Lamotrigine 100 mg - patient reported depression [...] FND 2. Generalized anxiety disorder -continue medications senior mainframe developer PRESCRIBES Xanax - educated to take as [...] and educated on complaince rx jaleel 05/19 https://www.[employer]/nboafins-ier-uhkri pvu-urnplngsp-vlap/ Lamotrigine 100 mg - patient reported depression [...] FND 2. Generalized anxiety disorder -continue medications senior mainframe developer PRESCRIBES Xanax - educated to take as [...] rx 4-5 days continue rx jaleel 05/19 https://www.[employer]/jbzaamxy-orm-mvixh ror-tvinosivg-ryca/ Lamotrigine 100 mg - patient reported depression [...] FND 2. Generalized anxiety disorder -continue medications senior mainframe developer PRESCRIBES Xanax - educated to take as [...] rx 4-5 days continue rx jaleel 05/19 https://www.[employer]/xifmqpjk-vlv-gxiam bdm-nayexwpke-avsz/ Lamotrigine 100 mg - patient reported depression [...] FND 2. Generalized anxiety disorder -continue medications senior mainframe developer PRESCRIBES Xanax - educated to take as [...] and educated on complaince rx jaleel 05/19 https://www.[employer]/lsniqwlb-nws-azrbw rrg-hicegplbn-bvcb/ Lamotrigine 100 mg - patient reported depression [...] FND 2. Generalized anxiety disorder -continue medications senior mainframe developer PRESCRIBES Xanax - educated to take as [...] and educated on complaince rx jaleel 05/19 https://www.[employer]/xtefkleb-gjs-hgmkt vkn-ahopmtdgt-ecgu/ Lamotrigine 100 mg - patient reported depression [...] FND 2. Generalized anxiety disorder -continue medications senior mainframe developer PRESCRIBES Xanax - educated to take as [...] and educated on complaince rx jaleel 05/19 https://www.[employer]/twolslzr-toq-bgcds oxa-rbmdaijpc-splu/ Increase Lamotrigine 150 mg - patient reported [...] FND 2. Generalized anxiety disorder -continue medications senior mainframe developer PRESCRIBES Xanax - educated to take as [...] and educated on complaince rx jaleel 05/19 https://www.[employer]/vrlhnrlp-lmm-aybjh wdp-mgtbdwmni-ulro/ Increase Lamotrigine 200 mg - patient reported [...] FND 2. Generalized anxiety disorder -continue medications senior mainframe developer PRESCRIBES Xanax - educated to take as [...] and educated on complaince rx jaleel 05/19 https://www.[employer]/dhffwsmw-tfd-flpsc ror-kfdltquiw-tnfc/ Lamotrigine 200 mg - patient reported depression [...] FND 2. Generalized anxiety disorder -continue medications senior mainframe developer PRESCRIBES Xanax - educated to take as [...] and educated on complaince rx jaleel 05/19 https://www.[employer]/pojbgrvb-qts-fxevf xay-bdaccicrt-wqyj/ Lamotrigine 200 mg - patient reported depression [...] FND 2. Generalized anxiety disorder -continue medications senior mainframe developer PRESCRIBES Xanax - educated to take as [...] rx jaleel 05/19 no refill needed today https://www.[employer]/oqtlfvmg-vin-moulv rfo-cassbodmd-feer/ Lamotrigine 200 mg - patient reported depression [...] FND 2. Generalized anxiety disorder -continue medications senior mainframe developer PRESCRIBES Xanax - educated to take as [...] and educated on complaince rx jaleel 05/19 https://www.[employer] [place] [employer]/gjapdkfi-dip-cxytn riz-miqtztiax-hzac/ Lamotrigine 200 mg - patient reported depression [...] FND 2. Generalized anxiety disorder -continue medications senior mainframe developer PRESCRIBES Xanax - educated to take as [...] and educated on complaince rx jaleel 05/19 https://www.[employer]/atzoeywp-jmz-xdomg scv-hxcjkxbos-dkhi/ Lamotrigine 200 mg - patient reported depression [...] FND 2. Generalized anxiety disorder -continue medications senior mainframe developer PRESCRIBES Xanax - educated to take as [...] and educated on complaince rx jaleel 05/19 https://www.[employer]/aeiphlxq-hyz-ynbvd qhf-ownqrkklp-nnyw/ Lamotrigine 200 mg - schedule weekly appointment [...] FND 2. Generalized anxiety disorder -continue medications senior mainframe developer PRESCRIBES Xanax - educated to take as [...] and educated on complaince rx jaleel 05/19 https://www.[employer]/gepmnllm-vgu-itcfr sxs-omrsqtedw-icuu/ Lamotrigine 200 mg - schedule weekly appointment [...] FND 2. Generalized anxiety disorder -continue medications senior mainframe developer PRESCRIBES Xanax - educated to take as [...] stop smoking hotline given Quit - Yes [place] Tobacco Quitline Call a Smoking Quitline The [employer]'s Smoking Quitline, (2-059-18X-QUIT) Smokefree.gov, which connects you with your State's Quitline, (6-147-SYGMOEW) Veterans Smoking Quitline, (3-461-TMXZEKZ) 6. cannabis use Cannabis Use Education NO [...] of psychosis Cannabis/marijuana information: http_s://nagi.nih.gov/p ublications/drugfacts/c annabis-marijuana http_s://www.[employer]/hxonmred-bly-atak irnd-fnbmcfrlc-gxvv/ 11/22/2024 Insomnia due to other mental disorder (ICD-10 - F51.05) 1. Bipolar I disorder, most recent episode depression - educated to take rx as prescribed restart Abilify 10 mg at bedtime- having increase depression, agiation continue rx and educated on complaince rx jaleel 05/19 https://www.[employer]/nlmmjwtf-zhc-yjlni clk-daqocbavl-unrx/ Lamotrigine 200 mg - schedule weekly appointment [...] FND 2. Generalized anxiety disorder -continue medications senior mainframe developer PRESCRIBES Xanax - educated to take as [...] stop smoking hotline given -Quit - Yes [place] Tobacco Quitline Call a Smoking Quitline The [employer]'s Smoking Quitline, (1-101-18U-QUIT) Smokefree.gov, which connects you with your State's Quitline, (4-780-DPGANIO) Veterans Smoking Quitline, (3-753-QWFDLZH) 6. cannabis use Cannabis Use Education NO [...] of psychosis Cannabis/marijuana information: http_s://nagi.nih.gov/p ublications/drugfacts/c annabis-marijuana http_s://www.[employer]/urhvhuew-cpa-sanb wgyl-rfaqltfdm-zmgp/ 08/23/2024 Generalized anxiety disorder (ICD-10 - F41.1) [...] and educated on complaince rx jaleel 05/19 https://www.[employer]/ftrnnkte-vtb-ojynw hag-aoifahptf-vbem/ Lamotrigine 200 mg - schedule weekly appointment [...] FND 2. Generalized anxiety disorder -continue medications senior mainframe developer PRESCRIBES Xanax - educated to take as [...] and educated on complaince rx jaleel 05/19 https://www.[employer]/davovoic-qpv-kotgz dfy-zwgyjuulf-zurt/ Lamotrigine 200 mg - patient reported depression [...] FND 2. Generalized anxiety disorder -continue medications senior mainframe developer PRESCRIBES Xanax - educated to take as [...] rx jaleel 05/19 no refill needed today https://[employer].[facility] [employer]/smwkuqhx-cgy-xyxwx apy-mntvahtcd-dico/ Lamotrigine 200 mg - patient reported depression [...] FND 2. Generalized anxiety disorder -continue medications senior mainframe developer PRESCRIBES Xanax - educated to take as [...] and educated on complaince rx jaleel 05/19 https://www.[employer]/ygnotjvf-cut-ariid ltc-ityunnchp-ymlq/ Lamotrigine 200 mg - patient reported depression [...] FND 2. Generalized anxiety disorder -continue medications senior mainframe developer PRESCRIBES Xanax - educated to take as [...] and educated on complaince rx jaleel 05/19 https://www.[facility]/ykfwxgyl-mhs-vavnb nvy-hqpcxpgzy-yzcy/ Lamotrigine 200 mg - patient reported depression [...] FND 2. Generalized anxiety disorder -continue medications senior mainframe developer PRESCRIBES Xanax - educated to take as [...] and educated on complaince rx jaleel 05/19 https://www.[facility]/zgfjndkq-keo-lyuof rdv-dkkopqlvg-mjid/ Increase Lamotrigine 200 mg - patient reported [...] FND 2. Generalized anxiety disorder -continue medications senior mainframe developer PRESCRIBES Xanax - educated to take as [...] and educated on complaince rx jaleel 05/19 https://www.[employer] .[employer]/hnzepyyn-rxq-tswad yhg-rebohixfz-aegr/ Increase Lamotrigine 150 mg - patient reported [...] FND 2. Generalized anxiety disorder -continue medications senior mainframe developer PRESCRIBES Xanax - educated to take as [...] and educated on complaince rx jaleel 05/19 https://www.[employer] .[employer]/mhurohnf-ton-lhodw rmj-pqpbpbmfx-nsbm/ Lamotrigine 100 mg - patient reported depression [...] FND 2. Generalized anxiety disorder -continue medications senior mainframe developer PRESCRIBES Xanax - educated to take as [...] and educated on complaince rx jaleel 05/19 https://www.[facility]/dknzivwg-udc-ekkwk yzu-whfnywkvb-nccq/ Lamotrigine 100 mg - patient reported depression [...] FND 2. Generalized anxiety disorder -continue medications senior mainframe developer PRESCRIBES Xanax - educated to take as [...] rx 4-5 days continue rx jaleel 05/19 https://[employer].[facility]/gasvbbqs-mvt-prtmc gpm-nwhedejtu-aolw/ Lamotrigine 100 mg - patient reported depression [...] FND 2. Generalized anxiety disorder -continue medications senior mainframe developer PRESCRIBES Xanax - educated to take as [...] 5. Long-term drug therapy - 01/11/2024 Other emt intermediate (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 (ICD-10 - Z79.899) Medication Refill: Care Instructions material was published, Medication Refill: Care Instructions material was published 1. Bipolar I disorder, most recent episode depression - educated to take rx as prescribed Abilify 10 mg at bedtime started 05/22/22- reported been off rx 4-5 days continue rx jaleel 05/19 https://www.[facility]/hqiesdjg-lwu-srrev nfy-ivvphrnfa-badb/ Lamotrigine 100 mg - patient reported depression [...] FND 2. Generalized anxiety disorder -continue medications senior mainframe developer PRESCRIBES Xanax - educated to take as [...] 5. Long-term drug therapy - 02/01/2024 Other fdc (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 (ICD-10 - Z79.899) Medication Refill: Care Instructions material was published, Medication Refill: Care Instructions material was published 1. Bipolar I disorder, most recent episode depression - educated to take rx as prescribed Abilify 10 mg at bedtime started 05/22/22- continue rx and educated on complaince rx jaleel 05/19 https://www.[facility]/sibtoqrn-iwx-rxmlb pgc-jqipjenzx-resw/ Lamotrigine 100 mg - patient reported depression [...] FND 2. Generalized anxiety disorder -continue medications senior mainframe developer PRESCRIBES Xanax - educated to take as [...] 5. Long-term drug therapy - 02/29/2024 Other emt intermediate (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 (ICD-10 - Z79.899) Medication Refill: Care Instructions material was published, Medication Refill: Care Instructions material was published 1. Bipolar I disorder, most recent episode depression - educated to take rx as prescribed Abilify 10 mg at bedtime started 05/22/22- continue rx and educated on complaince rx jaleel 05/19 https://www.[facility]/ujkljcqo-xht-rhhts duq-xnrrxtdpa-gyhj/ Lamotrigine 100 mg - patient reported depression [...] FND 2. Generalized anxiety disorder -continue medications senior mainframe developer PRESCRIBES Xanax - educated to take as [...] 5. Long-term drug therapy - 04/14/2024 Other fdc (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 (ICD-10 - Z79.899) Medication Refill: Care Instructions material was published, Medication Refill: Care Instructions material was published 1. Bipolar I disorder, most recent episode depression - educated to take rx as prescribed Abilify 10 mg at bedtime started 05/22/22- continue rx and educated on complaince rx jaleel 05/19 https://www.[employer] .[employer]/wnhsazkt-xfg-fxbpd nli-dbiztcbgz-hyau/ Increase Lamotrigine 150 mg - patient reported [...] FND 2. Generalized anxiety disorder -continue medications senior mainframe developer PRESCRIBES Xanax - educated to take as [...] 5. Long-term drug therapy - 05/16/2024 Other emt intermediate (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 (ICD-10 - Z79.899) Medication Refill: Care Instructions material was published, Medication Refill: Care Instructions material was published 1. Bipolar I disorder, most recent episode depression - educated to take rx as prescribed Abilify 10 mg at bedtime continue rx and educated on complaince rx jaleel 05/19 https://www.[facility]/xnfdgynz-wwb-glztk guo-bxqolqjzv-rgef/ Increase Lamotrigine 200 mg - patient reported [...] FND 2. Generalized anxiety disorder -continue medications senior mainframe developer PRESCRIBES Xanax - educated to take as [...] 5. Long-term drug therapy - 06/02/2024 Other fdc (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 (ICD-10 - Z79.899) Medication Refill: Care Instructions material was published, Medication Refill: Care Instructions material was published 1. Bipolar I disorder, most recent episode depression - educated to take rx as prescribed Abilify 10 mg at bedtime continue rx and educated on complaince rx jaleel 05/19 https://www.[facility]/bgkjflrt-rut-nnpjd lza-vcnbxiszz-farn/ Lamotrigine 200 mg - patient reported depression [...] FND 2. Generalized anxiety disorder -continue medications senior mainframe developer PRESCRIBES Xanax - educated to take as [...] 5. Long-term drug therapy - 06/10/2024 Other emt intermediate (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 (ICD-10 - Z79.899) Medication Refill: Care Instructions material was published, Medication Refill: Care Instructions material was published 1. Bipolar I disorder, most recent episode depression - educated to take rx as prescribed Abilify 10 mg at bedtime continue rx and educated on complaince rx jaleel 05/19 https://[employer].[facility]/ktlapfuw-owg-tfifu jwt-utuxjxhor-oabe/ Lamotrigine 200 mg - patient reported depression [...] FND 2. Generalized anxiety disorder -continue medications senior mainframe developer PRESCRIBES Xanax - educated to take as [...] and educated on complaince rx jaleel 05/19 https://www.[facility]/fxmlbejd-hvd-lencs cad-qqfdaecpa-kkck/ Lamotrigine 200 mg - patient reported depression [...] FND 2. Generalized anxiety disorder -continue medications senior mainframe developer PRESCRIBES Xanax - educated to take as [...] . Long-term drug therapy - 06/24/2024 Other fdc (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 (ICD-10 - Z79.899) Medication Refill: Care Instructions material was published, Medication Refill: Care Instructions material was published 1. Bipolar I disorder, most recent episode depression - educated to take rx as prescribed Abilify 10 mg at bedtime continue rx and educated on complaince rx jaleel 05/19 no refill needed today https://www.[facility]/hxqzepqy-uld-qdoot cas-nsetkvdtn-arzw/ Lamotrigine 200 mg - patient reported depression [...] FND 2. Generalized anxiety disorder -continue medications senior mainframe developer PRESCRIBES Xanax - educated to take as [...] and educated on complaince rx jaleel 05/19 https://www.[facility]/urlistve-ntn-dgkps ipw-sbenbetnr-pwvs/ Lamotrigine 200 mg - schedule weekly appointment [...] FND 2. Generalized anxiety disorder -continue medications senior mainframe developer PRESCRIBES Xanax - educated to take as [...] and educated on complaince rx jaleel 05/19 https://www.[employer] .[employer]/sgartmbn-acm-glepy skr-kjjwhkiwe-jpzf/ Lamotrigine 200 mg - schedule weekly appointment [...] FND 2. Generalized anxiety disorder -continue medications senior mainframe developer PRESCRIBES Xanax - educated to take as [...] stop smoking hotline given -Quit - Yes [place] Tobacco Quitline Call a Smoking Quitline The National [employer]'s Smoking Quitline, (5-301-90R-QUIT) Smokefree.gov, which connects you with your State's Quitline, (5-276-TCSQMED) Veterans Smoking Quitline, (7-325-VKJZRFN) 6. cannabis use Cannabis Use Education NO [...] of psychosis Cannabis/marijuana information: http_s://nagi.nih.gov/p ublications/drugfacts/c annabis-marijuana http_s://www.[facility]/pouxcono-rji-wxih vfcy-gasxclcct-rlsx/ 11/22/2024 Other fdc (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 (ICD-10 - Z79.899) Medication Refill: Care Instructions material was published, Medication Refill: Care Instructions material was published, Medication Refill: Care Instructions material was published 1. Bipolar I disorder, most recent episode depression - educated to take rx as prescribed restart Abilify 10 mg at bedtime- having increase depression, agiation continue rx and educated on complaince rx jaleel 05/19 https://www.[facility]/fxftuutj-sve-fcyry opx-jsjpjohxz-ynlm/ Lamotrigine 200 mg - schedule weekly appointment [...] FND 2. Generalized anxiety disorder -continue medications senior mainframe developer PRESCRIBES Xanax - educated to take as [...] stop smoking hotline given -Quit - Yes [place] Tobacco Quitline Call a Smoking Quitline The National [employer]'s Smoking Quitline, (9-198-80T-QUIT) Smokefree.gov, which connects you with your State's Quitline, (8-340-UMGPQJY) Veterans Smoking Quitline, (4-902-NGULXDL) 6. cannabis use Cannabis Use Education NO [...] of psychosis Cannabis/marijuana information: http_s://nagi.nih.gov/p ublications/drugfacts/c annabis-marijuana http_s://www.[employer]/veaaqswt-wcs-lzje xhse-ejadpvado-enik/ 08/23/2024 Post-traumatic stress disorder, chronic (ICD-10 - [...] and educated on complaince rx jaleel 05/19 https://www.[facility]/mcwbirnd-afn-ygwhp yml-efuvdopwd-lanv/ Lamotrigine 200 mg - schedule weekly appointment [...] FND 2. Generalized anxiety disorder -continue medications senior mainframe developer PRESCRIBES Xanax - educated to take as [...] . Long-term drug therapy - 08/08/2024 Other fdc (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 (ICD-10 - Z79.899) Medication Refill: Care Instructions material was published, Medication Refill: Care Instructions material was published, Medication Refill: Care Instructions material was published 1. Bipolar I disorder, most recent episode depression - educated to take rx as prescribed Abilify 10 mg at bedtime continue rx and educated on complaince rx jaleel 05/19 https://www.[employer] .[employer]/ivjuysvv-nii-gwwzw pgr-evexcysqt-zxxe/ Lamotrigine 200 mg - patient reported depression [...] FND 2. Generalized anxiety disorder -continue medications senior mainframe developer PRESCRIBES Xanax - educated to take as [...] and educated on complaince rx jaleel 05/19 https://www.[facility]/qomvpmsy-lyo-ttoah rbd-pwckhzylb-mzgb/ Lamotrigine 200 mg - patient reported depression [...] FND 2. Generalized anxiety disorder -continue medications senior mainframe developer PRESCRIBES Xanax - educated to take as [...] . Long-term drug therapy - 08/23/2024 Other fdc (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 (ICD-10 - Z79.899) Medication Refill: Care Instructions material was published, Medication Refill: Care Instructions material was published, Medication Refill: Care Instructions material was published 1. Bipolar I disorder, most recent episode depression - educated to take rx as prescribed Abilify 10 mg at bedtime continue rx and educated on complaince rx jaleel 05/19 https://www.[facility]/ccdwkwxb-czu-plfbz rnq-nxbycydda-ranl/ Lamotrigine 200 mg - schedule weekly appointment [...] FND 2. Generalized anxiety disorder -continue medications senior mainframe developer PRESCRIBES Xanax - educated to take as [...] and educated on complaince rx jaleel 05/19 https://www.[facility]/zhdzrbyj-hoc-zahyd tia-folglpvgp-ogfw/ Lamotrigine 200 mg - schedule weekly appointment [...] FND 2. Generalized anxiety disorder -continue medications senior mainframe developer PRESCRIBES Xanax - educated to take as [...] stop smoking hotline given -Quit - Yes [place] Tobacco Quitline Call a Smoking Quitline The National [employer]'s Smoking Quitline, (2-485-92K-QUIT) Smokefree.gov, which connects you with your State's Quitline, (6-299-SREMRGY) Veterans Smoking Quitline, (1-144-SXKGTIK) 6. cannabis use Cannabis Use Education NO [...] of psychosis Cannabis/marijuana information: http_s://nagi.nih.gov/p ublications/drugfacts/c annabis-marijuana http_s://www.[employer]/ckufrceb-nih-hits fnqv-hvridbjgd-wizn/ 11/22/2024 Nicotine use (ICD-10 - Z72.0) 1. Bipolar I disorder, most recent episode depression - educated to take rx as prescribed restart Abilify 10 mg at bedtime- having increase depression, agiation continue rx and educated on complaince rx jaleel 05/19 https://www.[facility]/ayptwecf-uqj-gnbqu gay-kmvxdoayd-jpds/ Lamotrigine 200 mg - schedule weekly appointment [...] FND 2. Generalized anxiety disorder -continue medications senior mainframe developer PRESCRIBES Xanax - educated to take as [...] stop smoking hotline given -Quit - Yes [place] Tobacco Quitline Call a Smoking Quitline The [employer]'s Smoking Quitline, (1-918-00B-QUIT) Smokefree.gov, which connects you with your State's Quitline, (2-003-ZSOKHMB) Veterans Smoking Quitline, (4-841-YNVCMRO) 6. cannabis use Cannabis Use Education NO [...] of psychosis Cannabis/marijuana information: http_s://nagi.nih.gov/p ublications/drugfacts/c annabis-marijuana http_s://www.[employer]/eikxygvy-aax-yfjj gsfv-kspxjbmmg-bdxq/ 08/23/2024 ADHD (attention deficit hyperactivity disorder), combined [...] and educated on complaince rx jaleel 05/19 https://www.[facility]/hqrwbydr-vca-deidf ttl-vilqezard-wfzq/ Lamotrigine 200 mg - schedule weekly appointment [...] FND 2. Generalized anxiety disorder -continue medications senior mainframe developer PRESCRIBES Xanax - educated to take as [...] and educated on complaince rx jaleel 05/19 https://www.[facility]/hvmkyzvk-zzz-qmppo zdz-jcjehfvjd-eyhc/ Lamotrigine 200 mg - schedule weekly appointment [...] FND 2. Generalized anxiety disorder -continue medications senior mainframe developer PRESCRIBES Xanax - educated to take as [...] rx 4-5 days continue rx jaleel 05/19 https://www.[facility]/okolduwp-iba-omfed ubg-ymouxpztx-cmxm/ Lamotrigine 100 mg - patient reported depression [...] FND 2. Generalized anxiety disorder -continue medications senior mainframe developer PRESCRIBES Xanax - educated to take as [...] and educated on complaince rx jaleel 05/19 https://www.[facility]/xyqccekv-uis-wbgff nxk-efbcxplll-rwod/ Lamotrigine 200 mg - patient reported depression [...] FND 2. Generalized anxiety disorder -continue medications senior mainframe developer PRESCRIBES Xanax - educated to take as [...] and educated on complaince rx jaleel 05/19 https://www.[facility]/oglvusqn-wpm-hijij gws-yufkwdbkr-kfpb/ Lamotrigine 200 mg - schedule weekly appointment [...] FND 2. Generalized anxiety disorder -continue medications senior mainframe developer PRESCRIBES Xanax - educated to take as [...] stop smoking hotline given Quit - Yes [place] Tobacco Quitline Call a Smoking Quitline The [employer]'s Smoking Quitline, (1-646-24P-QUIT) Smokefree.gov, which connects you with your State's Quitline, (6-155-ZMOVLKG) Veterans Smoking Quitline, (5-004-SSQLPXS) 6. cannabis use Cannabis Use Education NO [...] of psychosis Cannabis/marijuana information: http_s://nagi.nih.gov/p ublications/drugfacts/c annabis-marijuana http_s://www.[facility]/wprpobib-doo-cmpj lhwq-eyflyetpr-pzjn/ Plan Of Treatment No Information Insurance Providers Payer Name Payer Address Payer Phone Subscriber Number Group Number Insured Name Patient Relationship to Insured Coverage Start Date Coverage End Date C[employer] [address] [place] [address] [phone] [id number] TRAVIS MACHADO Child - Insured has Financial [...]
--- OUTSIDE RECORDS SUMMARY | 2024-12-09 10:19 | XMS_ITS | Clinical Summary ---
Author Organization [facility] Address [address] [place] [address] Care Team Providers Care Shingle Catcher Name Role Phone Jennifer Reyes Primary Care Provider [phone] Allergies Active Allergy Reactions Criticality Noted Date Comments Adhesive Rash Medium 01/27/2024 [place] Oil Anaphylaxis High 02/09/2022 Cefdinir Hives,Diarrhea Medium [...] 06/12/2021 Assessment & Plan (06/12/2021 10:35 AM UPKEEP WORKER): Advised no drops in ear Advised wearing cotton in ear when showering for the next week Advised adding 500mg tylenol q6h prn pain to current ibuprofen regimen x 3d Advised f/u if not improving or if worsening over the next week Otalgia, right 06/12/2021 Assessment & Plan (06/12/2021 10:35 AM UPKEEP WORKER): Advised no drops in ear Advised wearing cotton in ear when showering for the next week Advised adding 500mg tylenol q6h prn pain to current ibuprofen regimen x 3d Advised f/u if not improving or if worsening over the next week Dermatitis 06/12/2021 Assessment & Plan (06/12/2021 10:36 AM UPKEEP WORKER): Will add steroid cream bid x 7 days. She was advised f/u in the next week if not improving, sooner if worsening. Tobacco use 06/12/2021 Assessment & Plan (06/12/2021 10:35 AM UPKEEP WORKER): Encouraged continued attempts at smoking cessation, discussed that the wellbutrin may benefit these attempts Moderate episode of recurrent major depressive d isorder 06/12/2021 Assessment & Plan (06/12/2021 10:36 AM UPKEEP WORKER): Continue with care per psychiatry Endometriosis 06/12/2021 Assessment & Plan (06/12/2021 10:36 AM UPKEEP WORKER): Continue with care per cable installation technician Psychogenic nonepileptic seizure 08/09/2020 Migraine without aura and wi thout status migrainosus, not intractable 04/23/2020 Episodes of decreased attentiveness 04/23/2020 Assessment & Plan (06/12/2021 10:36 AM UPKEEP WORKER): Continue with care per psychiatry Mild intermittent asthma 05/24/2018 Assessment & Plan (05/24/2018 4:45 AM UPKEEP WORKER): Present on admission, currently asymptomatic. -Albuterol PRN Multiple food allergies 05/24/2018 Assessment & Plan (05/24/2018 4:47 AM UPKEEP WORKER): Present on admission, currently asymptomatic. -Epinephrine 0.3mg IM PRN anaphylaxis Cervical pain (neck) 12/02/2016 Assessment & Plan (05/24/2018 4:47 AM UPKEEP WORKER): Present on admission. Given description as [...] Type Department Care Team Description 11/25/2024 Telephone [facility] Obstetrics and Gynecology [address] [facility] 7th [address] [place] [address] Sara Lassiter Scheduling Appointments 11/25/2024 Telephone [facility] Minimally Invasive Surgery [address] [place] [address] 7th [address] [place] [address] Sara Alcala MD Follow-up 10/11/2024 2:15 PM CDT Office Visit [facility] Minimally Invasive Surgery [address] [place] [address] 7th [address] [place] [address] Sara Alcala MD Endometriosis (Primary [...] on file Legal Sex Female 11:46 PM UPKEEP WORKER Gender Identity Not on file Sexual [...] Oxygen Saturation 99% 06/02/2022 10: 15 AM UPKEEP WORKER Inhaled Oxygen Concentration - - Weight [...] Influenza Vaccine (#1) 2024 05/25/2020, 2018 Insurance [employer] OPEN ACCESS CIGNA OPEN ACCESS AETNA [facility] IDPA [facility] OPEN ACCESS IDPA [facility] PLAN [facility] HEALTHCARE [facility] Advance Directives For more information, please contact: [phone] Documents on File Type Date Recorded Patient Oracle Database Administrator Expl anation ADVANCE DIRECTIVE 05/24/2018 12:50 AM * Full Code (Latest Code Status on File) Date Activated Date Inactivated Comments 06/27/2020 8:51 AM 06/30/2020 8:59 PM * Full Code Date Activated Date Inactivated Comments 05/24/2018 2:35 AM 05/25/2018 6:00 PM Care Teams Shingle Catcher Relationship Specialty Start Date End Date Jennifer Reyes PA PCP - General Vocational Nursing Instructor 06/12/21
--- OUTSIDE RECORDS SUMMARY | 2024-12-09 10:19 | XMS_ITS | Clinical Summary ---
Author Organization [facility] Address [address] [place] [address] Phone Care Team Providers Care Dry Box Operator Name Role Phone Unavailable Primary Care [...] 05/25/2020, 2018 Medical Devices Implanted Type Area Prepper Device Identifier Shelf Expiration Date Model / Serial / Lot Barrier Interceed Adh 3x4in 4350 - [id number] Implanted:Qt y: 1 on 02/04/2024 by Rahul Kilgore MD at [facility] Adhesion Barrier N/A: Pelvis [employer] [id number] 04/26/2028 4350 / / [id number] Barrier Interceed Adh 3x4in 4350 - [id number] Implanted:Qt y: 1 on 02/04/2024 by Rahul Kilgore MD at [facility] Adhesion Barrier N/A: Pelvis [employer] [id number] 04/26/2028 4350 / / [id number] Insurance [facility] OPEN ACCESS HMO RX [employer] Advance Directives For more information, please contact: [phone] * Full Code (Latest Code Status on File) Date Activated Date Inactivated Comments 02/04/2024 11:42 AM 02/04/2024 4:01 PM * Full Code Date Activated Date Inactivated Comments 02/04/2024 9:22 AM 02/04/2024 11:42 AM
--- OUTSIDE RECORDS SUMMARY | 2024-12-09 10:19 | XMS_ITS | Encounter Summary ---
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
--- OUTSIDE RECORDS SUMMARY | 2024-12-09 10:19 | XMS_ITS | Encounter Summary ---
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 Gender Identity Not on file Sexual Orientation Not on file documented as of this encounter Progress Notes * Crystal Kolb MD - 11/17/2024 10:30 AM CDT Your results from [facility] ER visit from 11/16/2024 arrive to our office-reviewed as discussed over the phone documented in this encounter Plan of Treatment Not on file documented as of this encounter Visit Diagnoses Not on filedocumented in this encounter Care Teams Manager Retention Relationship Specialty Start Date End Date Denise Dyson APRN-CNP [address] [phone] PCP - General Nurse Practitioner 03/25/23 documented as of this encounter
--- OUTSIDE RECORDS SUMMARY | 2024-12-09 10:19 | XMS_ITS | Encounter Summary ---
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 Gender Identity Not on file Sexual Orientation Not on file documented as of this encounter Progress Notes * Crystal Kolb MD - 11/17/2024 10:30 AM CDT Your laboratory tests results from [facility] ER visit on 11/16/2024 arrive to our office-reviewed as discussed over the phone documented in this encounter Plan of Treatment Not on file documented as of this encounter Visit Diagnoses Not on filedocumented in this encounter Care Teams Certified Tower Climber Relationship Specialty Start Date End Date Denise Dyson APRN-CNP [address] [phone] PCP - General Nurse Practitioner 03/25/23 documented as of this encounter
--- OUTSIDE RECORDS SUMMARY | 2024-12-09 10:19 | XMS_ITS | Clinical Summary ---
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
[2024-12-09 11:18] VITALS: BP 134/98; PULSE 89; RESP 18; O2SAT 99
[2024-12-09] MEDS: SODIUM CHLORIDE 0.9% IV 1,000 ML 999 ML IV CONT (11:47)
[2024-12-09] MEDS: FAMOTIDINE 20 MG/2 ML VIAL IV PUSH (11:49)
[2024-12-09] MEDS: METOCLOPRAMIDE HCL INJ 10 MG/2 ML VIAL IV PUSH (11:49)
[2024-12-09 12:00] VITALS: BP 115/76; PULSE 80; RESP 16; O2SAT 98
--- OUTSIDE RECORDS SUMMARY | 2024-12-09 12:04 | XMS_ITS | Encounter Summary ---
Author Organization [facility] Health Address [address] [place] [address] Care Team Providers Care Production Consultant Name Role Phone Denise Dyson APRN-FENCE INSTALLER Primary Care Provider + Encounter Details Date Type Department Care Team (Late st Contact Info) Description 11/17/2024 Results Follow-Up [facility] [address] [place] [address] Crystal Kolb MD [address] [place] [address] Social History Tobacco Use Types [...] on file Legal Sex Female 5:40 AM ASSOCIATE SPA DIRECTOR Gender Identity Not on file Sexual Orientation Not on file documented as of this encounter Progress Notes * Crystal Kolb MD - 11/17/2024 10:30 AM CDT Your laboratory tests results from [facility] ER visit on 11/16/2024 arrive to our office-reviewed as discussed over the phone documented in this encounter Plan of Treatment Not on file documented as of this encounter Visit Diagnoses Not on filedocumented in this encounter Care Teams Production Consultant Relationship Specialty Start Date End Date Denise Dyson APRN-CNP [address] [phone] PCP - General Nurse Practitioner 03/25/23 documented as of this encounter
--- OUTSIDE RECORDS SUMMARY | 2024-12-09 12:04 | XMS_ITS | Clinical Summary ---
Author Organization [facility] Address [address] [place] [address] Care Team Providers Care Credit Advisor Name Role Phone Brent Rubio MD Primary Care Provider Unav ailable Allergies Active Allergy Reactions Criticality Noted Date Comments [place] Oil Anaphylaxis High 02/09/2022 Cefdinir Diarrhea,Hives,Other (see [...] Sex Assigned at Female 06/20/2024 9:14 PM NET MOBILE DEVELOPER Legal Sex Female 8:21 PM CDT Gender Identity Not on file Sexual Orientation Not on file Last Filed Vital Signs Vital Sign Reading Time Taken Comments Blood Pressure 106/58 06/21/2024 1:00 AM NET MOBILE DEVELOPER Pulse 110 06/20/2024 9:05 PM NET MOBILE DEVELOPER Temperature 37.3 C (99.2 F) 06/20/2024 9:05 PM NET MOBILE DEVELOPER Respiratory Rate 18 06/20/2024 9:05 PM NET MOBILE DEVELOPER Oxygen Saturation 94% 06/21/2024 1:00 AM NET MOBILE DEVELOPER Inhaled Oxygen Concentration - - Weight 58.7 kg (129 lb 6.6 oz) 06/20/2024 9:05 P M NET MOBILE DEVELOPER Height 162.6 cm (5' 4) 06/20/2024 9:05 PM NET MOBILE DEVELOPER Body Mass Index 22.21 06/20/2024 9:05 PM NET MOBILE DEVELOPER Plan of Treatment Health Maintenance Due Date [...] to complete this topic Insurance Care Teams Credit Advisor Relationship Specialty Start Date End Date Brent Rubio MD PCP - General 01/04/16
--- OUTSIDE RECORDS SUMMARY | 2024-12-09 12:04 | XMS_ITS | Continuity of Care Document ---
Author Organization [facility] Address [address] [place] [address] Phone Care Team Providers Care Flame Cutting Machine Operator Name Role Phone Conversion MD, Doctor [...] Diagnoses Date Provider Providers Copied on Encounter [facility], [address], [place], [place], [id number], tel:[phone] Conversion Department No Information 1 Conversion Doctor. [address] [place] [address], [address], . [facility], [address], [place], [address], tel:[phone] [facility] No Information 8 Noble Gleason. [address] [place] [address], [id number], . tel:[phone] Family History Family Member Type Diagnosis Age [...]
--- OUTSIDE RECORDS SUMMARY | 2024-12-09 12:04 | XMS_ITS | Encounter Summary ---
Author Organization [facility] Health Address [address] [place] [address] Care Team Providers Care Waste Collection Driver Name Role Phone Denise Dyson APRN-OLVIN Primary Care Provider + Encounter Details Date Type Department Care Team (Late st Contact Info) Description 11/17/2024 Results Follow-Up [facility] SCANN[facility] [address] [place] [address] Crystal Kolb MD [address] [place] [address] Social History Tobacco Use Types [...] on file Legal Sex Female 5:40 AM CELLULAR TOWER CLIMBER Gender Identity Not on file Sexual Orientation Not on file documented as of this encounter Progress Notes * Crystal Kolb MD - 11/17/2024 10:18 AM CDT Please review laboratory tests in MyChart: test negative documented in this encounter Plan of Treatment Not on file documented as of this encounter Visit Diagnoses Not on filedocumented in this encounter Care Teams Waste Collection Driver Relationship Specialty Start Date End Date Denise Dyson APRN-CNP [address] [place] [address] [place] [address] PCP - General Nurse Practitioner 03/25/23 documented as of this encounter
--- OUTSIDE RECORDS SUMMARY | 2024-12-09 12:04 | XMS_ITS | Continuity of Care Document ---
Author Organization [facility] Address [address] [facility] [address] [facility] [address] [place] [address] Phone Care Team Providers Care Rodding Machine Tender Name Role Phone Joan CHOI, Pineda Unavailable [...] Encounter [facility], [address] [place] [address], [address] [place] [address], tel:[phone] [facility] No Information 1 Joan Sung. [address] [place] [address], [address] [place] [address] , . tel:[phone] Referring Provider: Scarlet Li, [address] [place] [address], [place], [place], [address] [place] [address] . tel:[phone] [facility], [address] [place] [address], [id number], tel:[phone] [facility] No Information 1 Yazan Novak. [address] [place] [address], [address], [address] [place] [address] , . tel:[phone] Referring Provider: Scarlet Li, [address] [place] [address], [place], [place], [address] [place] [address] . tel:[phone] [facility], [address] [place] [address], [id number], tel:[phone] [facility] No Information 1 Joan Sung. [address] [place] [address], [address], [id number] , . tel:[phone] Referring Provider: Scarlet Li, [address] [place] [address], [place], [place], [address] [place] [address] . tel:[phone] [facility], [address] [place] [address], [id number], tel:[phone] [facility] No Information 1 Steffi [facility] Gurvinder. [address] [facility], [place], [place], [facility], [place]. tel:[phone] Referring Provider: Scarlet Li, [address] [place] [address], [place], [address] . tel:[phone] PREVENTIVE COUNSELING, INDIV [facility], [address] [place] [address], [place], [place], [id number], tel:[phone] [facility] allergy symptoms (chief complaint) Oth adverse food reactions, not elsewhere classified, initAllergy to nuts other than peanutsAsthmaOthe r allergic rhinitis 1 Steffi [facility] Gurvinder. [address] [facility], [place], [place], [facility], [place]. tel:[phone] Referring Provider: Scarlet Li, [address] [place] [address], [place], [address] . tel:[phone] Family History Family Member Type Diagnosis Age At Onset No Information Payers Payer name Insurance type Covered constitution party ID Kalen flowers(s) Petey [id number] Social History Type Description Quantity Date Captured Comments Sex Female Smoking Status No Information Chief Complaint And Reason For Visit No Information Reason For Referral Reason For Referral No Information Plan Of Treatment Date Type Action Status Future Order: Lab Order ALMOND I gE (F20) ([id number]), Ordered on: Ordered Future Order: Lab Order [place] N ut IgE W/Component Reflex ([id number]), Ordered on: Ordered Future Order: Lab Order Cashew N ut IgE W/Component Reflex ([id number]), Ordered on: Ordered Future Order: Lab Order Hazelnut IgE W/Component Reflex ([id number]), Ordered on: Ordered Future Order: Lab Order IgE, TOT AL ([id number]), Ordered on: Ordered Future Order: Lab Order Macadami a IgE (RF345) ([id number]), Ordered on: Ordered Future Order: Lab Order PECAN NU T IgE (F201) ([id number]), Ordered on: Ordered Future Order: Lab Order PISTACHI O NUT IgE (F203) ([id number]), Ordered on: Ordered History Of Present Illness [...] throat feeling. Reports being highly allergic to [place] Nuts. Eats peanut butter routinely.She reports her [...] for this semester. 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
--- OUTSIDE RECORDS SUMMARY | 2024-12-09 12:04 | XMS_ITS | Encounter Summary ---
Author Organization [facility] Health Address [address] [place] [address] Care Team Providers Care Teaching Pastor Name Role Phone Denise Dyson APRN-UTILITY WORKER PRODUCTION Primary Care Provider + Encounter Details Date Type Department Care Team (Late st Contact Info) Description 11/17/2024 Results Follow-Up [facility] SC[facility] [address] [place] [address] Crystal Kolb MD [address] [place] [address] Social History Tobacco Use Types [...] on file Legal Sex Female 5:40 AM ACCOUNT DEVELOPMENT SPECIALIST Gender Identity Not on file Sexual Orientation Not on file documented as of this encounter Progress Notes * Crystal Kolb MD - 11/17/2024 10:29 AM CDT Your laboratory tests from [facility] ER visit from 11/16/2024 arrived to our office-reviewed as discussed over the phone documented in this encounter Plan of Treatment Not on file documented as of this encounter Visit Diagnoses Not on filedocumented in this encounter Care Teams Teaching Pastor Relationship Specialty Start Date End Date Denise Dyson APRN-CNP [address] [phone] PCP - General Nurse Practitioner 03/25/23 documented as of this encounter
--- OUTSIDE RECORDS SUMMARY | 2024-12-09 12:04 | XMS_ITS | Clinical Summary ---
Author Organization [facility] Address [address] [place] [address] Care Team Providers Care Health Nurse Name Role Phone Denise Dyson TAB CUTTER-IMMUNOLOGY SPECIALIST Primary Care Provider + Source Comments [facility],non-owned Affiliates and Associated Physician Practices is amultiple site organization consisting of ambulatory clinics and hospital sitesin [place], [place], [place] and [place]. This disclosure is being madepursuant to the Care Everywhere program and may not contain all information available regarding this patient. Last updated 18.[facility] Allergies Active Allergy Reactions Criticality Noted Date Comments Adhesive Sensitivity Rash Medium 01/27/2024 Taconite Oil Anaphylaxis High 02/09/2022 Cefdinir Diarrhea,Other,Urtic ar [...] stress disorder) 09/01/2024 Bipolar affective disorder 12/24/2023 rn long term care current use of therapeutic drug 2023 [...] Assessment & Plan: Continue with care per lamp developer Last Assessment & Plan: Continue with care per lamp developer Dermatitis 06/12/2021 02/03/2023 Overview (02/03/2023): Last Assessment [...] Team Description 12/02/2024 Results Follow-Up [facility]ANN[facility] [address] [place] [address] Denise Dyson, RABIA-IMMUNOLOGY SPECIALIST 11/17/2024 Results Follow-Up [facility] [address] [place] [address] Crystal Kolb MD 11/17/2024 Results Follow-Up [facility] [address] [place] [address] Crystal Jeffrey MD 11/17/2024 Results Follow-Up [facility] [address] [place] [address] Crystal Jeffrey MD 11/17/2024 Results Follow-Up [facility] [address] [place] [address] Crystal Jeffrey MD from Last 3 Months Immunizations Immunization Administration Dates Next Due INFLUENZA A G4O9-16 VACCINE 05/25/2020 INFLUENZA VACCINE, QUADR. (F LUZONE; [...] on file Legal Sex Female 5:40 AM TIN FLIPPER Gender Identity Not on file Sexual Orientation [...] - 09/05/2024 11:07 PM CDT Performed at: [address] [id number] Induction Heating Equipment Setter: Eloise Milian MD, Phone: [phone] Denise Dyson APRN-IMMUNOLOGY SPECIALIST LAB - MICROBIOLOGY ORDER TU Final Result Performing Organization Address [facility] de Phone Number [facility] INSURANCE BILL [address] [place] [address] * HIV-1 HIV-2 ANTIBODY + HIV P24 [...] - 09/03/2024 8:11 AM CDT Performed at: [address] [id number] Induction Heating Equipment Setter: Kevin Dan PhD, Phone: [phone] Denise Dyson APRN-IMMUNOLOGY SPECIALIST LAB - CHEMISTRY ORDERABL ES Final Result Performing Organization Address [facility] Co de Phone Number [facility] INSURANCE BILL [address] [place] [address] * HEPATITIS C ANTIBODY (09/02/2024 2:47 PM [...] 7:09 AM CDT Performed at: [facility] [address] [place], [place] [id number] Induction Heating Equipment Setter: Kevin Dan PhD, Phone: [phone] Denise Dyson APRN-IMMUNOLOGY SPECIALIST LAB - CHEMISTRY ORDERABL ES Final Result [facility] INSURANCE BILL [address] [place] [address] from Last 3 Months or Most Recently Relevant to Health Maintenance Insurance [facility] Care Teams Health Nurse Relationship Specialty Start Date End Date Denise Dyson APRN-IMMUNOLOGY SPECIALIST [address] [place] [address] [address] [place] [address] PCP - General Nurse Practitioner 03/25/23
--- OUTSIDE RECORDS SUMMARY | 2024-12-09 12:04 | XMS_ITS | Encounter Summary ---
Author Organization [facility] Health Address [address] [place] [address] Care Team Providers Care Linseed Cake Trimmer Name Role Phone Denise Dyson APRN-PACKER SAUSAGE AND WIENER Primary Care Provider + Encounter Details Date Type Department Care Team (Late st Contact Info) Description 11/17/2024 Results Follow-Up [facility] [address] [place] [address] Crystal Kolb MD [address] [place] [address] Social History Tobacco Use Types [...] on file Legal Sex Female 5:40 AM APPLICATION HELPER Gender Identity Not on file Sexual Orientation Not on file documented as of this encounter Progress Notes * Crystal Kolb MD - 11/17/2024 10:30 AM CDT Your results from [facility] ER visit from 11/16/2024 arrive to our office-reviewed as discussed over the phone documented in this encounter Plan of Treatment Not on file documented as of this encounter Visit Diagnoses Not on filedocumented in this encounter Care Teams Linseed Cake Trimmer Relationship Specialty Start Date End Date Denise Dyson APRN-CNP [address] [phone] PCP - General Nurse Practitioner 03/25/23 documented as of this encounter
--- OUTSIDE RECORDS SUMMARY | 2024-12-09 12:04 | XMS_ITS | Clinical Summary ---
Author Organization [facility] Address [address] [place] [address] Care Team Providers Care Motor Patrol Operator Name Role Phone Unavailable Primary Care Provider Unavailabl e Social History Tobacco Use Types Packs/Day Years Used Date Smoking Tobacco: Never Assessed Comments Unknown Sex and Gender Information Value Date Recorded Sex Assigned at Not on file Legal Sex Female 1:46 PM CLINICAL PROJECT LEADER Gender Identity Not on file Sexual Orientation [...]
--- OUTSIDE RECORDS SUMMARY | 2024-12-09 12:04 | XMS_ITS | Clinical Summary ---
Author Organization [facility] Address [address] [place] [address] Phone Care Team Providers Care Decal Cutter Name Role Phone Jennifer Reyes Primary Care Provider [phone] Allergies Active Allergy Reactions Criticality Noted Date [...] Assessment & Plan: Continue with care per assembler radio and electrical Otalgia of right ear 06/12/2021 Overview (12/11/2021): [...] Insurance [employer] [place] - [place] Care Teams Decal Cutter Relationship Specialty Start Date End Date Jennifer Reyes PA PCP - General Family Medicine 01/02/22
--- OUTSIDE RECORDS SUMMARY | 2024-12-09 12:04 | XMS_ITS | Clinical Summary ---
Author Organization [facility] Address [address] [place] [address] Care Team Providers Care Cold Rolling Machine Setter Name Role Phone Jennifer Reyes Primary Care Provider [phone] Allergies Active Allergy Reactions Criticality Noted Date Comments Adhesive Rash Medium 01/27/2024 [place] Oil Anaphylaxis High 02/09/2022 Cefdinir Hives,Diarrhea Medium [...] 06/12/2021 Assessment & Plan (06/12/2021 10:35 AM HIGH SCHOOL FOREIGN LANGUAGE TUTOR): Advised no drops in ear Advised wearing cotton in ear when showering for the next week Advised adding 500mg tylenol q6h prn pain to current ibuprofen regimen x 3d Advised f/u if not improving or if worsening over the next week Otalgia, right 06/12/2021 Assessment & Plan (06/12/2021 10:35 AM HIGH SCHOOL FOREIGN LANGUAGE TUTOR): Advised no drops in ear Advised wearing cotton in ear when showering for the next week Advised adding 500mg tylenol q6h prn pain to current ibuprofen regimen x 3d Advised f/u if not improving or if worsening over the next week Dermatitis 06/12/2021 Assessment & Plan (06/12/2021 10:36 AM HIGH SCHOOL FOREIGN LANGUAGE TUTOR): Will add steroid cream bid x 7 days. She was advised f/u in the next week if not improving, sooner if worsening. Tobacco use 06/12/2021 Assessment & Plan (06/12/2021 10:35 AM HIGH SCHOOL FOREIGN LANGUAGE TUTOR): Encouraged continued attempts at smoking cessation, discussed that the wellbutrin may benefit these attempts Moderate episode of recurrent major depressive d isorder 06/12/2021 Assessment & Plan (06/12/2021 10:36 AM HIGH SCHOOL FOREIGN LANGUAGE TUTOR): Continue with care per psychiatry Endometriosis 06/12/2021 Assessment & Plan (06/12/2021 10:36 AM HIGH SCHOOL FOREIGN LANGUAGE TUTOR): Continue with care per merchandise marker Psychogenic nonepileptic seizure 08/09/2020 Migraine without aura and wi thout status migrainosus, not intractable 04/23/2020 Episodes of decreased attentiveness 04/23/2020 Assessment & Plan (06/12/2021 10:36 AM HIGH SCHOOL FOREIGN LANGUAGE TUTOR): Continue with care per psychiatry Mild intermittent asthma 05/24/2018 Assessment & Plan (05/24/2018 4:45 AM HIGH SCHOOL FOREIGN LANGUAGE TUTOR): Present on admission, currently asymptomatic. -Albuterol PRN Multiple food allergies 05/24/2018 Assessment & Plan (05/24/2018 4:47 AM HIGH SCHOOL FOREIGN LANGUAGE TUTOR): Present on admission, currently asymptomatic. -Epinephrine 0.3mg IM PRN anaphylaxis Cervical pain (neck) 12/02/2016 Assessment & Plan (05/24/2018 4:47 AM HIGH SCHOOL FOREIGN LANGUAGE TUTOR): Present on admission. Given description as unilateral [...] Type Department Care Team Description 11/25/2024 [address] [facility] Obstetrics and Gynecology [address] 7th Floor [address] [place] [address] Sara Lassiter Scheduling Appointments 11/25/2024 Telephone [facility] Minimally Invasive Surgery [address] [place] [address] 7th [address] [place] [address] Sara Alcala MD Follow-up 10/11/2024 2:15 PM CDT Office Visit [facility] [address] [place] [address] [address]th [address] [place] [address] Sara Alcala MD Endometriosis (Primary [...] on file Legal Sex Female 11:46 PM HIGH SCHOOL FOREIGN LANGUAGE TUTOR Gender Identity Not on file Sexual Orientation [...] Oxygen Saturation 99% 06/02/2022 10: 15 AM HIGH SCHOOL FOREIGN LANGUAGE TUTOR Inhaled Oxygen Concentration - - Weight 57.5 [...] Influenza Vaccine (#1) 2024 05/25/2020, 2018 Insurance [facility] OPEN ACCESS CIGNA OPEN ACCESS AETNA [facility] IDPA [facility] OPEN ACCESS IDPA [facility] PLAN [facility] Advance Directives For more information, please contact: [phone] Documents on File Type Date Recorded Patient Blend Plant Operator Expl anation ADVANCE DIRECTIVE 05/24/2018 12:50 AM * Full Code (Latest Code Status on File) Date Activated Date Inactivated Comments 06/27/2020 8:51 AM 06/30/2020 8:59 PM * Full Code Date Activated Date Inactivated Comments 05/24/2018 2:35 AM 05/25/2018 6:00 PM Care Teams Cold Rolling Machine Setter Relationship Specialty Start Date End Date Jennifer Reyes PA PCP - General Graduate Fellow 06/12/21
--- OUTSIDE RECORDS SUMMARY | 2024-12-09 12:04 | XMS_ITS | Clinical Summary ---
Author Organization [facility] Address [address] [place] [address] Phone Care Team Providers Care Adult Literacy Instructor Name Role Phone Unavailable Primary Care Provider [...] 05/25/2020, 2018 Medical Devices Implanted Type Area Environmental Science Instructor Device Identifier Shelf Expiration Date Model / Serial / Lot Barrier Interceed Adh 3x4in 4350 - [id number] Implanted:Qt y: 1 on 02/04/2024 by Rahul Kilgore MD at [facility] Adhesion Barrier N/A: Pelvis [employer] [id number] 04/26/2028 4350 / / [id number] Barrier Interceed Adh 3x4in 4350 - [id number] Implanted:Qt y: 1 on 02/04/2024 by Rahul Kilgore MD at [facility] Adhesion Barrier N/A: Pelvis [employer] [id number] 04/26/2028 4350 / / [id number] Insurance [facility] OPEN ACCESS HMO RX [employer] Advance Directives For more information, please contact: [phone] * Full Code (Latest Code Status on File) Date Activated Date Inactivated Comments 02/04/2024 11:42 AM 02/04/2024 4:01 PM * Full Code Date Activated Date Inactivated Comments 02/04/2024 9:22 AM 02/04/2024 11:42 AM
--- OUTSIDE RECORDS SUMMARY | 2024-12-09 12:04 | XMS_ITS | Encounter Summary ---
Author Organization [facility] Health Address [address] [place] [address] Care Team Providers Care Ripening Room Attendant Name Role Phone Denise Dyson APRN-ROTO ROOTER OPERATOR Primary Care Provider + Encounter Details Date Type Department Care Team (Late st Contact Info) Description 12/02/2024 Results Follow-Up [facility] [address] [place] [address] Denise Dyson APRN-CNP [address] [place] [address] Social History Tobacco Use Types [...] on file Legal Sex Female 5:40 AM DIRECTOR OF MEDICAL SERVICES Gender Identity Not on file Sexual Orientation Not on file documented as of this encounter Plan of Treatment Not on file documented as of this encounter Visit Diagnoses Not on filedocumented in this encounter Care Teams Ripening Room Attendant Relationship Specialty Start Date End Date Denise Dyson APRN-ROTO ROOTER OPERATOR [address] [place] [address] PCP - General Nurse Practitioner 03/25/23 documented as of this encounter
[2024-12-09 12:07] LABS: Hematocrit 40.1 % (37.0-47.0); Hemoglobin 14.0 g/dL (12.0-15.0); Immature Granulocyte Percent A 0.3 % (0-0.5); Lymphocytes Absolute Auto 0.67 K/mm3 (0.9-3.2); Mean Corpuscular HGB Conc 34.9 g/dl (32-36); Mean Corpuscular Hemoglobin 29.8 pg (26-34); Mean Corpuscular Volume 85.3 fl (80-100); Nucleated Red Blood Cells Absolute Auto 0.000 K/mm3 (0.0-0.012); Nucleated Red Blood Cells Perc 0.0 % (0.0-0.2); Platelet Count Result 286 k/mm3 (150-375); Red Blood Count 4.70 M/mm3 (4.2-5.4); White Blood Count 11.5 K/mm3 (4.5-10.0)
[2024-12-09 12:21] LABS: Alanine Aminotransferase 30 U/L (6-35); Albumin Level 5.2 g/dL (3.5-5.1); Alkaline Phosphatase 67 U/L (38-126); Anion Gap 15 mmol/L (4-12); Aspartate Amino Transferase 43 U/L (14-36); Bilirubin,Total 1.2 mg/dL (0.2-1.3); Blood Urea Nitrogen 15 mg/dL (7-17); Calcium 10.1 mg/dL (8.4-10.2); Carbon Dioxide 23 mmol/L (22-30); Chloride 99 mmol/L (98-107); Estimated CRCL calculation 101 ml/min; Estimated Glomerular Filt Rate > 60; Glucose 115 mg/dL (65-110); Potassium 3.2 mmol/L (3.4-5.0); Sodium 137 mmol/L (137-145); Total Protein 8.5 g/dL (6.3-8.2)
[2024-12-09 12:54] LABS: BEDSIDEPREGUCG Negative (Negative)
[2024-12-09] MEDS: HALOPERIDOL LACTATE 5 MG/ML VIAL IM (13:06)
--- NOTE | 2024-12-09 13:07 | ED_ITS ---
HPI - Nausea/Vomiting/Diarrhea General Chief complaint: Nausea/Vomiting/Diarrhea Stated complaint: n/v Time Seen by Provider: 12/09/24 10:58 Source: patient Mode of arrival: ambulatory Limitations: no limitations History of Present Illness HPI Narrative: Patient is a 24-year-old female who presents the ED with report of nausea, vomiting. Patient reports having persistent nausea and vomiting since Thursday. States she has had difficulty keeping down food and drink. Reports diffuse abdominal pain. Reports hot and cold sensation. Denies known fevers. Denies diarrhea, constipation. Reports having a similar episode of nausea and vomiting a few weeks ago. Patient was seen in the ED here and told was likely a gastroenteritis. Patient is a daily marijuana user. Related Data Home Medications ?Medication ?Instructions ?Recorded ?Confirmed ?Last Taken ?Type aripiprazole 10 mg tablet 10 mg PO HS 06/16/24 06/16/24 Unknown History lamotrigine 200 mg tablet 200 mg PO HS 06/16/24 06/16/24 Unknown History Allergies Allergy/AdvReac Type Severity Reaction Status Date / Time tree nut Allergy Severe Anaphylaxis Verified 11/20/24 16:52 clindamycin Allergy Mild Rash Verified 11/20/24 16:52 doxycycline Allergy Mild Rash Verified 11/20/24 16:52 morphine Allergy Mild Agitated Verified 11/20/24 16:52 cefdinir (From Omnicef) Allergy Hives Verified 11/20/24 16:52 elagolix (From Orilissa) AdvReac Migraine Verified 11/20/24 16:52 escitalopram (From Lexapro) AdvReac Itching Verified 11/20/24 16:52 Review of Systems 2 Review of Systems: All systems reviewed & are unremarkable except as noted in HPI. All systems reviewed & are unremarkable except as noted in HPI and below PMFSH Past Medical History Medical History History of suicide attempt Depression Endometriosis Asthma Pelvic pain Anxiety Surgical History Surgical History H/O laparoscopy Family History Family History Mother No pertinent past medical history Social History Social History Smoking status: Current some day smoker Tobacco type: e-cigarettes/vaping Alcohol intake: current Alcohol use details: 1-2/MONTH Substance use: current Substance use type: marijuana Other substance usage details: Daily Living arrangements: with family Additional living arrangements comments: MOM Gender identity (if verbalized by the patient): Female Spiritual care concerns: No Exam 2 Narrative: GENERAL: Mildly ill appearing, well-nourished, non-toxic, in no acute distress. HEAD: Normocephalic, atraumatic. RESPIRATORY: Airway patent, respirations nonlabored. Clear to auscultation bilaterally, no rales, rhonchi, wheezing. CARDIOVASCULAR: Regular rate and rhythm without murmurs, rubs, or gallops. ABDOMINAL: Soft, mild diffuse lower abdominal tenderness, nondistended. Normoactive BS. MUSCULOSKELETAL: Moves all extremities. No gross deformities. SKIN: Warm, dry, normal color. NEURO: A&O X3. Speech clear. No ataxic movements. PSYCHIATRIC: Appropriate mood and affect. Normal interaction. Course Vital Signs Vital signs: Vital Signs Temperature 97.9 F 12/09/24 10:17 Pulse Rate 110 H 12/09/24 10:17 Respiratory Rate 16 12/09/24 10:17 Blood Pressure 144/94 H 12/09/24 10:17 Pulse Oximetry 100 12/09/24 10:17 Oxygen Delivery Room Air 12/09/24 10:17 Temperature 98.9 F 12/09/24 14:16 Pulse Rate 95 12/09/24 14:16 Respiratory Rate 16 12/09/24 14:16 Blood Pressure 101/59 L 12/09/24 14:16 Pulse Oximetry 100 12/09/24 14:16 Oxygen Delivery Room Air 12/09/24 10:17 MDM - Nausea/Vomiting/Diarrhea MDM Narrative Medical decision making narrative: Patient presented to ED with several day history of nausea vomiting, difficulty keeping down food and drink. Daily marijuana user. History of similar episode a few weeks ago. Patient borderline tachycardic upon arrival, this was resolved by the time of evaluation. Afebrile here. Cbc with blood cell count of 11.5. CMP with potassium 3.2. Anion gap of 15. Kidney function is stable. Magnesium WNL. Normal LFTs and lipase. UA with 3+ ketones, trace leuks, no other significant signs of infection. Urine is negative. CT abd/pelvis obtained and without acute findings. Patient updated on lab and imaging results. She was given fluids, Reglan, Benadryl, Pepcid, Haldol. On re-evaluation, she is feeling much improved. Able to tolerate p.o. intake. Given oral potassium replacement. Feel she is safe for discharge home at this time. Patient feels comfortable going home. Discussed possibility of gastroenteritis versus cyclic vomiting versus cannabinoid induced hyperemesis syndrome. Encouraged patient to discontinue marijuana use. Will discharge with nausea medicine for home. Given strict return precautions. She agrees with plan. Discharged in stable condition. Medical Records Attestation: I reviewed the patient's medical records. Lab Data Attestation: I reviewed the patient's lab results. 12/09/24 11:51 12/09/24 11:51 Labs: Lab Results 12/09/24 12/09/24 12/09/24 Range/Units 11:51 12:50 12:52 WBC 11.5 H (4.5-10.0) K/mm3 RBC 4.70 (4.2-5.4) M/mm3 Hgb 14.0 (12.0-15.0) g/dL Hct 40.1 (37.0-47.0) % MCV 85.3 (80-100) fl MCH 29.8 (26-34) pg MCHC 34.9 (32-36) g/dl RDW 12.7 (11.5-14.5) % Plt Count 286 (150-375) k/mm3 MPV 11.6 H (7.4-10.4) fl Immature Gran % (Auto) 0.3 (0-0.5) % Neut % (Auto) 87.6 H (45.5-73.1) % Lymph % (Auto) 5.8 L (18.3-44.2) % Crowley % (Auto) 5.9 (2.6-8.5) % Eos % (Auto) 0.1 (0-4.4) % Baso % (Auto) 0.3 (0.2-1.2) % Lymph # (Auto) 0.67 L (0.9-3.2) K/mm3 Crowley # (Auto) 0.7 H (0.1-0.6) K/mm3 Eos # (Auto) 0.0 (0-0.3) K/mm3 Baso # (Auto) 0.0 (0.0-0.1) K/mm3 Abs Immat Gran (auto) 0.04 H (0.00-0.031) K/mm3 Absolute Neuts (auto) 10.1 H (1.3-6.7) K/mm3 Absolute Nucleated RBC 0.000 (0.0-0.012) K/mm3 Nucleated RBC % 0.0 (0.0-0.2) % Sodium 137 (137-145) mmol/L Potassium 3.2 L (3.4-5.0) mmol/L Chloride 99 (98-107) mmol/L Carbon Dioxide 23 (22-30) mmol/L Anion Gap 15 H (4-12) mmol/L BUN 15 (7-17) mg/dL Creatinine 0.63 L (0.7-1.0) mg/dL Estim Creat Clear Calc 101 ml/min Estimated GFR > 60 (59 - ) Glucose 115 H (65-110) mg/dL Calcium 10.1 (8.4-10.2) mg/dL Magnesium 1.9 (1.6-2.3) mg/dL Total Bilirubin 1.2 (0.2-1.3) mg/dL AST 43 H (14-36) U/L ALT 30 (6-35) U/L Alkaline Phosphatase 67 (38-126) U/L Total Protein 8.5 H (6.3-8.2) g/dL Albumin 5.2 H (3.5-5.1) g/dL Lipase 51 (23-300) U/L Urine Color Dark yellow (Yellow) Urine Appearance Clear (Clear) Urine pH 6.5 (5.0-9.0) Ur Specific [place] 1.029 (1.001-1.035) Urine Protein 3+ H (Negative) mg/dL Urine Glucose (UA) Negative (Negative) mg/dL Urine Ketones 3+ H (Negative) mg/dL Ur Blood (Man) Negative (Negative) Urine Nitrate Negative (Negative) Urine Bilirubin Negative (Negative) Urine Urobilinogen 1.0 (<2.0) mg/dL Leukocyte Esterase Rfl Trace H (Negative) HEBER/UL Urine RBC 0-2 (0-2) /hpf Urine WBC 0-5 (0-3) /hpf Ur Squamous Epith Cells Moderate (Few) /hpf Urine Bacteria 1+ H /hpf Urine Casts 3-5 POC Urine HCG, Qual Negative (Negative) Imaging Data Attestation: I personally reviewed and interpreted this imaging study as follows: Radiologist's impression: ITS Impressions Abdomen/Pelvis CT 12/09/24 13:41 IMPRESSION: 1. No acute intra-abdominal/pelvic process. Discharge Plan Discharge Clinical Impression: Dehydration Nausea and vomiting Qualifiers: Vomiting type: unspecified Qualified Code(s): R11.2 - Nausea with vomiting, unspecified Patient Disposition: Home Condition: Stable Instructions: Antibiotic Form, Clear Liquid Diet (ED), Gastroenteritis (ED), Acute Nausea and Vomiting (ED) Patient Language: Dominican Prescriptions: New metoclopramide HCl 5 mg tablet 5 mg PO Q6H PRN (Reason: nausea and vomiting) Qty: 15 0RF No Action aripiprazole 10 mg tablet 10 mg PO HS lamotrigine 200 mg tablet 200 mg PO HS hydrocodone-acetaminophen 5-325 mg tablet 1 tablet PO Q4H PRN (Reason: pain) Qty: 30 0RF prochlorperazine maleate [Compazine] 10 mg tablet 10 mg PO Q8H PRN (Reason: nausea and vomiting) Qty: 20 0RF ketorolac 10 mg tablet 10 mg PO Q8H PRN (Reason: pain) 5 Days Qty: 20 0RF Rx Instructions: maximum total duration of 5 days from all oral, intranasal, or parenteral formulations Follow-up/Referrals: Kiel,Denise Rodríguez APRN [Primary Care Provider] -
[2024-12-09 13:09] VITALS: BP 149/96; PULSE 81; RESP 16; O2SAT 99
[2024-12-09 13:25] LABS: Add Urine Microscopic? YES; Appearance Urine Clear (Clear); Glucose Urine UA Negative (Negative); Leukocyte Esterase Ur Trace LEU/UL (Negative); Nitrate Urine Negative (Negative); Specific Grav Ur 1.029 (1.001-1.035)
[2024-12-09] MEDS: POTASSIUM CHLORIDE 20 MEQ ER TABLET 40 MEQ PO (14:14)
[2024-12-09 14:16] VITALS: BP 101/59; PULSE 95; RESP 16; TEMP 37.2; O2SAT 100
[2024-12-09 14:26] LABS: Lipase 51 U/L (23-300)
[2024-12-09 14:42] LABS: Magnesium 1.9 mg/dL (1.6-2.3)
== END 2024-12-09 14:58 | disposition home or self-care (01) ==
PROVIDERS: Emergency Provider Physician Assistant; PCP Nurse Practitioner Family
DX: R11.2 Nausea with vomiting, unspecified (principal); E86.0 Dehydration; J45.909 Unspecified asthma, uncomplicated; F41.9 Anxiety disorder, unspecified; F32.A Depression, unspecified; F17.290 Nicotine dependence, other tobacco product, uncomplicated; Z79.899 Other long term (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
CPT/HCPCS: 36415; 74177; 80053; 81001; 81025; 83690; 83735; 85025; 96361; 96374; 96375; 99284; A9270; J1200; J1630; J2765; J7030; Q9967

== ENCOUNTER 2025-01-18 12:59 | Outpatient (CLI) | payer OTHER, SELFPAY ==
--- OUTSIDE RECORDS SUMMARY | 2025-01-18 13:05 | XMS_ITS | Patient Health Record ---
Author Organization [facility] [employer] Address [address] [facility] [address] [place] [address] Care Team Providers Care Addiction Treatment Counselor Name Role Phone Herlinda Arriola Unavailable [phone] Allergies Allergen (clinical drug ingredient) Drug/Non Drug Allergy documented on EMR Reaction Allergy Type Onset Date Status Tree nut TREE NUT (uncoded) Unknown Allergy 08/21/2023 Active escitalopram Lexapro Unknown Drug Allergy 08/21/2023 Act adam Omnicef Unknown Drug Allergy 08/21/2023 Active clindamycin Clindamycin Unknown Drug Allergy Act adam doxycycline Doxycycline Unknown Drug Allergy Act adam morphine Morphine Unknown Drug Allergy Active Reason For Referral No Information Medications Medication SIG (Take, Route, Frequency, Duration) Notes Start Date End Date Status lamoTRIgine 150 MG Tablet 1 tablet Oral Once a day; Duration: 30 days Active DULoxetine HCl 30 MG Capsule Delayed Release Particles 1 capsule Orally Once a day; Duration: 90 days Active ARIPiprazole 10 MG Tablet 1 tablet Oral Once a day; Duration: 90 days Active hydrOXYzine HCl 10 MG Tablet 1 tablet Orally three times a day; Duration: 90 days As needed Active Immunizations Vaccine Route Administration Date Status Comme nts Novel [id number], preservative free Unknown 05/25/2020 Administered Pfizer Biontech Covid-19 Vac cine 2nd dose Unknown 09/17/2020 Administered Pfizer Biontech Covid-19 Vac cine 2nd dose Unknown 10/08/2020 Administered Social History Tobacco Use: Social History Observation Description Date Details (start date - stop date) Current Smoker NA - NA Sex Assigned At : Social History Observation Description Sex Assigned At Female Social History Miscellaneous: Social Info Question Answer Notes Advance Care Planning Are you your own decision-maker Yes Do you have Power of Filing Writer for Health or [facility]? No Sexual History: Social Info Question Answer Notes Sexual History Had sex in the past 12 months (vaginal, oral, or anal)? Yes with Men only Drug/Alcohol: Social Info Question Answer Notes Drugs Have you used drugs other than those for medical reasons in the past 12 months? Yes AUDIT-C (Standard) Did you have a drink containing alcohol in the past year? Yes How often did you have six or more drinks on one occasion in the past year? Less than monthly (1 point) How many drinks did you have on a typical day when you were drinking in the past year? 1 or 2 drinks (0 point) How often did you have a drink containing alcohol in the past year? Monthly or less (1 point) Points 2 Interpretation Negative Caffeine Intake: more than 4 cups per day Tobacco Use: Social Info Question Answer Notes Tobacco Control (Standard) Tobacco use: Current smoker Additional Findings: Tobacco user e-cigarette Tobacco use other than smoking: Are you an other tobacco user? Yes ecig Additional Details Category Social Info Options Details Migrated Social History Migrated Social History Alcohol Intake: Occasional 07/10/2020,Tobacco Years: Never smoker 04/24/2020,Smoking Status: 3 06/08/2023 Drug/Alcohol: Do you smoke marijuana? Adm its Do you drink alcohol? 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 SexualityWhat is [...] NoDo you have a medical power of straight knife machine cutter?: NoPublic Health and TravelHave you been to [...] Problem Bipolar affective disorder, currently depressed, mild (956395616) Bipolar disorder, current episode depressed, mild (F31.31) 08/21/19 Active confirmed Problem Generalized anxiety disorder (17083578) Generalized anxiety disorder (F41.1) 08/21/19 Active confirmed Problem Posttraumatic stress disorder (43482953) Post-traumatic stress disorder, chronic (F43.12) 08/21/19 Active confirmed Problem Insomnia disorder related to another mental disorder (17533857) Insomnia due to other mental disorder (F51.05) 08/21/19 Active confirmed Problem Screening for cardiovascular system disease (021534842) Encounter for screening for cardiovascular disorders (Z13.6) Active confirmed Problem Long-term current use of drug therapy (040499408) Other senior living (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 (Z79.899) 08/21/19 Active confirmed Problem Depression Screening (911823581) Encounter for screening for depression (Z13.31) Active confirmed Problem Attention deficit hyperactivity disorder (109459209) ADHD (attention deficit hyperactivity disorder), combined type (F90.2) Active confirmed Problem Bipolar disorder (03479754) Bipolar depression (F31.9) Active confirmed Vital Signs Heart Rate 90 /min 01/11/2025 Respiratory Rate 18 /min 12/14/2024 Height-cm 162.56 cm 01/11/2025 Blood pressure diastolic 64 mm Hg 01/11/2025 Weight-kg 55.34 kg 01/11/2025 Height 64.00 in 01/11/2025 Blood pressure systolic 102 mm Hg 01/11/2025 Weight 122 lbs 01/11/2025 BMI 20.94 kg/m2 01/11/2025 Encounters Encounter Location Date Provider Diagnosis [address]17 [address] [address] 02/01/2024 Herlinda Arirola Bipolar disorder, current episode depressed, mild F31.31 ; Generalized anxiety disorder F41.1 ; Insomnia due to other mental disorder F51.05 ; Post-traumatic stress disorder, chronic F43.12 and Other senior living (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 Z79.899 [address] [place] [address] [place] [address] 02/29/2024 Herlindahugo Arriola Bipolar disorder, current episode depressed, mild F31.31 ; Generalized anxiety disorder F41.1 ; Insomnia due to other mental disorder F51.05 ; Post-traumatic stress disorder, chronic F43.12 and Other senior living (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 Z79.899 [facility], [facility] [address] [place] [address] [place] [address] 04/14/2024 Herlinda Thery Bipolar disorder, current episode depressed, mild F31.31 ; Generalized anxiety disorder F41.1 ; Insomnia due to other mental disorder F51.05 ; Post-traumatic stress disorder, chronic F43.12 and Other senior living (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 Z79.899 [facility], [facility] [address] [facility] [address] [place] [address] 05/16/2024 Herlinda Thery Bipolar disorder, current episode depressed, mild F31.31 ; Generalized anxiety disorder F41.1 ; Insomnia due to other mental disorder F51.05 ; Post-traumatic stress disorder, chronic F43.12 and Other senior living (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 Z79.899 [facility] [employer], [facility] [address] [facility] [address] [place] [address] 06/02/2024 Herlindasondra Arriola Bipolar disorder, current episode depressed, mild F31.31 ; Generalized anxiety disorder F41.1 ; Insomnia due to other mental disorder F51.05 ; Post-traumatic stress disorder, chronic F43.12 and Other long term care social worker (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 Z79.899 [facility] [employer], [facility] [address] [facility] [address] [place] [address] 06/10/2024 Herlinda Thery Bipolar disorder, current episode depressed, mild F31.31 ; Generalized anxiety disorder F41.1 ; Insomnia due to other mental disorder F51.05 ; Post-traumatic stress disorder, chronic F43.12 and Other long term care social worker (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 Z79.899 [facility] [employer], [facility] [address] [place] [address] [place] [address] 06/24/2024 Herlinda Thery Bipolar disorder, current episode depressed, mild F31.31 ; Generalized anxiety disorder F41.1 ; Insomnia due to other mental disorder F51.05 ; Post-traumatic stress disorder, chronic F43.12 and Other senior living (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 Z79.899 [facility] [employer] [place] [address] [facility] [address] [place] [address] 08/08/2024 Herlinda Thery Encounter for screen ing for depression Z13.31 ; Encounter for screening for cardiovascular disorders Z13.6 ; Bipolar disorder, current episode depressed, mild F31.31 ; Generalized anxiety disorder F41.1 ; Insomnia due to other mental disorder F51.05 ; Post-traumatic stress disorder, chronic F43.12 ; Other long term care social worker (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 Z79.899 and ADHD (attention deficit hyperactivity disorder), combined type F90.2 [facility] [employer] [address] [address] 08/23/2024 Herlinda Thery Encounter for screen ing for depression Z13.31 ; Encounter for screening for cardiovascular disorders Z13.6 ; Bipolar disorder, current episode depressed, mild F31.31 ; Generalized anxiety disorder F41.1 ; Insomnia due to other mental disorder F51.05 ; Post-traumatic stress disorder, chronic F43.12 ; Other long term care social worker (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 Z79.899 ; ADHD (attention deficit hyperactivity disorder), combined type F90.2 and Nicotine use Z72.0 [facility] [employer] [address] [facility] [address] [place] [address] 09/16/2024 Herlinda Thery [facility] [employer] [place] [id number] [facility] [address] [facility] [address] [place] [address] 11/22/2024 Herlinda Thery Encounter for screen ing for depression Z13.31 ; Bipolar depression F31.9 ; Encounter for screening for cardiovascular disorders Z13.6 ; Generalized anxiety disorder F41.1 ; Insomnia due to other mental disorder F51.05 ; Post-traumatic stress disorder, chronic F43.12 ; Other senior living (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 Z79.899 ; ADHD (attention deficit hyperactivity disorder), combined type F90.2 and Nicotine use Z72.0 [facility] [employer] [place] [address] [facility] [address] [place] [address] 12/14/2024 Herlinda Thery Encounter for screen ing for depression Z13.31 ; Bipolar depression F31.9 ; Encounter for screening for cardiovascular disorders Z13.6 ; Generalized anxiety disorder F41.1 ; Insomnia due to other mental disorder F51.05 ; Post-traumatic stress disorder, chronic F43.12 ; Other senior living (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 Z79.899 ; ADHD (attention deficit hyperactivity disorder), combined type F90.2 and Nicotine use Z72.0 [facility] [address] [place] [address] [place] [address] 01/11/2025 Herlinda Thery Bipolar depression F31.9 ; Generalized anxiety disorder F41.1 ; Insomnia due to other mental disorder F51.05 ; Post-traumatic stress disorder, chronic F43.12 and ADHD (attention deficit hyperactivity disorder), combined type F90.2 [facility] [address] [place] [address] [place] [address] 04/13/2024 Herlinda Messagem[employer]el [facility], [facility] [address] [place] [address] [place] [address] 05/16/2024 Herlinda Messagemindel [facility], [facility] [address] [place] [address] [place] [address] 08/22/2024 Herlinda Thery [facility], [facility] [address] [place] [address] [place] [address] 08/22/2024 Herlinda Thery [facility], [facility] [address] [facility] [address] [place] [address] 08/22/2024 Herlinda Messagemindy [facility], [facility] [address] [place] [address] [place] [address] 11/22/2024 Herlinda Thery [facility], [facility] [address] [place] [address] [place] [address] 12/12/2024 Herlinda Thery [facility], [facility] [address] [place] [address] [place] [address] 12/12/2024 Herlinda Thery [facility], [facility] [address] [place] [address] [place] [address] 12/12/2024 Herlinda Therel Assessments Encounter Date Diagnosis (ICD Code) Assessment Notes Treatment Notes Treatment Clinical Notes Section Notes 02/29/2024 Bipolar disorder, current episode depressed, mild [...] and educated on complaince rx jaleel 05/19 https://www.[employer]/wzfxujcs-ste-fyltt ujz-lhsaglbgz-spfy/ Lamotrigine 100 mg - patient reported depression [...] FND 2. 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 Long-term drug therapy - 01/11/2025 Generalized anxiety disorder (ICD-10 - F41.1) Generalized [...] rx as prescribed Abilify 10 mg at bedtime- continue rx and educated on complaince rx jaleel 05/19 https://www.[employer]/bjlbsqjn-uvb-nkzth nxs-ijbarnrns-jmmb/ Patient would like to decrease Lamotrigine Decrease Lamotrigine 150 mg - daily schedule weekly appointment for depression and situational [...] FND 2. 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 ADHD Discuss and educated hx Straterra 40 mg daily in am- had depression on rx 5. Nicotine use [...] nicotine products and stop smoking hotline given 7Quit - Yes [place] Tobacco Quitline Call a Smoking Quitline The [employer]'s Smoking Quitline, (0-164-77B-QUIT) Smokefree.gov, which connects you with your State's Quitline, (5-082-BSAOWRQ) [employer] Smoking Quitline, (3-490-NKBGAAT) 6. cannabis use Cannabis Use Education NO [...] of psychosis Cannabis/marijuana information: http_s://nagi.nih.gov/p ublications/drugfacts/c annabis-marijuana http_s://www.[employer]/mddfkzgg-qia-maek bmku-mvmyaviym-nsll/ 01/11/2025 Bipolar depression (ICD-10 - F31.9) 1. Bipolar I disorder, most recent episode depression - educated to take rx as prescribed Abilify 10 mg at bedtime- continue rx and educated on complaince rx jaleel 05/19 https://www.[employer]/kpixdjbt-ryx-vfkpn uqc-ltrpanggc-hwtr/ Patient would like to decrease Lamotrigine Decrease Lamotrigine 150 mg - daily schedule weekly appointment for depression and situational [...] FND 2. 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 ADHD Discuss and educated hx Straterra 40 mg daily in am- had depression on rx 5. Nicotine use [...] stop smoking hotline given Quit - Yes [place] Tobacco Quitline Call a Smoking Quitline The [employer]'s Smoking Quitline, (3-051-11H-QUIT) Smokefree.gov, which connects you with your State's Quitline, (2-405-VZYNJTB) Veterans Smoking Quitline, (0-409-HSPHESV) 6. cannabis use Cannabis Use Education NO [...] of psychosis Cannabis/marijuana information: http_s://nagi.nih.gov/p ublications/drugfacts/c annabis-marijuana http_s://www.[employer]/hfeahrrv-fhn-tfie wvbb-vuhshbmfy-lqut/ 12/14/2024 Encounter for screening for depression (ICD-10 - Z13.31) Learning About Depression Screening material was published 1. Bipolar I disorder, most recent episode depression - educated to take rx as prescribed Abilify 10 mg at bedtime- continue rx and educated on complaince rx jaleel 05/19 https://www.[employer]/esnegazv-dav-mzrfe nlb-bhtikvrgr-svyr/ Lamotrigine 200 mg - daily schedule weekly appointment for depression and situational [...] FND 2. 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 ADHD Discuss and educated hx Straterra 40 mg daily in am- had depression on rx 5. Nicotine use [...] stop smoking hotline given -Quit - Yes [place] Tobacco Quitline Call a Smoking Quitline The [employer] Smoking Quitline, (1-949-48T-QUIT) Smokefree.gov, which connects you with your State's Quitline, (7-051-JRTDHFO) Veterans Smoking Quitline, (6-460-UQMNRQF) 6. cannabis use Cannabis Use Education NO [...] of psychosis Cannabis/marijuana information: http_s://nagi.nih.gov/p ublications/drugfacts/c annabis-marijuana http_s://www.[employer]/mklgvsqo-tow-okdc odzh-fgvognrqn-pokb/ 11/22/2024 Encounter for screening for depression (ICD-10 - Z13.31) Learning About Depression Screening material was published 1. Bipolar I disorder, most recent episode depression - educated to take rx as prescribed restart Abilify 10 mg at bedtime- having increase depression, agiation continue rx and educated on complaince rx jaleel 05/19 https://www.[employer]/zxyoqpvx-wly-uqkjz trd-qwgsxjhqi-djvf/ Lamotrigine 200 mg - schedule weekly appointment [...] FND 2. 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 cannabis use Cannabis Use Education NO [...] of psychosis Cannabis/marijuana information: http_s://nagi.nih.gov/p ublications/drugfacts/c annabis-marijuana http_s://www.[employer]/zxicyrnz-cxc-ovxj vypk-cqatsvjum-umgs/ 11/22/2024 Bipolar depression (ICD-10 - F31.9) 1. Bipolar I disorder, most recent episode depression - educated to take rx as prescribed restart Abilify 10 mg at bedtime- having increase depression, agiation continue rx and educated on complaince rx jaleel 05/19 https://www.[employer]/rqrksuhe-teq-qknzz izs-hcvrthicj-qnny/ Lamotrigine 200 mg - schedule weekly appointment [...] FND 2. 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 cannabis use Cannabis Use Education NO [...] of psychosis Cannabis/marijuana information: http_s://nagi.nih.gov/p ublications/drugfacts/c annabis-marijuana http_s://www.[employer]/oqavcilu-rvz-uxtb ifpu-gsgniypxt-guxw/ 02/01/2024 Bipolar disorder, current episode depressed, mild [...] and educated on complaince rx jaleel 05/19 https://www.[employer]/zmwzexme-dfs-ypqzj poq-aujsqpmbt-jywp/ Lamotrigine 100 mg - patient reported depression [...] FND 2. 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 Long-term drug therapy - 11/22/2024 Encounter for screening for cardiovascular disorders (ICD-10 - Z13.6) 1. Bipolar I disorder, most recent episode depression - educated to take rx as prescribed restart Abilify 10 mg at bedtime- having increase depression, agiation continue rx and educated on complaince rx jaleel 05/19 https://www.[employer] .[employer]/cjlkcnwj-qcm-ckgme zju-mrzxnhmyq-kimn/ Lamotrigine 200 mg - schedule weekly appointment [...] FND 2. 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 cannabis use Cannabis Use Education NO [...] of psychosis Cannabis/marijuana information: http_s://nagi.nih.gov/p ublications/drugfacts/c annabis-marijuana http_s://www.[employer]/yjaglcqj-pls-ivbp dbzy-owpiarzjr-arxk/ 12/14/2024 Bipolar depression (ICD-10 - F31.9) 1. Bipolar I disorder, most recent episode depression - educated to take rx as prescribed Abilify 10 mg at bedtime- continue rx and educated on complaince rx jaleel 05/19 https://www.[employer]/ulkcbtoh-zec-yzrnx cyk-nztbchozk-csgu/ Lamotrigine 200 mg - daily schedule weekly appointment for depression and situational [...] FND 2. 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 ADHD Discuss and educated hx Straterra 40 mg daily in am- had depression on rx 5. Nicotine use [...] stop smoking hotline given Quit - Yes [place] Tobacco Quitline Call a Smoking Quitline The [employer] Smoking Quitline, (9-020-14B-QUIT) Smokefree.gov, which connects you with your State's Quitline, (1-569-SGLNBKD) Veterans Smoking Quitline, (1-278-HCIBPWU) 6. cannabis use Cannabis Use Education NO CONTROL SUBSTANCE PRESCRIBED BY SBUHA with cannabis use Recommend decrease/stop cannabis use as it can negatively impact mood, motivation, anxiety, sleep, focus/concentration/mem ory (vigilance, elasticity, processing and attention); can also contribute to development of psychosis. Recommend decrease/stop cannabis use as it may be negatively impacting mood, motivation, anxiety, sleep, focus; can also contribute to development of psychosis Cannabis/marijuana information: http_s://nagi.nih.gov/p ublications/drugfacts/c annabis-marijuana http_s://www.[employer]/yhxasbiq-jkp-sncy yyyw-bzfapqmep-fmjl/ 12/14/2024 Encounter for screening for cardiovascular disorders (ICD-10 - Z13.6) 1. Bipolar I disorder, most recent episode depression - educated to take rx as prescribed Abilify 10 mg at bedtime- continue rx and educated on complaince rx jaleel 05/19 https://www.[employer]/fjxkuzby-lwx-pnpax okq-nikfyzdzf-yxlc/ Lamotrigine 200 mg - daily schedule weekly appointment for depression and situational [...] FND 2. 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 ADHD Discuss and educated hx Straterra 40 mg daily in am- had depression on rx 5. Nicotine use [...] stop smoking hotline given -Quit - Yes [place] Tobacco Quitline Call a Smoking Quitline The [employer] Smoking Quitline, (7-226-58S-QUIT) Smokefree.gov, which connects you with your State's Quitline, (7-980-VWAXIVN) Veterans Smoking Quitline, (2-839-BEBIYYV) 6. cannabis use Cannabis Use Education NO [...] of psychosis Cannabis/marijuana information: http_s://nagi.nih.gov/p ublications/drugfacts/c annabis-marijuana http_s://www.[employer]/tfeqislx-zle-iyre zwby-palrlbzup-lbqm/ 01/11/2025 Insomnia due to other mental disorder (ICD-10 - F51.05) 1. Bipolar I disorder, most recent episode depression - educated to take rx as prescribed Abilify 10 mg at bedtime- continue rx and educated on complaince rx jaleel 05/19 https://www.[employer]/tylgstcf-rwq-cwykw drq-teiowltxq-aquk/ Patient would like to decrease Lamotrigine Decrease Lamotrigine 150 mg - daily schedule weekly appointment for depression and situational [...] FND 2. 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 ADHD Discuss and educated hx Straterra 40 mg daily in am- had depression on rx 5. Nicotine use [...] stop smoking hotline given -Quit - Yes [place] Tobacco Quitline Call a Smoking Quitline The [employer] Smoking Quitline, (3-935-22I-QUIT) Smokefree.gov, which connects you with your State's Quitline, (7-698-UFIDTCN) Veterans Smoking Quitline, (8-234-LKDGCXC) 6. cannabis use Cannabis Use Education NO [...] of psychosis Cannabis/marijuana information: http_s://nagi.nih.gov/p ublications/drugfacts/c annabis-marijuana http_s://www.[employer]/fqzcmzvr-ajb-rvnq vgkd-ritsmqqxj-ljmo/ 08/23/2024 Encounter for screening for cardiovascular disorders (ICD-10 - Z13.6) 1. Bipolar I disorder, most recent episode depression - educated to take rx as prescribed Abilify 10 mg at bedtime continue rx and educated on complaince rx jaleel 05/19 https://www.[employer]/mhovyvep-rxf-uxbrx mcq-yyxarjtax-uuez/ Lamotrigine 200 mg - schedule weekly appointment [...] FND 2. 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 Long-term drug therapy - 01/11/2025 Post-traumatic stress disorder, chronic (ICD-10 - F43.12) Post-Traumatic Stress Disorder (PTSD): Care Instructions material was published, Post-Traumatic Stress Disorder (PTSD): Care Instructions material was published, Post-Traumatic Stress Disorder (PTSD): Care Instructions material was published 1. Bipolar I disorder, most recent episode depression - educated to take rx as prescribed Abilify 10 mg at bedtime- continue rx and educated on complaince rx jaleel 05/19 https://www.[employer]/vqumbezf-jxr-oulgr dik-dctvrrwix-adld/ Patient would like to decrease Lamotrigine Decrease Lamotrigine 150 mg - daily schedule weekly appointment for depression and situational [...] FND 2. 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 ADHD Discuss and educated hx Straterra 40 mg daily in am- had depression on rx 5. Nicotine use [...] nicotine products and stop smoking hotline given 442Quit - Yes [place] Tobacco Quitline Call a Smoking Quitline The [employer] Smoking Quitline, (1-553-06H-QUIT) Smokefree.gov, which connects you with your State's Quitline, (4-559-BHIRVNY) [facility] Smoking Quitline, (1-589-VLEFINF) 6. cannabis use Cannabis Use Education NO [...] of psychosis Cannabis/marijuana information: http_s://nagi.nih.gov/p ublications/drugfacts/c annabis-marijuana http_s://www.[employer]/dsfqnium-tep-hiuv jtdm-fadbeffgi-iqps/ 12/14/2024 Generalized anxiety disorder (ICD-10 - F41.1) Generalized [...] rx as prescribed Abilify 10 mg at bedtime- continue rx and educated on complaince rx jaleel 05/19 https://www.[employer]/zliqkqud-slk-jwohn ftw-picwwkudl-mvqm/ Lamotrigine 200 mg - daily schedule weekly appointment for depression and situational [...] FND 2. 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 ADHD Discuss and educated hx Straterra 40 mg daily in am- had depression on rx 5. Nicotine use [...] nicotine products and stop smoking hotline given 183Quit - Yes [place] Tobacco Quitline Call a Smoking Quitline The [employer] Smoking Quitline, (6-356-02B-QUIT) Smokefree.gov, which connects you with your State's Quitline, (2-006-XOODMJY) Veterans Smoking Quitline, (6-335-QULCAQQ) 6. cannabis use Cannabis Use Education NO CONTROL SUBSTANCE PRESCRIBED BY SUHBA with cannabis use Recommend decrease/stop cannabis use as it can negatively impact mood, motivation, anxiety, sleep, focus/concentration/mem ory (vigilance, elasticity, processing and attention); can also contribute to development of psychosis. Recommend decrease/stop cannabis use as it may be negatively impacting mood, motivation, anxiety, sleep, focus; can also contribute to development of psychosis Cannabis/marijuana information: http_s://nagi.nih.gov/p ublications/drugfacts/c annabis-marijuana http_s://www.[employer]/nnxamkra-zmh-mwfe syew-pgwanvrsu-lasg/ 11/22/2024 Generalized anxiety disorder (ICD-10 - F41.1) [...] and educated on complaince rx jaleel 05/19 https://www.[employer]/fndfewpy-yuu-qtdlg ibc-iepazrqxk-gdqq/ Lamotrigine 200 mg - schedule weekly appointment [...] FND 2. 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 cannabis use Cannabis Use Education NO [...] of psychosis Cannabis/marijuana information: http_s://nagi.nih.gov/p ublications/drugfacts/c annabis-marijuana http_s://www.[employer]/qyelornt-mwa-wrvw mail-bwqwxdztn-rbur/ 02/01/2024 Insomnia due to other mental disorder (ICD-10 - F51.05) 1. Bipolar I disorder, most recent episode depression - educated to take rx as prescribed Abilify 10 mg at bedtime started 05/22/22- continue rx and educated on complaince rx jaleel 05/19 https://www.[employer]/phfrnlww-aod-jqhhm dab-pmfppphmd-hnkp/ Lamotrigine 100 mg - patient reported depression [...] FND 2. 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 Long-term drug therapy - 12/14/2024 Insomnia due to other mental disorder (ICD-10 - F51.05) 1. Bipolar I disorder, most recent episode depression - educated to take rx as prescribed Abilify 10 mg at bedtime- continue rx and educated on complaince rx jaleel 05/19 https://[employer]/gyphvtwt-wgl-tajns dwh-gdajntczd-homr/ Lamotrigine 200 mg - daily schedule weekly appointment for depression and situational [...] FND 2. 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 ADHD Discuss and educated hx Straterra 40 mg daily in am- had depression on rx 5. Nicotine use [...] nicotine products and stop smoking hotline given 438-Quit - Yes [place] Tobacco Quitline Call a Smoking Quitline [employer] Smoking Quitline, (5-569-57F-QUIT) Smokefree.gov, which connects you with your State's Quitline, (3-905-CVFOTER) Veterans Smoking Quitline, (7-345-PLKOTBU) 6. cannabis use Cannabis Use Education NO [...] of psychosis Cannabis/marijuana information: http_s://nagi.nih.gov/p ublications/drugfacts/c annabis-marijuana http_s://www.[employer]/qeoizjng-bvw-xhmz ubce-fzmypjazy-eujj/ 11/22/2024 Insomnia due to other mental disorder (ICD-10 - F51.05) 1. Bipolar I disorder, most recent episode depression - educated to take rx as prescribed restart Abilify 10 mg at bedtime- having increase depression, agiation continue rx and educated on complaince rx jaleel 05/19 https://www.[employer]/lafopltm-wjc-zjnjv xqd-qhfgmntvs-uilk/ Lamotrigine 200 mg - schedule weekly appointment [...] FND 2. 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 cannabis use Cannabis Use Education NO [...] of psychosis Cannabis/marijuana information: http_s://nagi.nih.gov/p ublications/drugfacts/c annabis-marijuana http_s://www.[employer]/uxbicakh-xhu-vwwm tjpy-loybdknwz-aogu/ 01/11/2025 ADHD (attention deficit hyperactivity disorder), combined type [...] rx as prescribed Abilify 10 mg at bedtime- continue rx and educated on complaince rx jaleel 05/19 https://www.[employer]/skcvmgoa-nhk-lfdfa txb-esiaeuzto-zaxv/ Patient would like to decrease Lamotrigine Decrease Lamotrigine 150 mg - daily schedule weekly appointment for depression and situational [...] FND 2. 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 ADHD Discuss and educated hx Straterra 40 mg daily in am- had depression on rx 5. Nicotine use [...] stop smoking hotline given Quit - Yes [place] Tobacco Quitline Call a Smoking Quitline [employer] Smoking Quitline, (3-388-47H-QUIT) Smokefree.gov, which connects you with your State's Quitline, (9-015-SWLJADP) [facility] Smoking Quitline, (5-128-VMKBIEX) 6. cannabis use Cannabis Use Education NO [...] of psychosis Cannabis/marijuana information: http_s://nagi.nih.gov/p ublications/drugfacts/c annabis-marijuana http_s://www.[employer]/sbazobyv-odn-ndcd cxmg-lonulzkae-jtkh/ 08/23/2024 Generalized anxiety disorder (ICD-10 - F41.1) [...] and educated on complaince rx jaleel 05/19 https://www.[employer]/zdnferop-jlm-vkxuo syi-ghtfgjfgk-hbyx/ Lamotrigine 200 mg - schedule weekly appointment [...] FND 2. 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 Bipolar I disorder, most recent episode depression - educated to take rx as prescribed Abilify 10 mg at bedtime started 05/22/22- continue rx and educated on complaince rx jaleel 05/19 https://www.[employer]/pjphvflc-ibg-hitmk gao-oouvkxmmh-jweg/ Lamotrigine 100 mg - patient reported depression [...] FND 2. 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 Bipolar I disorder, most recent episode depression - educated to take rx as prescribed Abilify 10 mg at bedtime started 05/22/22- continue rx and educated on complaince rx jaleel 05/19 https://www.[employer]/obeztjpg-peo-qstnc tax-ssjpeevcp-febs/ Increase Lamotrigine 150 mg - patient reported [...] FND 2. 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 Bipolar I disorder, most recent episode depression - educated to take rx as prescribed Abilify 10 mg at bedtime continue rx and educated on complaince rx jaleel 05/19 https://www.[employer]/zysrjxpo-ybd-iwtzg qlr-pumsugrhx-bryx/ Increase Lamotrigine 200 mg - patient reported [...] FND 2. 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 Long-term drug therapy - 06/02/2024 Other senior living (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 (ICD-10 - Z79.899) Medication Refill: Care Instructions material was published, Medication Refill: Care Instructions material was published 1. Bipolar I disorder, most recent episode depression - educated to take rx as prescribed Abilify 10 mg at bedtime continue rx and educated on complaince rx jaleel 05/19 https://www.[employer]/pccecdkm-fme-qrddd kby-wheaoewea-rghc/ Lamotrigine 200 mg - patient reported depression [...] FND 2. 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 Bipolar I disorder, most recent episode depression - educated to take rx as prescribed Abilify 10 mg at bedtime continue rx and educated on complaince rx jaleel 05/19 https://www.[employer]/gketgxni-qcj-ueecg fsm-jjgzchuwl-uxts/ Lamotrigine 200 mg - patient reported depression [...] FND 2. 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 Bipolar I disorder, most recent episode depression - educated to take rx as prescribed Abilify 10 mg at bedtime continue rx and educated on complaince rx jaleel 05/19 no refill needed today https://www.[employer]/eejwxdkl-dkc-bajjk fpy-iiphghhfr-iguc/ Lamotrigine 200 mg - patient reported depression [...] FND 2. 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 Long-term drug therapy - 12/14/2024 Post-traumatic stress disorder, chronic (ICD-10 - F43.12) Post-Traumatic Stress Disorder (PTSD): Care Instructions material was published, Post-Traumatic Stress Disorder (PTSD): Care Instructions material was published, Post-Traumatic Stress Disorder (PTSD): Care Instructions material was published 1. Bipolar I disorder, most recent episode depression - educated to take rx as prescribed Abilify 10 mg at bedtime- continue rx and educated on complaince rx jaleel 05/19 https://www.[employer]/rofurkxr-lgy-wrtkc phj-dsxyhoflx-qglb/ Lamotrigine 200 mg - daily schedule weekly appointment for depression and situational [...] FND 2. 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 ADHD Discuss and educated hx Straterra 40 mg daily in am- had depression on rx 5. Nicotine use [...] nicotine products and stop smoking hotline given 003-Quit - Yes [place] Tobacco Quitline Call a Smoking Quitline The [employer]'s Smoking Quitline, (3-179-83O-QUIT) Smokefree.gov, which connects you with your State's Quitline, (4-793-XYMTWDO) Veterans Smoking Quitline, (3-132-FPKTPJB) 6. cannabis use Cannabis Use Education NO [...] of psychosis Cannabis/marijuana information: http_s://nagi.nih.gov/p ublications/drugfacts/c annabis-marijuana http_s://www.[employer]/reeqwqjb-udj-ljsb efyw-yugtgexrv-opbw/ 11/22/2024 Post-traumatic stress disorder, chronic (ICD-10 - [...] and educated on complaince rx jaleel 05/19 https://www.[employer]/rjhjimdb-mrt-emsaw gxg-keravgczj-lrlb/ Lamotrigine 200 mg - schedule weekly appointment [...] FND 2. 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 cannabis use Cannabis Use Education NO [...] of psychosis Cannabis/marijuana information: http_s://nagi.nih.gov/p ublications/drugfacts/c annabis-marijuana http_s://www.[employer]/zmnoorum-joz-uzuq qxmg-iokxpiocg-zltp/ 02/01/2024 Other senior living (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 (ICD-10 - Z79.899) Medication Refill: Care Instructions material was published, Medication Refill: Care Instructions material was published 1. Bipolar I disorder, most recent episode depression - educated to take rx as prescribed Abilify 10 mg at bedtime started 05/22/22- continue rx and educated on complaince rx jaleel 05/19 https://www.[employer]/lkcullfv-hsg-vhxua hun-tkldgvgwx-prul/ Lamotrigine 100 mg - patient reported depression [...] FND 2. 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 Long-term drug therapy - 11/22/2024 Other long term care social worker (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 (ICD-10 - Z79.899) Medication Refill: Care Instructions material was published, Medication Refill: Care Instructions material was published, Medication Refill: Care Instructions material was published 1. Bipolar I disorder, most recent episode depression - educated to take rx as prescribed restart Abilify 10 mg at bedtime- having increase depression, agiation continue rx and educated on complaince rx jaleel 05/19 https://www.[employer]/wvngojna-hqe-qecys khc-jkjtdeyep-zdns/ Lamotrigine 200 mg - schedule weekly appointment [...] FND 2. 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 cannabis use Cannabis Use Education NO [...] of psychosis Cannabis/marijuana information: http_s://nagi.nih.gov/p ublications/drugfacts/c annabis-marijuana http_s://www.[employer]/ttrjbego-jeq-xixc ywec-bemglybas-khgh/ 12/14/2024 Other long term care social worker (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 (ICD-10 - Z79.899) Medication Refill: Care Instructions material was published, Medication Refill: Care Instructions material was published, Medication Refill: Care Instructions material was published 1. Bipolar I disorder, most recent episode depression - educated to take rx as prescribed Abilify 10 mg at bedtime- continue rx and educated on complaince rx jaleel 05/19 https://www.[employer]/kqvhgogc-spp-tysnt cfg-eaqwsebop-ydsj/ Lamotrigine 200 mg - daily schedule weekly appointment for depression and situational [...] FND 2. 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 ADHD Discuss and educated hx Straterra 40 mg daily in am- had depression on rx 5. Nicotine use [...] stop smoking hotline given -Quit - Yes [place] Tobacco Quitline Call a Smoking Quitline The [employer] Smoking Quitline, (0-366-40W-QUIT) Smokefree.gov, which connects you with your State's Quitline, (6-552-LOUEPXI) Veterans Smoking Quitline, (1-207-DKSRVSP) 6. cannabis use Cannabis Use Education NO [...] of psychosis Cannabis/marijuana information: http_s://nagi.nih.gov/p ublications/drugfacts/c annabis-marijuana http_s://www.[employer]/ddkvomee-nrl-wkjy espl-vlpgallfl-lvtp/ 08/08/2024 Other long term care social worker (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 (ICD-10 - Z79.899) Medication Refill: Care Instructions material was published, Medication Refill: Care Instructions material was published, Medication Refill: Care Instructions material was published 1. Bipolar I disorder, most recent episode depression - educated to take rx as prescribed Abilify 10 mg at bedtime continue rx and educated on complaince rx jaleel 05/19 https://www.[employer]/fbbxcnik-tyk-iqvpn ijr-uksbsxkvf-ejbv/ Lamotrigine 200 mg - patient reported depression [...] FND 2. 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 Long-term drug therapy - 08/23/2024 Other senior living (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 (ICD-10 - Z79.899) Medication Refill: Care Instructions material was published, Medication Refill: Care Instructions material was published, Medication Refill: Care Instructions material was published 1. Bipolar I disorder, most recent episode depression - educated to take rx as prescribed Abilify 10 mg at bedtime continue rx and educated on complaince rx jaleel 05/19 https://www.[employer]/gprmumzj-oxn-xxsko kce-jpjkptamb-jsgi/ Lamotrigine 200 mg - schedule weekly appointment [...] FND 2. 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 Long-term drug therapy - 12/14/2024 ADHD (attention deficit hyperactivity disorder), combined type [...] rx as prescribed Abilify 10 mg at bedtime- continue rx and educated on complaince rx jaleel 05/19 https://www.[employer]/nfhgqgau-fvz-yvaad umg-kikoaprjq-fwgt/ Lamotrigine 200 mg - daily schedule weekly appointment for depression and situational [...] FND 2. 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 ADHD Discuss and educated hx Straterra 40 mg daily in am- had depression on rx 5. Nicotine use [...] stop smoking hotline given Quit - Yes [place] Tobacco Quitline Call a Smoking Quitline The [employer] Smoking Quitline, (4-245-99H-QUIT) Smokefree.gov, which connects you with your State's Quitline, (4-746-HKVNRKX) Veterans Smoking Quitline, (7-193-VTJPRPQ) 6. cannabis use Cannabis Use Education NO [...] of psychosis Cannabis/marijuana information: http_s://nagi.nih.gov/p ublications/drugfacts/c annabis-marijuana http_s://www.[employer]/rawzhnhj-dvn-lvbj qhjv-lkzjrovah-fwmu/ 11/22/2024 ADHD (attention deficit hyperactivity disorder), combined [...] and educated on complaince rx jaleel 05/19 https://www.[employer]/raayilea-yop-rqcjo urx-vxrtchlis-ecat/ Lamotrigine 200 mg - schedule weekly appointment [...] FND 2. 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 cannabis use Cannabis Use Education NO [...] of psychosis Cannabis/marijuana information: http_s://nagi.nih.gov/p ublications/drugfacts/c annabis-marijuana http_s://www.[employer]/lcnjxyuj-ptk-eomw ditz-rldtvfzys-ykyg/ 11/22/2024 Nicotine use (ICD-10 - Z72.0) 1. Bipolar I disorder, most recent episode depression - educated to take rx as prescribed restart Abilify 10 mg at bedtime- having increase depression, agiation continue rx and educated on complaince rx jaleel 05/19 https://www.[employer]/qhsaembv-vyu-tfjaw ywi-kuqahjphb-tyal/ Lamotrigine 200 mg - schedule weekly appointment [...] FND 2. 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 cannabis use Cannabis Use Education NO [...] of psychosis Cannabis/marijuana information: http_s://nagi.nih.gov/p ublications/drugfacts/c annabis-marijuana http_s://www.[employer]/vifjpvkp-eze-wzqx rvff-yfhhjidtk-nanq/ 12/14/2024 Nicotine use (ICD-10 - Z72.0) 1. Bipolar I disorder, most recent episode depression - educated to take rx as prescribed Abilify 10 mg at bedtime- continue rx and educated on complaince rx jaleel 05/19 https://www.[employer]/ltdzdfmv-leq-vjjhc max-hentjmnjh-cewq/ Lamotrigine 200 mg - daily schedule weekly appointment for depression and situational [...] FND 2. 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 ADHD Discuss and educated hx Straterra 40 mg daily in am- had depression on rx 5. Nicotine use [...] stop smoking hotline given -Quit - Yes [place] Tobacco Quitline Call a Smoking Quitline The [employer] Smoking Quitline, (6-573-14J-QUIT) Smokefree.gov, which connects you with your State's Quitline, (0-691-AFFYQKW) Veterans Smoking Quitline, (7-498-PQYIMMO) 6. cannabis use Cannabis Use Education NO [...] of psychosis Cannabis/marijuana information: http_s://nagi.nih.gov/p ublications/drugfacts/c annabis-marijuana http_s://www.[employer]/xpgfuest-gdj-suer vrnk-dyyzjggsl-bmau/ 08/23/2024 ADHD (attention deficit hyperactivity disorder), combined [...] and educated on complaince rx jaleel 05/19 https://www.[employer]/xitqdykj-lnu-mygki ziu-mwumiwvhc-zanx/ Lamotrigine 200 mg - schedule weekly appointment [...] FND 2. 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 Long-term drug therapy - 08/08/2024 Other Aripiprazole material was published, Lamotrigine material was published, Hydroxyzine material was published, Atomoxetine material was published 1. Bipolar I disorder, most recent episode depression - educated to take rx as prescribed Abilify 10 mg at bedtime continue rx and educated on complaince rx jaleel 05/19 https://www.[employer] .[employer]/bcflrulf-wwq-tjuzy qwg-kbjjtriyk-wrrf/ Lamotrigine 200 mg - patient reported depression [...] FND 2. 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 cannabis use Cannabis Use Education NO [...] of psychosis Cannabis/marijuana information: http_s://nagi.nih.gov/p ublications/drugfacts/c annabis-marijuana http_s://www.[employer]/zwxvoqav-uhx-pgyu yugw-tozsbmidd-pvvt/ 12/14/2024 Other Bipolar Disorder: Care Instructions material was [...] rx as prescribed Abilify 10 mg at bedtime- continue rx and educated on complaince rx jaleel 05/19 https://www.[employer]/iqrosewh-mkv-yuihs wgm-slpepbxuv-mutm/ Lamotrigine 200 mg - daily schedule weekly appointment for depression and situational [...] FND 2. 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 ADHD Discuss and educated hx Straterra 40 mg daily in am- had depression on rx 5. Nicotine use [...] stop smoking hotline given Quit - Yes [place] Tobacco Quitline Call a Smoking Quitline The [employer] Smoking Quitline, (5-886-38I-QUIT) Smokefree.gov, which connects you with your State's Quitline, (2-862-EWPQAFL) [facility] Smoking Quitline, (8-973-EHWPPFM) 6. cannabis use Cannabis Use Education NO [...] of psychosis Cannabis/marijuana information: http_s://nagi.nih.gov/p ublications/drugfacts/c annabis-marijuana http_s://www.[employer]/fbvbyvpu-zyi-pwym zrhf-uwyejzquc-ahcs/ Plan Of Treatment No Information Insurance Providers Payer Name Payer Address Payer Phone Subscriber Number Group Number Insured Name Patient Relationship to Insured Coverage Start Date Coverage End Date [employer] [address] [place] [id number] TRAVIS MACHADO Child - Insured has Financial [...]
--- OUTSIDE RECORDS SUMMARY | 2025-01-18 13:05 | XMS_ITS | Clinical Summary ---
Author Organization [facility] Address [address] [place] [id number] Phone Care Team Providers Care Day Spa Manager Name Role Phone Jennifer Reyes Primary Care Provider [phone]- [phone] Allergies Active Allergy Reactions Criticality Noted Date [...] Assessment & Plan: Continue with care per chief medical director Otalgia of right ear 06/12/2021 Overview (12/11/2021): [...] Last Done Comments COVID-19 Vaccine ( season) 2024, 09/17/2020 Influenza Vaccine (#1) 2024 05/25/2020, 2018 Insurance [employer] [place] Care Teams Day Spa Manager Relationship Specialty Start Date End Date Jennifer Reyes PA PCP - General Family Medicine 01/02/22
--- OUTSIDE RECORDS SUMMARY | 2025-01-18 13:05 | XMS_ITS | Clinical Summary ---
Author Organization [facility] Address [address] [place] [address] Care Team Providers Care Fringe Knotter Name Role Phone Jennifer Reyes Primary Care Provider [phone]- [phone] Allergies Active Allergy Reactions Criticality Noted Date Comments Adhesive Rash Medium 01/27/2024 York Oil Anaphylaxis High 02/09/2022 Cefdinir Hives,Diarrhea Medium [...] 06/12/2021 Assessment & Plan (06/12/2021 10:35 AM WELFARE DIRECTOR): Advised no drops in ear Advised wearing cotton in ear when showering for the next week Advised adding 500mg tylenol q6h prn pain to current ibuprofen regimen x 3d Advised f/u if not improving or if worsening over the next week Otalgia, right 06/12/2021 Assessment & Plan (06/12/2021 10:35 AM WELFARE DIRECTOR): Advised no drops in ear Advised wearing cotton in ear when showering for the next week Advised adding 500mg tylenol q6h prn pain to current ibuprofen regimen x 3d Advised f/u if not improving or if worsening over the next week Dermatitis 06/12/2021 Assessment & Plan (06/12/2021 10:36 AM WELFARE DIRECTOR): Will add steroid cream bid x 7 days. She was advised f/u in the next week if not improving, sooner if worsening. Tobacco use 06/12/2021 Assessment & Plan (06/12/2021 10:35 AM WELFARE DIRECTOR): Encouraged continued attempts at smoking cessation, discussed that the wellbutrin may benefit these attempts Moderate episode of recurrent major depressive d isorder 06/12/2021 Assessment & Plan (06/12/2021 10:36 AM WELFARE DIRECTOR): Continue with care per psychiatry Endometriosis 06/12/2021 Assessment & Plan (06/12/2021 10:36 AM WELFARE DIRECTOR): Continue with care per real estate inspector Psychogenic nonepileptic seizure 08/09/2020 Migraine without aura and wi thout status migrainosus, not intractable 04/23/2020 Episodes of decreased attentiveness 04/23/2020 Assessment & Plan (06/12/2021 10:36 AM WELFARE DIRECTOR): Continue with care per psychiatry Mild intermittent asthma 05/24/2018 Assessment & Plan (05/24/2018 4:45 AM WELFARE DIRECTOR): Present on admission, currently asymptomatic. -Albuterol PRN Multiple food allergies 05/24/2018 Assessment & Plan (05/24/2018 4:47 AM WELFARE DIRECTOR): Present on admission, currently asymptomatic. -Epinephrine 0.3mg IM PRN anaphylaxis Cervical pain (neck) 12/02/2016 Assessment & Plan (05/24/2018 4:47 AM WELFARE DIRECTOR): Present on admission. Given description as unilateral [...] Type Department Care Team Description 11/25/2024 Telephone [facility] Medicine Obstetrics and Gynecology [address] [facility] [place] [facility] [address] [place] [address] Sara Lassiter Scheduling Appointments 11/25/2024 Telephone [facility] Medicine Minimally Invasive Surgery [address] [facility] [address] [place] [address] Sara Alcala MD Follow-up from Last 3 Months Immunizations Immunization Administration [...] on file Legal Sex Female 11:46 PM WELFARE DIRECTOR Gender Identity Not on file Sexual [...] Oxygen Saturation 99% 06/02/2022 10: 15 AM WELFARE DIRECTOR Inhaled Oxygen Concentration - - Weight 57.5 [...] 06/12/2022 06/12/2021 Covid-19 Vaccine (3 - season) 2024, 09/17/2020 Influenza Vaccine (#1) 2024 05/25/2020, 01/29/ 2019 Insurance CIGNA OPEN ACCESS CIGNA OPEN ACCESS [employer]NA [facility]PA [facility] OPEN ACCESS IDPA [facility] Advance Directives For more information, please contact: [phone] Documents on File Type Date Recorded Patient Batch Roller Operator Expl anation ADVANCE DIRECTIVE 05/24/2018 12:50 AM * Full Code (Latest Code Status on File) Date Activated Date Inactivated Comments 06/27/2020 8:51 AM 06/30/2020 8:59 PM * Full Code Date Activated Date Inactivated Comments 05/24/2018 2:35 AM 05/25/2018 6:00 PM Care Teams Fringe Knotter Relationship Specialty Start Date End Date Jennifer Reyes PA PCP - General Spray Blender 06/12/21
--- OUTSIDE RECORDS SUMMARY | 2025-01-18 13:06 | XMS_ITS | Clinical Summary ---
Author Organization [facility] Address [address] [place] [address] Care Team Providers Care Machined Parts Quality Inspector Name Role Phone Unavailable Primary Care Provider Unavailabl e Social History Tobacco Use Types Packs/Day Years Used Date Smoking Tobacco: Never Assessed Comments Unknown Sex and Gender Information Value Date Recorded Sex Assigned at Not on file Legal Sex Female 1:46 PM LIQUOR MERCHANT Gender Identity Not on file Sexual Orientation [...]
--- OUTSIDE RECORDS SUMMARY | 2025-01-18 13:06 | XMS_ITS | Clinical Summary ---
Author Organization [facility] Address [address] [place] [address] Phone Care Team Providers Care Java Programming Professor Name Role Phone Unavailable Primary Care Provider [...] Encounters Date Type Department Care Team Description 01/10/2025 External Device Data ST[facility] ABSTRACTION Provider, Abstract [...] 2020 PAP SMEAR 2020 INFLUENZA VACCINE (#1) 2024 05/25/2020, 2018 COVID-19 Vaccine ( season) 2024, 09/17/2020 Medical Devices Implanted Type Area Complex Care Nurse Practitioner Device Identifier Shelf Expiration Date Model / Serial / Lot Barrier Interceed Adh 3x4in 4350 - [id number] Implanted:Qt y: 1 on 02/04/2024 by Rahul Kilgore MD at [facility] Adhesion Barrier N/A: Pelvis [employer]- [employer] [id number] 04/26/2028 [id number] / / [id number] Barrier Interceed Adh 3x4in 4350 - [id number] Implanted:Qt y: 1 on 02/04/2024 by Rahul Kilgore MD at [facility] Adhesion Barrier N/A: Pelvis [employer]- [employer] [id number] 04/26/2028 [id number] / / [id number] Insurance [facility] OPEN ACCESS HMO RX [employer] Express Advance Directives For more information, please contact: [phone] * Full Code (Latest Code Status on File) Date Activated Date Inactivated Comments 02/04/2024 11:42 AM 02/04/2024 4:01 PM * Full Code Date Activated Date Inactivated Comments 02/04/2024 9:22 AM 02/04/2024 11:42 AM
--- OUTSIDE RECORDS SUMMARY | 2025-01-18 13:06 | XMS_ITS | Clinical Summary ---
Author Organization [facility] Address [address] [place] [address] Care Team Providers Care Social Group Worker Name Role Phone Brent Rubio MD Primary Care Provider Unav ailable Allergies Active Allergy Reactions Criticality Noted Date Comments [place] Oil Anaphylaxis High 02/09/2022 Cefdinir Diarrhea,Hives,Other (see [...] Sex Assigned at Female 06/20/2024 9:14 PM MIRROR SPECIALIST Legal Sex Female 8:21 PM CDT Gender Identity Not on file Sexual Orientation Not on file Last Filed Vital Signs Vital Sign Reading Time Taken Comments Blood Pressure 106/58 06/21/2024 1:00 AM MIRROR SPECIALIST Pulse 110 06/20/2024 9:05 PM MIRROR SPECIALIST Temperature 37.3 C (99.2 F) 06/20/2024 9:05 PM MIRROR SPECIALIST Respiratory Rate 18 06/20/2024 9:05 PM MIRROR SPECIALIST Oxygen Saturation 94% 06/21/2024 1:00 AM MIRROR SPECIALIST Inhaled Oxygen Concentration - - Weight 58.7 kg (129 lb 6.6 oz) 06/20/2024 9:05 P M MIRROR SPECIALIST Height 162.6 cm (5' 4) 06/20/2024 9:05 PM MIRROR SPECIALIST Body Mass Index 22.21 06/20/2024 9:05 PM MIRROR SPECIALIST Plan of Treatment Health Maintenance Due Date [...] 3-dose series) 2018 COVID-19 Vaccine (3 - 2024-2 6 season) 2024 10/08/2020, 09/17/2020 Meningococcal B Vaccine Aged Out [...] to complete this topic Insurance Care Teams Social Group Worker Relationship Specialty Start Date End Date Brent Rubio MD PCP - General 01/04/16
== END 2025-01-18 13:00 | disposition home or self-care (01) ==
LOC: ANHSURGERY 13:02
PROVIDERS: PCP Nurse Practitioner Family; Visit Provider Obstetrics & Gynecology
DX: R10.2 Pelvic and perineal pain (principal)
CPT/HCPCS: 36415; 86850; 86900; 86901

== ENCOUNTER 2025-01-27 01:27 | Day surgery (SDC) | payer OTHER, SELFPAY ==
[2025-01-18 09:56] VITALS: BMI 20.9
--- NOTE | 2025-01-18 09:57 | PC.NURSE ---
[facility] has started construction of its new state of the art ER which will open Spring 2026. With this, we anticipate parking may be a challenge for some our surgical patients and families. Parking spaces are limited but are available for all Surgical, obstetrics, and ER patients sharing this lot. If you arrive and find you are having a hard time finding a parking space, please note that we understand the challenges, please drive around the hospital and park near Hospital Entrance 1. When you enter this entrance, you can ask a volunteer to direct or take you back to the surgical waiting area to check in. We appreciate everyone?s understanding of these expected challenges while we build for your future. Report to the Outpatient Waiting Room, entrance under the green pavilion located off [address], at time _0800_ on date _[phone]_. Planned Procedure Time: _1000_.? Time changes happen often and if your time is changed the preop area will call you the afternoon before. - You and your visitor will be asked to self-screen and do not enter if you have any COVID symptoms. Please call surgeon if you need to reschedule. - A mask is optional within the hospital at this time. Patients may have clear liquids (water, carbonated beverages, clear teas, apple juice) until 3 hours prior to surgery with a maximum of 20 ounces. - No food from midnight until time of surgery and no smoking, or chewing tobacco (or any form of nicotine). No chewing gum, candy or mints. Take only the following medications with a SIP of water on the morning of surgery: __Alprazolam if needed.____ DO NOT STOP ANY OF YOUR OTHER PRESCRIPTION MEDICATIONS PRIOR TO SURGERY EXCEPT THE FOLLOWING Hold all vitamins and supplements for 3 days per anesthesiologist. Medications to discontinue per physician Date to take last dose Please no make-up, nail burkinan, hairspray, perfume, deodorant, or body powder the day of surgery.? No jewelry (including any body piercings) or valuables the day of surgery, leave them at home.? Please take a shower or bath the night before, or the morning of, surgery with an antibacterial soap.? Wear comfortable, loose fitting clothing.? - Jewelry must be removed prior to entering the operating room.? Rings and piercings that are not removed may be cut off. - The hospital will not accept responsibility for valuables.? - Please leave all valuables, including medications, at home the day of surgery. If you are going home after surgery, a licensed parts delivery driver must drive you home.? - NO public transportation without another adult if you receive anesthesia. - We recommend that an adult stay with you for 24 hours following discharge. - We also recommend that you do not drive, make important decision, drink alcoholic beverages, or take any drugs that were not prescribed by your health care provider for at least 24 hours after your discharge time. Follow any additional instructions given to you from your surgeon. Telephone instructions given to __Madeline___and asked if any additional questions and then verbalized understanding. Patient advised to call surgeon office or pre surgery nurse liaison [phone] if any additional questions.
--- NOTE | 2025-01-23 14:07 | PM.IMHP ---
H&P: HPI History of Present Illness Date/Time: 01/23/25 14:07 Chief Complaint: Pelvic pain and dyspareunia Narrative: 24-year-old female with history of endometriosis admitted for diagnostic laparoscopy. Risks and benefits of the procedure reviewed including exclusive of , aspiration pneumonia, bleeding, transfusion, perforation injury to bowel, bladder, ureters, or other internal organs with need for open laparotomy. She received the ACOG handout entitled laparoscopy. She had all questions answered. She asked to proceed. Review of Systems Review of Systems: All systems reviewed & are unremarkable except as noted in HPI. All systems reviewed & are unremarkable except as noted in HPI and below PMFSH Past Medical History Medical History History of suicide attempt Depression Endometriosis Asthma Pelvic pain Anxiety Surgical History Surgical History H/O laparoscopy Family History Family History Mother No pertinent past medical history Social History Social History Smoking status: Current some day smoker Tobacco type: e-cigarettes/vaping Alcohol intake: current Alcohol use details: 1-2/MONTH Substance use: current Substance use type: marijuana Other substance usage details: Daily Living arrangements: with family Additional living arrangements comments: MOM Gender identity (if verbalized by the patient): Female Spiritual care concerns: No Meds Home Medications and Allergies Home Medications ?Medication ?Instructions ?Recorded ?Confirmed ?Type aripiprazole 10 mg tablet 10 mg PO HS 06/16/24 01/18/25 History prochlorperazine maleate 10 mg 10 mg PO Q8H PRN nausea and 11/16/24 01/18/25 Rx tablet (Compazine) vomiting #20 tabs alprazolam 0.5 mg tablet 0.5 mg PO QID PRN anxiety 01/18/25 01/18/25 History duloxetine 20 mg capsule,delayed 20 mg PO HS 01/18/25 01/18/25 History release lamotrigine 150 mg tablet 150 mg PO HS 01/18/25 01/18/25 History (Lamictal) Allergies Allergy/AdvReac Type Severity Reaction Status Date / Time tree nut Allergy Severe Anaphylaxis Verified 01/18/25 09:45 clindamycin Allergy Mild Rash Verified 01/18/25 09:45 doxycycline Allergy Mild Rash Verified 01/18/25 09:45 morphine Allergy Mild Agitated Verified 01/18/25 09:45 cefdinir (From Omnicef) Allergy Hives Verified 01/18/25 09:45 elagolix (From Orilissa) AdvReac Migraine Verified 01/18/25 09:45 escitalopram (From Lexapro) AdvReac Itching Verified 01/18/25 09:45 Exam Narrative: GENERAL: Mildly ill appearing, well-nourished, non-toxic, in no acute distress. HEAD: Normocephalic, atraumatic. RESPIRATORY: Airway patent, respirations nonlabored. Clear to auscultation bilaterally, no rales, rhonchi, wheezing. CARDIOVASCULAR: Regular rate and rhythm without murmurs, rubs, or gallops. ABDOMINAL: Soft, mild diffuse lower abdominal tenderness, nondistended. Normoactive BS. MUSCULOSKELETAL: Moves all extremities. No gross deformities. SKIN: Warm, dry, normal color. NEURO: A&O X3. Speech clear. No ataxic movements. PSYCHIATRIC: Appropriate mood and affect. Normal interaction. Assessment and Plan Assessment and plan (1) Pelvic pain: Code(s): R10.2 - Pelvic and perineal pain Status: Acute Plan Proceed with laparoscopy
[2025-01-27] VITALS (8 sets, daily range): BP systolic 90–110; BP diastolic 49–74; PULSE 47–95; RESP 12–18; TEMP 36.1–36.4; O2SAT 98–100
--- NOTE | 2025-01-27 06:36 | WPDHPUPDATE1 ---
History and Physical Update Update Date/Time: 01/27/25 06:36 History and Physical has been reviewed, including an updated exam of the patient. There are NO changes in the patient's condition. Risks, benefits, and alternatives have been discussed and questions answered. Patient agrees to proceed with procedure.
[2025-01-27 08:44] LABS: BEDSIDEPREGUCG Negative (Negative)
--- NOTE | 2025-01-27 08:59 | WPDANESEPPF ---
Anes - Initial Pre Proc Eval Procedure: Operation Date: 01/27/25 10:00 Proposed Procedures p Diagnostic Laparoscopy - Philip Restrepo MD Date/Time: 01/27/25 08:59 Surgeon: Philip Restrepo MD Pre Op Diagnosis: pelvic pain, hx of endometriosis Patient Data Age: 24 Gender: F Height: 1.63 m Weight: 56.6 kg Last Vital Signs Temp 36.4 C 01/27/25 08:25 Pulse 95 01/27/25 08:25 Resp 14 01/27/25 08:25 BP 110/70 01/27/25 08:25 Pulse Ox 100 01/27/25 08:25 O2 Del Method Room Air 01/27/25 08:25 Allergies Allergy/AdvReac Type Severity Reaction Status Date / Time tree nut Allergy Severe Anaphylaxis Verified 01/27/25 08:36 clindamycin Allergy Mild Rash Verified 01/27/25 08:36 doxycycline Allergy Mild Rash Verified 01/27/25 08:36 morphine Allergy Mild Agitated Verified 01/27/25 08:36 cefdinir (From Omnicef) Allergy Hives Verified 01/27/25 08:36 bupropion (From Wellbutrin) AdvReac Intermediate Other Verified 01/27/25 08:38 elagolix (From Orilissa) AdvReac Migraine Verified 01/27/25 08:36 escitalopram (From Lexapro) AdvReac Itching Verified 01/27/25 08:36 Home Medications ?Medication ?Instructions ?Recorded ?Confirmed ?Type aripiprazole 10 mg tablet 10 mg PO HS 06/16/24 01/18/25 History prochlorperazine maleate 10 mg 10 mg PO Q8H PRN nausea and 11/16/24 01/18/25 Rx tablet (Compazine) vomiting #20 tabs alprazolam 0.5 mg tablet 0.5 mg PO QID PRN anxiety 01/18/25 01/18/25 History duloxetine 20 mg capsule,delayed 20 mg PO HS 01/18/25 01/27/25 History release lamotrigine 150 mg tablet 150 mg PO HS 01/18/25 01/18/25 History (Lamictal) alprazolam 0.5 mg tablet 0.5 mg PO BID #60 tabs 01/27/25 Rx fluoxetine 20 mg capsule (Prozac) 20 mg PO DAILY 01/27/25 01/27/25 History hydrocodone 5 mg-acetaminophen 325 1 tablet PO Q4H PRN pain #20 tabs 01/27/25 Rx mg tablet Laboratory Tests 01/27/25 08:42 POC Urine HCG, Qual Negative (Negative) Patient hx anesthesia problems: none Family hx anesthesia problems: none Results Review: All pre-operative results and documents have been reviewed as part of the pre-operative evaluation. [facility] Past Medical History Medical History History of suicide attempt Depression Endometriosis Asthma Pelvic pain Anxiety Surgical History Surgical History H/O laparoscopy Family History Family History Mother No pertinent past medical history Social History Social History Smoking status: Current some day smoker Tobacco type: e-cigarettes/vaping Alcohol intake: current Alcohol use details: 1-2/MONTH Substance use: current Substance use type: marijuana Other substance usage details: Daily Living arrangements: with family Additional living arrangements comments: MOM Gender identity (if verbalized by the patient): Female Spiritual care concerns: No Anes - Eval Final PreProcedure Day of Procedure 01/27/25 08:59 Patient weight: normal Heart: regular rate and rhythm Lungs: normal air movement Airway: Mallampati scale class 1 Neurological: alert and oriented Last oral intake: >/= 8 hours ASA classification: II Emergent: no Anesthetic plan: proceed Anesthesia type and monitoring: general ETT and standard monitoring Results Review: All pre-operative results and documents have been reviewed as part of the pre-operative evaluation. Informed Consent: The patient's anesthetic plan and its attendant risks and benefits were discussed with the patient/family/POA. Questions were solicited and answers provided to the satisfaction of the patient/family/POA.
[2025-01-27] MEDS: LACTATED RINGERS 1,000 ML 30 ML IV CONT (09:20)
[2025-01-27] MEDS: SCOPOLAMINE 1 MG PATCH 1 PATCH TRANSDERM (09:25)
[2025-01-27] MEDS: KETOROLAC 15 MG/ML VIAL (*BKC) IV PUSH (09:25)
--- NOTE | 2025-01-27 10:06 | W.PM.PROC2 ---
Procedure Note - Detailed Date of Procedure 01/27/25 Pre-op Diagnosis pelvic pain, hx of endometriosis Post-op Diagnosis Same Procedure Performed Laparoscopy with destruction of endometriosis Surgeon Philip Restrepo MD Anesthesia General Indications 24-year-old female with a history of endometriosis with severe pelvic pain refractory to medical therapy Findings ovaries tubes. Uterus was normal. There was [id number] of serosanguineous fluid in the cul-de-sac. Multiple areas of endometriosis and powder burn form were seen and these were cauterized at 30 per sec monopolar Description of Procedure The patient was prepped draped in the normal sterile fashion placed in the dorsal lithotomy position. Under excellent general trach anesthesia weighted speculum placed in posterior fornix vagina. Anterior lip of the cervix grasped with a single-tooth tenaculum. Knapp's cannula inserted the cervix and attached to the single-tooth to be used later for uterine manipulation. After emptying the bladder of clear urine the weighted speculum was removed the gloves were changed. An infraumbilical incision made the Veress needle passed in the. Abdomen filled with CO2 gas [id number]. 5mm trocar advanced under direct visualization assuring no injury patient placed in Trendelenburg and a suprapubic incision made. 5mm trocar advanced under direct visualization assuring no injury. The proximally 50cc of serosanguineous fluid the cul-de-sac was present this was suction and irrigated. Multiple areas of endometriosis and powder were formed were seen along the uterus sacral ligaments on the right ovary. These were cauterized at 35 w per 2nd. Irrigation undertaken until clear. The appendix appeared within normal limits and the liver edge appeared within normal limits photo documentation undertaken. The lower sites were removed. The gas removed from the abdomen. The upper site removed and the incisions closed with 4-0 Monocryl and glue patient went recovery in satisfactory condition. All sponge, needle, instrument counts were correct. There were no immediate complications Estimated Blood Loss 5 Drains No Packing No Pathology None sent Complications No immediate complications Condition Stable Disposition PACU
[2025-01-27] MEDS: fentaNYL CITRATE INJ (*CRX) 100 MCG/2 ML VIAL 25 MCG IV PUSH ×6 (10:40→11:10)
[2025-01-27] MEDS: oxyCODONE HCL (*CRX) 5 MG TAB IR PO (11:29)
== END 2025-01-27 12:00 | disposition home or self-care (01) ==
PROVIDERS: PCP Nurse Practitioner Family; Visit Provider Obstetrics & Gynecology
PROC: (CPT 49320; principal; 2025-01-27 10:00)
DX: N80.101 Endometriosis of right ovary, unspecified depth (principal); N80.3C9 Endometriosis of the uterosacral ligament(s), unspecified side, unspecified depth; R10.20 Pelvic and perineal pain unspecified side; F17.290 Nicotine dependence, other tobacco product, uncomplicated; F12.90 Cannabis use, unspecified, uncomplicated
CPT/HCPCS: 58662; A9270; J1100; J1885; J2003; J2250; J2405; J2704; J3010; J7120

== ENCOUNTER 2025-02-14 13:50 | Outpatient (CLI) | payer OTHER, SELFPAY ==
[2025-02-14 15:03] LABS: Beta HCG Quantitative < 2.39 mIU/ML
== END 2025-02-14 13:51 | disposition home or self-care (01) ==
LOC: ANHLAB 13:52
PROVIDERS: PCP Nurse Practitioner Family; Visit Provider Obstetrics & Gynecology
DX: Z32.00 Encounter for pregnancy test, result unknown (principal)
CPT/HCPCS: 36415; 84702

== ENCOUNTER 2025-02-27 22:44 | Emergency (ER) | payer OTHER, SELFPAY ==
[2025-02-27 22:47] VITALS: BP 131/93; PULSE 102; RESP 19; TEMP 36.4; O2SAT 100
[2025-02-28] VITALS (12 sets, daily range): BP systolic 98–132; BP diastolic 68–86; PULSE 56–91; RESP 12–22; O2SAT 93–100
[2025-02-28 02:45] LABS: Hematocrit 42.0 % (37.0-47.0); Hemoglobin 14.1 g/dL (12.0-15.0); Immature Granulocyte Percent A 0.3 % (0-0.5); Lymphocytes Absolute Auto 1.25 K/mm3 (0.9-3.2); Mean Corpuscular HGB Conc 33.6 g/dl (32-36); Mean Corpuscular Hemoglobin 28.7 pg (26-34); Mean Corpuscular Volume 85.5 fl (80-100); Nucleated Red Blood Cells Absolute Auto 0.000 K/mm3 (0.0-0.012); Nucleated Red Blood Cells Perc 0.0 % (0.0-0.2); Platelet Count Result 280 k/mm3 (150-375); Red Blood Count 4.91 M/mm3 (4.2-5.4); White Blood Count 11.9 K/mm3 (4.5-10.0)
[2025-02-28 03:04] LABS: Alanine Aminotransferase 33 U/L (6-35); Albumin Level 5.5 g/dL (3.5-5.1); Alkaline Phosphatase 57 U/L (38-126); Anion Gap 14 mmol/L (4-12); Aspartate Amino Transferase 35 U/L (14-36); Bilirubin,Total 1.4 mg/dL (0.2-1.3); Blood Urea Nitrogen 18 mg/dL (7-17); Calcium 9.9 mg/dL (8.4-10.2); Carbon Dioxide 29 mmol/L (22-30); Chloride 93 mmol/L (98-107); Estimated CRCL calculation 81 ml/min; Estimated Glomerular Filt Rate > 60; Glucose 145 mg/dL (65-110); Lipase 81 U/L (23-300); Potassium 3.2 mmol/L (3.4-5.0); Sodium 136 mmol/L (137-145); Total Protein 9.2 g/dL (6.3-8.2)
--- NOTE | 2025-02-28 03:04 | PC.NURSE ---
Pt given toothette to moisten lips with the agreement that she is not to drink the water.
--- OUTSIDE RECORDS SUMMARY | 2025-02-28 03:08 | XMS_ITS | Clinical Summary ---
Author Organization [facility] Address [address] [place] [address] Care Team Providers Care Sociocultural Anthropology Professor Name Role Phone Unavailable Primary Care Provider Unavailabl e Social History Tobacco Use Types Packs/Day Years Used Date Smoking Tobacco: Never Assessed Comments Unknown Sex and Gender Information Value Date Recorded Sex Assigned at Not on file Legal Sex Female 1:46 PM CAN TENDER Gender Identity Not on file Sexual Orientation Not on file Plan of Treatment Health Maintenance Due Date Last Done Comments Hepatitis C Virus (HCV) Screening 1999 TdaP Immunization 1999 Human Papillomavirus (HPV) Immunization (1 - 3-dose series) 2014 Hepatitis B Immunization (1 of 3 - 19+ 3-dose series) 2018 Influenza Immunization (#1) 2024 SARS-COV-2 Immunization ( season) 2024 Respiratory Syncytial Virus (RSV) Immunization (Adult) [...]
--- OUTSIDE RECORDS SUMMARY | 2025-02-28 03:08 | XMS_ITS | Clinical Summary ---
Author Organization [facility] Address [address] [place] [address] Care Team Providers Care Foreign Food Cook Specialty Name Role Phone Brent Rubio MD Primary Care Provider Unav ailable Allergies Active Allergy Reactions Criticality Noted Date Comments [place] Oil Anaphylaxis High 02/09/2022 Cefdinir Diarrhea,Hives,Other (see [...] Sex Assigned at Female 06/20/2024 9:14 PM CLEAT BLANKER Legal Sex Female 8:21 PM CDT Gender Identity Not on file Sexual Orientation Not on file Last Filed Vital Signs Vital Sign Reading Time Taken Comments Blood Pressure 106/58 06/21/2024 1:00 AM CLEAT BLANKER Pulse 110 06/20/2024 9:05 PM CLEAT BLANKER Temperature 37.3 C (99.2 F) 06/20/2024 9:05 PM CLEAT BLANKER Respiratory Rate 18 06/20/2024 9:05 PM CLEAT BLANKER Oxygen Saturation 94% 06/21/2024 1:00 AM CLEAT BLANKER Inhaled Oxygen Concentration - - Weight 58.7 kg (129 lb 6.6 oz) 06/20/2024 9:05 P M CLEAT BLANKER Height 162.6 cm (5' 4) 06/20/2024 9:05 PM CLEAT BLANKER Body Mass Index 22.21 06/20/2024 9:05 PM CLEAT BLANKER Plan of Treatment Health Maintenance Due Date [...] - 2024-2 6 season) 2024 10/08/2020, 09/17/2020 Influenza Adult (#1) 2025 05/25/2020, 05/25/2018 Hepatitis A Vaccines Aged Out No long er eligible based on patient's age to complete this topic Meningococcal B Vaccine Aged Out No l [...] patient's age to complete this topic Insurance [employer] Care Teams Foreign Food Cook Specialty Relationship Specialty Start Date End Date Brent Rubio MD PCP - General 01/04/16
--- OUTSIDE RECORDS SUMMARY | 2025-02-28 03:08 | XMS_ITS | Clinical Summary ---
Author Organization [facility] Address [address] [place] [address] Phone Care Team Providers Care Enrollment Processor Name Role Phone Unavailable Primary Care Provider [...] Encounters Date Type Department Care Team Description 02/14/2025 External Device Data STL ABSTRACTION Provider, Abstract 01/10/2025 External Device Data STL ABSTRACTION Provider, [...] VACCINE (#1) 2024 05/25/2020, 2018 COVID-19 Vaccine (3 - 2024- season) 2024, 09/17/2020 Medical Devices Implanted Type Area Glass Bead Maker Device Identifier Shelf Expiration Date Model / Serial / Lot Barrier Interceed Adh 3x4in 4350 - [id number] Implanted:Qt y: 1 on 02/04/2024 by Rahul Kilgore MD at [facility] Adhesion Barrier N/A: Pelvis [employer]- [employer] [id number] 04/26/2028 [id number] / / [id number] Barrier Interceed Adh 3x4in 4350 - [id number] Implanted:Qt y: 1 on 02/04/2024 by Rahul Kilgore MD at [facility] Adhesion Barrier N/A: Pelvis [employer] [id number] 04/26/2028 [id number] / / [id number] Insurance [employer] OPEN ACCESS HMO RX [employer] Express Advance Directives For more information, please contact: [phone] * Full Code (Latest Code Status on File) Date Activated Date Inactivated Comments 02/04/2024 11:42 AM 02/04/2024 4:01 PM * Full Code Date Activated Date Inactivated Comments 02/04/2024 9:22 AM 02/04/2024 11:42 AM
--- OUTSIDE RECORDS SUMMARY | 2025-02-28 03:08 | XMS_ITS | Clinical Summary ---
Author Organization [facility] Address [address] [place] [address] Care Team Providers Care Synthetic Soil Blocks Pulper Name Role Phone Jennifer Reyes Primary Care Provider [phone] Allergies Active Allergy Reactions Criticality Noted Date Comments Adhesive Rash Medium 01/27/2024 [place] Oil Anaphylaxis High 02/09/2022 Cefdinir Hives,Diarrhea Medium [...] 06/12/2021 Assessment & Plan (06/12/2021 10:35 AM TERRAZZO MECHANIC): Advised no drops in ear Advised wearing cotton in ear when showering for the next week Advised adding 500mg tylenol q6h prn pain to current ibuprofen regimen x 3d Advised f/u if not improving or if worsening over the next week Otalgia, right 06/12/2021 Assessment & Plan (06/12/2021 10:35 AM TERRAZZO MECHANIC): Advised no drops in ear Advised wearing cotton in ear when showering for the next week Advised adding 500mg tylenol q6h prn pain to current ibuprofen regimen x 3d Advised f/u if not improving or if worsening over the next week Dermatitis 06/12/2021 Assessment & Plan (06/12/2021 10:36 AM TERRAZZO MECHANIC): Will add steroid cream bid x 7 days. She was advised f/u in the next week if not improving, sooner if worsening. Tobacco use 06/12/2021 Assessment & Plan (06/12/2021 10:35 AM TERRAZZO MECHANIC): Encouraged continued attempts at smoking cessation, discussed that the wellbutrin may benefit these attempts Moderate episode of recurrent major depressive d isorder 06/12/2021 Assessment & Plan (06/12/2021 10:36 AM TERRAZZO MECHANIC): Continue with care per psychiatry Endometriosis 06/12/2021 Assessment & Plan (06/12/2021 10:36 AM TERRAZZO MECHANIC): Continue with care per president & founder Psychogenic nonepileptic seizure 08/09/2020 Migraine without aura and wi thout status migrainosus, not intractable 04/23/2020 Episodes of decreased attentiveness 04/23/2020 Assessment & Plan (06/12/2021 10:36 AM TERRAZZO MECHANIC): Continue with care per psychiatry Mild intermittent asthma 05/24/2018 Assessment & Plan (05/24/2018 4:45 AM TERRAZZO MECHANIC): Present on admission, currently asymptomatic. -Albuterol PRN Multiple food allergies 05/24/2018 Assessment & Plan (05/24/2018 4:47 AM TERRAZZO MECHANIC): Present on admission, currently asymptomatic. -Epinephrine 0.3mg IM PRN anaphylaxis Cervical pain (neck) 12/02/2016 Assessment & Plan (05/24/2018 4:47 AM TERRAZZO MECHANIC): Present on admission. Given description as unilateral [...] on file Legal Sex Female 11:46 PM TERRAZZO MECHANIC Gender Identity Not on file Sexual Orientation [...] Oxygen Saturation 99% 06/02/2022 10: 15 AM TERRAZZO MECHANIC Inhaled Oxygen Concentration - - Weight 57.5 [...] Screening 06/12/2022 06/12/2021 Covid-19 Vaccine ( season) 2024, 09/17/2020 Influenza Vaccine (#1) 2024 05/25/2020, 2018 Insurance [facility] OPEN ACCESS CIG[employer] OPEN ACCESS [employer] [place] CIGNA OPEN ACCESS [facility] [place] [address] [facility] Advance Directives For more information, please contact: [phone] Documents on File Type Date Recorded Patient Vaccine Key Customer Leader Expl anation ADVANCE DIRECTIVE 05/24/2018 12:50 AM * Full Code (Latest Code Status on File) Date Activated Date Inactivated Comments 06/27/2020 8:51 AM 06/30/2020 8:59 PM * Full Code Date Activated Date Inactivated Comments 05/24/2018 2:35 AM 05/25/2018 6:00 PM Care Teams Synthetic Soil Blocks Pulper Relationship Specialty Start Date End Date Jennifer Reyes PA PCP - General Web Software Engineer 06/12/21
--- OUTSIDE RECORDS SUMMARY | 2025-02-28 03:08 | XMS_ITS | Patient Health Record ---
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 Name Role Phone Herlinda Arriola Unavailable [phone] Allergies Allergen (clinical drug ingredient) Drug/Non Drug [...] Duration) Notes Start Date End Date Status Vraylar 1.5 MG Capsule 1 capsule Orally Once a day; Duration: 30 days 02/09/2025 Active hydrOXYzine HCl 10 MG Tablet 1 tablet Orally three times a day; Duration: 90 days As needed Not-Taking lamoTRIgine 150 MG Tablet 1 tablet Oral Once a day; Duration: 90 days 01/20/2025 Active Immunizations Vaccine Route Administration Date Status Comme nts Novel Fyplmetfk-[id number], preservative free Unknown 05/25/2020 Administered Pfizer Biontech [...] decision-maker Yes Do you have Power of Deputy Sheriff Bailiff for Health or [facility]? 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 SexualityWhat is [...] NoDo you have a medical power of cow trimmer?: NoPublic Health and TravelHave you been to [...] Problem Bipolar affective disorder, currently depressed, mild (204791530) Bipolar disorder, current episode depressed, mild (F31.31) 08/21/19 Active confirmed Problem Generalized anxiety disorder (10110479) Generalized anxiety disorder (F41.1) 08/21/19 Active confirmed Problem Posttraumatic stress disorder (51395270) Post-traumatic stress disorder, chronic (F43.12) 08/21/19 Active confirmed Problem Insomnia disorder related to another mental disorder (20359264) Insomnia due to other mental disorder (F51.05) 08/21/19 Active confirmed Problem Screening for cardiovascular system disease (647953819) Encounter for screening for cardiovascular disorders (Z13.6) Active confirmed Problem Long-term current use of drug therapy (927791908) 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 salvage determiner (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) drug therapy (Z79.899) 08/21/19 Active confirmed Problem Depression Screening (722314795) Encounter for screening for depression (Z13.31) Active confirmed Problem Attention deficit hyperactivity disorder (553734842) ADHD (attention deficit hyperactivity disorder), combined type (F90.2) Active confirmed Problem Bipolar disorder (06985907) Bipolar depression (F31.9) Active confirmed Vital Signs Heart Rate 66 /min 01/31/2025 Respiratory Rate 16 /min 01/31/2025 Height-cm 162.56 cm 01/31/2025 Blood pressure diastolic 72 mm Hg 01/31/2025 Weight-kg 56.7 kg 01/31/2025 Height 64.00 in 01/31/2025 Blood pressure systolic 111 mm Hg 01/31/2025 Weight 125 lbs 01/31/2025 BMI 21.45 kg/m2 01/31/2025 Encounters Encounter Location Date Provider Diagnosis [facility] [address] [address] 02/29/2024 Herlinda Arriola Bipolar disorder, current episode depressed, mild F31.31 ; Generalized anxiety disorder F41.1 ; Insomnia due to other mental disorder F51.05 ; Post-traumatic stress disorder, chronic F43.12 and Other custodial (current) drug therapy Z79.899 [facility] [address] [facility] [address] [place] [address] 04/14/2024 Herlinda Arriola Bipolar disorder, current episode depressed, mild F31.31 ; Generalized anxiety disorder F41.1 ; Insomnia due to other mental disorder F51.05 ; Post-traumatic stress disorder, chronic F43.12 and Other salvage determiner (current) [facility] Z[facility].899 [facility] [address] [facility] [address] [place] [address] 05/16/2024 Herlinda Arriola Bipolar disorder, current episode depressed, mild F31.31 ; Generalized anxiety disorder F41.1 ; Insomnia due to other mental disorder F51.05 ; Post-traumatic stress disorder, chronic F43.12 and Other custodial (current) drug therapy Z79.899 [email or web address] [address] [facility] [address] [facility] [address] [place] [address] 06/02/2024 Herlindahugo Arriola Bipolar disorder, current episode depressed, mild F31.31 ; Generalized anxiety disorder F41.1 ; Insomnia due to other mental disorder F51.05 ; Post-traumatic stress disorder, chronic F43.12 and Other custodial (current) drug therapy Z79.899 [facility] [email or web address] [facility] [address] [address] 06/10/2024 Herlinda Arriola Bipolar disorder, current episode depressed, mild F31.31 ; Generalized anxiety disorder F41.1 ; Insomnia due to other mental disorder F51.05 ; Post-traumatic stress disorder, chronic F43.12 and Other salvage determiner (current) drug therapy Z79.899 [facility] [email or web address] [place] [address] [facility] [address] [facility] [address] [place] [address] 06/24/2024 Herlinda Therel Bipolar disorder, current episode depressed, mild F31.31 ; Generalized anxiety disorder F41.1 ; Insomnia due to other mental disorder F51.05 ; Post-traumatic stress disorder, chronic F43.12 and Other salvage determiner (current) drug therapy Z79.899 [facility] [email or web address] [facility] [address] [facility] [address] [place] [address] 08/08/2024 Herlinda Arriola Encounter for screen ing for depression Z13.31 ; Encounter for screening for cardiovascular disorders Z13.6 ; Bipolar disorder, current episode depressed, mild F31.31 ; Generalized anxiety disorder F41.1 ; Insomnia due to other mental disorder F51.05 ; Post-traumatic stress disorder, chronic F43.12 ; Other custodial (current) drug therapy Z79.899 and ADHD (attention deficit hyperactivity disorder), combined type F90.2 [facility] [place] [address] [facility] [address] [place] [address] 08/23/2024 Herlinda Arriola Encounter for screen ing for depression Z13.31 ; Encounter for screening for cardiovascular disorders Z13.6 ; Bipolar disorder, current episode depressed, mild F31.31 ; Generalized anxiety disorder F41.1 ; Insomnia due to other mental disorder F51.05 ; Post-traumatic stress disorder, chronic F43.12 ; Other salvage determiner (current) drug therapy Z79.899 ; ADHD (attention deficit hyperactivity disorder), combined type F90.2 and Nicotine use Z72.0 [facility] [email or web address] [place] [address] [facility] [address] [address] 09/16/2024 Herlinda Arriola [facility] [email or web address] [place] [address] [facility] [address] [facility] [address] [place] [address] 11/22/2024 Herlinda Arriola Encounter for screen ing for depression Z13.31 ; Bipolar depression F31.9 ; Encounter for screening for cardiovascular disorders Z13.6 ; Generalized anxiety disorder F41.1 ; Insomnia due to other mental disorder F51.05 ; Post-traumatic stress disorder, chronic F43.12 ; Other custodial (current) drug therapy Z79.899 ; ADHD (attention deficit hyperactivity disorder), combined type F90.2 and Nicotine use Z72.0 [facility] [place] [address] [facility] [address] [facility] [address] [place] [address] 12/14/2024 Herlinda Arriola Encounter for screen ing for depression Z13.31 ; Bipolar depression F31.9 ; Encounter for screening for cardiovascular disorders Z13.6 ; Generalized anxiety disorder F41.1 ; Insomnia due to other mental disorder F51.05 ; Post-traumatic stress disorder, chronic F43.12 ; Other custodial (current) drug therapy Z79.899 ; ADHD (attention deficit hyperactivity disorder), combined type F90.2 and Nicotine use Z72.0 [facility] [place] [address] [facility] [address] [place] [address] [place] [address] 01/11/2025 Herlinda Thery Bipolar depression F31.9 ; Generalized anxiety disorder F41.1 ; Insomnia due to other mental disorder F51.05 ; Post-traumatic stress disorder, chronic F43.12 and ADHD (attention deficit hyperactivity disorder), combined type F90.2 [facility] [employer], [facility] [address] [place] [address] [place] [address] 01/20/2025 Herlinda Thery Bipolar depression F31.9 ; Generalized anxiety disorder F41.1 ; Insomnia due to other mental disorder F51.05 ; Post-traumatic stress disorder, chronic F43.12 and ADHD (attention deficit hyperactivity disorder), combined type F90.2 [facility], [facility] [address] [place] [address] [place] [address] 01/24/2025 Herlinda Thery Bipolar depression F31.9 ; Generalized anxiety disorder F41.1 ; Insomnia due to other mental disorder F51.05 and Post-traumatic stress disorder, chronic F43.12 [facility] [employer], [facility] [address] [place] [address] [place] [address] 01/30/2025 Herlinda Thery Bipolar depression F31.9 ; Generalized anxiety disorder F41.1 ; Insomnia due to other mental disorder F51.05 and Post-traumatic stress disorder, chronic F43.12 [facility], [facility] [address] [place] [address] [place] [address] 01/31/2025 Herlinda Thery Bipolar depression F31.9 ; Generalized anxiety disorder F41.1 ; Insomnia due to other mental disorder F51.05 and Post-traumatic stress disorder, chronic F43.12 [facility] [employer], [facility] [address] [place] [address] [place] [address] 02/09/2025 Herlinda Thery Bipolar depression F31.9 ; Generalized anxiety disorder F41.1 ; Insomnia due to other mental disorder F51.05 and Post-traumatic stress disorder, chronic F43.12 [facility] [employer], [facility] [address] [place] [address] [place] [address] 04/13/2024 Herlinda Thery [facility], [facility] [address] [place] [address] [place] [address] 05/16/2024 Herlinda Thery [facility], [facility] [address] [place] [address] [place] [address] 08/22/2024 Herlinda Therel [facility], [facility] [address] [place] [address] [place] [address] 08/22/2024 Herlinda Tariqel [facility], [facility] [address] [place] [address] [place] [address] 08/22/2024 Herlinda Therel [facility], [facility] [address] [facility] [address] [place] [address] 11/22/2024 Herlinda Therel [facility], [facility] [address] [place] [address] [place] [address] 12/12/2024 Herlinda Therel [facility], [facility] [address] [facility] [address] [place] [address] 12/12/2024 Herlinda Tariqel [facility], [facility] [address] [facility] [address] [place] [address] 12/12/2024 Herlinda Arriola Assessments Encounter Date Diagnosis (ICD Code) Assessment Notes Treatment Notes Treatment Clinical Notes Section Notes 01/30/2025 Generalized anxiety disorder (ICD-10 - F41.1) Generalized [...] - educated to take rx as prescribed decrease Abilify 5 mg at bedtime- for 1 week then stop- split 10 mg dose in half has at home no refill needed Add Vraylar 1.5 mg daily samples given and copay card continue rx and educated on complaince rx jaleel 05/19 https://www.[place] .Fing[employer]oo/tigelint-qhu-dyobr puc-hvozkeipw-ijbj/ Patient would like to decrease Lamotrigine in near future Lamotrigine 150 mg - daily continue schedule weekly appointment for depression and situational [...] FND 2. Generalized anxiety disorder -continue medications distiller PRESCRIBES Xanax - not aking often educated to take as prescribed to help anxiety and panic hx Vistaril 10 mg- educated on rx Visatril 10 mg three times as needed for anxiety and panic- educated to take rx for anxiety- not taking often - educated on taking rx for anxiety discuss and educated on medication options patient reported feel like brain zap on Cymbalta diiscuss and educated on d/c Prozac 10 mg daily for anxiety patient reported caused passive SI [...] stop smoking hotline given -Quit - Yes [place] Tobacco Quitline Call a Smoking Quitline [employer] [place]'s Smoking Quitline, (4-939-94E-QUIT) Smokefree.gov, which connects you with your State's Quitline, (0-219-FWSTNYA) Veterans Smoking Quitline, (7-957-JEVUPQM) 6. cannabis use Cannabis Use Education NO [...] of psychosis Cannabis/marijuana information: http_s://nagi.nih.gov/p ublications/drugfacts/c annabis-marijuana http_s://www.[employer]/bcavbcpb-rmq-nfbn vkos-ajdjotmdv-zxwz/ 06/24/2024 Bipolar disorder, current episode depressed, mild [...] rx jaleel 05/19 no refill needed today https://www.[employer]/fleaemko-ocm-ftaju zei-atbecjnug-qpea/ Lamotrigine 200 mg - patient reported depression [...] FND 2. Generalized anxiety disorder -continue medications distiller PRESCRIBES Xanax - educated to take as [...] and educated on complaince rx jaleel 05/19 https://www.[employer]/fdwmmpcb-upl-vkzfw gca-puffgkrmx-xugu/ Lamotrigine 200 mg - schedule weekly appointment [...] FND 2. Generalized anxiety disorder -continue medications distiller PRESCRIBES Xanax - educated to take as [...] stop smoking hotline given -Quit - Yes [place] Tobacco Quitline Call a Smoking Quitline The [employer] [place]'s Smoking Quitline, (2-189-26E-QUIT) Smokefree.gov, which connects you with your State's Quitline, (5-232-OKHTDNO) Veterans Smoking Quitline, (1-272-LSVFLHW) 6. cannabis use Cannabis Use Education NO [...] of psychosis Cannabis/marijuana information: http_s://nagi.nih.gov/p ublications/drugfacts/c annabis-marijuana http_s://www.[employer]/cxvmofoh-odf-sgrw dyum-mdchmkdml-mdcd/ 11/22/2024 Bipolar depression (ICD-10 - F31.9) 1. Bipolar I disorder, most recent episode depression - educated to take rx as prescribed restart Abilify 10 mg at bedtime- having increase depression, agiation continue rx and educated on complaince rx jaleel 05/19 https://www.[employer]/fumggbsx-ujs-strkd oaj-qkxmplman-cjaq/ Lamotrigine 200 mg - schedule weekly appointment [...] FND 2. Generalized anxiety disorder -continue medications distiller PRESCRIBES Xanax - educated to take as [...] nicotine products and stop smoking hotline given 9-145-Quit - Yes [place] Tobacco Quitline Call a Smoking Quitline The [employer] [place]'s Smoking Quitline, (0-660-72W-QUIT) Smokefree.gov, which connects you with your State's Quitline, (7-896-HDCGYAG) Veterans Smoking Quitline, (4-436-RJHSPRZ) 6. cannabis use Cannabis Use Education NO [...] of psychosis Cannabis/marijuana information: http_s://nagi.nih.gov/p ublications/drugfacts/c annabis-marijuana http_s://www.[employer]/pglgeoep-dan-cwfy uwik-bplkotehi-wvhc/ 01/20/2025 Generalized anxiety disorder (ICD-10 - F41.1) Generalized [...] and educated on complaince rx jaleel 05/19 https://www.[employer]/hetndihy-zou-ghpnz oro-ucdbsjvzk-iqls/ Patient would like to decrease Lamotrigine in near future Lamotrigine 150 mg - daily been on this dose 1 week continue at this time schedule weekly appointment for depression and situational [...] FND 2. Generalized anxiety disorder -continue medications distiller PRESCRIBES Xanax - not aking often educated to take as prescribed to help anxiety and panic hx Vistaril 10 mg- educated on rx Visatril 10 mg three times as needed for anxiety and panic- educated to take rx for anxiety- not taking often - educated on taking rx for anxiety discuss and educated on medication options patient reported feel like brain zap on Cymbalta will stop rx D/C Cymbalta 30 mg daily for depression and [...] stop smoking hotline given -Quit - Yes [place] Tobacco Quitline Call a Smoking Quitline [employer] [place]'s Smoking Quitline, (2-037-57R-QUIT) Smokefree.gov, which connects you with your State's Quitline, (3-567-ZHVDWYJ) Veterans Smoking Quitline, (4-151-AWRRIEV) 6. cannabis use Cannabis Use Education NO [...] of psychosis Cannabis/marijuana information: http_s://nagi.nih.gov/p ublications/drugfacts/c annabis-marijuana http_s://www.[employer]/aiwugqyb-qpi-wdvy xefp-pywuyijad-woox/ 01/20/2025 Bipolar depression (ICD-10 - F31.9) 1. Bipolar I disorder, most recent episode depression - educated to take rx as prescribed Abilify 10 mg at bedtime- continue rx and educated on complaince rx jaleel 05/19 https://www.[employer]/bhyigggc-jis-mfplb flc-alnqveemx-smbx/ Patient would like to decrease Lamotrigine in near future Lamotrigine 150 mg - daily been on this dose 1 week continue at this time schedule weekly appointment for depression and situational [...] FND 2. Generalized anxiety disorder -continue medications distiller PRESCRIBES Xanax - not aking often educated to take as prescribed to help anxiety and panic hx Vistaril 10 mg- educated on rx Visatril 10 mg three times as needed for anxiety and panic- educated to take rx for anxiety- not taking often - educated on taking rx for anxiety discuss and educated on medication options patient reported feel like brain zap on Cymbalta will stop rx D/C Cymbalta 30 mg daily for depression and [...] nicotine products and stop smoking hotline given 092-Quit - Yes [place] Tobacco Quitline Call a Smoking Quitline The [employer] [place]'s Smoking Quitline, (1-384-28R-QUIT) Smokefree.gov, which connects you with your State's Quitline, (6-047-MPEEOAF) Veterans Smoking Quitline, (6-625-FMECXVO) 6. cannabis use Cannabis Use Education NO [...] of psychosis Cannabis/marijuana information: http_s://nagi.nih.gov/p ublications/drugfacts/c annabis-marijuana http_s://www.[employer]/izjfxqwh-sjo-dnis wxhe-ctorhovlu-hily/ 01/31/2025 Generalized anxiety disorder (ICD-10 - F41.1) Generalized [...] - educated to take rx as prescribed stop Abilify 5 mg at bedtime- related to Akathesia Add Vraylar 1.5 mg every other day samples given and copay card continue rx and educated on complaince rx jaleel 05/19 https://www.[employer]/kwnyuhit-uvu-jwhtm zqs-ncuohtbnz-olqh/ Patient would like to decrease Lamotrigine in near future Lamotrigine 150 mg - daily continue schedule weekly appointment for depression and situational [...] FND 2. Generalized anxiety disorder -continue medications distiller PRESCRIBES Xanax - not aking often educated to take as prescribed to help anxiety and panic hx Vistaril 10 mg- educated on rx Visatril 10 mg three times as needed for anxiety and panic- educated to take rx for anxiety- not taking often - educated on taking rx for anxiety discuss and educated on medication options patient reported feel like brain zap on Cymbalta diiscuss and educated on d/c Prozac 10 mg daily for anxiety patient reported caused passive SI [...] stop smoking hotline given -Quit - Yes [place] Tobacco Quitline Call a Smoking Quitline [employer] [place]'s Smoking Quitline, (3-082-70N-QUIT) Smokefree.gov, which connects you with your State's Quitline, (0-692-NLMBEUJ) Veterans Smoking Quitline, (3-287-CTFAJPN) 6. cannabis use Cannabis Use Education NO [...] of psychosis Cannabis/marijuana information: http_s://nagi.nih.gov/p ublications/drugfacts/c annabis-marijuana http_s://www.[employer]/kyiaxizi-ydr-aamk svbl-mzecbhcra-urvu/ 01/31/2025 Bipolar depression (ICD-10 - F31.9) 1. Bipolar I disorder, most recent episode depression - educated to take rx as prescribed stop Abilify 5 mg at bedtime- related to Akathesia Add Vraylar 1.5 mg every other day samples given and copay card continue rx and educated on complaince rx jaleel 05/19 https://www.[employer]/guahbmvw-tdw-ednwa bmc-rvigwsixc-ekqm/ Patient would like to decrease Lamotrigine in near future Lamotrigine 150 mg - daily continue schedule weekly appointment for depression and situational [...] FND 2. Generalized anxiety disorder -continue medications distiller PRESCRIBES Xanax - not aking often educated to take as prescribed to help anxiety and panic hx Vistaril 10 mg- educated on rx Visatril 10 mg three times as needed for anxiety and panic- educated to take rx for anxiety- not taking often - educated on taking rx for anxiety discuss and educated on medication options patient reported feel like brain zap on Cymbalta diiscuss and educated on d/c Prozac 10 mg daily for anxiety patient reported caused passive SI [...] stop smoking hotline given -Quit - Yes [place] Tobacco Quitline Call a Smoking Quitline The [employer] [place]'s Smoking Quitline, (7-485-12F-QUIT) Smokefree.gov, which connects you with your State's Quitline, (1-390-WXLIQUE) Veterans Smoking Quitline, (6-177-ZOSTRRD) 6. cannabis use Cannabis Use Education NO [...] of psychosis Cannabis/marijuana information: http_s://nagi.nih.gov/p ublications/drugfacts/c annabis-marijuana http_s://www.[employer]/yufcgfgp-lzy-znwf eoyw-lkopsimgp-ltfs/ 02/09/2025 Generalized anxiety disorder (ICD-10 - F41.1) Generalized [...] - educated to take rx as prescribed Vraylar 1.5 mg - been taking daily samples given and copay card continue rx and educated on complaince rx jaleel 05/19 https://www.[employer]/iswfaing-tca-paarj jyz-gxhxzcczg-bqtf/ Lamotrigine 150 mg - daily continue schedule weekly appointment for depression and situational [...] FND 2. Generalized anxiety disorder -continue medications distiller PRESCRIBES Xanax - not aking often educated to take as prescribed to help anxiety and panic hx Vistaril 10 mg- educated on rx Visatril 10 mg three times as needed for anxiety and panic- educated to take rx for anxiety- not taking often - educated on taking rx for anxiety discuss and educated on medication options patient reported feel like brain zap on Cymbalta diiscuss and educated on patient reported caused passive SI thoughts 08/21/23 [...] stop smoking hotline given -Quit - Yes [place] Tobacco Quitline Call a Smoking Quitline [employer] [place]'s Smoking Quitline, (8-587-73M-QUIT) Smokefree.gov, which connects you with your State's Quitline, (8-859-MMPTXOC) Veterans Smoking Quitline, (2-676-UJPQKMS) 6. cannabis use Cannabis Use Education NO [...] of psychosis Cannabis/marijuana information: http_s://nagi.nih.gov/p ublications/drugfacts/c annabis-marijuana http_s://www.[employer]/ygglgoxe-rbb-tokl ybua-zfddwrjsa-pscp/ 02/09/2025 Bipolar depression (ICD-10 - F31.9) 1. Bipolar I disorder, most recent episode depression - educated to take rx as prescribed Vraylar 1.5 mg - been taking daily samples given and copay card continue rx and educated on complaince rx jaleel 05/19 https://www.[employer]/qohbgdbq-zdm-thcxm ukx-nlwxhmhis-coza/ Lamotrigine 150 mg - daily continue schedule weekly appointment for depression and situational [...] FND 2. Generalized anxiety disorder -continue medications distiller PRESCRIBES Xanax - not aking often educated to take as prescribed to help anxiety and panic hx Vistaril 10 mg- educated on rx Visatril 10 mg three times as needed for anxiety and panic- educated to take rx for anxiety- not taking often - educated on taking rx for anxiety discuss and educated on medication options patient reported feel like brain zap on Cymbalta diiscuss and educated on patient reported caused passive SI thoughts 08/21/23 [...] stop smoking hotline given -Quit - Yes [place] Tobacco Quitline Call a Smoking Quitline [employer] [place]'s Smoking Quitline, (5-936-88F-QUIT) Smokefree.gov, which connects you with your State's Quitline, (0-983-HASZRBQ) Veterans Smoking Quitline, (7-233-NPEVQEL) 6. cannabis use Cannabis Use Education NO [...] of psychosis Cannabis/marijuana information: http_s://nagi.nih.gov/p ublications/drugfacts/c annabis-marijuana http_s://www.[employer]/rykjclcp-bov-exlf znea-uxorvfldf-hoaz/ 01/11/2025 Generalized anxiety disorder (ICD-10 - F41.1) [...] and educated on complaince rx jaleel 05/19 https://www.[employer] Communications/dufroikp-kyl-hllre bqz-pnepmbguw-zitc/ Patient would like to decrease Lamotrigine Decrease [...] FND 2. Generalized anxiety disorder -continue medications distiller PRESCRIBES Xanax - not aking often educated [...] stop smoking hotline given Quit - Yes [place] Tobacco Quitline Call a Smoking Quitline [facility] [employer] [place] Smoking Quitline, (6-796-61E-QUIT) Smokefree.gov, which connects you with your State's Quitline, (0-491-ZABKXCB) Veterans Smoking Quitline, (5-856-WZWMWNO) 6. cannabis use Cannabis Use Education NO [...] of psychosis Cannabis/marijuana information: http_s://nagi.nih.gov/p ublications/drugfacts/c annabis-marijuana http_s://www.[employer]/jtrbxxpa-sfr-atfw lkhp-igtqxvqnb-ywzz/ 01/11/2025 Bipolar depression (ICD-10 - F31.9) 1. Bipolar I disorder, most recent episode depression - educated to take rx as prescribed Abilify 10 mg at bedtime- continue rx and educated on complaince rx jaleel 05/19 https://www.[employer]/hsphauie-oqf-tveor gqy-knubrzuhx-dxkf/ Patient would like to decrease Lamotrigine Decrease [...] FND 2. Generalized anxiety disorder -continue medications distiller PRESCRIBES Xanax - not aking often educated [...] stop smoking hotline given Quit - Yes [place] Tobacco Quitline Call a Smoking Quitline [facility] [employer] [place] Smoking Quitline, (7-702-98K-QUIT) Smokefree.gov, which connects you with your State's Quitline, (3-379-TJYHTMO) [facility] Smoking Quitline, (8-722-TOXOKVO) 6. cannabis use Cannabis Use Education NO [...] of psychosis Cannabis/marijuana information: http_s://nagi.nih.gov/p ublications/drugfacts/c annabis-marijuana http_s://www.Sn[employer]Sn[employer]/ollqtnca-fyl-clbe pxuu-aguanerox-spls/ 08/23/2024 Encounter for screening for depression (ICD-10 - Z13.31) Learning About Depression Screening material was published 1. Bipolar I disorder, most recent episode depression - educated to take rx as prescribed Abilify 10 mg at bedtime continue rx and educated on complaince rx jaleel 05/19 https://www.[employer]/motbftfp-vkk-zcxxc guz-hbsjbyres-ivah/ Lamotrigine 200 mg - schedule weekly appointment [...] FND 2. Generalized anxiety disorder -continue medications distiller PRESCRIBES Xanax - educated to take as [...] and educated on complaince rx jaleel 05/19 https://www.[employer]/ltbinxin-ggl-cajwm cec-bmhzcfebm-ajma/ Lamotrigine 200 mg - patient reported depression [...] FND 2. Generalized anxiety disorder -continue medications distiller PRESCRIBES Xanax - educated to take as [...] in am . Long-term drug therapy - 06/10/2024 Bipolar [...] and educated on complaince rx jaleel 05/19 https://www.[place] [employer]/erczlksy-dcu-qokid wva-fgeaqqfqc-jrgf/ Lamotrigine 200 mg - patient reported depression [...] FND 2. Generalized anxiety disorder -continue medications distiller PRESCRIBES Xanax - educated to take as [...] and educated on complaince rx jaleel 05/19 https://www.[employer]/tfhgtmkj-cix-jkdgn wcz-qlumoengt-tlqd/ Lamotrigine 200 mg - patient reported depression [...] FND 2. Generalized anxiety disorder -continue medications distiller PRESCRIBES Xanax - educated to take as [...] and educated on complaince rx jaleel 05/19 https://www.[employer]/fdycxztl-erf-udzvv jxy-thsbfferv-puct/ Increase Lamotrigine 200 mg - patient reported [...] FND 2. Generalized anxiety disorder -continue medications distiller PRESCRIBES Xanax - educated to take as [...] and educated on complaince rx jaleel 05/19 https://www.[employer]/pvmjaeei-hkk-hetpq glj-dbrnqbvwn-izuz/ Increase Lamotrigine 150 mg - patient reported [...] FND 2. Generalized anxiety disorder -continue medications distiller PRESCRIBES Xanax - educated to take as [...] and educated on complaince rx jaleel 05/19 https://www.[place] .[employer]/qpcnscpd-cqu-dpgmy dnv-phxusgghk-mbhu/ Lamotrigine 100 mg - patient reported depression [...] FND 2. Generalized anxiety disorder -continue medications distiller PRESCRIBES Xanax - educated to take as [...] disorder -therapy 5. Long-term drug therapy - 01/30/2025 Bipolar depression (ICD-10 - F31.9) 1. Bipolar I disorder, most recent episode depression - educated to take rx as prescribed decrease Abilify 5 mg at bedtime- for 1 week then stop- split 10 mg dose in half has at home no refill needed Add Vraylar 1.5 mg daily samples given and copay card continue rx and educated on complaince rx jaleel 05/19 https://www.[place] .[employer]/gcazyqxk-bok-mtjdj mfo-uydyfbxtn-mnje/ Patient would like to decrease Lamotrigine in near future Lamotrigine 150 mg - daily continue schedule weekly appointment for depression and situational [...] FND 2. Generalized anxiety disorder -continue medications distiller PRESCRIBES Xanax - not aking often educated to take as prescribed to help anxiety and panic hx Vistaril 10 mg- educated on rx Visatril 10 mg three times as needed for anxiety and panic- educated to take rx for anxiety- not taking often - educated on taking rx for anxiety discuss and educated on medication options patient reported feel like brain zap on Cymbalta diiscuss and educated on d/c Prozac 10 mg daily for anxiety patient reported caused passive SI [...] stop smoking hotline given Quit - Yes [place] Tobacco Quitline Call a Smoking Quitline [facility] [employer] [place] Smoking Quitline, (6-879-52G-QUIT) Smokefree.gov, which connects you with your State's Quitline, (1-134-AUWVYFS) [facility] Smoking Quitline, (4-175-EMFPPEE) 6. cannabis use Cannabis Use Education NO [...] of psychosis Cannabis/marijuana information: http_s://nagi.nih.gov/p ublications/drugfacts/c annabis-marijuana http_s://www.[employer]/loiuezci-win-mwqv yoax-xaqbllauw-wgwm/ 01/24/2025 Generalized anxiety disorder (ICD-10 - F41.1) Generalized [...] and educated on complaince rx jaleel 05/19 https://www.[employer]/viedrzre-jpi-sufbs zzv-ihxwearna-zjox/ Patient would like to decrease Lamotrigine in near future Lamotrigine 150 mg - daily continue schedule weekly appointment for depression and situational [...] FND 2. Generalized anxiety disorder -continue medications distiller PRESCRIBES Xanax - not aking often educated to take as prescribed to help anxiety and panic hx Vistaril 10 mg- educated on rx Visatril 10 mg three times as needed for anxiety and panic- educated to take rx for anxiety- not taking often - educated on taking rx for anxiety discuss and educated on medication options patient reported feel like brain zap on Cymbalta last visit D/C Cymbalta 30 mg daily reported brain zaps off rx last few days and more anxiety diiscuss and educated on adding Prozac 10 mg daily for anxiety patient reported caused passive SI [...] stop smoking hotline given -Quit - Yes [place] Tobacco Quitline Call a Smoking Quitline [facility] [employer] [place] Smoking Quitline, (8-584-85S-QUIT) Smokefree.gov, which connects you with your State's Quitline, (0-079-SRBMRSJ) [facility] Smoking Quitline, (5-147-GNTYUMM) 6. cannabis use Cannabis Use Education NO [...] of psychosis Cannabis/marijuana information: http_s://nagi.nih.gov/p ublications/drugfacts/c annabis-marijuana http_s://www.[employer]/qxianxjk-eis-ksez gzgq-xwpomwqvs-crmy/ 01/24/2025 Bipolar depression (ICD-10 - F31.9) 1. Bipolar I disorder, most recent episode depression - educated to take rx as prescribed Abilify 10 mg at bedtime- continue rx and educated on complaince rx jaleel 05/19 https://www.[employer]/spolvavr-qwz-jzjbu hue-yesnlkelf-mugg/ Patient would like to decrease Lamotrigine in near future Lamotrigine 150 mg - daily continue schedule weekly appointment for depression and situational [...] FND 2. Generalized anxiety disorder -continue medications distiller PRESCRIBES Xanax - not aking often educated to take as prescribed to help anxiety and panic hx Vistaril 10 mg- educated on rx Visatril 10 mg three times as needed for anxiety and panic- educated to take rx for anxiety- not taking often - educated on taking rx for anxiety discuss and educated on medication options patient reported feel like brain zap on Cymbalta last visit D/C Cymbalta 30 mg daily reported brain zaps off rx last few days and more anxiety diiscuss and educated on adding Prozac 10 mg daily for anxiety patient reported caused passive SI [...] stop smoking hotline given Quit - Yes [place] Tobacco Quitline Call a Smoking Quitline [facility] [employer] [place] Smoking Quitline, (7-174-35H-QUIT) Smokefree.gov, which connects you with your State's Quitline, (7-378-NFXWCCY) [facility] Smoking Quitline, (8-760-MFPCEWV) 6. cannabis use Cannabis Use Education NO [...] of psychosis Cannabis/marijuana information: http_s://nagi.nih.gov/p ublications/drugfacts/c annabis-marijuana http_s://www.[employer]/pynfjoih-ypo-xrqh wriy-ycwknkjns-thcv/ 12/14/2024 Encounter for screening for depression (ICD-10 - Z13.31) Learning About Depression Screening material was published 1. Bipolar I disorder, most recent episode depression - educated to take rx as prescribed Abilify 10 mg at bedtime- continue rx and educated on complaince rx jaleel 05/19 https://www.[employer]/rytzwbjx-xfe-yelpq tpn-stfzhgjhs-zwjk/ Lamotrigine 200 mg - daily schedule weekly [...] FND 2. Generalized anxiety disorder -continue medications distiller PRESCRIBES Xanax - not aking often educated [...] stop smoking hotline given -Quit - Yes [place] Tobacco Quitline Call a Smoking Quitline [facility] [employer] [place] Smoking Quitline, (8-285-50C-QUIT) Smokefree.gov, which connects you with your State's Quitline, (9-144-MBXEATJ) [facility] Smoking Quitline, (8-964-EMPPBYF) 6. cannabis use Cannabis Use Education NO [...] of psychosis Cannabis/marijuana information: http_s://nagi.nih.gov/p ublications/drugfacts/c annabis-marijuana http_s://www.[employer]/giqqncpe-gvg-ukak theq-nmlycfgwv-hmev/ 12/14/2024 Encounter for screening for cardiovascular disorders (ICD-10 - Z13.6) 1. Bipolar I disorder, most recent episode depression - educated to take rx as prescribed Abilify 10 mg at bedtime- continue rx and educated on complaince rx jaleel 05/19 https://www.[employer]/khloivnn-hdu-eflds hel-wrfflwpyb-rftx/ Lamotrigine 200 mg - daily schedule weekly [...] FND 2. Generalized anxiety disorder -continue medications distiller PRESCRIBES Xanax - not aking often educated [...] stop smoking hotline given Quit - Yes [place] Tobacco Quitline Call a Smoking Quitline [facility] [employer] [place] Smoking Quitline, (0-578-35J-QUIT) Smokefree.gov, which connects you with your State's Quitline, (9-400-YPQCANS) [facility] Smoking Quitline, (9-068-HBHHASP) 6. cannabis use Cannabis Use Education NO [...] of psychosis Cannabis/marijuana information: http_s://nagi.nih.gov/p ublications/drugfacts/c annabis-marijuana http_s://www.[employer]/pbstwkjj-eug-knvt vuje-yfyxpxnkq-bhzw/ 01/24/2025 Insomnia due to other mental disorder (ICD-10 - F51.05) 1. Bipolar I disorder, most recent episode depression - educated to take rx as prescribed Abilify 10 mg at bedtime- continue rx and educated on complaince rx jaleel 05/19 https://www.[employer]/lcoxiamf-znp-ehipe kua-zlwmyfvdx-edgz/ Patient would like to decrease Lamotrigine in near future Lamotrigine 150 mg - daily continue schedule weekly appointment for depression and situational [...] FND 2. Generalized anxiety disorder -continue medications distiller PRESCRIBES Xanax - not aking often educated to take as prescribed to help anxiety and panic hx Vistaril 10 mg- educated on rx Visatril 10 mg three times as needed for anxiety and panic- educated to take rx for anxiety- not taking often - educated on taking rx for anxiety discuss and educated on medication options patient reported feel like brain zap on Cymbalta last visit D/C Cymbalta 30 mg daily reported brain zaps off rx last few days and more anxiety diiscuss and educated on adding Prozac 10 mg daily for anxiety patient reported caused passive SI [...] stop smoking hotline given -Quit - Yes [place] Tobacco Quitline Call a Smoking Quitline [facility] [employer] [place] Smoking Quitline, (4-754-36Z-QUIT) Smokefree.gov, which connects you with your State's Quitline, (0-038-MWPFRWY) [facility] Smoking Quitline, (3-409-SZOQSGY) 6. cannabis use Cannabis Use Education NO [...] of psychosis Cannabis/marijuana information: http_s://nagi.nih.gov/p ublications/drugfacts/c annabis-marijuana http_s://www.[employer]/rsrbikwp-rzn-hhuo rqud-qxikbbetz-mhte/ 12/14/2024 Bipolar depression (ICD-10 - F31.9) 1. Bipolar I disorder, most recent episode depression - educated to take rx as prescribed Abilify 10 mg at bedtime- continue rx and educated on complaince rx jaleel 05/19 https://www.[employer]/imulilxu-wmp-ndbkp dcv-jpyknktcs-bdgs/ Lamotrigine 200 mg - daily schedule weekly [...] FND 2. Generalized anxiety disorder -continue medications distiller PRESCRIBES Xanax - not aking often educated [...] stop smoking hotline given Quit - Yes [place] Tobacco Quitline Call a Smoking Quitline [facility] [employer] [place] Smoking Quitline, (3-464-41W-QUIT) Smokefree.gov, which connects you with your State's Quitline, (5-496-QERXNHD) [facility] Smoking Quitline, (1-832-HRSOYEM) 6. cannabis use Cannabis Use Education NO [...] of psychosis Cannabis/marijuana information: http_s://nagi.nih.gov/p ublications/drugfacts/c annabis-marijuana http_s://www.[employer]/edmiamjm-aie-qznb pctt-qjvdzdyyi-jojc/ 01/30/2025 Insomnia due to other mental disorder (ICD-10 - F51.05) 1. Bipolar I disorder, most recent episode depression - educated to take rx as prescribed decrease Abilify 5 mg at bedtime- for 1 week then stop- split 10 mg dose in half has at home no refill needed Add Vraylar 1.5 mg daily samples given and copay card continue rx and educated on complaince rx jaleel 05/19 https://www.[employer]/xivdjomm-rsa-vrdat amo-ipjsgatdz-ylzg/ Patient would like to decrease Lamotrigine in near future Lamotrigine 150 mg - daily continue schedule weekly appointment for depression and situational [...] FND 2. Generalized anxiety disorder -continue medications distiller PRESCRIBES Xanax - not aking often educated to take as prescribed to help anxiety and panic hx Vistaril 10 mg- educated on rx Visatril 10 mg three times as needed for anxiety and panic- educated to take rx for anxiety- not taking often - educated on taking rx for anxiety discuss and educated on medication options patient reported feel like brain zap on Cymbalta diiscuss and educated on d/c Prozac 10 mg daily for anxiety patient reported caused passive SI [...] stop smoking hotline given Quit - Yes [place] Tobacco Quitline Call a Smoking Quitline [facility] [employer] [place] Smoking Quitline, (0-713-72M-QUIT) Smokefree.gov, which connects you with your State's Quitline, (1-206-EYRZLCH) [facility] Smoking Quitline, (6-007-WBXEJYB) 6. cannabis use Cannabis Use Education NO [...] of psychosis Cannabis/marijuana information: http_s://nagi.nih.gov/p ublications/drugfacts/c annabis-marijuana http_s://www.[employer]/laszxcnb-zny-mgrm suxy-kwbgaddwx-lowu/ 02/29/2024 Generalized anxiety disorder (ICD-10 - F41.1) [...] and educated on complaince rx jaleel 05/19 https://www.[employer]/tlwvraxc-bsg-rqmob npu-eaodsevnv-klsf/ Lamotrigine 100 mg - patient reported depression [...] FND 2. Generalized anxiety disorder -continue medications distiller PRESCRIBES Xanax - educated to take as [...] and educated on complaince rx jaleel 05/19 https://www.[employer]/pydnioim-znr-hdkme rop-wlvdtpgum-wpfw/ Increase Lamotrigine 150 mg - patient reported [...] FND 2. Generalized anxiety disorder -continue medications distiller PRESCRIBES Xanax - educated to take as [...] and educated on complaince rx jaleel 05/19 https://www.[employer]/ezttvfvz-srt-kgekf ser-kygmyjrwc-ixir/ Increase Lamotrigine 200 mg - patient reported [...] FND 2. Generalized anxiety disorder -continue medications distiller PRESCRIBES Xanax - educated to take as [...] and educated on complaince rx jaleel 05/19 https://www.[place] .[employer]/gfpqdxqv-lrh-ajadf sse-zwwhnoapc-rvug/ Lamotrigine 200 mg - patient reported depression [...] FND 2. Generalized anxiety disorder -continue medications distiller PRESCRIBES Xanax - educated to take as [...] and educated on complaince rx jaleel 05/19 https://www.[employer]/srdjvsll-drb-atzgi dnq-pxnrtycpb-rdry/ Lamotrigine 200 mg - patient reported depression [...] FND 2. Generalized anxiety disorder -continue medications distiller PRESCRIBES Xanax - educated to take as [...] and educated on complaince rx jaleel 05/19 https://www.[employer]/gqswrels-ilb-efrhi lnd-dmbmmkrlw-rxqy/ Lamotrigine 200 mg - patient reported depression [...] FND 2. Generalized anxiety disorder -continue medications distiller PRESCRIBES Xanax - educated to take as [...] in am . Long-term drug therapy - 02/09/2025 Insomnia due to other mental disorder (ICD-10 - F51.05) 1. Bipolar I disorder, most recent episode depression - educated to take rx as prescribed Vraylar 1.5 mg - been taking daily samples given and copay card continue rx and educated on complaince rx jaleel 05/19 https://www.[employer]/bfcrdzwg-ezi-kdrgn qsf-umfpvnvoj-fqri/ Lamotrigine 150 mg - daily continue schedule weekly appointment for depression and situational [...] FND 2. Generalized anxiety disorder -continue medications distiller PRESCRIBES Xanax - not aking often educated to take as prescribed to help anxiety and panic hx Vistaril 10 mg- educated on rx Visatril 10 mg three times as needed for anxiety and panic- educated to take rx for anxiety- not taking often - educated on taking rx for anxiety discuss and educated on medication options patient reported feel like brain zap on Cymbalta diiscuss and educated on patient reported caused passive SI thoughts 08/21/23 [...] stop smoking hotline given -Quit - Yes [place] Tobacco Quitline Call a Smoking Quitline [facility] [employer] [place] Smoking Quitline, (4-972-50L-QUIT) Smokefree.gov, which connects you with your State's Quitline, (8-922-IWETPZM) [facility] Smoking Quitline, (4-861-AGVKJRN) 6. cannabis use Cannabis Use Education NO [...] of psychosis Cannabis/marijuana information: http_s://nagi.nih.gov/p ublications/drugfacts/c annabis-marijuana http_s://www.[employer]/hiyjdbhe-scc-ghbn qkjo-rjlehglcg-kehy/ 08/23/2024 Encounter for screening for cardiovascular disorders (ICD-10 - Z13.6) 1. Bipolar I disorder, most recent episode depression - educated to take rx as prescribed Adam 10 mg at bedtime continue rx and educated on complaince rx jaleel 05/19 https://www.[employer]/pregbdxn-ndy-uskts ydt-doehnztwr-seth/ Lamotrigine 200 mg - schedule weekly appointment [...] FND 2. Generalized anxiety disorder -continue medications distiller PRESCRIBES Xanax - educated to take as [...] depression - schedule therapy weekly monitor for jalele and hypomania 3. Insomnia disorder related to another mental disorder -stable 4. Chronic post-traumatic stress disorder -therapy 5. ADHD Discuss and educated D/C Straterra 40 mg daily in am- Patient stopped 2 weeks ago - had depression on rx . Long-term drug therapy - 01/11/2025 Insomnia due to other mental disorder (ICD-10 - F51.05) 1. Bipolar I disorder, most recent episode depression - educated to take rx as prescribed Abilify 10 mg at bedtime- continue rx and educated on complaince rx jaleel 05/19 https://www.[employer]/cgrkshkp-gfn-xrtgj pwe-fkqltmnud-xroj/ Patient would like to decrease Lamotrigine Decrease [...] FND 2. Generalized anxiety disorder -continue medications distiller PRESCRIBES Xanax - not aking often educated [...] nicotine products and stop smoking hotline given 759-Quit - Yes [place] Tobacco Quitline Call a Smoking Quitline [facility] [employer] [place] Smoking Quitline, (5-057-72U-QUIT) Smokefree.gov, which connects you with your State's Quitline, (1-592-UDAKCWQ) [facility] Smoking Quitline, (1-497-JBQBYLC) 6. cannabis use Cannabis Use Education NO [...] of psychosis Cannabis/marijuana information: http_s://nagi.nih.gov/p ublications/drugfacts/c annabis-marijuana http_s://www.[employer]/fekpmxty-zbx-ukat hjdm-ojdvktyec-lkdx/ 01/31/2025 Insomnia due to other mental disorder (ICD-10 - F51.05) 1. Bipolar I disorder, most recent episode depression - educated to take rx as prescribed stop Abilify 5 mg at bedtime- related to Akathesia Add Vraylar 1.5 mg every other day samples given and copay card continue rx and educated on complaince rx jaleel 05/19 https://www.[employer]/oqwxecfq-dzk-ezduc ggp-gbbqfmdzk-dlse/ Patient would like to decrease Lamotrigine in near future Lamotrigine 150 mg - daily continue schedule weekly appointment for depression and situational [...] FND 2. Generalized anxiety disorder -continue medications distiller PRESCRIBES Xanax - not aking often educated to take as prescribed to help anxiety and panic hx Vistaril 10 mg- educated on rx Visatril 10 mg three times as needed for anxiety and panic- educated to take rx for anxiety- not taking often - educated on taking rx for anxiety discuss and educated on medication options patient reported feel like brain zap on Cymbalta diiscuss and educated on d/c Prozac 10 mg daily for anxiety patient reported caused passive SI [...] stop smoking hotline given Quit - Yes [place] Tobacco Quitline Call a Smoking Quitline [facility] [employer] [place] Smoking Quitline, (9-886-69I-QUIT) Smokefree.gov, which connects you with your State's Quitline, (2-281-SQQOHCQ) [employer] Smoking Quitline, (1-124-RUIZCWP) 6. cannabis use Cannabis Use Education NO [...] of psychosis Cannabis/marijuana information: http_s://nagi.nih.gov/p ublications/drugfacts/c annabis-marijuana http_s://www.[employer]/izpuwtql-hal-kenw rcmn-vyaqymigx-ajoh/ 01/20/2025 Insomnia due to other mental disorder (ICD-10 - F51.05) 1. Bipolar I disorder, most recent episode depression - educated to take rx as prescribed Abilify 10 mg at bedtime- continue rx and educated on complaince rx jaleel 05/19 https://www.[employer]/piofxlni-qcj-zmavc wup-tbofiebpt-bwyi/ Patient would like to decrease Lamotrigine in near future Lamotrigine 150 mg - daily been on this dose 1 week continue at this time schedule weekly appointment for depression and situational [...] FND 2. Generalized anxiety disorder -continue medications distiller PRESCRIBES Xanax - not aking often educated to take as prescribed to help anxiety and panic hx Vistaril 10 mg- educated on rx Visatril 10 mg three times as needed for anxiety and panic- educated to take rx for anxiety- not taking often - educated on taking rx for anxiety discuss and educated on medication options patient reported feel like brain zap on Cymbalta will stop rx D/C Cymbalta 30 mg daily for depression and [...] stop smoking hotline given -Quit - Yes [place] Tobacco Quitline Call a Smoking Quitline [facility] [employer] [place] Smoking Quitline, (7-791-23D-QUIT) Smokefree.gov, which connects you with your State's Quitline, (9-864-RCGBLRX) [facility] Smoking Quitline, (4-046-NXQMTFH) 6. cannabis use Cannabis Use Education NO [...] of psychosis Cannabis/marijuana information: http_s://nagi.nih.gov/p ublications/drugfacts/c annabis-marijuana http_s://www.[employer]/tmwxgszn-bdy-edss fcpl-epgldedlb-ytlo/ 11/22/2024 Encounter for screening for cardiovascular disorders (ICD-10 - Z13.6) 1. Bipolar I disorder, most recent episode depression - educated to take rx as prescribed restart Abilify 10 mg at bedtime- having increase depression, agiation continue rx and educated on complaince rx jaleel 05/19 https://www.[employer]/opebxkyj-eag-wjots ujt-fvmhmnxlb-wfpb/ Lamotrigine 200 mg - schedule weekly appointment [...] FND 2. Generalized anxiety disorder -continue medications distiller PRESCRIBES Xanax - educated to take as [...] stop smoking hotline given -Quit - Yes [place] Tobacco Quitline Call a Smoking Quitline [facility] [employer] [place] Smoking Quitline, (2-867-22Q-QUIT) Smokefree.gov, which connects you with your State's Quitline, (1-115-QWQWIRY) [facility] Smoking Quitline, (4-149-DXIBMRR) 6. cannabis use Cannabis Use Education NO [...] of psychosis Cannabis/marijuana information: http_s://nagi.nih.gov/p ublications/drugfacts/c annabis-marijuana http_s://www.[employer]/aiokzksv-pjv-insd dslz-pgkrxcgsv-qkpe/ 06/24/2024 Generalized anxiety disorder (ICD-10 - F41.1) [...] rx jaleel 05/19 no refill needed today https://www.[employer]/nfjnjgtt-ruc-cfulz fbz-ankzudmtv-lyco/ Lamotrigine 200 mg - patient reported depression [...] FND 2. Generalized anxiety disorder -continue medications distiller PRESCRIBES Xanax - educated to take as [...] rx jaleel 05/19 no refill needed today https://www.[employer]/nyorraex-bvo-gxwuw ohn-plzcpavad-crzs/ Lamotrigine 200 mg - patient reported depression [...] FND 2. Generalized anxiety disorder -continue medications distiller PRESCRIBES Xanax - educated to take as [...] -therapy 5. Long-term drug therapy - 11/22/2024 Generalized anxiety [...] and educated on complaince rx jaleel 05/19 https://www.[employer]/cbhgrpmb-sui-bnfsf xme-kiovnoyfy-qfrl/ Lamotrigine 200 mg - schedule weekly appointment [...] FND 2. Generalized anxiety disorder -continue medications distiller PRESCRIBES Xanax - educated to take as [...] stop smoking hotline given Quit - Yes [place] Tobacco Quitline Call a Smoking Quitline The [employer] [place] Smoking Quitline, (3-580-83Y-QUIT) Smokefree.gov, which connects you with your State's Quitline, (8-084-MUHERTT) [employer] Smoking Quitline, (4-165-MREMNVI) 6. cannabis use Cannabis Use Education NO [...] of psychosis Cannabis/marijuana information: http_s://nagi.nih.gov/p ublications/drugfacts/c annabis-marijuana http_s://www.[employer]/yrcknzby-mov-iioa cvlo-olayssijv-rbep/ 01/20/2025 Post-traumatic stress disorder, chronic (ICD-10 - F43.12) Post-Traumatic Stress Disorder (PTSD): Care Instructions material was published, Post-Traumatic Stress Disorder (PTSD): Care Instructions material was published, Post-Traumatic Stress Disorder (PTSD): Care Instructions material was published 1. Bipolar I disorder, most recent episode depression - educated to take rx as prescribed Abilify 10 mg at bedtime- continue rx and educated on complaince rx jaleel 05/19 https://www.[employer]/wlaxsofu-wvr-pocvd xeb-qkkzhsftp-oxoc/ Patient would like to decrease Lamotrigine in near future Lamotrigine 150 mg - daily been on this dose 1 week continue at this time schedule weekly appointment for depression and situational [...] FND 2. Generalized anxiety disorder -continue medications distiller PRESCRIBES Xanax - not aking often educated to take as prescribed to help anxiety and panic hx Vistaril 10 mg- educated on rx Visatril 10 mg three times as needed for anxiety and panic- educated to take rx for anxiety- not taking often - educated on taking rx for anxiety discuss and educated on medication options patient reported feel like brain zap on Cymbalta will stop rx D/C Cymbalta 30 mg daily for depression and [...] nicotine products and stop smoking hotline given 553Quit - Yes [place] Tobacco Quitline Call a Smoking Quitline [facility] [employer] [place] Smoking Quitline, (7-169-66Q-QUIT) Smokefree.gov, which connects you with your State's Quitline, (8-320-ZDUUMCE) [facility] Smoking Quitline, (5-817-GLPQKKG) 6. cannabis use Cannabis Use Education NO [...] of psychosis Cannabis/marijuana information: http_s://nagi.nih.gov/p ublications/drugfacts/c annabis-marijuana http_s://www.[employer]/ddtgejqe-mna-xzeg btkc-ylhogxkrs-obyn/ 01/31/2025 Post-traumatic stress disorder, chronic (ICD-10 - F43.12) Post-Traumatic Stress Disorder (PTSD): Care Instructions material was published, Post-Traumatic Stress Disorder (PTSD): Care Instructions material was published, Post-Traumatic Stress Disorder (PTSD): Care Instructions material was published 1. Bipolar I disorder, most recent episode depression - educated to take rx as prescribed stop Abilify 5 mg at bedtime- related to Akathesia Add Vraylar 1.5 mg every other day samples given and copay card continue rx and educated on complaince rx jaleel 05/19 https://www.[employer]/gkgdtpqi-krx-ppciq bbv-bivglorkr-aofw/ Patient would like to decrease Lamotrigine in near future Lamotrigine 150 mg - daily continue schedule weekly appointment for depression and situational [...] FND 2. Generalized anxiety disorder -continue medications distiller PRESCRIBES Xanax - not aking often educated to take as prescribed to help anxiety and panic hx Vistaril 10 mg- educated on rx Visatril 10 mg three times as needed for anxiety and panic- educated to take rx for anxiety- not taking often - educated on taking rx for anxiety discuss and educated on medication options patient reported feel like brain zap on Cymbalta diiscuss and educated on d/c Prozac 10 mg daily for anxiety patient reported caused passive SI [...] stop smoking hotline given Quit - Yes [place] Tobacco Quitline Call a Smoking Quitline [facility] [employer] [facility] [place] Smoking Quitline, (2-169-41N-QUIT) Smokefree.gov, which connects you with your State's Quitline, (6-765-JENOLTO) [facility] Smoking Quitline, (1-558-ZKJEXUS) 6. cannabis use Cannabis Use Education NO [...] of psychosis Cannabis/marijuana information: http_s://nagi.nih.gov/p ublications/drugfacts/c annabis-marijuana http_s://www.[employer]/vdjcdfmv-kuh-ixpr mmll-kzjspwbxg-leoh/ 02/09/2025 Post-traumatic stress disorder, chronic (ICD-10 - F43.12) Post-Traumatic Stress Disorder (PTSD): Care Instructions material was published, Post-Traumatic Stress Disorder (PTSD): Care Instructions material was published, Post-Traumatic Stress Disorder (PTSD): Care Instructions material was published 1. Bipolar I disorder, most recent episode depression - educated to take rx as prescribed Vraylar 1.5 mg - been taking daily samples given and copay card continue rx and educated on complaince rx jaleel 05/19 https://www.[employer]/jspsbzaa-pxr-xaaoo eam-tqwaaggtr-nqxr/ Lamotrigine 150 mg - daily continue schedule weekly appointment for depression and situational [...] FND 2. Generalized anxiety disorder -continue medications distiller PRESCRIBES Xanax - not aking often educated to take as prescribed to help anxiety and panic hx Vistaril 10 mg- educated on rx Visatril 10 mg three times as needed for anxiety and panic- educated to take rx for anxiety- not taking often - educated on taking rx for anxiety discuss and educated on medication options patient reported feel like brain zap on Cymbalta diiscuss and educated on patient reported caused passive SI thoughts 08/21/23 [...] stop smoking hotline given -Quit - Yes [place] Tobacco Quitline Call a Smoking Quitline [facility] [employer] [place] Smoking Quitline, (9-680-50M-QUIT) Smokefree.gov, which connects you with your State's Quitline, (4-711-ENLRBQA) [facility] Smoking Quitline, (7-483-KSKGPLG) 6. cannabis use Cannabis Use Education NO [...] of psychosis Cannabis/marijuana information: http_s://nagi.nih.gov/p ublications/drugfacts/c annabis-marijuana http_s://www.[employer]/jmmgbaxm-ntc-jevt uabf-lvyxzphxn-gsvq/ 01/11/2025 Post-traumatic stress disorder, chronic (ICD-10 - [...] and educated on complaince rx jaleel 05/19 https://www.[employer]/wqbbbhjp-laj-hpzwx ygf-vozxitzjl-ooji/ Patient would like to decrease Lamotrigine Decrease [...] FND 2. Generalized anxiety disorder -continue medications distiller PRESCRIBES Xanax - not aking often educated [...] depression - schedule therapy weekly monitor for jlaeel and hypomania 3. Insomnia disorder related to [...] stop smoking hotline given Quit - Yes [place] Tobacco Quitline Call a Smoking Quitline [facility] [employer] [facility] [place] Smoking Quitline, (6-322-48N-QUIT) Smokefree.gov, which connects you with your State's Quitline, (4-979-ZARZQKY) [facility] Smoking Quitline, (4-172-OUZYMZC) 6. cannabis use Cannabis Use Education NO CONTROL SUBSTANCE PRESCRIBED BY USBHA with cannabis use Recommend decrease/stop cannabis use as it can negatively impact mood, motivation, anxiety, sleep, focus/concentration/mem ory (vigilance, elasticity, processing and attention); can also contribute to development of psychosis. Recommend decrease/stop cannabis use as it may be negatively impacting mood, motivation, anxiety, sleep, focus; can also contribute to development of psychosis Cannabis/marijuana information: http_s://nagi.nih.gov/p ublications/drugfacts/c annabis-marijuana http_s://www.[employer]/bwjzxfhg-txy-iuwk ijsk-tmjpcotcw-cvou/ 08/23/2024 Bipolar disorder, current episode depressed, mild [...] and educated on complaince rx jaleel 05/19 https://www.[employer]/vxkxialo-zpr-ckhol czn-dxpvshuji-amqe/ Lamotrigine 200 mg - schedule weekly appointment [...] FND 2. Generalized anxiety disorder -continue medications distiller PRESCRIBES Xanax - educated to take as [...] and educated on complaince rx jaleel 05/19 https://www.[employer]/ckhqfwnf-yaa-aqnzb wek-jdclnlbij-wpul/ Lamotrigine 200 mg - patient reported depression [...] FND 2. Generalized anxiety disorder -continue medications distiller PRESCRIBES Xanax - educated to take as [...] and educated on complaince rx jaleel 05/19 https://www.[employer] .[employer]/viwbjtud-vit-wfvvd wcu-glqwgpsrn-ipav/ Lamotrigine 200 mg - patient reported depression [...] FND 2. Generalized anxiety disorder -continue medications distiller PRESCRIBES Xanax - educated to take as [...] in am . Long-term drug therapy - 06/10/2024 Insomnia due to other mental disorder (ICD-10 - F51.05) 1. Bipolar I disorder, most recent episode depression - educated to take rx as prescribed Abilify 10 mg at bedtime continue rx and educated on complaince rx jaleel 05/19 https://www.[place] .[employer]/uetrfakt-xoh-qjrmi bzz-olpnjebkq-oewp/ Lamotrigine 200 mg - patient reported depression [...] FND 2. Generalized anxiety disorder -continue medications distiller PRESCRIBES Xanax - educated to take as [...] and educated on complaince rx jaleel 05/19 https://www.[employer]/tufzmiwy-mqz-zrsrn cki-uxngxlcwa-vffj/ Lamotrigine 200 mg - patient reported depression [...] FND 2. Generalized anxiety disorder -continue medications distiller PRESCRIBES Xanax - educated to take as [...] and educated on complaince rx jaleel 05/19 https://www.[employer]/nbcndjuf-wpf-khfew xlm-ckbdfgtgt-qowp/ Increase Lamotrigine 200 mg - patient reported [...] FND 2. Generalized anxiety disorder -continue medications distiller PRESCRIBES Xanax - educated to take as [...] and educated on complaince rx jaleel 05/19 https://www.[employer]/sqjvvrxm-zig-ldghw kbj-upgsyvmqf-ipfq/ Increase Lamotrigine 150 mg - patient reported [...] FND 2. Generalized anxiety disorder -continue medications distiller PRESCRIBES Xanax - educated to take as [...] and educated on complaince rx jaleel 05/19 https://www.[employer]/aunprria-oug-mwdij oqo-vvfeubxlj-nbkh/ Lamotrigine 100 mg - patient reported depression [...] FND 2. Generalized anxiety disorder -continue medications distiller PRESCRIBES Xanax - educated to take as [...] disorder -therapy 5. Long-term drug therapy - 01/24/2025 Post-traumatic stress disorder, chronic (ICD-10 - F43.12) Post-Traumatic Stress Disorder (PTSD): Care Instructions material was published, Post-Traumatic Stress Disorder (PTSD): Care Instructions material was published, Post-Traumatic Stress Disorder (PTSD): Care Instructions material was published 1. Bipolar I disorder, most recent episode depression - educated to take rx as prescribed Abilify 10 mg at bedtime- continue rx and educated on complaince rx jaleel 05/19 https://www.[employer]/hafmdrhw-hzd-ubexe dqa-yaspkstwp-uesq/ Patient would like to decrease Lamotrigine in near future Lamotrigine 150 mg - daily continue schedule weekly appointment for depression and situational [...] FND 2. Generalized anxiety disorder -continue medications distiller PRESCRIBES Xanax - not aking often educated to take as prescribed to help anxiety and panic hx Vistaril 10 mg- educated on rx Visatril 10 mg three times as needed for anxiety and panic- educated to take rx for anxiety- not taking often - educated on taking rx for anxiety discuss and educated on medication options patient reported feel like brain zap on Cymbalta last visit D/C Cymbalta 30 mg daily reported brain zaps off rx last few days and more anxiety diiscuss and educated on adding Prozac 10 mg daily for anxiety patient reported caused passive SI [...] stop smoking hotline given -Quit - Yes [place] Tobacco Quitline Call a Smoking Quitline [facility] [employer] [place] Smoking Quitline, (9-133-34L-QUIT) Smokefree.gov, which connects you with your State's Quitline, (6-057-YDHRRNS) [facility] Smoking Quitline, (3-938-BPTPGAE) 6. cannabis use Cannabis Use Education NO [...] of psychosis Cannabis/marijuana information: http_s://nagi.nih.gov/p ublications/drugfacts/c annabis-marijuana http_s://www.[employer]/eknfzzrm-mvj-hcgr btly-gjoultrxt-ffbw/ 12/14/2024 Generalized anxiety disorder (ICD-10 - F41.1) [...] and educated on complaince rx jaleel 05/19 https://www.[employer]/jfawvtji-wrg-ofjkk fxb-fhinhazgu-tuxd/ Lamotrigine 200 mg - daily schedule weekly [...] FND 2. Generalized anxiety disorder -continue medications distiller PRESCRIBES Xanax - not aking often educated [...] nicotine products and stop smoking hotline given 4Quit - Yes [place] Tobacco Quitline Call a Smoking Quitline [facility] [employer] [place] Smoking Quitline, (3-332-06B-QUIT) Smokefree.gov, which connects you with your State's Quitline, (0-065-EGAVHTN) [facility] Smoking Quitline, (8-662-WNDRGME) 6. cannabis use Cannabis Use Education NO [...] of psychosis Cannabis/marijuana information: http_s://nagi.nih.gov/p ublications/drugfacts/c annabis-marijuana http_s://www.[employer]/gfcapdvh-iwx-fwoe lwbg-gwejudbzx-ryrp/ 01/30/2025 Post-traumatic stress disorder, chronic (ICD-10 - F43.12) Post-Traumatic Stress Disorder (PTSD): Care Instructions material was published, Post-Traumatic Stress Disorder (PTSD): Care Instructions material was published, Post-Traumatic Stress Disorder (PTSD): Care Instructions material was published 1. Bipolar I disorder, most recent episode depression - educated to take rx as prescribed decrease Abilify 5 mg at bedtime- for 1 week then stop- split 10 mg dose in half has at home no refill needed Add Vraylar 1.5 mg daily samples given and copay card continue rx and educated on complaince rx jaleel 05/19 https://www.[employer]/olcwpixu-wwd-hdnmm tdz-iugqirjsz-dtyz/ Patient would like to decrease Lamotrigine in near future Lamotrigine 150 mg - daily continue schedule weekly appointment for depression and situational [...] FND 2. Generalized anxiety disorder -continue medications distiller PRESCRIBES Xanax - not aking often educated to take as prescribed to help anxiety and panic hx Vistaril 10 mg- educated on rx Visatril 10 mg three times as needed for anxiety and panic- educated to take rx for anxiety- not taking often - educated on taking rx for anxiety discuss and educated on medication options patient reported feel like brain zap on Cymbalta diiscuss and educated on d/c Prozac 10 mg daily for anxiety patient reported caused passive SI [...] stop smoking hotline given Quit - Yes [place] Tobacco Quitline Call a Smoking Quitline [facility] [employer] [place] Smoking Quitline, (9-084-60D-QUIT) Smokefree.gov, which connects you with your State's Quitline, (4-871-TKFIAGL) [facility] Smoking Quitline, (7-442-ZPENOCG) 6. 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 Bipolar I disorder, most recent episode depression - educated to take rx as prescribed Abilify 10 mg at bedtime- continue rx and educated on complaince rx jaleel 05/19 https://www.[employer]/bbytikzv-gmh-rrzky ohq-gsposoogs-hsme/ Lamotrigine 200 mg - daily schedule weekly [...] FND 2. Generalized anxiety disorder -continue medications distiller PRESCRIBES Xanax - not aking often educated [...] stop smoking hotline given -Quit - Yes [place] Tobacco Quitline Call a Smoking Quitline [facility] [employer] [place] Smoking Quitline, (2-835-03Y-QUIT) Smokefree.gov, which connects you with your State's Quitline, (1-555-GUCCGZP) [facility] Smoking Quitline, (7-158-IQMTAGZ) 6. 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 Bipolar I disorder, most recent episode depression - educated to take rx as prescribed Abilify 10 mg at bedtime continue rx and educated on complaince rx jaleel 05/19 https://www.[employer]/czfmyppr-ydj-tgdbi jcb-uzqcmhhrv-bymj/ Lamotrigine 200 mg - patient reported depression [...] FND 2. Generalized anxiety disorder -continue medications distiller PRESCRIBES Xanax - educated to take as [...] in am . Long-term drug therapy - 02/29/2024 Post-traumatic stress disorder, chronic (ICD-10 - F43.12) Post-Traumatic Stress Disorder (PTSD): Care Instructions material was published, Post-Traumatic Stress Disorder (PTSD): Care Instructions material was published 1. Bipolar I disorder, most recent episode depression - educated to take rx as prescribed Abilify 10 mg at bedtime started 05/22/22- continue rx and educated on complaince rx jaleel 05/19 https://www.[employer]/wyppotfc-luj-tezad zug-vallqqkhl-uepe/ Lamotrigine 100 mg - patient reported depression [...] FND 2. Generalized anxiety disorder -continue medications distiller PRESCRIBES Xanax - educated to take as [...] and educated on complaince rx jaleel 05/19 https://www.[employer]/qaqyynok-nex-akoua okp-fkhjqsvkt-okpw/ Increase Lamotrigine 150 mg - patient reported [...] FND 2. Generalized anxiety disorder -continue medications distiller PRESCRIBES Xanax - educated to take as [...] and educated on complaince rx jaleel 05/19 https://www.[employer]/zmmdhvob-thj-fxxth xjo-wmroogsct-oweg/ Increase Lamotrigine 200 mg - patient reported [...] FND 2. Generalized anxiety disorder -continue medications distiller PRESCRIBES Xanax - educated to take as [...] and educated on complaince rx jaleel 05/19 https://www.[place] .[employer]/ciocsewr-fll-ahzfe qtw-gkprjoovh-xkqd/ Lamotrigine 200 mg - patient reported depression [...] FND 2. Generalized anxiety disorder -continue medications distiller PRESCRIBES Xanax - educated to take as [...] and educated on complaince rx jaleel 05/19 https://www.[employer]/rcpphsox-dnh-agvlb usq-eiphdolze-gcpi/ Lamotrigine 200 mg - patient reported depression [...] FND 2. Generalized anxiety disorder -continue medications distiller PRESCRIBES Xanax - educated to take as [...] and educated on complaince rx jaleel 05/19 https://www.[employer]/qdwiucly-pov-jjdco ovi-tmttphlku-mseo/ Lamotrigine 200 mg - schedule weekly appointment [...] FND 2. Generalized anxiety disorder -continue medications distiller PRESCRIBES Xanax - educated to take as [...] rx . Long-term drug therapy - 01/11/2025 ADHD (attention deficit hyperactivity disorder), combined [...] and educated on complaince rx jaleel 05/19 https://www.[employer]/hqmicrrp-ekm-asdtz crw-tiyfbzqpl-xxlf/ Patient would like to decrease Lamotrigine Decrease [...] FND 2. Generalized anxiety disorder -continue medications distiller PRESCRIBES Xanax - not aking often educated [...] nicotine products and stop smoking hotline given 09Quit - Yes [place] Tobacco Quitline Call a Smoking Quitline [facility] [employer] [place] Smoking Quitline, (5-439-09L-QUIT) Smokefree.gov, which connects you with your State's Quitline, (8-494-BCBVWGK) [facility] Smoking Quitline, (8-640-BYWFOZY) 6. cannabis use Cannabis Use Education NO [...] of psychosis Cannabis/marijuana information: http_s://nagi.nih.gov/p ublications/drugfacts/c annabis-marijuana http_s://www.[employer]/ftmppota-avy-pwfj yxal-vlgyvsvxi-ybop/ 11/22/2024 Insomnia due to other mental disorder (ICD-10 - F51.05) 1. Bipolar I disorder, most recent episode depression - educated to take rx as prescribed restart Abilify 10 mg at bedtime- having increase depression, agiation continue rx and educated on complaince rx jaleel 05/19 https://www.[employer]/lpygkuwm-xgs-fuzbv rba-jmtkydqpp-zuus/ Lamotrigine 200 mg - schedule weekly appointment [...] FND 2. Generalized anxiety disorder -continue medications distiller PRESCRIBES Xanax - educated to take as [...] nicotine products and stop smoking hotline given 993-Quit - Yes [place] Tobacco Quitline Call a Smoking Quitline [facility] [employer] [place] Smoking Quitline, (7-173-72L-QUIT) Smokefree.gov, which connects you with your State's Quitline, (9-873-MHDAHCR) [facility] Smoking Quitline, (0-068-KZOUSNS) 6. cannabis use Cannabis Use Education NO [...] of psychosis Cannabis/marijuana information: http_s://nagi.nih.gov/p ublications/drugfacts/c annabis-marijuana http_s://www.[employer]/pkaconxe-vjs-ayyq jeno-setcvdldi-irpj/ 01/20/2025 ADHD (attention deficit hyperactivity disorder), combined type [...] and educated on complaince rx jaleel 05/19 https://www.[employer]/xvvwzgrm-osp-jisri whp-nlottqutw-njpf/ Patient would like to decrease Lamotrigine in near future Lamotrigine 150 mg - daily been on this dose 1 week continue at this time schedule weekly appointment for depression and situational [...] FND 2. Generalized anxiety disorder -continue medications distiller PRESCRIBES Xanax - not aking often educated to take as prescribed to help anxiety and panic hx Vistaril 10 mg- educated on rx Visatril 10 mg three times as needed for anxiety and panic- educated to take rx for anxiety- not taking often - educated on taking rx for anxiety discuss and educated on medication options patient reported feel like brain zap on Cymbalta will stop rx D/C Cymbalta 30 mg daily for depression and [...] nicotine products and stop smoking hotline given 925-Quit - Yes [place] Tobacco Quitline Call a Smoking Quitline [facility] [employer] [place] Smoking Quitline, (0-685-21G-QUIT) Smokefree.gov, which connects you with your State's Quitline, (2-215-JQTAJJK) [facility] Smoking Quitline, (2-401-TFJXBOQ) 6. cannabis use Cannabis Use Education NO [...] of psychosis Cannabis/marijuana information: http_s://nagi.nih.gov/p ublications/drugfacts/c annabis-marijuana http_s://www.[employer]/wxatoymn-kuo-wndq uxdj-hxbrxbvws-bele/ 06/24/2024 Post-traumatic stress disorder, chronic (ICD-10 - F43.12) Post-Traumatic Stress Disorder (PTSD): Care Instructions material was published, Post-Traumatic Stress Disorder (PTSD): Care Instructions material was published 1. Bipolar I disorder, most recent episode depression - educated to take rx as prescribed Abilify 10 mg at bedtime continue rx and educated on complaince rx jaleel 05/19 no refill needed today https://www.[employer]/kxtlyama-ain-owsph hpf-qcnnezvbq-jqtp/ Lamotrigine 200 mg - patient reported depression [...] FND 2. Generalized anxiety disorder -continue medications distiller PRESCRIBES Xanax - educated to take as [...] -therapy 5. Long-term drug therapy - 11/22/2024 Post-traumatic stress [...] and educated on complaince rx jaleel 05/19 https://www.[employer]/pwcxosvf-clf-oyokv twh-gshpigxtj-imgo/ Lamotrigine 200 mg - schedule weekly appointment [...] FND 2. Generalized anxiety disorder -continue medications distiller PRESCRIBES Xanax - educated to take as [...] stop smoking hotline given -Quit - Yes [place] Tobacco Quitline Call a Smoking Quitline [facility] [employer] [place] Smoking Quitline, (3-543-49E-QUIT) Smokefree.gov, which connects you with your State's Quitline, (5-588-GEJDJKI) [facility] Smoking Quitline, (5-550-OLXQWHW) 6. cannabis use Cannabis Use Education NO [...] of psychosis Cannabis/marijuana information: http_s://nagi.nih.gov/p ublications/drugfacts/c annabis-marijuana http_s://www.[employer]/ffohstkj-xyj-vbfa odno-tofhulzdd-wsma/ 06/24/2024 Other salvage determiner (current) drug therapy (ICD-10 - Z79.899) Medication Refill: Care Instructions material was published, Medication Refill: Care Instructions material was published 1. Bipolar I disorder, most recent episode depression - educated to take rx as prescribed Abilify 10 mg at bedtime continue rx and educated on complaince rx jaleel 05/19 no refill needed today https://www.[employer]/jtdbvxqk-wiu-lhxjn fxf-fyiwkvraf-kcln/ Lamotrigine 200 mg - patient reported depression [...] FND 2. Generalized anxiety disorder -continue medications distiller PRESCRIBES Xanax - educated to take as [...] 5. Long-term drug therapy - 06/10/2024 Other custodial (current) drug therapy (ICD-10 - Z79.899) Medication Refill: Care Instructions material was published, Medication Refill: Care Instructions material was published 1. Bipolar I disorder, most recent episode depression - educated to take rx as prescribed Abilify 10 mg at bedtime continue rx and educated on complaince rx jaleel 05/19 https://www.[employer]/rcgbmkqr-qms-cuned aqj-raukzxjzd-urdm/ Lamotrigine 200 mg - patient reported depression [...] FND 2. Generalized anxiety disorder -continue medications distiller PRESCRIBES Xanax - educated to take as [...] and educated on complaince rx jaleel 05/19 https://www.[employer]/kzsuguze-kwv-lsarb gph-bthcdiasg-yogt/ Lamotrigine 200 mg - patient reported depression [...] FND 2. Generalized anxiety disorder -continue medications distiller PRESCRIBES Xanax - educated to take as [...] and educated on complaince rx jaleel 05/19 https://www.[employer]/edsmcitl-wdt-qiafp uxx-vxferkowr-rdej/ Lamotrigine 200 mg - schedule weekly appointment [...] FND 2. Generalized anxiety disorder -continue medications distiller PRESCRIBES Xanax - educated to take as [...] on rx . Long-term drug therapy - 06/02/2024 Other salvage determiner (current) drug therapy (ICD-10 - Z79.899) Medication Refill: Care Instructions material was published, Medication Refill: Care Instructions material was published 1. Bipolar I disorder, most recent episode depression - educated to take rx as prescribed Abilify 10 mg at bedtime continue rx and educated on complaince rx jaleel 05/19 https://www.[place] .[employer]/qznpznho-jkt-ibvsg lfg-hvropuohs-xsej/ Lamotrigine 200 mg - patient reported depression [...] FND 2. Generalized anxiety disorder -continue medications distiller PRESCRIBES Xanax - educated to take as [...] 5. Long-term drug therapy - 05/16/2024 Other custodial (current) drug therapy (ICD-10 - Z79.899) Medication Refill: Care Instructions material was published, Medication Refill: Care Instructions material was published 1. Bipolar I disorder, most recent episode depression - educated to take rx as prescribed Abilify 10 mg at bedtime continue rx and educated on complaince rx jaleel 05/19 https://www.[employer]/zwwmqtfw-rrk-ytacf ejb-rtedhtjxm-geuv/ Increase Lamotrigine 200 mg - patient reported [...] FND 2. Generalized anxiety disorder -continue medications distiller PRESCRIBES Xanax - educated to take as [...] 5. Long-term drug therapy - 04/14/2024 Other salvage determiner (current) drug therapy (ICD-10 - Z79.899) Medication Refill: Care Instructions material was published, Medication Refill: Care Instructions material was published 1. Bipolar I disorder, most recent episode depression - educated to take rx as prescribed Abilify 10 mg at bedtime started 05/22/22- continue rx and educated on complaince rx jaleel 1/23 https://www.[employer]/amsfgzvb-ctv-mxpav qqp-xckwklbaj-iiet/ Increase Lamotrigine 150 mg - patient reported [...] FND 2. Generalized anxiety disorder -continue medications distiller PRESCRIBES Xanax - educated to take as [...] 5. Long-term drug therapy - 02/29/2024 Other custodial (current) drug therapy (ICD-10 - Z79.899) Medication Refill: Care Instructions material was published, Medication Refill: Care Instructions material was published 1. Bipolar I disorder, most recent episode depression - educated to take rx as prescribed Abilify 10 mg at bedtime started 05/22/22- continue rx and educated on complaince rx jaleel 05/19 https://www.[employer]/pgskrzsr-qzl-shfih qkv-mjxwijmqg-glfg/ Lamotrigine 100 mg - patient reported depression [...] FND 2. Generalized anxiety disorder -continue medications distiller PRESCRIBES Xanax - educated to take as [...] and educated on complaince rx jaleel 05/19 https://www.[employer]/lfbhhqup-yzw-ifmce rse-jmqetnymp-ipjq/ Lamotrigine 200 mg - daily schedule weekly [...] FND 2. Generalized anxiety disorder -continue medications distiller PRESCRIBES Xanax - not aking often educated [...] stop smoking hotline given Quit - Yes [place] Tobacco Quitline Call a Smoking Quitline [facility] [employer] [place] Smoking Quitline, (6-005-31V-QUIT) Smokefree.gov, which connects you with your State's Quitline, (6-278-CEOUIFH) Veterans Smoking Quitline, (6-087-DICNPDJ) 6. cannabis use Cannabis Use Education NO [...] of psychosis Cannabis/marijuana information: http_s://nagi.nih.gov/p ublications/drugfacts/c annabis-marijuana http_s://[place].[employer]/zdajgazi-jsg-mvko yfsk-mewmsegzv-pgul/ 12/14/2024 Other salvage determiner (current) drug therapy (ICD-10 - Z79.899) Medication Refill: Care Instructions material was published, Medication Refill: Care Instructions material was published, Medication Refill: Care Instructions material was published 1. Bipolar I disorder, most recent episode depression - educated to take rx as prescribed Abilify 10 mg at bedtime- continue rx and educated on complaince rx jaleel 05/19 https://www.[employer]/kxkgzvyn-spj-vvcvd szr-vhunkrliz-yuqt/ Lamotrigine 200 mg - daily schedule weekly [...] FND 2. Generalized anxiety disorder -continue medications distiller PRESCRIBES Xanax - not aking often educated [...] stop smoking hotline given -Quit - Yes [place] Tobacco Quitline Call a Smoking Quitline [facility] [employer] [place]'s Smoking Quitline, (2-187-72B-QUIT) Smokefree.gov, which connects you with your State's Quitline, (4-964-EZLMGUU) Veterans Smoking Quitline, (7-729-TCLSJHX) 6. cannabis use Cannabis Use Education NO [...] of psychosis Cannabis/marijuana information: http_s://nagi.nih.gov/p ublications/drugfacts/c annabis-marijuana http_s://www.[employer]/vlaehowq-apq-majn hdqh-equidezlu-rpyc/ 08/08/2024 Other custodial (current) drug therapy (ICD-10 - Z79.899) Medication Refill: Care Instructions material was published, Medication Refill: Care Instructions material was published, Medication Refill: Care Instructions material was published 1. Bipolar I disorder, most recent episode depression - educated to take rx as prescribed Abilify 10 mg at bedtime continue rx and educated on complaince rx jaleel 05/19 https://www.[employer]/ikoeasxb-mok-tmzes cua-aneggobyp-oubx/ Lamotrigine 200 mg - patient reported depression [...] FND 2. Generalized anxiety disorder -continue medications distiller PRESCRIBES Xanax - educated to take as [...] . Long-term drug therapy - 11/22/2024 Other salvage determiner (current) drug therapy (ICD-10 - Z79.899) Medication Refill: Care Instructions material was published, Medication Refill: Care Instructions material was published, Medication Refill: Care Instructions material was published 1. Bipolar I disorder, most recent episode depression - educated to take rx as prescribed restart Abilify 10 mg at bedtime- having increase depression, agiation continue rx and educated on complaince rx jaleel 05/19 https://www.[employer]/espryryw-qfc-uitcm lap-prjicofuq-dxiz/ Lamotrigine 200 mg - schedule weekly appointment [...] FND 2. Generalized anxiety disorder -continue medications distiller PRESCRIBES Xanax - educated to take as [...] nicotine products and stop smoking hotline given 288-Quit - Yes [place] Tobacco Quitline Call a Smoking Quitline [facility] [employer] [place] Smoking Quitline, (4-516-27V-QUIT) Smokefree.gov, which connects you with your State's Quitline, (9-579-WWJRYWF) Veterans Smoking Quitline, (5-801-DFWVZDF) 6. cannabis use Cannabis Use Education NO [...] of psychosis Cannabis/marijuana information: http_s://nagi.nih.gov/p ublications/drugfacts/c annabis-marijuana http_s://www.[employer]/cnntubtz-jkz-zfqu flav-kosnkcqul-itpm/ 08/23/2024 Post-traumatic stress disorder, chronic (ICD-10 - [...] and educated on complaince rx jaleel 05/19 https://www.[employer]/ywnulnzk-hyd-jemhf mos-ipkukdkin-bqru/ Lamotrigine 200 mg - schedule weekly appointment [...] FND 2. Generalized anxiety disorder -continue medications distiller PRESCRIBES Xanax - educated to take as [...] and educated on complaince rx jaleel 05/19 https://[place].[employer]/kplyivey-tei-dcpfd tav-kcvzfsghm-vrqz/ Lamotrigine 200 mg - schedule weekly appointment [...] FND 2. Generalized anxiety disorder -continue medications distiller PRESCRIBES Xanax - educated to take as [...] stop smoking hotline given Quit - Yes [place] Tobacco Quitline Call a Smoking Quitline [facility] [employer] [place] Smoking Quitline, (5-087-20X-QUIT) Smokefree.gov, which connects you with your State's Quitline, (7-721-ZRZULKW) Veterans Smoking Quitline, (3-640-WEZIEYM) 6. cannabis use Cannabis Use Education NO [...] of psychosis Cannabis/marijuana information: http_s://nagi.nih.gov/p ublications/drugfacts/c annabis-marijuana http_s://www.[employer]/wolyzzml-nss-ybwk tdzi-uurquftdt-esyf/ 08/08/2024 ADHD (attention deficit hyperactivity disorder), combined [...] and educated on complaince rx jaleel 05/19 https://www.[employer]/djpmegft-fui-sqaxc mcj-dtyfpadsu-fdvr/ Lamotrigine 200 mg - patient reported depression [...] FND 2. Generalized anxiety disorder -continue medications distiller PRESCRIBES Xanax - educated to take as [...] . Long-term drug therapy - 08/23/2024 Other custodial (current) drug therapy (ICD-10 - Z79.899) Medication Refill: Care Instructions material was published, Medication Refill: Care Instructions material was published, Medication Refill: Care Instructions material was published 1. Bipolar I disorder, most recent episode depression - educated to take rx as prescribed Abilify 10 mg at bedtime continue rx and educated on complaince rx jaleel 05/19 https://www.[employer]/ejdyeiio-cig-trzis zqf-bthdogvii-gvjl/ Lamotrigine 200 mg - schedule weekly appointment [...] FND 2. Generalized anxiety disorder -continue medications distiller PRESCRIBES Xanax - educated to take as [...] on rx . Long-term drug therapy - 12/14/2024 ADHD [...] and educated on complaince rx jaleel 05/19 https://www.[place] .com/qijayeby-shh-anrdk pxa-sgsrtgcmb-pcut/ Lamotrigine 200 mg - daily schedule weekly [...] FND 2. Generalized anxiety disorder -continue medications distiller PRESCRIBES Xanax - not aking often educated [...] nicotine products and stop smoking hotline given 4311-Quit - Yes [place] Tobacco Quitline Call a Smoking Quitline [facility] [employer] [place] Smoking Quitline, (1-986-65Y-QUIT) Smokefree.gov, which connects you with your State's Quitline, (4-338-EWOXJFD) Veterans Smoking Quitline, (3-321-DBAYKAM) 6. cannabis use Cannabis Use Education NO [...] of psychosis Cannabis/marijuana information: http_s://nagi.nih.gov/p ublications/drugfacts/c annabis-marijuana http_s://www.[employer]/hirkwidw-zdw-iiwv dpnd-omjeehjso-jyra/ 12/14/2024 Nicotine use (ICD-10 - Z72.0) 1. Bipolar I disorder, most recent episode depression - educated to take rx as prescribed Abilify 10 mg at bedtime- continue rx and educated on complaince rx jaleel 05/19 https://www.[employer]/ehckbegb-pzo-hhdal fjv-weuaxzrsu-jslw/ Lamotrigine 200 mg - daily schedule weekly [...] FND 2. Generalized anxiety disorder -continue medications distiller PRESCRIBES Xanax - not aking often educated [...] stop smoking hotline given -Quit - Yes [place] Tobacco Quitline Call a Smoking Quitline [facility] [employer] [facility] [place] Smoking Quitline, (5-202-74A-QUIT) Smokefree.gov, which connects you with your State's Quitline, (2-356-ZKPYFUT) Veterans Smoking Quitline, (1-075-HKPZGDS) 6. cannabis use Cannabis Use Education NO [...] of psychosis Cannabis/marijuana information: http_s://nagi.nih.gov/p ublications/drugfacts/c annabis-marijuana http_s://www.[employer]/ttcjdvry-mng-drib soko-hypvcidar-zyav/ 08/23/2024 ADHD (attention deficit hyperactivity disorder), combined [...] and educated on complaince rx jaleel 05/19 https://www.[employer]/atuftazr-ycm-aduce ckh-zycpxwkpv-nlwr/ Lamotrigine 200 mg - schedule weekly appointment [...] FND 2. Generalized anxiety disorder -continue medications distiller PRESCRIBES Xanax - educated to take as [...] rx . Long-term drug therapy - 11/22/2024 Nicotine use (ICD-10 - Z72.0) 1. Bipolar I disorder, most recent episode depression - educated to take rx as prescribed restart Abilify 10 mg at bedtime- having increase depression, agiation continue rx and educated on complaince rx jaleel 05/19 https://www.[employer]/uyjjxaes-gxb-yaqas ueo-ofwahzykv-rfcj/ Lamotrigine 200 mg - schedule weekly appointment [...] FND 2. Generalized anxiety disorder -continue medications distiller PRESCRIBES Xanax - educated to take as [...] stop smoking hotline given Quit - Yes [place] Tobacco Quitline Call a Smoking Quitline [facility] [employer] [facility] [place] Smoking Quitline, (4-351-63T-QUIT) Smokefree.gov, which connects you with your State's Quitline, (9-493-ZKQNZRQ) Veterans Smoking Quitline, (6-936-RZXDQKZ) 6. cannabis use Cannabis Use Education NO [...] of psychosis Cannabis/marijuana information: http_s://nagi.nih.gov/p ublications/drugfacts/c annabis-marijuana http_s://www.[employer]/utinsnqx-fkd-guoq zmdc-ziuoxjkbu-salr/ 08/23/2024 Nicotine use (ICD-10 - Z72.0) 1. Bipolar I disorder, most recent episode depression - educated to take rx as prescribed Abilify 10 mg at bedtime continue rx and educated on complaince rx jaleel 05/19 https://www.[employer]/bwswcgww-gza-lezjv vov-fychnqlok-ktfs/ Lamotrigine 200 mg - schedule weekly appointment [...] FND 2. Generalized anxiety disorder -continue medications distiller PRESCRIBES Xanax - educated to take as [...] and educated on complaince rx jaleel 05/19 https://www.[place] .[employer]/azesvjft-ysb-fgedz eoh-hbleuftaf-okji/ Lamotrigine 200 mg - patient reported depression [...] FND 2. Generalized anxiety disorder -continue medications distiller PRESCRIBES Xanax - educated to take as [...] and educated on complaince rx jaleel 05/19 https://www.[employer] .com/eiclxgwd-cxy-xotkx pjx-ztkpgoocu-jkdc/ Lamotrigine 200 mg - schedule weekly appointment [...] FND 2. Generalized anxiety disorder -continue medications distiller PRESCRIBES Xanax - educated to take as [...] stop smoking hotline given -Quit - Yes [place] Tobacco Quitline Call a Smoking Quitline [facility] [employer] [place] Smoking Quitline, (5-997-11A-QUIT) Smokefree.gov, which connects you with your State's Quitline, (2-451-VSEWDVU) Veterans Smoking Quitline, (7-541-CBCYCLN) 6. cannabis use Cannabis Use Education NO [...] of psychosis Cannabis/marijuana information: http_s://nagi.nih.gov/p ublications/drugfacts/c annabis-marijuana http_s://www.[employer]/vwkdrkvk-ydo-zdcd auud-uinazwjyc-wedu/ 12/14/2024 Other Bipolar Disorder: Care Instructions material [...] and educated on complaince rx jaleel 05/19 https://www.[place] .[employer]/iuwrezcc-cqn-skanv rmn-sxlqvaygc-ulle/ Lamotrigine 200 mg - daily schedule weekly [...] FND 2. Generalized anxiety disorder -continue medications distiller PRESCRIBES Xanax - not aking often educated [...] stop smoking hotline given -Quit - Yes [place] Tobacco Quitline Call a Smoking Quitline [facility] [employer] [place] Smoking Quitline, (7-881-41U-QUIT) Smokefree.gov, which connects you with your State's Quitline, (8-607-XZTYCBJ) Veterans Smoking Quitline, (9-309-JRMXPHO) 6. cannabis use Cannabis Use Education NO [...] of psychosis Cannabis/marijuana information: http_s://nagi.nih.gov/p ublications/drugfacts/c annabis-marijuana http_s://www.[employer]/wfjbdikv-pez-jtim acmm-ktnvunilb-xwsi/ 01/30/2025 Other Cariprazine material was published 1. Bipolar I disorder, most recent episode depression - educated to take rx as prescribed decrease Abilify 5 mg at bedtime- for 1 week then stop- split 10 mg dose in half has at home no refill needed Add Vraylar 1.5 mg daily samples given and copay card continue rx and educated on complaince rx jaleel 05/19 https://www.[employer]/xqkzgxom-qnl-ctthe qdd-nixprwsbk-eoyd/ Patient would like to decrease Lamotrigine in near future Lamotrigine 150 mg - daily continue schedule weekly appointment for depression and situational [...] FND 2. Generalized anxiety disorder -continue medications distiller PRESCRIBES Xanax - not aking often educated to take as prescribed to help anxiety and panic hx Vistaril 10 mg- educated on rx Visatril 10 mg three times as needed for anxiety and panic- educated to take rx for anxiety- not taking often - educated on taking rx for anxiety discuss and educated on medication options patient reported feel like brain zap on Cymbalta diiscuss and educated on d/c Prozac 10 mg daily for anxiety patient reported caused passive SI [...] stop smoking hotline given Quit - Yes [place] Tobacco Quitline Call a Smoking Quitline [facility] [employer] [place] Smoking Quitline, (8-824-27E-QUIT) Smokefree.gov, which connects you with your State's Quitline, (1-801-VXNNYAD) Veterans Smoking Quitline, (0-745-ZHIRFLC) 6. cannabis use Cannabis Use Education NO [...] of psychosis Cannabis/marijuana information: http_s://nagi.nih.gov/p ublications/drugfacts/c annabis-marijuana http_s://www.[employer]/kwepctpx-fgq-bkdm mzmd-svwnjwxkl-vbxg/ Plan Of Treatment No Information Insurance Providers Payer Name Payer Address Payer Phone Subscriber Number Group Number Insured Name Patient Relationship to Insured Coverage Start Date Coverage End Date [employer] [address] [place] [address] [id number] TRAVIS MACHADO Child - Insured has Financial [...]
[2025-02-28 03:22] LABS: Influenza A QL RT-PCR Negative (Negative); Influenza B QL RT-PCR Negative (Negative); RSV RNA, RT-PCR Negative (Negative); SARS-CoV-2 RNA PCR Negative (Negative)
--- NOTE | 2025-02-28 03:24 | ED.NAVMDI ---
HPI - Nausea/Vomiting/Diarrhea General Chief complaint: Nausea/Vomiting/Diarrhea Stated complaint: vomiting Time Seen by Provider: 02/28/25 02:57 History of Present Illness HPI Narrative: 24-year-old female with history of endometriosis and chronic pelvic pain presenting to the emergency department with nausea and vomiting. She states she gets monthly nausea and vomiting after completing her menses. Does endorse daily marijuana use as well as at a bolus and vapes. States ?and this is not from marijuana or cannabinoid hyperemesis syndrome? patient presents retching and dry heaving. No abdominal pain or discomfort but states that she can not keep anything down for last 24-48 hours. This occurs every month. States she feels like it is related to her endometriosis or her menstrual cycle. Denies any chance of . Tried her Zofran and Compazine at home but through these up. Denies any alcohol use but still uses marijuana. Related Data Home Medications ?Medication ?Instructions ?Recorded ?Confirmed ?Last Taken ?Type aripiprazole 10 mg tablet 10 mg PO HS 06/16/24 01/18/25 Unknown History alprazolam 0.5 mg tablet 0.5 mg PO QID PRN anxiety 01/18/25 01/18/25 Unknown History duloxetine 20 mg capsule,delayed 20 mg PO HS 01/18/25 01/27/25 Unknown History release lamotrigine 150 mg tablet 150 mg PO HS 01/18/25 01/18/25 Unknown History (Lamictal) fluoxetine 20 mg capsule (Prozac) 20 mg PO DAILY 01/27/25 01/27/25 Unknown History Allergies Allergy/AdvReac Type Severity Reaction Status Date / Time tree nut Allergy Severe Anaphylaxis Verified 01/27/25 08:36 clindamycin Allergy Mild Rash Verified 01/27/25 08:36 doxycycline Allergy Mild Rash Verified 01/27/25 08:36 morphine Allergy Mild Agitated Verified 01/27/25 08:36 cefdinir (From Omnicef) Allergy Hives Verified 01/27/25 08:36 bupropion (From Wellbutrin) AdvReac Intermediate Other Verified 01/27/25 08:38 elagolix (From Orilissa) AdvReac Migraine Verified 01/27/25 08:36 escitalopram (From Lexapro) AdvReac Itching Verified 01/27/25 08:36 Review of Systems Review of Systems: As reviewed above in HPI [facility] Past Medical History Medical History History of suicide attempt Depression Endometriosis Asthma Pelvic pain Anxiety Surgical History Surgical History H/O laparoscopy Family History Family History Mother No pertinent past medical history Social History Social History Smoking status: Current some day smoker Tobacco type: e-cigarettes/vaping Alcohol intake: current Alcohol use details: 1-2/MONTH Substance use: current Substance use type: marijuana Other substance usage details: Daily Living arrangements: with family Additional living arrangements comments: MOM Gender identity (if verbalized by the patient): Female Spiritual care concerns: No Exam Narrative: GENERAL: Retching and dry heaving throughout the examination. Spitting up clear material without any vomit. HEAD: [Normocephalic, atraumatic.] EYES: [PERRLA and EOMI.] ENT: Nares clear, no rhinorrhea or epistaxis. Mucous membranes moist. NECK: Supple. CHEST: [Clear to auscultation. No respiratory distress.] HEART: [Regular rate and rhythm]. No murmur heard. [Normal peripheral pulses.] ABDOMEN: [Soft, nondistended], [nontender], [No rigidity or guarding] EXTREMITIES: Normal range of motion. [No edema.] SKIN: Warm, dry, no rash. NEURO: [No focal deficits]. Alert and oriented [x3.] PSYCH: [Normal mood and affect.] Course Vital Signs Vital signs: Vital Signs Temperature 36.4 C 02/27/25 22:47 Pulse Rate 102 H 02/27/25 22:47 Respiratory Rate 19 02/27/25 22:47 Blood Pressure 131/93 H 02/27/25 22:47 Pulse Oximetry 100 02/27/25 22:47 Oxygen Delivery Room Air 02/27/25 22:47 Temperature 36.4 C 02/27/25 22:47 Pulse Rate 73 02/28/25 05:46 Respiratory Rate 16 02/28/25 05:46 Blood Pressure 110/72 02/28/25 05:46 Pulse Oximetry 98 02/28/25 05:46 Oxygen Delivery Room Air 02/28/25 04:15 MDM - Nausea/Vomiting/Diarrhea MDM Narrative Medical decision making narrative: 24-year-old female with history of endometriosis and chronic pelvic pain presenting to the emergency department with nausea and vomiting. She states she gets monthly nausea and vomiting after completing her menses. Does endorse daily marijuana use as well as at a bolus and vapes. States ?and this is not from marijuana or cannabinoid hyperemesis syndrome? patient presents retching and dry heaving. No abdominal pain or discomfort but states that she can not keep anything down for last 24-48 hours. This occurs every month. States she feels like it is related to her endometriosis or her menstrual cycle. Denies any chance of . Tried her Zofran and Compazine at home but through these up. Denies any alcohol use but still uses marijuana. Patient has normal vital signs here without any tachycardia, fever, hypoxemia or significant blood pressure concerns. She is retching and vomiting with clear emesis without any signs of material particles. States she does not believe it is related to cannabinoids and also states that any time she goes to the ER this is with they keep telling her. Patient's symptoms do sound consistent with cyclic vomiting versus cannabinoid hyperemesis syndrome with low suspicion intra-abdominal process. Could very well be related to endometriosis or menstrual cycle but low suspicion. Laboratory studies were ordered as well as COVID panel. She was given droperidol Pepcid and Zofran as well as fluids and re-evaluated. Patient felt better after the antiemetics and re-evaluated. Wants to go home at this time. Does have a small white count and a urinary tract infection. Treated with Bactrim on discharge. Laboratory studies show normal renal function and normal unremarkable LFTs. Normal glucose. Negative test. Safe for discharge home at this time with return precautions. Medical Records Attestation: I reviewed the patient's medical records. Lab Data Attestation: I reviewed the patient's lab results. 02/28/25 02:39 02/28/25 02:39 Labs: Lab Results 02/28/25 02/28/25 02/28/25 Range/Units 02:39 04:12 04:14 WBC 11.9 H (4.5-10.0) K/mm3 RBC 4.91 (4.2-5.4) M/mm3 Hgb 14.1 (12.0-15.0) g/dL Hct 42.0 (37.0-47.0) % MCV 85.5 (80-100) fl MCH 28.7 (26-34) pg MCHC 33.6 (32-36) g/dl RDW 12.7 (11.5-14.5) % Plt Count 280 (150-375) k/mm3 MPV 11.1 H (7.4-10.4) fl Immature Gran % (Auto) 0.3 (0-0.5) % Neut % (Auto) 80.6 H (45.5-73.1) % Lymph % (Auto) 10.5 L (18.3-44.2) % [place] % (Auto) 8.3 (2.6-8.5) % Eos % (Auto) 0.0 (0-4.4) % Baso % (Auto) 0.3 (0.2-1.2) % Lymph # (Auto) 1.25 (0.9-3.2) K/mm3 [place] # (Auto) 1.0 H (0.1-0.6) K/mm3 Eos # (Auto) 0.0 (0-0.3) K/mm3 Baso # (Auto) 0.0 (0.0-0.1) K/mm3 Abs Immat Gran (auto) 0.04 H (0.00-0.031) K/mm3 Absolute Neuts (auto) 9.6 H (1.3-6.7) K/mm3 Absolute Nucleated RBC 0.000 (0.0-0.012) K/mm3 Nucleated RBC % 0.0 (0.0-0.2) % Sodium 136 L (137-145) mmol/L Potassium 3.2 L (3.4-5.0) mmol/L Chloride 93 L (98-107) mmol/L Carbon Dioxide 29 (22-30) mmol/L Anion Gap 14 H (4-12) mmol/L BUN 18 H (7-17) mg/dL Creatinine 0.77 (0.7-1.0) mg/dL Estim Creat Clear Calc 81 ml/min Estimated GFR > 60 (59 - ) Glucose 145 H (65-110) mg/dL Calcium 9.9 (8.4-10.2) mg/dL Total Bilirubin 1.4 H (0.2-1.3) mg/dL AST 35 (14-36) U/L ALT 33 (6-35) U/L Alkaline Phosphatase 57 (38-126) U/L Total Protein 9.2 H (6.3-8.2) g/dL Albumin 5.5 H (3.5-5.1) g/dL Lipase 81 (23-300) U/L Urine Color Dark yellow (Yellow) Urine Appearance Turbid H (Clear) Urine pH 7.0 (5.0-9.0) Ur Specific [place] 1.027 (1.001-1.035) Urine Protein 2+ H (Negative) mg/dL Urine Glucose (UA) Negative (Negative) mg/dL Urine Ketones 3+ H (Negative) mg/dL Ur Blood (Man) Negative (Negative) Urine Nitrate Positive H (Negative) Urine Bilirubin Negative (Negative) Urine Urobilinogen 1.0 (<2.0) mg/dL Add Ur Microanalysis Reviewed Leukocyte Esterase Rfl 2+ H (Negative) HEBER/UL Urine RBC 0-2 (0-2) /hpf Urine WBC 51-100 H (0-3) /hpf Ur Squamous Epith Cells Occasional (Few) /hpf Urine Bacteria 4+ H /hpf Urine Casts 3-5 POC Urine HCG, Qual Negative (Negative) Influenza A (RT-PCR) Negative (Negative) Influenza B (RT-PCR) Negative (Negative) RSV (RT-PCR) Negative (Negative) SARS-CoV-2 RNA (RT-PCR) Negative (Negative) Discharge Plan Discharge Clinical Impression: Cyclic vomiting syndrome, UTI (urinary tract infection) Patient Disposition: Home Condition: Stable Instructions: Antibiotic Form, Cyclic Vomiting Syndrome (ED) Additional Instructions: Follow-up with your regular primary care provider and OBGYN. You did have evidence of urinary tract infection here today so we have prescribed you antibiotics for 7 days. Return with any emergent concerns. Patient Language: Amharic Prescriptions: New sulfamethoxazole-trimethoprim [Bactrim DS] 800-160 mg tablet 1 tablet PO Q12H Qty: 14 0RF No Action lamotrigine [Lamictal] 150 mg tablet 150 mg PO HS alprazolam 0.5 mg tablet 0.5 mg PO QID PRN (Reason: anxiety) duloxetine 20 mg capsule,delayed release(DR/EC) 20 mg PO HS fluoxetine [Prozac] 20 mg capsule 20 mg PO DAILY hydrocodone-acetaminophen 5-325 mg tablet 1 tablet PO Q4H PRN (Reason: pain) Qty: 20 0RF alprazolam 0.5 mg tablet 0.5 mg PO BID Qty: 60 0RF aripiprazole 10 mg tablet 10 mg PO HS prochlorperazine maleate [Compazine] 10 mg tablet 10 mg PO Q8H PRN (Reason: nausea and vomiting) Qty: 20 0RF Follow-up/Referrals: Kiel,Denise Rodríguez APRN [Primary Care Provider, Unknown] Time of Disposition: 05:03
[2025-02-28] MEDS: ONDANSETRON INJ 4 MG/2 ML VIAL IV PUSH (03:34)
[2025-02-28] MEDS: FAMOTIDINE 20 MG/2 ML VIAL IV PUSH (03:35)
[2025-02-28] MEDS: LACTATED RINGERS 1,000 ML 999 ML IV CONT (03:39)
[2025-02-28 04:16] LABS: BEDSIDEPREGUCG Negative (Negative)
[2025-02-28 04:42] LABS: Add Urine Microscopic? YES; Appearance Urine Turbid (Clear); Glucose Urine UA Negative (Negative); Leukocyte Esterase Ur 2+ LEU/UL (Negative); Need Manual Microscopic Reviewed; Nitrate Urine Positive (Negative); Specific Grav Ur 1.027 (1.001-1.035)
== END 2025-02-28 05:34 | disposition home or self-care (01) ==
PROVIDERS: Emergency Provider Student in an Organized Health Care Education/Training Program; PCP Nurse Practitioner Family
DX: R11.15 Cyclical vomiting syndrome unrelated to migraine (principal); N39.0 Urinary tract infection, site not specified; Z20.822 Contact with and (suspected) exposure to COVID-19; F17.290 Nicotine dependence, other tobacco product, uncomplicated; F32.A Depression, unspecified; J45.909 Unspecified asthma, uncomplicated; F41.9 Anxiety disorder, unspecified
CPT/HCPCS: 36415; 80053; 81001; 81025; 83690; 85025; 87086; 87186; 87637; 96361; 96374; 96375; 99284; J1790; J2405; J7120

== ENCOUNTER 2025-04-14 08:37 | Outpatient (CLI) | payer OTHER, SELFPAY ==
--- NOTE | ~2025-04-14 | US_ITS ---
US right upper quadrant Indication: Cholestasis Comparison: None Technique: Thakur-scale and color Doppler images were obtained. Findings: LIVER: Unremarkable, liver contours intact, no lesions. Normal echogenicity. . GALLBLADDER/BILIARY: Unremarkable.No cholelithiais, wall thickening or pericholecystic fluid. No biliary dilatation. CBD 3 mm. Leland sign negative. PANCREAS: Unremarkable. Right Kidney: The right kidney was not imaged. Impression: No acute abnormality. Reviewed, dictated and finalized at location [facility] Impression: No acute abnormality.
== END 2025-04-14 08:38 | disposition home or self-care (01) ==
LOC: MICIMG 08:38
PROVIDERS: PCP Nurse Practitioner Family; Visit Provider Obstetrics & Gynecology
DX: K71.0 Toxic liver disease with cholestasis (principal)
CPT/HCPCS: 76705